=== PATIENT | male | born 1975 | race Caucasian/White ===

== ENCOUNTER 2018-01-29 00:15 | Inpatient (IN) | payer BC ==
[2018-01-29] MEDS ORDERED: HEPARIN SODIUM,PORCINE 5,000 UNIT/ML 1 ML VIAL IV PRN ×3 (00:48→15:04)
[2018-01-29 00:51] LABS: HCT 46.2 % (39.0-53.0); HGB 15.7 gm/dL (13.0-17.5); MCH 31.7 pg (25.0-35.0); MCV 93.1 fL (80.0-100.0); Mean Platelet Volume 7.2; Platelet Count 386 k/uL (150-450); RBC 4.96 m/uL (4.30-5.90); RDW 12.9 % (11.5-15.5); WBC 18.7 k/uL (3.8-10.6)
[2018-01-29 01:00] LABS: INR 1.1 (<1.2); Prothrombin Time 10.6 sec (9.0-12.0)
[2018-01-29] MEDS ORDERED: HEPARIN SOD,PORK IN 0.45% NACL 25,000 UNIT in 0.45% NACL 1 500ML.BAG IV SCH (01:00)
[2018-01-29 01:05] LABS: Partial Thromboplastin Time 87.9 sec (22.0-30.0)
[2018-01-29 01:10] LABS: ALT 55 U/L (21-72); AST 48 U/L (17-59); Albumin 3.9 g/dL (3.5-5.0); Alkaline Phosphatase 43 U/L (38-126); Anion Gap 8 mmol/L; Blood Urea Nitrogen 21 mg/dL (9-20); Carbon Dioxide 26 mmol/L (22-30); Chloride 107 mmol/L (98-107); Glucose 109 mg/dL (74-99); Magnesium 2.2 mg/dL (1.6-2.3); Potassium 4.7 mmol/L (3.5-5.1); Sodium 141 mmol/L (137-145); Total Bilirubin 0.7 mg/dL (0.2-1.3); Total Protein 6.8 g/dL (6.3-8.2)
[2018-01-29] MEDS ORDERED: NALOXONE 0.4 MG/ML 1 ML VIAL IV PRN (01:10)
[2018-01-29] MEDS ORDERED: MORPHINE SULFATE 4 MG/ML SYRINGE IV PRN (01:10)
[2018-01-29] MEDS ORDERED: NITROGLYCERIN SL TABS 0.4 MG TAB SUBLINGUAL PRN ×2 (01:12→12:29)
--- NOTE | 2018-01-29 01:14 | ED ---
Chest Pain HPI - General Chief Complaint: Chest Pain Stated Complaint: Chest pain Time Seen by Provider: 01/29/18 00:26 Source: patient, EMS Mode of arrival: EMS Limitations: no limitations - History of Present Illness Initial Comments: Toby is a 42-year-old overweight male with a history of coronary artery disease status post stenting when he was only 27 years old. Patient presents the ED via EMS from an outside facility for further evaluation of chest pain. Patient reports that he woke from sleep with a pressure-like retrosternal chest pain and a sensation of impending doom. Patient reports that he called his mother and asked her to take her to the hospital but he then began to feel worse so he called 911. Patient was given aspirin and nitro in route to the hospital with improvement in his chest pain and a subsequent relief of his feeling of impending doom. Patient was evaluated at outside hospital where an EKG revealed ST depressions in V5 and V6. Patient was started on heparin and transferred to our hospital for further evaluation by cardiology. Patient reports that since receiving the Nitro he has experiences no further chest pain. The patient reports he did have chest pain similar to this proximally 2 years ago and was evaluated, at that time he was noted to have pneumonia. - Related Data Allergies Allergy/AdvReac Type Severity Reaction Status Date / Time Penicillins Allergy Unknown Verified 01/29/18 00:32 Review of Systems ROS Statement: Those systems with pertinent positive or pertinent negative responses have been documented in the HPI. ROS Other: All systems not noted in ROS Statement are negative. EKG Findings - EKG Comments: EKG Findings:: EKG obtained upon arrival at 12:39 AM, rate is 72, rhythm is sinus, there is a normal axis, there are normal intervals, AR 160, QRS 100, QTC is 477. There are no acute ST elevations or depressions, the ST depressions that were seen previously or no longer present. No evidence of acute ischemia or infarction. Past Medical History Past Medical History: Hypertension Additional Past Medical History / Comment(s): heart stent, History of Any Multi-Drug Resistant Organisms: None Reported Past Surgical History: Heart Catheterization With Stent Additional Past Surgical History / Comment(s): splenectomy. Past Psychological History: No Psychological Hx Reported Smoking Status: Current every day smoker Past Alcohol Use History: Occasional Past Drug Use History: None Reported General Exam - General Exam Comments Initial Comments: Physical Exam GENERAL: Patient is well-developed and well-nourished. Patient is nontoxic and well- hydrated and is in no distress. HENT: Normocephalic, Atraumatic. EYES: PERRL, EOMI PULMONARY: Unlabored respirations. No audible rales rhonchi or wheezing was noted. CARDIOVASCULAR: There is a regular rate and rhythm without any murmurs gallops or rubs. ABDOMEN: Soft and nontender with normal bowel sounds. SKIN: Skin is clear with no lesions or rashes and otherwise unremarkable. : Deferred NEUROLOGIC: Patient is alert and oriented x3. Moving all extremities spontaneously MUSCULOSKELETAL: Normal extremities with adequate strength and full range of motion. No lower extremity swelling or edema. No calf tenderness. PSYCHIATRIC: Normal psychiatric evaluation. Limitations: no limitations Limitations: no limitations Course Vital Signs 01/29/18 01/29/18 00:24 01:49 Temperature 97.8 F Pulse Rate 84 67 Respiratory 18 18 Rate Blood Pressure 133/98 129/84 O2 Sat by Pulse 98 98 Oximetry Chest Pain [facility] Patient care was discussed with transferring physician prior to transfer Patient with an extensive cardiac history presenting with chest pain and ST depressions. Chest pain resolved with nitro. She was placed on heparin prior to transfer. Patient arrived to the ER, stable, no complaints of chest pain. Repeat labs were ordered. Repeat labs reveal improvement in the patient's previously noted leukocytosis of unknown origin Troponin increasing but still within normal limits PTT is elevated, we will titrate heparin appropriately Given the patient's significant history, EKG changes we'll plan to admit the patient for further cardiac evaluation. Disposition Clinical Impression: Chest pain Disposition: ADMITTED IP TO THIS HOSP
[2018-01-29 01:26] LABS: Lymphocytes # (M) 7.67 k/uL (1.0-4.8); Monocytes # (M) 0.75 k/uL (0-1.0); Neutrophils # (M) 10.29 k/uL (1.3-7.7); Neutrophils % (M) 55 %; Nucleated Red Blood Cells 0 /100 WBC (0-0); Total Cells Counted 100
[2018-01-29 01:40] LABS: Creatine Kinase MB 6.5 ng/mL (0.0-2.4)
[2018-01-29 01:47] LABS: Troponin I 0.447 ng/mL (0.000-0.034)
[2018-01-29] MEDS: NITROGLYCERIN OINT 1 INCH/GM PACKET TOPICAL SCH ×5 (03:11→23:38)
[2018-01-29 07:22] LABS: Creatine Kinase MB 6.4 ng/mL (0.0-2.4)
[2018-01-29 07:23] LABS: Troponin I 0.628 ng/mL (0.000-0.034)
--- NOTE | 2018-01-29 10:41 | P.CRDCN ---
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 His primary care physician is Dr. Pierce. He no longer follows with a heart doctor on a regular basis. He presents to the hospital on this occasion with symptoms of chest discomfort in his upper mid sternum area which she describes as severe tightness and heaviness, he states he was short of breath and diaphoretic, and was unable to speak because the pain was so bad. EKG on arrival here showed a normal sinus rhythm with no acute changes noted. Chest x-ray not yet performed. White blood cell count 18.7, hemoglobin 15.7, platelet count 386. Sodium 141, potassium 4.7, BUN 21, creatinine 0.8. Magnesium 2.2. Troponin 0.447, 0.628. BNP 164. At the time of my examination, patient is currently chest pain-free, he's been initiated on IV heparin and started on an aspirin as well as Nitropaste. His blood pressure this morning 120/90 with a heart rate in the 60s, 98% on 2 L of oxygen. Patients home medications included metoprolol and Xanax. Past Medical History Past Medical History: Hypertension Additional Past Medical History / Comment(s): heart stent, History of Any Multi-Drug Resistant Organisms: None Reported Past Surgical History: Heart Catheterization With Stent Additional Past Surgical History / Comment(s): splenectomy. Past Psychological History: No Psychological Hx Reported Smoking Status: Current every day smoker Past Alcohol Use History: Occasional Past Drug Use History: None Reported Medications and Allergies Home Medications Medication Instructions Recorded Confirmed Type ALPRAZolam [Xanax] 0.5 mg PO BID PRN 01/29/18 01/29/18 History Metoprolol Tartrate [Lopressor] 50 mg PO BID 01/29/18 01/29/18 History Allergies Allergy/AdvReac Type Severity Reaction Status Date / Time Penicillins Allergy Unknown Verified 01/29/18 09:05 Physical Exam Vitals: Vital Signs Temp Pulse Resp BP Pulse Ox 01/29/18 09:00 67 15 119/86 99 01/29/18 08:30 66 18 120/90 98 01/29/18 08:00 74 18 112/87 98 01/29/18 07:30 65 16 126/90 99 01/29/18 07:15 69 18 126/90 98 01/29/18 06:02 70 18 126/81 99 01/29/18 06:00 84 17 117/78 99 01/29/18 05:30 80 14 102/65 98 01/29/18 05:00 75 17 116/76 98 01/29/18 04:44 70 18 116/76 99 01/29/18 04:30 68 17 98 01/29/18 04:00 76 20 98 01/29/18 03:30 68 19 99 01/29/18 03:11 78 17 100 01/29/18 03:09 97.6 F 64 18 129/84 100 01/29/18 01:49 67 18 129/84 98 01/29/18 00:24 97.8 F 84 18 133/98 98 Intake and Output 01/28/18 01/29/18 01/29/18 22:59 06:59 14:59 Intake Total 118.839 Balance 118.839 Intake: Intake, IV Titration 118.839 Amount Heparin Sod,Pork in 0.45% 118.839 NaCl 25,000 unit In 0.45 % NaCl 1 500ml.bag @ 20 mls/hr IV .Q24H [facility] Rx#: [id number] Other: Weight 104.326 kg PHYSICAL EXAMINATION: GENERAL: This is a 42-year-old gentleman in no acute distress at the time of my examination HEENT: Head is atraumatic, normocephalic. Pupils equal, round. Sclera anicteric. Conjunctiva are clear. Mucous membranes of the mouth are moist. Neck is supple. There is no elevated jugular venous pressure. No carotid bruit is heard. HEART EXAMINATION: Heart S1, S2 normal. No murmur or gallop heard. CHEST EXAMINATION: Lungs are clear to auscultation and precussion. No chest wall tenderness is noted on palpation or with deep breathing. ABDOMEN: Soft, nontender. Bowel sounds are heard. No organomegaly noted. EXTREMITIES: 2+ peripheral pulses with no evidence of peripheral edema and no calf tenderness noted. NEUROLOGIC patient is awake, alert and oriented 3 . . Results 01/29/18 00:35 01/29/18 00:35 Cardiac Enzymes 01/29/18 01/29/18 01/29/18 Range/Units 00:35 00:35 06:05 AST 48 (17-59) U/L CK-MB (CK-2) 6.5 H 6.4 H (0.0-2.4) ng/mL Troponin I 0.447 H* 0.628 H* (0.000-0.034) ng/mL Coagulation 01/29/18 01/29/18 Range/Units 00:35 06:05 PT 10.6 (9.0-12.0) sec APTT 87.9 H 24.8 (22.0-30.0) sec CBC 01/29/18 Range/Units 00:35 WBC 18.7 H (3.8-10.6) k/uL RBC 4.96 (4.30-5.90) m/uL Hgb 15.7 (13.0-17.5) gm/dL Hct 46.2 (39.0-53.0) % Plt Count 386 (150-450) k/uL Comprehensive Metabolic Panel 01/29/18 Range/Units 00:35 Sodium 141 (137-145) mmol/L Potassium 4.7 (3.5-5.1) mmol/L Chloride 107 (98-107) mmol/L Carbon Dioxide 26 (22-30) mmol/L BUN 21 H (9-20) mg/dL Creatinine 0.82 (0.66-1.25) mg/dL Glucose 109 H (74-99) mg/dL Calcium 10.0 (8.4-10.2) mg/dL AST 48 (17-59) U/L ALT 55 (21-72) U/L Alkaline Phosphatase 43 (38-126) U/L Total Protein 6.8 (6.3-8.2) g/dL Albumin 3.9 (3.5-5.0) g/dL Current Medications Generic Name Dose Route Start Last Admin Trade Name Freq PRN Reason Stop Dose Admin Aspirin 325 mg 01/30/18 09:00 Aspirin PO DAILY NICHOLAS Heparin Sodium (Porcine) 0 unit 01/29/18 00:48 01/29/18 09:30 Heparin IV 4,000 unit PER PROTOCOL PRN Administration Low PTT Protocol Heparin Sodium (Porcine) 5,000 unit 01/29/18 01:12 Heparin IV Q6HR PRN Low PTT Protocol Heparin Sodium/Sodium Chloride 500 mls @ 20 mls/hr 01/29/18 01:00 01/29/18 09 :15 25,000 unit/ Sodium Chloride IV 10.58 units/kg/hr .Q24H NICHOLAS 22.07 mls/hr Titration Protocol Morphine Sulfate 4 mg 01/29/18 01:10 Morphine Sulfate (Inj) IV Q4HR PRN Severe Pain Naloxone HCl 0.2 mg 01/29/18 01:10 Narcan IV Q2M PRN Opioid Reversal Nitroglycerin 1 inch 01/29/18 01:15 01/29/18 09:12 Nitro-Bid Oint TOPICAL 1 inch Q6HR NICHOLAS Administration Nitroglycerin 0.4 mg 01/29/18 01:12 Nitrostat SUBLINGUAL Q5M PRN Chest Pain Intake and Output 01/28/18 01/29/18 01/29/18 22:59 06:59 14:59 Intake Total 118.839 Balance 118.839 Intake: Intake, IV Titration 118.839 Amount Heparin Sod,Pork in 0.45% 118.839 NaCl 25,000 unit In 0.45 % NaCl 1 500ml.bag @ 20 mls/hr IV .Q24H [facility] Rx#: [id number] Other: Weight 104.326 kg 01/29/18 00:35 01/29/18 00:35 EKG Interpretations (text) EKG shows normal sinus rhythm with no acute changes. Assessment and Plan Plan: Assessment and plan #1 symptoms of midsternal chest pressure and heaviness with associated diaphoresis and shortness of breath, abnormality in troponin noted here and EKG shows normal sinus rhythm with no acute changes. Clinical picture suggestive of non-Q-wave myocardial infarction. #2 known history of coronary artery disease with prior stent placement several years ago in [facility] by Dr. Rogers. #3 hypertension #4 hyperlipidemia #5 nicotine dependence Plan We will obtain a third troponin value, echocardiogram with Doppler study will be obtained. We will continue aspirin along with IV heparin, initiate beta genna and statin. Patient has been advised that he may need to undergo cardiac catheterization, the risks and benefits were again explained to the patient in detail and he states he is willing to proceed. Further recommendations will be based on these findings and the patient's clinical course. DNP note has been reviewed, I agree with a documented findings and plan of care. Patient was seen and examined.
[2018-01-29] MEDS ORDERED: INFLUENZA VACCINE (6 MOS+) 60 MCG/0.5 ML SYRINGE IM ONE (10:50)
[2018-01-29] MEDS ORDERED: MORPHINE ORAL SOLN 10 MG/5 ML CUP PO PRN (11:27)
[2018-01-29] MEDS: METOPROLOL TARTRATE 25 MG TAB PO SCH ×2 (11:51→20:26)
[2018-01-29] MEDS: ATORVASTATIN 80 MG TAB PO SCH (11:51)
--- NOTE | 2018-01-29 12:20 | ECHOF ---
Referral Reason:chest pain MEASUREMENTS -------- HEIGHT: 177.8 cm WEIGHT: 104.3 kg BP: 119/86 IVSd: 1.2 cm (0.6 - 1.1) LVIDd: 4.3 cm (3.9 - 5.3) LVPWd: 1.1 cm (0.6 - 1.1) IVSs: 1.4 cm LVIDs: 2.4 cm LVPWs: 1.3 cm LAESV Index (A-L): 23.05 ml/m Ao Diam: 3.9 cm (2.0 - 3.7) AV Cusp: 1.9 cm (1.5 - 2.6) LA Diam: 1.9 cm (2.7 - 3.8) EPSS: 1.0 cm MV E Jacky: 1.05 m/s MV DecT: 250 ms MV A Jacky: 1.09 m/s MV E/A Ratio: 0.96 RAP: 5.00 mmHg RVSP: 24.22 mmHg MV EF SLOPE: 81.96 mm/s (70 - 150) MV EXCURSION: 1.70 cm (> 18.000) FINDINGS -------- Sinus rhythm. This was a technically adequate study. The left ventricular size is normal. There is mild concentric left ventricular hypertrophy. Overa ll left ventricular systolic function is normal with, an EF between 55 - 60 %. The right ventricle is normal in size and function. Normal LA size by volume 22+/-6 ml/m2. The right atrium is normal in size. Aortic valve is trileaflet and is mildly thickened. Trace amount of aortic regurgitation. There is no evidence of aortic stenosis. The mitral valve leaflets are mildly thickened. Mild mitral annular calcification present. There is trace to mild mitral regurgitation. Trace tricuspid regurgitation present. Right ventricular systolic pressure is normal at < 35 mmHg. There is no evidence of pulmonary hypertension. The pulmonic valve was not well visualized. The aortic root is mildy dilated, up to 4.0 cm. Normal inferior vena cava with normal inspiratory collapse consistent with estimated right atrial pre ssure of 5 mmHg. There is no pericardial effusion. CONCLUSIONS -------- 1. Sinus rhythm. 2. This was a technically adequate study. 3. The left ventricular size is normal. 4. There is mild concentric left ventricular hypertrophy. 5. Overall left ventricular systolic function is normal with, an EF between 55 - 60 %. 6. Normal LA size by volume 22+/-6 ml/m2. 7. Aortic valve is trileaflet and is mildly thickened. 8. Trace amount of aortic regurgitation. 9. The mitral valve leaflets are mildly thickened. 10. Mild mitral annular calcification present. 11. There is trace to mild mitral regurgitation. 12. Trace tricuspid regurgitation present. 13. Right ventricular systolic pressure is normal at < 35 mmHg. 14. There is no evidence of pulmonary hypertension. 15. The pulmonic valve was not well visualized. 16. The aortic root is mildy dilated, up to 4.0 cm. 17. There is no pericardial effusion. [employer]KER: Daniel Velazquez RDCS
[2018-01-29] MEDS ORDERED: ATORVASTATIN 80 MG TAB PO STA (12:29)
[2018-01-29] MEDS ORDERED: ALPRAZolam 0.5 MG TAB PO PRN (12:29)
[2018-01-29] MEDS ORDERED: ASPIRIN 325 MG TAB PO STA (12:29)
[2018-01-29] MEDS: SODIUM CHLORIDE 0.9% 1,000 ML in EMPTY BAG 1 BAG IV ONE (12:47)
[2018-01-29 13:05] LABS: Creatine Kinase MB 5.9 ng/mL (0.0-2.4)
[2018-01-29 13:14] LABS: Troponin I 0.457 ng/mL (0.000-0.034)
[2018-01-29] MEDS ORDERED: fentaNYL (PF) 50 MCG/ML 2 ML AMP IV ONE (14:15)
[2018-01-29] MEDS ORDERED: VERAPAMIL 2.5 MG/ML 2 ML AMP ONE (14:18)
[2018-01-29] MEDS ORDERED: LIDOCAINE 1% INJ 10MG/ML (20 ML MDV) ONE (14:18)
[2018-01-29] MEDS ORDERED: HEPARIN SODIUM 1,000 UN/ML (10ML VL) ONE (14:18)
[2018-01-29] MEDS ORDERED: fentaNYL (PF) 50 MCG/ML 2 ML AMP ONE (14:18)
[2018-01-29] MEDS ORDERED: LIDOCAINE 1% INJ 10MG/ML (20 ML MDV) SQ ONE (14:25)
[2018-01-29] MEDS ORDERED: MIDAZOLAM 2 MG/2 ML VIAL ONE (14:25)
[2018-01-29] MEDS ORDERED: MIDAZOLAM 2 MG/2 ML VIAL IVP ONE (14:26)
[2018-01-29] MEDS ORDERED: VERAPAMIL SYRINGE (5 MG/10 ML) INTRAARTER ONE (14:27)
[2018-01-29] MEDS ORDERED: IV FLUID CONTINUATION 300 ML IV ONE (14:30)
[2018-01-29] MEDS ORDERED: HEPARIN SODIUM 1,000 UN/ML (10ML VL) IV ONE (14:41)
[2018-01-29] MEDS ORDERED: IOPAMIDOL-370 125ML BTL INJ ONE (14:48)
[2018-01-29] MEDS ORDERED: RX INFO: IV CONTRAST WAS GIVEN 1 EACH MISC MISCELLANE PRN (15:01)
[2018-01-29] MEDS ORDERED: SODIUM CHLORIDE 0.9% 1,000 ML IV SCH (15:15)
[2018-01-29 15:56] LABS: HCT 45.8 % (39.0-53.0); HGB 14.5 gm/dL (13.0-17.5); MCHC 31.6 g/dL (31.0-37.0); MCV 94.7 fL (80.0-100.0); Mean Platelet Volume 7.2; Platelet Count 396 k/uL (150-450); RBC 4.84 m/uL (4.30-5.90); RDW 13.1 % (11.5-15.5); WBC 20.6 k/uL (3.8-10.6)
[2018-01-29 16:04] LABS: INR 1.1 (<1.2); Partial Thromboplastin Time 89.9 sec (22.0-30.0); Prothrombin Time 10.9 sec (9.0-12.0)
[2018-01-29 16:32] LABS: Eosinophils # (M) 0.82 k/uL (0-0.7); Lymphocytes # (M) 8.65 k/uL (1.0-4.8); Monocytes # (M) 1.85 k/uL (0-1.0); Neutrophils # (M) 9.27 k/uL (1.3-7.7); Neutrophils % (M) 45 %; Nucleated Red Blood Cells 0 /100 WBC (0-0); Total Cells Counted 100
[2018-01-29 16:33] LABS: Toxic Granulation Present
--- NOTE | 2018-01-29 16:53 | P.HPIM ---
History of Present Illness This is a pleasant 42 years old male with past medical history of hypertension, coronary artery disease status post stenting. He presents because of central chest pain severe enough to prevent him from talking Like a fist sitting on his chest associated with some dyspnea. The pain woke him up from sleep. He follow -up with Dr. Pierce recommended him, stress test most likely because of his lifestyle and risk factors. Patient is obese with has heavy smoker. However he could not have a stress test done because his co-pay was $800 with his insurance so rejected to do the test. 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 And his been evaluated for cardiothoracic surgery for possible CABG On admission/shows elevated troponins. INR 1.1, and progressive leukocytosis from 18.7 to 20.6 K, mostly related to his heart attack. LFTs were unremarkable. Echo shows EF 55-60%. With mild LVH, EKG showing 72 BPM with no significant ST deviation Review of Systems CONSTITUTIONAL: No fever, no malaise, no fatigue. HEENT: No recent visual problems or hearing problems. Denied any sore throat. CARDIOVASCULAR: No orthopnea, PND, no palpitations, no syncope. PULMONARY: No shortness of breath, no cough, no hemoptysis. GASTROINTESTINAL: No diarrhea, no nausea, no vomiting, no abdominal pain. Normoactive bowel sounds. NEUROLOGICAL: No headaches, no weakness, no numbness. HEMATOLOGICAL: Denies any bleeding or petechiae. GENITOURINARY: Denies any burning micturition, frequency, or urgency. MUSCULOSKELETAL/RHEUMATOLOGICAL: Denies any joint pain, swelling, or any muscle pain. ENDOCRINE: Denies any polyuria or polydipsia. Past Medical History Past Medical History: Hypertension Additional Past Medical History / Comment(s): heart stent, Last Myocardial Infarction Date:: 2011 History of Any Multi-Drug Resistant Organisms: None Reported Past Surgical History: Heart Catheterization With Stent Additional Past Surgical History / Comment(s): splenectomy. Past Anesthesia/Blood Transfusion Reactions: No Reported Reaction Date of Last Stent Placement:: 2006 Smoking Status: Current every day smoker - Past Family History Father Family Medical History: Diabetes Mellitus Mother Family Medical History: Diabetes Mellitus Medications and Allergies Home Medications Medication Instructions Recorded Confirmed Type ALPRAZolam [Xanax] 0.5 mg PO BID PRN 01/29/18 01/29/18 History Metoprolol Tartrate [Lopressor] 50 mg PO BID 01/29/18 01/29/18 History Allergies Allergy/AdvReac Type Severity Reaction Status Date / Time Penicillins Allergy Unknown Verified 01/29/18 09:05 Physical Exam Vitals: Vital Signs Temp Pulse Pulse Resp BP BP Pulse Ox 01/29/18 11:36 97.6 F 77 16 141/91 01/29/18 09:00 67 15 119/86 99 01/29/18 08:30 66 18 120/90 98 01/29/18 08:00 74 18 112/87 98 01/29/18 07:30 65 16 126/90 99 01/29/18 07:15 69 18 126/90 98 01/29/18 06:02 70 18 126/81 99 01/29/18 06:00 84 17 117/78 99 01/29/18 05:30 80 14 102/65 98 01/29/18 05:00 75 17 116/76 98 01/29/18 04:44 70 18 116/76 99 01/29/18 04:30 68 17 98 01/29/18 04:00 76 20 98 01/29/18 03:30 68 19 99 01/29/18 03:11 78 17 100 01/29/18 03:09 97.6 F 64 18 129/84 100 01/29/18 01:49 67 18 129/84 98 01/29/18 00:24 97.8 F 84 18 133/98 98 Intake and Output 01/28/18 01/29/18 01/29/18 22:59 06:59 14:59 Intake Total 118.839 Balance 118.839 Intake: Intake, IV Titration 118.839 Amount Heparin Sod,Pork in 0.45% 118.839 NaCl 25,000 unit In 0.45 % NaCl 1 500ml.bag @ 20 mls/hr IV .Q24H [facility] Rx#: [id number] Other: Weight 104.326 kg GENERAL: The patient is alert and oriented x3, not in any acute distress. Well developed, well nourished. HEENT: Pupils are round and equally reacting to light. EOMI. No scleral icterus. No conjunctival pallor. Normocephalic, atraumatic. No pharyngeal erythema. No thyromegaly. CARDIOVASCULAR: S1 and S2 present. No murmurs, rubs, or gallops. PULMONARY: Chest is clear to auscultation, no wheezing or crackles. ABDOMEN: Soft, nontender, nondistended, normoactive bowel sounds. No palpable organomegaly. MUSCULOSKELETAL: No joint swelling or deformity. EXTREMITIES: No cyanosis, clubbing, or pedal edema. NEUROLOGICAL: Gross neurological examination did not reveal any focal deficits. SKIN: No rashes. Results CBC & Chem 7: 01/29/18 15:27 01/29/18 00:35 Labs: Abnormal Lab Results - Last 24 Hours (Table) 01/29/18 01/29/18 01/29/18 Range/Units 00:35 00:35 00:35 WBC 18.7 H (3.8-10.6) k/uL Neutrophils # (Manual) 10.29 H (1.3-7.7) k/uL Lymphocytes # (Manual) 7.67 H (1.0-4.8) k/uL APTT (22.0-30.0) sec BUN 21 H (9-20) mg/dL Glucose 109 H (74-99) mg/dL Total Creatine Kinase 346 H (55-170) U/L CK-MB (CK-2) 6.5 H (0.0-2.4) ng/mL Troponin I 0.447 H* (0.000-0.034) ng/mL 01/29/18 01/29/18 01/29/18 Range/Units 00:35 06:05 12:00 WBC (3.8-10.6) k/uL Neutrophils # (Manual) (1.3-7.7) k/uL Lymphocytes # (Manual) (1.0-4.8) k/uL APTT 87.9 H (22.0-30.0) sec BUN (9-20) mg/dL Glucose (74-99) mg/dL Total Creatine Kinase 281 H 230 H (55-170) U/L CK-MB (CK-2) 6.4 H 5.9 H (0.0-2.4) ng/mL Troponin I 0.628 H* 0.457 H* (0.000-0.034) ng/mL Thrombosis Risk Factor Assmnt - Choose All That Apply Any of the Below Risk Factors Present?: Yes Each Factor Represents 1 point: Age 41-60 years, Obesity (BMI >25) Other Risk Factors: No Other congenital or acquired thrombophilia - If yes, enter type in comment: No Thrombosis Risk Factor Assessment Total Risk Factor Score: 2 Thrombosis Risk Factor Assessment Level: Low Risk Assessment and Plan Assessment: Acute coronary syndrome, has been evaluated currently for CABG Current smoker Hypertensive Obesity Leukocytosis, mostly reactive. No need for antibiotics now presents risks more than benefits. Plan: This is a pleasant 42 years old male who presents because of heart attack. Cardiology and cardiothoracic surgery following the patient. Patient is been evaluated for possible surgical intervention. Patient was started on aspirin, heparin drip, statin, which will be continued. Pain management.Labs and medication were resumed. Continue same treatment. Continue with symptomatic treatment. Resume home medication. Monitor lytes and vitals. DVT and GI prophylaxis. Further recommendationsof the clinical course of the patient DVT prophylaxis: heparin GI Prophylaxis: Pepcid Prognosis is guarded
[2018-01-29] MEDS: HEPARIN SOD,PORK IN 0.45% NACL 25,000 UNIT in 0.45% NACL 1 500ML.BAG IV SCH (17:36)
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
--- NOTE | 2018-01-29 18:20 | US ---
EXAMINATION TYPE: US carotid duplex BILAT DATE OF EXAM: 01/29/2018 COMPARISON: NONE CLINICAL HISTORY: PreOp Cardiac Surgery. PreoP CABAGE EXAM MEASUREMENTS: RIGHT: Peak Systolic Velocity (PSV) cm/sec ----- Right CCA: 60.7 ----- Right ICA: 48.1 ----- Right ECA: 75.8 ICA/CCA ratio: 0.9 RIGHT: End Diastole cm/sec ----- Right CCA: 24.1 ----- Right ICA: 21.8 ----- Right ECA: 25.8 LEFT: Peak Systolic Velocity (PSV) cm/sec ----- Left CCA: 72.2 ----- Left ICA: 65.9 ----- Left ECA: 69.4 ICA/CCA ratio: 0.9 LEFT: End Diastole cm/sec ----- Left CCA: 27.1 ----- Left ICA: 28.9 ----- Left ECA: 23.2 VERTEBRALS (direction of flow): Right Vertebral: Antegrade Left Vertebral: Antegrade Rhythm: Normal No significant stenosis seen. IMPRESSION: There is antegrade flow in the vertebral arteries. The images and measurements suggest u p to 30% stenosis in both internal carotid arteries. Criteria for Assigning % of Stenosis / Diameter reduction (Estimation based on the indirect measurements of the internal carotid artery velocities (ICA PSV). 1. Normal (no stenosis)=ICA PSV < 125 cm/s: ratio < 2.0: ICA EDV<40 cm/s. 2. Less than 50% stenosis=ICA PSV < 125 cm/s: ratio < 2.0: ICA EDV<40 cm/s. 3. 50 to 69% stenosis=ICA PSV of 125 to 230 cm/s: ration 2.0 ? 4.0: ICA EDV 40-100 cm/s. 4. Greater than 70% stenosis to near occlusion= ICA PSV > 230 cm/s: ratio > 4.0: ICA EDV > 100 cm/s. 5. Near occlusion= ICA PSV velocities may be low or undetectable: variable ratio and ICA EDV. 6. Total occlusion=unable to detect flow.
--- NOTE | 2018-01-29 19:57 | CC ---
CARDIAC CATHETERIZATION REPORT Mr. Castillo is a 42-year-old male known history of hypertension, hyperlipidemia, chronic tobacco use, history of coronary artery disease status post percutaneous revascularization done in 2006, who presented to the emergency room with symptoms of chest discomfort. He had mild elevation of his troponin with no significant EKG changes. In view of that, recommendation made regarding cardiac catheterization. The procedures, risks and complications were discussed with the patient who is in full understanding and agreement. PROCEDURE: Patient was brought to the optical lab technician in a fasting semi-sedated state after receiving fentanyl and Benadryl and achieving moderate conscious sedated state. Using Xylocaine anesthesia and Seldinger technique, a 6-Albanian sheath was introduced in the right radial artery. Selective right and left coronary angiography performed using 5-Albanian 4 bend right and left Andree catheter. Multiple views of coronary artery including hemiaxial views were obtained. Following that, a 5-Albanian tight pigtail catheter was introduced into the left ventricle and a 30 degree YOUNGBLOOD view of the left ventricle was obtained. Following that, catheter and sheath were removed. Hemostasis was obtained with deployment of a TR band. There was no immediate complications. Patient is returned to his room in stable condition. Of note, the patient received 5000 units of intravenous heparin. FINDINGS: LEFT MAIN: This is a large-sized vessel aneurysmal bifurcating to the left circumflex, left anterior descending artery, left main coronary artery has no evidence of high- grade stenosis. LEFT ANTERIOR DESCENDING CORONARY ARTERY: This is a large-sized vessel reaching toward the apex with a wraparound the apex segment. The left anterior descending artery proximal stent segment is stented. The stent in the distal segment of it has a complex area of stenosis up to 95-99 percent. The rest of the vessel has no high-grade stenosis. LEFT CIRCUMFLEX: This is a nondominant vessel, large in caliber giving rise to 2 obtuse marginal branches. The left circumflex as well as branches have no evidence of obstructive coronary artery disease. RIGHT CORONARY ARTERY : This vessel is totally occluded in the mid segment with a long gap with late filling of the PDA and PLV with ipsilateral collaterals and there is also contralateral collaterals. LEFT VENTRICULOGRAM: Left ventriculogram was performed in 30 degree YOUNGBLOOD view and revealed a normal left ventricle size and systolic function. The ejection fraction is 55%. There was no significant mitral regurgitation. HEMODYNAMICS: There was no gradient across the aortic valve and left ventricle end-diastolic pressure is 14-18 mmHg. CONCLUSION: 1. Totally occluded right coronary artery that appears to be chronic occlusion. 2. Complex lesion and in-stent restenosis of the proximal LAD. 3. Collaterals to the left coronary system from the ipsilateral and collaterals and contralateral collaterals. 4. Preserved left ventricular size and systolic function. RECOMMENDATION: In view of findings and anatomy, I have recommend proceeding with evaluation for possible coronary artery bypass grafting. If he was felt not to be a good surgical candidate, then attempt to Re angioplasty and stent the LAD and angioplasty of chronic total occlusion of the right coronary artery could be considered. Those findings and recommendation were discussed with the patient and his family who are in full understanding and agreement. Duration of procedure: 30 minutes. MMODL / IJN: [id number] /
[2018-01-29] MEDS: FAMOTIDINE 20 MG/2 ML VIAL IV SCH (20:26)
[2018-01-29] MEDS: ALPRAZolam 0.25 MG TAB PO PRN (20:26)
--- NOTE | 2018-01-29 20:51 | XR ---
EXAMINATION TYPE: XR chest 2V DATE OF EXAM: 01/29/2018 COMPARISON: 04/29/2011 HISTORY: Cardiac surgery TECHNIQUE: Frontal and lateral views of the chest are obtained. FINDINGS: There is some patchy atelectasis in the mid and lower lung hahn. Heart and mediastinum a re normal. There is no heart failure. There is no pleural effusion. Bony thorax appears intact. IMPRESSION: New bilateral patchy atelectasis compared to old exam. Normal heart.
[2018-01-29] MEDS: MUPIROCIN 2% OINT 22 GM TUBE NASAL SCH (23:31)
[2018-01-30 00:19] LABS: Appearance,Urine Clear (Clear); Bilirubin,Urine Negative (Negative); Blood,Urine Negative (Negative); Color,Urine Yellow; Glucose,Urine (UA) Negative (Negative); Ketones,Urine 1+ (Negative); Leukocyte Esterase,Urine Negative (Negative); Nitrite,Urine Negative (Negative); Protein,Urine Negative (Negative); Specific Gravity,Urine 1.043 (1.001-1.035); Urobilinogen,Urine <2.0 mg/dL (<2.0)
[2018-01-30] MEDS: NITROGLYCERIN OINT 1 INCH/GM PACKET TOPICAL SCH ×4 (06:18→23:33)
[2018-01-30 06:37] LABS: Anion Gap 7 mmol/L; Blood Urea Nitrogen 14 mg/dL (9-20); Calcium 9.7 mg/dL (8.4-10.2); Carbon Dioxide 24 mmol/L (22-30); Chloride 107 mmol/L (98-107); Cholesterol 94 mg/dL (<200); Glucose 110 mg/dL (74-99); HDL Cholesterol 28 mg/dL (40-60); LDL Cholesterol,Calculated 39 mg/dL (0-99); Potassium 5.1 mmol/L (3.5-5.1); Sodium 138 mmol/L (137-145); Triglycerides 134 mg/dL (<150)
[2018-01-30 06:50] LABS: Basophils # (A) 0.1 k/uL (0-0.2); Basophils % (A) 1 %; Eosinophils # (A) 0.6 k/uL (0-0.7); Eosinophils % (A) 4 %; HCT 46.2 % (39.0-53.0); HGB 14.8 gm/dL (13.0-17.5); Lymphocytes # (A) 4.8 k/uL (1.0-4.8); Lymphocytes % (A) 32 %; MCH 30.9 pg (25.0-35.0); MCHC 32.1 g/dL (31.0-37.0); MCV 96.2 fL (80.0-100.0); Mean Platelet Volume 7.2; Monocytes # (A) 1.1 k/uL (0-1.0); Monocytes % (A) 7 %; Neutrophils # (A) 8.3 k/uL (1.3-7.7); Neutrophils % (A) 55 %; Platelet Count 398 k/uL (150-450); RDW 13.2 % (11.5-15.5); WBC 15.1 k/uL (3.8-10.6)
[2018-01-30] MEDS ORDERED: MD COMMUNICATION TO PHARMACY 1 EACH MISC PO ONE ×3 (07:28)
[2018-01-30 07:44] LABS: T4, Free (Free Thyroxine) 0.96 ng/dL (0.78-2.19)
[2018-01-30] MEDS: ATORVASTATIN 80 MG TAB PO SCH (08:30)
[2018-01-30] MEDS: ALPRAZolam 0.25 MG TAB PO PRN (08:30)
[2018-01-30] MEDS: METOPROLOL TARTRATE 25 MG TAB PO SCH ×2 (08:30→22:08)
[2018-01-30] MEDS: ASPIRIN 81 MG PO SCH (08:30)
[2018-01-30] MEDS: FAMOTIDINE 20 MG/2 ML VIAL IV SCH ×2 (08:31→22:08)
[2018-01-30] MEDS ORDERED: ASPIRIN 325 MG TAB PO SCH (09:00)
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
--- NOTE | 2018-01-30 10:53 | P.CNPUL ---
History of Present Illness Consult date: 01/30/18 Requesting physician: Latonya Melara Reason for consult: dyspnea, other Chief complaint: Chest pain History of present illness: This is a pleasant 42-year-old gentleman who follows with Dr. Bansal as his primary care physician. He has a history of hypertension, anxiety, chronic and ongoing tobacco dependence, coronary artery disease with previous stent placement. He presented here yesterday as a transfer from an outside facility after presenting there with significant chest discomfort. He states he was taking a nap before going into work as he works the third shift approximately 6 PM and awoke to midsternal pressure and significant pain. He was barely able to speak but he was able to call 911 and get to the emergency room. He was found have a non-Q-wave ST segment elevation myocardial infarction. He had subsequent undergone cardiac catheterization which revealed a totally occluded right coronary artery that appeared to be chronically occluded. There is also a complex lesion and in-stent restenosis of the proximal LAD. He was recommended coronary artery bypass surgery which he is agreeable to. The plan is for surgery tomorrow morning. He has been smoking for 26 years. He states he was given inhaler possibly Symbicort in the past but has not used one in quite some time. No rescue inhaler. He is able to do his day-to-day activities without any significant shortness of breath. Preop FEV1 value is 50 % of predicted. His chest x-ray reveals bilateral patchy atelectasis. He has been educated regarding use of the incentive spirometer. He is maintaining good O2 saturations in the low 90s on room air. He's been afebrile. Hemodynamically stable. He remains on a heparin drip. He is currently free of any chest discomfort. Review of Systems Constitutional: Denies chills, Denies fever Eyes: denies blurred vision, denies decreased vision Ears: deny: decreased hearing Ears, nose, mouth and throat: Denies headache, Denies sore throat Cardiovascular: Reports chest pain, Reports decreased exercise tolerance, Reports dyspnea on exertion, Reports shortness of breath Respiratory: Reports dyspnea Gastrointestinal: Denies abdominal pain, Denies diarrhea, Denies nausea, Denies vomiting Genitourinary: Reports as per HPI Musculoskeletal: Denies myalgias Integumentary: Denies pruritus, Denies rash Neurological: Denies numbness, Denies weakness Psychiatric: Reports anxiety Endocrine: Denies fatigue, Denies weight change Allergic/Immunologic: Reports as per HPI Past Medical History Past Medical History: Coronary Artery Disease (CAD), Hypertension Additional Past Medical History / Comment(s): heart stent 2006, obesity Last Myocardial Infarction Date:: 2011 History of Any Multi-Drug Resistant Organisms: None Reported Past Surgical History: Appendectomy, Heart Catheterization With Stent Additional Past Surgical History / Comment(s): splenectomy. Past Anesthesia/Blood Transfusion Reactions: No Reported Reaction Date of Last Stent Placement:: 2006 Past Psychological History: Anxiety Smoking Status: Current every day smoker Past Alcohol Use History: Occasional Past Drug Use History: None Reported - Past Family History Father Family Medical History: Coronary Artery Disease (CAD), Diabetes Mellitus, Hypertension Mother Family Medical History: Diabetes Mellitus, Hypertension Medications and Allergies Home Medications Medication Instructions Recorded Confirmed Type ALPRAZolam [Xanax] 0.5 mg PO BID PRN 01/29/18 01/29/18 History Metoprolol Tartrate [Lopressor] 50 mg PO BID 01/29/18 01/29/18 History Allergies Allergy/AdvReac Type Severity Reaction Status Date / Time Penicillins Allergy Unknown Verified 01/29/18 09:05 Physical Exam Vitals: Vital Signs Temp Pulse Pulse Resp BP Pulse Ox 01/30/18 08:00 98.9 F 87 16 131/66 94 L 01/30/18 04:00 97.4 F L 80 17 125/76 93 L 01/30/18 00:00 98.0 F 88 16 130/78 94 L 01/29/18 20:00 98.3 F 96 18 162/93 95 01/29/18 17:46 75 16 143/88 96 01/29/18 16:16 71 138/90 01/29/18 15:46 75 135/87 01/29/18 15:31 72 133/83 01/29/18 15:16 77 137/91 01/29/18 11:36 97.6 F 77 16 141/91 Intake and Output 01/29/18 01/30/18 01/30/18 22:59 06:59 14:59 Intake Total 200 602.703 240 Output Total 800 Balance -600 602.703 240 Intake: Intake, IV Titration 200 602.703 Amount Heparin Sod,Pork in 0.45% 102.703 NaCl 25,000 unit In 0.45 % NaCl 1 500ml.bag @ 9. 586 UNITS/KG/HR 20 mls/hr IV .Q24H [facility] Rx#: [id number] Sodium Chloride 0.9% 1, 200 500 000 ml @ 100 mls/hr IV . Q10H [facility] Rx#:[id number] Oral 240 Output: Urine 800 Other: Voiding Method Urinal Urinal Weight 102.1 kg - Constitutional General appearance: cooperative, no acute distress, obese - EENT Eyes: EOMI, PERRLA ENT: hearing grossly normal Ears: bilateral: normal - Neck Neck: normal ROM Carotids: bilateral: upstroke normal Thyroid: bilateral: normal size - Respiratory Respiratory: bilateral: CTA, diminished - Cardiovascular Rhythm: regular Heart sounds: normal: S1, S2 - Gastrointestinal General gastrointestinal: normal bowel sounds - Integumentary Integumentary: normal turgor - Neurologic Neurologic: CNII-XII intact - Musculoskeletal Musculoskeletal: gait normal - Psychiatric Psychiatric: A&O x's 3, appropriate affect, intact judgment & insight Results - Laboratory Findings CBC and BMP: 01/30/18 05:40 01/30/18 05:40 PT/INR, D-dimer PT 10.9 sec (9.0-12.0) 01/29/18 15:27 INR 1.1 (<1.2) 01/29/18 15:27 Abnormal lab findings: Abnormal Labs 01/29/18 01/29/18 01/29/18 00:35 00:35 00:35 WBC 18.7 H Neutrophils # Neutrophils # (Manual) 10.29 H Lymphocytes # (Manual) 7.67 H Monocytes # Monocytes # (Manual) Eosinophils # (Manual) APTT BUN 21 H Glucose 109 H Total Creatine Kinase 346 H CK-MB (CK-2) 6.5 H Troponin I 0.447 H* HDL Cholesterol TSH Ur Specific [place] Urine Ketones 01/29/18 01/29/18 01/29/18 00:35 06:05 12:00 WBC Neutrophils # Neutrophils # (Manual) Lymphocytes # (Manual) Monocytes # Monocytes # (Manual) Eosinophils # (Manual) APTT 87.9 H BUN Glucose Total Creatine Kinase 281 H 230 H CK-MB (CK-2) 6.4 H 5.9 H Troponin I 0.628 H* 0.457 H* HDL Cholesterol TSH Ur Specific [place] Urine Ketones 01/29/18 01/29/18 01/29/18 15:27 15:27 23:00 WBC 20.6 H Neutrophils # Neutrophils # (Manual) 9.27 H Lymphocytes # (Manual) 8.65 H Monocytes # Monocytes # (Manual) 1.85 H Eosinophils # (Manual) 0.82 H APTT 89.9 H BUN Glucose Total Creatine Kinase CK-MB (CK-2) Troponin I HDL Cholesterol TSH Ur Specific [place] 1.043 H Urine Ketones 1+ H 01/30/18 01/30/18 05:40 05:40 WBC 15.1 H Neutrophils # 8.3 H Neutrophils # (Manual) Lymphocytes # (Manual) Monocytes # 1.1 H Monocytes # (Manual) Eosinophils # (Manual) APTT BUN Glucose 110 H Total Creatine Kinase CK-MB (CK-2) Troponin I HDL Cholesterol 28 L TSH 6.650 H Ur Specific [place] Urine Ketones - Diagnostic Findings Chest x-ray: image reviewed Assessment and Plan Assessment: Impression: #1 Acute non-ST segment elevation myocardial infarction. #2 Coronary artery disease with 100% occluded right coronary artery possibly chronic. There is also in-stent restenosis of the LAD with 95% occlusion. Plan is for coronary artery bypass grafting on 01/31/2018. #3 Previous history of coronary artery disease with stent placement to the LAD. #4 Hypertension. #5 Chronic and ongoing tobacco dependence with a component of chronic obstructive pulmonary disease. FEV1 value 50% of predicted. #6 Obesity. #7 Anxiety. Plan: The patient was seen and evaluated by Dr. Jean. Chest x-ray, labs and bedside spirometry reviewed. FEV1 value 50% of predicted. We will initiate DuoNeb inhalations, Pulmicort and Perforomist. He's been educated regarding the use of the incentive spirometer and the importance of cough and deep breathing exercises. He is also educated regarding the importance of complete smoking cessation. NicoDerm patch will be offered. We will continue to follow and make further recommendations based on his clinical status. I, the cosigning physician, performed a history & physical examination of the patient. Lungs sounds diminished. Maintaining good O2 saturations in the 90s on room air. I discussed the assessment and plan of care with my nurse practitioner, Faviola Luna. I attest to the above consultation as dictated by her.
--- NOTE | 2018-01-30 12:10 | PN ---
PROGRESS NOTE Mr. Castillo is a 42-year-old male with a known history of coronary disease who presented with non ST-segment elevation myocardial infarction, underwent coronary angiography yesterday, was found to have a totally occluded right coronary artery with significant disease in the LAD and the prior stented segment and a complex appearance. He was evaluated by Dr. Green and scheduled to undergo coronary artery bypass grafting tomorrow. He denies any chest pain. No dizziness. No palpitation. He denies any nausea. He continued to be on aspirin once a day, Lipitor 80 mg daily, IV heparin, metoprolol tartrate 25 mg twice a day, nitro paste 1 inch q.6 hours. PHYSICAL EXAMINATION: Blood pressure 131/60 with a heart rate in the 80s. LUNGS: Clear. HEART: Regular rate and rhythm. S1, S2. No S3. No rub. ABDOMEN: Soft, nontender. EXTREMITIES: No edema. Right radial pulse intact. LAB DATA: White blood cell of 15.1, hemoglobin 14.8, potassium 5.1, BUN and creatinine 14 and 0.8. IMPRESSION: 1. Non ST-segment elevation myocardial infarction with two-vessel severe coronary artery disease. 2. Status post stenting of the left anterior descending artery in 2006. 3. Hypertension. 4. Chronic tobacco use. 5. Hyperlipidemia. RECOMMENDATION: Patient will undergo coronary artery bypass grafting tomorrow. He will continue on the present regimen, depending his surgical intervention. I have discussed with him the recommendations and the rationale behind the plan. I feel that the risk of restenoses in the LAD and the likelihood of inability to recannulize the right coronary artery is high and I believe that a dual arterial conduit will be helpful in his case. MMODL / IJN: [id number] /
[2018-01-30 12:19] LABS: Hepatitis A Antibody IgM Non-Reactive (Non-Reactive); Hepatitis B Core IgM Non-Reactive (Non-Reactive)
[2018-01-30] MEDS: MUPIROCIN 2% OINT 22 GM TUBE NASAL SCH ×2 (12:41→22:08)
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
--- NOTE | 2018-01-30 15:11 | P.PN ---
Subjective Progress Note Date: 01/30/18 Principal diagnosis: NSTEMI Mr. Castillo is a 42-year-old male with a past medical history of hypertension, hyperlipidemia, nicotine dependence, coronary artery disease with prior stenting performed in 2003 2004 in [place] coming into the hospital with a chief complaint of chest discomfort in the upper mid sternum. Patient describes it as severe tightness and heaviness and he was short of breath and diaphoretic. Patient pain was so severe that he was unable to speak at the time when he had the chest pain. In the ED patient had elevated troponins and started on IV heparin. Patient subsequently underwent cardiac cath which revealed a total occluded right coronary artery that appeared to be chronically occluded. There is also a complex lesion and in-stent restenosis of the proximal LAD. So he was recommended to get a coronary artery bypass graft that is scheduled for tomorrow morning. Patient has risk factors of smoking for the past 26 years almost 1 pack per day. Today the patient is lying in bed appears to be in no acute distress. On review of systems- Patient denies having any chest pain or difficulty in breathing. Patient denies having any nausea vomiting or diarrhea. He denies having any dysuria or hematuria. Patient denies having any weakness in his extremities. Objective - Vital Signs Vital signs: Vital Signs Temp 97.7 F 01/30/18 12:00 Pulse 74 01/30/18 12:00 Resp 16 01/30/18 12:00 BP 125/86 01/30/18 12:00 Pulse Ox 98 01/30/18 12:00 Intake & Output 01/29/18 01/30/18 01/30/18 18:59 06:59 18:59 Intake Total 368.839 802.703 600 Output Total 800 Balance 368.839 2.703 600 Weight 102.1 kg Intake: IV 50 Intake, IV Titration 318.839 802.703 Amount Heparin Sod,Pork in 0.45% 118.839 NaCl 25,000 unit In 0.45 % NaCl 1 500ml.bag @ 20 mls/hr IV .Q24H [facility] Rx#: [id number] Heparin Sod,Pork in 0.45% 102.703 NaCl 25,000 unit In 0.45 % NaCl 1 500ml.bag @ 9. 586 UNITS/KG/HR 20 mls/hr IV .Q24H [facility] Rx#: [id number] Sodium Chloride 0.9% 1, 700 000 ml @ 100 mls/hr IV . Q10H [facility] Rx#:[id number] Sodium Chloride 0.9% 1, 200 000 ml In Empty Bag 1 bag @ 1 ML/KG/HR 104.32 mls/ hr IV .Q9H36M ONE Rx#: [id number] Oral 600 Output: Urine 800 Other: Voiding Method Urinal Urinal - Exam GENERAL: The patient is alert and oriented x3, not in any acute distress. Well developed, well nourished. HEENT: Pupils are round and equally reacting to light. EOMI. No scleral icterus. No conjunctival pallor. Normocephalic, atraumatic. No pharyngeal erythema. No thyromegaly. CARDIOVASCULAR: S1 and S2 present. No murmurs, rubs, or gallops. PULMONARY: Chest is clear to auscultation, no wheezing or crackles. ABDOMEN: Soft, nontender, nondistended, normoactive bowel sounds. No palpable organomegaly. MUSCULOSKELETAL: No joint swelling or deformity. EXTREMITIES: No cyanosis, clubbing, or pedal edema. NEUROLOGICAL: Gross neurological examination did not reveal any focal deficits. SKIN: No rashes. - Labs CBC & Chem 7: 01/30/18 05:40 01/30/18 05:40 Labs: Abnormal Lab Results - Last 24 Hours (Table) 01/29/18 01/29/18 01/29/18 Range/Units 15:27 15:27 23:00 WBC 20.6 H (3.8-10.6) k/uL Neutrophils # (1.3-7.7) k/uL Neutrophils # (Manual) 9.27 H (1.3-7.7) k/uL Lymphocytes # (Manual) 8.65 H (1.0-4.8) k/uL Monocytes # (0-1.0) k/uL Monocytes # (Manual) 1.85 H (0-1.0) k/uL Eosinophils # (Manual) 0.82 H (0-0.7) k/uL APTT 89.9 H (22.0-30.0) sec Glucose (74-99) mg/dL HDL Cholesterol (40-60) mg/dL TSH (0.465-4.680) mIU/L Ur Specific [place] 1.043 H (1.001-1.035) Urine Ketones 1+ H (Negative) Crossmatch 01/30/18 01/30/18 01/30/18 Range/Units 05:40 05:40 08:39 WBC 15.1 H (3.8-10.6) k/uL Neutrophils # 8.3 H (1.3-7.7) k/uL Neutrophils # (Manual) (1.3-7.7) k/uL Lymphocytes # (Manual) (1.0-4.8) k/uL Monocytes # 1.1 H (0-1.0) k/uL Monocytes # (Manual) (0-1.0) k/uL Eosinophils # (Manual) (0-0.7) k/uL APTT (22.0-30.0) sec Glucose 110 H (74-99) mg/dL HDL Cholesterol 28 L (40-60) mg/dL TSH 6.650 H (0.465-4.680) mIU/L Ur Specific [place] (1.001-1.035) Urine Ketones (Negative) Crossmatch See Detail Microbiology - Last 24 Hours (Table) 01/29/18 23:00 Urine Culture - Preliminary Urine,Clean Catch 01/29/18 19:41 Nasal Screen MRSA/MSSA - Preliminary Nasal Swab Assessment and Plan Assessment: Assessment: Acute coronary syndrome, has been evaluated currently for CABG Current smoker with a 26 pack years Hypertensive Obesity Leukocytosis, mostly reactive. No need for antibiotics for now. Plan: This is a pleasant 42 years old male who presents because of [place]. Cardiology and Cardiothoracic surgery following the patient. Patient is scheduled for CABG tomorrow. Patient was started on aspirin, heparin drip, statin, which will be continued. Pain management. Continue with symptomatic treatment. Monitor lytes and vitals. DVT and GI prophylaxis. Further recommendationsof the clinical course of the patient DVT prophylaxis: heparin GI Prophylaxis: Pepcid Prognosis is guarded
[2018-01-30 15:27] LABS: Hemoglobin A1C 6.3 % (4.0-6.0)
--- NOTE | 2018-01-30 15:35 | P.PN ---
Subjective Progress Note Date: 01/30/18 Principal diagnosis: Multivessel coronary artery disease, hypertension, anxiety, history of coronary artery disease with stent placement to his left anterior descending coronary artery in 2006, obesity with a BMI of 33.0 kg/m, preoperative chronic leukocytosis as high as 20.6 and nicotine dependence. The patient is sitting up to the bedside edge. He is in no acute distress. He denies any further complaints of chest pain or shortness of breath at this time. He continues on heparin drip per protocol. Cardiac rehab has evaluated the patient and completed a 5 m walk test with the patient. His questions have been answered to the best of my ability regarding his myocardial revascularization surgery tomorrow 01/31/2018. Objective - Vital Signs Vital signs: Vital Signs Temp 98.9 F 01/30/18 08:00 Pulse 87 01/30/18 08:00 Resp 16 01/30/18 08:00 BP 131/66 01/30/18 08:00 Pulse Ox 94 L 01/30/18 08:00 Intake & Output 01/29/18 01/30/18 01/30/18 18:59 06:59 18:59 Intake Total 368.839 802.703 240 Output Total 800 Balance 368.839 2.703 240 Weight 102.1 kg Intake: IV 50 Intake, IV Titration 318.839 802.703 Amount Heparin Sod,Pork in 0.45% 118.839 NaCl 25,000 unit In 0.45 % NaCl 1 500ml.bag @ 20 mls/hr IV .Q24H [facility] Rx#: [id number] Heparin Sod,Pork in 0.45% 102.703 NaCl 25,000 unit In 0.45 % NaCl 1 500ml.bag @ 9. 586 UNITS/KG/HR 20 mls/hr IV .Q24H [facility] Rx#: [id number] Sodium Chloride 0.9% 1, 700 000 ml @ 100 mls/hr IV . Q10H [facility] Rx#:[id number] Sodium Chloride 0.9% 1, 200 000 ml In Empty Bag 1 bag @ 1 ML/KG/HR 104.32 mls/ hr IV .Q9H36M ONE Rx#: [id number] Oral 240 Output: Urine 800 Other: Voiding Method Urinal - Constitutional General appearance: Present: cooperative, no acute distress, obese - Respiratory Details: Lung sounds essentially clear throughout, diminished to his bilateral bases. Respirations are symmetrical and nonlabored. Oxygen saturation are 93% on room air. He is achieving 2250 mL on his incentive spirometry. Bedside FEV1 was completed this morning with a predicted value of 50%. - Cardiovascular Details: Regular rhythm and rate. S1 and S2 present, negative for S3, gallop or murmur. No edema present. Remote telemetry showing normal sinus rhythm heart rate 91. Sequential compression devices in place was bilateral lower extremities. - Gastrointestinal Gastrointestinal Comment(s): Abdomen is soft, nontender nondistended. Active bowel sounds all 4 abdominal quadrants. Tolerating oral intake. Passing flatus. No guarding or rigidity. No Organomegaly. - Genitourinary Genitourinary Comment(s): Voiding clear yellow urine. - Integumentary Integumentary Comment(s): Skin is warm and dry. No clubbing or cyanosis present. No rash or abnormal pigmentation present. - Neurologic Neurologic: Present: CNII-XII intact - Musculoskeletal Musculoskeletal: Present: gait normal, strength equal bilaterally - Psychiatric Psychiatric: Present: A&O x's 3, appropriate affect, intact judgment & insight - Allied health notes Allied health notes reviewed: nursing - Labs CBC & Chem 7: 01/30/18 05:40 01/30/18 05:40 Labs: Abnormal Lab Results - Last 24 Hours (Table) 01/29/18 01/29/18 01/29/18 Range/Units 12:00 15:27 15:27 WBC 20.6 H (3.8-10.6) k/uL Neutrophils # (1.3-7.7) k/uL Neutrophils # (Manual) 9.27 H (1.3-7.7) k/uL Lymphocytes # (Manual) 8.65 H (1.0-4.8) k/uL Monocytes # (0-1.0) k/uL Monocytes # (Manual) 1.85 H (0-1.0) k/uL Eosinophils # (Manual) 0.82 H (0-0.7) k/uL APTT 89.9 H (22.0-30.0) sec Glucose (74-99) mg/dL Total Creatine Kinase 230 H (55-170) U/L CK-MB (CK-2) 5.9 H (0.0-2.4) ng/mL Troponin I 0.457 H* (0.000-0.034) ng/mL HDL Cholesterol (40-60) mg/dL TSH (0.465-4.680) mIU/L Ur Specific [place] (1.001-1.035) Urine Ketones (Negative) Crossmatch 01/29/18 01/30/18 01/30/18 Range/Units 23:00 05:40 05:40 WBC 15.1 H (3.8-10.6) k/uL Neutrophils # 8.3 H (1.3-7.7) k/uL Neutrophils # (Manual) (1.3-7.7) k/uL Lymphocytes # (Manual) (1.0-4.8) k/uL Monocytes # 1.1 H (0-1.0) k/uL Monocytes # (Manual) (0-1.0) k/uL Eosinophils # (Manual) (0-0.7) k/uL APTT (22.0-30.0) sec Glucose 110 H (74-99) mg/dL Total Creatine Kinase (55-170) U/L CK-MB (CK-2) (0.0-2.4) ng/mL Troponin I (0.000-0.034) ng/mL HDL Cholesterol 28 L (40-60) mg/dL TSH 6.650 H (0.465-4.680) mIU/L Ur Specific [place] 1.043 H (1.001-1.035) Urine Ketones 1+ H (Negative) Crossmatch 01/30/18 Range/Units 08:39 WBC (3.8-10.6) k/uL Neutrophils # (1.3-7.7) k/uL Neutrophils # (Manual) (1.3-7.7) k/uL Lymphocytes # (Manual) (1.0-4.8) k/uL Monocytes # (0-1.0) k/uL Monocytes # (Manual) (0-1.0) k/uL Eosinophils # (Manual) (0-0.7) k/uL APTT (22.0-30.0) sec Glucose (74-99) mg/dL Total Creatine Kinase (55-170) U/L CK-MB (CK-2) (0.0-2.4) ng/mL Troponin I (0.000-0.034) ng/mL HDL Cholesterol (40-60) mg/dL TSH (0.465-4.680) mIU/L Ur Specific [place] (1.001-1.035) Urine Ketones (Negative) Crossmatch See Detail Microbiology - Last 24 Hours (Table) 01/29/18 23:00 Urine Culture - Preliminary Urine,Clean Catch 01/29/18 19:41 Nasal Screen MRSA/MSSA - Preliminary Nasal Swab - Imaging and Cardiology Chest x-ray: report reviewed, image reviewed Carotid duplex results reviewed. Assessment and Plan (1) Non-STEMI (non-ST elevated myocardial infarction) Current Visit: Yes Status: Acute Code(s): I21.4 - NON-ST ELEVATION (NSTEMI) MYOCARDIAL INFARCTION SNOMED Code(s): 441286020 (2) Hypertension Current Visit: Yes Status: Acute Code(s): I10 - ESSENTIAL (PRIMARY) HYPERTENSION SNOMED Code(s): 32053008 (3) Anxiety Current Visit: Yes Status: Acute Code(s): F41.9 - ANXIETY DISORDER, UNSPECIFIED SNOMED Code(s): 35139266 (4) Obesity (BMI 30.0-34.9) Current Visit: Yes Status: Acute Code(s): E66.9 - OBESITY, UNSPECIFIED SNOMED Code(s): 252584003406790 (5) Nicotine dependence Current Visit: Yes Status: Acute Code(s): F17.200 - NICOTINE DEPENDENCE, UNSPECIFIED, UNCOMPLICATED SNOMED Code(s): 12367648 (6) Coronary artery disease Current Visit: Yes Status: Acute Code(s): I25.10 - ATHSCL HEART DISEASE OF [place] CORONARY ARTERY W/O ANG PCTRS SNOMED Code(s): 20199171 Plan: 1. Continue to optimize his medical management, continue aspirin, statin, beta genna and heparin drip. 2. He will be scheduled for urgent myocardial revascularization surgery to be performed by Dr. Low Green tomorrow 01/31/2018. 3. His STS risk score has been calculated and has been discussed with the patient by Dr. Green. 4. A 5 m walk test has been completed by cardiac rehab, time 1: 6.10 seconds, time 2: 5.65 seconds, time 3:5.55 seconds. 5. Hematology oncology has been consulted due to his chronic leukocytosis. 6. Encourage use of his incentive spirometry every hour while awake. 7. Reinforced the importance of smoking cessation. 8. Continue preoperative teaching. 9. More recommendations to follow based on patient's clinical course. Time with Patient: Greater than 30
[2018-01-30] MEDS: NICOTINE 14MG/24HR PATCH TRANSDERM SCH (19:29)
[2018-01-30] MEDS: SODIUM CHLORIDE 0.9% 1,000 ML in EMPTY BAG 1 BAG IV ONE (20:28)
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
[2018-01-30] MEDS: HEPARIN SOD,PORK IN 0.45% NACL 25,000 UNIT in 0.45% NACL 1 500ML.BAG IV SCH (23:33)
[2018-01-31] MEDS ORDERED: CLEVIDIPINE BUTYRATE 25 MG in EMPTY BAG 1 BAG IV ONE (05:00)
[2018-01-31] MEDS ORDERED: ALBUMIN HUMAN 5% 500 ML in EMPTY BAG 1 BAG IVPB ONE ×6 (05:00)
[2018-01-31] MEDS ORDERED: ALBUMIN HUMAN 25% 50 ML in EMPTY BAG 1 BAG IVPB ONE (05:00)
[2018-01-31] MEDS ORDERED: NITROGLYCERIN-D5W PMX 25 MG/250 ML BTL IV ONE (05:00)
[2018-01-31] MEDS ORDERED: ASPIRIN 325 MG TAB PO ONE (05:00)
[2018-01-31] MEDS ORDERED: MAGNESIUM SULFATE SYG 4.06 MEQ/ML SYRINGE IV ONE (05:00)
[2018-01-31] MEDS ORDERED: PROTAMINE SULFATE 10 MG/ML 25 ML VIAL IV ONE (05:00)
[2018-01-31] MEDS ORDERED: NOREPINEPHRINE 4 MG in SODIUM CHLORIDE 0.9% 250 ML IV SCH (05:00)
[2018-01-31] MEDS ORDERED: HEPARIN SODIUM,PORCINE 5,000 UNIT in SODIUM CHLORIDE 0.9% 500 ML 500 ML IV ONE (05:00)
[2018-01-31] MEDS ORDERED: ceFAZolin 2 GM in SODIUM CHLORIDE 0.9% 30 ML IVPB ONE (05:00)
[2018-01-31] MEDS ORDERED: HEPARIN SODIUM 1,000 UN/ML (10ML VL) IV ONE (05:00)
[2018-01-31] MEDS ORDERED: DEXTROSE 5% IN WATER 1,000 ML with POTASSIUM CHLORIDE 25 MEQ, SODIUM CHLORIDE 2.5MEQ/ML... IV SCH ×6 (05:00)
[2018-01-31] MEDS ORDERED: PROPOFOL 1,000 MG in EMPTY BAG 1 BAG IV ONE (05:00)
[2018-01-31] MEDS ORDERED: PAPAVERINE 360 MG in SODIUM CHLORIDE 0.9% 90 ML IV ONE (05:00)
[2018-01-31] MEDS ORDERED: CALCIUM CHLORIDE 100 MG/ML 10 ML SYRINGE IVP ONE (05:00)
[2018-01-31] MEDS ORDERED: PHENYLEPHRINE 40 MG in SODIUM CHLORIDE 0.9% 250 ML IV ONE (05:00)
[2018-01-31] MEDS ORDERED: SODIUM BICARB 8.4% 50 ML SYR (1 MEQ/ML) IV ONE (05:00)
[2018-01-31] MEDS ORDERED: ceFAZolin 1,000 MG in SODIUM CHLORIDE 0.9% IRRIGATIO 1,000 ML IRRIGATION ONE (05:00)
[2018-01-31] MEDS ORDERED: TRANEXAMIC ACID 2,000 MG in SODIUM CHLORIDE 0.9% 180 ML IV ONE (05:00)
[2018-01-31] MEDS ORDERED: DEXTROSE 5% IN WATER 1,000 ML with POTASSIUM CHLORIDE 110 MEQ, MAGNESIUM SULFATE 16 MEQ... IV SCH ×5 (05:00)
[2018-01-31] MEDS ORDERED: ceFAZolin 2,000 MG in SODIUM CHLORIDE 0.9% 30 ML IVPB ONE (05:00)
[2018-01-31] MEDS ORDERED: CHLORHEXIDINE GLUCONATE 15 ML CUP MUCOUS MEM ONE (05:00)
[2018-01-31] MEDS ORDERED: METOPROLOL TARTRATE 12.5 MG TAB PO ONE (05:00)
[2018-01-31] MEDS ORDERED: NITROGLYCERIN-D5W PMX 50 MG in DEXTROSE/WATER 1 250ML.BAG IV ONE (05:00)
[2018-01-31] MEDS ORDERED: PROTAMINE SULFATE 250 MG in EMPTY BAG 1 BAG IV ONE (05:00)
[2018-01-31] MEDS ORDERED: PHENYLEPHRINE-0.9% NACL SYG 1 MG/10 ML SYRINGE IV ONE ×4 (05:00)
[2018-01-31] MEDS ORDERED: ATORVASTATIN 10 MG TAB PO ONE (05:00)
[2018-01-31] MEDS ORDERED: INSULIN REGULAR 100 UNIT in SODIUM CHLORIDE 0.9% 100 ML IV ONE (05:00)
[2018-01-31 06:11] LABS: Basophils # (A) 0.1 k/uL (0-0.2); Basophils % (A) 1 %; Eosinophils # (A) 0.5 k/uL (0-0.7); Eosinophils % (A) 3 %; HCT 47.6 % (39.0-53.0); HGB 15.8 gm/dL (13.0-17.5); Lymphocytes % (A) 33 %; MCHC 33.1 g/dL (31.0-37.0); MCV 93.6 fL (80.0-100.0); Mean Platelet Volume 7.7; Monocytes # (A) 1.3 k/uL (0-1.0); Monocytes % (A) 7 %; Neutrophils # (A) 9.7 k/uL (1.3-7.7); Neutrophils % (A) 54 %; Platelet Count 388 k/uL (150-450); RBC 5.09 m/uL (4.30-5.90); RDW 12.9 % (11.5-15.5); WBC 18.1 k/uL (3.8-10.6)
[2018-01-31 06:32] LABS: ALT 46 U/L (21-72); AST 22 U/L (17-59); Albumin 4.1 g/dL (3.5-5.0); Alkaline Phosphatase 42 U/L (38-126); Anion Gap 10 mmol/L; Blood Urea Nitrogen 9 mg/dL (9-20); Calcium 10.1 mg/dL (8.4-10.2); Carbon Dioxide 21 mmol/L (22-30); Chloride 108 mmol/L (98-107); Glucose 102 mg/dL (74-99); Potassium 4.6 mmol/L (3.5-5.1); Sodium 139 mmol/L (137-145); Total Bilirubin 0.6 mg/dL (0.2-1.3); Total Protein 7.2 g/dL (6.3-8.2)
[2018-01-31] MEDS ORDERED: VECURONIUM 10 MG VIAL IV ONE (08:11)
[2018-01-31] MEDS ORDERED: POTASSIUM CHLORIDE OPEN HEART 20 MEQ/50 ML BAG IVPB ONE (08:11)
[2018-01-31] MEDS ORDERED: SODIUM CHLORIDE 0.9% IRRIG 1,000 ML BTL IRRIGATION ONE (08:11)
[2018-01-31] MEDS ORDERED: SODIUM CHLORIDE 0.9% 250 ML BAG ONE (08:11)
[2018-01-31] MEDS ORDERED: WATER FOR INJECTION, STERILE 10 ML VIAL IV ONE (08:11)
[2018-01-31] MEDS ORDERED: SUFentanil 50 MCG/ML 2ML AMP ONE (08:11)
[2018-01-31] MEDS ORDERED: SODIUM BICARB 8.4% 50 ML SYR (1 MEQ/ML) ONE (08:11)
[2018-01-31] MEDS ORDERED: HEPARIN SODIUM,PORCINE 10,000 UNIT/ML 1 ML VIAL ONE (08:11)
[2018-01-31] MEDS ORDERED: fentaNYL (PF) 50 MCG/ML 50 ML VIAL ONE (08:11)
[2018-01-31] MEDS ORDERED: PROPOFOL 10 MG/ML 20 ML VIAL IV ONE (08:11)
[2018-01-31] MEDS ORDERED: PROTAMINE SULFATE 10 MG/ML 5 ML VIAL IV ONE (08:11)
[2018-01-31] MEDS ORDERED: MAGNESIUM SULFATE 4 MEQ/ML 10ML VIAL ONE (08:11)
[2018-01-31] MEDS ORDERED: MIDAZOLAM 2 MG/2 ML VIAL ONE (08:11)
[2018-01-31] MEDS ORDERED: METOPROLOL TARTRATE 5 MG/5 ML VIAL IVP ONE (08:11)
[2018-01-31] MEDS ORDERED: TRANEXAMIC ACID 1,000 MG/10 ML VIAL ONE (08:11)
[2018-01-31] MEDS ORDERED: ALBUMIN HUMAN 5% 500 ML VIAL IVPB ONE (08:11)
[2018-01-31] MEDS ORDERED: fentaNYL (PF) 50 MCG/ML 2 ML AMP ONE (08:11)
[2018-01-31] MEDS ORDERED: ELECTROLYTE-R (PH 7.4) 1,000 ML IV.SOLN IV ONE (08:11)
[2018-01-31] MEDS ORDERED: DILTIAZEM 5 MG/1 ML (25ML VIAL) IV ONE (08:11)
[2018-01-31 08:59] LABS: ABG Base Excess -0.5 mmol/L; ABG HCO3 25 mmol/L (21-25); ABG PCO2 42 mmHg (35-45); ABG PH 7.38 (7.35-7.45); ABG PO2 95 mmHg (83-108); ABG Sodium Whole Blood 140 mmol/L (135-146); ABG TCO2 26 mmol/L (19-24)
[2018-01-31 10:00] LABS: ABG Base Excess -1.2 mmol/L; ABG HCO3 24 mmol/L (21-25); ABG Oxygen Saturation 96.8 % (94-97); ABG PCO2 43 mmHg (35-45); ABG PH 7.36 (7.35-7.45); ABG PO2 91 mmHg (83-108); ABG Potassium Whole Blood 4.2 mmol/L (3.4-4.5); ABG Sodium Whole Blood 139 mmol/L (135-146); ABG TCO2 26 mmol/L (19-24)
[2018-01-31] MEDS ORDERED: DILTIAZEM 50 MG in SODIUM CHLORIDE 0.9% 40 ML IV ONE (11:00)
[2018-01-31 11:04] LABS: ABG Base Excess -2.4 mmol/L; ABG HCO3 23 mmol/L (21-25); ABG Oxygen Saturation 98.6 % (94-97); ABG PCO2 43 mmHg (35-45); ABG PH 7.34 (7.35-7.45); ABG PO2 126 mmHg (83-108); ABG Potassium Whole Blood 4.1 mmol/L (3.4-4.5); ABG Sodium Whole Blood 140 mmol/L (135-146); ABG TCO2 25 mmol/L (19-24)
[2018-01-31 11:37] LABS: Iron Saturation 16.14 (15.00-50.00)
[2018-01-31 11:54] LABS: Folate, Serum 10.3 ng/mL
[2018-01-31 12:04] LABS: ABG Base Excess -3.4 mmol/L; ABG HCO3 23 mmol/L (21-25); ABG Oxygen Saturation 99.4 % (94-97); ABG PCO2 43 mmHg (35-45); ABG PH 7.33 (7.35-7.45); ABG PO2 198 mmHg (83-108); ABG Potassium Whole Blood 3.9 mmol/L (3.4-4.5); ABG Sodium Whole Blood 140 mmol/L (135-146); ABG TCO2 24 mmol/L (19-24)
[2018-01-31 12:36] LABS: ABG Base Excess -1.2 mmol/L; ABG HCO3 25 mmol/L (21-25); ABG Oxygen Saturation 98.8 % (94-97); ABG PCO2 45 mmHg (35-45); ABG PH 7.35 (7.35-7.45); ABG PO2 131 mmHg (83-108); ABG Potassium Whole Blood 4.5 mmol/L (3.4-4.5); ABG Sodium Whole Blood 142 mmol/L (135-146); ABG TCO2 26 mmol/L (19-24)
[2018-01-31 13:23] LABS: ABG Base Excess -1.3 mmol/L; ABG HCO3 24 mmol/L (21-25); ABG Oxygen Saturation 98.4 % (94-97); ABG PCO2 43 mmHg (35-45); ABG PH 7.36 (7.35-7.45); ABG PO2 120 mmHg (83-108); ABG Potassium Whole Blood 4.2 mmol/L (3.4-4.5); ABG Sodium Whole Blood 143 mmol/L (135-146); ABG TCO2 26 mmol/L (19-24)
[2018-01-31] MEDS: NITROGLYCERIN-D5W PMX 50 MG in DEXTROSE/WATER 1 250ML.BAG IV SCH (14:30)
[2018-01-31] MEDS ORDERED: Magnesium Replacement Protocol 1 EACH MISC MISCELLANE PRN (14:37)
[2018-01-31] MEDS ORDERED: Phosphorus Replacement Protoco 1 EACH MISC MISCELLANE PRN (14:37)
[2018-01-31] MEDS ORDERED: IPRATROPIUM-ALBUTEROL 3 ML NEB INHALATION PRN (14:37)
[2018-01-31] MEDS ORDERED: ONDANSETRON 4 MG/2 ML VIAL IVP PRN (14:37)
[2018-01-31] MEDS ORDERED: DEXTROSE 5% IN WATER 100 ML with AMIODARONE 150 MG IV PRN (14:37)
[2018-01-31] MEDS ORDERED: AMIODARONE 450 MG in DEXTROSE 5% IN WATER 250 ML IV PRN ×2 (14:37)
[2018-01-31] MEDS ORDERED: METOCLOPRAMIDE 5 MG/ML 2 ML VIAL IVP PRN (14:37)
[2018-01-31] MEDS ORDERED: BENZOCAINE/MENTHOL LOZENG 1 EACH LOZENGE MUCOUS MEM PRN (14:37)
[2018-01-31] MEDS ORDERED: ALBUMIN HUMAN 5% 250 ML in EMPTY BAG 1 BAG IVPB PRN (14:37)
[2018-01-31] MEDS ORDERED: CALCIUM CHLORIDE 1,000 MG in SODIUM CHLORIDE 0.9% 100 ML IV PRN (14:37)
[2018-01-31] MEDS ORDERED: Potassium Replacement Protocol 1 EACH MISC MISCELLANE PRN (14:37)
[2018-01-31 14:45] LABS: Glucose,Whole Blood 110 mg/dL (75-99)
[2018-01-31 14:57] LABS: Basophils # (A) 0.1 k/uL (0-0.2); Basophils % (A) 1 %; Eosinophils # (A) 0.3 k/uL (0-0.7); Eosinophils % (A) 2 %; Lymphocytes # (A) 5.8 k/uL (1.0-4.8); Lymphocytes % (A) 28 %; MCHC 33.4 g/dL (31.0-37.0); MCV 95.7 fL (80.0-100.0); Mean Platelet Volume 6.9; Monocytes # (A) 0.5 k/uL (0-1.0); Monocytes % (A) 3 %; Neutrophils # (A) 13.5 k/uL (1.3-7.7); Neutrophils % (A) 66 %; Platelet Count 208 k/uL (150-450); RBC 3.55 m/uL (4.30-5.90); RDW 13.1 % (11.5-15.5); WBC 20.5 k/uL (3.8-10.6)
[2018-01-31 14:58] LABS: HGB 11.4 gm/dL (13.0-17.5)
[2018-01-31] MEDS: NICOTINE 14MG/24HR PATCH TRANSDERM SCH (14:58)
[2018-01-31] MEDS ORDERED: ASPIRIN 300 MG SUPP RECTAL ONE (15:00)
[2018-01-31] MEDS: LACTATED RINGERS 1,000 ML IV SCH (15:01)
[2018-01-31 15:05] LABS: Ionized Calcium 4.9 mg/dL (4.5-5.3)
[2018-01-31 15:05] LABS: ABG Base Excess -1.2 mmol/L; ABG HCO3 25 mmol/L (21-25); ABG Oxygen Saturation 88.6 % (94-97); ABG PCO2 51 mmHg (35-45); ABG PH 7.31 (7.35-7.45); ABG PO2 61 mmHg (83-108); ABG TCO2 27 mmol/L (19-24)
[2018-01-31 15:07] LABS: INR 1.3 (<1.2); Partial Thromboplastin Time 30.8 sec (22.0-30.0); Prothrombin Time 12.7 sec (9.0-12.0)
[2018-01-31] MEDS: CLEVIDIPINE BUTYRATE 25 MG in EMPTY BAG 1 BAG IV SCH ×6 (15:07→23:48)
[2018-01-31] MEDS: PROPOFOL 1,000 MG in EMPTY BAG 1 BAG IV SCH ×4 (15:07→22:27)
[2018-01-31] MEDS ORDERED: MORPHINE SULFATE 4 MG/ML SYRINGE IM STA (15:10)
[2018-01-31 15:13] LABS: ALT 115 U/L (21-72); AST 184 U/L (17-59); Albumin 3.5 g/dL (3.5-5.0); Alkaline Phosphatase <20 U/L (38-126); Anion Gap 7 mmol/L; Blood Urea Nitrogen 8 mg/dL (9-20); Calcium 8.1 mg/dL (8.4-10.2); Carbon Dioxide 24 mmol/L (22-30); Chloride 111 mmol/L (98-107); Glucose 110 mg/dL (74-99); Magnesium 1.9 mg/dL (1.6-2.3); Potassium 4.2 mmol/L (3.5-5.1); Sodium 142 mmol/L (137-145); Total Bilirubin 1.1 mg/dL (0.2-1.3); Total Protein 5.3 g/dL (6.3-8.2)
[2018-01-31 15:13] LABS: Glucose,Whole Blood 112 mg/dL (75-99)
--- NOTE | 2018-01-31 15:35 | XR ---
EXAMINATION TYPE: XR chest 1V portable DATE OF EXAM: 01/31/2018 COMPARISON: Prior chest x-ray 01/29/2018 HISTORY: Postop cardiac surgery, intubated TECHNIQUE: Single frontal view of the chest is obtained. FINDINGS: Patient is post median sternotomy. Endotracheal tube and NG tube are in place, side-port o f the NG tube is near the level of the gastroesophageal junction. Right jugular central venous sheath with coaxial [place]-Velasquez catheter is in place with the tip over the pulmonary artery. Left chest tube is noted. No evident pneumothorax. There is subcutaneous emphysema. Lung volumes are low. Interstitiu m mildly increased. Retrocardiac density is noted. Additional drainage tube noted over the region of the left heart. IMPRESSION: Expiratory exam, there may be a component of volume overload. Tubes and line as describe juan antonio
[2018-01-31] MEDS: DILTIAZEM 50 MG in SODIUM CHLORIDE 0.9% 40 ML IV SCH (15:59)
--- NOTE | 2018-01-31 16:05 | OP ---
OPERATIVE REPORT DATE OF SURGERY: 01/31/2018. SURGEON: Dr. Low Green. SECURITY COMPLIANCE SPECIALIST: Rene BARNHART and Jono Garcia, Nurse practitioner. PREOPERATIVE DIAGNOSES: Coronary artery disease with non ST elevation myocardial infarction, remote prior stent to his LAD, totally occluded right coronary artery, preserved left ventricular function, hypertension, anxiety, tobacco abuse. POSTOPERATIVE DIAGNOSES: Coronary artery disease with non ST elevation myocardial infarction, remote prior stent to his LAD, totally occluded right coronary artery, preserved left ventricular function, hypertension, anxiety, tobacco abuse. PROCEDURE PERFORMED: 1. Total arterial off pump double coronary artery bypass grafting using the left internal mammary artery to the left anterior descending artery, the left radial artery taken as a Y-graft from the left internal mammary artery and anastomosed distally to the right coronary artery. 2. Endoscopic harvesting of the left radial artery. 3. Intraoperative transesophageal echocardiogram and epiaortic scanning. 4. Intraoperative graft flow measurements using the Mesh [place]-Stim system. INDICATIONS FOR SURGERY: Patient is a 42-year-old gentleman who had more than 10 years ago stent to LAD. The patient has not been compliant with medication and continued to smoke. He presented with chest pain and non-ST elevation myocardial infarction. Cardiac catheterization showed a complex in-stent restenosis as well as a totally occluded collateralized right coronary artery. Discussion followed and decision was made to proceed with surgical revascularization in view of the long-term benefit. The FTF risk was discussed with him. He understood it and agreed to proceed. DESCRIPTION OF THE PROCEDURE: The patient in supine position. The right internal jugular [place]-Velasquez catheter and a right radial arterial line were placed. He had normal PA pressure and good cardiac index. Subsequently general endotracheal anesthesia was induced uneventfully. Ferro catheter was inserted. The patient received 2 g of cefazolin intravenously. The chest, abdomen and both lower extremity and left upper extremity were prepped and draped using ChloraPrep. Ioban was used to cover the skin. Transesophageal echocardiogram confirmed the preoperative finding of preserved left ventricular function and no significant valvular abnormality. A midline sternotomy was performed and no bone wax was used. The bone was quite dense. The left hemisternum was elevated and the left internal mammary artery was harvested in a semi-skeletonized fashion. The left pleura was intentionally opened in this process and was drained with a 19-Bulgarian Franko drain. I made a small opening into the right pleura at the end of the case, and I did not drain the right pleural. In the same setting, the left radial artery was harvested endoscopically after initial clamping trial at the level of the wrist that showed preserved pulsatile O2 signal at the level of the left index O2 saturation probe. The left forearm incision was closed over a drain. The radial artery was prepared by incising the fascia all along with the volar aspect and clipping all the branches. It was of large caliber however showing segmental spastic reaction and we added Cardizem IV to the IV nitroglycerin strategy that we usually adopt for radial artery spasm prevention. Mediastinal fat was transected between 2 ties and epiaortic scanning revealed some concentric intimal thickening but no protruding atheroma in the ascending aorta. Pericardium was opened in an inverted T-fashion and a pericardial cradle was created. Findings included normal soft aorta with what seems to be thick adventitia over it and a normal size heart. The mammary artery was double clipped distally and transected after administration of 5000 units of heparin. It had an excellent pulsatile flow. It was around 2 mm in diameter and was prepared. The acrobat system along with the exposed device was used to perform the surgery on a beating heart. The 1st distal anastomosis was between the left internal mammary artery and the mid to distal aspect of the left anterior descending artery, which came out of a deep myocardial course and emerged after the takeoff of the last diagonal artery. It was around 2 mm at that level and accepted 1.75 mm shunt and the anastomosis was completed using Prolene 7-0 in continuous fashion. The shunt was removed before completing the anastomosis, which was very well tolerated. Graft flow measurements at this point revealed excellent flow into the left internal mammary artery with very low pulsatility index and high diastolic filling. Subsequently, the inferior wall was exposed and the posterior descending artery appeared to be a small vessel and decision was made to tackle the main right coronary artery. That artery was diffusely thickened, but I picked a soft spot after the acute margin of the heart for potential bypass. I elected at this point to connect the left radial artery to the ascending aorta. For that reason, a heartstring device was used and after making the hole in the aorta and deploying the heart string device, there was profuse bleeding still noted with the aorta turning purple. Fearing dissection at that level, the device was removed and we obtained a ANGI and epiaortic scanning revealed that there was no dissection of the aorta but blood that found its way under the thick adventitia. Attempt at deploying another heartstring failed as the cup did not hold probably in view of the hole at this point being larger than the device. For that reason, the pressure was brought down to around 50 mean and I applied a partial occluding clamp at that level. That hole appeared to be not amenable to an anastomosis and I over sewed it with several pledgeted Prolene 3-0 with adequate control. I did not want to touch the aorta at this point. For that reason, I proceeded anastomosing the left radial artery to the right coronary artery around 2 cm beyond the acute margin of the heart. The right coronary artery was opened, had some retrograde flow in it, but I did not use the shunt and the anastomosis was performed using Prolene 7-0 in continuous fashion. There was backflow of blood from the proximal end of the radial artery showing patent anastomosis. At this point, I elected to take inflow for the radial artery from the left internal mammary artery. Two bulldog clamps were applied at an area at the level of the left pericardial fraction and the radial artery to the left internal mammary artery anastomosis was completed using Prolene 7-0 in a continuous fashion. Initially, the anastomosis was backflushed from the radial artery and the mammary artery before releasing the proximal bulldog on the left internal mammary artery. That anastomosis was hemostatic. Flow measurements at this point revealed preserved excellent flow into the left internal mammary artery. The flow into the radial artery to the right coronary artery was 38 mL/minute, pulsatility index of 0.8, diastolic filling of 58% showing excellent functioning graft. The patient had been given heparin throughout the case to keep HCT above 250 seconds. At this point , test dose then half dose protamine was given. Two Franko drain 19-Bulgarian each were placed, one substernally and one in the posterior pericardium. A groove has been made in the left pleura pericardial fat to accommodate the mammary artery medial to the lung and away from the posterior sternal table. There was no distortion of the left internal mammary artery in view of the radial artery anastomosis. There was no tension on the radial artery that crossed anteriorly at the level of the RV and just before the acute margin of the heart. The pericardial fat was approximated over the RV and the graft. However, the most right lateral aspect of the radial artery as it is coming around the acute margin of the heart could not be covered with tissue. After ensuring adequate hemostasis and hemodynamic and after correct sponge, instrument, and needle count, the sternum was closed using 5 [id number] pineal cables after interposing fibular between the sternal edges. Thorough irrigation of cefazolin followed. The rest of the closure proceeded in layers. Skin glue was applied. The patient was transferred to the ICU in excellent stable condition on low-dose Cardizem and nitroglycerin. He did not receive any blood bank product but received 1.5 L of Cell Saver blood. MMODL / IJN: [id number] / MTDD
[2018-01-31 16:28] LABS: Glucose,Whole Blood 122 mg/dL (75-99)
[2018-01-31] MEDS: INSULIN REGULAR 100 UNIT in SODIUM CHLORIDE 0.9% 100 ML IV SCH (16:31)
[2018-01-31 16:53] LABS: ABG Base Excess -0.4 mmol/L; ABG HCO3 25 mmol/L (21-25); ABG Oxygen Saturation 82.4 % (94-97); ABG PCO2 47 mmHg (35-45); ABG PH 7.34 (7.35-7.45); ABG TCO2 27 mmol/L (19-24)
[2018-01-31] MEDS: ACETAMINOPHEN IV (For NPO) 1,000 MG in EMPTY BAG 1 BAG IVPB SCH ×2 (17:19→22:15)
[2018-01-31] MEDS: MAGNESIUM SULFATE-D5W PMX 1 GM in DEXTROSE/WATER 1 100ML.BAG IVPB SCH ×2 (17:19→18:53)
[2018-01-31] MEDS: IPRATROPIUM-ALBUTEROL 3 ML NEB INHALATION SCH ×4 (17:32→20:24)
[2018-01-31] MEDS: MORPHINE SULFATE 2 MG/ML SYRINGE IVP PRN ×2 (17:53→21:36)
[2018-01-31] MEDS: ceFAZolin IN SWFI 2 GM/20 ML SYRINGE IVP SCH (17:54)
[2018-01-31 17:58] LABS: Glucose,Whole Blood 149 mg/dL (75-99)
--- NOTE | 2018-01-31 18:03 | XR ---
EXAMINATION TYPE: XR chest 1V DATE OF EXAM: 01/31/2018 COMPARISON: Prior chest x-ray 01/31/2018 HISTORY: Hypoxemia, low oxygen saturations TECHNIQUE: Single frontal view of the chest is obtained. FINDINGS: Findings are similar to prior exam. Patient is rotated. No evident pneumothorax. IMPRESSION: Correlate to exclude volume overload. There may be lower lobe atelectasis, difficult to exclude small effusion. Rotated exam.
[2018-01-31 18:07] LABS: Basophils # (A) 0.1 k/uL (0-0.2); Basophils % (A) 0 %; Eosinophils # (A) 0.2 k/uL (0-0.7); Eosinophils % (A) 1 %; HCT 37.5 % (39.0-53.0); HGB 12.6 gm/dL (13.0-17.5); Lymphocytes # (A) 2.9 k/uL (1.0-4.8); Lymphocytes % (A) 14 %; MCH 32.1 pg (25.0-35.0); MCHC 33.6 g/dL (31.0-37.0); MCV 95.5 fL (80.0-100.0); Monocytes # (A) 1.1 k/uL (0-1.0); Monocytes % (A) 5 %; Neutrophils # (A) 16.5 k/uL (1.3-7.7); Neutrophils % (A) 79 %; Platelet Count 250 k/uL (150-450); RBC 3.93 m/uL (4.30-5.90); RDW 13.2 % (11.5-15.5); WBC 20.9 k/uL (3.8-10.6)
[2018-01-31] MEDS: fentaNYL (PF) 2,500 MCG in SODIUM CHLORIDE 0.9% 200 ML IV SCH (18:52)
[2018-01-31 19:20] LABS: Glucose,Whole Blood 139 mg/dL (75-99)
--- NOTE | 2018-01-31 19:31 | P.PN ---
Subjective Progress Note Date: 01/31/18 Principal diagnosis: Status post CABG, postoperative day #1. This is a pleasant 42-year-old gentleman who follows with Dr. Bansal as his primary care physician. He has a history of hypertension, anxiety, chronic and ongoing tobacco dependence, coronary artery disease with previous stent placement. He presented here yesterday as a transfer from an outside facility after presenting there with significant chest discomfort. He states he was taking a nap before going into work as he works the third shift approximately 6 PM and awoke to midsternal pressure and significant pain. He was barely able to speak but he was able to call 911 and get to the emergency room. He was found have a non-Q-wave ST segment elevation myocardial infarction. He had subsequent undergone cardiac catheterization which revealed a totally occluded right coronary artery that appeared to be chronically occluded. There is also a complex lesion and in-stent restenosis of the proximal LAD. He was recommended coronary artery bypass surgery which he is agreeable to. The plan is for surgery tomorrow morning. He has been smoking for 26 years. He states he was given inhaler possibly Symbicort in the past but has not used one in quite some time. No rescue inhaler. He is able to do his day-to-day activities without any significant shortness of breath. Preop FEV1 value is 50 % of predicted. His chest x-ray reveals bilateral patchy atelectasis. He has been educated regarding use of the incentive spirometer. He is maintaining good O2 saturations in the low 90s on room air. He's been afebrile. Hemodynamically stable. He remains on a heparin drip. He is currently free of any chest discomfort. Patient was seen postoperatively, he underwent myocardial revascularization today, patient had off pump double coronary artery bypass grafting using NAJERA to LAD, and left radial artery taken as a Y graft from the left internal mammary artery and anastomosis distally to the right coronary artery. Postoperatively patient was sent to the ICU, on mechanical ventilation. However seems to be having issues with oxygenation. Postoperative ABG, showed a pO2 of 50 pCO2 of 47 pH of 7.34. His ventilator settings were adjusted, patient was initially hyperventilated, however no significant change was noted in his O2 saturation, remained in the high 80s and about 90%. Then, repeat chest x-ray showed left lower lobe atelectasis, and mild prominence of the interstitium. Remind you patient had good LV function prior to surgery. Blood pressures seems to be elevated. His PA pressures are also elevated. And his cardiac index is 2.3. Patient was then placed on a lower tidal volume presently on tidal volume of 420, assist control rate of 28, and FiO2 100%, and a PEEP was increased from 10-14. Patient was also placed on higher dose of propofol, and on a fentanyl drip at 50 mcg/h, may even consider placing the patient on Nimbex. Airway mechanics were reviewed, peak airway pressures are in the mid 30s, and plateau pressures around 26-28. Rest of the labs from earlier today were all reviewed. Chest x-ray, ABG were reviewed. Hemodynamic profile was also reviewed. Objective - Vital Signs Vital signs: Vital Signs Temp 97.3 F L 01/31/18 04:55 Pulse 89 01/31/18 19:00 Resp 30 H 01/31/18 19:00 BP 147/86 01/31/18 04:55 Pulse Ox 93 L 01/31/18 19:00 Intake & Output 01/31/18 01/31/18 02/01/18 06:59 18:59 05:59 Intake Total 37.077 857.404 58.959 Output Total 5115 250 Balance 37.077 -4257.596 -191.041 Weight 100.9 kg Intake: IV 103 Cardiac Output 70 Intake, IV Titration 37.077 754.404 58.959 Amount ACETAMINOPHEN IV (For NPO 100 ) 1,000 mg In Empty Bag 1 bag @ 400 mls/hr IVPB Q6H [facility] Rx#:[id number] Clevidipine Butyrate 25 64.600 6.4 mg In Empty Bag 1 bag @ 1 MG/HR 2 mls/hr IV .Q24H [facility] Rx#:[id number] Diltiazem 50 mg In Sodium 14.583 Chloride 0.9% 40 ml @ 5 MG/HR 5 mls/hr IV .Q10H [facility] Rx#:[id number] Heparin Sod,Pork in 0.45% 37.077 NaCl 25,000 unit In 0.45 % NaCl 1 500ml.bag @ 9. 586 UNITS/KG/HR 20 mls/hr IV .Q24H [facility] Rx#: [id number] Insulin Regular 100 unit 0.7 2.559 In Sodium Chloride 0.9% 100 ml @ Per Protocol IV .Q0M [facility] Rx#:[id number] Lactated Ringers 1,000 ml 200 50 @ 50 mls/hr IV .Q20H [facility] Rx#:[id number] Magnesium Sulfate-D5w Pmx 200 1 gm In Dextrose/Water 1 100ml.bag @ 100 mls/hr IVPB Q1H [facility] [place] Rx#: [id number] Propofol 1,000 mg In 114.521 Empty Bag 1 bag @ Titrate IV .Q0M [facility] [place] Rx#: [id number] ceFAZolin 2 gm In Sodium 60 Chloride 0.9% 30 ml @ 60 mls/hr IVPB ONCE ONE Rx#: [id number] Output: Chest Tube Drainage 225 20 bilateral mediastinal 150 10 left pleural 75 10 Drainage 10 left forearm 10 Urine 2380 230 Estimated Blood Loss 2500 Other: Voiding Method Urinal ABP, PAP, CO, CI - Last Documented Arterial Blood Pressure 141/82 Pulmonary Artery Pressure 41/31 Cardiac Output 6.9 Cardiac Index 3.2 - Exam Physical Exam: Revealed a 42-year-old white male in no distress, sedated, on mechanical ventilation. Endotracheal tube and orogastric tube are intact. Head: Atraumatic, normocephalic. HEENT:[Neck is supple.] [No neck masses.] [No thyromegaly.] [No JVD.] PERRLA, EOMI, no icterus. Chest: [Diminished breath sounds at the bases, no crackles or rhonchi or wheezes.] Cardiac Exam: [Normal S1 and S2, no S3 gallop, no murmur.] Abdomen: [Soft, nontender, no megaly, no rebound, no guarding, normal bowel sounds.] Extremities: [No clubbing, no edema, no cyanosis.] Neurological Exam: Fully sedated, cannot be assessed. Psychiatric: Could not be assessed. Lymphatics: No lymphadenopathy. Skin: No rashes. - Labs CBC & Chem 7: 01/31/18 17:50 01/31/18 14:35 Labs: Abnormal Lab Results - Last 24 Hours (Table) 01/30/18 01/30/18 01/30/18 Range/Units 08:39 23:39 23:39 WBC (3.8-10.6) k/uL RBC (4.30-5.90) m/uL Hgb (13.0-17.5) gm/dL Hct (39.0-53.0) % Neutrophils # (1.3-7.7) k/uL Lymphocytes # (1.0-4.8) k/uL Monocytes # (0-1.0) k/uL PT (9.0-12.0) sec INR (<1.2) APTT 30.4 H (22.0-30.0) sec ABG pH (7.35-7.45) ABG pCO2 (35-45) mmHg ABG pO2 (83-108) mmHg ABG Total CO2 (19-24) mmol/L ABG O2 Saturation (94-97) % ABG Hematocrit (34.0-46.0) % ABG Ionized Calcium (4.5-5.3) mg/dL ABG Glucose (75-99) mg/dL Hemoglobin (13.0-17.5) gm/dL Chloride (98-107) mmol/L Carbon Dioxide (22-30) mmol/L BUN (9-20) mg/dL Glucose (74-99) mg/dL POC Glucose (mg/dL) (75-99) mg/dL Calcium (8.4-10.2) mg/dL Iron (65-175) ug/dL Ferritin (22.0-322.0) ng/mL AST (17-59) U/L ALT (21-72) U/L Alkaline Phosphatase (38-126) U/L C-Reactive Protein 43.0 H (<10.0) mg/L Total Protein (6.3-8.2) g/dL Arterial Blood Glucose (75-99) mg/dL Crossmatch See Detail 01/30/18 01/31/18 01/31/18 Range/Units 23:39 05:32 05:32 WBC 18.1 H (3.8-10.6) k/uL RBC (4.30-5.90) m/uL Hgb (13.0-17.5) gm/dL Hct (39.0-53.0) % Neutrophils # 9.7 H (1.3-7.7) k/uL Lymphocytes # 6.0 H (1.0-4.8) k/uL Monocytes # 1.3 H (0-1.0) k/uL PT (9.0-12.0) sec INR (<1.2) APTT (22.0-30.0) sec ABG pH (7.35-7.45) ABG pCO2 (35-45) mmHg ABG pO2 (83-108) mmHg ABG Total CO2 (19-24) mmol/L ABG O2 Saturation (94-97) % ABG Hematocrit (34.0-46.0) % ABG Ionized Calcium (4.5-5.3) mg/dL ABG Glucose (75-99) mg/dL Hemoglobin (13.0-17.5) gm/dL Chloride 108 H (98-107) mmol/L Carbon Dioxide 21 L (22-30) mmol/L BUN (9-20) mg/dL Glucose 102 H (74-99) mg/dL POC Glucose (mg/dL) (75-99) mg/dL Calcium (8.4-10.2) mg/dL Iron 46 L (65-175) ug/dL Ferritin 358.4 H (22.0-322.0) ng/mL AST (17-59) U/L ALT (21-72) U/L Alkaline Phosphatase (38-126) U/L C-Reactive Protein (<10.0) mg/L Total Protein (6.3-8.2) g/dL Arterial Blood Glucose (75-99) mg/dL Crossmatch 01/31/18 01/31/18 01/31/18 Range/Units 09:03 10:04 11:08 WBC (3.8-10.6) k/uL RBC (4.30-5.90) m/uL Hgb (13.0-17.5) gm/dL Hct (39.0-53.0) % Neutrophils # (1.3-7.7) k/uL Lymphocytes # (1.0-4.8) k/uL Monocytes # (0-1.0) k/uL PT (9.0-12.0) sec INR (<1.2) APTT (22.0-30.0) sec ABG pH 7.34 L (7.35-7.45) ABG pCO2 (35-45) mmHg ABG pO2 126 H (83-108) mmHg ABG Total CO2 26 H 26 H 25 H (19-24) mmol/L ABG O2 Saturation 98.6 H (94-97) % ABG Hematocrit (34.0-46.0) % ABG Ionized Calcium (4.5-5.3) mg/dL ABG Glucose 109 H 109 H (75-99) mg/dL Hemoglobin (13.0-17.5) gm/dL Chloride (98-107) mmol/L Carbon Dioxide (22-30) mmol/L BUN (9-20) mg/dL Glucose (74-99) mg/dL POC Glucose (mg/dL) (75-99) mg/dL Calcium (8.4-10.2) mg/dL Iron (65-175) ug/dL Ferritin (22.0-322.0) ng/mL AST (17-59) U/L ALT (21-72) U/L Alkaline Phosphatase (38-126) U/L C-Reactive Protein (<10.0) mg/L Total Protein (6.3-8.2) g/dL Arterial Blood Glucose 109 H 109 H (75-99) mg/dL Crossmatch 01/31/18 01/31/18 01/31/18 Range/Units 12:08 12:40 13:27 WBC (3.8-10.6) k/uL RBC (4.30-5.90) m/uL Hgb (13.0-17.5) gm/dL Hct (39.0-53.0) % Neutrophils # (1.3-7.7) k/uL Lymphocytes # (1.0-4.8) k/uL Monocytes # (0-1.0) k/uL PT (9.0-12.0) sec INR (<1.2) APTT (22.0-30.0) sec ABG pH 7.33 L (7.35-7.45) ABG pCO2 (35-45) mmHg ABG pO2 198 H 131 H 120 H (83-108) mmHg ABG Total CO2 26 H 26 H (19-24) mmol/L ABG O2 Saturation 99.4 H 98.8 H 98.4 H (94-97) % ABG Hematocrit 32 L (34.0-46.0) % ABG Ionized Calcium 4.4 L 4.4 L 4.4 L (4.5-5.3) mg/dL ABG Glucose 103 H 106 H 109 H (75-99) mg/dL Hemoglobin 10.5 L 11.0 L 11.3 L (13.0-17.5) gm/dL Chloride (98-107) mmol/L Carbon Dioxide (22-30) mmol/L BUN (9-20) mg/dL Glucose (74-99) mg/dL POC Glucose (mg/dL) (75-99) mg/dL Calcium (8.4-10.2) mg/dL Iron (65-175) ug/dL Ferritin (22.0-322.0) ng/mL AST (17-59) U/L ALT (21-72) U/L Alkaline Phosphatase (38-126) U/L C-Reactive Protein (<10.0) mg/L Total Protein (6.3-8.2) g/dL Arterial Blood Glucose 103 H 106 H 109 H (75-99) mg/dL Crossmatch 01/31/18 01/31/18 01/31/18 Range/Units 14:33 14:35 14:35 WBC 20.5 H (3.8-10.6) k/uL RBC 3.55 L (4.30-5.90) m/uL Hgb 11.4 L D (13.0-17.5) gm/dL Hct 34.0 L (39.0-53.0) % Neutrophils # 13.5 H (1.3-7.7) k/uL Lymphocytes # 5.8 H (1.0-4.8) k/uL Monocytes # (0-1.0) k/uL PT (9.0-12.0) sec INR (<1.2) APTT (22.0-30.0) sec ABG pH (7.35-7.45) ABG pCO2 (35-45) mmHg ABG pO2 (83-108) mmHg ABG Total CO2 (19-24) mmol/L ABG O2 Saturation (94-97) % ABG Hematocrit (34.0-46.0) % ABG Ionized Calcium (4.5-5.3) mg/dL ABG Glucose (75-99) mg/dL Hemoglobin (13.0-17.5) gm/dL Chloride 111 H (98-107) mmol/L Carbon Dioxide (22-30) mmol/L BUN 8 L (9-20) mg/dL Glucose 110 H (74-99) mg/dL POC Glucose (mg/dL) 110 H (75-99) mg/dL Calcium 8.1 L (8.4-10.2) mg/dL Iron (65-175) ug/dL Ferritin (22.0-322.0) ng/mL AST 184 H (17-59) U/L ALT 115 H (21-72) U/L Alkaline Phosphatase <20 L (38-126) U/L C-Reactive Protein (<10.0) mg/L Total Protein 5.3 L (6.3-8.2) g/dL Arterial Blood Glucose (75-99) mg/dL Crossmatch 01/31/18 01/31/18 01/31/18 Range/Units 14:35 14:37 15:02 WBC (3.8-10.6) k/uL RBC (4.30-5.90) m/uL Hgb (13.0-17.5) gm/dL Hct (39.0-53.0) % Neutrophils # (1.3-7.7) k/uL Lymphocytes # (1.0-4.8) k/uL Monocytes # (0-1.0) k/uL PT 12.7 H (9.0-12.0) sec INR 1.3 H (<1.2) APTT 30.8 H (22.0-30.0) sec ABG pH 7.31 L (7.35-7.45) ABG pCO2 51 H (35-45) mmHg ABG pO2 61 L (83-108) mmHg ABG Total CO2 27 H (19-24) mmol/L ABG O2 Saturation 88.6 L (94-97) % ABG Hematocrit (34.0-46.0) % ABG Ionized Calcium (4.5-5.3) mg/dL ABG Glucose (75-99) mg/dL Hemoglobin (13.0-17.5) gm/dL Chloride (98-107) mmol/L Carbon Dioxide (22-30) mmol/L BUN (9-20) mg/dL Glucose (74-99) mg/dL POC Glucose (mg/dL) 112 H (75-99) mg/dL Calcium (8.4-10.2) mg/dL Iron (65-175) ug/dL Ferritin (22.0-322.0) ng/mL AST (17-59) U/L ALT (21-72) U/L Alkaline Phosphatase (38-126) U/L C-Reactive Protein (<10.0) mg/L Total Protein (6.3-8.2) g/dL Arterial Blood Glucose (75-99) mg/dL Crossmatch 01/31/18 01/31/18 01/31/18 Range/Units 16:17 16:51 17:46 WBC (3.8-10.6) k/uL RBC (4.30-5.90) m/uL Hgb (13.0-17.5) gm/dL Hct (39.0-53.0) % Neutrophils # (1.3-7.7) k/uL Lymphocytes # (1.0-4.8) k/uL Monocytes # (0-1.0) k/uL PT (9.0-12.0) sec INR (<1.2) APTT (22.0-30.0) sec ABG pH 7.34 L (7.35-7.45) ABG pCO2 47 H (35-45) mmHg ABG pO2 50 L* (83-108) mmHg ABG Total CO2 27 H (19-24) mmol/L ABG O2 Saturation 82.4 L (94-97) % ABG Hematocrit (34.0-46.0) % ABG Ionized Calcium (4.5-5.3) mg/dL ABG Glucose (75-99) mg/dL Hemoglobin (13.0-17.5) gm/dL Chloride (98-107) mmol/L Carbon Dioxide (22-30) mmol/L BUN (9-20) mg/dL Glucose (74-99) mg/dL POC Glucose (mg/dL) 122 H 149 H (75-99) mg/dL Calcium (8.4-10.2) mg/dL Iron (65-175) ug/dL Ferritin (22.0-322.0) ng/mL AST (17-59) U/L ALT (21-72) U/L Alkaline Phosphatase (38-126) U/L C-Reactive Protein (<10.0) mg/L Total Protein (6.3-8.2) g/dL Arterial Blood Glucose (75-99) mg/dL Crossmatch 01/31/18 01/31/18 Range/Units 17:50 19:09 WBC 20.9 H (3.8-10.6) k/uL RBC 3.93 L (4.30-5.90) m/uL Hgb 12.6 L (13.0-17.5) gm/dL Hct 37.5 L (39.0-53.0) % Neutrophils # 16.5 H (1.3-7.7) k/uL Lymphocytes # (1.0-4.8) k/uL Monocytes # 1.1 H (0-1.0) k/uL PT (9.0-12.0) sec INR (<1.2) APTT (22.0-30.0) sec ABG pH (7.35-7.45) ABG pCO2 (35-45) mmHg ABG pO2 (83-108) mmHg ABG Total CO2 (19-24) mmol/L ABG O2 Saturation (94-97) % ABG Hematocrit (34.0-46.0) % ABG Ionized Calcium (4.5-5.3) mg/dL ABG Glucose (75-99) mg/dL Hemoglobin (13.0-17.5) gm/dL Chloride (98-107) mmol/L Carbon Dioxide (22-30) mmol/L BUN (9-20) mg/dL Glucose (74-99) mg/dL POC Glucose (mg/dL) 139 H (75-99) mg/dL Calcium (8.4-10.2) mg/dL Iron (65-175) ug/dL Ferritin (22.0-322.0) ng/mL AST (17-59) U/L ALT (21-72) U/L Alkaline Phosphatase (38-126) U/L C-Reactive Protein (<10.0) mg/L Total Protein (6.3-8.2) g/dL Arterial Blood Glucose (75-99) mg/dL Crossmatch Microbiology - Last 24 Hours (Table) 01/29/18 23:00 Urine Culture - Preliminary Urine,Clean Catch Gram Neg Bacilli 01/29/18 19:41 Nasal Screen MRSA/MSSA - Final Nasal Swab Assessment and Plan Assessment: Impression: 1 status post CABG, postoperative day #0. 2 unexpected postoperative hypoxic respiratory failure, strongly suspect acute lung injury. ARDS. Hence the patient will be kept on lower tidal volumes, high respiratory rates, higher PEEP, and may even consider paralytic agents. This is unexpected postoperatively. 3 recent acute non-ST segment elevation myocardial infarction 4 history of hypertension 5 tobacco dependence syndrome and underlying COPD 6 obesity 7 history of generalized anxiety disorder. Recommendation: Continue mechanical ventilation, increased sedation, added fentanyl drip, may consider paralytic agents. Lower tidal volume, higher respiratory rate, higher PEEP, and will continue to follow closely. Continue GI and DVT prophylaxis. Prognosis at this point is relatively guarded. The nurse taking care of the patient updated the surgeon on his condition. We'll continue to follow. Critical care time is 35 minutes Time with Patient: Greater than 30
[2018-01-31 19:41] LABS: ABG Base Excess -0.3 mmol/L; ABG HCO3 25 mmol/L (21-25); ABG PCO2 42 mmHg (35-45); ABG PH 7.37 (7.35-7.45); ABG PO2 63 mmHg (83-108); ABG TCO2 26 mmol/L (19-24)
[2018-01-31] MEDS ORDERED: CISATRACURIUM 2 MG/ML 5 ML VIAL IV ONE (20:15)
[2018-01-31 20:20] LABS: Glucose,Whole Blood 141 mg/dL (75-99)
[2018-01-31] MEDS: CISATRACURIUM 200 MG in SODIUM CHLORIDE 0.9% 180 ML IV SCH (20:43)
[2018-01-31 21:15] LABS: Glucose,Whole Blood 128 mg/dL (75-99)
[2018-01-31 21:58] LABS: HCT 37.7 % (39.0-53.0); HGB 12.8 gm/dL (13.0-17.5); MCV 94.1 fL (80.0-100.0); Mean Platelet Volume 7.2; Platelet Count 241 k/uL (150-450); RBC 4.01 m/uL (4.30-5.90); RDW 13.2 % (11.5-15.5); WBC 23.3 k/uL (3.8-10.6)
[2018-01-31 22:06] LABS: Anion Gap 9 mmol/L; Blood Urea Nitrogen 7 mg/dL (9-20); Calcium 8.9 mg/dL (8.4-10.2); Carbon Dioxide 23 mmol/L (22-30); Chloride 109 mmol/L (98-107); Glucose 118 mg/dL (74-99); Magnesium 2.7 mg/dL (1.6-2.3); Potassium 4.4 mmol/L (3.5-5.1); Sodium 141 mmol/L (137-145)
[2018-01-31 22:12] LABS: Glucose,Whole Blood 128 mg/dL (75-99)
[2018-01-31] MEDS: ARTIFICIAL TEARS-HYPROMELLOSE DROPS 15 ML BTL BOTH EYES SCH (22:12)
[2018-01-31] MEDS: HEPARIN SODIUM,PORCINE 5,000 UNIT/ML 1 ML VIAL SQ SCH (22:18)
[2018-01-31] MEDS: METOPROLOL TARTRATE 12.5 MG TAB PO SCH (22:18)
[2018-01-31] MEDS: MUPIROCIN 2% OINT 22 GM TUBE NASAL SCH (22:24)
[2018-01-31 23:00] LABS: Glucose,Whole Blood 123 mg/dL (75-99)
[2018-01-31 23:48] LABS: ABG Base Excess -1.2 mmol/L; ABG HCO3 25 mmol/L (21-25); ABG PCO2 46 mmHg (35-45); ABG PH 7.34 (7.35-7.45); ABG PO2 61 mmHg (83-108); ABG TCO2 26 mmol/L (19-24)
[2018-02-01] MEDS: HEPARIN SODIUM,PORCINE 5,000 UNIT/ML 1 ML VIAL SQ SCH ×4 (00:17→23:26)
[2018-02-01] MEDS: ARTIFICIAL TEARS-HYPROMELLOSE DROPS 15 ML BTL BOTH EYES SCH ×7 (00:18→23:26)
[2018-02-01 00:20] LABS: Glucose,Whole Blood 125 mg/dL (75-99)
[2018-02-01] MEDS: PROPOFOL 1,000 MG in EMPTY BAG 1 BAG IV SCH ×11 (00:28→21:11)
[2018-02-01] MEDS: methylPREDNISolone SOD SUCCI 125 MG/2 ML VIAL IV SCH ×5 (00:32→23:26)
[2018-02-01] MEDS: ceFAZolin IN SWFI 2 GM/20 ML SYRINGE IVP SCH ×2 (01:16→08:13)
[2018-02-01] MEDS: CLEVIDIPINE BUTYRATE 25 MG in EMPTY BAG 1 BAG IV SCH (01:21)
[2018-02-01] MEDS: DILTIAZEM 50 MG in SODIUM CHLORIDE 0.9% 40 ML IV SCH ×5 (01:23→15:51)
[2018-02-01 02:00] LABS: Glucose,Whole Blood 108 mg/dL (75-99)
[2018-02-01 02:21] LABS: Glucose,Whole Blood 115 mg/dL (75-99)
[2018-02-01 03:10] LABS: ABG Base Excess -1.2 mmol/L; ABG HCO3 24 mmol/L (21-25); ABG PCO2 39 mmHg (35-45); ABG PO2 186 mmHg (83-108); ABG TCO2 25 mmol/L (19-24)
[2018-02-01 03:21] LABS: Glucose,Whole Blood 108 mg/dL (75-99)
[2018-02-01] MEDS: ACETAMINOPHEN IV (For NPO) 1,000 MG in EMPTY BAG 1 BAG IVPB SCH ×3 (04:15→15:25)
[2018-02-01 04:16] LABS: Glucose,Whole Blood 96 mg/dL (75-99)
[2018-02-01 05:10] LABS: Glucose,Whole Blood 105 mg/dL (75-99)
[2018-02-01 05:14] LABS: Basophils # (A) 0.1 k/uL (0-0.2); Basophils % (A) 0 %; Eosinophils # (A) 0.4 k/uL (0-0.7); Eosinophils % (A) 2 %; HCT 39.4 % (39.0-53.0); HGB 12.9 gm/dL (13.0-17.5); Lymphocytes # (A) 2.5 k/uL (1.0-4.8); Lymphocytes % (A) 14 %; MCH 31.5 pg (25.0-35.0); MCHC 32.8 g/dL (31.0-37.0); MCV 95.8 fL (80.0-100.0); Mean Platelet Volume 7.3; Monocytes # (A) 1.2 k/uL (0-1.0); Monocytes % (A) 6 %; Neutrophils # (A) 13.8 k/uL (1.3-7.7); Neutrophils % (A) 76 %; Platelet Count 219 k/uL (150-450); RBC 4.11 m/uL (4.30-5.90); RDW 13.2 % (11.5-15.5)
[2018-02-01 05:26] LABS: INR 1.2 (<1.2); Partial Thromboplastin Time 24.3 sec (22.0-30.0); Prothrombin Time 11.6 sec (9.0-12.0)
[2018-02-01 06:33] LABS: Glucose,Whole Blood 109 mg/dL (75-99)
--- NOTE | 2018-02-01 06:43 | XR ---
EXAMINATION TYPE: XR chest 1V portable DATE OF EXAM: 02/01/2018 HISTORY: Post Operative Cardiac Surgery. REFERENCE: Previous study dated 01/31/2018. FINDINGS: There has been a midline sternotomy. The patient is ET tube and NG tube remain in place, un changed in appearance. There is a [place]-Velas[place] catheter in place via a right internal jugular approach. Its tip is in the pulmonary outflow tract. There is mild left basilar airspace disease. There is a small left effusion. Vascular congestion has resolved. IMPRESSION: CONTINUING POSTOPERATIVE CHANGE.
[2018-02-01 07:07] LABS: ABG Base Excess -0.6 mmol/L; ABG HCO3 24 mmol/L (21-25); ABG Oxygen Saturation 95.8 % (94-97); ABG PCO2 41 mmHg (35-45); ABG PH 7.38 (7.35-7.45); ABG PO2 77 mmHg (83-108); ABG TCO2 26 mmol/L (19-24)
[2018-02-01 07:07] LABS: ALT 105 U/L (21-72); AST 95 U/L (17-59); Albumin 3.4 g/dL (3.5-5.0); Alkaline Phosphatase 54 U/L (38-126); Anion Gap 10 mmol/L; Blood Urea Nitrogen 8 mg/dL (9-20); Calcium 8.7 mg/dL (8.4-10.2); Carbon Dioxide 21 mmol/L (22-30); Chloride 111 mmol/L (98-107); Glucose 107 mg/dL (74-99); Magnesium 2.4 mg/dL (1.6-2.3); Potassium 4.7 mmol/L (3.5-5.1); Sodium 142 mmol/L (137-145); Total Bilirubin 0.8 mg/dL (0.2-1.3); Total Protein 5.5 g/dL (6.3-8.2)
[2018-02-01 07:08] LABS: Glucose,Whole Blood 112 mg/dL (75-99)
[2018-02-01] MEDS ORDERED: FUROSEMIDE 10 MG/ML 2 ML VIAL IV ONE (07:54)
[2018-02-01 08:08] LABS: Glucose,Whole Blood 121 mg/dL (75-99)
[2018-02-01] MEDS: IPRATROPIUM-ALBUTEROL 3 ML NEB INHALATION SCH ×4 (08:11→20:40)
[2018-02-01] MEDS: ASPIRIN 325 MG TAB PO SCH (08:11)
[2018-02-01] MEDS: PANTOPRAZOLE 40 MG/10 ML VIAL IVP SCH (08:11)
[2018-02-01] MEDS: METOPROLOL TARTRATE 12.5 MG TAB PO SCH ×2 (08:12→21:12)
[2018-02-01] MEDS: ATORVASTATIN 40 MG TAB PO SCH (08:12)
[2018-02-01] MEDS: CLOPIDOGREL 75 MG TAB PO SCH (08:12)
[2018-02-01] MEDS: MUPIROCIN 2% OINT 22 GM TUBE NASAL SCH ×2 (08:13→20:46)
[2018-02-01] MEDS ORDERED: METOPROLOL TARTRATE 12.5 MG TAB PO SCH (09:00)
[2018-02-01 09:18] LABS: Glucose,Whole Blood 126 mg/dL (75-99)
--- NOTE | 2018-02-01 09:56 | PN ---
PROGRESS NOTE Mr. Castillo is a 42-year-old male with known history of coronary artery disease who had underwent percutaneous revascularization of his LAD many years ago, presented with non STEMI. Underwent cardiac catheterization, was found to have critical complex lesion in the stented segment of the LAD as well as chronically occluded right coronary artery, underwent coronary artery bypass grafting yesterday with NAJERA to LAD and a Y-graft of radial from the NAJERA to the right coronary artery. He is intubated, sedated. He is requiring high PEEP pressure to maintain his oxygenation. He is on no pressor. He continues to be in sinus mechanism. His urine output is stable. He continues to be on aspirin, Lipitor 40 mg daily, Plavix 75 mg daily. He was on IV Cardizem because of the radial artery. He received 1 dose of Lasix. He has received 1 dose of beta genna yesterday. PHYSICAL EXAMINATION: His blood pressure 107/60 with a heart rate in the 80s. LUNGS: Clear anteriorly. HEART: Regular rate and rhythm, S1, S2 with no rub appreciated. ABDOMEN: Soft, positive bowel sounds. EXTREMITIES: No edema. LAB DATA: Lab data revealed a BUN and creatinine of 8 and 0.8. Hemoglobin of 12.9. PH 7.38, pCO2 41, PO2 of 77 on 100% FiO2. He is on high PEEP. IMPRESSION: 1. Status post coronary artery bypass grafting. 2. Episode of hypoxemia, rule out ARDS. 3. Prior history of smoking. 4. Hyperlipidemia. RECOMMENDATION: We will continue on the supportive postoperative care. Hopefully we can start weaning his oxygenation down and subsequently his PEEP. Continue rest of his medical regimen and depending on his progress further recommendations will be made. MMODL / IJN: [id number] /
[2018-02-01 10:12] LABS: ABG Base Excess -0.5 mmol/L; ABG HCO3 25 mmol/L (21-25); ABG Oxygen Saturation 93.7 % (94-97); ABG PCO2 44 mmHg (35-45); ABG PH 7.36 (7.35-7.45); ABG PO2 70 mmHg (83-108); ABG TCO2 26 mmol/L (19-24)
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
[2018-02-01 10:18] LABS: Glucose,Whole Blood 143 mg/dL (75-99)
--- NOTE | 2018-02-01 10:25 | P.PN ---
Subjective Progress Note Date: 02/01/18 Principal diagnosis: Status post CABG, postoperative day #2 This is a pleasant 42-year-old gentleman who follows with Dr. Bansal as his primary care physician. He has a history of hypertension, anxiety, chronic and ongoing tobacco dependence, coronary artery disease with previous stent placement. He presented here yesterday as a transfer from an outside facility after presenting there with significant chest discomfort. He states he was taking a nap before going into work as he works the third shift approximately 6 PM and awoke to midsternal pressure and significant pain. He was barely able to speak but he was able to call 911 and get to the emergency room. He was found have a non-Q-wave ST segment elevation myocardial infarction. He had subsequent undergone cardiac catheterization which revealed a totally occluded right coronary artery that appeared to be chronically occluded. There is also a complex lesion and in-stent restenosis of the proximal LAD. He was recommended coronary artery bypass surgery which he is agreeable to. The plan is for surgery tomorrow morning. He has been smoking for 26 years. He states he was given inhaler possibly Symbicort in the past but has not used one in quite some time. No rescue inhaler. He is able to do his day-to-day activities without any significant shortness of breath. Preop FEV1 value is 50 % of predicted. His chest x-ray reveals bilateral patchy atelectasis. He has been educated regarding use of the incentive spirometer. He is maintaining good O2 saturations in the low 90s on room air. He's been afebrile. Hemodynamically stable. He remains on a heparin drip. He is currently free of any chest discomfort. Patient was seen postoperatively, he underwent myocardial revascularization today, patient had off pump double coronary artery bypass grafting using NAJERA to LAD, and left radial artery taken as a Y graft from the left internal mammary artery and anastomosis distally to the right coronary artery. Postoperatively patient was sent to the ICU, on mechanical ventilation. However seems to be having issues with oxygenation. Postoperative ABG, showed a pO2 of 50 pCO2 of 47 pH of 7.34. His ventilator settings were adjusted, patient was initially hyperventilated, however no significant change was noted in his O2 saturation, remained in the high 80s and about 90%. Then, repeat chest x-ray showed left lower lobe atelectasis, and mild prominence of the interstitium. Remind you patient had good LV function prior to surgery. Blood pressures seems to be elevated. His PA pressures are also elevated. And his cardiac index is 2.3. Patient was then placed on a lower tidal volume presently on tidal volume of 420, assist control rate of 28, and FiO2 100%, and a PEEP was increased from 10-14. Patient was also placed on higher dose of propofol, and on a fentanyl drip at 50 mcg/h, may even consider placing the patient on Nimbex. Airway mechanics were reviewed, peak airway pressures are in the mid 30s, and plateau pressures around 26-28. Rest of the labs from earlier today were all reviewed. Chest x-ray, ABG were reviewed. Hemodynamic profile was also reviewed. Patient is now postoperative day #2, patient developed postoperative hypoxic respiratory failure consistent with postoperative ARDS. Patient has been on high FiO2 100%, height PEEP of 16, lower tidal volumes of 420, and high respiratory rate in the range of 32. Patient had excellent gases earlier this morning, however he was switched down from PEEP of 16 to PEEP of 12, and ABG this morning is marginal again. I placed the patient back on PEEP of 16, and I cut down his FiO2 to 80%, repeat ABG showed a pO2 of 70 pCO2 of 44 pH of 7.36. Again the patient is on 80% FiO2 and PEEP of 16. Chest x-ray this morning showed no major abnormalities except for minimal left basilar atelectasis, and small left pleural effusion, hardly any vascular congestion noted. Again the patient is on a higher PEEP at present. CBC showed leukocytosis 18.0, however his WBC count is usually high, yesterday is was 23.3. Basic metabolic profile is normal, renal profile is normal. Patient remains on fentanyl drip, Nimbex drip, and propofol drip. Plan the proximal is being weaned off. And the patient remains hemodynamically stable. Objective - Vital Signs Vital signs: Vital Signs Temp 100.9 F H 02/01/18 04:00 Pulse 77 02/01/18 09:30 Resp 32 H 02/01/18 09:30 BP 115/72 02/01/18 09:30 Pulse Ox 92 L 02/01/18 09:30 Intake & Output 01/31/18 02/01/18 02/01/18 19:59 06:59 18:59 Intake Total 249.175 Output Total 62 Balance 187.175 Weight 107.3 kg Intake: IV 89 ACETAMINOPHEN IV (For NPO ) 1,000 mg In Empty Bag 1 bag @ 400 mls/hr IVPB Q6H [facility] Rx#:[id number] Cardiac Output 30 Lactated Ringers 1,000 ml 50 @ 50 mls/hr IV .Q20H [facility] Rx#:[id number] Pressure Bag 9 ceFAZolin 2 gm In Sodium Chloride 0.9% 30 ml @ 60 mls/hr IVPB ONCE ONE Rx#: [id number] Intake, IV Titration 160.175 Amount ACETAMINOPHEN IV (For NPO ) 1,000 mg In Empty Bag 1 bag @ 400 mls/hr IVPB Q6H [facility] Rx#:[id number] Cisatracurium 200 mg In 30.301 Sodium Chloride 0.9% 180 ml @ 1 MCG/KG/MIN 6.05 mls/hr IV .Q24H [facility] Rx#: [id number] Clevidipine Butyrate 25 12 mg In Empty Bag 1 bag @ 1 MG/HR 2 mls/hr IV .Q24H [facility] Rx#:[id number] Diltiazem 50 mg In Sodium 37.667 Chloride 0.9% 40 ml @ 10 MG/HR 10 mls/hr IV .Q5H [facility] Rx#:[id number] Insulin Regular 100 unit 0 In Sodium Chloride 0.9% 100 ml @ Per Protocol IV .Q0M [facility] Rx#:[id number] Lactated Ringers 1,000 ml @ 50 mls/hr IV .Q20H [facility] Rx#:[id number] Magnesium Sulfate-D5w Pmx 1 gm In Dextrose/Water 1 100ml.bag @ 100 mls/hr IVPB Q1H [facility] Rx#: [id number] Propofol 1,000 mg In 80.207 Empty Bag 1 bag @ Titrate IV .Q0M [facility] Rx#: [id number] ceFAZolin 2 gm In Sodium Chloride 0.9% 30 ml @ 60 mls/hr IVPB ONCE ONE Rx#: [id number] Output: Chest Tube Drainage 12 bilateral mediastinal 10 left pleural 2 Drainage left forearm Urine 50 Estimated Blood Loss Other: Voiding Method ABP, PAP, CO, CI - Last Documented Arterial Blood Pressure 108/73 Pulmonary Artery Pressure 38/23 Cardiac Output 5.1 Cardiac Index 2.3 - Exam Physical Exam: Revealed a 42-year-old white male in no distress, sedated, and paralyzed. on mechanical ventilation. Endotracheal tube and orogastric tube are intact. Head: Atraumatic, normocephalic. Lies in tubes were noted to be intact. HEENT:[Neck is supple.] [No neck masses.] [No thyromegaly.] [No JVD.] PERRLA, EOMI, no icterus. Chest: [Good breath sound bilaterally, no crackles nor rhonchi no wheezes. Symmetrical chest expansion noted. Cardiac Exam: [Normal S1 and S2, no S3 gallop, no murmur.] Abdomen: [Soft, nontender, no megaly, no rebound, no guarding, normal bowel sounds.] Extremities: [No clubbing, no edema, no cyanosis.] Neurological Exam: Sedated and paralyzed, could not be assessed.. Psychiatric: Could not be assessed. Lymphatics: No lymphadenopathy. Skin: No rashes. - Labs CBC & Chem 7: 02/01/18 04:51 02/01/18 04:51 Labs: Abnormal Lab Results - Last 24 Hours (Table) 01/30/18 01/30/18 01/31/18 Range/Units 08:39 23:39 09:03 WBC (3.8-10.6) k/uL RBC (4.30-5.90) m/uL Hgb (13.0-17.5) gm/dL Hct (39.0-53.0) % Neutrophils # (1.3-7.7) k/uL Lymphocytes # (1.0-4.8) k/uL Monocytes # (0-1.0) k/uL PT (9.0-12.0) sec INR (<1.2) APTT (22.0-30.0) sec ABG pH (7.35-7.45) ABG pCO2 (35-45) mmHg ABG pO2 (83-108) mmHg ABG Total CO2 26 H (19-24) mmol/L ABG O2 Saturation (94-97) % ABG Hematocrit (34.0-46.0) % ABG Ionized Calcium (4.5-5.3) mg/dL ABG Glucose (75-99) mg/dL Hemoglobin (13.0-17.5) gm/dL Chloride (98-107) mmol/L Carbon Dioxide (22-30) mmol/L BUN (9-20) mg/dL Creatinine (0.66-1.25) mg/dL Glucose (74-99) mg/dL POC Glucose (mg/dL) (75-99) mg/dL Calcium (8.4-10.2) mg/dL Magnesium (1.6-2.3) mg/dL Iron 46 L (65-175) ug/dL Ferritin 358.4 H (22.0-322.0) ng/mL AST (17-59) U/L ALT (21-72) U/L Alkaline Phosphatase (38-126) U/L Total Protein (6.3-8.2) g/dL Albumin (3.5-5.0) g/dL Arterial Blood Glucose (75-99) mg/dL Crossmatch See Detail 01/31/18 01/31/18 01/31/18 Range/Units 10:04 11:08 12:08 WBC (3.8-10.6) k/uL RBC (4.30-5.90) m/uL Hgb (13.0-17.5) gm/dL Hct (39.0-53.0) % Neutrophils # (1.3-7.7) k/uL Lymphocytes # (1.0-4.8) k/uL Monocytes # (0-1.0) k/uL PT (9.0-12.0) sec INR (<1.2) APTT (22.0-30.0) sec ABG pH 7.34 L 7.33 L (7.35-7.45) ABG pCO2 (35-45) mmHg ABG pO2 126 H 198 H (83-108) mmHg ABG Total CO2 26 H 25 H (19-24) mmol/L ABG O2 Saturation 98.6 H 99.4 H (94-97) % ABG Hematocrit 32 L (34.0-46.0) % ABG Ionized Calcium 4.4 L (4.5-5.3) mg/dL ABG Glucose 109 H 109 H 103 H (75-99) mg/dL Hemoglobin 10.5 L (13.0-17.5) gm/dL Chloride (98-107) mmol/L Carbon Dioxide (22-30) mmol/L BUN (9-20) mg/dL Creatinine (0.66-1.25) mg/dL Glucose (74-99) mg/dL POC Glucose (mg/dL) (75-99) mg/dL Calcium (8.4-10.2) mg/dL Magnesium (1.6-2.3) mg/dL Iron (65-175) ug/dL Ferritin (22.0-322.0) ng/mL AST (17-59) U/L ALT (21-72) U/L Alkaline Phosphatase (38-126) U/L Total Protein (6.3-8.2) g/dL Albumin (3.5-5.0) g/dL Arterial Blood Glucose 109 H 109 H 103 H (75-99) mg/dL Crossmatch 01/31/18 01/31/18 01/31/18 Range/Units 12:40 13:27 14:33 WBC (3.8-10.6) k/uL RBC (4.30-5.90) m/uL Hgb (13.0-17.5) gm/dL Hct (39.0-53.0) % Neutrophils # (1.3-7.7) k/uL Lymphocytes # (1.0-4.8) k/uL Monocytes # (0-1.0) k/uL PT (9.0-12.0) sec INR (<1.2) APTT (22.0-30.0) sec ABG pH (7.35-7.45) ABG pCO2 (35-45) mmHg ABG pO2 131 H 120 H (83-108) mmHg ABG Total CO2 26 H 26 H (19-24) mmol/L ABG O2 Saturation 98.8 H 98.4 H (94-97) % ABG Hematocrit (34.0-46.0) % ABG Ionized Calcium 4.4 L 4.4 L (4.5-5.3) mg/dL ABG Glucose 106 H 109 H (75-99) mg/dL Hemoglobin 11.0 L 11.3 L (13.0-17.5) gm/dL Chloride (98-107) mmol/L Carbon Dioxide (22-30) mmol/L BUN (9-20) mg/dL Creatinine (0.66-1.25) mg/dL Glucose (74-99) mg/dL POC Glucose (mg/dL) 110 H (75-99) mg/dL Calcium (8.4-10.2) mg/dL Magnesium (1.6-2.3) mg/dL Iron (65-175) ug/dL Ferritin (22.0-322.0) ng/mL AST (17-59) U/L ALT (21-72) U/L Alkaline Phosphatase (38-126) U/L Total Protein (6.3-8.2) g/dL Albumin (3.5-5.0) g/dL Arterial Blood Glucose 106 H 109 H (75-99) mg/dL Crossmatch 01/31/18 01/31/18 01/31/18 Range/Units 14:35 14:35 14:35 WBC 20.5 H (3.8-10.6) k/uL RBC 3.55 L (4.30-5.90) m/uL Hgb 11.4 L D (13.0-17.5) gm/dL Hct 34.0 L (39.0-53.0) % Neutrophils # 13.5 H (1.3-7.7) k/uL Lymphocytes # 5.8 H (1.0-4.8) k/uL Monocytes # (0-1.0) k/uL PT 12.7 H (9.0-12.0) sec INR 1.3 H (<1.2) APTT 30.8 H (22.0-30.0) sec ABG pH (7.35-7.45) ABG pCO2 (35-45) mmHg ABG pO2 (83-108) mmHg ABG Total CO2 (19-24) mmol/L ABG O2 Saturation (94-97) % ABG Hematocrit (34.0-46.0) % ABG Ionized Calcium (4.5-5.3) mg/dL ABG Glucose (75-99) mg/dL Hemoglobin (13.0-17.5) gm/dL Chloride 111 H (98-107) mmol/L Carbon Dioxide (22-30) mmol/L BUN 8 L (9-20) mg/dL Creatinine (0.66-1.25) mg/dL Glucose 110 H (74-99) mg/dL POC Glucose (mg/dL) (75-99) mg/dL Calcium 8.1 L (8.4-10.2) mg/dL Magnesium (1.6-2.3) mg/dL Iron (65-175) ug/dL Ferritin (22.0-322.0) ng/mL AST 184 H (17-59) U/L ALT 115 H (21-72) U/L Alkaline Phosphatase <20 L (38-126) U/L Total Protein 5.3 L (6.3-8.2) g/dL Albumin (3.5-5.0) g/dL Arterial Blood Glucose (75-99) mg/dL Crossmatch 01/31/18 01/31/18 01/31/18 Range/Units 14:37 15:02 16:17 WBC (3.8-10.6) k/uL RBC (4.30-5.90) m/uL Hgb (13.0-17.5) gm/dL Hct (39.0-53.0) % Neutrophils # (1.3-7.7) k/uL Lymphocytes # (1.0-4.8) k/uL Monocytes # (0-1.0) k/uL PT (9.0-12.0) sec INR (<1.2) APTT (22.0-30.0) sec ABG pH 7.31 L (7.35-7.45) ABG pCO2 51 H (35-45) mmHg ABG pO2 61 L (83-108) mmHg ABG Total CO2 27 H (19-24) mmol/L ABG O2 Saturation 88.6 L (94-97) % ABG Hematocrit (34.0-46.0) % ABG Ionized Calcium (4.5-5.3) mg/dL ABG Glucose (75-99) mg/dL Hemoglobin (13.0-17.5) gm/dL Chloride (98-107) mmol/L Carbon Dioxide (22-30) mmol/L BUN (9-20) mg/dL Creatinine (0.66-1.25) mg/dL Glucose (74-99) mg/dL POC Glucose (mg/dL) 112 H 122 H (75-99) mg/dL Calcium (8.4-10.2) mg/dL Magnesium (1.6-2.3) mg/dL Iron (65-175) ug/dL Ferritin (22.0-322.0) ng/mL AST (17-59) U/L ALT (21-72) U/L Alkaline Phosphatase (38-126) U/L Total Protein (6.3-8.2) g/dL Albumin (3.5-5.0) g/dL Arterial Blood Glucose (75-99) mg/dL Crossmatch 01/31/18 01/31/18 01/31/18 Range/Units 16:51 17:46 17:50 WBC 20.9 H (3.8-10.6) k/uL RBC 3.93 L (4.30-5.90) m/uL Hgb 12.6 L (13.0-17.5) gm/dL Hct 37.5 L (39.0-53.0) % Neutrophils # 16.5 H (1.3-7.7) k/uL Lymphocytes # (1.0-4.8) k/uL Monocytes # 1.1 H (0-1.0) k/uL PT (9.0-12.0) sec INR (<1.2) APTT (22.0-30.0) sec ABG pH 7.34 L (7.35-7.45) ABG pCO2 47 H (35-45) mmHg ABG pO2 50 L* (83-108) mmHg ABG Total CO2 27 H (19-24) mmol/L ABG O2 Saturation 82.4 L (94-97) % ABG Hematocrit (34.0-46.0) % ABG Ionized Calcium (4.5-5.3) mg/dL ABG Glucose (75-99) mg/dL Hemoglobin (13.0-17.5) gm/dL Chloride (98-107) mmol/L Carbon Dioxide (22-30) mmol/L BUN (9-20) mg/dL Creatinine (0.66-1.25) mg/dL Glucose (74-99) mg/dL POC Glucose (mg/dL) 149 H (75-99) mg/dL Calcium (8.4-10.2) mg/dL Magnesium (1.6-2.3) mg/dL Iron (65-175) ug/dL Ferritin (22.0-322.0) ng/mL AST (17-59) U/L ALT (21-72) U/L Alkaline Phosphatase (38-126) U/L Total Protein (6.3-8.2) g/dL Albumin (3.5-5.0) g/dL Arterial Blood Glucose (75-99) mg/dL Crossmatch 01/31/18 01/31/18 01/31/18 Range/Units 19:09 19:34 20:09 WBC (3.8-10.6) k/uL RBC (4.30-5.90) m/uL Hgb (13.0-17.5) gm/dL Hct (39.0-53.0) % Neutrophils # (1.3-7.7) k/uL Lymphocytes # (1.0-4.8) k/uL Monocytes # (0-1.0) k/uL PT (9.0-12.0) sec INR (<1.2) APTT (22.0-30.0) sec ABG pH (7.35-7.45) ABG pCO2 (35-45) mmHg ABG pO2 63 L (83-108) mmHg ABG Total CO2 26 H (19-24) mmol/L ABG O2 Saturation 92.0 L (94-97) % ABG Hematocrit (34.0-46.0) % ABG Ionized Calcium (4.5-5.3) mg/dL ABG Glucose (75-99) mg/dL Hemoglobin (13.0-17.5) gm/dL Chloride (98-107) mmol/L Carbon Dioxide (22-30) mmol/L BUN (9-20) mg/dL Creatinine (0.66-1.25) mg/dL Glucose (74-99) mg/dL POC Glucose (mg/dL) 139 H 141 H (75-99) mg/dL Calcium (8.4-10.2) mg/dL Magnesium (1.6-2.3) mg/dL Iron (65-175) ug/dL Ferritin (22.0-322.0) ng/mL AST (17-59) U/L ALT (21-72) U/L Alkaline Phosphatase (38-126) U/L Total Protein (6.3-8.2) g/dL Albumin (3.5-5.0) g/dL Arterial Blood Glucose (75-99) mg/dL Crossmatch 01/31/18 01/31/18 01/31/18 Range/Units 21:04 21:28 21:28 WBC 23.3 H (3.8-10.6) k/uL RBC 4.01 L (4.30-5.90) m/uL Hgb 12.8 L (13.0-17.5) gm/dL Hct 37.7 L (39.0-53.0) % Neutrophils # (1.3-7.7) k/uL Lymphocytes # (1.0-4.8) k/uL Monocytes # (0-1.0) k/uL PT (9.0-12.0) sec INR (<1.2) APTT (22.0-30.0) sec ABG pH (7.35-7.45) ABG pCO2 (35-45) mmHg ABG pO2 (83-108) mmHg ABG Total CO2 (19-24) mmol/L ABG O2 Saturation (94-97) % ABG Hematocrit (34.0-46.0) % ABG Ionized Calcium (4.5-5.3) mg/dL ABG Glucose (75-99) mg/dL Hemoglobin (13.0-17.5) gm/dL Chloride 109 H (98-107) mmol/L Carbon Dioxide (22-30) mmol/L BUN 7 L (9-20) mg/dL Creatinine 0.60 L (0.66-1.25) mg/dL Glucose 118 H (74-99) mg/dL POC Glucose (mg/dL) 128 H (75-99) mg/dL Calcium (8.4-10.2) mg/dL Magnesium 2.7 H (1.6-2.3) mg/dL Iron (65-175) ug/dL Ferritin (22.0-322.0) ng/mL AST (17-59) U/L ALT (21-72) U/L Alkaline Phosphatase (38-126) U/L Total Protein (6.3-8.2) g/dL Albumin (3.5-5.0) g/dL Arterial Blood Glucose (75-99) mg/dL Crossmatch 01/31/18 01/31/18 01/31/18 Range/Units 22:00 22:48 23:44 WBC (3.8-10.6) k/uL RBC (4.30-5.90) m/uL Hgb (13.0-17.5) gm/dL Hct (39.0-53.0) % Neutrophils # (1.3-7.7) k/uL Lymphocytes # (1.0-4.8) k/uL Monocytes # (0-1.0) k/uL PT (9.0-12.0) sec INR (<1.2) APTT (22.0-30.0) sec ABG pH 7.34 L (7.35-7.45) ABG pCO2 46 H (35-45) mmHg ABG pO2 61 L (83-108) mmHg ABG Total CO2 26 H (19-24) mmol/L ABG O2 Saturation 90.0 L (94-97) % ABG Hematocrit (34.0-46.0) % ABG Ionized Calcium (4.5-5.3) mg/dL ABG Glucose (75-99) mg/dL Hemoglobin (13.0-17.5) gm/dL Chloride (98-107) mmol/L Carbon Dioxide (22-30) mmol/L BUN (9-20) mg/dL Creatinine (0.66-1.25) mg/dL Glucose (74-99) mg/dL POC Glucose (mg/dL) 128 H 123 H (75-99) mg/dL Calcium (8.4-10.2) mg/dL Magnesium (1.6-2.3) mg/dL Iron (65-175) ug/dL Ferritin (22.0-322.0) ng/mL AST (17-59) U/L ALT (21-72) U/L Alkaline Phosphatase (38-126) U/L Total Protein (6.3-8.2) g/dL Albumin (3.5-5.0) g/dL Arterial Blood Glucose (75-99) mg/dL Crossmatch 02/01/18 02/01/18 02/01/18 Range/Units 00:08 01:15 EST 02:05 WBC (3.8-10.6) k/uL RBC (4.30-5.90) m/uL Hgb (13.0-17.5) gm/dL Hct (39.0-53.0) % Neutrophils # (1.3-7.7) k/uL Lymphocytes # (1.0-4.8) k/uL Monocytes # (0-1.0) k/uL PT (9.0-12.0) sec INR (<1.2) APTT (22.0-30.0) sec ABG pH (7.35-7.45) ABG pCO2 (35-45) mmHg ABG pO2 (83-108) mmHg ABG Total CO2 (19-24) mmol/L ABG O2 Saturation (94-97) % ABG Hematocrit (34.0-46.0) % ABG Ionized Calcium (4.5-5.3) mg/dL ABG Glucose (75-99) mg/dL Hemoglobin (13.0-17.5) gm/dL Chloride (98-107) mmol/L Carbon Dioxide (22-30) mmol/L BUN (9-20) mg/dL Creatinine (0.66-1.25) mg/dL Glucose (74-99) mg/dL POC Glucose (mg/dL) 125 H 108 H 115 H (75-99) mg/dL Calcium (8.4-10.2) mg/dL Magnesium (1.6-2.3) mg/dL Iron (65-175) ug/dL Ferritin (22.0-322.0) ng/mL AST (17-59) U/L ALT (21-72) U/L Alkaline Phosphatase (38-126) U/L Total Protein (6.3-8.2) g/dL Albumin (3.5-5.0) g/dL Arterial Blood Glucose (75-99) mg/dL Crossmatch 02/01/18 02/01/18 02/01/18 Range/Units 02:52 03:05 04:51 WBC 18.0 H (3.8-10.6) k/uL RBC 4.11 L (4.30-5.90) m/uL Hgb 12.9 L (13.0-17.5) gm/dL Hct (39.0-53.0) % Neutrophils # 13.8 H (1.3-7.7) k/uL Lymphocytes # (1.0-4.8) k/uL Monocytes # 1.2 H (0-1.0) k/uL PT (9.0-12.0) sec INR (<1.2) APTT (22.0-30.0) sec ABG pH (7.35-7.45) ABG pCO2 (35-45) mmHg ABG pO2 186 H (83-108) mmHg ABG Total CO2 25 H (19-24) mmol/L ABG O2 Saturation 99.0 H (94-97) % ABG Hematocrit (34.0-46.0) % ABG Ionized Calcium (4.5-5.3) mg/dL ABG Glucose (75-99) mg/dL Hemoglobin (13.0-17.5) gm/dL Chloride (98-107) mmol/L Carbon Dioxide (22-30) mmol/L BUN (9-20) mg/dL Creatinine (0.66-1.25) mg/dL Glucose (74-99) mg/dL POC Glucose (mg/dL) 108 H (75-99) mg/dL Calcium (8.4-10.2) mg/dL Magnesium (1.6-2.3) mg/dL Iron (65-175) ug/dL Ferritin (22.0-322.0) ng/mL AST (17-59) U/L ALT (21-72) U/L Alkaline Phosphatase (38-126) U/L Total Protein (6.3-8.2) g/dL Albumin (3.5-5.0) g/dL Arterial Blood Glucose (75-99) mg/dL Crossmatch 02/01/18 02/01/18 02/01/18 Range/Units 04:51 04:51 04:59 WBC (3.8-10.6) k/uL RBC (4.30-5.90) m/uL Hgb (13.0-17.5) gm/dL Hct (39.0-53.0) % Neutrophils # (1.3-7.7) k/uL Lymphocytes # (1.0-4.8) k/uL Monocytes # (0-1.0) k/uL PT (9.0-12.0) sec INR 1.2 H (<1.2) APTT (22.0-30.0) sec ABG pH (7.35-7.45) ABG pCO2 (35-45) mmHg ABG pO2 (83-108) mmHg ABG Total CO2 (19-24) mmol/L ABG O2 Saturation (94-97) % ABG Hematocrit (34.0-46.0) % ABG Ionized Calcium (4.5-5.3) mg/dL ABG Glucose (75-99) mg/dL Hemoglobin (13.0-17.5) gm/dL Chloride 111 H (98-107) mmol/L Carbon Dioxide 21 L (22-30) mmol/L BUN 8 L (9-20) mg/dL Creatinine (0.66-1.25) mg/dL Glucose 107 H (74-99) mg/dL POC Glucose (mg/dL) 105 H (75-99) mg/dL Calcium (8.4-10.2) mg/dL Magnesium 2.4 H (1.6-2.3) mg/dL Iron (65-175) ug/dL Ferritin (22.0-322.0) ng/mL AST 95 H (17-59) U/L ALT 105 H (21-72) U/L Alkaline Phosphatase (38-126) U/L Total Protein 5.5 L (6.3-8.2) g/dL Albumin 3.4 L (3.5-5.0) g/dL Arterial Blood Glucose (75-99) mg/dL Crossmatch 02/01/18 02/01/18 02/01/18 Range/Units 06:22 06:56 07:05 WBC (3.8-10.6) k/uL RBC (4.30-5.90) m/uL Hgb (13.0-17.5) gm/dL Hct (39.0-53.0) % Neutrophils # (1.3-7.7) k/uL Lymphocytes # (1.0-4.8) k/uL Monocytes # (0-1.0) k/uL PT (9.0-12.0) sec INR (<1.2) APTT (22.0-30.0) sec ABG pH (7.35-7.45) ABG pCO2 (35-45) mmHg ABG pO2 77 L (83-108) mmHg ABG Total CO2 26 H (19-24) mmol/L ABG O2 Saturation (94-97) % ABG Hematocrit (34.0-46.0) % ABG Ionized Calcium (4.5-5.3) mg/dL ABG Glucose (75-99) mg/dL Hemoglobin (13.0-17.5) gm/dL Chloride (98-107) mmol/L Carbon Dioxide (22-30) mmol/L BUN (9-20) mg/dL Creatinine (0.66-1.25) mg/dL Glucose (74-99) mg/dL POC Glucose (mg/dL) 109 H 112 H (75-99) mg/dL Calcium (8.4-10.2) mg/dL Magnesium (1.6-2.3) mg/dL Iron (65-175) ug/dL Ferritin (22.0-322.0) ng/mL AST (17-59) U/L ALT (21-72) U/L Alkaline Phosphatase (38-126) U/L Total Protein (6.3-8.2) g/dL Albumin (3.5-5.0) g/dL Arterial Blood Glucose (75-99) mg/dL Crossmatch 02/01/18 02/01/18 02/01/18 Range/Units 07:57 09:07 10:07 WBC (3.8-10.6) k/uL RBC (4.30-5.90) m/uL Hgb (13.0-17.5) gm/dL Hct (39.0-53.0) % Neutrophils # (1.3-7.7) k/uL Lymphocytes # (1.0-4.8) k/uL Monocytes # (0-1.0) k/uL PT (9.0-12.0) sec INR (<1.2) APTT (22.0-30.0) sec ABG pH (7.35-7.45) ABG pCO2 (35-45) mmHg ABG pO2 70 L (83-108) mmHg ABG Total CO2 26 H (19-24) mmol/L ABG O2 Saturation 93.7 L (94-97) % ABG Hematocrit (34.0-46.0) % ABG Ionized Calcium (4.5-5.3) mg/dL ABG Glucose (75-99) mg/dL Hemoglobin (13.0-17.5) gm/dL Chloride (98-107) mmol/L Carbon Dioxide (22-30) mmol/L BUN (9-20) mg/dL Creatinine (0.66-1.25) mg/dL Glucose (74-99) mg/dL POC Glucose (mg/dL) 121 H 126 H (75-99) mg/dL Calcium (8.4-10.2) mg/dL Magnesium (1.6-2.3) mg/dL Iron (65-175) ug/dL Ferritin (22.0-322.0) ng/mL AST (17-59) U/L ALT (21-72) U/L Alkaline Phosphatase (38-126) U/L Total Protein (6.3-8.2) g/dL Albumin (3.5-5.0) g/dL Arterial Blood Glucose (75-99) mg/dL Crossmatch 02/01/18 Range/Units 10:07 WBC (3.8-10.6) k/uL RBC (4.30-5.90) m/uL Hgb (13.0-17.5) gm/dL Hct (39.0-53.0) % Neutrophils # (1.3-7.7) k/uL Lymphocytes # (1.0-4.8) k/uL Monocytes # (0-1.0) k/uL PT (9.0-12.0) sec INR (<1.2) APTT (22.0-30.0) sec ABG pH (7.35-7.45) ABG pCO2 (35-45) mmHg ABG pO2 (83-108) mmHg ABG Total CO2 (19-24) mmol/L ABG O2 Saturation (94-97) % ABG Hematocrit (34.0-46.0) % ABG Ionized Calcium (4.5-5.3) mg/dL ABG Glucose (75-99) mg/dL Hemoglobin (13.0-17.5) gm/dL Chloride (98-107) mmol/L Carbon Dioxide (22-30) mmol/L BUN (9-20) mg/dL Creatinine (0.66-1.25) mg/dL Glucose (74-99) mg/dL POC Glucose (mg/dL) 143 H (75-99) mg/dL Calcium (8.4-10.2) mg/dL Magnesium (1.6-2.3) mg/dL Iron (65-175) ug/dL Ferritin (22.0-322.0) ng/mL AST (17-59) U/L ALT (21-72) U/L Alkaline Phosphatase (38-126) U/L Total Protein (6.3-8.2) g/dL Albumin (3.5-5.0) g/dL Arterial Blood Glucose (75-99) mg/dL Crossmatch Microbiology - Last 24 Hours (Table) 01/29/18 23:00 Urine Culture - Preliminary Urine,Clean Catch Gram Neg Bacilli 01/29/18 19:41 Nasal Screen MRSA/MSSA - Final Nasal Swab Assessment and Plan Assessment: Impression: 1 status post CABG, postoperative day #1 2 unexpected postoperative hypoxic respiratory failure, strongly suspect ARDS. Hence the patient will be kept on lower tidal volumes, high respiratory rates , higher PEEP, keep patient on Nimbex, fentanyl, propofol, no plans for any weaning at this point. I was able to cut down the FiO2 to 80%, and I kept the PEEP at 16. ABG at this point is acceptable/marginal. 3 recent acute non-ST segment elevation myocardial infarction 4 history of hypertension 5 tobacco dependence syndrome and underlying COPD 6 obesity 7 history of generalized anxiety disorder. Recommendation: Continue mechanical ventilation, continue high PEEP, high FiO2, lower tidal volume, higher respiratory rate, nutritional support, hemodynamic support, continue fentanyl propofol and Nimbex. Discussed his condition with different consultants and surgeon on the case. No plans to address any weaning at this point. Patient is definitely critically ill. We'll continue to follow closely. Critical care time is 35 minutes not including the time placed on procedures/arterial line. Time with Patient: Greater than 30
[2018-02-01] MEDS: LACTATED RINGERS 1,000 ML IV SCH (10:31)
[2018-02-01] MEDS ORDERED: HYDROcodone/APAP 5-325MG 1 EACH TAB PO PRN ×2 (10:47)
--- NOTE | 2018-02-01 10:47 | PCN ---
PROCEDURE NOTE OPERATIVE REPORT: Placement of a right brachial arterial line. PREOPERATIVE DIAGNOSES: Status post coronary artery bypass grafting and postoperative hypoxic respiratory failure. POSTOPERATIVE DIAGNOSES: Status post coronary artery bypass grafting and postoperative hypoxic respiratory failure. ANESTHESIA: None deployed. DESCRIPTION OF PROCEDURE: The right brachial region was prepared in a sterile fashion, drapes were applied. The right brachial artery was localized using Doppler, and using the standard radial arterial line catheter, the right brachial artery was palpated, cannulated, and a guidewire was placed. A Cook catheter was inserted over the guidewire, and the guidewire was removed. Good blood flow was noted and good waveform. No evidence of any immediate complications. MMODL / IJN: [id number] /
[2018-02-01] MEDS: cefTRIAXone 2,000 MG in SODIUM CHLORIDE 0.9% 100 ML IVPB SCH (11:27)
[2018-02-01 11:41] LABS: Glucose,Whole Blood 150 mg/dL (75-99)
[2018-02-01 12:17] LABS: Glucose,Whole Blood 122 mg/dL (75-99)
--- NOTE | 2018-02-01 13:16 | P.PN ---
Subjective Progress Note Date: 01/31/18 Principal diagnosis: NSTEMI s/p CABG Mr. Castillo is a 42-year-old male with a past medical history of hypertension, hyperlipidemia, nicotine dependence, coronary artery disease with prior stenting performed in 2003 2004 in [place] coming into the hospital with a chief complaint of chest discomfort in the upper mid sternum. Patient describes it as severe tightness and heaviness and he was short of breath and diaphoretic. Patient pain was so severe that he was unable to speak at the time when he had the chest pain. In the ED patient had elevated troponins and started on IV heparin. Patient subsequently underwent cardiac cath which revealed a total occluded right coronary artery that appeared to be chronically occluded. There is also a complex lesion and in-stent restenosis of the proximal LAD. So he was recommended to get a coronary artery bypass graft that is scheduled for tomorrow morning. Patient has risk factors of smoking for the past 26 years almost 1 pack per day. On 01/31/2018- patient underwent coronary artery bypass grafting today. Postoperative the patient has been on the ventilator and is currently in the ICU. Patient is sedated and mechanically ventilated. Review of systems could not be done. As per the nursing staff report patient has been on 100% FiO2 and saturating in the high 80s and he is getting an ABG drawn. Objective - Vital Signs Vital signs: Vital Signs Temp 100.9 F H 01/31/18 20:00 Pulse 106 H 01/31/18 21:30 Resp 30 H 01/31/18 21:30 BP 147/86 01/31/18 04:55 Pulse Ox 96 01/31/18 21:30 Intake & Output 01/31/18 01/31/18 02/01/18 06:59 18:59 05:59 Intake Total 37.077 857.404 161.886 Output Total 5115 250 Balance 37.077 -4257.596 -88.114 Weight 100.9 kg Intake: IV 103 Cardiac Output 70 Intake, IV Titration 37.077 754.404 161.886 Amount ACETAMINOPHEN IV (For NPO 100 ) 1,000 mg In Empty Bag 1 bag @ 400 mls/hr IVPB Q6H [facility] Rx#:[id number] Clevidipine Butyrate 25 64.600 67.667 mg In Empty Bag 1 bag @ 1 MG/HR 2 mls/hr IV .Q24H [facility] Rx#:[id number] Diltiazem 50 mg In Sodium 14.583 Chloride 0.9% 40 ml @ 5 MG/HR 5 mls/hr IV .Q10H [facility] Rx#:[id number] Heparin Sod,Pork in 0.45% 37.077 NaCl 25,000 unit In 0.45 % NaCl 1 500ml.bag @ 9. 586 UNITS/KG/HR 20 mls/hr IV .Q24H [facility] Rx#: [id number] Insulin Regular 100 unit 0.7 5.629 In Sodium Chloride 0.9% 100 ml @ Per Protocol IV .Q0M [facility] Rx#:[id number] Lactated Ringers 1,000 ml 200 50 @ 50 mls/hr IV .Q20H [facility] Rx#:[id number] Magnesium Sulfate-D5w Pmx 200 1 gm In Dextrose/Water 1 100ml.bag @ 100 mls/hr IVPB Q1H [facility] Rx#: [id number] Propofol 1,000 mg In 114.521 38.59 Empty Bag 1 bag @ Titrate IV .Q0M [facility] Rx#: [id number] ceFAZolin 2 gm In Sodium 60 Chloride 0.9% 30 ml @ 60 mls/hr IVPB ONCE ONE Rx#: [id number] Output: Chest Tube Drainage 225 20 bilateral mediastinal 150 10 left pleural 75 10 Drainage 10 left forearm 10 Urine 2380 230 Estimated Blood Loss 2500 Other: Voiding Method Urinal Indwelling Catheter ABP, PAP, CO, CI - Last Documented Arterial Blood Pressure 153/78 Pulmonary Artery Pressure 39/30 Cardiac Output 7.7 Cardiac Index 3.2 - Exam GENERAL: Patient is mechanically ventilated and sedated. HEENT: Endotracheal tube and orogastric tube in place CARDIOVASCULAR: S1 and S2 present. No murmurs, rubs, or gallops. PULMONARY: Diminished breath sounds at the lower lung bases. No crackles or wheezes. ABDOMEN: Soft, nontender, nondistended, normoactive bowel sounds. No palpable organomegaly. EXTREMITIES: Mild cyanosis of the ear lobules. No edema. NEUROLOGICAL: Could not be assessed as he is sedated SKIN: No rashes. - Labs CBC & Chem 7: 02/01/18 04:51 02/01/18 04:51 Labs: Abnormal Lab Results - Last 24 Hours (Table) 01/30/18 01/30/18 01/30/18 Range/Units 08:39 23:39 23:39 WBC (3.8-10.6) k/uL RBC (4.30-5.90) m/uL Hgb (13.0-17.5) gm/dL Hct (39.0-53.0) % Neutrophils # (1.3-7.7) k/uL Lymphocytes # (1.0-4.8) k/uL Monocytes # (0-1.0) k/uL PT (9.0-12.0) sec INR (<1.2) APTT 30.4 H (22.0-30.0) sec ABG pH (7.35-7.45) ABG pCO2 (35-45) mmHg ABG pO2 (83-108) mmHg ABG Total CO2 (19-24) mmol/L ABG O2 Saturation (94-97) % ABG Hematocrit (34.0-46.0) % ABG Ionized Calcium (4.5-5.3) mg/dL ABG Glucose (75-99) mg/dL Hemoglobin (13.0-17.5) gm/dL Chloride (98-107) mmol/L Carbon Dioxide (22-30) mmol/L BUN (9-20) mg/dL Glucose (74-99) mg/dL POC Glucose (mg/dL) (75-99) mg/dL Calcium (8.4-10.2) mg/dL Iron (65-175) ug/dL Ferritin (22.0-322.0) ng/mL AST (17-59) U/L ALT (21-72) U/L Alkaline Phosphatase (38-126) U/L C-Reactive Protein 43.0 H (<10.0) mg/L Total Protein (6.3-8.2) g/dL Arterial Blood Glucose (75-99) mg/dL Crossmatch See Detail 01/30/18 01/31/18 01/31/18 Range/Units 23:39 05:32 05:32 WBC 18.1 H (3.8-10.6) k/uL RBC (4.30-5.90) m/uL Hgb (13.0-17.5) gm/dL Hct (39.0-53.0) % Neutrophils # 9.7 H (1.3-7.7) k/uL Lymphocytes # 6.0 H (1.0-4.8) k/uL Monocytes # 1.3 H (0-1.0) k/uL PT (9.0-12.0) sec INR (<1.2) APTT (22.0-30.0) sec ABG pH (7.35-7.45) ABG pCO2 (35-45) mmHg ABG pO2 (83-108) mmHg ABG Total CO2 (19-24) mmol/L ABG O2 Saturation (94-97) % ABG Hematocrit (34.0-46.0) % ABG Ionized Calcium (4.5-5.3) mg/dL ABG Glucose (75-99) mg/dL Hemoglobin (13.0-17.5) gm/dL Chloride 108 H (98-107) mmol/L Carbon Dioxide 21 L (22-30) mmol/L BUN (9-20) mg/dL Glucose 102 H (74-99) mg/dL POC Glucose (mg/dL) (75-99) mg/dL Calcium (8.4-10.2) mg/dL Iron 46 L (65-175) ug/dL Ferritin 358.4 H (22.0-322.0) ng/mL AST (17-59) U/L ALT (21-72) U/L Alkaline Phosphatase (38-126) U/L C-Reactive Protein (<10.0) mg/L Total Protein (6.3-8.2) g/dL Arterial Blood Glucose (75-99) mg/dL Crossmatch 01/31/18 01/31/18 01/31/18 Range/Units 09:03 10:04 11:08 WBC (3.8-10.6) k/uL RBC (4.30-5.90) m/uL Hgb (13.0-17.5) gm/dL Hct (39.0-53.0) % Neutrophils # (1.3-7.7) k/uL Lymphocytes # (1.0-4.8) k/uL Monocytes # (0-1.0) k/uL PT (9.0-12.0) sec INR (<1.2) APTT (22.0-30.0) sec ABG pH 7.34 L (7.35-7.45) ABG pCO2 (35-45) mmHg ABG pO2 126 H (83-108) mmHg ABG Total CO2 26 H 26 H 25 H (19-24) mmol/L ABG O2 Saturation 98.6 H (94-97) % ABG Hematocrit (34.0-46.0) % ABG Ionized Calcium (4.5-5.3) mg/dL ABG Glucose 109 H 109 H (75-99) mg/dL Hemoglobin (13.0-17.5) gm/dL Chloride (98-107) mmol/L Carbon Dioxide (22-30) mmol/L BUN (9-20) mg/dL Glucose (74-99) mg/dL POC Glucose (mg/dL) (75-99) mg/dL Calcium (8.4-10.2) mg/dL Iron (65-175) ug/dL Ferritin (22.0-322.0) ng/mL AST (17-59) U/L ALT (21-72) U/L Alkaline Phosphatase (38-126) U/L C-Reactive Protein (<10.0) mg/L Total Protein (6.3-8.2) g/dL Arterial Blood Glucose 109 H 109 H (75-99) mg/dL Crossmatch 01/31/18 01/31/18 01/31/18 Range/Units 12:08 12:40 13:27 WBC (3.8-10.6) k/uL RBC (4.30-5.90) m/uL Hgb (13.0-17.5) gm/dL Hct (39.0-53.0) % Neutrophils # (1.3-7.7) k/uL Lymphocytes # (1.0-4.8) k/uL Monocytes # (0-1.0) k/uL PT (9.0-12.0) sec INR (<1.2) APTT (22.0-30.0) sec ABG pH 7.33 L (7.35-7.45) ABG pCO2 (35-45) mmHg ABG pO2 198 H 131 H 120 H (83-108) mmHg ABG Total CO2 26 H 26 H (19-24) mmol/L ABG O2 Saturation 99.4 H 98.8 H 98.4 H (94-97) % ABG Hematocrit 32 L (34.0-46.0) % ABG Ionized Calcium 4.4 L 4.4 L 4.4 L (4.5-5.3) mg/dL ABG Glucose 103 H 106 H 109 H (75-99) mg/dL Hemoglobin 10.5 L 11.0 L 11.3 L (13.0-17.5) gm/dL Chloride (98-107) mmol/L Carbon Dioxide (22-30) mmol/L BUN (9-20) mg/dL Glucose (74-99) mg/dL POC Glucose (mg/dL) (75-99) mg/dL Calcium (8.4-10.2) mg/dL Iron (65-175) ug/dL Ferritin (22.0-322.0) ng/mL AST (17-59) U/L ALT (21-72) U/L Alkaline Phosphatase (38-126) U/L C-Reactive Protein (<10.0) mg/L Total Protein (6.3-8.2) g/dL Arterial Blood Glucose 103 H 106 H 109 H (75-99) mg/dL Crossmatch 01/31/18 01/31/18 01/31/18 Range/Units 14:33 14:35 14:35 WBC 20.5 H (3.8-10.6) k/uL RBC 3.55 L (4.30-5.90) m/uL Hgb 11.4 L D (13.0-17.5) gm/dL Hct 34.0 L (39.0-53.0) % Neutrophils # 13.5 H (1.3-7.7) k/uL Lymphocytes # 5.8 H (1.0-4.8) k/uL Monocytes # (0-1.0) k/uL PT (9.0-12.0) sec INR (<1.2) APTT (22.0-30.0) sec ABG pH (7.35-7.45) ABG pCO2 (35-45) mmHg ABG pO2 (83-108) mmHg ABG Total CO2 (19-24) mmol/L ABG O2 Saturation (94-97) % ABG Hematocrit (34.0-46.0) % ABG Ionized Calcium (4.5-5.3) mg/dL ABG Glucose (75-99) mg/dL Hemoglobin (13.0-17.5) gm/dL Chloride 111 H (98-107) mmol/L Carbon Dioxide (22-30) mmol/L BUN 8 L (9-20) mg/dL Glucose 110 H (74-99) mg/dL POC Glucose (mg/dL) 110 H (75-99) mg/dL Calcium 8.1 L (8.4-10.2) mg/dL Iron (65-175) ug/dL Ferritin (22.0-322.0) ng/mL AST 184 H (17-59) U/L ALT 115 H (21-72) U/L Alkaline Phosphatase <20 L (38-126) U/L C-Reactive Protein (<10.0) mg/L Total Protein 5.3 L (6.3-8.2) g/dL Arterial Blood Glucose (75-99) mg/dL Crossmatch 01/31/18 01/31/18 01/31/18 Range/Units 14:35 14:37 15:02 WBC (3.8-10.6) k/uL RBC (4.30-5.90) m/uL Hgb (13.0-17.5) gm/dL Hct (39.0-53.0) % Neutrophils # (1.3-7.7) k/uL Lymphocytes # (1.0-4.8) k/uL Monocytes # (0-1.0) k/uL PT 12.7 H (9.0-12.0) sec INR 1.3 H (<1.2) APTT 30.8 H (22.0-30.0) sec ABG pH 7.31 L (7.35-7.45) ABG pCO2 51 H (35-45) mmHg ABG pO2 61 L (83-108) mmHg ABG Total CO2 27 H (19-24) mmol/L ABG O2 Saturation 88.6 L (94-97) % ABG Hematocrit (34.0-46.0) % ABG Ionized Calcium (4.5-5.3) mg/dL ABG Glucose (75-99) mg/dL Hemoglobin (13.0-17.5) gm/dL Chloride (98-107) mmol/L Carbon Dioxide (22-30) mmol/L BUN (9-20) mg/dL Glucose (74-99) mg/dL POC Glucose (mg/dL) 112 H (75-99) mg/dL Calcium (8.4-10.2) mg/dL Iron (65-175) ug/dL Ferritin (22.0-322.0) ng/mL AST (17-59) U/L ALT (21-72) U/L Alkaline Phosphatase (38-126) U/L C-Reactive Protein (<10.0) mg/L Total Protein (6.3-8.2) g/dL Arterial Blood Glucose (75-99) mg/dL Crossmatch 01/31/18 01/31/18 01/31/18 Range/Units 16:17 16:51 17:46 WBC (3.8-10.6) k/uL RBC (4.30-5.90) m/uL Hgb (13.0-17.5) gm/dL Hct (39.0-53.0) % Neutrophils # (1.3-7.7) k/uL Lymphocytes # (1.0-4.8) k/uL Monocytes # (0-1.0) k/uL PT (9.0-12.0) sec INR (<1.2) APTT (22.0-30.0) sec ABG pH 7.34 L (7.35-7.45) ABG pCO2 47 H (35-45) mmHg ABG pO2 50 L* (83-108) mmHg ABG Total CO2 27 H (19-24) mmol/L ABG O2 Saturation 82.4 L (94-97) % ABG Hematocrit (34.0-46.0) % ABG Ionized Calcium (4.5-5.3) mg/dL ABG Glucose (75-99) mg/dL Hemoglobin (13.0-17.5) gm/dL Chloride (98-107) mmol/L Carbon Dioxide (22-30) mmol/L BUN (9-20) mg/dL Glucose (74-99) mg/dL POC Glucose (mg/dL) 122 H 149 H (75-99) mg/dL Calcium (8.4-10.2) mg/dL Iron (65-175) ug/dL Ferritin (22.0-322.0) ng/mL AST (17-59) U/L ALT (21-72) U/L Alkaline Phosphatase (38-126) U/L C-Reactive Protein (<10.0) mg/L Total Protein (6.3-8.2) g/dL Arterial Blood Glucose (75-99) mg/dL Crossmatch 01/31/18 01/31/18 01/31/18 Range/Units 17:50 19:09 19:34 WBC 20.9 H (3.8-10.6) k/uL RBC 3.93 L (4.30-5.90) m/uL Hgb 12.6 L (13.0-17.5) gm/dL Hct 37.5 L (39.0-53.0) % Neutrophils # 16.5 H (1.3-7.7) k/uL Lymphocytes # (1.0-4.8) k/uL Monocytes # 1.1 H (0-1.0) k/uL PT (9.0-12.0) sec INR (<1.2) APTT (22.0-30.0) sec ABG pH (7.35-7.45) ABG pCO2 (35-45) mmHg ABG pO2 63 L (83-108) mmHg ABG Total CO2 26 H (19-24) mmol/L ABG O2 Saturation 92.0 L (94-97) % ABG Hematocrit (34.0-46.0) % ABG Ionized Calcium (4.5-5.3) mg/dL ABG Glucose (75-99) mg/dL Hemoglobin (13.0-17.5) gm/dL Chloride (98-107) mmol/L Carbon Dioxide (22-30) mmol/L BUN (9-20) mg/dL Glucose (74-99) mg/dL POC Glucose (mg/dL) 139 H (75-99) mg/dL Calcium (8.4-10.2) mg/dL Iron (65-175) ug/dL Ferritin (22.0-322.0) ng/mL AST (17-59) U/L ALT (21-72) U/L Alkaline Phosphatase (38-126) U/L C-Reactive Protein (<10.0) mg/L Total Protein (6.3-8.2) g/dL Arterial Blood Glucose (75-99) mg/dL Crossmatch 01/31/18 01/31/18 01/31/18 Range/Units 20:09 21:04 21:28 WBC 23.3 H (3.8-10.6) k/uL RBC 4.01 L (4.30-5.90) m/uL Hgb 12.8 L (13.0-17.5) gm/dL Hct 37.7 L (39.0-53.0) % Neutrophils # (1.3-7.7) k/uL Lymphocytes # (1.0-4.8) k/uL Monocytes # (0-1.0) k/uL PT (9.0-12.0) sec INR (<1.2) APTT (22.0-30.0) sec ABG pH (7.35-7.45) ABG pCO2 (35-45) mmHg ABG pO2 (83-108) mmHg ABG Total CO2 (19-24) mmol/L ABG O2 Saturation (94-97) % ABG Hematocrit (34.0-46.0) % ABG Ionized Calcium (4.5-5.3) mg/dL ABG Glucose (75-99) mg/dL Hemoglobin (13.0-17.5) gm/dL Chloride (98-107) mmol/L Carbon Dioxide (22-30) mmol/L BUN (9-20) mg/dL Glucose (74-99) mg/dL POC Glucose (mg/dL) 141 H 128 H (75-99) mg/dL Calcium (8.4-10.2) mg/dL Iron (65-175) ug/dL Ferritin (22.0-322.0) ng/mL AST (17-59) U/L ALT (21-72) U/L Alkaline Phosphatase (38-126) U/L C-Reactive Protein (<10.0) mg/L Total Protein (6.3-8.2) g/dL Arterial Blood Glucose (75-99) mg/dL Crossmatch Microbiology - Last 24 Hours (Table) 01/29/18 23:00 Urine Culture - Preliminary Urine,Clean Catch Gram Neg Bacilli 01/29/18 19:41 Nasal Screen MRSA/MSSA - Final Nasal Swab Assessment and Plan Assessment: Assessment: Status post coronary artery bypass grafting done today Acute hypoxic respiratory failure-complication postop Acute coronary syndrome, has been evaluated currently for CABG Current smoker with a 26 pack years Hypertensive Obesity Plan: This is a pleasant 42 years old male who presents because of [place]. Cardiology and Cardiothoracic surgery following the patient. Patient had CABG done today. Postop patient has been placed on mechanical ventilation. Patient developed hypoxia, will have ABGs done. Monitor lytes and vitals. DVT and GI prophylaxis. Further recommendations depending on the progress of the patient. Prognosis guarded.
--- NOTE | 2018-02-01 13:24 | P.PN ---
Subjective Progress Note Date: 02/01/18 Principal diagnosis: NSTEMI s/p CABG Mr. Castillo is a 42-year-old male with a past medical history of hypertension, hyperlipidemia, nicotine dependence, coronary artery disease with prior stenting performed in 2003 2004 in [place] coming into the hospital with a chief complaint of chest discomfort in the upper mid sternum. Patient describes it as severe tightness and heaviness and he was short of breath and diaphoretic. Patient pain was so severe that he was unable to speak at the time when he had the chest pain. In the ED patient had elevated troponins and started on IV heparin. Patient subsequently underwent cardiac cath which revealed a total occluded right coronary artery that appeared to be chronically occluded. There is also a complex lesion and in-stent restenosis of the proximal LAD. So he was recommended to get a coronary artery bypass graft that is scheduled for tomorrow morning. Patient has risk factors of smoking for the past 26 years almost 1 pack per day. 02/01/18 - patient is postop day 1. Patient is in the ICU currently on mechanical ventilation. He is sedated with propofol, Nimbex and fentanyl. Patient was hypoxemic on 100% FiO2 yesterday, which could be due to acute lung injury. So his ventilator settings have been adjusted by Dr. Gipson. He is still on Cardizem drip. Active Medications Hydrocodone Bitart/Acetaminophen (Wray 5-325) 2 each PO Q4HR PRN PRN Reason: Severe Pain Hydrocodone Bitart/Acetaminophen (Wray 5-325) 1 each PO Q4HR PRN PRN Reason: Moderate Pain Albuterol/Ipratropium (Duoneb 0.5 Mg-3 Mg/3 Ml Soln) 3 ml INHALATION RT-Q2H PRN PRN Reason: Shortness Of Breath Or Wheezing Albuterol/Ipratropium (Duoneb 0.5 Mg-3 Mg/3 Ml Soln) 3 ml INHALATION RT-QID [facility] Last Admin: 02/01/18 08:11 Dose: 3 ml Artificial Tears (Artificial Tear Drops) 2 drops BOTH EYES Q4HR [facility] Last Admin: 02/01/18 11:27 Dose: 2 drops Aspirin (Aspirin) 325 mg PO DAILY [facility] Last Admin: 02/01/18 08:11 Dose: 325 mg Atorvastatin Calcium (Lipitor) 40 mg PO DAILY [facility] Last Admin: 02/01/18 08:12 Dose: 40 mg Benzocaine/Menthol (Cepacol Lozenge) 1 each MUCOUS MEM Q2H PRN PRN Reason: Sore Throat Bisacodyl (Dulcolax) 10 mg RECTAL DAILY PRN PRN Reason: Constipation Chlorhexidine Gluconate (Peridex) 15 ml MUCOUS MEM BID [facility] Clopidogrel Bisulfate (Plavix) 75 mg PO DAILY [facility] Last Admin: 02/01/18 08:12 Dose: 75 mg Heparin Sodium (Porcine) (Heparin) 5,000 unit SQ Q8HR [facility] Last Admin: 02/01/18 08:12 Dose: 5,000 unit Acetaminophen 1,000 mg/ IV (Solution) 100 mls @ 400 mls/hr IVPB Q6H [facility] Stop: 02/01/18 16:01 Last Admin: 02/01/18 10:12 Dose: 400 mls/hr Albumin Human 250 ml/ IV (Solution) 250 mls @ 250 mls/hr IVPB Q1HR PRN PRN Reason: For Volume Stop: 02/02/18 14:38 Amiodarone HCl 150 mg/ (Dextrose/Water) 103 mls @ 618 mls/hr IV .Q10M PRN; Protocol PRN Reason: Per protocol Amiodarone HCl 450 mg/ (Dextrose/Water) 259 mls @ 34.53 mls/hr IV .Q7H31M PRN; Protocol PRN Reason: Per Protocol Calcium Chloride 1,000 mg/ (Sodium Chloride) 110 mls @ 100 mls/hr IV ONCE PRN PRN Reason: Ionized Calcium less than 4.4 Stop: 02/03/18 14:38 Clevidipine 25 mg/ IV Solution 50 mls @ 2 mls/hr IV .Q24H [facility]; Protocol Last Titration: 02/01/18 08:05 Dose: 0 mg/hr, 0 mls/hr Insulin Human Regular 100 unit (/ Sodium Chloride) 101 mls @ 0 mls/hr IV .Q0M [facility]; Protocol Last Titration: 02/01/18 12:07 Dose: 0 unit/hr, 0 mls/hr Lactated Ringer's (Lactated Ringers) 1,000 mls @ 50 mls/hr IV .Q20H [facility] Last Admin: 02/01/18 10:31 Dose: 50 mls/hr Nitroglycerin/Dextrose 50 mg/ (IV Solution) 250 mls @ 1.5 mls/hr IV .Q24H [facility] Last Infusion: 02/01/18 10:44 Dose: 0 mcg/min, 0 mls/hr Propofol 1,000 mg/ IV Solution 100 mls @ 0 mls/hr IV .Q0M [facility]; Protocol Last Admin: 02/01/18 12:54 Dose: 60 mcg/kg/min, 38.62 mls/hr Diltiazem HCl 50 mg/ Sodium (Chloride) 50 mls @ 10 mls/hr IV .Q5H [facility] Last Admin: 02/01/18 11:24 Dose: 10 mg/hr, 10 mls/hr Fentanyl Citrate 2,500 mcg/ (Sodium Chloride) 250 mls @ 5 mls/hr IV .Q24H [facility] Last Admin: 01/31/18 18:52 Dose: 50 mcg/hr, 5 mls/hr Cisatracurium Besylate 200 mg/ (Sodium Chloride) 200 mls @ 6.05 mls/hr IV .Q24H [facility]; Protocol Last Titration: 02/01/18 08:04 Dose: 0.4 mcg/kg/min, 2.42 mls/hr Ceftriaxone Sodium 2,000 mg/ (Sodium Chloride) 100 mls @ 100 mls/hr IVPB Q24HR [facility] Last Admin: 02/01/18 11:27 Dose: 100 mls/hr Magnesium Hydroxide (Milk Of Magnesia) 2,400 mg PO BID PRN PRN Reason: Constipation Methylprednisolone Sodium Succinate (Solu-Medrol) 60 mg IV Q6HR [facility] Last Admin: 02/01/18 11:27 Dose: 60 mg Metoclopramide HCl (Reglan) 10 mg IVP Q4H PRN PRN Reason: Nausea And Vomiting Metoprolol Tartrate (Lopressor) 12.5 mg PO BID [facility] Last Admin: 02/01/18 08:12 Dose: 12.5 mg Miscellaneous Information (Magnesium Per Protocol) 1 each MISCELLANE DAILY PRN ; Protocol PRN Reason: Per Protocol Miscellaneous Information (Phosphorus Per Protocol) 1 each MISCELLANE DAILY PRN ; Protocol PRN Reason: Per Protocol Miscellaneous Information (Potassium Per Protocol) 1 each MISCELLANE DAILY PRN ; Protocol PRN Reason: Per Protocol Morphine Sulfate (Morphine Sulfate (Inj)) 2 mg IVP Q2H PRN PRN Reason: Severe Pain Last Admin: 01/31/18 21:36 Dose: 2 mg Mupirocin (Bactroban Oint) 1 applic NASAL BID [facility] Stop: 02/03/18 21:01 Last Admin: 02/01/18 08:13 Dose: 1 applic Ondansetron HCl (Zofran) 4 mg IVP Q6HR PRN PRN Reason: Nausea And Vomiting Oxycodone HCl (Oxyir) 10 mg PO Q4H PRN PRN Reason: Severe Pain Stop: 02/01/18 14:38 Oxycodone HCl (Oxyir) 5 mg PO Q4H PRN PRN Reason: Moderate Pain Stop: 02/01/18 14:38 Pantoprazole Sodium (Protonix) 40 mg IVP DAILY [facility] Last Admin: 02/01/18 08:11 Dose: 40 mg Senna/Docusate Sodium (Senokot-S) 2 each PO HS [facility] Sodium Chloride (Saline Flush) 10 ml IV BID [facility] Last Admin: 02/01/18 10:23 Dose: Not Given Objective - Vital Signs Vital signs: Vital Signs Temp 100.9 F H 02/01/18 04:00 Pulse 70 02/01/18 12:00 Resp 28 H 02/01/18 12:00 BP 105/65 02/01/18 12:00 Pulse Ox 93 L 02/01/18 12:00 Intake & Output 01/31/18 02/01/18 02/01/18 19:59 06:59 18:59 Intake Total 1040.453 Output Total 1322 Balance -281.547 Weight 107.3 kg Intake: IV 534 ACETAMINOPHEN IV (For NPO 100 ) 1,000 mg In Empty Bag 1 bag @ 400 mls/hr IVPB Q6H [facility] Rx#:[id number] Cardiac Output 80 Lactated Ringers 1,000 ml 300 @ 50 mls/hr IV .Q20H [facility] Rx#:[id number] Pressure Bag 54 ceFAZolin 2 gm In Sodium Chloride 0.9% 30 ml @ 60 mls/hr IVPB ONCE ONE Rx#: [id number] Intake, IV Titration 506.453 Amount ACETAMINOPHEN IV (For NPO ) 1,000 mg In Empty Bag 1 bag @ 400 mls/hr IVPB Q6H [facility] Rx#:[id number] Cisatracurium 200 mg In 30.301 Sodium Chloride 0.9% 180 ml @ 1 MCG/KG/MIN 6.05 mls/hr IV .Q24H [facility] Rx#: [id number] Clevidipine Butyrate 25 12 mg In Empty Bag 1 bag @ 1 MG/HR 2 mls/hr IV .Q24H [facility] Rx#:[id number] Diltiazem 50 mg In Sodium 49.834 Chloride 0.9% 40 ml @ 10 MG/HR 10 mls/hr IV .Q5H [facility] Rx#:[id number] Insulin Regular 100 unit 2.261 In Sodium Chloride 0.9% 100 ml @ Per Protocol IV .Q0M [facility] Rx#:[id number] Lactated Ringers 1,000 ml @ 50 mls/hr IV .Q20H [facility] Rx#:[id number] Magnesium Sulfate-D5w Pmx 1 gm In Dextrose/Water 1 100ml.bag @ 100 mls/hr IVPB Q1H [facility] Rx#: [id number] Nitroglycerin-D5w Pmx 50 31.85 mg In Dextrose/Water 1 250ml.bag @ 5 MCG/MIN 1.5 mls/hr IV .Q24H [facility] Rx#: [id number] Propofol 1,000 mg In 280.207 Empty Bag 1 bag @ Titrate IV .Q0M [facility] Rx#: [id number] ceFAZolin 2 gm In Sodium Chloride 0.9% 30 ml @ 60 mls/hr IVPB ONCE ONE Rx#: [id number] cefTRIAXone 2,000 mg In 100 Sodium Chloride 0.9% 100 ml @ 100 mls/hr IVPB Q24HR [facility] Rx#:[id number] Output: Chest Tube Drainage 77 bilateral mediastinal 45 left pleural 32 Gastric Drainage 150 Drainage left forearm Urine 1095 Estimated Blood Loss Other: Voiding Method Indwelling Catheter ABP, PAP, CO, CI - Last Documented Arterial Blood Pressure 109/67 Pulmonary Artery Pressure 38/24 Cardiac Output 4.7 Cardiac Index 2.1 - Exam GENERAL: Patient is mechanically ventilated and sedated. HEENT: Endotracheal tube and orogastric tube in place CARDIOVASCULAR: S1 and S2 present. No murmurs, rubs, or gallops. PULMONARY: Diminished breath sounds at the lower lung bases. No crackles or wheezes. ABDOMEN: Soft, nontender, nondistended, normoactive bowel sounds. No palpable organomegaly. EXTREMITIES: Mild cyanosis of the ear lobules. No edema. NEUROLOGICAL: Could not be assessed as he is sedated SKIN: No rashes. - Labs CBC & Chem 7: 02/01/18 04:51 02/01/18 04:51 Labs: Abnormal Lab Results - Last 24 Hours (Table) 01/30/18 01/31/18 01/31/18 Range/Units 08:39 09:03 10:04 WBC (3.8-10.6) k/uL RBC (4.30-5.90) m/uL Hgb (13.0-17.5) gm/dL Hct (39.0-53.0) % Neutrophils # (1.3-7.7) k/uL Lymphocytes # (1.0-4.8) k/uL Monocytes # (0-1.0) k/uL PT (9.0-12.0) sec INR (<1.2) APTT (22.0-30.0) sec ABG pH (7.35-7.45) ABG pCO2 (35-45) mmHg ABG pO2 (83-108) mmHg ABG Total CO2 26 H 26 H (19-24) mmol/L ABG O2 Saturation (94-97) % ABG Hematocrit (34.0-46.0) % ABG Ionized Calcium (4.5-5.3) mg/dL ABG Glucose 109 H (75-99) mg/dL Hemoglobin (13.0-17.5) gm/dL Chloride (98-107) mmol/L Carbon Dioxide (22-30) mmol/L BUN (9-20) mg/dL Creatinine (0.66-1.25) mg/dL Glucose (74-99) mg/dL POC Glucose (mg/dL) (75-99) mg/dL Calcium (8.4-10.2) mg/dL Magnesium (1.6-2.3) mg/dL AST (17-59) U/L ALT (21-72) U/L Alkaline Phosphatase (38-126) U/L Total Protein (6.3-8.2) g/dL Albumin (3.5-5.0) g/dL Arterial Blood Glucose 109 H (75-99) mg/dL Crossmatch See Detail 01/31/18 01/31/18 01/31/18 Range/Units 11:08 12:08 12:40 WBC (3.8-10.6) k/uL RBC (4.30-5.90) m/uL Hgb (13.0-17.5) gm/dL Hct (39.0-53.0) % Neutrophils # (1.3-7.7) k/uL Lymphocytes # (1.0-4.8) k/uL Monocytes # (0-1.0) k/uL PT (9.0-12.0) sec INR (<1.2) APTT (22.0-30.0) sec ABG pH 7.34 L 7.33 L (7.35-7.45) ABG pCO2 (35-45) mmHg ABG pO2 126 H 198 H 131 H (83-108) mmHg ABG Total CO2 25 H 26 H (19-24) mmol/L ABG O2 Saturation 98.6 H 99.4 H 98.8 H (94-97) % ABG Hematocrit 32 L (34.0-46.0) % ABG Ionized Calcium 4.4 L 4.4 L (4.5-5.3) mg/dL ABG Glucose 109 H 103 H 106 H (75-99) mg/dL Hemoglobin 10.5 L 11.0 L (13.0-17.5) gm/dL Chloride (98-107) mmol/L Carbon Dioxide (22-30) mmol/L BUN (9-20) mg/dL Creatinine (0.66-1.25) mg/dL Glucose (74-99) mg/dL POC Glucose (mg/dL) (75-99) mg/dL Calcium (8.4-10.2) mg/dL Magnesium (1.6-2.3) mg/dL AST (17-59) U/L ALT (21-72) U/L Alkaline Phosphatase (38-126) U/L Total Protein (6.3-8.2) g/dL Albumin (3.5-5.0) g/dL Arterial Blood Glucose 109 H 103 H 106 H (75-99) mg/dL Crossmatch 01/31/18 01/31/18 01/31/18 Range/Units 13:27 14:33 14:35 WBC 20.5 H (3.8-10.6) k/uL RBC 3.55 L (4.30-5.90) m/uL Hgb 11.4 L D (13.0-17.5) gm/dL Hct 34.0 L (39.0-53.0) % Neutrophils # 13.5 H (1.3-7.7) k/uL Lymphocytes # 5.8 H (1.0-4.8) k/uL Monocytes # (0-1.0) k/uL PT (9.0-12.0) sec INR (<1.2) APTT (22.0-30.0) sec ABG pH (7.35-7.45) ABG pCO2 (35-45) mmHg ABG pO2 120 H (83-108) mmHg ABG Total CO2 26 H (19-24) mmol/L ABG O2 Saturation 98.4 H (94-97) % ABG Hematocrit (34.0-46.0) % ABG Ionized Calcium 4.4 L (4.5-5.3) mg/dL ABG Glucose 109 H (75-99) mg/dL Hemoglobin 11.3 L (13.0-17.5) gm/dL Chloride (98-107) mmol/L Carbon Dioxide (22-30) mmol/L BUN (9-20) mg/dL Creatinine (0.66-1.25) mg/dL Glucose (74-99) mg/dL POC Glucose (mg/dL) 110 H (75-99) mg/dL Calcium (8.4-10.2) mg/dL Magnesium (1.6-2.3) mg/dL AST (17-59) U/L ALT (21-72) U/L Alkaline Phosphatase (38-126) U/L Total Protein (6.3-8.2) g/dL Albumin (3.5-5.0) g/dL Arterial Blood Glucose 109 H (75-99) mg/dL Crossmatch 01/31/18 01/31/18 01/31/18 Range/Units 14:35 14:35 14:37 WBC (3.8-10.6) k/uL RBC (4.30-5.90) m/uL Hgb (13.0-17.5) gm/dL Hct (39.0-53.0) % Neutrophils # (1.3-7.7) k/uL Lymphocytes # (1.0-4.8) k/uL Monocytes # (0-1.0) k/uL PT 12.7 H (9.0-12.0) sec INR 1.3 H (<1.2) APTT 30.8 H (22.0-30.0) sec ABG pH 7.31 L (7.35-7.45) ABG pCO2 51 H (35-45) mmHg ABG pO2 61 L (83-108) mmHg ABG Total CO2 27 H (19-24) mmol/L ABG O2 Saturation 88.6 L (94-97) % ABG Hematocrit (34.0-46.0) % ABG Ionized Calcium (4.5-5.3) mg/dL ABG Glucose (75-99) mg/dL Hemoglobin (13.0-17.5) gm/dL Chloride 111 H (98-107) mmol/L Carbon Dioxide (22-30) mmol/L BUN 8 L (9-20) mg/dL Creatinine (0.66-1.25) mg/dL Glucose 110 H (74-99) mg/dL POC Glucose (mg/dL) (75-99) mg/dL Calcium 8.1 L (8.4-10.2) mg/dL Magnesium (1.6-2.3) mg/dL AST 184 H (17-59) U/L ALT 115 H (21-72) U/L Alkaline Phosphatase <20 L (38-126) U/L Total Protein 5.3 L (6.3-8.2) g/dL Albumin (3.5-5.0) g/dL Arterial Blood Glucose (75-99) mg/dL Crossmatch 01/31/18 01/31/18 01/31/18 Range/Units 15:02 16:17 16:51 WBC (3.8-10.6) k/uL RBC (4.30-5.90) m/uL Hgb (13.0-17.5) gm/dL Hct (39.0-53.0) % Neutrophils # (1.3-7.7) k/uL Lymphocytes # (1.0-4.8) k/uL Monocytes # (0-1.0) k/uL PT (9.0-12.0) sec INR (<1.2) APTT (22.0-30.0) sec ABG pH 7.34 L (7.35-7.45) ABG pCO2 47 H (35-45) mmHg ABG pO2 50 L* (83-108) mmHg ABG Total CO2 27 H (19-24) mmol/L ABG O2 Saturation 82.4 L (94-97) % ABG Hematocrit (34.0-46.0) % ABG Ionized Calcium (4.5-5.3) mg/dL ABG Glucose (75-99) mg/dL Hemoglobin (13.0-17.5) gm/dL Chloride (98-107) mmol/L Carbon Dioxide (22-30) mmol/L BUN (9-20) mg/dL Creatinine (0.66-1.25) mg/dL Glucose (74-99) mg/dL POC Glucose (mg/dL) 112 H 122 H (75-99) mg/dL Calcium (8.4-10.2) mg/dL Magnesium (1.6-2.3) mg/dL AST (17-59) U/L ALT (21-72) U/L Alkaline Phosphatase (38-126) U/L Total Protein (6.3-8.2) g/dL Albumin (3.5-5.0) g/dL Arterial Blood Glucose (75-99) mg/dL Crossmatch 01/31/18 01/31/18 01/31/18 Range/Units 17:46 17:50 19:09 WBC 20.9 H (3.8-10.6) k/uL RBC 3.93 L (4.30-5.90) m/uL Hgb 12.6 L (13.0-17.5) gm/dL Hct 37.5 L (39.0-53.0) % Neutrophils # 16.5 H (1.3-7.7) k/uL Lymphocytes # (1.0-4.8) k/uL Monocytes # 1.1 H (0-1.0) k/uL PT (9.0-12.0) sec INR (<1.2) APTT (22.0-30.0) sec ABG pH (7.35-7.45) ABG pCO2 (35-45) mmHg ABG pO2 (83-108) mmHg ABG Total CO2 (19-24) mmol/L ABG O2 Saturation (94-97) % ABG Hematocrit (34.0-46.0) % ABG Ionized Calcium (4.5-5.3) mg/dL ABG Glucose (75-99) mg/dL Hemoglobin (13.0-17.5) gm/dL Chloride (98-107) mmol/L Carbon Dioxide (22-30) mmol/L BUN (9-20) mg/dL Creatinine (0.66-1.25) mg/dL Glucose (74-99) mg/dL POC Glucose (mg/dL) 149 H 139 H (75-99) mg/dL Calcium (8.4-10.2) mg/dL Magnesium (1.6-2.3) mg/dL AST (17-59) U/L ALT (21-72) U/L Alkaline Phosphatase (38-126) U/L Total Protein (6.3-8.2) g/dL Albumin (3.5-5.0) g/dL Arterial Blood Glucose (75-99) mg/dL Crossmatch 01/31/18 01/31/18 01/31/18 Range/Units 19:34 20:09 21:04 WBC (3.8-10.6) k/uL RBC (4.30-5.90) m/uL Hgb (13.0-17.5) gm/dL Hct (39.0-53.0) % Neutrophils # (1.3-7.7) k/uL Lymphocytes # (1.0-4.8) k/uL Monocytes # (0-1.0) k/uL PT (9.0-12.0) sec INR (<1.2) APTT (22.0-30.0) sec ABG pH (7.35-7.45) ABG pCO2 (35-45) mmHg ABG pO2 63 L (83-108) mmHg ABG Total CO2 26 H (19-24) mmol/L ABG O2 Saturation 92.0 L (94-97) % ABG Hematocrit (34.0-46.0) % ABG Ionized Calcium (4.5-5.3) mg/dL ABG Glucose (75-99) mg/dL Hemoglobin (13.0-17.5) gm/dL Chloride (98-107) mmol/L Carbon Dioxide (22-30) mmol/L BUN (9-20) mg/dL Creatinine (0.66-1.25) mg/dL Glucose (74-99) mg/dL POC Glucose (mg/dL) 141 H 128 H (75-99) mg/dL Calcium (8.4-10.2) mg/dL Magnesium (1.6-2.3) mg/dL AST (17-59) U/L ALT (21-72) U/L Alkaline Phosphatase (38-126) U/L Total Protein (6.3-8.2) g/dL Albumin (3.5-5.0) g/dL Arterial Blood Glucose (75-99) mg/dL Crossmatch 01/31/18 01/31/18 01/31/18 Range/Units 21:28 21:28 22:00 WBC 23.3 H (3.8-10.6) k/uL RBC 4.01 L (4.30-5.90) m/uL Hgb 12.8 L (13.0-17.5) gm/dL Hct 37.7 L (39.0-53.0) % Neutrophils # (1.3-7.7) k/uL Lymphocytes # (1.0-4.8) k/uL Monocytes # (0-1.0) k/uL PT (9.0-12.0) sec INR (<1.2) APTT (22.0-30.0) sec ABG pH (7.35-7.45) ABG pCO2 (35-45) mmHg ABG pO2 (83-108) mmHg ABG Total CO2 (19-24) mmol/L ABG O2 Saturation (94-97) % ABG Hematocrit (34.0-46.0) % ABG Ionized Calcium (4.5-5.3) mg/dL ABG Glucose (75-99) mg/dL Hemoglobin (13.0-17.5) gm/dL Chloride 109 H (98-107) mmol/L Carbon Dioxide (22-30) mmol/L BUN 7 L (9-20) mg/dL Creatinine 0.60 L (0.66-1.25) mg/dL Glucose 118 H (74-99) mg/dL POC Glucose (mg/dL) 128 H (75-99) mg/dL Calcium (8.4-10.2) mg/dL Magnesium 2.7 H (1.6-2.3) mg/dL AST (17-59) U/L ALT (21-72) U/L Alkaline Phosphatase (38-126) U/L Total Protein (6.3-8.2) g/dL Albumin (3.5-5.0) g/dL Arterial Blood Glucose (75-99) mg/dL Crossmatch 01/31/18 01/31/18 02/01/18 Range/Units 22:48 23:44 00:08 WBC (3.8-10.6) k/uL RBC (4.30-5.90) m/uL Hgb (13.0-17.5) gm/dL Hct (39.0-53.0) % Neutrophils # (1.3-7.7) k/uL Lymphocytes # (1.0-4.8) k/uL Monocytes # (0-1.0) k/uL PT (9.0-12.0) sec INR (<1.2) APTT (22.0-30.0) sec ABG pH 7.34 L (7.35-7.45) ABG pCO2 46 H (35-45) mmHg ABG pO2 61 L (83-108) mmHg ABG Total CO2 26 H (19-24) mmol/L ABG O2 Saturation 90.0 L (94-97) % ABG Hematocrit (34.0-46.0) % ABG Ionized Calcium (4.5-5.3) mg/dL ABG Glucose (75-99) mg/dL Hemoglobin (13.0-17.5) gm/dL Chloride (98-107) mmol/L Carbon Dioxide (22-30) mmol/L BUN (9-20) mg/dL Creatinine (0.66-1.25) mg/dL Glucose (74-99) mg/dL POC Glucose (mg/dL) 123 H 125 H (75-99) mg/dL Calcium (8.4-10.2) mg/dL Magnesium (1.6-2.3) mg/dL AST (17-59) U/L ALT (21-72) U/L Alkaline Phosphatase (38-126) U/L Total Protein (6.3-8.2) g/dL Albumin (3.5-5.0) g/dL Arterial Blood Glucose (75-99) mg/dL Crossmatch 02/01/18 02/01/18 02/01/18 Range/Units 01:15 EST 02:05 02:52 WBC (3.8-10.6) k/uL RBC (4.30-5.90) m/uL Hgb (13.0-17.5) gm/dL Hct (39.0-53.0) % Neutrophils # (1.3-7.7) k/uL Lymphocytes # (1.0-4.8) k/uL Monocytes # (0-1.0) k/uL PT (9.0-12.0) sec INR (<1.2) APTT (22.0-30.0) sec ABG pH (7.35-7.45) ABG pCO2 (35-45) mmHg ABG pO2 186 H (83-108) mmHg ABG Total CO2 25 H (19-24) mmol/L ABG O2 Saturation 99.0 H (94-97) % ABG Hematocrit (34.0-46.0) % ABG Ionized Calcium (4.5-5.3) mg/dL ABG Glucose (75-99) mg/dL Hemoglobin (13.0-17.5) gm/dL Chloride (98-107) mmol/L Carbon Dioxide (22-30) mmol/L BUN (9-20) mg/dL Creatinine (0.66-1.25) mg/dL Glucose (74-99) mg/dL POC Glucose (mg/dL) 108 H 115 H (75-99) mg/dL Calcium (8.4-10.2) mg/dL Magnesium (1.6-2.3) mg/dL AST (17-59) U/L ALT (21-72) U/L Alkaline Phosphatase (38-126) U/L Total Protein (6.3-8.2) g/dL Albumin (3.5-5.0) g/dL Arterial Blood Glucose (75-99) mg/dL Crossmatch 02/01/18 02/01/1802/01/18 Range/Units 03:05 04:51 04:51 WBC 18.0 H (3.8-10.6) k/uL RBC 4.11 L (4.30-5.90) m/uL Hgb 12.9 L (13.0-17.5) gm/dL Hct (39.0-53.0) % Neutrophils # 13.8 H (1.3-7.7) k/uL Lymphocytes # (1.0-4.8) k/uL Monocytes # 1.2 H (0-1.0) k/uL PT (9.0-12.0) sec INR 1.2 H (<1.2) APTT (22.0-30.0) sec ABG pH (7.35-7.45) ABG pCO2 (35-45) mmHg ABG pO2 (83-108) mmHg ABG Total CO2 (19-24) mmol/L ABG O2 Saturation (94-97) % ABG Hematocrit (34.0-46.0) % ABG Ionized Calcium (4.5-5.3) mg/dL ABG Glucose (75-99) mg/dL Hemoglobin (13.0-17.5) gm/dL Chloride (98-107) mmol/L Carbon Dioxide (22-30) mmol/L BUN (9-20) mg/dL Creatinine (0.66-1.25) mg/dL Glucose (74-99) mg/dL POC Glucose (mg/dL) 108 H (75-99) mg/dL Calcium (8.4-10.2) mg/dL Magnesium (1.6-2.3) mg/dL AST (17-59) U/L ALT (21-72) U/L Alkaline Phosphatase (38-126) U/L Total Protein (6.3-8.2) g/dL Albumin (3.5-5.0) g/dL Arterial Blood Glucose (75-99) mg/dL Crossmatch 02/01/18 02/01/18 02/01/18 Range/Units 04:51 04:59 06:22 WBC (3.8-10.6) k/uL RBC (4.30-5.90) m/uL Hgb (13.0-17.5) gm/dL Hct (39.0-53.0) % Neutrophils # (1.3-7.7) k/uL Lymphocytes # (1.0-4.8) k/uL Monocytes # (0-1.0) k/uL PT (9.0-12.0) sec INR (<1.2) APTT (22.0-30.0) sec ABG pH (7.35-7.45) ABG pCO2 (35-45) mmHg ABG pO2 (83-108) mmHg ABG Total CO2 (19-24) mmol/L ABG O2 Saturation (94-97) % ABG Hematocrit (34.0-46.0) % ABG Ionized Calcium (4.5-5.3) mg/dL ABG Glucose (75-99) mg/dL Hemoglobin (13.0-17.5) gm/dL Chloride 111 H (98-107) mmol/L Carbon Dioxide 21 L (22-30) mmol/L BUN 8 L (9-20) mg/dL Creatinine (0.66-1.25) mg/dL Glucose 107 H (74-99) mg/dL POC Glucose (mg/dL) 105 H 109 H (75-99) mg/dL Calcium (8.4-10.2) mg/dL Magnesium 2.4 H (1.6-2.3) mg/dL AST 95 H (17-59) U/L ALT 105 H (21-72) U/L Alkaline Phosphatase (38-126) U/L Total Protein 5.5 L (6.3-8.2) g/dL Albumin 3.4 L (3.5-5.0) g/dL Arterial Blood Glucose (75-99) mg/dL Crossmatch 02/01/18 02/01/18 02/01/18 Range/Units 06:56 07:05 07:57 WBC (3.8-10.6) k/uL RBC (4.30-5.90) m/uL Hgb (13.0-17.5) gm/dL Hct (39.0-53.0) % Neutrophils # (1.3-7.7) k/uL Lymphocytes # (1.0-4.8) k/uL Monocytes # (0-1.0) k/uL PT (9.0-12.0) sec INR (<1.2) APTT (22.0-30.0) sec ABG pH (7.35-7.45) ABG pCO2 (35-45) mmHg ABG pO2 77 L (83-108) mmHg ABG Total CO2 26 H (19-24) mmol/L ABG O2 Saturation (94-97) % ABG Hematocrit (34.0-46.0) % ABG Ionized Calcium (4.5-5.3) mg/dL ABG Glucose (75-99) mg/dL Hemoglobin (13.0-17.5) gm/dL Chloride (98-107) mmol/L Carbon Dioxide (22-30) mmol/L BUN (9-20) mg/dL Creatinine (0.66-1.25) mg/dL Glucose (74-99) mg/dL POC Glucose (mg/dL) 112 H 121 H (75-99) mg/dL Calcium (8.4-10.2) mg/dL Magnesium (1.6-2.3) mg/dL AST (17-59) U/L ALT (21-72) U/L Alkaline Phosphatase (38-126) U/L Total Protein (6.3-8.2) g/dL Albumin (3.5-5.0) g/dL Arterial Blood Glucose (75-99) mg/dL Crossmatch 02/01/18 02/01/18 02/01/18 Range/Units 09:07 10:07 10:07 WBC (3.8-10.6) k/uL RBC (4.30-5.90) m/uL Hgb (13.0-17.5) gm/dL Hct (39.0-53.0) % Neutrophils # (1.3-7.7) k/uL Lymphocytes # (1.0-4.8) k/uL Monocytes # (0-1.0) k/uL PT (9.0-12.0) sec INR (<1.2) APTT (22.0-30.0) sec ABG pH (7.35-7.45) ABG pCO2 (35-45) mmHg ABG pO2 70 L (83-108) mmHg ABG Total CO2 26 H (19-24) mmol/L ABG O2 Saturation 93.7 L (94-97) % ABG Hematocrit (34.0-46.0) % ABG Ionized Calcium (4.5-5.3) mg/dL ABG Glucose (75-99) mg/dL Hemoglobin (13.0-17.5) gm/dL Chloride (98-107) mmol/L Carbon Dioxide (22-30) mmol/L BUN (9-20) mg/dL Creatinine (0.66-1.25) mg/dL Glucose (74-99) mg/dL POC Glucose (mg/dL) 126 H 143 H (75-99) mg/dL Calcium (8.4-10.2) mg/dL Magnesium (1.6-2.3) mg/dL AST (17-59) U/L ALT (21-72) U/L Alkaline Phosphatase (38-126) U/L Total Protein (6.3-8.2) g/dL Albumin (3.5-5.0) g/dL Arterial Blood Glucose (75-99) mg/dL Crossmatch 02/01/18 02/01/18 Range/Units 11:29 12:06 WBC (3.8-10.6) k/uL RBC (4.30-5.90) m/uL Hgb (13.0-17.5) gm/dL Hct (39.0-53.0) % Neutrophils # (1.3-7.7) k/uL Lymphocytes # (1.0-4.8) k/uL Monocytes # (0-1.0) k/uL PT (9.0-12.0) sec INR (<1.2) APTT (22.0-30.0) sec ABG pH (7.35-7.45) ABG pCO2 (35-45) mmHg ABG pO2 (83-108) mmHg ABG Total CO2 (19-24) mmol/L ABG O2 Saturation (94-97) % ABG Hematocrit (34.0-46.0) % ABG Ionized Calcium (4.5-5.3) mg/dL ABG Glucose (75-99) mg/dL Hemoglobin (13.0-17.5) gm/dL Chloride (98-107) mmol/L Carbon Dioxide (22-30) mmol/L BUN (9-20) mg/dL Creatinine (0.66-1.25) mg/dL Glucose (74-99) mg/dL POC Glucose (mg/dL) 150 H 122 H (75-99) mg/dL Calcium (8.4-10.2) mg/dL Magnesium (1.6-2.3) mg/dL AST (17-59) U/L ALT (21-72) U/L Alkaline Phosphatase (38-126) U/L Total Protein (6.3-8.2) g/dL Albumin (3.5-5.0) g/dL Arterial Blood Glucose (75-99) mg/dL Crossmatch Microbiology - Last 24 Hours (Table) 01/29/18 23:00 Urine Culture - Final Urine,Clean Catch Klebsiella pneumoniae 01/29/18 19:41 Nasal Screen MRSA/MSSA - Final Nasal Swab Assessment and Plan Assessment: Assessment: Status post coronary artery bypass grafting - postop day 1 Acute hypoxic respiratory failure-complication postop Acute coronary syndrome, has been evaluated currently for CABG Current smoker with a 26 pack years Hypertensive Obesity Plan: This is a pleasant 42 years old male who presents because of CO. Cardiology and Cardiothoracic surgery following the patient. Patient had CABG done today. Postop patient has been placed on mechanical ventilation and he developed hypoxia. ABG done showing the same. So this is a picture of ALD/ARDS. Dr. Gipson on board following the patient closely and making changes in his ventilator settings. Monitor lytes and vitals. DVT and GI prophylaxis. Further recommendations depending on the progress of the patient. Prognosis guarded.
[2018-02-01 14:28] LABS: Glucose,Whole Blood 123 mg/dL (75-99)
[2018-02-01] MEDS: NITROGLYCERIN-D5W PMX 50 MG in DEXTROSE/WATER 1 250ML.BAG IV SCH (14:37)
[2018-02-01 15:29] LABS: Glucose,Whole Blood 140 mg/dL (75-99)
[2018-02-01 16:25] LABS: Glucose,Whole Blood 132 mg/dL (75-99)
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
[2018-02-01 18:08] LABS: Glucose,Whole Blood 158 mg/dL (75-99)
[2018-02-01] MEDS: fentaNYL (PF) 2,500 MCG in SODIUM CHLORIDE 0.9% 200 ML IV SCH (18:58)
[2018-02-01 20:21] LABS: Glucose,Whole Blood 141 mg/dL (75-99)
[2018-02-01] MEDS: MILRINONE-D5W PMX 20 MG in DEXTROSE/WATER 1 100ML.BAG IV SCH (20:39)
[2018-02-01] MEDS: CHLORHEXIDINE GLUCONATE 15 ML CUP MUCOUS MEM SCH (20:52)
[2018-02-01] MEDS: CISATRACURIUM 200 MG in SODIUM CHLORIDE 0.9% 180 ML IV SCH (20:55)
[2018-02-01] MEDS: SENNOSIDES-DOCUSATE SODIUM 1 EACH TAB PO SCH (21:12)
[2018-02-01 22:04] LABS: Glucose,Whole Blood 162 mg/dL (75-99)
[2018-02-01] MEDS ORDERED: CISATRACURIUM 2 MG/ML 5 ML VIAL IV ONE (22:17)
[2018-02-01 22:53] LABS: ABG Base Excess -0.4 mmol/L; ABG HCO3 25 mmol/L (21-25); ABG Oxygen Saturation 88.9 % (94-97); ABG PCO2 47 mmHg (35-45); ABG PH 7.34 (7.35-7.45); ABG TCO2 27 mmol/L (19-24)
[2018-02-01 22:56] LABS: ABG PO2 58 mmHg (83-108)
--- NOTE | 2018-02-01 23:01 | XR ---
EXAMINATION TYPE: XR chest 1V portable DATE OF EXAM: 02/01/2018 COMPARISON: Today HISTORY: Hypoxemia. TECHNIQUE: Single frontal view of the chest is obtained. FINDINGS: Endotracheal tube is 4.5 cm from the gretel. Nasogastric tube with the tip near the gastro esophageal junction. There is right jugular catheter with the tip in the main pulmonary artery. There is no heart failure. There appears to be a left-sided chest tube. There are sternal wires. There is some mild atelectasis at the lung bases. IMPRESSION: Endotracheal tube in fairly good position. No heart failure. No change compared to exam this morning.
[2018-02-01 23:25] LABS: Glucose,Whole Blood 153 mg/dL (75-99)
[2018-02-02 00:11] LABS: Glucose,Whole Blood 152 mg/dL (75-99)
[2018-02-02 01:13] LABS: Glucose,Whole Blood 144 mg/dL (75-99)
[2018-02-02] MEDS: CLEVIDIPINE BUTYRATE 25 MG in EMPTY BAG 1 BAG IV SCH ×4 (01:19→05:38)
[2018-02-02] MEDS: PROPOFOL 1,000 MG in EMPTY BAG 1 BAG IV SCH ×9 (01:20→23:12)
[2018-02-02] MEDS: MORPHINE SULFATE 2 MG/ML SYRINGE IVP PRN ×2 (01:37→03:29)
[2018-02-02] MEDS ORDERED: DILTIAZEM DRIP BOLUS FROM BAG 1 MG SOLN IV ONE (02:35)
[2018-02-02 02:43] LABS: Glucose,Whole Blood 152 mg/dL (75-99)
[2018-02-02] MEDS: DILTIAZEM 50 MG in SODIUM CHLORIDE 0.9% 40 ML IV SCH ×4 (02:55→16:33)
[2018-02-02] MEDS: ARTIFICIAL TEARS-HYPROMELLOSE DROPS 15 ML BTL BOTH EYES SCH ×5 (03:44→21:24)
[2018-02-02 04:34] LABS: Glucose,Whole Blood 218 mg/dL (75-99)
[2018-02-02 05:07] LABS: ABG Base Excess -6.7 mmol/L; ABG HCO3 22 mmol/L (21-25); ABG Oxygen Saturation 93.6 % (94-97); ABG PCO2 61 mmHg (35-45); ABG PO2 82 mmHg (83-108); ABG TCO2 24 mmol/L (19-24)
[2018-02-02 05:14] LABS: Glucose,Whole Blood 246 mg/dL (75-99)
[2018-02-02] MEDS ORDERED: METOPROLOL TARTRATE 25 MG TAB PO STA ×2 (05:15→09:37)
[2018-02-02 05:17] LABS: ABG PH 7.16 (7.35-7.45)
[2018-02-02] MEDS ORDERED: SODIUM BICARB 8.4% 50 ML SYR (1 MEQ/ML) IV ONE (05:20)
[2018-02-02 05:35] LABS: Basophils # (A) 0.3 k/uL (0-0.2); Basophils % (A) 1 %; Eosinophils % (A) 0 %; HCT 40.4 % (39.0-53.0); HGB 13.5 gm/dL (13.0-17.5); Lymphocytes % (A) 9 %; MCH 32.4 pg (25.0-35.0); MCHC 33.4 g/dL (31.0-37.0); Mean Platelet Volume 7.8; Monocytes # (A) 1.4 k/uL (0-1.0); Monocytes % (A) 4 %; Neutrophils # (A) 29.1 k/uL (1.3-7.7); Neutrophils % (A) 86 %; Platelet Count 267 k/uL (150-450); RBC 4.16 m/uL (4.30-5.90); RDW 13.2 % (11.5-15.5)
[2018-02-02 05:54] LABS: Ionized Calcium 5.3 mg/dL (4.5-5.3)
[2018-02-02 06:05] LABS: Albumin 3.8 g/dL (3.5-5.0); Calcium 9.2 mg/dL (8.4-10.2); Magnesium 2.4 mg/dL (1.6-2.3); Potassium 4.3 mmol/L (3.5-5.1); Total Bilirubin 0.5 mg/dL (0.2-1.3); Total Protein 6.1 g/dL (6.3-8.2)
[2018-02-02 06:16] LABS: Glucose,Whole Blood 268 mg/dL (75-99)
[2018-02-02] MEDS: methylPREDNISolone SOD SUCCI 125 MG/2 ML VIAL IV SCH ×3 (06:18→18:12)
[2018-02-02] MEDS: LACTATED RINGERS 1,000 ML IV SCH (06:30)
--- NOTE | 2018-02-02 06:37 | XR ---
EXAMINATION TYPE: XR chest 1V portable DATE OF EXAM: 02/02/2018 COMPARISON: Yesterday HISTORY: Short of breath TECHNIQUE: Single frontal view of the chest is obtained. FINDINGS: Endotracheal tube is 6 cm from the gretel. Right jugular catheter has the tip in the main pulmonary artery. There are chest leads. There is blunting of left costophrenic angle. There is a lef t-sided chest tube noted. There is no gross heart failure. There is bilateral lower lobe mild infiltr ate and atelectasis. I see no definite pneumothorax. IMPRESSION: Basilar mild infiltrate and atelectasis is unchanged. No heart failure.
[2018-02-02] MEDS ORDERED: FUROSEMIDE 10 MG/ML 2 ML VIAL IV ONE ×3 (06:55→11:40)
[2018-02-02] MEDS ORDERED: DEXTROSE 5% IN WATER 1,000 ML with SODIUM BICARB (1 MEQ/ML) 150 ML IV SCH (07:00)
[2018-02-02 07:13] LABS: Glucose,Whole Blood 235 mg/dL (75-99)
[2018-02-02] MEDS: IPRATROPIUM-ALBUTEROL 3 ML NEB INHALATION SCH ×4 (07:20→18:59)
--- NOTE | 2018-02-02 07:27 | PN ---
PROGRESS NOTE Mr. Castillo is a 42-year-old male who has underwent coronary artery bypass grafting. He remains intubated and sedated. He is requiring high oxygen flow as well to maintain his oxygenation. He is in sinus rhythm with episodes of sinus tachycardia. He has no arrhythmia. His urine output is on the lower side. He is acidotic this morning. There is no evidence of malignant arrhythmia. He has been started on IV Cardizem drip because of his sinus tachycardia. He received one dose of beta genna earlier today. PHYSICAL EXAMINATION: His blood pressure is running in the 100s with a heart rate of 110 sinus. LUNGS: Clear to auscultation anteriorly. HEART: Regular rate and rhythm. S1, S2. No S3. No rub appreciated. ABDOMEN: Soft. Hypoactive bowel sounds. EXTREMITIES: No edema. LAB DATA: Lab data revealed a pH 7.16, pCO2 of 61, pO2 of 82. His BUN and creatinine 15 and 1.21. His hemoglobin is 13.5, white blood cell of 34,000. Chest x-ray showed no significant congestion with mild infiltrate at the bases with no change. IMPRESSION: 1. Status post coronary artery bypass grafting. 2. Respiratory failure requiring high pressure oxygenation. 3. Prior history of smoking. 4. History of hyperlipidemia. RECOMMENDATION: From the cardiac standpoint, I will give him a dose of IV Lasix. I will repeat the echocardiogram to evaluate his left ventricular systolic function. Continue the rest of his supportive care. Depending on his progress further recommendation will be made. Will await the input of the critical care service. His picture is suggestive of ARDS. MMODL / IJN: [id number] /
[2018-02-02 07:59] LABS: ABG Base Excess -1.2 mmol/L; ABG HCO3 25 mmol/L (21-25); ABG Oxygen Saturation 91.2 % (94-97); ABG PCO2 48 mmHg (35-45); ABG PH 7.32 (7.35-7.45); ABG PO2 62 mmHg (83-108); ABG TCO2 26 mmol/L (19-24)
[2018-02-02] MEDS: INSULIN REGULAR 100 UNIT in SODIUM CHLORIDE 0.9% 100 ML IV SCH ×2 (08:00→18:16)
[2018-02-02 08:45] LABS: Glucose,Whole Blood 196 mg/dL (75-99)
--- NOTE | 2018-02-02 08:54 | ECHOF ---
Referral Reason:cad MEASUREMENTS -------- HEIGHT: 152.4 cm WEIGHT: 109.8 kg BP: 142/70 FINDINGS -------- Sinus rhythm. Limited Study for LV Function: Pt had CABG 01/31/2018. Overall left ventricular systolic function is normal with, an EF between 55 - 60 %. CONCLUSIONS -------- 1. Limited Study for LV Function: Pt had CABG 01/31/2018. 2. Overall left ventricular systolic function is normal with, an EF between 55 - 60 %. PYROMETALLURGICAL ENGINEER: Olga Rico RDCS
[2018-02-02] MEDS: HEPARIN SODIUM,PORCINE 5,000 UNIT/ML 1 ML VIAL SQ SCH ×2 (09:18→16:49)
[2018-02-02] MEDS: CHLORHEXIDINE GLUCONATE 15 ML CUP MUCOUS MEM SCH ×2 (09:18→22:03)
[2018-02-02] MEDS: ASPIRIN 325 MG TAB PO SCH (09:19)
[2018-02-02] MEDS: MUPIROCIN 2% OINT 22 GM TUBE NASAL SCH ×2 (09:19→22:04)
[2018-02-02] MEDS: cefTRIAXone 2,000 MG in SODIUM CHLORIDE 0.9% 100 ML IVPB SCH (09:19)
[2018-02-02] MEDS: CLOPIDOGREL 75 MG TAB PO SCH (09:19)
[2018-02-02] MEDS: PANTOPRAZOLE 40 MG/10 ML VIAL IVP SCH (09:19)
[2018-02-02 09:24] LABS: Glucose,Whole Blood 174 mg/dL (75-99)
[2018-02-02] MEDS: ATORVASTATIN 40 MG TAB PO SCH (09:42)
--- NOTE | 2018-02-02 09:48 | XR ---
EXAMINATION TYPE: XR chest 1V portable DATE OF EXAM: 02/02/2018 COMPARISON: 02/02/2018 HISTORY: SOB, Follow Up FINDINGS: Indwelling tubes and catheters are unchanged. Dobbhoff catheter demonstrates its tip within the stoma ch. No change in bibasilar opacities. Stable appearance of the cardio-mediastinal structures at this time. Pleural effusion unchanged. IMPRESSION: 1. Stable portable chest. Clinical correlation and follow up until resolution is recommended.
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
--- NOTE | 2018-02-02 10:17 | P.PN ---
Subjective Progress Note Date: 02/02/18 Principal diagnosis: Status post off-pump 2 vessel bypass grafting Progress note dated 02/02/2018 42-year-old male postop day #2, status post off-pump two-vessel bypass grafting. Unfortunately, the patient has profound postoperative hypoxemic respiratory failure and likely has acute respiratory distress syndrome, although the etiology of ARDS is unclear given the fact that the patient wasn't off-pump bypass. He also has a history of recent acute non-ST segment elevation myocardial infarction, hypertension, chronic tobacco dependence and underlying COPD, obesity, and generalized anxiety disorder. Currently, the patient remains on the volume assist control mode. His current settings include a rate of 34, tidal volume 400, FiO2 on percent, and PEEP of 18. His arterial blood gases show a PaO2 of 60 to a PaCO2 of 48 and a pH of 7.32. Prior blood gases on volume assist control mode of 32 tidal volume 420 FiO2 100 % PEEP of 16 show a PaO2 of 80 to a PaCO2 of 61 and a pH of 7.16. The patient was admitted to the hospital on January 29 and had surgery on January 31. Currently, the patient's on Primacor at 0.1 mics per kilogram per minute, Cardizem drip at 10 mg an hour, Cleveprex which is currently on hold, fentanyl at 50 mcg/h, Nimbex at 1 britt per kilogram per minute, insulin drip at 10.5 units an hour and propofol 65 mcg/kg/m. The patient's chest x-ray shows typical post op changes with some left lower lobe atelectasis and infiltrate. Also, the endotracheal tube should be pushed down 1.5 cm. Also, a feeding tube was placed by thoracic surgery. Objective - Vital Signs Vital signs: Vital Signs Temp 98.6 F 02/02/18 08:00 Pulse 122 H 02/02/18 09:30 Resp 34 H 02/02/18 09:30 BP 155/76 02/02/18 09:30 Pulse Ox 97 02/02/18 09:30 Intake & Output 02/01/18 02/02/18 02/02/18 18:59 06:59 18:59 Intake Total 5805.407 4929.754 404.358 Output Total 1642 729 135 Balance 250.648 908.754 269.358 Weight 107.3 kg 109.9 kg Intake: IV 1028 988 227 ACETAMINOPHEN IV (For NPO 200 ) 1,000 mg In Empty Bag 1 bag @ 400 mls/hr IVPB Q6H [facility] Rx#:[id number] Cardiac Output 120 280 50 Lactated Ringers 1,000 ml 600 600 150 @ 50 mls/hr IV .Q20H [facility] Rx#:[id number] Pressure Bag 108 108 27 Intake, IV Titration 864.648 599.754 177.358 Amount Cisatracurium 200 mg In 54.594 67.383 9.11 Sodium Chloride 0.9% 180 ml @ 1 MCG/KG/MIN 6.05 mls/hr IV .Q24H [facility] Rx#: [id number] Clevidipine Butyrate 25 12 126.534 4 mg In Empty Bag 1 bag @ 1 MG/HR 2 mls/hr IV .Q24H [facility] Rx#:[id number] Diltiazem 50 mg In Sodium 101.001 Chloride 0.9% 40 ml @ 5 MG/HR 5 mls/hr IV .Q10H [facility] Rx#:[id number] Diltiazem 50 mg In Sodium 18.958 31.75 Chloride 0.9% 40 ml @ Per Protocol IV .Q0M [facility] Rx#:[id number] Insulin Regular 100 unit 2.953 41.940 32.498 In Sodium Chloride 0.9% 100 ml @ Per Protocol IV .Q0M [facility] Rx#:[id number] Nitroglycerin-D5w Pmx 50 31.85 mg In Dextrose/Water 1 250ml.bag @ 5 MCG/MIN 1.5 mls/hr IV .Q24H [facility] Rx#: [id number] Propofol 1,000 mg In 436.750 344.939 100.000 Empty Bag 1 bag @ Titrate IV .Q0M [facility] Rx#: [id number] cefTRIAXone 2,000 mg In 100 Sodium Chloride 0.9% 100 ml @ 100 mls/hr IVPB Q24HR [facility] Rx#:[id number] fentaNYL (PF) 2,500 mcg 125.500 In Sodium Chloride 0.9% 200 ml @ 50 MCG/HR 5 mls/ hr IV .Q24H [facility] Rx#: [id number] Oral 50 Output: Chest Tube Drainage 107 225 10 bilateral mediastinal 65 65 0 left pleural 42 160 10 Gastric Drainage 150 Drainage 10 left forearm 10 Urine 1375 504 125 Other: Voiding Method Indwelling Catheter Indwelling Catheter ABP, PAP, CO, CI - Last Documented Arterial Blood Pressure 153/73 Pulmonary Artery Pressure 40/23 Cardiac Output 8.5 Cardiac Index 4.5 - Exam No acute distress, sedated and paralyzed, with an orally placed endotracheal tube and a Dobbhoff tube. HEENT examination is grossly unremarkable. Mucous membranes are moist. Neck supple. Full range of motion. No adenopathy thyromegaly or neck vein distention. Cardiovascular examination reveals regular rhythm rate. S1-S2 normal. No S3 or S4. No discernible murmur noted. Heart sounds are distant. Lungs reveal mostly clear breath sounds. Breath sounds are equal bilaterally. A few scattered rhonchi and crackles are appreciated. No wheezes. Abdomen soft and bowel sounds are not heard. No masses or tenderness. Extremities are intact. No cyanosis clubbing or edema. Skin is without rash or lesion. Neurologic examination is cannot be adequately assessed because of sedation and paralysis. - Labs CBC & Chem 7: 02/02/18 04:20 02/02/18 04:20 Labs: Abnormal Lab Results - Last 24 Hours (Table) 02/01/18 02/01/18 02/01/18 Range/Units 10:07 10:07 11:29 WBC (3.8-10.6) k/uL RBC (4.30-5.90) m/uL Neutrophils # (1.3-7.7) k/uL Monocytes # (0-1.0) k/uL Basophils # (0-0.2) k/uL ABG pH (7.35-7.45) ABG pCO2 (35-45) mmHg ABG pO2 70 L (83-108) mmHg ABG Total CO2 26 H (19-24) mmol/L ABG O2 Saturation 93.7 L (94-97) % Carbon Dioxide (22-30) mmol/L Glucose (74-99) mg/dL POC Glucose (mg/dL) 143 H 150 H (75-99) mg/dL Magnesium (1.6-2.3) mg/dL ALT (21-72) U/L Total Protein (6.3-8.2) g/dL 02/01/18 02/01/18 02/01/18 Range/Units 12:06 14:16 15:17 WBC (3.8-10.6) k/uL RBC (4.30-5.90) m/uL Neutrophils # (1.3-7.7) k/uL Monocytes # (0-1.0) k/uL Basophils # (0-0.2) k/uL ABG pH (7.35-7.45) ABG pCO2 (35-45) mmHg ABG pO2 (83-108) mmHg ABG Total CO2 (19-24) mmol/L ABG O2 Saturation (94-97) % Carbon Dioxide (22-30) mmol/L Glucose (74-99) mg/dL POC Glucose (mg/dL) 122 H 123 H 140 H (75-99) mg/dL Magnesium (1.6-2.3) mg/dL ALT (21-72) U/L Total Protein (6.3-8.2) g/dL 02/01/18 02/01/18 02/01/18 Range/Units 16:13 17:56 20:09 WBC (3.8-10.6) k/uL RBC (4.30-5.90) m/uL Neutrophils # (1.3-7.7) k/uL Monocytes # (0-1.0) k/uL Basophils # (0-0.2) k/uL ABG pH (7.35-7.45) ABG pCO2 (35-45) mmHg ABG pO2 (83-108) mmHg ABG Total CO2 (19-24) mmol/L ABG O2 Saturation (94-97) % Carbon Dioxide (22-30) mmol/L Glucose (74-99) mg/dL POC Glucose (mg/dL) 132 H 158 H 141 H (75-99) mg/dL Magnesium (1.6-2.3) mg/dL ALT (21-72) U/L Total Protein (6.3-8.2) g/dL 02/01/18 02/01/18 02/01/18 Range/Units 21:53 22:50 23:14 WBC (3.8-10.6) k/uL RBC (4.30-5.90) m/uL Neutrophils # (1.3-7.7) k/uL Monocytes # (0-1.0) k/uL Basophils # (0-0.2) k/uL ABG pH 7.34 L (7.35-7.45) ABG pCO2 47 H (35-45) mmHg ABG pO2 58 L* (83-108) mmHg ABG Total CO2 27 H (19-24) mmol/L ABG O2 Saturation 88.9 L (94-97) % Carbon Dioxide (22-30) mmol/L Glucose (74-99) mg/dL POC Glucose (mg/dL) 162 H 153 H (75-99) mg/dL Magnesium (1.6-2.3) mg/dL ALT (21-72) U/L Total Protein (6.3-8.2) g/dL 02/01/18 02/02/18 02/02/18 Range/Units 23:59 01:01 02:22 WBC (3.8-10.6) k/uL RBC (4.30-5.90) m/uL Neutrophils # (1.3-7.7) k/uL Monocytes # (0-1.0) k/uL Basophils # (0-0.2) k/uL ABG pH (7.35-7.45) ABG pCO2 (35-45) mmHg ABG pO2 (83-108) mmHg ABG Total CO2 (19-24) mmol/L ABG O2 Saturation (94-97) % Carbon Dioxide (22-30) mmol/L Glucose (74-99) mg/dL POC Glucose (mg/dL) 152 H 144 H 152 H (75-99) mg/dL Magnesium (1.6-2.3) mg/dL ALT (21-72) U/L Total Protein (6.3-8.2) g/dL 02/02/18 02/02/18 02/02/18 Range/Units 04:04 04:20 04:20 WBC 34.0 H (3.8-10.6) k/uL RBC 4.16 L (4.30-5.90) m/uL Neutrophils # 29.1 H (1.3-7.7) k/uL Monocytes # 1.4 H (0-1.0) k/uL Basophils # 0.3 H (0-0.2) k/uL ABG pH (7.35-7.45) ABG pCO2 (35-45) mmHg ABG pO2 (83-108) mmHg ABG Total CO2 (19-24) mmol/L ABG O2 Saturation (94-97) % Carbon Dioxide 20 L (22-30) mmol/L Glucose 215 H (74-99) mg/dL POC Glucose (mg/dL) 218 H (75-99) mg/dL Magnesium 2.4 H (1.6-2.3) mg/dL ALT 90 H (21-72) U/L Total Protein 6.1 L (6.3-8.2) g/dL 02/02/18 02/02/18 02/02/18 Range/Units 05:03 05:03 06:05 WBC (3.8-10.6) k/uL RBC (4.30-5.90) m/uL Neutrophils # (1.3-7.7) k/uL Monocytes # (0-1.0) k/uL Basophils # (0-0.2) k/uL ABG pH 7.16 L* (7.35-7.45) ABG pCO2 61 H (35-45) mmHg ABG pO2 82 L (83-108) mmHg ABG Total CO2 (19-24) mmol/L ABG O2 Saturation 93.6 L (94-97) % Carbon Dioxide (22-30) mmol/L Glucose (74-99) mg/dL POC Glucose (mg/dL) 246 H 268 H (75-99) mg/dL Magnesium (1.6-2.3) mg/dL ALT (21-72) U/L Total Protein (6.3-8.2) g/dL 02/02/18 02/02/18 02/02/18 Range/Units 07:02 07:57 08:31 WBC (3.8-10.6) k/uL RBC (4.30-5.90) m/uL Neutrophils # (1.3-7.7) k/uL Monocytes # (0-1.0) k/uL Basophils # (0-0.2) k/uL ABG pH 7.32 L (7.35-7.45) ABG pCO2 48 H (35-45) mmHg ABG pO2 62 L (83-108) mmHg ABG Total CO2 26 H (19-24) mmol/L ABG O2 Saturation 91.2 L (94-97) % Carbon Dioxide (22-30) mmol/L Glucose (74-99) mg/dL POC Glucose (mg/dL) 235 H 196 H (75-99) mg/dL Magnesium (1.6-2.3) mg/dL ALT (21-72) U/L Total Protein (6.3-8.2) g/dL 02/02/18 Range/Units 09:03 WBC (3.8-10.6) k/uL RBC (4.30-5.90) m/uL Neutrophils # (1.3-7.7) k/uL Monocytes # (0-1.0) k/uL Basophils # (0-0.2) k/uL ABG pH (7.35-7.45) ABG pCO2 (35-45) mmHg ABG pO2 (83-108) mmHg ABG Total CO2 (19-24) mmol/L ABG O2 Saturation (94-97) % Carbon Dioxide (22-30) mmol/L Glucose (74-99) mg/dL POC Glucose (mg/dL) 174 H (75-99) mg/dL Magnesium (1.6-2.3) mg/dL ALT (21-72) U/L Total Protein (6.3-8.2) g/dL Microbiology - Last 24 Hours (Table) 01/29/18 23:00 Urine Culture - Final Urine,Clean Catch Klebsiella pneumoniae Assessment and Plan Assessment: Assessment Postop day #2, status post off-pump 2 vessel bypass grafting Postoperative mechanical ventilatory support Postoperative hypoxemic respiratory failure, likely secondary to acute respiratory distress syndrome Recent acute non-ST segment elevation myocardial infarction History of hypertension Chronic tobacco dependence and underlying COPD Obesity History of generalized anxiety disorder Plan: Plan dated 02/02/2018 Current blood gases are adequate. There will be no PEEP changes at this time. The first thing to be reduced to be the FiO2. The patient is not ready for weaning obviously given his unstable respiratory and cardiovascular status. Tube feeds should be started as soon as possible. A Dobbhoff feeding tube was placed by thoracic surgery. The patient should not receive any bicarbonate at this time. Urine culture showed evidence of Klebsiella pneumoniae. We'll check to make sure the patient's on adequate antibiotics. The rest of his medications were reviewed. Medications are currently reviewed. White count is 34, hemoglobin 13.5, hematocrit 40.4, and platelet count 267,000. Sodium 141 potassium 4.3 chloride is 106 CO2 is 20. BUN and creatinine are 15 and 1.21. Anion gap is 15. Overall prognosis remains guarded. The patient will likely require long-term mechanical ventilatory support. Again, the goal would be a low tidal volume high PEEP strategy. Additional recommendations and suggestions are forthcoming. Medications labs are reviewed. Critical care time 37 minutes Time with Patient: Greater than 30
[2018-02-02 10:21] LABS: Glucose,Whole Blood 202 mg/dL (75-99)
[2018-02-02] MEDS: MILRINONE-D5W PMX 20 MG in DEXTROSE/WATER 1 100ML.BAG IV SCH (12:22)
[2018-02-02 12:24] LABS: Glucose,Whole Blood 207 mg/dL (75-99)
[2018-02-02 13:28] LABS: Glucose,Whole Blood 175 mg/dL (75-99)
[2018-02-02 14:28] LABS: Glucose,Whole Blood 169 mg/dL (75-99)
[2018-02-02 15:39] LABS: Glucose,Whole Blood 148 mg/dL (75-99)
[2018-02-02] MEDS: NITROGLYCERIN-D5W PMX 50 MG in DEXTROSE/WATER 1 250ML.BAG IV SCH (15:40)
[2018-02-02] MEDS ORDERED: METOPROLOL TARTRATE 12.5 MG TAB PO SCH (16:00)
[2018-02-02 16:32] LABS: Glucose,Whole Blood 132 mg/dL (75-99)
[2018-02-02 17:17] LABS: Glucose,Whole Blood 126 mg/dL (75-99)
[2018-02-02 18:26] LABS: Glucose,Whole Blood 116 mg/dL (75-99)
[2018-02-02] MEDS: BUDESONIDE 1 MG/2 ML NEBU INHALATION SCH (18:59)
[2018-02-02 19:12] LABS: Glucose,Whole Blood 115 mg/dL (75-99)
[2018-02-02] MEDS: FORMOTEROL FUMARATE 20 MCG/2 ML NEBU INHALATION SCH (19:33)
[2018-02-02 20:23] LABS: Glucose,Whole Blood 121 mg/dL (75-99)
[2018-02-02 21:32] LABS: Glucose,Whole Blood 135 mg/dL (75-99)
[2018-02-02] MEDS: SENNOSIDES-DOCUSATE SODIUM 1 EACH TAB PO SCH (22:03)
[2018-02-02] MEDS: METOPROLOL TARTRATE 50 MG TAB PO SCH (22:04)
[2018-02-02] MEDS: CISATRACURIUM 200 MG in SODIUM CHLORIDE 0.9% 180 ML IV SCH (22:05)
[2018-02-02 22:37] LABS: Glucose,Whole Blood 150 mg/dL (75-99)
[2018-02-02 23:14] LABS: Glucose,Whole Blood 149 mg/dL (75-99)
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
[2018-02-03 00:30] LABS: Glucose,Whole Blood 133 mg/dL (75-99)
[2018-02-03 01:27] LABS: Glucose,Whole Blood 124 mg/dL (75-99)
[2018-02-03] MEDS: ARTIFICIAL TEARS-HYPROMELLOSE DROPS 15 ML BTL BOTH EYES SCH ×6 (02:16→20:57)
[2018-02-03] MEDS: HEPARIN SODIUM,PORCINE 5,000 UNIT/ML 1 ML VIAL SQ SCH ×3 (02:17→16:17)
[2018-02-03] MEDS: methylPREDNISolone SOD SUCCI 125 MG/2 ML VIAL IV SCH ×4 (02:17→19:07)
[2018-02-03] MEDS: PROPOFOL 1,000 MG in EMPTY BAG 1 BAG IV SCH ×8 (02:19→22:59)
[2018-02-03 02:22] LABS: Glucose,Whole Blood 123 mg/dL (75-99)
[2018-02-03 03:24] LABS: Glucose,Whole Blood 123 mg/dL (75-99)
[2018-02-03 04:13] LABS: Glucose,Whole Blood 122 mg/dL (75-99)
[2018-02-03] MEDS: LACTATED RINGERS 1,000 ML IV SCH ×2 (04:29→23:50)
[2018-02-03] MEDS: INSULIN REGULAR 100 UNIT in SODIUM CHLORIDE 0.9% 100 ML IV SCH ×2 (04:30→16:07)
[2018-02-03 04:32] LABS: ABG Base Excess 0.5 mmol/L; ABG HCO3 27 mmol/L (21-25); ABG Oxygen Saturation 96.4 % (94-97); ABG PCO2 51 mmHg (35-45); ABG PH 7.32 (7.35-7.45); ABG PO2 87 mmHg (83-108); ABG TCO2 28 mmol/L (19-24)
[2018-02-03 05:01] LABS: Basophils # (A) 0.1 k/uL (0-0.2); Basophils % (A) 0 %; Eosinophils # (A) 0.1 k/uL (0-0.7); Eosinophils % (A) 0 %; HCT 33.5 % (39.0-53.0); HGB 10.8 gm/dL (13.0-17.5); Lymphocytes # (A) 1.6 k/uL (1.0-4.8); Lymphocytes % (A) 6 %; MCH 30.7 pg (25.0-35.0); MCHC 32.2 g/dL (31.0-37.0); MCV 95.4 fL (80.0-100.0); Mean Platelet Volume 7.6; Monocytes # (A) 2.2 k/uL (0-1.0); Monocytes % (A) 8 %; Neutrophils % (A) 85 %; Platelet Count 264 k/uL (150-450); RBC 3.51 m/uL (4.30-5.90); RDW 13.3 % (11.5-15.5); WBC 28.2 k/uL (3.8-10.6)
[2018-02-03 05:11] LABS: Glucose,Whole Blood 129 mg/dL (75-99)
[2018-02-03 05:16] LABS: Calcium 8.9 mg/dL (8.4-10.2); Magnesium 2.7 mg/dL (1.6-2.3); Potassium 4.8 mmol/L (3.5-5.1); Total Bilirubin 0.3 mg/dL (0.2-1.3); Total Protein 5.1 g/dL (6.3-8.2)
[2018-02-03 05:19] LABS: Prothrombin Time 9.9 sec (9.0-12.0)
[2018-02-03 06:16] LABS: Glucose,Whole Blood 124 mg/dL (75-99)
[2018-02-03 07:06] LABS: Glucose,Whole Blood 115 mg/dL (75-99)
[2018-02-03] MEDS: IPRATROPIUM-ALBUTEROL 3 ML NEB INHALATION SCH ×5 (07:29→23:49)
[2018-02-03] MEDS: FORMOTEROL FUMARATE 20 MCG/2 ML NEBU INHALATION SCH ×2 (07:29→19:30)
[2018-02-03] MEDS: BUDESONIDE 1 MG/2 ML NEBU INHALATION SCH ×2 (07:29→19:01)
[2018-02-03 07:33] LABS: ABG PO2 50 mmHg (83-108)
[2018-02-03] MEDS: MILRINONE-D5W PMX 20 MG in DEXTROSE/WATER 1 100ML.BAG IV SCH (07:56)
--- NOTE | 2018-02-03 08:00 | PN ---
PROGRESS NOTE Mr. Castillo is a 42-year-old male who presented with [id number] elevation myocardial infarction. He has underwent a stenting about 10 years ago and was found to have at this time complex restenosis in the LAD with chronically occluded right coronary artery, underwent coronary artery bypass grafting on Friday. Postoperatively, there has been issue with his oxygenation. He remains on high level of PEEP as well as high FiO2, although improved compared with yesterday. Hemodynamically, his blood pressure is stable. He is on no pressor. He has no evidence of tachycardia or bradycardia at this point. He had sinus tachycardia that has improved. He had a repeat echocardiogram yesterday that revealed a preserved systolic function with no segmental wall motion abnormality. He continues to be on aspirin once a day, Lipitor 40 mg daily, Plavix 75 mg daily and metoprolol tartrate 50 mg twice a day. PHYSICAL EXAMINATION: Blood pressure 112/60 with the heart rate in the 70s. PA pressure 30/21. LUNGS: Clear to auscultation anteriorly. HEART: Regular rate and rhythm. S1, S2. No S3. No rub appreciated. ABDOMEN: Soft. Positive bowel sounds. No organomegaly. EXTREMITIES: No edema. His chest x-ray shows no significant infiltrate. IMPRESSION: 1. Status post coronary artery bypass grafting. 2. Respiratory failure with finding suggestive of acute respiratory distress syndrome. 3. Prior history of percutaneous revascularization 10 years ago. 4. History of chronic obstructive lung disease. 5. Hypertension. RECOMMENDATION: We will continue supportive care. Continue to wean down the FiO2 and PEEP as tolerated. Follow his renal function and depending on his progress, further recommendation will be made. MMODL / IJN: [id number] /
[2018-02-03 08:38] LABS: Glucose,Whole Blood 132 mg/dL (75-99)
[2018-02-03] MEDS: CLOPIDOGREL 75 MG TAB PO SCH (08:45)
[2018-02-03] MEDS: BISACODYL 10 MG SUPP RECTAL PRN (08:45)
[2018-02-03] MEDS: ASPIRIN 325 MG TAB PO SCH (08:45)
[2018-02-03] MEDS: CHLORHEXIDINE GLUCONATE 15 ML CUP MUCOUS MEM SCH ×2 (08:45→20:58)
[2018-02-03] MEDS: PANTOPRAZOLE 40 MG/10 ML VIAL IVP SCH (08:45)
[2018-02-03] MEDS: ATORVASTATIN 40 MG TAB PO SCH (08:45)
[2018-02-03] MEDS: MUPIROCIN 2% OINT 22 GM TUBE NASAL SCH ×3 (08:45→20:58)
[2018-02-03] MEDS: METOPROLOL TARTRATE 50 MG TAB PO SCH ×2 (08:45→20:58)
[2018-02-03] MEDS ORDERED: amLODIPine 2.5 MG TAB PO SCH (09:00)
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
[2018-02-03] MEDS: cefTRIAXone 2,000 MG in SODIUM CHLORIDE 0.9% 100 ML IVPB SCH (09:53)
--- NOTE | 2018-02-03 09:53 | XR ---
EXAMINATION TYPE: XR chest 1V portable DATE OF EXAM: 02/03/2018 COMPARISON: 02/02/2018 INDICATION: Post open heart surgery TECHNIQUE: Single frontal view of the chest is obtained. FINDINGS: The heart size is normal. The pulmonary vasculature is normal. The lungs are clear. Endotracheal tube remains present with tip above the gretel. [place] catheter is present with the t ip in left main pulmonary artery. No pneumothorax is evident. Left-sided chest tube is present. No pn eumothorax is present. IMPRESSION: 1. Lines and catheters discussed above. 2. No acute pulmonary process.
--- NOTE | 2018-02-03 10:04 | P.PN ---
Subjective Progress Note Date: 02/03/18 Principal diagnosis: Status post off-pump 2 vessel bypass grafting Progress note dated 02/02/2018 42-year-old male postop day #2, status post off-pump two-vessel bypass grafting. Unfortunately, the patient has profound postoperative hypoxemic respiratory failure and likely has acute respiratory distress syndrome, although the etiology of ARDS is unclear given the fact that the patient wasn't off-pump bypass. He also has a history of recent acute non-ST segment elevation myocardial infarction, hypertension, chronic tobacco dependence and underlying COPD, obesity, and generalized anxiety disorder. Currently, the patient remains on the volume assist control mode. His current settings include a rate of 34, tidal volume 400, FiO2 on percent, and PEEP of 18. His arterial blood gases show a PaO2 of 60 to a PaCO2 of 48 and a pH of 7.32. Prior blood gases on volume assist control mode of 32 tidal volume 420 FiO2 100 % PEEP of 16 show a PaO2 of 80 to a PaCO2 of 61 and a pH of 7.16. The patient was admitted to the hospital on January 29 and had surgery on January 31. Currently, the patient's on Primacor at 0.1 mics per kilogram per minute, Cardizem drip at 10 mg an hour, Cleveprex which is currently on hold, fentanyl at 50 mcg/h, Nimbex at 1 britt per kilogram per minute, insulin drip at 10.5 units an hour and propofol 65 mcg/kg/m. The patient's chest x-ray shows typical post op changes with some left lower lobe atelectasis and infiltrate. Also, the endotracheal tube should be pushed down 1.5 cm. Also, a feeding tube was placed by thoracic surgery. Progress note dated 02/03/2018 42-year-old male, postop day #3, status post off-pump two-vessel bypass grafting. He developed profound postoperative hypoxemic respiratory failure with presumed acute respiratory distress syndrome. The etiology of the acute respiratory distress syndrome is not clear. He also has a recent history of acute non-ST segment elevation myocardial infarction, hypertension, chronic tobacco dependence, and underlying COPD. In addition, he has obesity and generalized anxiety disorder. He currently remains on the ventilator. He is on the volume assist control mode rate of 34, tidal volume 400, FiO2 70% to be dropped to 60%, and a PEEP of 8. Blood gases show a PaO2 of 87 a PaCO2 51 and a pH is 7.3. This is consistent with a very mild respiratory acidosis. Currently, his chest x-ray looks pretty good. He is receiving vital high protein at 20 with a goal of 20. In addition, he is on Nimbex at 1 britt per kilogram per minute, to be placed on hold, lactated Ringer's at 50 mL an hour, propofol at 50 mics per kilogram per minute, fentanyl 50 mcg/h, and insulin at 9.5 units per hour. Yesterday, the patient's FiO2 was 100%. He has made progress overnight. Microbiology is negative currently. Yesterday, thoracic surgery placed a feeding tube. Objective - Vital Signs Vital signs: Vital Signs Temp 98.2 F 02/03/18 09:00 Pulse 74 02/03/18 09:00 Resp 21 02/03/18 09:00 BP 100/59 02/03/18 02:00 Pulse Ox 95 02/03/18 09:00 Intake & Output 02/02/18 02/03/18 02/03/18 18:59 06:59 18:59 Intake Total 7466.284 6953.395 516.070 Output Total 515 705 245 Balance 1028.779 701.395 271.070 Weight 109.9 kg 101.9 kg 101.9 kg Intake: IV 778 708 197 Cardiac Output 70 20 Lactated Ringers 1,000 ml 600 600 150 @ 50 mls/hr IV .Q20H [facility] Rx#:[id number] Pressure Bag 108 108 27 Intake, IV Titration 645.779 538.395 184.070 Amount Cisatracurium 200 mg In 9.11 67.343 62.013 Sodium Chloride 0.9% 180 ml @ 1 MCG/KG/MIN 6.05 mls/hr IV .Q24H [facility] Rx#: [id number] Clevidipine Butyrate 25 32 8.133 mg In Empty Bag 1 bag @ 1 MG/HR 2 mls/hr IV .Q24H [facility] Rx#:[id number] Diltiazem 50 mg In Sodium 81.75 50 Chloride 0.9% 40 ml @ Per Protocol IV .Q0M [facility] Rx#:[id number] Insulin Regular 100 unit 122.919 112.919 22.057 In Sodium Chloride 0.9% 100 ml @ Per Protocol IV .Q0M [facility] Rx#:[id number] Propofol 1,000 mg In 400.000 300.000 100 Empty Bag 1 bag @ Titrate IV .Q0M [facility] Rx#: [id number] Tube Feeding 120 160 45 Other 90 Output: Chest Tube Drainage 50 30 30 bilateral mediastinal 0 left pleural 50 30 30 Drainage 15 left forearm 15 Urine 465 660 215 Other: Voiding Method Indwelling Catheter Indwelling Catheter Indwelling Catheter ABP, PAP, CO, CI - Last Documented Arterial Blood Pressure 118/66 Pulmonary Artery Pressure 33/24 Cardiac Output 6.4 Cardiac Index 2.9 - Exam No acute distress, sedated and paralyzed, with an orally placed endotracheal tube and a Dobbhoff tube. HEENT examination is grossly unremarkable. Mucous membranes are moist. Neck supple. Full range of motion. No adenopathy thyromegaly or neck vein distention. Cardiovascular examination reveals regular rhythm rate. S1-S2 normal. No S3 or S4. No discernible murmur noted. Heart sounds are distant. Lungs reveal mostly clear breath sounds. Breath sounds are equal bilaterally. Rhonchi are bit more prominent today than yesterday. A few crackles are appreciated. No wheezes are noted. Abdomen soft and bowel sounds are not heard. No masses or tenderness. Extremities are intact. No cyanosis clubbing or edema. Skin is without rash or lesion. Neurologic examination is cannot be adequately assessed because of sedation and paralysis. - Labs CBC & Chem 7: 02/03/18 04:35 02/03/18 04:35 Labs: Abnormal Lab Results - Last 24 Hours (Table) 01/31/18 02/02/18 02/02/18 Range/Units 16:51 10:10 12:13 WBC (3.8-10.6) k/uL RBC (4.30-5.90) m/uL Hgb (13.0-17.5) gm/dL Hct (39.0-53.0) % Neutrophils # (1.3-7.7) k/uL Monocytes # (0-1.0) k/uL ABG pH (7.35-7.45) ABG pCO2 (35-45) mmHg ABG pO2 50 L* (83-108) mmHg ABG HCO3 (21-25) mmol/L ABG Total CO2 (19-24) mmol/L Chloride (98-107) mmol/L BUN (9-20) mg/dL Creatinine (0.66-1.25) mg/dL Glucose (74-99) mg/dL POC Glucose (mg/dL) 202 H 207 H (75-99) mg/dL Magnesium (1.6-2.3) mg/dL Alkaline Phosphatase (38-126) U/L Total Protein (6.3-8.2) g/dL Albumin (3.5-5.0) g/dL 02/02/18 02/02/18 02/02/18 Range/Units 13:16 14:08 15:27 WBC (3.8-10.6) k/uL RBC (4.30-5.90) m/uL Hgb (13.0-17.5) gm/dL Hct (39.0-53.0) % Neutrophils # (1.3-7.7) k/uL Monocytes # (0-1.0) k/uL ABG pH (7.35-7.45) ABG pCO2 (35-45) mmHg ABG pO2 (83-108) mmHg ABG HCO3 (21-25) mmol/L ABG Total CO2 (19-24) mmol/L Chloride (98-107) mmol/L BUN (9-20) mg/dL Creatinine (0.66-1.25) mg/dL Glucose (74-99) mg/dL POC Glucose (mg/dL) 175 H 169 H 148 H (75-99) mg/dL Magnesium (1.6-2.3) mg/dL Alkaline Phosphatase (38-126) U/L Total Protein (6.3-8.2) g/dL Albumin (3.5-5.0) g/dL 02/02/18 02/02/18 02/02/18 Range/Units 16:21 17:06 18:15 WBC (3.8-10.6) k/uL RBC (4.30-5.90) m/uL Hgb (13.0-17.5) gm/dL Hct (39.0-53.0) % Neutrophils # (1.3-7.7) k/uL Monocytes # (0-1.0) k/uL ABG pH (7.35-7.45) ABG pCO2 (35-45) mmHg ABG pO2 (83-108) mmHg ABG HCO3 (21-25) mmol/L ABG Total CO2 (19-24) mmol/L Chloride (98-107) mmol/L BUN (9-20) mg/dL Creatinine (0.66-1.25) mg/dL Glucose (74-99) mg/dL POC Glucose (mg/dL) 132 H 126 H 116 H (75-99) mg/dL Magnesium (1.6-2.3) mg/dL Alkaline Phosphatase (38-126) U/L Total Protein (6.3-8.2) g/dL Albumin (3.5-5.0) g/dL 02/02/18 02/02/18 02/02/18 Range/Units 19:01 20:12 21:21 WBC (3.8-10.6) k/uL RBC (4.30-5.90) m/uL Hgb (13.0-17.5) gm/dL Hct (39.0-53.0) % Neutrophils # (1.3-7.7) k/uL Monocytes # (0-1.0) k/uL ABG pH (7.35-7.45) ABG pCO2 (35-45) mmHg ABG pO2 (83-108) mmHg ABG HCO3 (21-25) mmol/L ABG Total CO2 (19-24) mmol/L Chloride (98-107) mmol/L BUN (9-20) mg/dL Creatinine (0.66-1.25) mg/dL Glucose (74-99) mg/dL POC Glucose (mg/dL) 115 H 121 H 135 H (75-99) mg/dL Magnesium (1.6-2.3) mg/dL Alkaline Phosphatase (38-126) U/L Total Protein (6.3-8.2) g/dL Albumin (3.5-5.0) g/dL 02/02/18 02/02/18 02/03/18 Range/Units 22:21 23:01 00:11 WBC (3.8-10.6) k/uL RBC (4.30-5.90) m/uL Hgb (13.0-17.5) gm/dL Hct (39.0-53.0) % Neutrophils # (1.3-7.7) k/uL Monocytes # (0-1.0) k/uL ABG pH (7.35-7.45) ABG pCO2 (35-45) mmHg ABG pO2 (83-108) mmHg ABG HCO3 (21-25) mmol/L ABG Total CO2 (19-24) mmol/L Chloride (98-107) mmol/L BUN (9-20) mg/dL Creatinine (0.66-1.25) mg/dL Glucose (74-99) mg/dL POC Glucose (mg/dL) 150 H 149 H 133 H (75-99) mg/dL Magnesium (1.6-2.3) mg/dL Alkaline Phosphatase (38-126) U/L Total Protein (6.3-8.2) g/dL Albumin (3.5-5.0) g/dL 02/03/18 02/03/18 02/03/18 Range/Units 01:15 02:10 03:12 WBC (3.8-10.6) k/uL RBC (4.30-5.90) m/uL Hgb (13.0-17.5) gm/dL Hct (39.0-53.0) % Neutrophils # (1.3-7.7) k/uL Monocytes # (0-1.0) k/uL ABG pH (7.35-7.45) ABG pCO2 (35-45) mmHg ABG pO2 (83-108) mmHg ABG HCO3 (21-25) mmol/L ABG Total CO2 (19-24) mmol/L Chloride (98-107) mmol/L BUN (9-20) mg/dL Creatinine (0.66-1.25) mg/dL Glucose (74-99) mg/dL POC Glucose (mg/dL) 124 H 123 H 123 H (75-99) mg/dL Magnesium (1.6-2.3) mg/dL Alkaline Phosphatase (38-126) U/L Total Protein (6.3-8.2) g/dL Albumin (3.5-5.0) g/dL 02/03/18 02/03/18 02/03/18 Range/Units 04:02 04:30 04:35 WBC (3.8-10.6) k/uL RBC (4.30-5.90) m/uL Hgb (13.0-17.5) gm/dL Hct (39.0-53.0) % Neutrophils # (1.3-7.7) k/uL Monocytes # (0-1.0) k/uL ABG pH 7.32 L (7.35-7.45) ABG pCO2 51 H (35-45) mmHg ABG pO2 (83-108) mmHg ABG HCO3 27 H (21-25) mmol/L ABG Total CO2 28 H (19-24) mmol/L Chloride 108 H (98-107) mmol/L BUN 31 H (9-20) mg/dL Creatinine 1.58 H (0.66-1.25) mg/dL Glucose 115 H (74-99) mg/dL POC Glucose (mg/dL) 122 H (75-99) mg/dL Magnesium 2.7 H (1.6-2.3) mg/dL Alkaline Phosphatase 37 L (38-126) U/L Total Protein 5.1 L (6.3-8.2) g/dL Albumin 3.0 L (3.5-5.0) g/dL 02/03/18 02/03/18 02/03/18 Range/Units 04:35 04:59 06:05 WBC 28.2 H (3.8-10.6) k/uL RBC 3.51 L (4.30-5.90) m/uL Hgb 10.8 L (13.0-17.5) gm/dL Hct 33.5 L (39.0-53.0) % Neutrophils # 24.0 H (1.3-7.7) k/uL Monocytes # 2.2 H (0-1.0) k/uL ABG pH (7.35-7.45) ABG pCO2 (35-45) mmHg ABG pO2 (83-108) mmHg ABG HCO3 (21-25) mmol/L ABG Total CO2 (19-24) mmol/L Chloride (98-107) mmol/L BUN (9-20) mg/dL Creatinine (0.66-1.25) mg/dL Glucose (74-99) mg/dL POC Glucose (mg/dL) 129 H 124 H (75-99) mg/dL Magnesium (1.6-2.3) mg/dL Alkaline Phosphatase (38-126) U/L Total Protein (6.3-8.2) g/dL Albumin (3.5-5.0) g/dL 02/03/18 02/03/18 Range/Units 06:55 08:24 WBC (3.8-10.6) k/uL RBC (4.30-5.90) m/uL Hgb (13.0-17.5) gm/dL Hct (39.0-53.0) % Neutrophils # (1.3-7.7) k/uL Monocytes # (0-1.0) k/uL ABG pH (7.35-7.45) ABG pCO2 (35-45) mmHg ABG pO2 (83-108) mmHg ABG HCO3 (21-25) mmol/L ABG Total CO2 (19-24) mmol/L Chloride (98-107) mmol/L BUN (9-20) mg/dL Creatinine (0.66-1.25) mg/dL Glucose (74-99) mg/dL POC Glucose (mg/dL) 115 H 132 H (75-99) mg/dL Magnesium (1.6-2.3) mg/dL Alkaline Phosphatase (38-126) U/L Total Protein (6.3-8.2) g/dL Albumin (3.5-5.0) g/dL Assessment and Plan Assessment: Assessment Postop day #3, status post off-pump 2 vessel bypass grafting Postoperative mechanical ventilatory support Postoperative hypoxemic respiratory failure, likely secondary to acute respiratory distress syndrome (ARDS). Recent acute non-ST segment elevation myocardial infarction History of hypertension Chronic tobacco dependence and underlying COPD Obesity History of generalized anxiety disorder Plan: Plan dated 02/02/2018 Current blood gases are adequate. There will be no PEEP changes at this time. The first thing to be reduced to be the FiO2. The patient is not ready for weaning obviously given his unstable respiratory and cardiovascular status. Tube feeds should be started as soon as possible. A Dobbhoff feeding tube was placed by thoracic surgery. The patient should not receive any bicarbonate at this time. Urine culture showed evidence of Klebsiella pneumoniae. We'll check to make sure the patient's on adequate antibiotics. The rest of his medications were reviewed. Medications are currently reviewed. White count is 34, hemoglobin 13.5, hematocrit 40.4, and platelet count 267,000. Sodium 141 potassium 4.3 chloride is 106 CO2 is 20. BUN and creatinine are 15 and 1.21. Anion gap is 15. Overall prognosis remains guarded. The patient will likely require long-term mechanical ventilatory support. Again, the goal would be a low tidal volume high PEEP strategy. Additional recommendations and suggestions are forthcoming. Medications labs are reviewed. Critical care time 37 minutes Plan dated 02/03/2018 Today we will hold the patient's paralytic. We'll see if we can manage him without it. We'll continue to drop the FiO2. It was a drop down to 60%. Hopefully, later today or tomorrow drop down to 50% at which time we can begin to start to make PEEP changes. Currently he is on a PEEP of 18. He is receiving nourishment. A Dobbhoff to was placed by thoracic surgery. His chest x-ray looks relatively stable. White count is 28.2, hemoglobin 10.8, hematocrit 33.5, and platelet count 264,000. Sodium 140, potassium 4.8, chlorides 108, CO2 25, anion gap is normal, BUN 31, and creatinine is 1.58. We will continue with mechanical ventilatory support and best supportive care. Prognosis is guarded. The patient's on appropriate medications which have been reviewed. Microbiologic studies thus far are negative. Critical care time 35 minutes Time with Patient: Greater than 30
--- NOTE | 2018-02-03 10:07 | CDI ---
Last Revision, February 2017 Documentation Clarification Form Date: 02/03/2018 9:53:39 AM From: Jazz Rock RN, CCDS Admit Date: 01/29/2018 1:13:00 AM Patient Name: Toby Castillo Visit Number: [id number] ATTENTION: The Clinical Documentation Specialists (CDI) and [facility] Coding Staff appreciate your assistance in clarifying documentation. Please respond to the clarification below the line at the bottom and electronically sign. The CDI & [facility] Coding staff will review the response and follow-up if needed. Please note: Queries are made part of the Legal Health Record. If you have any questions, please contact the author of this message via ITS. Low Brand MD/Christina Carrera CNP A declining Hgb and Hct have been noted and lack specificity to accurately reflect your patients severity of condition and clarification is needed. History/Risk Factors: Spleenectomy hx, off pump CABG this admission, unexpected acute hypoxic respiratory failure Clinical indicators: Hemoglobin: 14.5/14.8/12.8/12.9/13.5/10.8 Hematocrit: 45.8/46.2/37.7/39.4/40.4/33.5 Treatment: Labs per p-op protocol, AM Daily and PRN 250cc Albumin IVPB In order to capture the severity of condition, please identify the condition associated with the declining Hgb and Hct and etiology if known: Acute blood loss anemia Acute on chronic blood loss anemia Chronic blood loss anemia Iron deficiency anemia Hemolytic anemia Drug induced anemia Nutritional anemia Anemia of chronic disease Unable to determine Other, please specify Please also identify condition in relation to post-operative status and underlying cause if known An expected post-procedural or post-surgical condition; Integral to the procedure; Inherent to the procedure; An unexpected post-procedural or post-surgical condition related to surgical care; Please continue to document in your progress notes and discharge summary in order to capture severity of illness and risk of mortality. Include clinical findings that support your diagnosis. _Acute blood loss anemia (in every post-op cardiac patient) Unexpected respiratory failure post-op MTDD
[2018-02-03 10:23] LABS: Glucose,Whole Blood 124 mg/dL (75-99)
[2018-02-03] MEDS: METOPROLOL TARTRATE 25 MG TAB PO SCH (11:00)
[2018-02-03] MEDS: ASPIRIN 81 MG PO SCH (11:01)
[2018-02-03] MEDS: ATORVASTATIN 80 MG TAB PO SCH (11:01)
[2018-02-03] MEDS: FAMOTIDINE 20 MG/2 ML VIAL IV SCH (11:01)
[2018-02-03] MEDS: NITROGLYCERIN OINT 1 INCH/GM PACKET TOPICAL SCH ×2 (11:02→11:03)
[2018-02-03] MEDS: fentaNYL (PF) 2,500 MCG in SODIUM CHLORIDE 0.9% 200 ML IV SCH ×2 (11:43→23:17)
[2018-02-03] MEDS ORDERED: amLODIPine 2.5 MG TAB PO STA (11:59)
[2018-02-03 12:15] LABS: Glucose,Whole Blood 112 mg/dL (75-99)
[2018-02-03 13:09] LABS: Glucose,Whole Blood 140 mg/dL (75-99)
--- NOTE | 2018-02-03 13:52 | P.PN ---
Subjective Progress Note Date: 02/03/18 Principal diagnosis: leukocytosis Objective - Vital Signs Vital signs: Vital Signs Temp 97.9 F 02/03/18 11:30 Pulse 77 02/03/18 11:47 Resp 34 H 02/03/18 11:30 BP 100/59 02/03/18 02:00 Pulse Ox 98 02/03/18 11:30 Intake & Output 02/02/18 02/03/18 02/03/18 18:59 06:59 18:59 Intake Total 5927.438 2371.395 1130.545 Output Total 515 705 350 Balance 1028.779 701.395 780.545 Weight 109.9 kg 101.9 kg 101.9 kg Intake: IV 778 708 315 Cardiac Output 70 20 Lactated Ringers 1,000 ml 600 600 250 @ 50 mls/hr IV .Q20H [facility] Rx#:[id number] Pressure Bag 108 108 45 Intake, IV Titration 645.779 538.395 618.545 Amount Cisatracurium 200 mg In 9.11 67.343 62.013 Sodium Chloride 0.9% 180 ml @ 1 MCG/KG/MIN 6.05 mls/hr IV .Q24H [facility] Rx#: [id number] Clevidipine Butyrate 25 32 8.133 mg In Empty Bag 1 bag @ 1 MG/HR 2 mls/hr IV .Q24H [facility] Rx#:[id number] Diltiazem 50 mg In Sodium 81.75 50 Chloride 0.9% 40 ml @ Per Protocol IV .Q0M [facility] Rx#:[id number] Insulin Regular 100 unit 122.919 112.919 57.465 In Sodium Chloride 0.9% 100 ml @ Per Protocol IV .Q0M [facility] Rx#:[id number] Propofol 1,000 mg In 400.000 300.000 200 Empty Bag 1 bag @ Titrate IV .Q0M [facility] Rx#: [id number] cefTRIAXone 2,000 mg In 100 Sodium Chloride 0.9% 100 ml @ 100 mls/hr IVPB Q24HR [facility] Rx#:[id number] fentaNYL (PF) 2,500 mcg 199.067 In Sodium Chloride 0.9% 200 ml @ 50 MCG/HR 5 mls/ hr IV .Q24H [facility] Rx#: [id number] Tube Feeding 120 160 107 Other 90 Output: Chest Tube Drainage 50 30 30 bilateral mediastinal 0 left pleural 50 30 30 Drainage 15 left forearm 15 Urine 465 660 320 Other: Voiding Method Indwelling Catheter Indwelling Catheter Indwelling Catheter ABP, PAP, CO, CI - Last Documented Arterial Blood Pressure 128/76 Pulmonary Artery Pressure 33/23 Cardiac Output 6.4 Cardiac Index 2.9 - Constitutional General appearance: Present: average body habitus, no acute distress - EENT Eyes: Present: anicteric sclerae - Neck Neck: Absent: lymphadenopathy - Respiratory Respiratory: bilateral: other (mechanically ventilated, no adventitious breath sounds appreciated) - Gastrointestinal General gastrointestinal: Present: normal bowel sounds, soft - Musculoskeletal Musculoskeletal: Absent: gait normal, generalized weakness, strength equal bilaterally, right sided weakness, left sided weakness - Psychiatric Psychiatric: Absent: A&O x's 3, appropriate affect, intact judgment & insight - Labs CBC & Chem 7: 02/03/18 04:35 02/03/18 04:35 Labs: Abnormal Lab Results - Last 24 Hours (Table) 01/31/18 02/02/18 02/02/18 Range/Units 16:51 14:08 15:27 WBC (3.8-10.6) k/uL RBC (4.30-5.90) m/uL Hgb (13.0-17.5) gm/dL Hct (39.0-53.0) % Neutrophils # (1.3-7.7) k/uL Monocytes # (0-1.0) k/uL ABG pH (7.35-7.45) ABG pCO2 (35-45) mmHg ABG pO2 50 L* (83-108) mmHg ABG HCO3 (21-25) mmol/L ABG Total CO2 (19-24) mmol/L Chloride (98-107) mmol/L BUN (9-20) mg/dL Creatinine (0.66-1.25) mg/dL Glucose (74-99) mg/dL POC Glucose (mg/dL) 169 H 148 H (75-99) mg/dL Magnesium (1.6-2.3) mg/dL Alkaline Phosphatase (38-126) U/L Total Protein (6.3-8.2) g/dL Albumin (3.5-5.0) g/dL 02/02/18 02/02/18 02/02/18 Range/Units 16:21 17:06 18:15 WBC (3.8-10.6) k/uL RBC (4.30-5.90) m/uL Hgb (13.0-17.5) gm/dL Hct (39.0-53.0) % Neutrophils # (1.3-7.7) k/uL Monocytes # (0-1.0) k/uL ABG pH (7.35-7.45) ABG pCO2 (35-45) mmHg ABG pO2 (83-108) mmHg ABG HCO3 (21-25) mmol/L ABG Total CO2 (19-24) mmol/L Chloride (98-107) mmol/L BUN (9-20) mg/dL Creatinine (0.66-1.25) mg/dL Glucose (74-99) mg/dL POC Glucose (mg/dL) 132 H 126 H 116 H (75-99) mg/dL Magnesium (1.6-2.3) mg/dL Alkaline Phosphatase (38-126) U/L Total Protein (6.3-8.2) g/dL Albumin (3.5-5.0) g/dL 02/02/18 02/02/18 02/02/18 Range/Units 19:01 20:12 21:21 WBC (3.8-10.6) k/uL RBC (4.30-5.90) m/uL Hgb (13.0-17.5) gm/dL Hct (39.0-53.0) % Neutrophils # (1.3-7.7) k/uL Monocytes # (0-1.0) k/uL ABG pH (7.35-7.45) ABG pCO2 (35-45) mmHg ABG pO2 (83-108) mmHg ABG HCO3 (21-25) mmol/L ABG Total CO2 (19-24) mmol/L Chloride (98-107) mmol/L BUN (9-20) mg/dL Creatinine (0.66-1.25) mg/dL Glucose (74-99) mg/dL POC Glucose (mg/dL) 115 H 121 H 135 H (75-99) mg/dL Magnesium (1.6-2.3) mg/dL Alkaline Phosphatase (38-126) U/L Total Protein (6.3-8.2) g/dL Albumin (3.5-5.0) g/dL 02/02/18 02/02/18 02/03/18 Range/Units 22:21 23:01 00:11 WBC (3.8-10.6) k/uL RBC (4.30-5.90) m/uL Hgb (13.0-17.5) gm/dL Hct (39.0-53.0) % Neutrophils # (1.3-7.7) k/uL Monocytes # (0-1.0) k/uL ABG pH (7.35-7.45) ABG pCO2 (35-45) mmHg ABG pO2 (83-108) mmHg ABG HCO3 (21-25) mmol/L ABG Total CO2 (19-24) mmol/L Chloride (98-107) mmol/L BUN (9-20) mg/dL Creatinine (0.66-1.25) mg/dL Glucose (74-99) mg/dL POC Glucose (mg/dL) 150 H 149 H 133 H (75-99) mg/dL Magnesium (1.6-2.3) mg/dL Alkaline Phosphatase (38-126) U/L Total Protein (6.3-8.2) g/dL Albumin (3.5-5.0) g/dL 02/03/18 02/03/18 02/03/18 Range/Units 01:15 02:10 03:12 WBC (3.8-10.6) k/uL RBC (4.30-5.90) m/uL Hgb (13.0-17.5) gm/dL Hct (39.0-53.0) % Neutrophils # (1.3-7.7) k/uL Monocytes # (0-1.0) k/uL ABG pH (7.35-7.45) ABG pCO2 (35-45) mmHg ABG pO2 (83-108) mmHg ABG HCO3 (21-25) mmol/L ABG Total CO2 (19-24) mmol/L Chloride (98-107) mmol/L BUN (9-20) mg/dL Creatinine (0.66-1.25) mg/dL Glucose (74-99) mg/dL POC Glucose (mg/dL) 124 H 123 H 123 H (75-99) mg/dL Magnesium (1.6-2.3) mg/dL Alkaline Phosphatase (38-126) U/L Total Protein (6.3-8.2) g/dL Albumin (3.5-5.0) g/dL 02/03/18 02/03/18 02/03/18 Range/Units 04:02 04:30 04:35 WBC (3.8-10.6) k/uL RBC (4.30-5.90) m/uL Hgb (13.0-17.5) gm/dL Hct (39.0-53.0) % Neutrophils # (1.3-7.7) k/uL Monocytes # (0-1.0) k/uL ABG pH 7.32 L (7.35-7.45) ABG pCO2 51 H (35-45) mmHg ABG pO2 (83-108) mmHg ABG HCO3 27 H (21-25) mmol/L ABG Total CO2 28 H (19-24) mmol/L Chloride 108 H (98-107) mmol/L BUN 31 H (9-20) mg/dL Creatinine 1.58 H (0.66-1.25) mg/dL Glucose 115 H (74-99) mg/dL POC Glucose (mg/dL) 122 H (75-99) mg/dL Magnesium 2.7 H (1.6-2.3) mg/dL Alkaline Phosphatase 37 L (38-126) U/L Total Protein 5.1 L (6.3-8.2) g/dL Albumin 3.0 L (3.5-5.0) g/dL 02/03/18 02/03/18 02/03/18 Range/Units 04:35 04:59 06:05 WBC 28.2 H (3.8-10.6) k/uL RBC 3.51 L (4.30-5.90) m/uL Hgb 10.8 L (13.0-17.5) gm/dL Hct 33.5 L (39.0-53.0) % Neutrophils # 24.0 H (1.3-7.7) k/uL Monocytes # 2.2 H (0-1.0) k/uL ABG pH (7.35-7.45) ABG pCO2 (35-45) mmHg ABG pO2 (83-108) mmHg ABG HCO3 (21-25) mmol/L ABG Total CO2 (19-24) mmol/L Chloride (98-107) mmol/L BUN (9-20) mg/dL Creatinine (0.66-1.25) mg/dL Glucose (74-99) mg/dL POC Glucose (mg/dL) 129 H 124 H (75-99) mg/dL Magnesium (1.6-2.3) mg/dL Alkaline Phosphatase (38-126) U/L Total Protein (6.3-8.2) g/dL Albumin (3.5-5.0) g/dL 02/03/18 02/03/18 02/03/18 Range/Units 06:55 08:24 10:09 WBC (3.8-10.6) k/uL RBC (4.30-5.90) m/uL Hgb (13.0-17.5) gm/dL Hct (39.0-53.0) % Neutrophils # (1.3-7.7) k/uL Monocytes # (0-1.0) k/uL ABG pH (7.35-7.45) ABG pCO2 (35-45) mmHg ABG pO2 (83-108) mmHg ABG HCO3 (21-25) mmol/L ABG Total CO2 (19-24) mmol/L Chloride (98-107) mmol/L BUN (9-20) mg/dL Creatinine (0.66-1.25) mg/dL Glucose (74-99) mg/dL POC Glucose (mg/dL) 115 H 132 H 124 H (75-99) mg/dL Magnesium (1.6-2.3) mg/dL Alkaline Phosphatase (38-126) U/L Total Protein (6.3-8.2) g/dL Albumin (3.5-5.0) g/dL 02/03/18 02/03/18 Range/Units 12:02 12:56 WBC (3.8-10.6) k/uL RBC (4.30-5.90) m/uL Hgb (13.0-17.5) gm/dL Hct (39.0-53.0) % Neutrophils # (1.3-7.7) k/uL Monocytes # (0-1.0) k/uL ABG pH (7.35-7.45) ABG pCO2 (35-45) mmHg ABG pO2 (83-108) mmHg ABG HCO3 (21-25) mmol/L ABG Total CO2 (19-24) mmol/L Chloride (98-107) mmol/L BUN (9-20) mg/dL Creatinine (0.66-1.25) mg/dL Glucose (74-99) mg/dL POC Glucose (mg/dL) 112 H 140 H (75-99) mg/dL Magnesium (1.6-2.3) mg/dL Alkaline Phosphatase (38-126) U/L Total Protein (6.3-8.2) g/dL Albumin (3.5-5.0) g/dL Microbiology - Last 24 Hours (Table) 02/03/18 01:25 Sputum Culture - Preliminary Sputum Assessment and Plan (1) Leukocytosis Narrative/Plan: Lymphocyte count has normalized, now there is a noted increase in neutrophils, WBC remains elevated but does not appear to be incrementally increasing at this time. Cont to monitor CBC and diff, flow is still pending Suspect and underlying chronic leukemic condition. No acute therapy is necessary. Will cont to follow pt, further work up as needed. Case discussed with Cardiothoracic [employer] TECHNICIAN Current Visit: Yes Status: Chronic Priority: Medium Code(s): D72.829 - ELEVATED WHITE BLOOD CELL COUNT, UNSPECIFIED SNOMED Code(s): 011832150
[2018-02-03 14:20] LABS: Glucose,Whole Blood 138 mg/dL (75-99)
[2018-02-03 16:24] LABS: Glucose,Whole Blood 125 mg/dL (75-99)
[2018-02-03 18:14] LABS: Glucose,Whole Blood 122 mg/dL (75-99)
[2018-02-03 20:10] LABS: Glucose,Whole Blood 140 mg/dL (75-99)
[2018-02-03] MEDS: SENNOSIDES-DOCUSATE SODIUM 1 EACH TAB PO SCH (20:58)
[2018-02-03 22:12] LABS: Glucose,Whole Blood 143 mg/dL (75-99)
--- NOTE | 2018-02-03 23:09 | P.PN ---
Subjective Progress Note Date: 02/02/18 Principal diagnosis: Non-ST elevated MT status post coronary artery bypass graft. Mr. Castillo is a 42-year-old male with a past medical history of hypertension, hyperlipidemia, nicotine dependence, coronary artery disease with prior stenting performed in 2003 2004 in [place] coming into the hospital with a chief complaint of chest discomfort in the upper mid sternum. Patient describes it as severe tightness and heaviness and he was short of breath and diaphoretic. Patient pain was so severe that he was unable to speak at the time when he had the chest pain. In the ED patient had elevated troponins and started on IV heparin. Patient subsequently underwent cardiac cath which revealed a total occluded right coronary artery that appeared to be chronically occluded. There is also a complex lesion and in-stent restenosis of the proximal LAD. So he was recommended to get a coronary artery bypass graft that is scheduled for tomorrow morning. Patient has risk factors of smoking for the past 26 years almost 1 pack per day. 02/01/18 - patient is postop day 1. Patient is in the ICU currently on mechanical ventilation. He is sedated with propofol, Nimbex and fentanyl. Patient was hypoxemic on 100% FiO2 yesterday, which could be due to acute lung injury. So his ventilator settings have been adjusted by Dr. Gipson. He is still on Cardizem drip. On 02/02/2018 Patient is still on mechanical ventilator and sedated.. Currently on Cardizem drip. Also present on insulin drip. Dobbhoff tube was placed for nutrition. Chest x-ray showed left lower lobe atelectasis and infiltrate. Patient is with pleural chest tube. Mediastinal chest tube was removed. No fever noted. Pulmonary, CT surgery is following. Current medications reviewed. Objective - Vital Signs Vital signs: Vital Signs Temp 97.9 F 02/02/18 16:00 Pulse 76 02/02/18 18:00 Resp 34 H 02/02/18 18:00 BP 113/68 02/02/18 18:00 Pulse Ox 95 02/02/18 18:00 Intake & Output 02/01/18 02/02/18 02/02/18 18:59 06:59 18:59 Intake Total 4348.616 8103.754 1443.779 Output Total 1642 729 515 Balance 250.648 908.754 928.779 Weight 107.3 kg 109.9 kg 109.9 kg Intake: IV 1028 988 778 ACETAMINOPHEN IV (For NPO 200 ) 1,000 mg In Empty Bag 1 bag @ 400 mls/hr IVPB Q6H [facility] Rx#:[id number] Cardiac Output 120 280 70 Lactated Ringers 1,000 ml 600 600 600 @ 50 mls/hr IV .Q20H [facility] Rx#:[id number] Pressure Bag 108 108 108 Intake, IV Titration 864.648 599.754 545.779 Amount Cisatracurium 200 mg In 54.594 67.383 9.11 Sodium Chloride 0.9% 180 ml @ 1 MCG/KG/MIN 6.05 mls/hr IV .Q24H [facility] Rx#: [id number] Clevidipine Butyrate 25 12 126.534 32 mg In Empty Bag 1 bag @ 1 MG/HR 2 mls/hr IV .Q24H [facility] Rx#:[id number] Diltiazem 50 mg In Sodium 101.001 Chloride 0.9% 40 ml @ 5 MG/HR 5 mls/hr IV .Q10H [facility] Rx#:[id number] Diltiazem 50 mg In Sodium 18.958 81.75 Chloride 0.9% 40 ml @ Per Protocol IV .Q0M [facility] Rx#:[id number] Insulin Regular 100 unit 2.953 41.940 122.919 In Sodium Chloride 0.9% 100 ml @ Per Protocol IV .Q0M [facility] Rx#:[id number] Nitroglycerin-D5w Pmx 50 31.85 mg In Dextrose/Water 1 250ml.bag @ 5 MCG/MIN 1.5 mls/hr IV .Q24H [facility] Rx#: [id number] Propofol 1,000 mg In 436.750 344.939 300.000 Empty Bag 1 bag @ Titrate IV .Q0M [facility] Rx#: [id number] cefTRIAXone 2,000 mg In 100 Sodium Chloride 0.9% 100 ml @ 100 mls/hr IVPB Q24HR [facility] Rx#:[id number] fentaNYL (PF) 2,500 mcg 125.500 In Sodium Chloride 0.9% 200 ml @ 50 MCG/HR 5 mls/ hr IV .Q24H [facility] Rx#: [id number] Oral 50 Tube Feeding 120 Output: Chest Tube Drainage 107 225 50 bilateral mediastinal 65 65 0 left pleural 42 160 50 Gastric Drainage 150 Drainage 10 left forearm 10 Urine 1375 504 465 Other: Voiding Method Indwelling Catheter Indwelling Catheter Indwelling Catheter ABP, PAP, CO, CI - Last Documented Arterial Blood Pressure 115/74 Pulmonary Artery Pressure 36/26 Cardiac Output 5.8 Cardiac Index 2.6 - Exam GENERAL: Patient is mechanically ventilated and sedated. HEENT: Endotracheal tube and orogastric tube in place CARDIOVASCULAR: S1 and S2 present. No murmurs, rubs, or gallops. PULMONARY: Diminished breath sounds at the lower lung bases. No crackles or wheezes. ABDOMEN: Soft, nontender, nondistended, normoactive bowel sounds. No palpable organomegaly. EXTREMITIES: Mild cyanosis of the ear lobules. No edema. NEUROLOGICAL: Could not be assessed as he is sedated SKIN: No rashes. - Labs CBC & Chem 7: 02/03/18 04:35 02/03/18 04:35 Labs: Abnormal Lab Results - Last 24 Hours (Table) 02/01/18 02/01/18 02/01/18 Range/Units 20:09 21:53 22:50 WBC (3.8-10.6) k/uL RBC (4.30-5.90) m/uL Neutrophils # (1.3-7.7) k/uL Monocytes # (0-1.0) k/uL Basophils # (0-0.2) k/uL ABG pH 7.34 L (7.35-7.45) ABG pCO2 47 H (35-45) mmHg ABG pO2 58 L* (83-108) mmHg ABG Total CO2 27 H (19-24) mmol/L ABG O2 Saturation 88.9 L (94-97) % Carbon Dioxide (22-30) mmol/L Glucose (74-99) mg/dL POC Glucose (mg/dL) 141 H 162 H (75-99) mg/dL Magnesium (1.6-2.3) mg/dL ALT (21-72) U/L Total Protein (6.3-8.2) g/dL 02/01/18 02/01/18 02/02/18 Range/Units 23:14 23:59 01:01 WBC (3.8-10.6) k/uL RBC (4.30-5.90) m/uL Neutrophils # (1.3-7.7) k/uL Monocytes # (0-1.0) k/uL Basophils # (0-0.2) k/uL ABG pH (7.35-7.45) ABG pCO2 (35-45) mmHg ABG pO2 (83-108) mmHg ABG Total CO2 (19-24) mmol/L ABG O2 Saturation (94-97) % Carbon Dioxide (22-30) mmol/L Glucose (74-99) mg/dL POC Glucose (mg/dL) 153 H 152 H 144 H (75-99) mg/dL Magnesium (1.6-2.3) mg/dL ALT (21-72) U/L Total Protein (6.3-8.2) g/dL 02/02/18 02/02/18 02/02/18 Range/Units 02:22 04:04 04:20 WBC (3.8-10.6) k/uL RBC (4.30-5.90) m/uL Neutrophils # (1.3-7.7) k/uL Monocytes # (0-1.0) k/uL Basophils # (0-0.2) k/uL ABG pH (7.35-7.45) ABG pCO2 (35-45) mmHg ABG pO2 (83-108) mmHg ABG Total CO2 (19-24) mmol/L ABG O2 Saturation (94-97) % Carbon Dioxide 20 L (22-30) mmol/L Glucose 215 H (74-99) mg/dL POC Glucose (mg/dL) 152 H 218 H (75-99) mg/dL Magnesium 2.4 H (1.6-2.3) mg/dL ALT 90 H (21-72) U/L Total Protein 6.1 L (6.3-8.2) g/dL 02/02/18 02/02/18 02/02/18 Range/Units 04:20 05:03 05:03 WBC 34.0 H (3.8-10.6) k/uL RBC 4.16 L (4.30-5.90) m/uL Neutrophils # 29.1 H (1.3-7.7) k/uL Monocytes # 1.4 H (0-1.0) k/uL Basophils # 0.3 H (0-0.2) k/uL ABG pH 7.16 L* (7.35-7.45) ABG pCO2 61 H (35-45) mmHg ABG pO2 82 L (83-108) mmHg ABG Total CO2 (19-24) mmol/L ABG O2 Saturation 93.6 L (94-97) % Carbon Dioxide (22-30) mmol/L Glucose (74-99) mg/dL POC Glucose (mg/dL) 246 H (75-99) mg/dL Magnesium (1.6-2.3) mg/dL ALT (21-72) U/L Total Protein (6.3-8.2) g/dL 02/02/18 02/02/18 02/02/18 Range/Units 06:05 07:02 07:57 WBC (3.8-10.6) k/uL RBC (4.30-5.90) m/uL Neutrophils # (1.3-7.7) k/uL Monocytes # (0-1.0) k/uL Basophils # (0-0.2) k/uL ABG pH 7.32 L (7.35-7.45) ABG pCO2 48 H (35-45) mmHg ABG pO2 62 L (83-108) mmHg ABG Total CO2 26 H (19-24) mmol/L ABG O2 Saturation 91.2 L (94-97) % Carbon Dioxide (22-30) mmol/L Glucose (74-99) mg/dL POC Glucose (mg/dL) 268 H 235 H (75-99) mg/dL Magnesium (1.6-2.3) mg/dL ALT (21-72) U/L Total Protein (6.3-8.2) g/dL 02/02/18 02/02/18 02/02/18 Range/Units 08:31 09:03 10:10 WBC (3.8-10.6) k/uL RBC (4.30-5.90) m/uL Neutrophils # (1.3-7.7) k/uL Monocytes # (0-1.0) k/uL Basophils # (0-0.2) k/uL ABG pH (7.35-7.45) ABG pCO2 (35-45) mmHg ABG pO2 (83-108) mmHg ABG Total CO2 (19-24) mmol/L ABG O2 Saturation (94-97) % Carbon Dioxide (22-30) mmol/L Glucose (74-99) mg/dL POC Glucose (mg/dL) 196 H 174 H 202 H (75-99) mg/dL Magnesium (1.6-2.3) mg/dL ALT (21-72) U/L Total Protein (6.3-8.2) g/dL 02/02/18 02/02/18 02/02/18 Range/Units 12:13 13:16 14:08 WBC (3.8-10.6) k/uL RBC (4.30-5.90) m/uL Neutrophils # (1.3-7.7) k/uL Monocytes # (0-1.0) k/uL Basophils # (0-0.2) k/uL ABG pH (7.35-7.45) ABG pCO2 (35-45) mmHg ABG pO2 (83-108) mmHg ABG Total CO2 (19-24) mmol/L ABG O2 Saturation (94-97) % Carbon Dioxide (22-30) mmol/L Glucose (74-99) mg/dL POC Glucose (mg/dL) 207 H 175 H 169 H (75-99) mg/dL Magnesium (1.6-2.3) mg/dL ALT (21-72) U/L Total Protein (6.3-8.2) g/dL 02/02/18 02/02/18 02/02/18 Range/Units 15:27 16:21 17:06 WBC (3.8-10.6) k/uL RBC (4.30-5.90) m/uL Neutrophils # (1.3-7.7) k/uL Monocytes # (0-1.0) k/uL Basophils # (0-0.2) k/uL ABG pH (7.35-7.45) ABG pCO2 (35-45) mmHg ABG pO2 (83-108) mmHg ABG Total CO2 (19-24) mmol/L ABG O2 Saturation (94-97) % Carbon Dioxide (22-30) mmol/L Glucose (74-99) mg/dL POC Glucose (mg/dL) 148 H 132 H 126 H (75-99) mg/dL Magnesium (1.6-2.3) mg/dL ALT (21-72) U/L Total Protein (6.3-8.2) g/dL Assessment and Plan Assessment: Status post two-vessel coronary artery bypass grafting - postop day 2 Acute hypoxic respiratory- suspected ARDS Acute coronary syndrome/non-ST elevated MT Current smoker with a 26 pack years Hypertensive Obesity Plan: This is a pleasant 42 years old male who presents because of MT. Cardiology and Cardiothoracic surgery following the patient. Patient had CABG done on 2017. Postop patient has been placed on mechanical ventilation and he developed hypoxia. ABG done showing the same. So this is a picture of ALD/ARDS. Pulmonary on board following the patient closely and making changes in his ventilator settings. Monitor lytes and vitals. DVT and GI prophylaxis. Further recommendations depending on the progress of the patient. Prognosis guarded. Time with Patient: Greater than 30
--- NOTE | 2018-02-03 23:13 | P.PN ---
Subjective Progress Note Date: 02/03/18 Principal diagnosis: Non-ST elevated LA status post coronary artery bypass graft. Mr. Castillo is a 42-year-old male with a past medical history of hypertension, hyperlipidemia, nicotine dependence, coronary artery disease with prior stenting performed in 2003 2004 in [place] coming into the hospital with a chief complaint of chest discomfort in the upper mid sternum. Patient describes it as severe tightness and heaviness and he was short of breath and diaphoretic. Patient pain was so severe that he was unable to speak at the time when he had the chest pain. In the ED patient had elevated troponins and started on IV heparin. Patient subsequently underwent cardiac cath which revealed a total occluded right coronary artery that appeared to be chronically occluded. There is also a complex lesion and in-stent restenosis of the proximal LAD. So he was recommended to get a coronary artery bypass graft that is scheduled for tomorrow morning. Patient has risk factors of smoking for the past 26 years almost 1 pack per day. 02/01/18 - patient is postop day 1. Patient is in the ICU currently on mechanical ventilation. He is sedated with propofol, Nimbex and fentanyl. Patient was hypoxemic on 100% FiO2 yesterday, which could be due to acute lung injury. So his ventilator settings have been adjusted by Dr. Gipson. He is still on Cardizem drip. On 02/02/2018 Patient is still on mechanical ventilator and sedated.. Currently on Cardizem drip. Also present on insulin drip. Dobbhoff tube was placed for nutrition. Chest x-ray showed left lower lobe atelectasis and infiltrate. Patient is with pleural chest tube. Mediastinal chest tube was removed. No fever noted. Pulmonary, CT surgery is following. 02/03/2018 Patient had postoperative hypoxemic respiratory failure due to suspected ARDS. Currently patient is on mechanical ventilator. Currently Cardizem drip is off. Feeding Dobbhoff tube. Currently patient is sedated. Review of systems could not be apparent from the patient Chest x-ray showed no acute cardiopulmonary process. Current medications reviewed. Active Medications Generic Name Dose Route Start Last Admin Trade Name Freq PRN Reason Stop Dose Admin Hydrocodone Bitart/Acetaminophen 2 each 02/01/18 10:47 02/03/18 18:25 Salmon 5-325 PO 2 each Q4HR PRN Administration Severe Pain Hydrocodone Bitart/Acetaminophen 1 each 02/01/18 10:47 02/03/18 14:25 Salmon 5-325 PO 1 each Q4HR PRN Administration Moderate Pain Albuterol/Ipratropium 3 ml 01/31/18 14:37 Duoneb 0.5 Mg-3 Mg/3 Ml Soln INHALATION RT-Q2H PRN Shortness Of Breath Or Wheezing Albuterol/Ipratropium 3 ml 02/03/18 12:00 02/03/18 19:01 Duoneb 0.5 Mg-3 Mg/3 Ml Soln INHALATION 3 ml RT-Q4H NICHOLAS Administration Amlodipine Besylate 5 mg 02/04/18 12:00 Norvasc PO DAILY@1200 NICHOLAS Artificial Tears 2 drops 01/31/18 21:00 02/03/18 20:57 Artificial Tear Drops BOTH EYES 2 drops Q4HR NICHOLAS Administration Aspirin 325 mg 02/01/18 09:00 02/03/18 08:45 Aspirin PO 325 mg DAILY NICHOLAS Administration Atorvastatin Calcium 40 mg 02/01/18 09:00 02/03/18 08:45 Lipitor PO 40 mg DAILY NICHOLAS Administration Benzocaine/Menthol 1 each 01/31/18 14:37 Cepacol Lozenge MUCOUS MEM Q2H PRN Sore Throat Bisacodyl 10 mg 02/01/18 10:48 02/03/18 08:45 Dulcolax RECTAL 10 mg DAILY PRN Administration Constipation Budesonide 1 mg 02/02/18 20:00 02/03/18 19:01 Pulmicort INHALATION 1 mg RT-BID NICHOLAS Administration Chlorhexidine Gluconate 15 ml 02/01/18 21:00 02/03/18 20:58 Peridex MUCOUS MEM 15 ml BID NICHOLAS Administration Clopidogrel Bisulfate 75 mg 02/01/18 09:00 02/03/18 08:45 Plavix PO 75 mg DAILY NICHOLAS Administration Formoterol Fumarate 20 mcg 02/02/18 20:00 02/03/18 19:30 Perforomist INHALATION 20 mcg RT-BID NICHOLAS Administration Heparin Sodium (Porcine) 5,000 unit 01/31/18 18:50 02/03/18 16:17 Heparin SQ 5,000 unit Q8HR NICHOLAS Administration Hydralazine HCl 20 mg 02/02/18 09:38 Apresoline IVP Q4HR PRN Blood Pressure - High Amiodarone HCl 150 mg/ 103 mls @ 618 mls/hr 01/31/18 14:37 Dextrose/Water IV .Q10M PRN Per protocol Protocol Amiodarone HCl 450 mg/ 259 mls @ 34.53 mls/hr 01/31/18 14:37 Dextrose/Water IV .Q7H31M PRN Per Protocol Protocol 1 MG/MIN Insulin Human Regular 100 unit 101 mls @ 0 mls/hr 01/31/18 15:15 02/03/18 20: 06 / Sodium Chloride IV 10 unit/hr .Q0M NICHOLAS 10.1 mls/hr Titration Protocol Per Protocol Lactated Ringer's 1,000 mls @ 50 mls/hr 01/31/18 14:37 02/03/18 04:29 Lactated Ringers IV 50 mls/hr .Q20H NICHOLAS Administration Propofol 1,000 mg/ IV Solution 100 mls @ 0 mls/hr 01/31/18 14:37 02/03/18 22: 59 IV 70 mcg/kg/min .Q0M NICHOLAS 42.79 mls/hr Administration Protocol Titrate Fentanyl Citrate 2,500 mcg/ 250 mls @ 5 mls/hr 01/31/18 19:30 02/03/18 11:43 Sodium Chloride IV Not Given .Q24H NICHOLAS 50 MCG/HR Cisatracurium Besylate 200 mg/ 200 mls @ 6.05 mls/hr 01/31/18 21:00 02/03/18 08:20 Sodium Chloride IV 0 mcg/kg/min .Q24H NICHOLAS 0 mls/hr Titration Protocol 1 MCG/KG/MIN Ceftriaxone Sodium 2,000 mg/ 100 mls @ 100 mls/hr 02/01/18 12:00 02/03/18 09: 53 Sodium Chloride IVPB 100 mls/hr Q24HR NICHOLAS Administration Magnesium Hydroxide 2,400 mg 02/01/18 10:48 Milk Of Magnesia PO BID PRN Constipation Methylprednisolone Sodium Succinate 60 mg 02/01/18 00:00 02/03/18 19:07 Solu-Medrol IV 60 mg Q6HR NICHOLAS Administration Metoclopramide HCl 10 mg 01/31/18 14:37 Reglan IVP Q4H PRN Nausea And Vomiting Metoprolol Tartrate 50 mg 02/02/18 21:00 02/03/18 20:58 Lopressor PO 50 mg Q12HR NICHOLAS Administration Miscellaneous Information 1 each 01/31/18 14:37 Magnesium Per Protocol MISCELLANE DAILY PRN Per Protocol Protocol Miscellaneous Information 1 each 01/31/18 14:37 Phosphorus Per Protocol MISCELLANE DAILY PRN Per Protocol Protocol Miscellaneous Information 1 each 01/31/18 14:37 Potassium Per Protocol MISCELLANE DAILY PRN Per Protocol Protocol Morphine Sulfate 2 mg 01/31/18 14:37 02/02/18 03:29 Morphine Sulfate (Inj) IVP 2 mg Q2H PRN Administration Severe Pain Ondansetron HCl 4 mg 01/31/18 14:37 Zofran IVP Q6HR PRN Nausea And Vomiting Pantoprazole Sodium 40 mg 02/01/18 09:00 02/03/18 08:45 Protonix IVP 40 mg DAILY NICHOLAS Administration Senna/Docusate Sodium 2 each 02/01/18 21:00 02/03/18 20:58 Senokot-S PO 2 each HS NICHOLAS Administration Sodium Chloride 10 ml 01/31/18 21:00 02/03/18 20:58 Saline Flush IV 10 ml BID NICHOLAS Administration Objective - Vital Signs Vital signs: Vital Signs Temp 97.9 F 02/03/18 11:30 Pulse 77 02/03/18 11:47 Resp 34 H 02/03/18 11:30 BP 100/59 02/03/18 02:00 Pulse Ox 98 02/03/18 11:30 Intake & Output 02/02/18 02/03/18 02/03/18 18:59 06:59 18:59 Intake Total 5480.824 2016.395 1130.545 Output Total 515 705 350 Balance 1028.779 701.395 780.545 Weight 109.9 kg 101.9 kg 101.9 kg Intake: IV 778 708 315 Cardiac Output 70 20 Lactated Ringers 1,000 ml 600 600 250 @ 50 mls/hr IV .Q20H NICHOLAS Rx#:[id number] Pressure Bag 108 108 45 Intake, IV Titration 645.779 538.395 618.545 Amount Cisatracurium 200 mg In 9.11 67.343 62.013 Sodium Chloride 0.9% 180 ml @ 1 MCG/KG/MIN 6.05 mls/hr IV .Q24H NICHOLAS Rx#: [id number] Clevidipine Butyrate 25 32 8.133 mg In Empty Bag 1 bag @ 1 MG/HR 2 mls/hr IV .Q24H NICHOLAS Rx#:[id number] Diltiazem 50 mg In Sodium 81.75 50 Chloride 0.9% 40 ml @ Per Protocol IV .Q0M NICHOLAS Rx#:[id number] Insulin Regular 100 unit 122.919 112.919 57.465 In Sodium Chloride 0.9% 100 ml @ Per Protocol IV .Q0M NICHOLAS Rx#:[id number] Propofol 1,000 mg In 400.000 300.000 200 Empty Bag 1 bag @ Titrate IV .Q0M NICHOLAS Rx#: [id number] cefTRIAXone 2,000 mg In 100 Sodium Chloride 0.9% 100 ml @ 100 mls/hr IVPB Q24HR NICHOLAS Rx#:[id number] fentaNYL (PF) 2,500 mcg 199.067 In Sodium Chloride 0.9% 200 ml @ 50 MCG/HR 5 mls/ hr IV .Q24H NICHOLAS Rx#: [id number] Tube Feeding 120 160 107 Other 90 Output: Chest Tube Drainage 50 30 30 bilateral mediastinal 0 left pleural 50 30 30 Drainage 15 left forearm 15 Urine 465 660 320 Other: Voiding Method Indwelling Catheter Indwelling Catheter Indwelling Catheter ABP, PAP, CO, CI - Last Documented Arterial Blood Pressure 128/76 Pulmonary Artery Pressure 33/23 Cardiac Output 6.4 Cardiac Index 2.9 - Exam GENERAL: Patient is mechanically ventilated and sedated. HEENT: Endotracheal tube and orogastric tube in place CARDIOVASCULAR: S1 and S2 present. No murmurs, rubs, or gallops. PULMONARY: Diminished breath sounds at the lower lung bases. No crackles or wheezes. ABDOMEN: Soft, nontender, nondistended, normoactive bowel sounds. No palpable organomegaly. EXTREMITIES: Mild cyanosis of the ear lobules. No edema. NEUROLOGICAL: Could not be assessed as he is sedated SKIN: No rashes. - Labs CBC & Chem 7: 02/03/18 04:35 02/03/18 04:35 Labs: Abnormal Lab Results - Last 24 Hours (Table) 01/31/18 02/02/18 02/02/18 Range/Units 16:51 13:16 14:08 WBC (3.8-10.6) k/uL RBC (4.30-5.90) m/uL Hgb (13.0-17.5) gm/dL Hct (39.0-53.0) % Neutrophils # (1.3-7.7) k/uL Monocytes # (0-1.0) k/uL ABG pH (7.35-7.45) ABG pCO2 (35-45) mmHg ABG pO2 50 L* (83-108) mmHg ABG HCO3 (21-25) mmol/L ABG Total CO2 (19-24) mmol/L Chloride (98-107) mmol/L BUN (9-20) mg/dL Creatinine (0.66-1.25) mg/dL Glucose (74-99) mg/dL POC Glucose (mg/dL) 175 H 169 H (75-99) mg/dL Magnesium (1.6-2.3) mg/dL Alkaline Phosphatase (38-126) U/L Total Protein (6.3-8.2) g/dL Albumin (3.5-5.0) g/dL 02/02/18 02/02/18 02/02/18 Range/Units 15:27 16:21 17:06 WBC (3.8-10.6) k/uL RBC (4.30-5.90) m/uL Hgb (13.0-17.5) gm/dL Hct (39.0-53.0) % Neutrophils # (1.3-7.7) k/uL Monocytes # (0-1.0) k/uL ABG pH (7.35-7.45) ABG pCO2 (35-45) mmHg ABG pO2 (83-108) mmHg ABG HCO3 (21-25) mmol/L ABG Total CO2 (19-24) mmol/L Chloride (98-107) mmol/L BUN (9-20) mg/dL Creatinine (0.66-1.25) mg/dL Glucose (74-99) mg/dL POC Glucose (mg/dL) 148 H 132 H 126 H (75-99) mg/dL Magnesium (1.6-2.3) mg/dL Alkaline Phosphatase (38-126) U/L Total Protein (6.3-8.2) g/dL Albumin (3.5-5.0) g/dL 02/02/18 02/02/18 02/02/18 Range/Units 18:15 19:01 20:12 WBC (3.8-10.6) k/uL RBC (4.30-5.90) m/uL Hgb (13.0-17.5) gm/dL Hct (39.0-53.0) % Neutrophils # (1.3-7.7) k/uL Monocytes # (0-1.0) k/uL ABG pH (7.35-7.45) ABG pCO2 (35-45) mmHg ABG pO2 (83-108) mmHg ABG HCO3 (21-25) mmol/L ABG Total CO2 (19-24) mmol/L Chloride (98-107) mmol/L BUN (9-20) mg/dL Creatinine (0.66-1.25) mg/dL Glucose (74-99) mg/dL POC Glucose (mg/dL) 116 H 115 H 121 H (75-99) mg/dL Magnesium (1.6-2.3) mg/dL Alkaline Phosphatase (38-126) U/L Total Protein (6.3-8.2) g/dL Albumin (3.5-5.0) g/dL 02/02/18 02/02/18 02/02/18 Range/Units 21:21 22:21 23:01 WBC (3.8-10.6) k/uL RBC (4.30-5.90) m/uL Hgb (13.0-17.5) gm/dL Hct (39.0-53.0) % Neutrophils # (1.3-7.7) k/uL Monocytes # (0-1.0) k/uL ABG pH (7.35-7.45) ABG pCO2 (35-45) mmHg ABG pO2 (83-108) mmHg ABG HCO3 (21-25) mmol/L ABG Total CO2 (19-24) mmol/L Chloride (98-107) mmol/L BUN (9-20) mg/dL Creatinine (0.66-1.25) mg/dL Glucose (74-99) mg/dL POC Glucose (mg/dL) 135 H 150 H 149 H (75-99) mg/dL Magnesium (1.6-2.3) mg/dL Alkaline Phosphatase (38-126) U/L Total Protein (6.3-8.2) g/dL Albumin (3.5-5.0) g/dL 02/03/18 02/03/18 02/03/18 Range/Units 00:11 01:15 02:10 WBC (3.8-10.6) k/uL RBC (4.30-5.90) m/uL Hgb (13.0-17.5) gm/dL Hct (39.0-53.0) % Neutrophils # (1.3-7.7) k/uL Monocytes # (0-1.0) k/uL ABG pH (7.35-7.45) ABG pCO2 (35-45) mmHg ABG pO2 (83-108) mmHg ABG HCO3 (21-25) mmol/L ABG Total CO2 (19-24) mmol/L Chloride (98-107) mmol/L BUN (9-20) mg/dL Creatinine (0.66-1.25) mg/dL Glucose (74-99) mg/dL POC Glucose (mg/dL) 133 H 124 H 123 H (75-99) mg/dL Magnesium (1.6-2.3) mg/dL Alkaline Phosphatase (38-126) U/L Total Protein (6.3-8.2) g/dL Albumin (3.5-5.0) g/dL 02/03/18 02/03/18 02/03/18 Range/Units 03:12 04:02 04:30 WBC (3.8-10.6) k/uL RBC (4.30-5.90) m/uL Hgb (13.0-17.5) gm/dL Hct (39.0-53.0) % Neutrophils # (1.3-7.7) k/uL Monocytes # (0-1.0) k/uL ABG pH 7.32 L (7.35-7.45) ABG pCO2 51 H (35-45) mmHg ABG pO2 (83-108) mmHg ABG HCO3 27 H (21-25) mmol/L ABG Total CO2 28 H (19-24) mmol/L Chloride (98-107) mmol/L BUN (9-20) mg/dL Creatinine (0.66-1.25) mg/dL Glucose (74-99) mg/dL POC Glucose (mg/dL) 123 H 122 H (75-99) mg/dL Magnesium (1.6-2.3) mg/dL Alkaline Phosphatase (38-126) U/L Total Protein (6.3-8.2) g/dL Albumin (3.5-5.0) g/dL 02/03/18 02/03/18 02/03/18 Range/Units 04:35 04:35 04:59 WBC 28.2 H (3.8-10.6) k/uL RBC 3.51 L (4.30-5.90) m/uL Hgb 10.8 L (13.0-17.5) gm/dL Hct 33.5 L (39.0-53.0) % Neutrophils # 24.0 H (1.3-7.7) k/uL Monocytes # 2.2 H (0-1.0) k/uL ABG pH (7.35-7.45) ABG pCO2 (35-45) mmHg ABG pO2 (83-108) mmHg ABG HCO3 (21-25) mmol/L ABG Total CO2 (19-24) mmol/L Chloride 108 H (98-107) mmol/L BUN 31 H (9-20) mg/dL Creatinine 1.58 H (0.66-1.25) mg/dL Glucose 115 H (74-99) mg/dL POC Glucose (mg/dL) 129 H (75-99) mg/dL Magnesium 2.7 H (1.6-2.3) mg/dL Alkaline Phosphatase 37 L (38-126) U/L Total Protein 5.1 L (6.3-8.2) g/dL Albumin 3.0 L (3.5-5.0) g/dL 02/03/18 02/03/18 02/03/18 Range/Units 06:05 06:55 08:24 WBC (3.8-10.6) k/uL RBC (4.30-5.90) m/uL Hgb (13.0-17.5) gm/dL Hct (39.0-53.0) % Neutrophils # (1.3-7.7) k/uL Monocytes # (0-1.0) k/uL ABG pH (7.35-7.45) ABG pCO2 (35-45) mmHg ABG pO2 (83-108) mmHg ABG HCO3 (21-25) mmol/L ABG Total CO2 (19-24) mmol/L Chloride (98-107) mmol/L BUN (9-20) mg/dL Creatinine (0.66-1.25) mg/dL Glucose (74-99) mg/dL POC Glucose (mg/dL) 124 H 115 H 132 H (75-99) mg/dL Magnesium (1.6-2.3) mg/dL Alkaline Phosphatase (38-126) U/L Total Protein (6.3-8.2) g/dL Albumin (3.5-5.0) g/dL 02/03/18 02/03/18 02/03/18 Range/Units 10:09 12:02 12:56 WBC (3.8-10.6) k/uL RBC (4.30-5.90) m/uL Hgb (13.0-17.5) gm/dL Hct (39.0-53.0) % Neutrophils # (1.3-7.7) k/uL Monocytes # (0-1.0) k/uL ABG pH (7.35-7.45) ABG pCO2 (35-45) mmHg ABG pO2 (83-108) mmHg ABG HCO3 (21-25) mmol/L ABG Total CO2 (19-24) mmol/L Chloride (98-107) mmol/L BUN (9-20) mg/dL Creatinine (0.66-1.25) mg/dL Glucose (74-99) mg/dL POC Glucose (mg/dL) 124 H 112 H 140 H (75-99) mg/dL Magnesium (1.6-2.3) mg/dL Alkaline Phosphatase (38-126) U/L Total Protein (6.3-8.2) g/dL Albumin (3.5-5.0) g/dL Microbiology - Last 24 Hours (Table) 02/03/18 01:25 Sputum Culture - Preliminary Sputum Assessment and Plan Assessment: Status post two-vessel coronary artery bypass grafting - postop day 3 Acute hypoxic respiratory- suspected ARDS Acute coronary syndrome/non-ST elevated LA Current smoker with a 26 pack years Hypertensive Obesity Generalized anxiety DVT prophylaxis Plan: This is a pleasant 42 years old male who presents because of LA. Cardiology and Cardiothoracic surgery following the patient. Patient had CABG done on 2017. Postop patient has been placed on mechanical ventilation and he developed hypoxia. ABG done showing the same. So this is a picture of ALD/ARDS. Pulmonary on board following the patient closely and making changes in his ventilator settings. Monitor lytes and vitals. DVT and GI prophylaxis. Further recommendations depending on the progress of the patient. Prognosis guarded. Time with Patient: Greater than 30
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
[2018-02-04] MEDS: HYDROmorphone 1 MG/ML 1 ML SYRINGE IVP PRN ×7 (00:14→23:08)
[2018-02-04 00:39] LABS: Glucose,Whole Blood 149 mg/dL (75-99)
[2018-02-04] MEDS: INSULIN REGULAR 100 UNIT in SODIUM CHLORIDE 0.9% 100 ML IV SCH ×3 (00:42→20:45)
[2018-02-04] MEDS: PROPOFOL 1,000 MG in EMPTY BAG 1 BAG IV SCH ×9 (01:13→23:09)
[2018-02-04 02:13] LABS: Glucose,Whole Blood 131 mg/dL (75-99)
[2018-02-04] MEDS: HEPARIN SODIUM,PORCINE 5,000 UNIT/ML 1 ML VIAL SQ SCH ×3 (02:17→17:18)
[2018-02-04] MEDS: methylPREDNISolone SOD SUCCI 125 MG/2 ML VIAL IV SCH ×2 (02:17→06:13)
[2018-02-04] MEDS: ARTIFICIAL TEARS-HYPROMELLOSE DROPS 15 ML BTL BOTH EYES SCH ×6 (02:18→20:48)
[2018-02-04] MEDS: IPRATROPIUM-ALBUTEROL 3 ML NEB INHALATION SCH ×6 (03:53→23:38)
[2018-02-04 04:34] LABS: Glucose,Whole Blood 126 mg/dL (75-99)
[2018-02-04 04:41] LABS: Basophils # (A) 0.1 k/uL (0-0.2); Basophils % (A) 0 %; Eosinophils # (A) 0.1 k/uL (0-0.7); Eosinophils % (A) 0 %; HCT 31.4 % (39.0-53.0); HGB 10.5 gm/dL (13.0-17.5); Lymphocytes % (A) 8 %; MCH 31.7 pg (25.0-35.0); MCHC 33.4 g/dL (31.0-37.0); MCV 94.9 fL (80.0-100.0); Mean Platelet Volume 7.2; Monocytes # (A) 1.4 k/uL (0-1.0); Monocytes % (A) 6 %; Neutrophils # (A) 21.8 k/uL (1.3-7.7); Neutrophils % (A) 85 %; Platelet Count 318 k/uL (150-450); RDW 13.6 % (11.5-15.5); WBC 25.6 k/uL (3.8-10.6)
[2018-02-04 04:50] LABS: Magnesium 2.9 mg/dL (1.6-2.3); Potassium 4.7 mmol/L (3.5-5.1)
[2018-02-04 05:10] LABS: ABG Base Excess 3.1 mmol/L; ABG HCO3 28 mmol/L (21-25); ABG Oxygen Saturation 96.8 % (94-97); ABG PCO2 42 mmHg (35-45); ABG PH 7.42 (7.35-7.45); ABG PO2 83 mmHg (83-108); ABG TCO2 29 mmol/L (19-24)
[2018-02-04 06:34] LABS: Glucose,Whole Blood 169 mg/dL (75-99)
[2018-02-04 07:06] LABS: Glucose,Whole Blood 152 mg/dL (75-99)
[2018-02-04] MEDS: CISATRACURIUM 200 MG in SODIUM CHLORIDE 0.9% 180 ML IV SCH (07:16)
--- NOTE | 2018-02-04 07:28 | PN ---
PROGRESS NOTE Mr. Castillo is a 42-year-old male who presented with [id number] elevation myocardial infarction, underwent coronary artery bypass grafting with NAJERA to LAD and a radial to the right coronary artery of the NAJERA. Postoperatively, he had difficulty oxygenating, and he continues to be intubated with a high PEEP with a picture of ARDS. Hemodynamically, he is stable. His blood pressure and heart rate are stable. His urine output is stable. He has no evidence of ventricular ectopic activity or atrial fibrillation. He remains sedated. His FiO2 is down to 50, but he continues to be on a PEEP of 18. His medications at this time include amlodipine 5 mg daily, Lipitor 40 mg daily, Plavix 75 mg daily, metoprolol tartrate 50 mg twice a day. PHYSICAL EXAMINATION: Blood pressure 126/60 with the heart rate in the 80s. LUNGS: Clear anteriorly. HEART: Regular rate and rhythm. S1, S2. No S3. No rub appreciated. ABDOMEN: Soft. Positive bowel sounds. No organomegaly. EXTREMITIES: No edema. LAB DATA: Lab data revealed white blood cell of 25.6, hemoglobin 10.5, platelets count 318. BUN and creatinine 39 and 1.17. IMPRESSION: 1. Status post coronary artery bypass grafting with bypass to the LAD and to right coronary artery. 2. Respiratory failure with ARDS picture. 3. Prior history of smoking. 4. Hyperlipidemia. RECOMMENDATION: From the cardiac standpoint, we will continue supportive care. Continue to decrease his oxygen demand and PEEP as tolerated. MMODL / IJN: [id number] /
[2018-02-04] MEDS: BUDESONIDE 1 MG/2 ML NEBU INHALATION SCH ×2 (07:29→19:05)
[2018-02-04] MEDS: FORMOTEROL FUMARATE 20 MCG/2 ML NEBU INHALATION SCH ×2 (07:29→19:05)
--- NOTE | 2018-02-04 07:52 | XR ---
EXAMINATION TYPE: XR chest 1V portable DATE OF EXAM: 02/04/2018 HISTORY: Post Op CABG COMPARISON: 02/03/2018 TECHNIQUE: Single view of the chest is submitted. FINDINGS: Endotracheal tube, right IJ sheath, NG tube and chest tubes are appropriately placed. Post operative changes of CABG. No sizeable pneumothorax. Scattered Pleural-parencymal opacities may reflect atelectasis. The heart is not enlarged. IMPRESSION: 1. Post operative changes of CABG.
[2018-02-04 08:15] LABS: Glucose,Whole Blood 147 mg/dL (75-99)
[2018-02-04] MEDS: LACTATED RINGERS 1,000 ML IV SCH (08:24)
--- NOTE | 2018-02-04 09:09 | P.PN ---
Subjective Progress Note Date: 02/04/18 Principal diagnosis: Status post off-pump 2 vessel bypass grafting Progress note dated 02/02/2018 42-year-old male postop day #2, status post off-pump two-vessel bypass grafting. Unfortunately, the patient has profound postoperative hypoxemic respiratory failure and likely has acute respiratory distress syndrome, although the etiology of ARDS is unclear given the fact that the patient wasn't off-pump bypass. He also has a history of recent acute non-ST segment elevation myocardial infarction, hypertension, chronic tobacco dependence and underlying COPD, obesity, and generalized anxiety disorder. Currently, the patient remains on the volume assist control mode. His current settings include a rate of 34, tidal volume 400, FiO2 on percent, and PEEP of 18. His arterial blood gases show a PaO2 of 60 to a PaCO2 of 48 and a pH of 7.32. Prior blood gases on volume assist control mode of 32 tidal volume 420 FiO2 100 % PEEP of 16 show a PaO2 of 80 to a PaCO2 of 61 and a pH of 7.16. The patient was admitted to the hospital on January 29 and had surgery on January 31. Currently, the patient's on Primacor at 0.1 mics per kilogram per minute, Cardizem drip at 10 mg an hour, Cleveprex which is currently on hold, fentanyl at 50 mcg/h, Nimbex at 1 britt per kilogram per minute, insulin drip at 10.5 units an hour and propofol 65 mcg/kg/m. The patient's chest x-ray shows typical post op changes with some left lower lobe atelectasis and infiltrate. Also, the endotracheal tube should be pushed down 1.5 cm. Also, a feeding tube was placed by thoracic surgery. Progress note dated 02/03/2018 42-year-old male, postop day #3, status post off-pump two-vessel bypass grafting. He developed profound postoperative hypoxemic respiratory failure with presumed acute respiratory distress syndrome. The etiology of the acute respiratory distress syndrome is not clear. He also has a recent history of acute non-ST segment elevation myocardial infarction, hypertension, chronic tobacco dependence, and underlying COPD. In addition, he has obesity and generalized anxiety disorder. He currently remains on the ventilator. He is on the volume assist control mode rate of 34, tidal volume 400, FiO2 70% to be dropped to 60%, and a PEEP of 8. Blood gases show a PaO2 of 87 a PaCO2 51 and a pH is 7.3. This is consistent with a very mild respiratory acidosis. Currently, his chest x-ray looks pretty good. He is receiving vital high protein at 20 with a goal of 20. In addition, he is on Nimbex at 1 britt per kilogram per minute, to be placed on hold, lactated Ringer's at 50 mL an hour, propofol at 50 mics per kilogram per minute, fentanyl 50 mcg/h, and insulin at 9.5 units per hour. Yesterday, the patient's FiO2 was 100%. He has made progress overnight. Microbiology is negative currently. Yesterday, thoracic surgery placed a feeding tube. Progress note dated 02/04/2018 42-year-old male, postop day #4, status post TWO-VESSEL BYPASS GRAFTING. UNFORTUNATELY, THE PATIENT DEVELOPED PROFOUND HYPOXEMIC RESPIRATORY FAILURE POST SURGICALLY. HE'S LIKELY DEVELOPED ACUTE RESPIRATORY DISTRESS SYNDROME ALTHOUGH THE ETIOLOGY OF THE ACUTE RESPIRATORY DISTRESS SYNDROME IN THIS PATIENT IS NOT CLEAR. THERE IS NO OBVIOUS INFECTION AND HE WAS NOT ON CARDIO PULMONARY BYPASS. THE PATIENT WAS ADMITTED WITH A DIAGNOSIS OF ACUTE NON-ST SEGMENT ELEVATION MYOCARDIAL INFARCTION, BENIGN ESSENTIAL HYPERTENSION, CHRONIC TOBACCO DEPENDENCE, AND COPD. HE ALSO SUFFERS FROM GENERALIZED ANXIETY DISORDER. CURRENTLY, HE REMAINS ON THE VOLUME ASSIST CONTROL MODE WITH A RATE OF 34, TIDAL VOLUME IS 400, FIO2 50%, AND PEEP OF 15. On THOSE SAME SETTINGS WITH A PEEP OF 18, HIS PO2 WAS 83, PACO2 WAS 42 AND HIS PH WAS 7.42. The PATIENT IS CURRENTLY ON PROPOFOL AT 70 MICS PER KILOGRAM PER MINUTE, LACTATED RINGER'S AT 20 ML AN HOUR, INSULIN DRIP AT 12 UNITS AN HOUR AND VITAL HIGH PROTEIN AT 31 WITH A GOAL OF 31 ML AN HOUR. WE ARE GOING TO REPEAT A BLOOD GAS AT 10 AM. THE PATIENT CHANGES MADE ABOUT 7 AM. IF EVERYTHING LOOKS GOOD, WE' LL MAKE ANOTHER PEEP CHANGE. HIS CHEST X-RAY IS ALMOST LOOKED PRETTY GOOD AND IT LOOKS CLEAN AGAIN TODAY. Objective - Vital Signs Vital signs: Vital Signs Temp 36.7 F L 02/04/18 04:00 Pulse 87 02/04/18 08:00 Resp 34 H 02/04/18 07:00 BP 100/59 02/03/18 02:00 Pulse Ox 96 02/04/18 07:00 Intake & Output 02/03/18 02/04/18 02/04/18 18:59 06:59 18:59 Intake Total 2116.824 1267.941 138.743 Output Total 1005 880 80 Balance 1111.824 387.941 58.743 Weight 101.9 kg 102.8 kg Intake: IV 769 616 56 Cardiac Output 20 Lactated Ringers 1,000 ml 650 550 50 @ 50 mls/hr IV .Q20H [facility] Rx#:[id number] Pressure Bag 99 66 6 Intake, IV Titration 844.824 620.941 82.743 Amount Cisatracurium 200 mg In 62.013 Sodium Chloride 0.9% 180 ml @ 1 MCG/KG/MIN 6.05 mls/hr IV .Q24H [facility] Rx#: [id number] Insulin Regular 100 unit 103.156 130.526 In Sodium Chloride 0.9% 100 ml @ Per Protocol IV .Q0M [facility] Rx#:[id number] Propofol 1,000 mg In 380.588 490.415 82.743 Empty Bag 1 bag @ Titrate IV .Q0M [facility] Rx#: [id number] cefTRIAXone 2,000 mg In 100 Sodium Chloride 0.9% 100 ml @ 100 mls/hr IVPB Q24HR [facility] Rx#:[id number] fentaNYL (PF) 2,500 mcg 199.067 In Sodium Chloride 0.9% 200 ml @ 50 MCG/HR 5 mls/ hr IV .Q24H [facility] Rx#: [id number] Tube Feeding 353 31 Other 150 Output: Chest Tube Drainage 50 30 left pleural 50 30 Drainage 15 50 left forearm 15 50 Urine 940 800 80 Other: Voiding Method Indwelling Catheter Indwelling Catheter Indwelling Catheter ABP, PAP, CO, CI - Last Documented Arterial Blood Pressure 128/69 Pulmonary Artery Pressure 36/26 Cardiac Output 6.4 Cardiac Index 2.9 - Exam No acute distress, sedated but not paralyzed, with an orally placed endotracheal tube and a Dobbhoff tube. HEENT examination is grossly unremarkable. Mucous membranes are moist. No oral lesions noted. Neck supple. Full range of motion. No adenopathy thyromegaly or neck vein distention. Cardiovascular examination reveals regular rhythm rate. S1-S2 normal. No S3 or S4. No discernible murmur noted. Heart sounds are distant. Lungs reveal mostly clear breath sounds. Breath sounds are equal bilaterally. Rhonchi are bit more prominent today than yesterday. A few crackles are appreciated. No wheezes are noted. Breath sounds today are bit improved compared to yesterday's exam. Abdomen soft and bowel sounds are not heard. No masses or tenderness. Extremities are intact. No cyanosis clubbing or edema. Skin is without rash or lesion. Neurologic examination is cannot be adequately assessed because of sedation. - Labs CBC & Chem 7: 02/04/18 04:30 02/04/18 04:50 Labs: Abnormal Lab Results - Last 24 Hours (Table) 02/03/18 02/03/18 02/03/18 Range/Units 10:09 12:02 12:56 WBC (3.8-10.6) k/uL RBC (4.30-5.90) m/uL Hgb (13.0-17.5) gm/dL Hct (39.0-53.0) % Neutrophils # (1.3-7.7) k/uL Monocytes # (0-1.0) k/uL ABG HCO3 (21-25) mmol/L ABG Total CO2 (19-24) mmol/L Chloride (98-107) mmol/L BUN (9-20) mg/dL Glucose (74-99) mg/dL POC Glucose (mg/dL) 124 H 112 H 140 H (75-99) mg/dL Magnesium (1.6-2.3) mg/dL 02/03/18 02/03/18 02/03/18 Range/Units 14:08 16:09 18:03 WBC (3.8-10.6) k/uL RBC (4.30-5.90) m/uL Hgb (13.0-17.5) gm/dL Hct (39.0-53.0) % Neutrophils # (1.3-7.7) k/uL Monocytes # (0-1.0) k/uL ABG HCO3 (21-25) mmol/L ABG Total CO2 (19-24) mmol/L Chloride (98-107) mmol/L BUN (9-20) mg/dL Glucose (74-99) mg/dL POC Glucose (mg/dL) 138 H 125 H 122 H (75-99) mg/dL Magnesium (1.6-2.3) mg/dL 02/03/18 02/03/18 02/04/18 Range/Units 19:58 22:00 00:27 WBC (3.8-10.6) k/uL RBC (4.30-5.90) m/uL Hgb (13.0-17.5) gm/dL Hct (39.0-53.0) % Neutrophils # (1.3-7.7) k/uL Monocytes # (0-1.0) k/uL ABG HCO3 (21-25) mmol/L ABG Total CO2 (19-24) mmol/L Chloride (98-107) mmol/L BUN (9-20) mg/dL Glucose (74-99) mg/dL POC Glucose (mg/dL) 140 H 143 H 149 H (75-99) mg/dL Magnesium (1.6-2.3) mg/dL 02/04/18 02/04/18 02/04/18 Range/Units 02:02 04:22 04:30 WBC 25.6 H (3.8-10.6) k/uL RBC 3.30 L (4.30-5.90) m/uL Hgb 10.5 L (13.0-17.5) gm/dL Hct 31.4 L (39.0-53.0) % Neutrophils # 21.8 H (1.3-7.7) k/uL Monocytes # 1.4 H (0-1.0) k/uL ABG HCO3 (21-25) mmol/L ABG Total CO2 (19-24) mmol/L Chloride (98-107) mmol/L BUN (9-20) mg/dL Glucose (74-99) mg/dL POC Glucose (mg/dL) 131 H 126 H (75-99) mg/dL Magnesium (1.6-2.3) mg/dL 02/04/18 02/04/18 02/04/18 Range/Units 04:50 05:06 06:23 WBC (3.8-10.6) k/uL RBC (4.30-5.90) m/uL Hgb (13.0-17.5) gm/dL Hct (39.0-53.0) % Neutrophils # (1.3-7.7) k/uL Monocytes # (0-1.0) k/uL ABG HCO3 28 H (21-25) mmol/L ABG Total CO2 29 H (19-24) mmol/L Chloride 108 H (98-107) mmol/L BUN 39 H (9-20) mg/dL Glucose 128 H (74-99) mg/dL POC Glucose (mg/dL) 169 H (75-99) mg/dL Magnesium 2.9 H (1.6-2.3) mg/dL 02/04/18 02/04/18 Range/Units 06:54 08:04 WBC (3.8-10.6) k/uL RBC (4.30-5.90) m/uL Hgb (13.0-17.5) gm/dL Hct (39.0-53.0) % Neutrophils # (1.3-7.7) k/uL Monocytes # (0-1.0) k/uL ABG HCO3 (21-25) mmol/L ABG Total CO2 (19-24) mmol/L Chloride (98-107) mmol/L BUN (9-20) mg/dL Glucose (74-99) mg/dL POC Glucose (mg/dL) 152 H 147 H (75-99) mg/dL Magnesium (1.6-2.3) mg/dL Microbiology - Last 24 Hours (Table) 02/03/18 01:25 Gram Stain - Preliminary Sputum Sputum Culture - Preliminary Assessment and Plan Assessment: Assessment Postop day #4, status post off-pump 2 vessel bypass grafting Postoperative mechanical ventilatory support Postoperative hypoxemic respiratory failure, likely secondary to acute respiratory distress syndrome (ARDS). Recent acute non-ST segment elevation myocardial infarction History of hypertension Chronic tobacco dependence and underlying COPD Obesity History of generalized anxiety disorder Plan: Plan dated 02/02/2018 Current blood gases are adequate. There will be no PEEP changes at this time. The first thing to be reduced to be the FiO2. The patient is not ready for weaning obviously given his unstable respiratory and cardiovascular status. Tube feeds should be started as soon as possible. A Dobbhoff feeding tube was placed by thoracic surgery. The patient should not receive any bicarbonate at this time. Urine culture showed evidence of Klebsiella pneumoniae. We'll check to make sure the patient's on adequate antibiotics. The rest of his medications were reviewed. Medications are currently reviewed. White count is 34, hemoglobin 13.5, hematocrit 40.4, and platelet count 267,000. Sodium 141 potassium 4.3 chloride is 106 CO2 is 20. BUN and creatinine are 15 and 1.21. Anion gap is 15. Overall prognosis remains guarded. The patient will likely require long-term mechanical ventilatory support. Again, the goal would be a low tidal volume high PEEP strategy. Additional recommendations and suggestions are forthcoming. Medications labs are reviewed. Critical care time 37 minutes Plan dated 02/03/2018 Today we will hold the patient's paralytic. We'll see if we can manage him without it. We'll continue to drop the FiO2. It was a drop down to 60%. Hopefully, later today or tomorrow drop down to 50% at which time we can begin to start to make PEEP changes. Currently he is on a PEEP of 18. He is receiving nourishment. A Dobbhoff to was placed by thoracic surgery. His chest x-ray looks relatively stable. White count is 28.2, hemoglobin 10.8, hematocrit 33.5, and platelet count 264,000. Sodium 140, potassium 4.8, chlorides 108, CO2 25, anion gap is normal, BUN 31, and creatinine is 1.58. We will continue with mechanical ventilatory support and best supportive care. Prognosis is guarded. The patient's on appropriate medications which have been reviewed. Microbiologic studies thus far are negative. Critical care time 35 minutes Plan dated 02/04/2018 The patient's currently off the fentanyl drip and the paralytic. The patient remains on propofol 70 mics per kilogram per minute. The lactated Ringer's will be decreased to 20 mL an hour. The patient remains on an insulin drip at 12 units an hour. He is being nourished. A repeat arterial blood gas will be done at 10 AM. If it looks good, I will likely make another PEEP change. Urine was positive for Klebsiella and is on appropriate antibiotic. White count is 25.6, hemoglobin 10.5, hematocrit 31.4 and platelet count 318,000. Sodium and potassium are normal. Chlorides 108, CO2 27, anion gap is normal, and BUN is 39 with a creatinine of 1.17. The patient's overall prognosis remains guarded. We'll continue to follow him very closely. His respiratory status is certainly a concern. Hopefully blood gases at 10 would be excellent and we'll be able to make another PEEP change. Critical care time 36 minutes Time with Patient: Greater than 30
[2018-02-04] MEDS ORDERED: LIDOCAINE 1% INJ 10MG/ML (20 ML MDV) SQ ONE (09:36)
[2018-02-04] MEDS ORDERED: methylPREDNISolone SOD SUCCI 40 MG/ML 1 ML VIAL IV STA (09:43)
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
[2018-02-04] MEDS: CHLORHEXIDINE GLUCONATE 15 ML CUP MUCOUS MEM SCH ×2 (10:07→20:48)
[2018-02-04] MEDS: cefTRIAXone 2,000 MG in SODIUM CHLORIDE 0.9% 100 ML IVPB SCH (10:07)
[2018-02-04] MEDS: CLOPIDOGREL 75 MG TAB PO SCH (10:07)
[2018-02-04] MEDS: ATORVASTATIN 40 MG TAB PO SCH (10:07)
[2018-02-04] MEDS: METOPROLOL TARTRATE 50 MG TAB PO SCH ×2 (10:08→20:49)
[2018-02-04] MEDS: ASPIRIN 325 MG TAB PO SCH (10:08)
--- NOTE | 2018-02-04 10:08 | XR ---
EXAMINATION TYPE: XR chest 1V confirm line [facility] DATE OF EXAM: 02/04/2018 COMPARISON: 02/04/2018 HISTORY: Chest pain TECHNIQUE: Single frontal view of the chest is obtained. FINDINGS: Left-sided PICC line with distal tip overlying the SVC. Endotracheal tube, Dobbhoff catheter and righ t IJ sheath in place. No evidence for pneumothorax. Pulmonary venous congestion persists. Cardiomediastinal structures are stable. IMPRESSION: 1. Left-sided PICC line as noted.
[2018-02-04] MEDS: PANTOPRAZOLE 40 MG/10 ML VIAL IVP SCH (10:12)
[2018-02-04 10:15] LABS: ABG Base Excess 4.2 mmol/L; ABG HCO3 28 mmol/L (21-25); ABG Oxygen Saturation 97.7 % (94-97); ABG PCO2 43 mmHg (35-45); ABG PH 7.43 (7.35-7.45); ABG PO2 92 mmHg (83-108); ABG TCO2 30 mmol/L (19-24)
[2018-02-04 10:29] LABS: Glucose,Whole Blood 125 mg/dL (75-99)
--- NOTE | 2018-02-04 11:59 | IR ---
PICC LINE PLACEMENT: HISTORY: Infection requiring long-term antibiotic therapy PROCEDURE: Ultrasound guidance of PICC line placement. [employer] SCI[employer] PROFESSOR: Dr. Bryan. COMPLICATIONS: None ANESTHESIA: 1. 1% Lidocaine locally. FINDINGS/TECHNIQUE: The procedure was explained to the patient. The risks, complications, benefits and alternatives were discussed and any questions were answered. Informed consent was obtained. The patient was placed supine on the fluoroscopic table and prepped and draped in the usual sterile fas ion. Utilizing a 21 gauge needle and sonographic guidance, access in the left basilic vein was achi eved and there is placement of a 0.018 guidewire. The vein is patent. A 5-F. Sheath was placed over the guidewire. The guidewire and dilator were removed and a 5-F. Double lumen PICC line was placed through the sheath with the chest x-ray confirming the tip at the level of the SVC. The sheath was r emoved, the catheter was flushed and sutured into position. The patient was stable throughout the pr ocedure and remained stable upon discharge from the Department of Radiology. The vein puncture was patent under ultrasound. A ruiz scale image was obtained to document patency of the vein punctured. All elements of the maximal barrier technique were utilized. IMPRESSION: 1. Successful PICC line placement under ultrasound performed bedside within the ICU.
[2018-02-04 12:31] LABS: Glucose,Whole Blood 119 mg/dL (75-99)
[2018-02-04] MEDS: KETOROLAC 30 MG/ML 1 ML VIAL IVP SCH ×2 (13:27→17:17)
[2018-02-04] MEDS: amLODIPine 5 MG TAB PO SCH (13:28)
--- NOTE | 2018-02-04 13:59 | P.PN ---
Subjective Progress Note Date: 02/04/18 Principal diagnosis: leukocytosis Pt intubated and sedated. Objective - Vital Signs Vital signs: Vital Signs Temp 98.2 F 02/04/18 12:00 Pulse 76 02/04/18 13:00 Resp 34 H 02/04/18 13:00 BP 100/59 02/03/18 02:00 Pulse Ox 93 L 02/04/18 13:00 Intake & Output 02/03/18 02/04/18 02/04/18 18:59 06:59 18:59 Intake Total 2116.824 1267.941 876.327 Output Total 1005 880 735 Balance 1111.824 387.941 141.327 Weight 101.9 kg 102.8 kg Intake: IV 769 616 236 Cardiac Output 20 Lactated Ringers 1,000 ml 650 550 200 @ 50 mls/hr IV .Q20H [facility] Rx#:[id number] Pressure Bag 99 66 36 Intake, IV Titration 844.824 620.941 334.327 Amount Cisatracurium 200 mg In 62.013 Sodium Chloride 0.9% 180 ml @ 1 MCG/KG/MIN 6.05 mls/hr IV .Q24H [facility] Rx#: [id number] Insulin Regular 100 unit 103.156 130.526 51.584 In Sodium Chloride 0.9% 100 ml @ Per Protocol IV .Q0M [facility] Rx#:[id number] Propofol 1,000 mg In 380.588 490.415 182.743 Empty Bag 1 bag @ Titrate IV .Q0M [facility] Rx#: [id number] cefTRIAXone 2,000 mg In 100 100 Sodium Chloride 0.9% 100 ml @ 100 mls/hr IVPB Q24HR [facility] Rx#:[id number] fentaNYL (PF) 2,500 mcg 199.067 In Sodium Chloride 0.9% 200 ml @ 50 MCG/HR 5 mls/ hr IV .Q24H [facility] Rx#: [id number] Tube Feeding 353 31 186 Other 150 120 Output: Chest Tube Drainage 50 30 30 left pleural 50 30 30 Drainage 15 50 left forearm 15 50 Urine 940 800 705 Other: Voiding Method Indwelling Catheter Indwelling Catheter Indwelling Catheter ABP, PAP, CO, CI - Last Documented Arterial Blood Pressure 108/67 Pulmonary Artery Pressure 36/26 Cardiac Output 6.4 Cardiac Index 2.9 - Exam WDWN, sedated, no evidence of pain or distress. - Labs CBC & Chem 7: 02/04/18 04:30 02/04/18 04:50 Labs: Abnormal Lab Results - Last 24 Hours (Table) 02/03/18 02/03/18 02/03/18 Range/Units 14:08 16:09 18:03 WBC (3.8-10.6) k/uL RBC (4.30-5.90) m/uL Hgb (13.0-17.5) gm/dL Hct (39.0-53.0) % Neutrophils # (1.3-7.7) k/uL Monocytes # (0-1.0) k/uL ABG HCO3 (21-25) mmol/L ABG Total CO2 (19-24) mmol/L ABG O2 Saturation (94-97) % Chloride (98-107) mmol/L BUN (9-20) mg/dL Glucose (74-99) mg/dL POC Glucose (mg/dL) 138 H 125 H 122 H (75-99) mg/dL Magnesium (1.6-2.3) mg/dL 02/03/18 02/03/18 02/04/18 Range/Units 19:58 22:00 00:27 WBC (3.8-10.6) k/uL RBC (4.30-5.90) m/uL Hgb (13.0-17.5) gm/dL Hct (39.0-53.0) % Neutrophils # (1.3-7.7) k/uL Monocytes # (0-1.0) k/uL ABG HCO3 (21-25) mmol/L ABG Total CO2 (19-24) mmol/L ABG O2 Saturation (94-97) % Chloride (98-107) mmol/L BUN (9-20) mg/dL Glucose (74-99) mg/dL POC Glucose (mg/dL) 140 H 143 H 149 H (75-99) mg/dL Magnesium (1.6-2.3) mg/dL 02/04/18 02/04/18 02/04/18 Range/Units 02:02 04:22 04:30 WBC 25.6 H (3.8-10.6) k/uL RBC 3.30 L (4.30-5.90) m/uL Hgb 10.5 L (13.0-17.5) gm/dL Hct 31.4 L (39.0-53.0) % Neutrophils # 21.8 H (1.3-7.7) k/uL Monocytes # 1.4 H (0-1.0) k/uL ABG HCO3 (21-25) mmol/L ABG Total CO2 (19-24) mmol/L ABG O2 Saturation (94-97) % Chloride (98-107) mmol/L BUN (9-20) mg/dL Glucose (74-99) mg/dL POC Glucose (mg/dL) 131 H 126 H (75-99) mg/dL Magnesium (1.6-2.3) mg/dL 02/04/18 02/04/18 02/04/18 Range/Units 04:50 05:06 06:23 WBC (3.8-10.6) k/uL RBC (4.30-5.90) m/uL Hgb (13.0-17.5) gm/dL Hct (39.0-53.0) % Neutrophils # (1.3-7.7) k/uL Monocytes # (0-1.0) k/uL ABG HCO3 28 H (21-25) mmol/L ABG Total CO2 29 H (19-24) mmol/L ABG O2 Saturation (94-97) % Chloride 108 H (98-107) mmol/L BUN 39 H (9-20) mg/dL Glucose 128 H (74-99) mg/dL POC Glucose (mg/dL) 169 H (75-99) mg/dL Magnesium 2.9 H (1.6-2.3) mg/dL 02/04/18 02/04/18 02/04/18 Range/Units 06:54 08:04 10:09 WBC (3.8-10.6) k/uL RBC (4.30-5.90) m/uL Hgb (13.0-17.5) gm/dL Hct (39.0-53.0) % Neutrophils # (1.3-7.7) k/uL Monocytes # (0-1.0) k/uL ABG HCO3 28 H (21-25) mmol/L ABG Total CO2 30 H (19-24) mmol/L ABG O2 Saturation 97.7 H (94-97) % Chloride (98-107) mmol/L BUN (9-20) mg/dL Glucose (74-99) mg/dL POC Glucose (mg/dL) 152 H 147 H (75-99) mg/dL Magnesium (1.6-2.3) mg/dL 02/04/18 02/04/18 Range/Units 10:12 12:09 WBC (3.8-10.6) k/uL RBC (4.30-5.90) m/uL Hgb (13.0-17.5) gm/dL Hct (39.0-53.0) % Neutrophils # (1.3-7.7) k/uL Monocytes # (0-1.0) k/uL ABG HCO3 (21-25) mmol/L ABG Total CO2 (19-24) mmol/L ABG O2 Saturation (94-97) % Chloride (98-107) mmol/L BUN (9-20) mg/dL Glucose (74-99) mg/dL POC Glucose (mg/dL) 125 H 119 H (75-99) mg/dL Magnesium (1.6-2.3) mg/dL Microbiology - Last 24 Hours (Table) 02/03/18 01:25 Gram Stain - Preliminary Sputum Sputum Culture - Preliminary Assessment and Plan (1) Leukocytosis Narrative/Plan: Lymphocyte count stable, slowly decresing. Flow cytometry did not reveal an underlying leukemic condition. Cont to monitor CBC and diff. Will cont to follow CBC, anticipate normalization as pt condition improves. Further work up as needed. Current Visit: Yes Status: Chronic Priority: Medium Code(s): D72.829 - ELEVATED WHITE BLOOD CELL COUNT, UNSPECIFIED SNOMED Code(s): 715618293
[2018-02-04 14:23] LABS: Glucose,Whole Blood 121 mg/dL (75-99)
--- NOTE | 2018-02-04 15:08 | P.ARTDOP ---
Arterial Doppler LOWER EXTREMITY ARTERIAL DOPPLER: DATE OF SERVICE: 01/29/2018 Reason for study: Preop CABG. Doppler waveforms: Multiphasic bilaterally throughout. Pulse volume recording: []. Pressure gradients: None. Ankle-brachial indices: Greater than 1 bilaterally. Toe pressures: [] on the right, [] on the left Impression: Normal study.
--- NOTE | 2018-02-04 15:10 | P.VSCSTY ---
Greater Saphenous Vein Mapping This is bilateral lower extremity greater saphenous vein mapping. Date of service 01/29/2018 Vein quality and ultrasound appearance some intimal thickening throughout. Vein size groin right 5.8 x 5.2 groin left 4.8 x 3.1 High thigh right 3.5 x 2.9 high thigh left 3.5 x 2.9 Mid thigh right 2.7 x 2.6 mid thigh left 2.3 x 2.6 Above-knee right 2.8 x 2.0 above- knee left 3.5 x 2.6 Below knee right 2.6 x 2.0 below-knee left 2.4 x 2.4 Mid calf right 2.6 x 2.4 mid calf left 1.7 x 1.7 Ankle right 2.5 x 2.2 ankle left 2.8 x 2.2 Impression usable bilateral greater saphenous vein. Left mid calf may be a bit small for use as conduit..
--- NOTE | 2018-02-04 15:13 | P.ARTDOP ---
Arterial Doppler Left radial artery study: Date of study: 01/29/2018 Reason for study: Preop CABG There was no ulcerations the pressure with radial artery compression. Size of the left radial was between 3.6 x 3.3 mm and 3.0 x 2.4 mm Left radial artery is satisfactory for use as conduit.
[2018-02-04 16:23] LABS: Glucose,Whole Blood 102 mg/dL (75-99)
[2018-02-04] MEDS: methylPREDNISolone SOD SUCCI 40 MG/ML 1 ML VIAL IV SCH (17:18)
[2018-02-04 17:24] LABS: Glucose,Whole Blood 138 mg/dL (75-99)
[2018-02-04 18:26] LABS: Glucose,Whole Blood 134 mg/dL (75-99)
[2018-02-04 20:21] LABS: Glucose,Whole Blood 118 mg/dL (75-99)
[2018-02-04] MEDS: SENNOSIDES-DOCUSATE SODIUM 1 EACH TAB PO SCH (20:49)
[2018-02-04 22:29] LABS: Glucose,Whole Blood 105 mg/dL (75-99)
[2018-02-04 23:15] LABS: Glucose,Whole Blood 120 mg/dL (75-99)
[2018-02-05 00:21] LABS: Glucose,Whole Blood 123 mg/dL (75-99)
[2018-02-05] MEDS: methylPREDNISolone SOD SUCCI 40 MG/ML 1 ML VIAL IV SCH ×3 (01:00→16:53)
[2018-02-05] MEDS: HEPARIN SODIUM,PORCINE 5,000 UNIT/ML 1 ML VIAL SQ SCH ×4 (01:00→23:47)
[2018-02-05] MEDS: KETOROLAC 30 MG/ML 1 ML VIAL IVP SCH ×5 (01:00→23:19)
[2018-02-05] MEDS: ARTIFICIAL TEARS-HYPROMELLOSE DROPS 15 ML BTL BOTH EYES SCH ×6 (01:02→21:39)
[2018-02-05] MEDS: PROPOFOL 1,000 MG in EMPTY BAG 1 BAG IV SCH ×11 (01:31→22:21)
[2018-02-05 02:38] LABS: Glucose,Whole Blood 118 mg/dL (75-99)
[2018-02-05] MEDS: IPRATROPIUM-ALBUTEROL 3 ML NEB INHALATION SCH ×6 (03:39→23:27)
[2018-02-05 04:15] LABS: Glucose,Whole Blood 123 mg/dL (75-99)
[2018-02-05 04:44] LABS: Calcium 9.1 mg/dL (8.4-10.2); Magnesium 3.1 mg/dL (1.6-2.3); Potassium 4.8 mmol/L (3.5-5.1); Total Bilirubin 0.3 mg/dL (0.2-1.3); Total Protein 5.4 g/dL (6.3-8.2)
[2018-02-05 04:46] LABS: Basophils # (A) 0.1 k/uL (0-0.2); Basophils % (A) 0 %; Eosinophils # (A) 0.1 k/uL (0-0.7); Eosinophils % (A) 0 %; HCT 33.4 % (39.0-53.0); HGB 10.9 gm/dL (13.0-17.5); Lymphocytes # (A) 3.4 k/uL (1.0-4.8); Lymphocytes % (A) 12 %; MCH 31.2 pg (25.0-35.0); MCHC 32.6 g/dL (31.0-37.0); MCV 95.6 fL (80.0-100.0); Mean Platelet Volume 7.2; Monocytes # (A) 2.1 k/uL (0-1.0); Monocytes % (A) 8 %; Neutrophils # (A) 21.3 k/uL (1.3-7.7); Neutrophils % (A) 78 %; Platelet Count 362 k/uL (150-450); RBC 3.49 m/uL (4.30-5.90); RDW 13.7 % (11.5-15.5); WBC 27.4 k/uL (3.8-10.6)
[2018-02-05 04:55] LABS: Prothrombin Time 10.1 sec (9.0-12.0)
[2018-02-05 05:40] LABS: Basophilic Stippling Present; Howell-Jolly Bodies Present; Large Platelets Present
[2018-02-05 05:41] LABS: Polychromasia Present; Target Cells Present
[2018-02-05 05:51] LABS: ABG Base Excess 5.1 mmol/L; ABG HCO3 28 mmol/L (21-25); ABG Oxygen Saturation 94.6 % (94-97); ABG PCO2 36 mmHg (35-45); ABG PO2 68 mmHg (83-108); ABG TCO2 29 mmol/L (19-24)
[2018-02-05 06:00] LABS: Glucose,Whole Blood 92 mg/dL (75-99)
--- NOTE | 2018-02-05 06:40 | XR ---
EXAMINATION TYPE: XR chest 1V portable DATE OF EXAM: 02/05/2018 CLINICAL HISTORY: Difficulty breathing and post open cardiac surgery progress study. TECHNIQUE: Single AP portable upright view of the chest is obtained. COMPARISON: Chest x-ray from one day earlier and older studies. FINDINGS: There is stable left-sided PICC line. An endotracheal tube and weighted Dobbhoff feeding c atheter are stable. Left-sided chest tube is stable. Interval removal of right internal jugular cordi s sheath noted. Post CABG changes with mediastinal clips and sternal wires is redemonstrated. Bibasil ar opacity remains present perhaps slightly more prominent in the left lung base versus prior. No siz able pneumothorax is seen. Cardiac silhouette size is stable and mildly enlarged. Osseous structures are intact. IMPRESSION: Interval removal of right internal jugular cordis sheath. Mild cardiomegaly with bibasila r atelectasis and/or infiltrate redemonstrated. Finding worsened left lung base versus most recent pr ior.
[2018-02-05 07:02] LABS: Glucose,Whole Blood 116 mg/dL (75-99)
--- NOTE | 2018-02-05 07:11 | P.PN ---
Subjective Progress Note Date: 02/05/18 Principal diagnosis: Status post off-pump 2 vessel bypass grafting Progress note dated 02/02/2018 42-year-old male postop day #2, status post off-pump two-vessel bypass grafting. Unfortunately, the patient has profound postoperative hypoxemic respiratory failure and likely has acute respiratory distress syndrome, although the etiology of ARDS is unclear given the fact that the patient wasn't off-pump bypass. He also has a history of recent acute non-ST segment elevation myocardial infarction, hypertension, chronic tobacco dependence and underlying COPD, obesity, and generalized anxiety disorder. Currently, the patient remains on the volume assist control mode. His current settings include a rate of 34, tidal volume 400, FiO2 on percent, and PEEP of 18. His arterial blood gases show a PaO2 of 60 to a PaCO2 of 48 and a pH of 7.32. Prior blood gases on volume assist control mode of 32 tidal volume 420 FiO2 100 % PEEP of 16 show a PaO2 of 80 to a PaCO2 of 61 and a pH of 7.16. The patient was admitted to the hospital on January 29 and had surgery on January 31. Currently, the patient's on Primacor at 0.1 mics per kilogram per minute, Cardizem drip at 10 mg an hour, Cleveprex which is currently on hold, fentanyl at 50 mcg/h, Nimbex at 1 britt per kilogram per minute, insulin drip at 10.5 units an hour and propofol 65 mcg/kg/m. The patient's chest x-ray shows typical post op changes with some left lower lobe atelectasis and infiltrate. Also, the endotracheal tube should be pushed down 1.5 cm. Also, a feeding tube was placed by thoracic surgery. Progress note dated 02/03/2018 42-year-old male, postop day #3, status post off-pump two-vessel bypass grafting. He developed profound postoperative hypoxemic respiratory failure with presumed acute respiratory distress syndrome. The etiology of the acute respiratory distress syndrome is not clear. He also has a recent history of acute non-ST segment elevation myocardial infarction, hypertension, chronic tobacco dependence, and underlying COPD. In addition, he has obesity and generalized anxiety disorder. He currently remains on the ventilator. He is on the volume assist control mode rate of 34, tidal volume 400, FiO2 70% to be dropped to 60%, and a PEEP of 8. Blood gases show a PaO2 of 87 a PaCO2 51 and a pH is 7.3. This is consistent with a very mild respiratory acidosis. Currently, his chest x-ray looks pretty good. He is receiving vital high protein at 20 with a goal of 20. In addition, he is on Nimbex at 1 britt per kilogram per minute, to be placed on hold, lactated Ringer's at 50 mL an hour, propofol at 50 mics per kilogram per minute, fentanyl 50 mcg/h, and insulin at 9.5 units per hour. Yesterday, the patient's FiO2 was 100%. He has made progress overnight. Microbiology is negative currently. Yesterday, thoracic surgery placed a feeding tube. Progress note dated 02/04/2018 42-year-old male, postop day #4, status post TWO-VESSEL BYPASS GRAFTING. UNFORTUNATELY, THE PATIENT DEVELOPED PROFOUND HYPOXEMIC RESPIRATORY FAILURE POST SURGICALLY. HE'S LIKELY DEVELOPED ACUTE RESPIRATORY DISTRESS SYNDROME ALTHOUGH THE ETIOLOGY OF THE ACUTE RESPIRATORY DISTRESS SYNDROME IN THIS PATIENT IS NOT CLEAR. THERE IS NO OBVIOUS INFECTION AND HE WAS NOT ON CARDIO PULMONARY BYPASS. THE PATIENT WAS ADMITTED WITH A DIAGNOSIS OF ACUTE NON-ST SEGMENT ELEVATION MYOCARDIAL INFARCTION, BENIGN ESSENTIAL HYPERTENSION, CHRONIC TOBACCO DEPENDENCE, AND COPD. HE ALSO SUFFERS FROM GENERALIZED ANXIETY DISORDER. CURRENTLY, HE REMAINS ON THE VOLUME ASSIST CONTROL MODE WITH A RATE OF 34, TIDAL VOLUME IS 400, FIO2 50%, AND PEEP OF 15. On THOSE SAME SETTINGS WITH A PEEP OF 18, HIS PO2 WAS 83, PACO2 WAS 42 AND HIS PH WAS 7.42. The PATIENT IS CURRENTLY ON PROPOFOL AT 70 MICS PER KILOGRAM PER MINUTE, LACTATED RINGER'S AT 20 ML AN HOUR, INSULIN DRIP AT 12 UNITS AN HOUR AND VITAL HIGH PROTEIN AT 31 WITH A GOAL OF 31 ML AN HOUR. WE ARE GOING TO REPEAT A BLOOD GAS AT 10 AM. THE PATIENT CHANGES MADE ABOUT 7 AM. IF EVERYTHING LOOKS GOOD, WE' LL MAKE ANOTHER PEEP CHANGE. HIS CHEST X-RAY IS ALMOST LOOKED PRETTY GOOD AND IT LOOKS CLEAN AGAIN TODAY. Progress note dated 02/05/2018 42-year-old male, postop day 5, status post two-vessel bypass grafting. The patient unfortunately developed profound hypoxemic respiratory failure in the postoperative phase. He likely developed acute respiratory distress syndrome although the etiology of this is unclear. The patient initially was on 100% and 18 of PEEP. Remember to wean him down now. Currently, his vent settings include the volume assist control mode, rate 34, tidal volume 400, FiO2 50% and PEEP of 10. On those settings, his blood gases show a PaO2 of 68, PaCO2 36 and a pH 7.50. The blood gases are consistent with a combined respiratory and mild metabolic alkalosis. The patient's fluids included lactated Ringer's at 20 mL an hour, propofol 70 mics per kilogram per minute and vital high protein at 31 with a goal of 31 mL an hour. The patient does have Klebsiella in his urine and that's being covered. His chest x-ray show some postoperative changes, a small left pleural effusion and basilar atelectasis. Overall, his condition has improved. Today, we will hold his sedation and do a spontaneous breathing trial on PSV 10 CPAP of 5. He may or may not be ready for extubation. In addition to the above, he has a history of acute non-ST segment elevation myocardial infarction, hypertension, chronic tobacco dependence and underlying COPD. Objective - Vital Signs Vital signs: Vital Signs Temp 36.8 F L 02/05/18 04:00 Pulse 72 02/05/18 07:00 Resp 34 H 02/05/18 07:00 BP 100/59 02/03/18 02:00 Pulse Ox 93 L 02/05/18 07:00 Intake & Output 02/04/18 02/05/18 02/05/18 18:59 06:59 18:59 Intake Total 1658.805 9553.606 Output Total 1148 1145 Balance 205.535 182.606 Weight 106.3 kg Intake: IV 351 299 Lactated Ringers 1,000 ml 300 260 @ 50 mls/hr IV .Q20H [facility]ICH[facility] Rx#:[id number] Pressure Bag 51 39 Intake, IV Titration 572.535 596.606 Amount Insulin Regular 100 unit 103.559 106.557 In Sodium Chloride 0.9% 100 ml @ Per Protocol IV .Q0M [facility]ICH[facility] Rx#:[id number] Propofol 1,000 mg In 368.976 490.049 Empty Bag 1 bag @ Titrate IV .Q0M [facility]ICH[facility] Rx#: [id number] cefTRIAXone 2,000 mg In 100 Sodium Chloride 0.9% 100 ml @ 100 mls/hr IVPB Q24HR NICH[facility] Rx#:[id number] Tube Feeding 310 372 Other 120 60 Output: Chest Tube Drainage 80 10 left pleural 80 10 Drainage 8 5 left forearm 8 5 Urine 1060 1130 Other: Voiding Method Indwelling Catheter Indwelling Catheter ABP, PAP, CO, CI - Last Documented Arterial Blood Pressure 119/66 Pulmonary Artery Pressure 36/26 Cardiac Output 6.4 Cardiac Index 2.9 - Exam No acute distress, sedated but not paralyzed, with an orally placed endotracheal tube and a Dobbhoff tube. HEENT examination is grossly unremarkable. Mucous membranes are moist. Neck supple. Full range of motion. No adenopathy thyromegaly or neck vein distention. Cardiovascular examination reveals regular rhythm rate. S1-S2 normal. No S3 or S4. No discernible murmur noted. Heart sounds are distant. Lungs reveal mostly clear breath sounds. Breath sounds are equal bilaterally. A few scattered rhonchi are noted. A few crackles are appreciated. No wheezes are noted. Breath sounds today are bit improved compared to yesterday's exam. Abdomen soft and bowel sounds are heard. No masses or tenderness. Extremities are intact. No cyanosis clubbing or edema. Skin is without rash or lesion. Neurologic examination is cannot be adequately assessed because of sedation. - Labs CBC & Chem 7: 02/05/18 04:30 02/05/18 04:30 Labs: Abnormal Lab Results - Last 24 Hours (Table) 02/04/18 02/04/18 02/04/18 Range/Units 06:54 08:04 10:09 WBC (3.8-10.6) k/uL RBC (4.30-5.90) m/uL Hgb (13.0-17.5) gm/dL Hct (39.0-53.0) % Neutrophils # (1.3-7.7) k/uL Monocytes # (0-1.0) k/uL ABG pH (7.35-7.45) ABG pO2 (83-108) mmHg ABG HCO3 28 H (21-25) mmol/L ABG Total CO2 30 H (19-24) mmol/L ABG O2 Saturation 97.7 H (94-97) % Chloride (98-107) mmol/L BUN (9-20) mg/dL Glucose (74-99) mg/dL POC Glucose (mg/dL) 152 H 147 H (75-99) mg/dL Magnesium (1.6-2.3) mg/dL Total Protein (6.3-8.2) g/dL Albumin (3.5-5.0) g/dL 02/04/18 02/04/18 02/04/18 Range/Units 10:12 12:09 14:11 WBC (3.8-10.6) k/uL RBC (4.30-5.90) m/uL Hgb (13.0-17.5) gm/dL Hct (39.0-53.0) % Neutrophils # (1.3-7.7) k/uL Monocytes # (0-1.0) k/uL ABG pH (7.35-7.45) ABG pO2 (83-108) mmHg ABG HCO3 (21-25) mmol/L ABG Total CO2 (19-24) mmol/L ABG O2 Saturation (94-97) % Chloride (98-107) mmol/L BUN (9-20) mg/dL Glucose (74-99) mg/dL POC Glucose (mg/dL) 125 H 119 H 121 H (75-99) mg/dL Magnesium (1.6-2.3) mg/dL Total Protein (6.3-8.2) g/dL Albumin (3.5-5.0) g/dL 02/04/18 02/04/18 02/04/18 Range/Units 16:12 17:12 18:14 WBC (3.8-10.6) k/uL RBC (4.30-5.90) m/uL Hgb (13.0-17.5) gm/dL Hct (39.0-53.0) % Neutrophils # (1.3-7.7) k/uL Monocytes # (0-1.0) k/uL ABG pH (7.35-7.45) ABG pO2 (83-108) mmHg ABG HCO3 (21-25) mmol/L ABG Total CO2 (19-24) mmol/L ABG O2 Saturation (94-97) % Chloride (98-107) mmol/L BUN (9-20) mg/dL Glucose (74-99) mg/dL POC Glucose (mg/dL) 102 H 138 H 134 H (75-99) mg/dL Magnesium (1.6-2.3) mg/dL Total Protein (6.3-8.2) g/dL Albumin (3.5-5.0) g/dL 02/04/18 02/04/18 02/04/18 Range/Units 20:10 22:17 23:03 WBC (3.8-10.6) k/uL RBC (4.30-5.90) m/uL Hgb (13.0-17.5) gm/dL Hct (39.0-53.0) % Neutrophils # (1.3-7.7) k/uL Monocytes # (0-1.0) k/uL ABG pH (7.35-7.45) ABG pO2 (83-108) mmHg ABG HCO3 (21-25) mmol/L ABG Total CO2 (19-24) mmol/L ABG O2 Saturation (94-97) % Chloride (98-107) mmol/L BUN (9-20) mg/dL Glucose (74-99) mg/dL POC Glucose (mg/dL) 118 H 105 H 120 H (75-99) mg/dL Magnesium (1.6-2.3) mg/dL Total Protein (6.3-8.2) g/dL Albumin (3.5-5.0) g/dL 02/05/18 02/05/18 02/05/18 Range/Units 00:10 02:09 04:04 WBC (3.8-10.6) k/uL RBC (4.30-5.90) m/uL Hgb (13.0-17.5) gm/dL Hct (39.0-53.0) % Neutrophils # (1.3-7.7) k/uL Monocytes # (0-1.0) k/uL ABG pH (7.35-7.45) ABG pO2 (83-108) mmHg ABG HCO3 (21-25) mmol/L ABG Total CO2 (19-24) mmol/L ABG O2 Saturation (94-97) % Chloride (98-107) mmol/L BUN (9-20) mg/dL Glucose (74-99) mg/dL POC Glucose (mg/dL) 123 H 118 H 123 H (75-99) mg/dL Magnesium (1.6-2.3) mg/dL Total Protein (6.3-8.2) g/dL Albumin (3.5-5.0) g/dL 02/05/18 02/05/18 02/05/18 Range/Units 04:30 04:30 05:45 WBC 27.4 H (3.8-10.6) k/uL RBC 3.49 L (4.30-5.90) m/uL Hgb 10.9 L (13.0-17.5) gm/dL Hct 33.4 L (39.0-53.0) % Neutrophils # 21.3 H (1.3-7.7) k/uL Monocytes # 2.1 H (0-1.0) k/uL ABG pH 7.50 H (7.35-7.45) ABG pO2 68 L (83-108) mmHg ABG HCO3 28 H (21-25) mmol/L ABG Total CO2 29 H (19-24) mmol/L ABG O2 Saturation (94-97) % Chloride 109 H (98-107) mmol/L BUN 50 H (9-20) mg/dL Glucose 116 H (74-99) mg/dL POC Glucose (mg/dL) (75-99) mg/dL Magnesium 3.1 H (1.6-2.3) mg/dL Total Protein 5.4 L (6.3-8.2) g/dL Albumin 3.0 L (3.5-5.0) g/dL 02/05/18 Range/Units 06:50 WBC (3.8-10.6) k/uL RBC (4.30-5.90) m/uL Hgb (13.0-17.5) gm/dL Hct (39.0-53.0) % Neutrophils # (1.3-7.7) k/uL Monocytes # (0-1.0) k/uL ABG pH (7.35-7.45) ABG pO2 (83-108) mmHg ABG HCO3 (21-25) mmol/L ABG Total CO2 (19-24) mmol/L ABG O2 Saturation (94-97) % Chloride (98-107) mmol/L BUN (9-20) mg/dL Glucose (74-99) mg/dL POC Glucose (mg/dL) 116 H (75-99) mg/dL Magnesium (1.6-2.3) mg/dL Total Protein (6.3-8.2) g/dL Albumin (3.5-5.0) g/dL Microbiology - Last 24 Hours (Table) 02/03/18 01:25 Gram Stain - Preliminary Sputum Sputum Culture - Preliminary Assessment and Plan Assessment: Assessment Postop day #5, status post off-pump 2 vessel bypass grafting Postoperative mechanical ventilatory support Postoperative hypoxemic respiratory failure, likely secondary to acute respiratory distress syndrome (ARDS). Recent acute non-ST segment elevation myocardial infarction History of hypertension Chronic tobacco dependence and underlying COPD Obesity History of generalized anxiety disorder Plan: Plan dated 02/02/2018 Current blood gases are adequate. There will be no PEEP changes at this time. The first thing to be reduced to be the FiO2. The patient is not ready for weaning obviously given his unstable respiratory and cardiovascular status. Tube feeds should be started as soon as possible. A Dobbhoff feeding tube was placed by thoracic surgery. The patient should not receive any bicarbonate at this time. Urine culture showed evidence of Klebsiella pneumoniae. We'll check to make sure the patient's on adequate antibiotics. The rest of his medications were reviewed. Medications are currently reviewed. White count is 34, hemoglobin 13.5, hematocrit 40.4, and platelet count 267,000. Sodium 141 potassium 4.3 chloride is 106 CO2 is 20. BUN and creatinine are 15 and 1.21. Anion gap is 15. Overall prognosis remains guarded. The patient will likely require long-term mechanical ventilatory support. Again, the goal would be a low tidal volume high PEEP strategy. Additional recommendations and suggestions are forthcoming. Medications labs are reviewed. Critical care time 37 minutes Plan dated 02/03/2018 Today we will hold the patient's paralytic. We'll see if we can manage him without it. We'll continue to drop the FiO2. It was a drop down to 60%. Hopefully, later today or tomorrow drop down to 50% at which time we can begin to start to make PEEP changes. Currently he is on a PEEP of 18. He is receiving nourishment. A Dobbhoff to was placed by thoracic surgery. His chest x-ray looks relatively stable. White count is 28.2, hemoglobin 10.8, hematocrit 33.5, and platelet count 264,000. Sodium 140, potassium 4.8, chlorides 108, CO2 25, anion gap is normal, BUN 31, and creatinine is 1.58. We will continue with mechanical ventilatory support and best supportive care. Prognosis is guarded. The patient's on appropriate medications which have been reviewed. Microbiologic studies thus far are negative. Critical care time 35 minutes Plan dated 02/04/2018 The patient's currently off the fentanyl drip and the paralytic. The patient remains on propofol 70 mics per kilogram per minute. The lactated Ringer's will be decreased to 20 mL an hour. The patient remains on an insulin drip at 12 units an hour. He is being nourished. A repeat arterial blood gas will be done at 10 AM. If it looks good, I will likely make another PEEP change. Urine was positive for Klebsiella and is on appropriate antibiotic. White count is 25.6, hemoglobin 10.5, hematocrit 31.4 and platelet count 318,000. Sodium and potassium are normal. Chlorides 108, CO2 27, anion gap is normal, and BUN is 39 with a creatinine of 1.17. The patient's overall prognosis remains guarded. We'll continue to follow him very closely. His respiratory status is certainly a concern. Hopefully blood gases at 10 would be excellent and we'll be able to make another PEEP change. Critical care time 36 minutes Plan dated 02/05/2018 Currently, the patient is doing reasonably well. His oxygenation has improved and would be able to wean his PEEP down to 10 from 18 and also reduce his FiO2 from on percent to 50%. Chest x-ray shows some changes at the left base. His urine is positive for Klebsiella and S2 being covered. Today, we will do a daily interruption of sedation with a spontaneous breathing trial on a PSV of 10 and CPAP of 5. We will continue with nourishment with the vital high protein. He is also on lactated Ringer's at 20 mL an hour. White count is 27.4 , hemoglobin 10.9, hematocrit 33.4 and platelet count 362,000. Sodium is 141 potassium 4.8 chlorides 109 CO2 25 anion gap is normal at 7 BUN 50 creatinine 1.17. Medications are reviewed. Everything seems appropriate. We'll continue to follow. Prognosis is guarded. Critical care time 34 minutes Time with Patient: Greater than 30
[2018-02-05] MEDS: FORMOTEROL FUMARATE 20 MCG/2 ML NEBU INHALATION SCH ×2 (07:21→19:00)
[2018-02-05] MEDS: BUDESONIDE 1 MG/2 ML NEBU INHALATION SCH ×2 (07:21→19:00)
--- NOTE | 2018-02-05 07:56 | PN ---
PROGRESS NOTE Mr. Castillo is a 42-year-old male who presented with non ST-segment elevation myocardial infarction, underwent coronary artery bypass grafting with ANJERA to LAD and radial off the NAJERA to the right coronary artery. He had a postoperative respiratory failure with ARDS. Hemodynamically, he is stable. He is on the lower PEEP. His oxygenation remains stable. There is no evidence of history of tachyarrhythmia or bradyarrhythmia. His urine output has been stable. There is no evidence of hypotension. His FiO2 is down. He continues to be on aspirin, Lipitor 40 mg daily, Plavix 75 mg daily, metoprolol tartrate 50 mg twice a day. PHYSICAL EXAMINATION: Blood pressure 119/60 with the heart rate in the 70s. LUNGS: Clear anteriorly. HEART: Regular rate and rhythm. S1, S2. No S3. No rub appreciated. ABDOMEN: Soft. Positive bowel sounds. No organomegaly. EXTREMITIES: No edema. LAB DATA: Lab data revealed pH 7.5, pO2 68. BUN and creatinine 15 and 1.17. IMPRESSION: 1. Status post coronary artery bypass grafting. 2. Acute respiratory distress syndrome. 3. Prior history of smoking. 4. History of hyperlipidemia. 5. History of hypertension. RECOMMENDATION: We will continue supportive care from the cardiac standpoint. Attempt to wean him and extubate him will be initiated by Dr. Castro. Clinically, his overall respiratory status is better than it was over the last 48 hours. ISAAC / CASTRO: [id number] /
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
[2018-02-05] MEDS: CISATRACURIUM 2 MG/ML 5 ML VIAL IV ONE ×2 (08:50→09:37)
[2018-02-05] MEDS: HYDROmorphone 1 MG/ML 1 ML SYRINGE IVP PRN ×5 (08:56→22:14)
[2018-02-05] MEDS: CLEVIDIPINE BUTYRATE 25 MG in EMPTY BAG 1 BAG IV SCH ×10 (09:13→23:15)
[2018-02-05] MEDS: LACTATED RINGERS 1,000 ML IV SCH (09:32)
[2018-02-05] MEDS: ASPIRIN 325 MG TAB PO SCH (09:34)
[2018-02-05] MEDS: CHLORHEXIDINE GLUCONATE 15 ML CUP MUCOUS MEM SCH ×2 (09:35→21:39)
[2018-02-05] MEDS: ATORVASTATIN 40 MG TAB PO SCH (09:35)
[2018-02-05] MEDS: CLOPIDOGREL 75 MG TAB PO SCH (09:35)
[2018-02-05] MEDS: METOPROLOL TARTRATE 50 MG TAB PO SCH ×3 (09:36→23:19)
[2018-02-05] MEDS: PANTOPRAZOLE 40 MG/10 ML VIAL IVP SCH (09:36)
[2018-02-05] MEDS ORDERED: CISATRACURIUM 2 MG/ML 5 ML VIAL IV ONE (09:37)
[2018-02-05] MEDS: cefTRIAXone 2,000 MG in SODIUM CHLORIDE 0.9% 100 ML IVPB SCH (09:43)
[2018-02-05] MEDS: INSULIN REGULAR 100 UNIT in SODIUM CHLORIDE 0.9% 100 ML IV SCH (09:51)
[2018-02-05 10:18] LABS: Glucose,Whole Blood 167 mg/dL (75-99)
[2018-02-05 10:41] LABS: ABG Base Excess 2.8 mmol/L; ABG HCO3 26 mmol/L (21-25); ABG Oxygen Saturation 90.9 % (94-97); ABG PCO2 31 mmHg (35-45); ABG PH 7.53 (7.35-7.45); ABG TCO2 27 mmol/L (19-24)
[2018-02-05 10:42] LABS: ABG PO2 58 mmHg (83-108)
[2018-02-05] MEDS: CISATRACURIUM 200 MG in SODIUM CHLORIDE 0.9% 180 ML IV SCH (11:04)
[2018-02-05 11:30] LABS: Glucose,Whole Blood 155 mg/dL (75-99)
[2018-02-05] MEDS ORDERED: METOPROLOL TARTRATE 5 MG/5 ML VIAL IVP STA ×2 (11:43→12:25)
[2018-02-05] MEDS: amLODIPine 5 MG TAB PO SCH (12:48)
[2018-02-05 13:20] LABS: Glucose,Whole Blood 130 mg/dL (75-99)
[2018-02-05 14:40] LABS: Glucose,Whole Blood 131 mg/dL (75-99)
[2018-02-05 15:09] LABS: ABG Base Excess 1.8 mmol/L; ABG HCO3 27 mmol/L (21-25); ABG Oxygen Saturation 92.6 % (94-97); ABG PCO2 44 mmHg (35-45); ABG PO2 70 mmHg (83-108); ABG TCO2 28 mmol/L (19-24)
[2018-02-05 17:14] LABS: Glucose,Whole Blood 139 mg/dL (75-99)
[2018-02-05 19:12] LABS: Glucose,Whole Blood 123 mg/dL (75-99)
[2018-02-05 21:36] LABS: Glucose,Whole Blood 124 mg/dL (75-99)
[2018-02-05] MEDS: SENNOSIDES-DOCUSATE SODIUM 1 EACH TAB PO SCH (21:50)
[2018-02-05] MEDS: hydrALAZINE HCL 20 MG/ML 1 ML VIAL IVP PRN (21:54)
[2018-02-05 23:27] LABS: Glucose,Whole Blood 132 mg/dL (75-99)
[2018-02-06] MEDS: CISATRACURIUM 200 MG in SODIUM CHLORIDE 0.9% 180 ML IV SCH (00:03)
[2018-02-06] MEDS: PROPOFOL 1,000 MG in EMPTY BAG 1 BAG IV SCH ×11 (01:00→23:49)
[2018-02-06] MEDS: CLEVIDIPINE BUTYRATE 25 MG in EMPTY BAG 1 BAG IV SCH ×12 (01:00→21:28)
[2018-02-06] MEDS: INSULIN REGULAR 100 UNIT in SODIUM CHLORIDE 0.9% 100 ML IV SCH ×2 (01:09→15:53)
[2018-02-06] MEDS: methylPREDNISolone SOD SUCCI 40 MG/ML 1 ML VIAL IV SCH ×3 (01:09→19:30)
[2018-02-06] MEDS: ARTIFICIAL TEARS-HYPROMELLOSE DROPS 15 ML BTL BOTH EYES SCH ×7 (01:09→23:49)
[2018-02-06 01:52] LABS: Glucose,Whole Blood 151 mg/dL (75-99)
[2018-02-06] MEDS: IPRATROPIUM-ALBUTEROL 3 ML NEB INHALATION SCH ×6 (03:26→23:58)
[2018-02-06] MEDS: HYDROmorphone 1 MG/ML 1 ML SYRINGE IVP PRN ×4 (03:38→23:51)
[2018-02-06 03:58] LABS: Glucose,Whole Blood 175 mg/dL (75-99)
[2018-02-06 05:02] LABS: HCT 37.4 % (39.0-53.0); HGB 12.6 gm/dL (13.0-17.5); MCH 32.6 pg (25.0-35.0); MCHC 33.5 g/dL (31.0-37.0); MCV 97.1 fL (80.0-100.0); Platelet Count 413 k/uL (150-450); RBC 3.85 m/uL (4.30-5.90); RDW 13.9 % (11.5-15.5)
[2018-02-06 05:04] LABS: Glucose,Whole Blood 165 mg/dL (75-99)
[2018-02-06 05:16] LABS: ALT 98 U/L (21-72); AST 59 U/L (17-59); Albumin 3.3 g/dL (3.5-5.0); Alkaline Phosphatase 55 U/L (38-126); Anion Gap 9 mmol/L; Blood Urea Nitrogen 46 mg/dL (9-20); Calcium 9.1 mg/dL (8.4-10.2); Carbon Dioxide 22 mmol/L (22-30); Chloride 111 mmol/L (98-107); Glucose 165 mg/dL (74-99); Sodium 142 mmol/L (137-145); Total Bilirubin 0.6 mg/dL (0.2-1.3); Total Protein 6.1 g/dL (6.3-8.2)
[2018-02-06 05:25] LABS: Potassium 5.1 mmol/L (3.5-5.1)
[2018-02-06 05:40] LABS: ABG HCO3 27 mmol/L (21-25); ABG Oxygen Saturation 93.9 % (94-97); ABG PCO2 43 mmHg (35-45); ABG PH 7.41 (7.35-7.45); ABG PO2 73 mmHg (83-108); ABG TCO2 28 mmol/L (19-24)
[2018-02-06 05:52] LABS: Band Neutrophils % 2 %; Lymphocytes # (M) 3.32 k/uL (1.0-4.8); Monocytes # (M) 2.32 k/uL (0-1.0); Myelocytes # (M) 2.66 k/uL (0); Myelocytes % 8 %; Neutrophils % (M) 74 %; Nucleated Red Blood Cells 4 /100 WBC (0-0); Total Cells Counted 200; WBC 33.2 k/uL (3.8-10.6)
[2018-02-06 05:53] LABS: Polychromasia Present
[2018-02-06] MEDS: KETOROLAC 30 MG/ML 1 ML VIAL IVP SCH ×3 (06:57→19:29)
[2018-02-06 07:09] LABS: Glucose,Whole Blood 129 mg/dL (75-99)
--- NOTE | 2018-02-06 07:20 | XR ---
EXAMINATION TYPE: XR chest 1V portable DATE OF EXAM: 02/06/2018 COMPARISON: 02/05/2018 INDICATION: Post cardiac surgery, difficulty breathing TECHNIQUE: Single frontal view of the chest is obtained. FINDINGS: The heart size is enlarged. The pulmonary vasculature is normal. There is a small left pleural effusion. Left-sided chest tube remains present. Endotracheal tube olga ins present. Sternotomy wires are in the midline. IMPRESSION: 1. Lines and catheters discussed above. 2. Small left pleural effusion. Some left basilar infiltrate may remain present but is improved from comparison.
[2018-02-06] MEDS: BUDESONIDE 1 MG/2 ML NEBU INHALATION SCH ×2 (07:33→19:58)
[2018-02-06] MEDS: FORMOTEROL FUMARATE 20 MCG/2 ML NEBU INHALATION SCH ×3 (07:33→19:59)
--- NOTE | 2018-02-06 08:44 | PN ---
PROGRESS NOTE Mr. Castillo is a 42-year-old male who presented with non ST-segment elevation myocardial infarction, underwent coronary artery bypass grafting. Postoperatively, he had ARDS. Attempts to try weaning him yesterday were unsuccessful. He is back on Nimbex and propofol. He is sedated. Hemodynamically he is in sinus mechanism with episode of sinus tachycardia. He has episode of hypertension, otherwise there is no evidence of ventricular ectopic activity. He continues to be at this time on amlodipine 5 mg daily, aspirin once a day, Lipitor 40 mg daily, Plavix 75 mg daily, metoprolol tartrate 50 mg IV q.8 hours. PHYSICAL EXAMINATION: Blood pressure 116/60 with the heart rate in the low 100s. LUNGS: Clear to auscultation anteriorly. HEART: Regular rate and rhythm. S1, S2. No S3 with systolic murmur. No diastolic murmur. No rub. ABDOMEN: Soft. Positive bowel sounds. No organomegaly. EXTREMITIES: Trace to 1+ edema. LAB DATA: Lab data revealed BUN and creatinine 46 and 0.93. Potassium 5.1. Hemoglobin 12.6, white blood cells 33.2. He has been started on steroids which could explain the elevation of his white blood cells. IMPRESSION: 1. Status post coronary artery bypass grafting with NAJERA to LAD and radial artery to the right coronary artery off the NAJERA. 2. Acute respiratory distress syndrome with respiratory failure requiring high PEEP, stabilizing. 3. Hypertension. 4. Hyperlipidemia. RECOMMENDATION: From the cardiac standpoint, I will continue on the present therapy. Will adjust his antihypertensive regimen. I will add an MYLES inhibitor to his regimen. We will follow his renal function. Hopefully we can continue to wean his PEEP down and depending on his progress, further recommendation will be made. MMODL / IJN: [id number] /
[2018-02-06] MEDS: HEPARIN SODIUM,PORCINE 5,000 UNIT/ML 1 ML VIAL SQ SCH ×3 (08:46→23:50)
[2018-02-06] MEDS: LACTATED RINGERS 1,000 ML IV SCH (08:47)
[2018-02-06] MEDS: CHLORHEXIDINE GLUCONATE 15 ML CUP MUCOUS MEM SCH ×2 (08:48→19:30)
[2018-02-06] MEDS: ASPIRIN 325 MG TAB PO SCH (08:48)
[2018-02-06] MEDS: ATORVASTATIN 40 MG TAB PO SCH (08:48)
[2018-02-06] MEDS: CLOPIDOGREL 75 MG TAB PO SCH (08:48)
[2018-02-06] MEDS: PANTOPRAZOLE 40 MG/10 ML VIAL IVP SCH (08:49)
[2018-02-06] MEDS ORDERED: METOPROLOL TARTRATE 25 MG TAB PO SCH (09:00)
[2018-02-06] MEDS: LISINOPRIL 2.5 MG TAB PO SCH ×2 (09:04→19:29)
[2018-02-06] MEDS: cefTRIAXone 2,000 MG in SODIUM CHLORIDE 0.9% 100 ML IVPB SCH (09:11)
[2018-02-06 09:20] LABS: ABG Base Excess 3.5 mmol/L; ABG HCO3 28 mmol/L (21-25); ABG Oxygen Saturation 95.7 % (94-97); ABG PCO2 42 mmHg (35-45); ABG PH 7.43 (7.35-7.45); ABG PO2 76 mmHg (83-108); ABG TCO2 29 mmol/L (19-24)
--- NOTE | 2018-02-06 09:23 | P.PN ---
Subjective Progress Note Date: 02/06/18 Principal diagnosis: Status post off-pump 2 vessel bypass grafting Progress note dated 02/02/2018 42-year-old male postop day #2, status post off-pump two-vessel bypass grafting. Unfortunately, the patient has profound postoperative hypoxemic respiratory failure and likely has acute respiratory distress syndrome, although the etiology of ARDS is unclear given the fact that the patient wasn't off-pump bypass. He also has a history of recent acute non-ST segment elevation myocardial infarction, hypertension, chronic tobacco dependence and underlying COPD, obesity, and generalized anxiety disorder. Currently, the patient remains on the volume assist control mode. His current settings include a rate of 34, tidal volume 400, FiO2 on percent, and PEEP of 18. His arterial blood gases show a PaO2 of 60 to a PaCO2 of 48 and a pH of 7.32. Prior blood gases on volume assist control mode of 32 tidal volume 420 FiO2 100 % PEEP of 16 show a PaO2 of 80 to a PaCO2 of 61 and a pH of 7.16. The patient was admitted to the hospital on January 29 and had surgery on January 31. Currently, the patient's on Primacor at 0.1 mics per kilogram per minute, Cardizem drip at 10 mg an hour, Cleveprex which is currently on hold, fentanyl at 50 mcg/h, Nimbex at 1 britt per kilogram per minute, insulin drip at 10.5 units an hour and propofol 65 mcg/kg/m. The patient's chest x-ray shows typical post op changes with some left lower lobe atelectasis and infiltrate. Also, the endotracheal tube should be pushed down 1.5 cm. Also, a feeding tube was placed by thoracic surgery. Progress note dated 02/03/2018 42-year-old male, postop day #3, status post off-pump two-vessel bypass grafting. He developed profound postoperative hypoxemic respiratory failure with presumed acute respiratory distress syndrome. The etiology of the acute respiratory distress syndrome is not clear. He also has a recent history of acute non-ST segment elevation myocardial infarction, hypertension, chronic tobacco dependence, and underlying COPD. In addition, he has obesity and generalized anxiety disorder. He currently remains on the ventilator. He is on the volume assist control mode rate of 34, tidal volume 400, FiO2 70% to be dropped to 60%, and a PEEP of 8. Blood gases show a PaO2 of 87 a PaCO2 51 and a pH is 7.3. This is consistent with a very mild respiratory acidosis. Currently, his chest x-ray looks pretty good. He is receiving vital high protein at 20 with a goal of 20. In addition, he is on Nimbex at 1 britt per kilogram per minute, to be placed on hold, lactated Ringer's at 50 mL an hour, propofol at 50 mics per kilogram per minute, fentanyl 50 mcg/h, and insulin at 9.5 units per hour. Yesterday, the patient's FiO2 was 100%. He has made progress overnight. Microbiology is negative currently. Yesterday, thoracic surgery placed a feeding tube. Progress note dated 02/04/2018 42-year-old male, postop day #4, status post TWO-VESSEL BYPASS GRAFTING. UNFORTUNATELY, THE PATIENT DEVELOPED PROFOUND HYPOXEMIC RESPIRATORY FAILURE POST SURGICALLY. HE'S LIKELY DEVELOPED ACUTE RESPIRATORY DISTRESS SYNDROME ALTHOUGH THE ETIOLOGY OF THE ACUTE RESPIRATORY DISTRESS SYNDROME IN THIS PATIENT IS NOT CLEAR. THERE IS NO OBVIOUS INFECTION AND HE WAS NOT ON CARDIO PULMONARY BYPASS. THE PATIENT WAS ADMITTED WITH A DIAGNOSIS OF ACUTE NON-ST SEGMENT ELEVATION MYOCARDIAL INFARCTION, BENIGN ESSENTIAL HYPERTENSION, CHRONIC TOBACCO DEPENDENCE, AND COPD. HE ALSO SUFFERS FROM GENERALIZED ANXIETY DISORDER. CURRENTLY, HE REMAINS ON THE VOLUME ASSIST CONTROL MODE WITH A RATE OF 34, TIDAL VOLUME IS 400, FIO2 50%, AND PEEP OF 15. On THOSE SAME SETTINGS WITH A PEEP OF 18, HIS PO2 WAS 83, PACO2 WAS 42 AND HIS PH WAS 7.42. The PATIENT IS CURRENTLY ON PROPOFOL AT 70 MICS PER KILOGRAM PER MINUTE, LACTATED RINGER'S AT 20 ML AN HOUR, INSULIN DRIP AT 12 UNITS AN HOUR AND VITAL HIGH PROTEIN AT 31 WITH A GOAL OF 31 ML AN HOUR. WE ARE GOING TO REPEAT A BLOOD GAS AT 10 AM. THE PATIENT CHANGES MADE ABOUT 7 AM. IF EVERYTHING LOOKS GOOD, WE' LL MAKE ANOTHER PEEP CHANGE. HIS CHEST X-RAY IS ALMOST LOOKED PRETTY GOOD AND IT LOOKS CLEAN AGAIN TODAY. Progress note dated 02/05/2018 42-year-old male, postop day 5, status post two-vessel bypass grafting. The patient unfortunately developed profound hypoxemic respiratory failure in the postoperative phase. He likely developed acute respiratory distress syndrome although the etiology of this is unclear. The patient initially was on 100% and 18 of PEEP. Remember to wean him down now. Currently, his vent settings include the volume assist control mode, rate 34, tidal volume 400, FiO2 50% and PEEP of 10. On those settings, his blood gases show a PaO2 of 68, PaCO2 36 and a pH 7.50. The blood gases are consistent with a combined respiratory and mild metabolic alkalosis. The patient's fluids included lactated Ringer's at 20 mL an hour, propofol 70 mics per kilogram per minute and vital high protein at 31 with a goal of 31 mL an hour. The patient does have Klebsiella in his urine and that's being covered. His chest x-ray show some postoperative changes, a small left pleural effusion and basilar atelectasis. Overall, his condition has improved. Today, we will hold his sedation and do a spontaneous breathing trial on PSV 10 CPAP of 5. He may or may not be ready for extubation. In addition to the above, he has a history of acute non-ST segment elevation myocardial infarction, hypertension, chronic tobacco dependence and underlying COPD. Progress note dated 02/06/2018 42-year-old male, postop day #6, status post off-pump two-vessel bypass grafting. Unfortunately, the patient developed profound hypoxemic respiratory failure in the immediate postoperative phase. He likely has acute respiratory distress syndrome although its etiology is unclear. The patient was initially on 100% and 18 of PEEP. He been able to wean that down. Currently, the patient is on the VC plus mode, rate of 34, tidal volume 450, FiO2 50% and PEEP of 13. The blood gases show a PaO2 of 73 PaCO2 of 43 and a pH of 7.41. The patient's chest x-ray shows some mild bilateral infiltrates. She is currently on lactated Ringer's at 20 mL an hour, vital high protein at 31 with a goal of 31 mL an hour, Nimbex at 2 mics per kilogram per minute, Cleveprex at 21 mg an hour, propofol at 75 mics per kilogram per minute, and insulin at 9 units per hour. The patient's situation is very dire. He is very critically O. His prognosis is very guarded. The nurse gave him a sedation holiday off the paralytic but apparently he became dyssynchronous with the ventilator and we had to re-paralyze him. Microbiology shows evidence of Klebsiella in the urine. This is currently being treated. Objective - Vital Signs Vital signs: Vital Signs Temp 99.1 F 02/06/18 08:00 Pulse 114 H 02/06/18 09:01 Resp 34 H 02/06/18 09:01 BP 145/71 02/06/18 01:15 Pulse Ox 93 L 02/06/18 09:01 Intake & Output 02/05/18 02/06/18 02/06/18 18:59 06:59 18:59 Intake Total 1796.176 2582.818 353.9 Output Total 1650 1500 450 Balance -255.050 360.818 -96.1 Weight 106.3 kg 107 kg Intake: IV 253 276 69 Lactated Ringers 1,000 ml 220 240 60 @ 20 mls/hr IV .Q24H [facility] Rx#:[id number] Pressure Bag 33 36 9 Intake, IV Titration 361.616 0044.818 161.9 Amount Cisatracurium 200 mg In 165.537 Sodium Chloride 0.9% 180 ml @ 1 MCG/KG/MIN 6.37 mls/hr IV .Q24H [facility]ICH[facility] Rx#: [id number] Clevidipine Butyrate 25 172.533 431.9 61.9 mg In Empty Bag 1 bag @ 1 MG/HR 2 mls/hr IV .Q24H [facility] Rx#:[id number] Insulin Regular 100 unit 37.168 121.656 In Sodium Chloride 0.9% 100 ml @ Per Protocol IV .Q0M [facility] Rx#:[id number] Lactated Ringers 1,000 ml 40 @ 20 mls/hr IV .Q24H [facility] Rx#:[id number] Propofol 1,000 mg In 441.249 558.725 100 Empty Bag 1 bag @ Titrate IV .Q0M [facility] Rx#: [id number] Oral 50 Tube Feeding 491 217 93 Other 30 Output: Chest Tube Drainage 5 30 left pleural 5 30 Drainage 0 0 left forearm 0 0 Urine 1645 1470 450 Other: Voiding Method Indwelling Catheter Indwelling Catheter ABP, PAP, CO, CI - Last Documented Arterial Blood Pressure 149/73 Pulmonary Artery Pressure 36/26 Cardiac Output 6.4 Cardiac Index 2.9 - Exam No acute distress, sedated and paralyzed, with an orally placed endotracheal tube and a Dobbhoff tube. HEENT examination is grossly unremarkable. Mucous membranes are moist. Neck supple. Full range of motion. No adenopathy thyromegaly or neck vein distention. Cardiovascular examination reveals regular rhythm rate. S1-S2 normal. No S3 or S4. No discernible murmur noted. Heart sounds are distant. Lungs reveal mostly clear breath sounds. Breath sounds are equal bilaterally. Scattered rhonchi are noted bilaterally. A few scattered crackles are also noted. Breath sounds are about the same as they were yesterday. Abdomen soft and bowel sounds are heard. No masses or tenderness. Extremities are intact. No cyanosis clubbing or edema. Skin is without rash or lesion. Neurologic examination is cannot be adequately assessed because of sedation. - Labs CBC & Chem 7: 02/06/18 04:40 02/06/18 04:40 Labs: Abnormal Lab Results - Last 24 Hours (Table) 02/05/18 02/05/18 02/05/18 Range/Units 09:48 10:39 11:00 WBC (3.8-10.6) k/uL RBC (4.30-5.90) m/uL Hgb (13.0-17.5) gm/dL Hct (39.0-53.0) % Neutrophils # (Manual) (1.3-7.7) k/uL Monocytes # (Manual) (0-1.0) k/uL Myelocytes # (Manual) (0) k/uL Nucleated RBCs (0-0) /100 WBC ABG pH 7.53 H (7.35-7.45) ABG pCO2 31 L (35-45) mmHg ABG pO2 58 L* (83-108) mmHg ABG HCO3 26 H (21-25) mmol/L ABG Total CO2 27 H (19-24) mmol/L ABG O2 Saturation 90.9 L (94-97) % Chloride (98-107) mmol/L BUN (9-20) mg/dL Glucose (74-99) mg/dL POC Glucose (mg/dL) 167 H 155 H (75-99) mg/dL Magnesium (1.6-2.3) mg/dL ALT (21-72) U/L Total Protein (6.3-8.2) g/dL Albumin (3.5-5.0) g/dL 02/05/18 02/05/18 02/05/18 Range/Units 12:50 14:28 15:07 WBC (3.8-10.6) k/uL RBC (4.30-5.90) m/uL Hgb (13.0-17.5) gm/dL Hct (39.0-53.0) % Neutrophils # (Manual) (1.3-7.7) k/uL Monocytes # (Manual) (0-1.0) k/uL Myelocytes # (Manual) (0) k/uL Nucleated RBCs (0-0) /100 WBC ABG pH (7.35-7.45) ABG pCO2 (35-45) mmHg ABG pO2 70 L (83-108) mmHg ABG HCO3 27 H (21-25) mmol/L ABG Total CO2 28 H (19-24) mmol/L ABG O2 Saturation 92.6 L (94-97) % Chloride (98-107) mmol/L BUN (9-20) mg/dL Glucose (74-99) mg/dL POC Glucose (mg/dL) 130 H 131 H (75-99) mg/dL Magnesium (1.6-2.3) mg/dL ALT (21-72) U/L Total Protein (6.3-8.2) g/dL Albumin (3.5-5.0) g/dL 02/05/18 02/05/18 02/05/18 Range/Units 17:02 19:00 21:25 WBC (3.8-10.6) k/uL RBC (4.30-5.90) m/uL Hgb (13.0-17.5) gm/dL Hct (39.0-53.0) % Neutrophils # (Manual) (1.3-7.7) k/uL Monocytes # (Manual) (0-1.0) k/uL Myelocytes # (Manual) (0) k/uL Nucleated RBCs (0-0) /100 WBC ABG pH (7.35-7.45) ABG pCO2 (35-45) mmHg ABG pO2 (83-108) mmHg ABG HCO3 (21-25) mmol/L ABG Total CO2 (19-24) mmol/L ABG O2 Saturation (94-97) % Chloride (98-107) mmol/L BUN (9-20) mg/dL Glucose (74-99) mg/dL POC Glucose (mg/dL) 139 H 123 H 124 H (75-99) mg/dL Magnesium (1.6-2.3) mg/dL ALT (21-72) U/L Total Protein (6.3-8.2) g/dL Albumin (3.5-5.0) g/dL 02/05/18 02/06/18 02/06/18 Range/Units 23:07 01:26 03:35 WBC (3.8-10.6) k/uL RBC (4.30-5.90) m/uL Hgb (13.0-17.5) gm/dL Hct (39.0-53.0) % Neutrophils # (Manual) (1.3-7.7) k/uL Monocytes # (Manual) (0-1.0) k/uL Myelocytes # (Manual) (0) k/uL Nucleated RBCs (0-0) /100 WBC ABG pH (7.35-7.45) ABG pCO2 (35-45) mmHg ABG pO2 (83-108) mmHg ABG HCO3 (21-25) mmol/L ABG Total CO2 (19-24) mmol/L ABG O2 Saturation (94-97) % Chloride (98-107) mmol/L BUN (9-20) mg/dL Glucose (74-99) mg/dL POC Glucose (mg/dL) 132 H 151 H 175 H (75-99) mg/dL Magnesium (1.6-2.3) mg/dL ALT (21-72) U/L Total Protein (6.3-8.2) g/dL Albumin (3.5-5.0) g/dL 02/06/18 02/06/18 02/06/18 Range/Units 04:40 04:40 04:51 WBC 33.2 H (3.8-10.6) k/uL RBC 3.85 L (4.30-5.90) m/uL Hgb 12.6 L (13.0-17.5) gm/dL Hct 37.4 L (39.0-53.0) % Neutrophils # (Manual) 25.20 H (1.3-7.7) k/uL Monocytes # (Manual) 2.32 H (0-1.0) k/uL Myelocytes # (Manual) 2.66 H (0) k/uL Nucleated RBCs 4 H (0-0) /100 WBC ABG pH (7.35-7.45) ABG pCO2 (35-45) mmHg ABG pO2 (83-108) mmHg ABG HCO3 (21-25) mmol/L ABG Total CO2 (19-24) mmol/L ABG O2 Saturation (94-97) % Chloride 111 H (98-107) mmol/L BUN 46 H (9-20) mg/dL Glucose 165 H (74-99) mg/dL POC Glucose (mg/dL) 165 H (75-99) mg/dL Magnesium 3.0 H (1.6-2.3) mg/dL ALT 98 H (21-72) U/L Total Protein 6.1 L (6.3-8.2) g/dL Albumin 3.3 L (3.5-5.0) g/dL 02/06/18 02/06/18 Range/Units 05:37 06:47 WBC (3.8-10.6) k/uL RBC (4.30-5.90) m/uL Hgb (13.0-17.5) gm/dL Hct (39.0-53.0) % Neutrophils # (Manual) (1.3-7.7) k/uL Monocytes # (Manual) (0-1.0) k/uL Myelocytes # (Manual) (0) k/uL Nucleated RBCs (0-0) /100 WBC ABG pH (7.35-7.45) ABG pCO2 (35-45) mmHg ABG pO2 73 L (83-108) mmHg ABG HCO3 27 H (21-25) mmol/L ABG Total CO2 28 H (19-24) mmol/L ABG O2 Saturation 93.9 L (94-97) % Chloride (98-107) mmol/L BUN (9-20) mg/dL Glucose (74-99) mg/dL POC Glucose (mg/dL) 129 H (75-99) mg/dL Magnesium (1.6-2.3) mg/dL ALT (21-72) U/L Total Protein (6.3-8.2) g/dL Albumin (3.5-5.0) g/dL Microbiology - Last 24 Hours (Table) 02/03/18 01:25 Gram Stain - Final Sputum Sputum Culture - Final Assessment and Plan Assessment: Assessment Postop day #6, status post off-pump 2 vessel bypass grafting Postoperative mechanical ventilatory support Postoperative hypoxemic respiratory failure, likely secondary to acute respiratory distress syndrome (ARDS). Recent acute non-ST segment elevation myocardial infarction History of hypertension Chronic tobacco dependence and underlying COPD Obesity History of generalized anxiety disorder Profound hemodynamic instability Plan: Plan dated 02/02/2018 Current blood gases are adequate. There will be no PEEP changes at this time. The first thing to be reduced to be the FiO2. The patient is not ready for weaning obviously given his unstable respiratory and cardiovascular status. Tube feeds should be started as soon as possible. A Dobbhoff feeding tube was placed by thoracic surgery. The patient should not receive any bicarbonate at this time. Urine culture showed evidence of Klebsiella pneumoniae. We'll check to make sure the patient's on adequate antibiotics. The rest of his medications were reviewed. Medications are currently reviewed. White count is 34, hemoglobin 13.5, hematocrit 40.4, and platelet count 267,000. Sodium 141 potassium 4.3 chloride is 106 CO2 is 20. BUN and creatinine are 15 and 1.21. Anion gap is 15. Overall prognosis remains guarded. The patient will likely require long-term mechanical ventilatory support. Again, the goal would be a low tidal volume high PEEP strategy. Additional recommendations and suggestions are forthcoming. Medications labs are reviewed. Critical care time 37 minutes Plan dated 02/03/2018 Today we will hold the patient's paralytic. We'll see if we can manage him without it. We'll continue to drop the FiO2. It was a drop down to 60%. Hopefully, later today or tomorrow drop down to 50% at which time we can begin to start to make PEEP changes. Currently he is on a PEEP of 18. He is receiving nourishment. A Dobbhoff to was placed by thoracic surgery. His chest x-ray looks relatively stable. White count is 28.2, hemoglobin 10.8, hematocrit 33.5, and platelet count 264,000. Sodium 140, potassium 4.8, chlorides 108, CO2 25, anion gap is normal, BUN 31, and creatinine is 1.58. We will continue with mechanical ventilatory support and best supportive care. Prognosis is guarded. The patient's on appropriate medications which have been reviewed. Microbiologic studies thus far are negative. Critical care time 35 minutes Plan dated 02/04/2018 The patient's currently off the fentanyl drip and the paralytic. The patient remains on propofol 70 mics per kilogram per minute. The lactated Ringer's will be decreased to 20 mL an hour. The patient remains on an insulin drip at 12 units an hour. He is being nourished. A repeat arterial blood gas will be done at 10 AM. If it looks good, I will likely make another PEEP change. Urine was positive for Klebsiella and is on appropriate antibiotic. White count is 25.6, hemoglobin 10.5, hematocrit 31.4 and platelet count 318,000. Sodium and potassium are normal. Chlorides 108, CO2 27, anion gap is normal, and BUN is 39 with a creatinine of 1.17. The patient's overall prognosis remains guarded. We'll continue to follow him very closely. His respiratory status is certainly a concern. Hopefully blood gases at 10 would be excellent and we'll be able to make another PEEP change. Critical care time 36 minutes Plan dated 02/05/2018 Currently, the patient is doing reasonably well. His oxygenation has improved and would be able to wean his PEEP down to 10 from 18 and also reduce his FiO2 from on percent to 50%. Chest x-ray shows some changes at the left base. His urine is positive for Klebsiella and S2 being covered. Today, we will do a daily interruption of sedation with a spontaneous breathing trial on a PSV of 10 and CPAP of 5. We will continue with nourishment with the vital high protein. He is also on lactated Ringer's at 20 mL an hour. White count is 27.4 , hemoglobin 10.9, hematocrit 33.4 and platelet count 362,000. Sodium is 141 potassium 4.8 chlorides 109 CO2 25 anion gap is normal at 7 BUN 50 creatinine 1.17. Medications are reviewed. Everything seems appropriate. We'll continue to follow. Prognosis is guarded. Critical care time 34 minutes Plan dated 02/06/2018 Currently, the patient needed to be re-paralyzed. He was dyssynchronous with the ventilator when paralysis was stopped. The patient's chest x-rays reviewed. Labs and medications are reviewed. Remains on the ventilator in the VC plus modality. He remains on Cleveprex propofol and Nimbex. He is receiving nutrition. White blood count is 33.2, hemoglobin 12.6, hematocrit 37.4 and platelet count 413,000. Sodium 142 potassium 5.1 chlorides 111 CO2 22 anion gap 9 BUN 46 and creatinine 0.93. Medications are reviewed. X-rays and labs are all reviewed. I will repeat a blood gas. I'll also make sure the patient is recultured. Blood gas was a PaO2 of 76, a PaCO2 of 42 and a pH is 7.434. I will ask the nurse Christina, to recultured the patient's blood urine and sputum. Additional recommendations and suggestions are forthcoming. Critical care time 36 minutes Time with Patient: Greater than 30
[2018-02-06 10:24] LABS: Glucose,Whole Blood 94 mg/dL (75-99)
[2018-02-06] MEDS ORDERED: METOPROLOL TARTRATE 25 MG TAB PO STA (10:26)
[2018-02-06] MEDS ORDERED: FUROSEMIDE 10 MG/ML 2 ML VIAL IV ONE (10:26)
[2018-02-06] MEDS: amLODIPine 5 MG TAB PO SCH (11:52)
[2018-02-06 12:09] LABS: Glucose,Whole Blood 155 mg/dL (75-99)
[2018-02-06] MEDS: hydrALAZINE HCL 20 MG/ML 1 ML VIAL IVP PRN (13:37)
[2018-02-06 14:13] LABS: Glucose,Whole Blood 176 mg/dL (75-99)
[2018-02-06 16:26] LABS: Glucose,Whole Blood 173 mg/dL (75-99)
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
[2018-02-06 18:43] LABS: Glucose,Whole Blood 144 mg/dL (75-99)
[2018-02-06] MEDS: METOPROLOL TARTRATE 50 MG TAB PO SCH (19:29)
[2018-02-06] MEDS: SENNOSIDES-DOCUSATE SODIUM 1 EACH TAB PO SCH (19:29)
[2018-02-06] MEDS: INSULIN ASPART 100 UNIT/ML 1 ML 10 ML VIAL SQ SCH (20:43)
[2018-02-06] MEDS: INSULIN DETEMIR 100 UNIT/ML 10 ML VIAL SQ SCH (21:27)
[2018-02-06 23:48] LABS: Glucose,Whole Blood 155 mg/dL (75-99)
[2018-02-07] MEDS: KETOROLAC 30 MG/ML 1 ML VIAL IVP SCH ×3 (00:10→12:33)
[2018-02-07] MEDS: INSULIN ASPART 100 UNIT/ML 1 ML 10 ML VIAL SQ SCH ×6 (00:12→20:14)
[2018-02-07] MEDS: CLEVIDIPINE BUTYRATE 25 MG in EMPTY BAG 1 BAG IV SCH ×6 (01:05→15:26)
[2018-02-07] MEDS: hydrALAZINE HCL 20 MG/ML 1 ML VIAL IVP PRN (02:06)
[2018-02-07] MEDS: HYDROmorphone 1 MG/ML 1 ML SYRINGE IVP PRN ×4 (02:10→15:26)
[2018-02-07] MEDS: PROPOFOL 1,000 MG in EMPTY BAG 1 BAG IV SCH ×8 (02:14→21:21)
--- NOTE | 2018-02-07 02:28 | P.PN ---
Subjective Progress Note Date: 02/06/18 Principal diagnosis: Non-ST elevated PR status post coronary artery bypass graft. Mr. Castillo is a 42-year-old male with a past medical history of hypertension, hyperlipidemia, nicotine dependence, coronary artery disease with prior stenting performed in 2003 2004 in [place] coming into the hospital with a chief complaint of chest discomfort in the upper mid sternum. Patient describes it as severe tightness and heaviness and he was short of breath and diaphoretic. Patient pain was so severe that he was unable to speak at the time when he had the chest pain. In the ED patient had elevated troponins and started on IV heparin. Patient subsequently underwent cardiac cath which revealed a total occluded right coronary artery that appeared to be chronically occluded. There is also a complex lesion and in-stent restenosis of the proximal LAD. So he was recommended to get a coronary artery bypass graft that is scheduled for tomorrow morning. Patient has risk factors of smoking for the past 26 years almost 1 pack per day. 02/01/18 - patient is postop day 1. Patient is in the ICU currently on mechanical ventilation. He is sedated with propofol, Nimbex and fentanyl. Patient was hypoxemic on 100% FiO2 yesterday, which could be due to acute lung injury. So his ventilator settings have been adjusted by Dr. Gipson. He is still on Cardizem drip. On 02/02/2018 Patient is still on mechanical ventilator and sedated.. Currently on Cardizem drip. Also present on insulin drip. Dobbhoff tube was placed for nutrition. Chest x-ray showed left lower lobe atelectasis and infiltrate. Patient is with pleural chest tube. Mediastinal chest tube was removed. No fever noted. Pulmonary, CT surgery is following. 02/03/2018 Patient had postoperative hypoxemic respiratory failure due to suspected ARDS. Currently patient is on mechanical ventilator. Currently Cardizem drip is off. Feeding Dobbhoff tube. Currently patient is sedated. Review of systems could not be apparent from the patient Chest x-ray showed no acute cardiopulmonary process. 02/06/2018 Patient is currently intubated and sedated. Patient developed hypoxemic respiratory failure postoperatively likely due to ARDS. Patient has been afebrile. Otherwise still tachycardic. Metoprolol dose has been increased. Patient will be started on Lantus and insulin sliding scale. Will hold insulin drip Chest tube has been discontinued. Pulmonary and CT surgery is following. Urine culture is growing Klebsiella. Current medications reviewed. Active Medications Generic Name Dose Route Start Last Admin Trade Name Freq PRN Reason Stop Dose Admin Hydrocodone Bitart/Acetaminophen 2 each 02/01/18 10:47 02/03/18 18:25 [place] 5-325 PO 2 each Q4HR PRN Administration Severe Pain Hydrocodone Bitart/Acetaminophen 1 each 02/01/18 10:47 02/03/18 14:25 [place] 5-325 PO 1 each Q4HR PRN Administration Moderate Pain Albuterol/Ipratropium 3 ml 01/31/18 14:37 Duoneb 0.5 Mg-3 Mg/3 Ml Soln INHALATION RT-Q2H PRN Shortness Of Breath Or Wheezing Albuterol/Ipratropium 3 ml 02/03/18 12:00 02/06/18 23:58 Duoneb 0.5 Mg-3 Mg/3 Ml Soln INHALATION 3 ml RT-Q4H [facility] Administration Amlodipine Besylate 5 mg 02/04/18 12:00 02/06/18 11:52 Norvasc PO 5 mg DAILY@1200 [facility] Administration Artificial Tears 2 drops 01/31/18 21:00 02/06/18 23:49 Artificial Tear Drops BOTH EYES 2 drops Q4HR [facility] Administration Aspirin 325 mg 02/01/18 09:00 02/06/18 08:48 Aspirin PO 325 mg DAILY [facility] Administration Atorvastatin Calcium 40 mg 02/01/18 09:00 02/06/18 08:48 Lipitor PO 40 mg DAILY [facility] Administration Benzocaine/Menthol 1 each 01/31/18 14:37 Cepacol Lozenge MUCOUS MEM Q2H PRN Sore Throat Bisacodyl 10 mg 02/01/18 10:48 02/03/18 08:45 Dulcolax RECTAL 10 mg DAILY PRN Administration Constipation Budesonide 1 mg 02/02/18 20:00 02/06/18 19:58 Pulmicort INHALATION 1 mg RT-BID [facility] Administration Chlorhexidine Gluconate 15 ml 02/01/18 21:00 02/06/18 19:30 Peridex MUCOUS MEM 15 ml BID [facility] Administration Clopidogrel Bisulfate 75 mg 02/01/18 09:00 02/06/18 08:48 Plavix PO 75 mg DAILY [facility] Administration Formoterol Fumarate 20 mcg 11/05/18 20:00 02/06/18 19:59 Perforomist INHALATION 20 mcg RT-BID [facility] Administration Heparin Sodium (Porcine) 5,000 unit 01/31/18 18:50 02/06/18 23:50 Heparin SQ 5,000 unit Q8HR [facility] Administration Hydralazine HCl 20 mg 02/02/18 09:38 02/07/18 02:06 Apresoline IVP 20 mg Q4HR PRN Administration Blood Pressure - High Hydromorphone HCl 0.5 mg 02/03/18 23:13 02/04/18 14:16 Dilaudid IVP 0.5 mg Q2H PRN Administration Mild to Moderate Pain Hydromorphone HCl 1 mg 02/03/18 23:13 02/07/18 02:10 Dilaudid IVP 1 mg Q2H PRN Administration Moderate to Severe Pain Amiodarone HCl 150 mg/ 103 mls @ 618 mls/hr 01/31/18 14:37 Dextrose/Water IV .Q10M PRN Per protocol Protocol Amiodarone HCl 450 mg/ 259 mls @ 34.53 mls/hr 01/31/18 14:37 Dextrose/Water IV .Q7H31M PRN Per Protocol Protocol 1 MG/MIN Insulin Human Regular 100 unit 101 mls @ 0 mls/hr 01/31/18 15:15 02/06/18 15: 53 / Sodium Chloride IV 11 unit/hr .Q0M [facility] 11.11 mls/hr Administration Protocol Per Protocol Propofol 1,000 mg/ IV Solution 100 mls @ 0 mls/hr 01/31/18 14:37 02/07/18 02: 14 IV 60 mcg/kg/min .Q0M [facility] 38.52 mls/hr Administration Protocol Titrate Lactated Ringer's 1,000 mls @ 20 mls/hr 02/04/18 08:24 02/06/18 08:47 Lactated Ringers IV 20 mls/hr .Q24H [facility] Administration Clevidipine 25 mg/ IV Solution 50 mls @ 2 mls/hr 02/05/18 09:00 02/07/18 01: 05 IV 18 mg/hr .Q24H [facility] 36 mls/hr Administration Protocol 1 MG/HR Cisatracurium Besylate 200 mg/ 200 mls @ 6.37 mls/hr 02/05/18 09:45 02/06/18 00:03 Sodium Chloride IV 2 mcg/kg/min .Q24H [facility] 12.75 mls/hr Administration Protocol 1 MCG/KG/MIN Insulin Aspart 0 unit 02/06/18 20:00 02/07/18 00:12 Novolog SQ 2 unit Q4H [facility] Administration Protocol Insulin Detemir 10 unit 02/06/18 21:00 02/06/18 21:27 Levemir SQ 10 unit HS [facility] Administration Ketorolac Tromethamine 15 mg 02/04/18 12:00 02/07/18 00:10 Toradol IVP 02/09/18 12:01 15 mg Q6HR [facility] Administration Lisinopril 2.5 mg 02/06/18 09:00 02/06/18 19:29 Zestril PO 2.5 mg BID [facility] Administration Magnesium Hydroxide 2,400 mg 02/01/18 10:48 Milk Of Magnesia PO BID PRN Constipation Methylprednisolone Sodium Succinate 40 mg 02/06/18 21:00 02/06/18 19:30 Solu-Medrol IV 40 mg Q12HR [facility] Administration Metoclopramide HCl 10 mg 01/31/18 14:37 Reglan IVP Q4H PRN Nausea And Vomiting Metoprolol Tartrate 100 mg 02/06/18 21:00 02/06/18 19:29 Lopressor PO 100 mg BID [facility] Administration Miscellaneous Information 1 each 01/31/18 14:37 Magnesium Per Protocol MISCELLANE DAILY PRN Per Protocol Protocol Miscellaneous Information 1 each 01/31/18 14:37 Phosphorus Per Protocol MISCELLANE DAILY PRN Per Protocol Protocol Miscellaneous Information 1 each 01/31/18 14:37 Potassium Per Protocol MISCELLANE DAILY PRN Per Protocol Protocol Ondansetron HCl 4 mg 01/31/18 14:37 Zofran IVP Q6HR PRN Nausea And Vomiting Pantoprazole Sodium 40 mg 02/01/18 09:00 02/06/18 08:49 Protonix IVP 40 mg DAILY [facility] Administration Senna/Docusate Sodium 2 each 02/01/18 21:00 02/06/18 19:29 Senokot-S PO 2 each HS [facility] Administration Sodium Chloride 10 ml 01/31/18 21:00 02/06/18 19:24 Saline Flush IV Not Given BID [facility] Objective - Vital Signs Vital signs: Vital Signs Temp 99.1 F 02/06/18 20:00 Pulse 98 02/06/18 21:00 Resp 34 H 02/06/18 21:00 BP 145/71 02/06/18 21:00 Pulse Ox 90 L 02/06/18 21:00 Intake & Output 02/06/18 02/06/18 02/07/18 06:59 18:59 06:59 Intake Total 4837.967 3862.282 360.8 Output Total 1500 2400 580 Balance 360.818 -870.718 -219.2 Weight 107 kg 107 kg 107 kg Intake: IV 276 276 69 Lactated Ringers 1,000 ml 240 240 60 @ 20 mls/hr IV .Q24H [facility] Rx#:[id number] Pressure Bag 36 36 9 Intake, IV Titration 1317.818 696.282 138.8 Amount Cisatracurium 200 mg In 165.537 Sodium Chloride 0.9% 180 ml @ 1 MCG/KG/MIN 6.37 mls/hr IV .Q24H [facility] Rx#: [id number] Clevidipine Butyrate 25 431.9 252.5 38.8 mg In Empty Bag 1 bag @ 1 MG/HR 2 mls/hr IV .Q24H [facility] Rx#:[id number] Insulin Regular 100 unit 121.656 43.782 In Sodium Chloride 0.9% 100 ml @ Per Protocol IV .Q0M [facility] Rx#:[id number] Lactated Ringers 1,000 ml 40 @ 20 mls/hr IV .Q24H [facility] Rx#:[id number] Propofol 1,000 mg In 558.725 400 100 Empty Bag 1 bag @ Titrate IV .Q0M [facility] Rx#: [id number] Oral 50 Tube Feeding 217 527 153 Other 30 Output: Chest Tube Drainage 30 left pleural 30 Drainage 0 0 left forearm 0 0 Urine 1470 2400 580 Other: Voiding Method Indwelling Catheter Indwelling Catheter Indwelling Catheter # Bowel Movements 1 ABP, PAP, CO, CI - Last Documented Arterial Blood Pressure 138/70 Pulmonary Artery Pressure 36/26 Cardiac Output 6.4 Cardiac Index 2.9 - Exam GENERAL: Patient is mechanically ventilated and sedated. HEENT: Endotracheal tube and orogastric tube in place CARDIOVASCULAR: S1 and S2 present. No murmurs, rubs, or gallops. PULMONARY: Diminished breath sounds at the lower lung bases. No crackles or wheezes. ABDOMEN: Soft, nontender, nondistended, normoactive bowel sounds. No palpable organomegaly. EXTREMITIES: Mild cyanosis of the ear lobules. No edema. NEUROLOGICAL: Could not be assessed as he is sedated SKIN: No rashes. - Labs CBC & Chem 7: 02/06/18 04:40 02/06/18 04:40 Labs: Abnormal Lab Results - Last 24 Hours (Table) 02/05/18 02/06/18 02/06/18 Range/Units 23:07 01:26 03:35 WBC (3.8-10.6) k/uL RBC (4.30-5.90) m/uL Hgb (13.0-17.5) gm/dL Hct (39.0-53.0) % Neutrophils # (Manual) (1.3-7.7) k/uL Monocytes # (Manual) (0-1.0) k/uL Myelocytes # (Manual) (0) k/uL Nucleated RBCs (0-0) /100 WBC ABG pO2 (83-108) mmHg ABG HCO3 (21-25) mmol/L ABG Total CO2 (19-24) mmol/L ABG O2 Saturation (94-97) % Chloride (98-107) mmol/L BUN (9-20) mg/dL Glucose (74-99) mg/dL POC Glucose (mg/dL) 132 H 151 H 175 H (75-99) mg/dL Magnesium (1.6-2.3) mg/dL ALT (21-72) U/L Total Protein (6.3-8.2) g/dL Albumin (3.5-5.0) g/dL 02/06/18 02/06/18 02/06/18 Range/Units 04:40 04:40 04:51 WBC 33.2 H (3.8-10.6) k/uL RBC 3.85 L (4.30-5.90) m/uL Hgb 12.6 L (13.0-17.5) gm/dL Hct 37.4 L (39.0-53.0) % Neutrophils # (Manual) 25.20 H (1.3-7.7) k/uL Monocytes # (Manual) 2.32 H (0-1.0) k/uL Myelocytes # (Manual) 2.66 H (0) k/uL Nucleated RBCs 4 H (0-0) /100 WBC ABG pO2 (83-108) mmHg ABG HCO3 (21-25) mmol/L ABG Total CO2 (19-24) mmol/L ABG O2 Saturation (94-97) % Chloride 111 H (98-107) mmol/L BUN 46 H (9-20) mg/dL Glucose 165 H (74-99) mg/dL POC Glucose (mg/dL) 165 H (75-99) mg/dL Magnesium 3.0 H (1.6-2.3) mg/dL ALT 98 H (21-72) U/L Total Protein 6.1 L (6.3-8.2) g/dL Albumin 3.3 L (3.5-5.0) g/dL 02/06/18 02/06/18 02/06/18 Range/Units 05:37 06:47 09:19 WBC (3.8-10.6) k/uL RBC (4.30-5.90) m/uL Hgb (13.0-17.5) gm/dL Hct (39.0-53.0) % Neutrophils # (Manual) (1.3-7.7) k/uL Monocytes # (Manual) (0-1.0) k/uL Myelocytes # (Manual) (0) k/uL Nucleated RBCs (0-0) /100 WBC ABG pO2 73 L 76 L (83-108) mmHg ABG HCO3 27 H 28 H (21-25) mmol/L ABG Total CO2 28 H 29 H (19-24) mmol/L ABG O2 Saturation 93.9 L (94-97) % Chloride (98-107) mmol/L BUN (9-20) mg/dL Glucose (74-99) mg/dL POC Glucose (mg/dL) 129 H (75-99) mg/dL Magnesium (1.6-2.3) mg/dL ALT (21-72) U/L Total Protein (6.3-8.2) g/dL Albumin (3.5-5.0) g/dL 02/06/18 02/06/18 02/06/18 Range/Units 11:57 13:43 15:56 WBC (3.8-10.6) k/uL RBC (4.30-5.90) m/uL Hgb (13.0-17.5) gm/dL Hct (39.0-53.0) % Neutrophils # (Manual) (1.3-7.7) k/uL Monocytes # (Manual) (0-1.0) k/uL Myelocytes # (Manual) (0) k/uL Nucleated RBCs (0-0) /100 WBC ABG pO2 (83-108) mmHg ABG HCO3 (21-25) mmol/L ABG Total CO2 (19-24) mmol/L ABG O2 Saturation (94-97) % Chloride (98-107) mmol/L BUN (9-20) mg/dL Glucose (74-99) mg/dL POC Glucose (mg/dL) 155 H 176 H 173 H (75-99) mg/dL Magnesium (1.6-2.3) mg/dL ALT (21-72) U/L Total Protein (6.3-8.2) g/dL Albumin (3.5-5.0) g/dL 02/06/18 Range/Units 18:13 WBC (3.8-10.6) k/uL RBC (4.30-5.90) m/uL Hgb (13.0-17.5) gm/dL Hct (39.0-53.0) % Neutrophils # (Manual) (1.3-7.7) k/uL Monocytes # (Manual) (0-1.0) k/uL Myelocytes # (Manual) (0) k/uL Nucleated RBCs (0-0) /100 WBC ABG pO2 (83-108) mmHg ABG HCO3 (21-25) mmol/L ABG Total CO2 (19-24) mmol/L ABG O2 Saturation (94-97) % Chloride (98-107) mmol/L BUN (9-20) mg/dL Glucose (74-99) mg/dL POC Glucose (mg/dL) 144 H (75-99) mg/dL Magnesium (1.6-2.3) mg/dL ALT (21-72) U/L Total Protein (6.3-8.2) g/dL Albumin (3.5-5.0) g/dL Microbiology - Last 24 Hours (Table) 02/06/18 12:00 Urine Culture - Preliminary Urine,Catheterized Assessment and Plan Assessment: Status post two-vessel coronary artery bypass grafting - postop day 6 Acute hypoxic respiratory- likely due to ARDS Acute coronary syndrome/non-ST elevated PR Current smoker with a 26 pack years Hypertension Obesity Generalized anxiety DVT prophylaxis Plan: This is a pleasant 42 years old male who presents because of PR. Cardiology and Cardiothoracic surgery following the patient. Patient had CABG done on 2017. Postop patient has been placed on mechanical ventilation and he developed hypoxia likely due to ALD/ARDS. Pulmonary on board following the patient closely and making changes in his ventilator settings. Monitor lytes and vitals. DVT and GI prophylaxis. Further recommendations depending on the progress of the patient. Prognosis guarded. Time with Patient: Greater than 30
[2018-02-07 03:40] LABS: Glucose,Whole Blood 149 mg/dL (75-99)
[2018-02-07] MEDS: ARTIFICIAL TEARS-HYPROMELLOSE DROPS 15 ML BTL BOTH EYES SCH ×5 (03:59→20:35)
[2018-02-07] MEDS: IPRATROPIUM-ALBUTEROL 3 ML NEB INHALATION SCH ×5 (04:22→20:04)
[2018-02-07 04:40] LABS: HCT 38.8 % (39.0-53.0); HGB 12.7 gm/dL (13.0-17.5); MCH 31.5 pg (25.0-35.0); MCHC 32.6 g/dL (31.0-37.0); MCV 96.6 fL (80.0-100.0); Platelet Count 459 k/uL (150-450); RBC 4.02 m/uL (4.30-5.90); RDW 14.4 % (11.5-15.5)
[2018-02-07 04:49] LABS: ALT 75 U/L (21-72); AST 25 U/L (17-59); Albumin 3.2 g/dL (3.5-5.0); Alkaline Phosphatase 50 U/L (38-126); Anion Gap 8 mmol/L; Blood Urea Nitrogen 47 mg/dL (9-20); Calcium 8.8 mg/dL (8.4-10.2); Carbon Dioxide 25 mmol/L (22-30); Chloride 110 mmol/L (98-107); Glucose 161 mg/dL (74-99); Magnesium 2.9 mg/dL (1.6-2.3); Potassium 5.3 mmol/L (3.5-5.1); Sodium 143 mmol/L (137-145); Total Bilirubin 0.5 mg/dL (0.2-1.3); Total Protein 5.8 g/dL (6.3-8.2)
--- NOTE | 2018-02-07 05:12 | XR ---
EXAMINATION TYPE: XR chest 1V portable DATE OF EXAM: 02/07/2018 COMPARISON: Yesterday HISTORY: Cardiac surgery. TECHNIQUE: Single frontal view of the chest is obtained. FINDINGS: Endotracheal tube is almost 6 cm from the gretel. There is left-sided central venous pro ter with the tip in the superior vena cava. There are chest leads. There are sternal wires. There is blunting of left costophrenic angle. There is nasogastric tube with the tip over the left diaphragm. The location is not clear. There is been removal of the left side chest drain compared to yesterday. There is no heart failure. IMPRESSION: Small left pleural effusion increased compared to yesterday. Left chest tube has been re moved. No pneumothorax. No heart failure seen.
[2018-02-07 05:17] LABS: ABG Base Excess 3.1 mmol/L; ABG HCO3 28 mmol/L (21-25); ABG PCO2 44 mmHg (35-45); ABG PH 7.41 (7.35-7.45); ABG PO2 76 mmHg (83-108); ABG TCO2 29 mmol/L (19-24)
[2018-02-07 06:32] LABS: Band Neutrophils % 4 %; Metamyelocytes % 5 %; Neutrophils % (M) 76 %; Nucleated Red Blood Cells 2 /100 WBC (0-0); Total Cells Counted 200
[2018-02-07 06:33] LABS: Metamyelocytes # (M) 1.67 k/uL (0); Monocytes # (M) 1.33 k/uL (0-1.0); WBC 33.3 k/uL (3.8-10.6)
[2018-02-07] MEDS: BUDESONIDE 1 MG/2 ML NEBU INHALATION SCH ×2 (07:26→20:04)
[2018-02-07] MEDS: FORMOTEROL FUMARATE 20 MCG/2 ML NEBU INHALATION SCH ×2 (07:26→20:04)
[2018-02-07] MEDS: CISATRACURIUM 200 MG in SODIUM CHLORIDE 0.9% 180 ML IV SCH (07:55)
[2018-02-07] MEDS: LACTATED RINGERS 1,000 ML IV SCH (07:56)
[2018-02-07 08:25] LABS: Glucose,Whole Blood 114 mg/dL (75-99)
--- NOTE | 2018-02-07 08:39 | XR ---
EXAMINATION TYPE: XR chest 1V portable DATE OF EXAM: 02/07/2018 HISTORY: assess Dobbhoff placement after advancement. REFERENCE: Previous study dated 02/07/2018. FINDINGS: There has been a midline sternotomy. The patient is intubated. ET tube is unchanged in appe arance. A Dobbhoff tube is in place. Its tip is in the distal esophagus there is a left basilic PICC line in place. Its tip is in the superior vena cava. There is left basilar airspace disease. There is a small left effusion. This has improved from yeste rday. The right lung is clear. The heart is not enlarged. IMPRESSION: 1. MALPLACEMENT OF THE PATIENT'S DOBBHOFF TUBE. 2. IMPROVED AERATION, LEFT LUNG BASE. 3. SMALL LEFT EFFUSION.
[2018-02-07] MEDS: CHLORHEXIDINE GLUCONATE 15 ML CUP MUCOUS MEM SCH ×2 (09:03→20:37)
[2018-02-07] MEDS: CLOPIDOGREL 75 MG TAB PO SCH (09:03)
[2018-02-07] MEDS: HEPARIN SODIUM,PORCINE 5,000 UNIT/ML 1 ML VIAL SQ SCH ×2 (09:03→16:53)
[2018-02-07] MEDS: methylPREDNISolone SOD SUCCI 40 MG/ML 1 ML VIAL IV SCH (09:03)
[2018-02-07] MEDS: ATORVASTATIN 40 MG TAB PO SCH (09:03)
[2018-02-07] MEDS: ASPIRIN 325 MG TAB PO SCH (09:03)
[2018-02-07] MEDS: PANTOPRAZOLE 40 MG/10 ML VIAL IVP SCH (09:03)
[2018-02-07] MEDS: METOPROLOL TARTRATE 50 MG TAB PO SCH ×2 (09:04→21:04)
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
[2018-02-07] MEDS: LISINOPRIL 2.5 MG TAB PO SCH ×2 (09:43→21:04)
--- NOTE | 2018-02-07 10:47 | P.PN ---
Subjective Progress Note Date: 02/07/18 Principal diagnosis: Status post off-pump 2 vessel bypass grafting Progress note dated 02/02/2018 42-year-old male postop day #2, status post off-pump two-vessel bypass grafting. Unfortunately, the patient has profound postoperative hypoxemic respiratory failure and likely has acute respiratory distress syndrome, although the etiology of ARDS is unclear given the fact that the patient wasn't off-pump bypass. He also has a history of recent acute non-ST segment elevation myocardial infarction, hypertension, chronic tobacco dependence and underlying COPD, obesity, and generalized anxiety disorder. Currently, the patient remains on the volume assist control mode. His current settings include a rate of 34, tidal volume 400, FiO2 on percent, and PEEP of 18. His arterial blood gases show a PaO2 of 60 to a PaCO2 of 48 and a pH of 7.32. Prior blood gases on volume assist control mode of 32 tidal volume 420 FiO2 100 % PEEP of 16 show a PaO2 of 80 to a PaCO2 of 61 and a pH of 7.16. The patient was admitted to the hospital on January 29 and had surgery on January 31. Currently, the patient's on Primacor at 0.1 mics per kilogram per minute, Cardizem drip at 10 mg an hour, Cleveprex which is currently on hold, fentanyl at 50 mcg/h, Nimbex at 1 britt per kilogram per minute, insulin drip at 10.5 units an hour and propofol 65 mcg/kg/m. The patient's chest x-ray shows typical post op changes with some left lower lobe atelectasis and infiltrate. Also, the endotracheal tube should be pushed down 1.5 cm. Also, a feeding tube was placed by thoracic surgery. Progress note dated 02/03/2018 42-year-old male, postop day #3, status post off-pump two-vessel bypass grafting. He developed profound postoperative hypoxemic respiratory failure with presumed acute respiratory distress syndrome. The etiology of the acute respiratory distress syndrome is not clear. He also has a recent history of acute non-ST segment elevation myocardial infarction, hypertension, chronic tobacco dependence, and underlying COPD. In addition, he has obesity and generalized anxiety disorder. He currently remains on the ventilator. He is on the volume assist control mode rate of 34, tidal volume 400, FiO2 70% to be dropped to 60%, and a PEEP of 8. Blood gases show a PaO2 of 87 a PaCO2 51 and a pH is 7.3. This is consistent with a very mild respiratory acidosis. Currently, his chest x-ray looks pretty good. He is receiving vital high protein at 20 with a goal of 20. In addition, he is on Nimbex at 1 britt per kilogram per minute, to be placed on hold, lactated Ringer's at 50 mL an hour, propofol at 50 mics per kilogram per minute, fentanyl 50 mcg/h, and insulin at 9.5 units per hour. Yesterday, the patient's FiO2 was 100%. He has made progress overnight. Microbiology is negative currently. Yesterday, thoracic surgery placed a feeding tube. Progress note dated 02/04/2018 42-year-old male, postop day #4, status post TWO-VESSEL BYPASS GRAFTING. UNFORTUNATELY, THE PATIENT DEVELOPED PROFOUND HYPOXEMIC RESPIRATORY FAILURE POST SURGICALLY. HE'S LIKELY DEVELOPED ACUTE RESPIRATORY DISTRESS SYNDROME ALTHOUGH THE ETIOLOGY OF THE ACUTE RESPIRATORY DISTRESS SYNDROME IN THIS PATIENT IS NOT CLEAR. THERE IS NO OBVIOUS INFECTION AND HE WAS NOT ON CARDIO PULMONARY BYPASS. THE PATIENT WAS ADMITTED WITH A DIAGNOSIS OF ACUTE NON-ST SEGMENT ELEVATION MYOCARDIAL INFARCTION, BENIGN ESSENTIAL HYPERTENSION, CHRONIC TOBACCO DEPENDENCE, AND COPD. HE ALSO SUFFERS FROM GENERALIZED ANXIETY DISORDER. CURRENTLY, HE REMAINS ON THE VOLUME ASSIST CONTROL MODE WITH A RATE OF 34, TIDAL VOLUME IS 400, FIO2 50%, AND PEEP OF 15. On THOSE SAME SETTINGS WITH A PEEP OF 18, HIS PO2 WAS 83, PACO2 WAS 42 AND HIS PH WAS 7.42. The PATIENT IS CURRENTLY ON PROPOFOL AT 70 MICS PER KILOGRAM PER MINUTE, LACTATED RINGER'S AT 20 ML AN HOUR, INSULIN DRIP AT 12 UNITS AN HOUR AND VITAL HIGH PROTEIN AT 31 WITH A GOAL OF 31 ML AN HOUR. WE ARE GOING TO REPEAT A BLOOD GAS AT 10 AM. THE PATIENT CHANGES MADE ABOUT 7 AM. IF EVERYTHING LOOKS GOOD, WE' LL MAKE ANOTHER PEEP CHANGE. HIS CHEST X-RAY IS ALMOST LOOKED PRETTY GOOD AND IT LOOKS CLEAN AGAIN TODAY. Progress note dated 02/05/2018 42-year-old male, postop day 5, status post two-vessel bypass grafting. The patient unfortunately developed profound hypoxemic respiratory failure in the postoperative phase. He likely developed acute respiratory distress syndrome although the etiology of this is unclear. The patient initially was on 100% and 18 of PEEP. Remember to wean him down now. Currently, his vent settings include the volume assist control mode, rate 34, tidal volume 400, FiO2 50% and PEEP of 10. On those settings, his blood gases show a PaO2 of 68, PaCO2 36 and a pH 7.50. The blood gases are consistent with a combined respiratory and mild metabolic alkalosis. The patient's fluids included lactated Ringer's at 20 mL an hour, propofol 70 mics per kilogram per minute and vital high protein at 31 with a goal of 31 mL an hour. The patient does have Klebsiella in his urine and that's being covered. His chest x-ray show some postoperative changes, a small left pleural effusion and basilar atelectasis. Overall, his condition has improved. Today, we will hold his sedation and do a spontaneous breathing trial on PSV 10 CPAP of 5. He may or may not be ready for extubation. In addition to the above, he has a history of acute non-ST segment elevation myocardial infarction, hypertension, chronic tobacco dependence and underlying COPD. Progress note dated 02/06/2018 42-year-old male, postop day #6, status post off-pump two-vessel bypass grafting. Unfortunately, the patient developed profound hypoxemic respiratory failure in the immediate postoperative phase. He likely has acute respiratory distress syndrome although its etiology is unclear. The patient was initially on 100% and 18 of PEEP. He been able to wean that down. Currently, the patient is on the VC plus mode, rate of 34, tidal volume 450, FiO2 50% and PEEP of 13. The blood gases show a PaO2 of 73 PaCO2 of 43 and a pH of 7.41. The patient's chest x-ray shows some mild bilateral infiltrates. She is currently on lactated Ringer's at 20 mL an hour, vital high protein at 31 with a goal of 31 mL an hour, Nimbex at 2 mics per kilogram per minute, Cleveprex at 21 mg an hour, propofol at 75 mics per kilogram per minute, and insulin at 9 units per hour. The patient's situation is very dire. He is very critically O. His prognosis is very guarded. The nurse gave him a sedation holiday off the paralytic but apparently he became dyssynchronous with the ventilator and we had to re-paralyze him. Microbiology shows evidence of Klebsiella in the urine. This is currently being treated. Progress note dated 02/07/2018 32 year old male, postop day #7, status post off pump two-vessel bypass grafting. Unfortunately, the patient developed profound hypoxemic respiratory failure and probable ARDS. The etiology is unclear. He remains on the mechanical ventilator. He is in the VC plus mode with a targeted tidal volume 450, and inspiratory time of 1 second, a rate of 34, FiO2 50%, and a PEEP of 13. The patient's blood gases show a PaO2 of 76, a PaCO2 44 and a pH of 7.40. The urine is positive for Klebsiella and that's being treated. Chest x-ray shows a small left-sided pleural effusion. We'll hold the Nimbex and see if we can keep him off the paralytic. He is on lactated Ringer's at 20 mL an hour , propofol at 50 mics per kilogram per minute and Cleveprex at 4 mg an hour. In addition, because we don't have a good explanation for his hypoxemia, sent for CT angiogram to rule out pulmonary embolism. The patient's hemodynamic status has been very labile. This morning he was very hypotensive. Now he is hypertensive requiring Cleveprex her blood pressure control. This has been his pattern all along. Objective - Vital Signs Vital signs: Vital Signs Temp 98.0 F 02/07/18 08:00 Pulse 99 02/07/18 09:00 Resp 34 H 02/07/18 09:00 BP 145/71 02/07/18 05:00 Pulse Ox 100 02/07/18 09:00 Intake & Output 02/06/18 02/07/18 02/07/18 18:59 06:59 18:59 Intake Total 0756.647 6758.319 224.797 Output Total 2400 2075 160 Balance -670.718 -654.681 64.797 Weight 107 kg 106 kg Intake: IV 276 276 69 Lactated Ringers 1,000 ml 240 240 60 @ 20 mls/hr IV .Q24H NICHOLAS Rx#:[id number] Pressure Bag 36 36 9 Intake, IV Titration 896.282 652.319 125.797 Amount Cisatracurium 200 mg In 200 Sodium Chloride 0.9% 180 ml @ 1 MCG/KG/MIN 6.37 mls/hr IV .Q24H NICHOLAS Rx#: [id number] Clevidipine Butyrate 25 252.5 198.4 9.867 mg In Empty Bag 1 bag @ 1 MG/HR 2 mls/hr IV .Q24H NICHOLAS Rx#:[id number] Insulin Regular 100 unit 43.782 In Sodium Chloride 0.9% 100 ml @ Per Protocol IV .Q0M NICHOLAS Rx#:[id number] Lactated Ringers 1,000 ml 20 @ 20 mls/hr IV .Q24H NICHOLAS Rx#:[id number] Propofol 1,000 mg In 400 453.919 95.930 Empty Bag 1 bag @ Titrate IV .Q0M NICHOLAS Rx#: [id number] Tube Feeding 527 462 0 Other 30 30 30 Output: Drainage 0 left forearm 0 Urine 2400 2075 160 Other: Voiding Method Indwelling Catheter Indwelling Catheter # Bowel Movements 1 ABP, PAP, CO, CI - Last Documented Arterial Blood Pressure 134/78 Pulmonary Artery Pressure 36/26 Cardiac Output 6.4 Cardiac Index 2.9 - Exam No acute distress, sedated and paralyzed, with an orally placed endotracheal tube and a Dobbhoff tube. HEENT examination is grossly unremarkable. Mucous membranes are moist. Neck supple. Full range of motion. No adenopathy thyromegaly or neck vein distention. Cardiovascular examination reveals regular rhythm rate. S1-S2 normal. No S3 or S4. No discernible murmur noted. Heart sounds are distant. Lungs reveal equal but diminished breath sounds throughout. There are a few scattered rhonchi and crackles. No wheezes. Abdomen soft and bowel sounds are heard. No masses or tenderness. Extremities are intact. No cyanosis clubbing or edema. Skin is without rash or lesion. Neurologic examination is cannot be adequately assessed because of sedation. - Labs CBC & Chem 7: 02/07/18 04:15 02/07/18 04:15 Labs: Abnormal Lab Results - Last 24 Hours (Table) 02/06/18 02/06/18 02/06/18 Range/Units 11:57 13:43 15:56 WBC (3.8-10.6) k/uL RBC (4.30-5.90) m/uL Hgb (13.0-17.5) gm/dL Hct (39.0-53.0) % Plt Count (150-450) k/uL Neutrophils # (Manual) (1.3-7.7) k/uL Monocytes # (Manual) (0-1.0) k/uL Metamyelocytes # (Man) (0) k/uL Nucleated RBCs (0-0) /100 WBC ABG pO2 (83-108) mmHg ABG HCO3 (21-25) mmol/L ABG Total CO2 (19-24) mmol/L Potassium (3.5-5.1) mmol/L Chloride (98-107) mmol/L BUN (9-20) mg/dL Glucose (74-99) mg/dL POC Glucose (mg/dL) 155 H 176 H 173 H (75-99) mg/dL Magnesium (1.6-2.3) mg/dL ALT (21-72) U/L Total Protein (6.3-8.2) g/dL Albumin (3.5-5.0) g/dL 02/06/18 02/06/18 02/07/18 Range/Units 18:13 23:36 03:28 WBC (3.8-10.6) k/uL RBC (4.30-5.90) m/uL Hgb (13.0-17.5) gm/dL Hct (39.0-53.0) % Plt Count (150-450) k/uL Neutrophils # (Manual) (1.3-7.7) k/uL Monocytes # (Manual) (0-1.0) k/uL Metamyelocytes # (Man) (0) k/uL Nucleated RBCs (0-0) /100 WBC ABG pO2 (83-108) mmHg ABG HCO3 (21-25) mmol/L ABG Total CO2 (19-24) mmol/L Potassium (3.5-5.1) mmol/L Chloride (98-107) mmol/L BUN (9-20) mg/dL Glucose (74-99) mg/dL POC Glucose (mg/dL) 144 H 155 H 149 H (75-99) mg/dL Magnesium (1.6-2.3) mg/dL ALT (21-72) U/L Total Protein (6.3-8.2) g/dL Albumin (3.5-5.0) g/dL 02/07/18 02/07/18 02/07/18 Range/Units 04:15 04:15 05:12 WBC 33.3 H (3.8-10.6) k/uL RBC 4.02 L (4.30-5.90) m/uL Hgb 12.7 L (13.0-17.5) gm/dL Hct 38.8 L (39.0-53.0) % Plt Count 459 H (150-450) k/uL Neutrophils # (Manual) 26.60 H (1.3-7.7) k/uL Monocytes # (Manual) 1.33 H (0-1.0) k/uL Metamyelocytes # (Man) 1.67 H (0) k/uL Nucleated RBCs 2 H (0-0) /100 WBC ABG pO2 76 L (83-108) mmHg ABG HCO3 28 H (21-25) mmol/L ABG Total CO2 29 H (19-24) mmol/L Potassium 5.3 H (3.5-5.1) mmol/L Chloride 110 H (98-107) mmol/L BUN 47 H (9-20) mg/dL Glucose 161 H (74-99) mg/dL POC Glucose (mg/dL) (75-99) mg/dL Magnesium 2.9 H (1.6-2.3) mg/dL ALT 75 H (21-72) U/L Total Protein 5.8 L (6.3-8.2) g/dL Albumin 3.2 L (3.5-5.0) g/dL 02/07/18 Range/Units 08:14 WBC (3.8-10.6) k/uL RBC (4.30-5.90) m/uL Hgb (13.0-17.5) gm/dL Hct (39.0-53.0) % Plt Count (150-450) k/uL Neutrophils # (Manual) (1.3-7.7) k/uL Monocytes # (Manual) (0-1.0) k/uL Metamyelocytes # (Man) (0) k/uL Nucleated RBCs (0-0) /100 WBC ABG pO2 (83-108) mmHg ABG HCO3 (21-25) mmol/L ABG Total CO2 (19-24) mmol/L Potassium (3.5-5.1) mmol/L Chloride (98-107) mmol/L BUN (9-20) mg/dL Glucose (74-99) mg/dL POC Glucose (mg/dL) 114 H (75-99) mg/dL Magnesium (1.6-2.3) mg/dL ALT (21-72) U/L Total Protein (6.3-8.2) g/dL Albumin (3.5-5.0) g/dL Microbiology - Last 24 Hours (Table) 02/06/18 22:05 Gram Stain - Preliminary Sputum 02/06/18 12:00 Urine Culture - Preliminary Urine,Catheterized Assessment and Plan Assessment: Assessment Postop day #7, status post off-pump 2 vessel bypass grafting Postoperative mechanical ventilatory support Postoperative hypoxemic respiratory failure, likely secondary to acute respiratory distress syndrome (ARDS). Recent acute non-ST segment elevation myocardial infarction History of hypertension Chronic tobacco dependence and underlying COPD Obesity History of generalized anxiety disorder Profound hemodynamic instability Plan: Plan dated 02/02/2018 Current blood gases are adequate. There will be no PEEP changes at this time. The first thing to be reduced to be the FiO2. The patient is not ready for weaning obviously given his unstable respiratory and cardiovascular status. Tube feeds should be started as soon as possible. A Dobbhoff feeding tube was placed by thoracic surgery. The patient should not receive any bicarbonate at this time. Urine culture showed evidence of Klebsiella pneumoniae. We'll check to make sure the patient's on adequate antibiotics. The rest of his medications were reviewed. Medications are currently reviewed. White count is 34, hemoglobin 13.5, hematocrit 40.4, and platelet count 267,000. Sodium 141 potassium 4.3 chloride is 106 CO2 is 20. BUN and creatinine are 15 and 1.21. Anion gap is 15. Overall prognosis remains guarded. The patient will likely require long-term mechanical ventilatory support. Again, the goal would be a low tidal volume high PEEP strategy. Additional recommendations and suggestions are forthcoming. Medications labs are reviewed. Critical care time 37 minutes Plan dated 02/03/2018 Today we will hold the patient's paralytic. We'll see if we can manage him without it. We'll continue to drop the FiO2. It was a drop down to 60%. Hopefully, later today or tomorrow drop down to 50% at which time we can begin to start to make PEEP changes. Currently he is on a PEEP of 18. He is receiving nourishment. A Dobbhoff to was placed by thoracic surgery. His chest x-ray looks relatively stable. White count is 28.2, hemoglobin 10.8, hematocrit 33.5, and platelet count 264,000. Sodium 140, potassium 4.8, chlorides 108, CO2 25, anion gap is normal, BUN 31, and creatinine is 1.58. We will continue with mechanical ventilatory support and best supportive care. Prognosis is guarded. The patient's on appropriate medications which have been reviewed. Microbiologic studies thus far are negative. Critical care time 35 minutes Plan dated 02/04/2018 The patient's currently off the fentanyl drip and the paralytic. The patient remains on propofol 70 mics per kilogram per minute. The lactated Ringer's will be decreased to 20 mL an hour. The patient remains on an insulin drip at 12 units an hour. He is being nourished. A repeat arterial blood gas will be done at 10 AM. If it looks good, I will likely make another PEEP change. Urine was positive for Klebsiella and is on appropriate antibiotic. White count is 25.6, hemoglobin 10.5, hematocrit 31.4 and platelet count 318,000. Sodium and potassium are normal. Chlorides 108, CO2 27, anion gap is normal, and BUN is 39 with a creatinine of 1.17. The patient's overall prognosis remains guarded. We'll continue to follow him very closely. His respiratory status is certainly a concern. Hopefully blood gases at 10 would be excellent and we'll be able to make another PEEP change. Critical care time 36 minutes Plan dated 02/05/2018 Currently, the patient is doing reasonably well. His oxygenation has improved and would be able to wean his PEEP down to 10 from 18 and also reduce his FiO2 from on percent to 50%. Chest x-ray shows some changes at the left base. His urine is positive for Klebsiella and S2 being covered. Today, we will do a daily interruption of sedation with a spontaneous breathing trial on a PSV of 10 and CPAP of 5. We will continue with nourishment with the vital high protein. He is also on lactated Ringer's at 20 mL an hour. White count is 27.4 , hemoglobin 10.9, hematocrit 33.4 and platelet count 362,000. Sodium is 141 potassium 4.8 chlorides 109 CO2 25 anion gap is normal at 7 BUN 50 creatinine 1.17. Medications are reviewed. Everything seems appropriate. We'll continue to follow. Prognosis is guarded. Critical care time 34 minutes Plan dated 02/06/2018 Currently, the patient needed to be re-paralyzed. He was dyssynchronous with the ventilator when paralysis was stopped. The patient's chest x-rays reviewed. Labs and medications are reviewed. Remains on the ventilator in the VC plus modality. He remains on Cleveprex propofol and Nimbex. He is receiving nutrition. White blood count is 33.2, hemoglobin 12.6, hematocrit 37.4 and platelet count 413,000. Sodium 142 potassium 5.1 chlorides 111 CO2 22 anion gap 9 BUN 46 and creatinine 0.93. Medications are reviewed. X-rays and labs are all reviewed. I will repeat a blood gas. I'll also make sure the patient is recultured. Blood gas was a PaO2 of 76, a PaCO2 of 42 and a pH is 7.434. I will ask the nurse Christina, to recultured the patient's blood urine and sputum. Additional recommendations and suggestions are forthcoming. Critical care time 36 minutes Plan dated 02/07/2018 The patient is receiving nutrition. He is at goal. He is being treated for the Klebsiella in his urine. We'll go to stop the steroids. He remains on lactated Ringer's, propofol, and Cleveprex. We will set up for a CT angiogram of the chest to rule out pulmonary embolism. His ventilator settings are stable and his blood gases are reasonable. We previously tried to stop his paralytic and sedation and put him on some pressure support and CPAP but he did not do well. Additional recommendations and suggestions are forthcoming. Prognosis is guarded. White blood count is 33.3, hemoglobin 12.7, hematocrit 38.8 and platelet count 459,000. Sodium 143, potassium 5.3, chloride is 110 and CO2 25. Anion gap is normal. BUN is 47 with a creatinine of 0.96. The patient will have a CT angiogram the chest later this morning or early this afternoon to rule out pulmonary embolism. Prognosis is guarded. Critical care time 37 minutes Time with Patient: Greater than 30
[2018-02-07] MEDS: amLODIPine 5 MG TAB PO SCH (12:33)
[2018-02-07 12:38] LABS: Glucose,Whole Blood 111 mg/dL (75-99)
--- NOTE | 2018-02-07 14:31 | CT ---
EXAMINATION TYPE: CT chest angio for PE DATE OF EXAM: 02/07/2018 COMPARISON: NONE HISTORY: Dyspnea CT DLP: 623 mGycm. Automated Exposure Control for Dose Reduction was Utilized. CONTRAST: CTA scan of the thorax is performed with IV Contrast, patient injected with 100 mL of Isovue 370, pul monary embolism protocol. MIP Images are created on CT scanner and reviewed. FINDINGS: Motion artifact is present which degrades the images. Timing of the contrast bolus is also suboptimal with limited opacification of the subsegmental pulmonary arteries. LUNGS: Small bilateral pleural effusions are present. Left lower lung atelectasis is present with lef tward shift of the mediastinum. There is abrupt cut off of the supplying left posterior subsegmental bronchus. No concerning lung nodules. Subsegmental atelectasis is seen scattered throughout the right lung. MEDIASTINUM: An endotracheal tube is properly positioned. Sternotomy wires are evident. Gastric decom pression tube is seen coiled within the gastric lumen. No central or segmental pulmonary emboli. Eval uation of subsegmental pulmonary emboli is limited secondary to timing of the contrast bolus. There a re no greater than 1 cm hilar or mediastinal lymph nodes. No cardiomegaly or pericardial effusion i s seen. OTHER: No additional significant abnormality is seen. Limited evaluation of the upper abdomen is unr emarkable. IMPRESSION: 1. No central or segmental pulmonary emboli. Evaluation of subsegmental pulmonary emboli remains equi vocal secondary to timing of the contrast bolus. 2. Suspected mucous plug involving in the segmental posterior left lower lobe bronchus with resultant atelectasis of the left lower lung. 3. Trace bilateral pleural effusions. 4. Appropriately positioned endotracheal and enteric tube. 5. Postsurgical changes of the mediastinum
[2018-02-07] MEDS: MAGNESIUM HYDROXIDE 2,400 MG/10 ML CUP PO PRN (14:49)
[2018-02-07 16:44] LABS: Glucose,Whole Blood 159 mg/dL (75-99)
[2018-02-07 20:24] LABS: Glucose,Whole Blood 114 mg/dL (75-99)
[2018-02-07] MEDS: SENNOSIDES-DOCUSATE SODIUM 1 EACH TAB PO SCH (20:37)
[2018-02-07] MEDS: INSULIN DETEMIR 100 UNIT/ML 10 ML VIAL SQ SCH (20:42)
[2018-02-07 20:50] LABS: ABG Base Excess 4.9 mmol/L; ABG HCO3 29 mmol/L (21-25); ABG PCO2 42 mmHg (35-45); ABG PH 7.45 (7.35-7.45); ABG PO2 97 mmHg (83-108); ABG TCO2 30 mmol/L (19-24)
[2018-02-07 20:54] LABS: ABG Oxygen Saturation 97.9 % (94-97)
[2018-02-07] MEDS ORDERED: ALBUMIN HUMAN 25% 50 ML in EMPTY BAG 1 BAG IVPB ONE (21:00)
--- NOTE | 2018-02-07 21:31 | PN ---
PROGRESS NOTE DATE OF SERVICE: 02/07/2018. HISTORY: This 42-year-old gentleman who was admitted after 2-vessel CABG, is on mechanical ventilation still. The patient had features of ARDS. The most recent CT scan showed suspicious mucus plugging. There is no evidence of pulmonary embolism. Dr. Castro is planning bronchoscopy at this time. The patient is mechanically ventilated. Blood pressure is well controlled at this time. PAST MEDICAL HISTORY: Reviewed. REVIEW OF SYSTEMS: Could not be taken because the patient is mechanically ventilated and sedated. CURRENT MEDICATIONS: Reviewed, include: 1. [place] 5 mg every 6 hours p.r.n. 2. DuoNeb q.i.d. and p.r.n. 3. Amiodarone drip. 4. Norvasc. 5. Aspirin 325 mg daily. 6. Lipitor 40 mg daily. 7. Pulmicort b.i.d. 9. Plavix 75 mg. 10.Dextrose. 11.Heparin 5000 units subcutaneous q.i.d. 13.Dilaudid. 14.Levemir. 15.Zestril. 16.Reglan. 17.Lopressor. 18.Zofran. 19.Protonix. 20.P.r.n. medications. PHYSICAL EXAM: Patient is mechanically sedated. Pulse is 85, blood pressure 143/70, respiration 26, temperature 98.2, pulse ox 96% on room air. Mechanical ventilation settings are noted. HEENT: Oral mucosa is moist. NECK: No jugular venous distention. No lymph node palpable. CARDIOVASCULAR: S1 and S2 muffled. LUNGS: Breath sounds diminished in the bases. Bilateral scattered rhonchi and crackles. ABDOMEN: Soft, obese. LEGS: No edema. No swelling. NERVOUS SYSTEM: The patient is mechanically sedated. LABS: WBC 33.2, hemoglobin 12.7, sodium 143, potassium 57. Glucose noted. ASSESSMENT: 1. Coronary artery disease, status post 2-vessel coronary disease and coronary artery bypass grafting. 2. Acute hypoxic respiratory failure, on mechanical ventilation, possibly secondary to acute respiratory distress syndrome. 3. Possible mucus plugging. 4. Acute coronary syndrome with ST-elevation myocardial infarction. 5. History of nicotine dependence. 6. Hypertension. 7. Obesity. 8. Generalized anxiety. 9. Increased random blood sugar. 10.Increased WBC with neutrophilia. 11.History of hypertension. 12.History of coronary artery disease with stent. 13.History of anxiety. 14.History of nicotine dependence. 15.FULL CODE. RECOMMENDATIONS: This 42-year-old gentleman presented with multiple complex medical issues. We will monitor the patient closely. Continue the current management and symptomatic treatment. Continue bronchodilators. Follow closely with Cardiology and Pulmonology as well. Possible bronchoscopy. DVT prophylaxis. Guarded prognosis because of multiple complex medical issues. Further recommendations to follow. MMSELENEL / IJN: [id number] / MITALI
[2018-02-08] MEDS: CISATRACURIUM 200 MG in SODIUM CHLORIDE 0.9% 180 ML IV SCH ×2 (00:02→12:34)
[2018-02-08] MEDS: HEPARIN SODIUM,PORCINE 5,000 UNIT/ML 1 ML VIAL SQ SCH ×3 (00:03→16:24)
[2018-02-08 00:06] LABS: Glucose,Whole Blood 115 mg/dL (75-99)
[2018-02-08] MEDS: ARTIFICIAL TEARS-HYPROMELLOSE DROPS 15 ML BTL BOTH EYES SCH ×6 (00:06→20:14)
[2018-02-08] MEDS: INSULIN ASPART 100 UNIT/ML 1 ML 10 ML VIAL SQ SCH ×6 (00:07→20:13)
[2018-02-08] MEDS: IPRATROPIUM-ALBUTEROL 3 ML NEB INHALATION SCH ×7 (01:15→20:01)
[2018-02-08] MEDS: HYDROmorphone 1 MG/ML 1 ML SYRINGE IVP PRN ×4 (02:15→14:27)
[2018-02-08] MEDS ORDERED: ALBUMIN HUMAN 5% 250 ML in EMPTY BAG 1 BAG IVPB STA (04:11)
[2018-02-08 04:17] LABS: Glucose,Whole Blood 107 mg/dL (75-99)
[2018-02-08 04:35] LABS: Basophils # (A) 0.2 k/uL (0-0.2); Basophils % (A) 1 %; Eosinophils # (A) 1.1 k/uL (0-0.7); Eosinophils % (A) 4 %; HCT 33.4 % (39.0-53.0); HGB 10.8 gm/dL (13.0-17.5); Lymphocytes # (A) 4.4 k/uL (1.0-4.8); Lymphocytes % (A) 16 %; MCH 31.2 pg (25.0-35.0); MCHC 32.2 g/dL (31.0-37.0); MCV 96.8 fL (80.0-100.0); Mean Platelet Volume 6.6; Monocytes # (A) 1.3 k/uL (0-1.0); Monocytes % (A) 5 %; Neutrophils # (A) 20.8 k/uL (1.3-7.7); Neutrophils % (A) 74 %; Platelet Count 416 k/uL (150-450); RBC 3.45 m/uL (4.30-5.90); RDW 14.5 % (11.5-15.5)
[2018-02-08 04:49] LABS: ALT 59 U/L (21-72); AST 21 U/L (17-59); Albumin 2.9 g/dL (3.5-5.0); Alkaline Phosphatase 35 U/L (38-126); Anion Gap 5 mmol/L; Blood Urea Nitrogen 61 mg/dL (9-20); Calcium 8.6 mg/dL (8.4-10.2); Carbon Dioxide 26 mmol/L (22-30); Chloride 111 mmol/L (98-107); Glucose 102 mg/dL (74-99); Magnesium 3.2 mg/dL (1.6-2.3); Potassium 4.8 mmol/L (3.5-5.1); Sodium 142 mmol/L (137-145); Total Bilirubin 0.4 mg/dL (0.2-1.3); Total Protein 5.2 g/dL (6.3-8.2)
[2018-02-08] MEDS: PROPOFOL 1,000 MG in EMPTY BAG 1 BAG IV SCH ×5 (05:18→19:58)
[2018-02-08 05:58] LABS: ABG PCO2 38 mmHg (35-45); ABG PH 7.45 (7.35-7.45)
[2018-02-08 05:59] LABS: ABG HCO3 27 mmol/L (21-25); ABG PO2 102 mmHg (83-108)
[2018-02-08] MEDS: CLEVIDIPINE BUTYRATE 25 MG in EMPTY BAG 1 BAG IV SCH ×3 (06:19→14:28)
[2018-02-08] MEDS: METOPROLOL TARTRATE 50 MG TAB PO SCH ×2 (06:38→20:14)
--- NOTE | 2018-02-08 06:48 | XR ---
EXAMINATION TYPE: XR chest 1V portable DATE OF EXAM: 02/08/2018 HISTORY: post cardiac surgery. REFERENCE: Previous study dated 02/07/[address] scan of the chest dated 02/07/2018. FINDINGS: There has been a midline sternotomy. The patient is ET tube and Dobbhoff tube remain in place, unchanged in appearance. There is left basi lar airspace disease. There is an enlarging left-sided effusion. The right lung is clear. IMPRESSION: 1. LEFT BASILAR AIRSPACE DISEASE. 2. SMALL LEFT EFFUSION.
[2018-02-08] MEDS: FORMOTEROL FUMARATE 20 MCG/2 ML NEBU INHALATION SCH ×2 (07:52→20:01)
[2018-02-08] MEDS: BUDESONIDE 1 MG/2 ML NEBU INHALATION SCH ×2 (07:52→20:00)
[2018-02-08] MEDS: CHLORHEXIDINE GLUCONATE 15 ML CUP MUCOUS MEM SCH ×2 (08:30→20:14)
[2018-02-08] MEDS: LACTATED RINGERS 1,000 ML IV SCH (08:31)
[2018-02-08] MEDS: PANTOPRAZOLE 40 MG/10 ML VIAL IVP SCH (08:31)
[2018-02-08] MEDS: ASPIRIN 325 MG TAB PO SCH (08:31)
[2018-02-08] MEDS: ATORVASTATIN 40 MG TAB PO SCH (08:31)
[2018-02-08] MEDS: CLOPIDOGREL 75 MG TAB PO SCH (08:31)
[2018-02-08 08:46] LABS: Glucose,Whole Blood 134 mg/dL (75-99)
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
[2018-02-08] MEDS: LISINOPRIL 2.5 MG TAB PO SCH ×2 (09:55→20:14)
--- NOTE | 2018-02-08 10:38 | PCN ---
PROCEDURE NOTE DATE OF PROCEDURE: 02/07/2018. PROCEDURE: Bronchoscopy, airway examination, therapeutic lavage. DESCRIPTION OF PROCEDURE: The patient was on the ventilator. The patient was receiving 100% oxygen. The patient was sedated and paralyzed. The bronchoscope was connected placed through the bronchoscope adapter into the endotracheal tube. There were thick secretions noted in the distal endotracheal tube and also in the mid to distal trachea. Most of the secretions and mucus plugs were noted on the left side. The mucus plugs were thick and viscid. They were welled up all the way to the tracheal gretel. Saline was used to help suction the mucus plugs. The mucus was noted to be in the left upper lobe lingula and the left lower lobe. They were suctioned with some difficulty because of the tenacious nature of the secretions. The right side had much less dense secretions. They were suctioned without difficulty. The patient tolerated the procedure well. The bronchoscope was withdrawn. There were no immediate complications. I passed on the findings to Dr. Leonard who was on-call for cardiothoracic surgery. The patient again tolerated the procedure very well. MMODL / IJN: [id number] /
--- NOTE | 2018-02-08 11:38 | PN ---
PROGRESS NOTE This patient is status post coronary artery bypass surgery. Patient subsequently has developed acute hypoxemic respiratory failure, most likely secondary to acute lung injury and ARDS. Exact etiology of the ARDS is unclear. The patient is requiring high . The patient did undergo CT scan today. There was no definite evidence of pulmonary embolism. There is evidence of obstruction of the left lower pulmonary bronchus with atelectasis of the left lower lung. The patient's blood pressure remains very labile and was significantly hypotensive this morning and now he is hypertensive. The patient is being treated with IV Cleviprex. He is currently intubated. Patient is on PEEP of 13, FiO2 of 15, FiO2 of 50. First and second heart sounds are normal. Lung examination reveals bilateral scattered wheezes. Abdomen is soft. The patient's laboratory tests are reviewed. BUN is 46 and creatinine is 0.93. ASSESSMENT AND PLAN: 1. Patient remains stable cardiac-aguirre without any arrhythmia. 2. Patient persists to be in acute hypoxemic respiratory failure. 3. The patient has very labile blood pressure. If he patient continues to have a significant hypertension, one can consider adding Catap[place] patch. MMODL / IJN: [id number] /
--- NOTE | 2018-02-08 12:08 | PCN ---
PROCEDURE NOTE PROCEDURE: Bronchoscopy airway examination, therapeutic lavage, BAL left lower lobe. PREOP DIAGNOSIS: Left lower lobe collapse. POSTOP DIAGNOSIS: Left lower lobe collapse. The patient was sedated and paralyzed for the procedure. The patient was on the mechanical ventilator. The bronchoscope was pushed through the bronchoscope adapter and connected to the endotracheal tube. It exited the endotracheal tube in the distal gretel. There were thick secretions noted in the left mainstem. The right side was relatively clear as it was yesterday. There were thick viscid secretions noted throughout the left lung and involved the left upper lobe lingula and left lower lobe. They were suctioned with some difficulty from the left side. The samples were sent to the laboratory for analysis. There was no bleeding. There was no dominant mass. The patient tolerated the procedure well. The bronchoscope was then withdrawn and the patient will be placed back to his previous ventilator settings. There was no immediate complications. The patient tolerated the procedure well. Again, the specimens were sent to the laboratory for analysis. MMODL / IJN: [id number] /
[2018-02-08] MEDS: amLODIPine 5 MG TAB PO SCH (12:28)
[2018-02-08 12:50] LABS: Glucose,Whole Blood 131 mg/dL (75-99)
--- NOTE | 2018-02-08 13:21 | P.PN ---
Subjective Progress Note Date: 02/08/18 Principal diagnosis: Status post off-pump 2 vessel bypass grafting Progress note dated 02/02/2018 42-year-old male postop day #2, status post off-pump two-vessel bypass grafting. Unfortunately, the patient has profound postoperative hypoxemic respiratory failure and likely has acute respiratory distress syndrome, although the etiology of ARDS is unclear given the fact that the patient wasn't off-pump bypass. He also has a history of recent acute non-ST segment elevation myocardial infarction, hypertension, chronic tobacco dependence and underlying COPD, obesity, and generalized anxiety disorder. Currently, the patient remains on the volume assist control mode. His current settings include a rate of 34, tidal volume 400, FiO2 on percent, and PEEP of 18. His arterial blood gases show a PaO2 of 60 to a PaCO2 of 48 and a pH of 7.32. Prior blood gases on volume assist control mode of 32 tidal volume 420 FiO2 100 % PEEP of 16 show a PaO2 of 80 to a PaCO2 of 61 and a pH of 7.16. The patient was admitted to the hospital on January 29 and had surgery on January 31. Currently, the patient's on Primacor at 0.1 mics per kilogram per minute, Cardizem drip at 10 mg an hour, Cleveprex which is currently on hold, fentanyl at 50 mcg/h, Nimbex at 1 britt per kilogram per minute, insulin drip at 10.5 units an hour and propofol 65 mcg/kg/m. The patient's chest x-ray shows typical post op changes with some left lower lobe atelectasis and infiltrate. Also, the endotracheal tube should be pushed down 1.5 cm. Also, a feeding tube was placed by thoracic surgery. Progress note dated 02/03/2018 42-year-old male, postop day #3, status post off-pump two-vessel bypass grafting. He developed profound postoperative hypoxemic respiratory failure with presumed acute respiratory distress syndrome. The etiology of the acute respiratory distress syndrome is not clear. He also has a recent history of acute non-ST segment elevation myocardial infarction, hypertension, chronic tobacco dependence, and underlying COPD. In addition, he has obesity and generalized anxiety disorder. He currently remains on the ventilator. He is on the volume assist control mode rate of 34, tidal volume 400, FiO2 70% to be dropped to 60%, and a PEEP of 8. Blood gases show a PaO2 of 87 a PaCO2 51 and a pH is 7.3. This is consistent with a very mild respiratory acidosis. Currently, his chest x-ray looks pretty good. He is receiving vital high protein at 20 with a goal of 20. In addition, he is on Nimbex at 1 britt per kilogram per minute, to be placed on hold, lactated Ringer's at 50 mL an hour, propofol at 50 mics per kilogram per minute, fentanyl 50 mcg/h, and insulin at 9.5 units per hour. Yesterday, the patient's FiO2 was 100%. He has made progress overnight. Microbiology is negative currently. Yesterday, thoracic surgery placed a feeding tube. Progress note dated 02/04/2018 42-year-old male, postop day #4, status post TWO-VESSEL BYPASS GRAFTING. UNFORTUNATELY, THE PATIENT DEVELOPED PROFOUND HYPOXEMIC RESPIRATORY FAILURE POST SURGICALLY. HE'S LIKELY DEVELOPED ACUTE RESPIRATORY DISTRESS SYNDROME ALTHOUGH THE ETIOLOGY OF THE ACUTE RESPIRATORY DISTRESS SYNDROME IN THIS PATIENT IS NOT CLEAR. THERE IS NO OBVIOUS INFECTION AND HE WAS NOT ON CARDIO PULMONARY BYPASS. THE PATIENT WAS ADMITTED WITH A DIAGNOSIS OF ACUTE NON-ST SEGMENT ELEVATION MYOCARDIAL INFARCTION, BENIGN ESSENTIAL HYPERTENSION, CHRONIC TOBACCO DEPENDENCE, AND COPD. HE ALSO SUFFERS FROM GENERALIZED ANXIETY DISORDER. CURRENTLY, HE REMAINS ON THE VOLUME ASSIST CONTROL MODE WITH A RATE OF 34, TIDAL VOLUME IS 400, FIO2 50%, AND PEEP OF 15. On THOSE SAME SETTINGS WITH A PEEP OF 18, HIS PO2 WAS 83, PACO2 WAS 42 AND HIS PH WAS 7.42. The PATIENT IS CURRENTLY ON PROPOFOL AT 70 MICS PER KILOGRAM PER MINUTE, LACTATED RINGER'S AT 20 ML AN HOUR, INSULIN DRIP AT 12 UNITS AN HOUR AND VITAL HIGH PROTEIN AT 31 WITH A GOAL OF 31 ML AN HOUR. WE ARE GOING TO REPEAT A BLOOD GAS AT 10 AM. THE PATIENT CHANGES MADE ABOUT 7 AM. IF EVERYTHING LOOKS GOOD, WE' LL MAKE ANOTHER PEEP CHANGE. HIS CHEST X-RAY IS ALMOST LOOKED PRETTY GOOD AND IT LOOKS CLEAN AGAIN TODAY. Progress note dated 02/05/2018 42-year-old male, postop day 5, status post two-vessel bypass grafting. The patient unfortunately developed profound hypoxemic respiratory failure in the postoperative phase. He likely developed acute respiratory distress syndrome although the etiology of this is unclear. The patient initially was on 100% and 18 of PEEP. Remember to wean him down now. Currently, his vent settings include the volume assist control mode, rate 34, tidal volume 400, FiO2 50% and PEEP of 10. On those settings, his blood gases show a PaO2 of 68, PaCO2 36 and a pH 7.50. The blood gases are consistent with a combined respiratory and mild metabolic alkalosis. The patient's fluids included lactated Ringer's at 20 mL an hour, propofol 70 mics per kilogram per minute and vital high protein at 31 with a goal of 31 mL an hour. The patient does have Klebsiella in his urine and that's being covered. His chest x-ray show some postoperative changes, a small left pleural effusion and basilar atelectasis. Overall, his condition has improved. Today, we will hold his sedation and do a spontaneous breathing trial on PSV 10 CPAP of 5. He may or may not be ready for extubation. In addition to the above, he has a history of acute non-ST segment elevation myocardial infarction, hypertension, chronic tobacco dependence and underlying COPD. Progress note dated 02/06/2018 42-year-old male, postop day #6, status post off-pump two-vessel bypass grafting. Unfortunately, the patient developed profound hypoxemic respiratory failure in the immediate postoperative phase. He likely has acute respiratory distress syndrome although its etiology is unclear. The patient was initially on 100% and 18 of PEEP. He been able to wean that down. Currently, the patient is on the VC plus mode, rate of 34, tidal volume 450, FiO2 50% and PEEP of 13. The blood gases show a PaO2 of 73 PaCO2 of 43 and a pH of 7.41. The patient's chest x-ray shows some mild bilateral infiltrates. She is currently on lactated Ringer's at 20 mL an hour, vital high protein at 31 with a goal of 31 mL an hour, Nimbex at 2 mics per kilogram per minute, Cleveprex at 21 mg an hour, propofol at 75 mics per kilogram per minute, and insulin at 9 units per hour. The patient's situation is very dire. He is very critically O. His prognosis is very guarded. The nurse gave him a sedation holiday off the paralytic but apparently he became dyssynchronous with the ventilator and we had to re-paralyze him. Microbiology shows evidence of Klebsiella in the urine. This is currently being treated. Progress note dated 02/07/2018 32 year old male, postop day #7, status post off pump two-vessel bypass grafting. Unfortunately, the patient developed profound hypoxemic respiratory failure and probable ARDS. The etiology is unclear. He remains on the mechanical ventilator. He is in the VC plus mode with a targeted tidal volume 450, and inspiratory time of 1 second, a rate of 34, FiO2 50%, and a PEEP of 13. The patient's blood gases show a PaO2 of 76, a PaCO2 44 and a pH of 7.40. The urine is positive for Klebsiella and that's being treated. Chest x-ray shows a small left-sided pleural effusion. We'll hold the Nimbex and see if we can keep him off the paralytic. He is on lactated Ringer's at 20 mL an hour , propofol at 50 mics per kilogram per minute and Cleveprex at 4 mg an hour. In addition, because we don't have a good explanation for his hypoxemia, sent for CT angiogram to rule out pulmonary embolism. The patient's hemodynamic status has been very labile. This morning he was very hypotensive. Now he is hypertensive requiring Cleveprex her blood pressure control. This has been his pattern all along. Progress note dated 02/08/2018 42-year-old male, postop day #8, status post off-pump two-vessel bypass grafting. Unfortunately, the patient developed profound hypoxemic respiratory failure and probable ARDS. The etiology is unclear. He remains on the mechanical ventilator. Yesterday, because of left lung collapse, we did bronchoscopy. We repeated the process again this morning here in the ICU. He had lost his secretions in the left lung including the left upper lobe, lingula , and left lower lobe. His respiratory status remains tenuous. He remains on the volume assist control mode with a rate of 34, tidal volume 450, FiO2 50% and PEEP of 13. The patient's blood gases this morning showed a PaO2 of 102 PaCO2 38 and a pH of 7.45. He remains on Cleveprex for blood pressure control, propofol at 50 mics per kilogram per minute, lactated Ringer's at 20 mL an hour Nimbex at 2 mics per kilogram per minute with a peripheral nerve stimulator. He is also receiving vital high protein at 31 with a goal of 31 mL an hour. Urine sampling has shown Klebsiella pneumoniae which is currently being treated. White count is 28,000, hemoglobin 10.8, hematocrit 33.4 and platelet count 416,000. Sodium and potassium are normal, chlorides 111 CO2 26 anion gap is normal with a BUN of 61 and creatinine of 1.10 suggesting prerenal azotemia. Chest x-ray continues to show left basilar airspace disease. Objective - Vital Signs Vital signs: Vital Signs Temp 99.2 F 02/08/18 12:00 Pulse 99 02/08/18 12:00 Resp 34 H 02/08/18 12:00 BP 84/47 02/08/18 08:00 Pulse Ox 92 L 02/08/18 12:00 Intake & Output 02/07/18 02/08/18 02/08/18 18:59 06:59 18:59 Intake Total 968.309 0775.913 851.150 Output Total 1565 1185 990 Balance -632.368 233.913 -138.850 Weight 105.5 kg Intake: IV 276 276 138 Lactated Ringers 1,000 ml 240 240 120 @ 20 mls/hr IV .Q24H [facility] Rx#:[id number] Pressure Bag 36 36 18 Intake, IV Titration 257.632 771.913 355.150 Amount Albumin Human 25% 50 ml 50 In Empty Bag 1 bag @ 100 mls/hr IVPB ONCE ONE Rx#: [id number] Albumin Human 5% 250 ml 250 In Empty Bag 1 bag @ 250 mls/hr IVPB ONCE STA Rx#: [id number] Cisatracurium 200 mg In 200 159.8 Sodium Chloride 0.9% 180 ml @ 1 MCG/KG/MIN 6.37 mls/hr IV .Q24H [facility] Rx#: [id number] Clevidipine Butyrate 25 49.334 34.866 33.6 mg In Empty Bag 1 bag @ 1 MG/HR 2 mls/hr IV .Q24H [facility] Rx#:[id number] Lactated Ringers 1,000 ml 20 @ 20 mls/hr IV .Q24H [facility] Rx#:[id number] Propofol 1,000 mg In 188.298 237.047 161.750 Empty Bag 1 bag @ Titrate IV .Q0M [facility] Rx#: [id number] Tube Feeding 279 341 248 Other 120 30 110 Output: Urine 1565 1185 990 Other: Voiding Method Indwelling Catheter Indwelling Catheter Indwelling Catheter # Bowel Movements 1 ABP, PAP, CO, CI - Last Documented Arterial Blood Pressure 176/78 Pulmonary Artery Pressure 36/26 Cardiac Output 6.4 Cardiac Index 2.9 - Exam No acute distress, sedated and paralyzed, with an orally placed endotracheal tube and a Dobbhoff tube. HEENT examination is grossly unremarkable. Mucous membranes are moist. Neck supple. Full range of motion. No adenopathy thyromegaly or neck vein distention. Cardiovascular examination reveals regular rhythm rate. S1-S2 normal. No S3 or S4. No discernible murmur noted. Heart sounds are distant. Lungs reveal coarse bilateral inspiratory and expiratory wheezes and rhonchi. Crackles are appreciated bilaterally. Breath sounds are equal bilaterally. Breath sounds diminished at the left base. Abdomen soft and bowel sounds are heard. No masses or tenderness. Extremities are intact. No cyanosis clubbing or edema. Skin is without rash or lesion. Neurologic examination is cannot be adequately assessed because of sedation. - Labs CBC & Chem 7: 02/08/18 04:25 02/08/18 04:25 Labs: Abnormal Lab Results - Last 24 Hours (Table) 02/07/18 02/07/18 02/07/18 Range/Units 16:32 20:13 20:44 WBC (3.8-10.6) k/uL RBC (4.30-5.90) m/uL Hgb (13.0-17.5) gm/dL Hct (39.0-53.0) % Neutrophils # (1.3-7.7) k/uL Monocytes # (0-1.0) k/uL Eosinophils # (0-0.7) k/uL ABG HCO3 29 H (21-25) mmol/L ABG Total CO2 30 H (19-24) mmol/L ABG O2 Saturation 97.9 H (94-97) % Chloride (98-107) mmol/L BUN (9-20) mg/dL Glucose (74-99) mg/dL POC Glucose (mg/dL) 159 H 114 H (75-99) mg/dL Magnesium (1.6-2.3) mg/dL Alkaline Phosphatase (38-126) U/L Total Protein (6.3-8.2) g/dL Albumin (3.5-5.0) g/dL 02/07/18 02/08/18 02/08/18 Range/Units 23:55 04:04 04:25 WBC (3.8-10.6) k/uL RBC (4.30-5.90) m/uL Hgb (13.0-17.5) gm/dL Hct (39.0-53.0) % Neutrophils # (1.3-7.7) k/uL Monocytes # (0-1.0) k/uL Eosinophils # (0-0.7) k/uL ABG HCO3 (21-25) mmol/L ABG Total CO2 (19-24) mmol/L ABG O2 Saturation (94-97) % Chloride 111 H (98-107) mmol/L BUN 61 H (9-20) mg/dL Glucose 102 H (74-99) mg/dL POC Glucose (mg/dL) 115 H 107 H (75-99) mg/dL Magnesium 3.2 H (1.6-2.3) mg/dL Alkaline Phosphatase 35 L (38-126) U/L Total Protein 5.2 L (6.3-8.2) g/dL Albumin 2.9 L (3.5-5.0) g/dL 02/08/18 02/08/18 02/08/18 Range/Units 04:25 05:30 08:34 WBC 28.0 H (3.8-10.6) k/uL RBC 3.45 L (4.30-5.90) m/uL Hgb 10.8 L (13.0-17.5) gm/dL Hct 33.4 L (39.0-53.0) % Neutrophils # 20.8 H (1.3-7.7) k/uL Monocytes # 1.3 H (0-1.0) k/uL Eosinophils # 1.1 H (0-0.7) k/uL ABG HCO3 27 H (21-25) mmol/L ABG Total CO2 (19-24) mmol/L ABG O2 Saturation (94-97) % Chloride (98-107) mmol/L BUN (9-20) mg/dL Glucose (74-99) mg/dL POC Glucose (mg/dL) 134 H (75-99) mg/dL Magnesium (1.6-2.3) mg/dL Alkaline Phosphatase (38-126) U/L Total Protein (6.3-8.2) g/dL Albumin (3.5-5.0) g/dL 02/08/18 Range/Units 12:38 WBC (3.8-10.6) k/uL RBC (4.30-5.90) m/uL Hgb (13.0-17.5) gm/dL Hct (39.0-53.0) % Neutrophils # (1.3-7.7) k/uL Monocytes # (0-1.0) k/uL Eosinophils # (0-0.7) k/uL ABG HCO3 (21-25) mmol/L ABG Total CO2 (19-24) mmol/L ABG O2 Saturation (94-97) % Chloride (98-107) mmol/L BUN (9-20) mg/dL Glucose (74-99) mg/dL POC Glucose (mg/dL) 131 H (75-99) mg/dL Magnesium (1.6-2.3) mg/dL Alkaline Phosphatase (38-126) U/L Total Protein (6.3-8.2) g/dL Albumin (3.5-5.0) g/dL Microbiology - Last 24 Hours (Table) 02/07/18 19:20 Urine Culture - Preliminary Urine,Catheterized 02/06/18 12:00 Urine Culture - Final Urine,Catheterized 02/06/18 12:00 Blood Culture - Preliminary Blood No Growth after 24 hours Assessment and Plan Assessment: Assessment Postop day #8, status post off-pump 2 vessel bypass grafting Postoperative mechanical ventilatory support Postoperative hypoxemic respiratory failure, likely secondary to acute respiratory distress syndrome (ARDS). Recent acute non-ST segment elevation myocardial infarction Status post bronchoscopy on February 07 and February 08 for lung collapse, left lower lobe History of hypertension Chronic tobacco dependence and underlying COPD Obesity History of generalized anxiety disorder Profound hemodynamic instability Plan: Plan dated 02/02/2018 Current blood gases are adequate. There will be no PEEP changes at this time. The first thing to be reduced to be the FiO2. The patient is not ready for weaning obviously given his unstable respiratory and cardiovascular status. Tube feeds should be started as soon as possible. A Dobbhoff feeding tube was placed by thoracic surgery. The patient should not receive any bicarbonate at this time. Urine culture showed evidence of Klebsiella pneumoniae. We'll check to make sure the patient's on adequate antibiotics. The rest of his medications were reviewed. Medications are currently reviewed. White count is 34, hemoglobin 13.5, hematocrit 40.4, and platelet count 267,000. Sodium 141 potassium 4.3 chloride is 106 CO2 is 20. BUN and creatinine are 15 and 1.21. Anion gap is 15. Overall prognosis remains guarded. The patient will likely require long-term mechanical ventilatory support. Again, the goal would be a low tidal volume high PEEP strategy. Additional recommendations and suggestions are forthcoming. Medications labs are reviewed. Critical care time 37 minutes Plan dated 02/03/2018 Today we will hold the patient's paralytic. We'll see if we can manage him without it. We'll continue to drop the FiO2. It was a drop down to 60%. Hopefully, later today or tomorrow drop down to 50% at which time we can begin to start to make PEEP changes. Currently he is on a PEEP of 18. He is receiving nourishment. A Dobbhoff to was placed by thoracic surgery. His chest x-ray looks relatively stable. White count is 28.2, hemoglobin 10.8, hematocrit 33.5, and platelet count 264,000. Sodium 140, potassium 4.8, chlorides 108, CO2 25, anion gap is normal, BUN 31, and creatinine is 1.58. We will continue with mechanical ventilatory support and best supportive care. Prognosis is guarded. The patient's on appropriate medications which have been reviewed. Microbiologic studies thus far are negative. Critical care time 35 minutes Plan dated 02/04/2018 The patient's currently off the fentanyl drip and the paralytic. The patient remains on propofol 70 mics per kilogram per minute. The lactated Ringer's will be decreased to 20 mL an hour. The patient remains on an insulin drip at 12 units an hour. He is being nourished. A repeat arterial blood gas will be done at 10 AM. If it looks good, I will likely make another PEEP change. Urine was positive for Klebsiella and is on appropriate antibiotic. White count is 25.6, hemoglobin 10.5, hematocrit 31.4 and platelet count 318,000. Sodium and potassium are normal. Chlorides 108, CO2 27, anion gap is normal, and BUN is 39 with a creatinine of 1.17. The patient's overall prognosis remains guarded. We'll continue to follow him very closely. His respiratory status is certainly a concern. Hopefully blood gases at 10 would be excellent and we'll be able to make another PEEP change. Critical care time 36 minutes Plan dated 02/05/2018 Currently, the patient is doing reasonably well. His oxygenation has improved and would be able to wean his PEEP down to 10 from 18 and also reduce his FiO2 from on percent to 50%. Chest x-ray shows some changes at the left base. His urine is positive for Klebsiella and S2 being covered. Today, we will do a daily interruption of sedation with a spontaneous breathing trial on a PSV of 10 and CPAP of 5. We will continue with nourishment with the vital high protein. He is also on lactated Ringer's at 20 mL an hour. White count is 27.4 , hemoglobin 10.9, hematocrit 33.4 and platelet count 362,000. Sodium is 141 potassium 4.8 chlorides 109 CO2 25 anion gap is normal at 7 BUN 50 creatinine 1.17. Medications are reviewed. Everything seems appropriate. We'll continue to follow. Prognosis is guarded. Critical care time 34 minutes Plan dated 02/06/2018 Currently, the patient needed to be re-paralyzed. He was dyssynchronous with the ventilator when paralysis was stopped. The patient's chest x-rays reviewed. Labs and medications are reviewed. Remains on the ventilator in the VC plus modality. He remains on Cleveprex propofol and Nimbex. He is receiving nutrition. White blood count is 33.2, hemoglobin 12.6, hematocrit 37.4 and platelet count 413,000. Sodium 142 potassium 5.1 chlorides 111 CO2 22 anion gap 9 BUN 46 and creatinine 0.93. Medications are reviewed. X-rays and labs are all reviewed. I will repeat a blood gas. I'll also make sure the patient is recultured. Blood gas was a PaO2 of 76, a PaCO2 of 42 and a pH is 7.434. I will ask the nurse Christina, to recultured the patient's blood urine and sputum. Additional recommendations and suggestions are forthcoming. Critical care time 36 minutes Plan dated 02/07/2018 The patient is receiving nutrition. He is at goal. He is being treated for the Klebsiella in his urine. We'll go to stop the steroids. He remains on lactated Ringer's, propofol, and Cleveprex. We will set up for a CT angiogram of the chest to rule out pulmonary embolism. His ventilator settings are stable and his blood gases are reasonable. We previously tried to stop his paralytic and sedation and put him on some pressure support and CPAP but he did not do well. Additional recommendations and suggestions are forthcoming. Prognosis is guarded. White blood count is 33.3, hemoglobin 12.7, hematocrit 38.8 and platelet count 459,000. Sodium 143, potassium 5.3, chloride is 110 and CO2 25. Anion gap is normal. BUN is 47 with a creatinine of 0.96. The patient will have a CT angiogram the chest later this morning or early this afternoon to rule out pulmonary embolism. Prognosis is guarded. Critical care time 37 minutes Plan dated 02/08/2018 The patient remains on Cleveprex, propofol, and Nimbex. He does have a peripheral nerve stimulator guiding his paralytic therapy. He is receiving nutrition with vital high protein. He had bronchoscopy performed both yesterday and today. Sampling was sent to laboratory for analysis. His overall situation remains very guarded. He remains on 50% FiO2 and PEEP of 13. Blood gases are reasonable today. I did speak to Dr. Leonard about the patient. We will continue to follow. Prognosis is guarded. We will await sampling from the [place]. CT angiogram of the chest was negative for PE. Critical care time 33 minutes Time with Patient: Greater than 30
[2018-02-08] MEDS: DEXTROSE 5%-0.45% NACL 1,000 ML IV SCH (13:34)
[2018-02-08 14:06] LABS: Appearance,BF Cloudy; Nucleated Cells, Body Fluid 7100 /uL; RBC, Body Fluid 220 /uL
[2018-02-08 14:11] LABS: Total Cells Counted,Body Fluid 100
[2018-02-08 14:17] LABS: Mononuclear WBC,Body Fluid 57 %; Polynuclear WBC,Body Fluid 43 %
[2018-02-08 16:50] LABS: Glucose,Whole Blood 110 mg/dL (75-99)
[2018-02-08] MEDS: INSULIN DETEMIR 100 UNIT/ML 10 ML VIAL SQ SCH (20:13)
[2018-02-08] MEDS: SENNOSIDES-DOCUSATE SODIUM 1 EACH TAB PO SCH (20:15)
[2018-02-08 20:17] LABS: Glucose,Whole Blood 147 mg/dL (75-99)
--- NOTE | 2018-02-08 23:11 | PN ---
PROGRESS NOTE DATE OF SERVICE: 02/08/2018 This 42-year-old gentleman who was admitted after 2 vessel CABG also had acute hypoxic respiratory failure. The patient also had mucous plugging. Patient had bronchoscopy last night yesterday by Dr. Castro. Today, also bronchoscopy is being repeated because of the left lower lobe collapse, decreased secretions are noted. The patient mechanically sedated. The patient is on PEEP of 13. PAST MEDICAL: Reviewed. REVIEW OF SYSTEMS: Could not be taken the patient mechanically. CURRENT MEDICATIONS ARE: Reviewed and include: 1. Lowry 5 mg q.4h p.r.n. 2. DuoNeb q.i.d. and p.r.n. 3. Amiodarone drip. 4. Norvasc 5 mg p.o. daily. 5. Artificial Tears. 6. Aspirin 320 mg p.o. daily. 7. Lipitor 40 mg p.o. daily. 8. Cepacol. 9. Dulcolax. 10.Pulmicort 1 mg b.i.d. 11.Chlorhexidine. 13.Plavix. 14.Heparin. 15.Dilaudid IV. PHYSICAL EXAM: Patient is mechanically ventilated and sedated. Pulse 94, blood pressure is 91/ 54, respiration 20, temperature 98.4. Pulse ox 100 percent on FIO2. HEENT: Conjunctivae normal. Oral mucosa muoist. Neck is no jugular venous distention. No carotid bruit. No lymph node enlargement. Cardiovascular system; S1, S2 normal. Bilateral scattered rhonchi and crackles. ABDOMEN: Soft non nontender. Legs: No edema. No swelling. Nervous system: The patient is on mechanical ventilation. Most recent chest x-ray significant improvement. LABS: WBC 28, hemoglobin is 10.8. ASSESSMENT: 1. Coronary artery disease status post two-vessel coronary artery bypass grafting. 2. Acute hypoxic respiratory failure on mechanical ventilation, possibly secondary to acute ARDS. 3. Number possible mucus plugging status post bronchoscopy. 4. Acute coronary syndrome with ST elevation myocardial infarction on admission. 5. History of nicotine dependence. 6. Hypertension. 7. Obesity. 8. Generalized anxiety. 9. Increased ambulation. 10.Generalized anxiety. 11.Increased random blood sugars. 12.Increased WBC, neutrophils. 13.History of hypertension. 14.History of coronary artery disease stent. 15.History of anxiety. 16.History of nicotine dependence. 17.FULL CODE. RECOMMENDATIONS AND DISCUSSION: Continue current medications and symptomatic treatment otherwise I would recommend bronchodilators. Continue the antibiotics. Currently patient is not on antibiotics. Will continue to monitor. Further recommendations to follow. We will await bronchoscopy cultures. MMODL / IJN: [id number] / MTDD
[2018-02-09] MEDS: IPRATROPIUM-ALBUTEROL 3 ML NEB INHALATION SCH ×6 (00:33→20:09)
[2018-02-09] MEDS: INSULIN ASPART 100 UNIT/ML 1 ML 10 ML VIAL SQ SCH ×7 (01:25→23:52)
[2018-02-09] MEDS: HEPARIN SODIUM,PORCINE 5,000 UNIT/ML 1 ML VIAL SQ SCH ×4 (01:26→23:57)
[2018-02-09] MEDS: ARTIFICIAL TEARS-HYPROMELLOSE DROPS 15 ML BTL BOTH EYES SCH ×7 (01:27→23:57)
[2018-02-09 01:39] LABS: Glucose,Whole Blood 118 mg/dL (75-99)
[2018-02-09] MEDS: PROPOFOL 1,000 MG in EMPTY BAG 1 BAG IV SCH ×7 (01:48→21:03)
[2018-02-09] MEDS: ACETAMINOPHEN TAB 500 MG TAB PO PRN ×2 (02:26→16:27)
[2018-02-09 04:51] LABS: Glucose,Whole Blood 148 mg/dL (75-99)
[2018-02-09 05:05] LABS: Basophils # (A) 0.3 k/uL (0-0.2); Basophils % (A) 1 %; Eosinophils # (A) 1.1 k/uL (0-0.7); Eosinophils % (A) 4 %; HCT 37.1 % (39.0-53.0); HGB 12.1 gm/dL (13.0-17.5); Lymphocytes # (A) 3.7 k/uL (1.0-4.8); Lymphocytes % (A) 12 %; MCH 31.8 pg (25.0-35.0); MCHC 32.7 g/dL (31.0-37.0); MCV 97.1 fL (80.0-100.0); Monocytes # (A) 2.1 k/uL (0-1.0); Monocytes % (A) 7 %; Neutrophils # (A) 24.4 k/uL (1.3-7.7); Neutrophils % (A) 76 %; Platelet Count 438 k/uL (150-450); RBC 3.82 m/uL (4.30-5.90); RDW 14.4 % (11.5-15.5); WBC 32.3 k/uL (3.8-10.6)
[2018-02-09 05:13] LABS: ALT 58 U/L (21-72); AST 28 U/L (17-59); Albumin 3.3 g/dL (3.5-5.0); Alkaline Phosphatase 50 U/L (38-126); Anion Gap 8 mmol/L; Blood Urea Nitrogen 45 mg/dL (9-20); Carbon Dioxide 25 mmol/L (22-30); Chloride 111 mmol/L (98-107); Glucose 151 mg/dL (74-99); Magnesium 2.9 mg/dL (1.6-2.3); Potassium 4.9 mmol/L (3.5-5.1); Sodium 144 mmol/L (137-145); Total Bilirubin 0.6 mg/dL (0.2-1.3); Total Protein 6.2 g/dL (6.3-8.2)
[2018-02-09 05:24] LABS: INR 1.1 (<1.2)
[2018-02-09] MEDS: CLEVIDIPINE BUTYRATE 25 MG in EMPTY BAG 1 BAG IV SCH ×4 (05:34→21:50)
[2018-02-09 05:56] LABS: ABG Base Excess 0.9 mmol/L; ABG HCO3 25 mmol/L (21-25); ABG PCO2 39 mmHg (35-45); ABG PH 7.42 (7.35-7.45); ABG PO2 77 mmHg (83-108)
--- NOTE | 2018-02-09 06:05 | PN ---
PROGRESS NOTE This patient is status post coronary artery bypass. He has acute respiratory failure secondary to acute lung injury. The patient's CT scan was suggestive of collapse of the left lower lobe x2. The patient continues to have a significantly labile blood pressure. Blood pressure varies from 80-160 mmHg. The patient has a temperature of 100.1, respiratory rate remains 34. First and second heart sounds are heard. Lungs reveal bilaterally diminished air entry. Hemoglobin [place] 10.8[place] [address]. Arterial blood gases shows pH is 7.45, pCO2 is 38, and PO2 is 102. RECOMMENDATIONS: Continue the current supportive cardiac care. Patient's overall prognosis appears guarded. MMODL / IJN: [id number] /
[2018-02-09] MEDS: FORMOTEROL FUMARATE 20 MCG/2 ML NEBU INHALATION SCH ×2 (07:25→20:09)
[2018-02-09] MEDS: BUDESONIDE 1 MG/2 ML NEBU INHALATION SCH ×2 (07:25→20:09)
--- NOTE | 2018-02-09 07:27 | XR ---
EXAMINATION TYPE: XR chest 1V portable DATE OF EXAM: 02/09/2018 COMPARISON: Prior chest x-ray 02/08/2018 HISTORY: Status post cardiac surgery, intubated TECHNIQUE: Single frontal view of the chest is obtained. FINDINGS: Endotracheal tube is overlying appropriate position. There is a Dobbhoff tube which is coi led in the left upper quadrant. Left hemidiaphragm remains obscured, retrocardiac density is present. There is no pneumothorax. There are overlying cardiac leads and the patient is post median sternotom y. Left-sided PICC line is coursing towards the right atrium and is likely within the superior vena c edilberto. IMPRESSION: Probable left lower lobe atelectasis versus pneumonia or edema and associated effusion.
[2018-02-09] MEDS: ATORVASTATIN 40 MG TAB PO SCH (08:12)
[2018-02-09] MEDS: LISINOPRIL 2.5 MG TAB PO SCH ×2 (08:12→20:51)
[2018-02-09] MEDS: PANTOPRAZOLE 40 MG/10 ML VIAL IVP SCH (08:12)
[2018-02-09] MEDS: ASPIRIN 325 MG TAB PO SCH (08:12)
[2018-02-09] MEDS: CLOPIDOGREL 75 MG TAB PO SCH (08:12)
[2018-02-09] MEDS: METOPROLOL TARTRATE 50 MG TAB PO SCH ×2 (08:12→21:07)
[2018-02-09] MEDS: CHLORHEXIDINE GLUCONATE 15 ML CUP MUCOUS MEM SCH ×2 (08:13→20:51)
[2018-02-09 08:17] LABS: Glucose,Whole Blood 145 mg/dL (75-99)
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
[2018-02-09] MEDS: MEROPENEM 1 GM in SODIUM CHLORIDE 0.9% 100 ML IVPB SCH ×3 (09:51→23:57)
[2018-02-09 10:05] LABS: ABG HCO3 24 mmol/L (21-25); ABG PCO2 43 mmHg (35-45); ABG PH 7.37 (7.35-7.45); ABG PO2 78 mmHg (83-108)
[2018-02-09 10:06] LABS: ABG Base Excess -0.4 mmol/L
--- NOTE | 2018-02-09 11:05 | P.PN ---
Subjective Progress Note Date: 02/09/18 This 42-year-old male patient is postop day #9 following his 2 vessel bypass surgery, off pump. Postop, the patient has been still intubated on mechanical ventilator due to complications of ARDS. On today's evaluation, I find this patient sedated with Diprivan and currently is on 50 mics of Diprivan for sedation. He is also paralyzed with Nimbex. He is calm and comfortable and synchronous with the mechanical ventilator. Earlier this morning he was an assist-control mode of ventilation with a tidal volume of 450, FiO2 of 50% with a PEEP of 13 and a respiratory rate of 34. He was on a I:E ratio of 1.2-1 and his inspiratory time was at 1.0 seconds. He had a blood gases earlier this morning that showed a pH of 7.42 with a pCO2 of 39 and pO2 of 77 and this was done earlier this morning and FiO2 of 50%. His chest x-ray showed a left lower lobe consolidation and ET tube was in a good location with diffuse groundglass changes throughout the lung hahn bilaterally consistent with ARDS. On examination, he had bilateral rhonchi and some limited expiratory wheeze. He underwent a bronchoscopy yesterday and the bronchioloalveolar lavage from left lower lobe is still pending for now and there is no microbial growth. However, there was copious amount of rest or secretions based on the operative report and the patient is running a low-grade fever with a T-max of 11.4. Based on all this, I left lower lobe pneumonia was suspected and I started this patient on IV meropenem. IV Zosyn on consult. Despite all this, he is hemodynamically stable. He is in a sinus rhythm. Sternum is stable clean and intact. No chest tubes are in place and all of the chest tubes have been removed. The neck fluid balance is 375 mL negative over the past 24 hours. He is on no pressors. He is tolerating his tube feedings which is in the form of vital at 30 mL an hour. Is producing adequate urine output. No other significant events overnight. His white cell count has been persistently elevated and remains elevated at 32.3. Hemoglobin stable at 12.1. Objective - Vital Signs Vital signs: Vital Signs Temp 100 F H 02/09/18 08:00 Pulse 103 H 02/09/18 10:00 Resp 30 H 02/09/18 10:00 BP 155/80 02/09/18 03:00 Pulse Ox 94 L 02/09/18 10:00 Intake & Output 02/08/18 02/09/18 02/09/18 18:59 06:59 18:59 Intake Total 6706.864 3506.276 779.563 Output Total 1845 1305 500 Balance -362.082 -13.724 279.563 Weight 99.5 kg Intake: IV 156 36 12 Lactated Ringers 1,000 ml 120 @ 20 mls/hr IV .Q24H [facility] Rx#:[id number] Pressure Bag 36 36 12 Intake, IV Titration 721.918 699.276 532.563 Amount Cisatracurium 200 mg In 178.815 40.874 74.163 Sodium Chloride 0.9% 180 ml @ 1 MCG/KG/MIN 6.37 mls/hr IV .Q24H [facility] Rx#: [id number] Clevidipine Butyrate 25 67.333 42.267 58.400 mg In Empty Bag 1 bag @ 1 MG/HR 2 mls/hr IV .Q24H [facility] Rx#:[id number] Dextrose 5%-0.45% NaCl 1, 180 360 200 000 ml @ 50 mls/hr IV . Q20H [facility] Rx#:[id number] Meropenem 1 gm In Sodium 100 Chloride 0.9% 100 ml @ 200 mls/hr IVPB Q8HR [facility] Rx#:[id number] Propofol 1,000 mg In 295.770 256.135 100 Empty Bag 1 bag @ Titrate IV .Q0M [facility] Rx#: [id number] Tube Feeding 465 496 155 Other 140 60 80 Output: Urine 1845 1305 500 Other: Voiding Method Indwelling Catheter Indwelling Catheter # Bowel Movements 1 ABP, PAP, CO, CI - Last Documented Arterial Blood Pressure 135/78 Pulmonary Artery Pressure 36/26 Cardiac Output 6.4 Cardiac Index 2.9 - Exam Intubated on mechanical ventilator sedated and paralyzed, comfortable. Orogastric and nasal Dobbhoff are both in place. Head exam was generally normal. There was no scleral icterus or corneal arcus. Mucous membranes were moist. Neck was supple and without jugular venous distension, thyromegaly, or carotid bruits. Carotids were easily palpable bilaterally. There was no adenopathy. Lungs sounds are diminished and there is some scattered rhonchi heard throughout the lung hahn bilaterally and some scattered expiratory wheezes. Sternum stable clean and intact. Cardiac exam revealed the PMI to be normally situated and sized. The rhythm was regular and no extrasystoles were noted during several minutes of auscultation. The first and second heart sounds were normal and physiologic splitting of the second heart sound was noted. There were no murmurs, rubs, clicks, or gallops. The patient is in sinus tachycardia. Abdominal exam revealed normal bowel sounds. The abdomen was soft, non-tender, and without masses, organomegaly, or appreciable enlargement of the abdominal aorta. Examination of the extremities revealed easily palpable radial, femoral and pedal pulses. There was no cyanosis, clubbing or edema. Examination of the skin revealed no evidence of significant rashes, suspicious appearing nevi or other concerning lesions. Sternum stable clean and intact Neurologically the patient is sedated and paralyzed. - Labs CBC & Chem 7: 02/09/18 04:30 02/09/18 04:30 Labs: Abnormal Lab Results - Last 24 Hours (Table) 02/08/18 02/08/18 02/08/18 Range/Units 12:38 16:38 20:06 WBC (3.8-10.6) k/uL RBC (4.30-5.90) m/uL Hgb (13.0-17.5) gm/dL Hct (39.0-53.0) % Neutrophils # (1.3-7.7) k/uL Monocytes # (0-1.0) k/uL Eosinophils # (0-0.7) k/uL Basophils # (0-0.2) k/uL ABG pO2 (83-108) mmHg Chloride (98-107) mmol/L BUN (9-20) mg/dL Glucose (74-99) mg/dL POC Glucose (mg/dL) 131 H 110 H 147 H (75-99) mg/dL Magnesium (1.6-2.3) mg/dL Total Protein (6.3-8.2) g/dL Albumin (3.5-5.0) g/dL 02/09/18 02/09/18 02/09/18 Range/Units 01:19 04:00 04:30 WBC 32.3 H (3.8-10.6) k/uL RBC 3.82 L (4.30-5.90) m/uL Hgb 12.1 L (13.0-17.5) gm/dL Hct 37.1 L (39.0-53.0) % Neutrophils # 24.4 H (1.3-7.7) k/uL Monocytes # 2.1 H (0-1.0) k/uL Eosinophils # 1.1 H (0-0.7) k/uL Basophils # 0.3 H (0-0.2) k/uL ABG pO2 77 L (83-108) mmHg Chloride (98-107) mmol/L BUN (9-20) mg/dL Glucose (74-99) mg/dL POC Glucose (mg/dL) 118 H (75-99) mg/dL Magnesium (1.6-2.3) mg/dL Total Protein (6.3-8.2) g/dL Albumin (3.5-5.0) g/dL 02/09/18 02/09/18 02/09/18 Range/Units 04:30 04:39 08:05 WBC (3.8-10.6) k/uL RBC (4.30-5.90) m/uL Hgb (13.0-17.5) gm/dL Hct (39.0-53.0) % Neutrophils # (1.3-7.7) k/uL Monocytes # (0-1.0) k/uL Eosinophils # (0-0.7) k/uL Basophils # (0-0.2) k/uL ABG pO2 (83-108) mmHg Chloride 111 H (98-107) mmol/L BUN 45 H (9-20) mg/dL Glucose 151 H (74-99) mg/dL POC Glucose (mg/dL) 148 H 145 H (75-99) mg/dL Magnesium 2.9 H (1.6-2.3) mg/dL Total Protein 6.2 L (6.3-8.2) g/dL Albumin 3.3 L (3.5-5.0) g/dL 02/09/18 Range/Units 09:51 WBC (3.8-10.6) k/uL RBC (4.30-5.90) m/uL Hgb (13.0-17.5) gm/dL Hct (39.0-53.0) % Neutrophils # (1.3-7.7) k/uL Monocytes # (0-1.0) k/uL Eosinophils # (0-0.7) k/uL Basophils # (0-0.2) k/uL ABG pO2 78 L (83-108) mmHg Chloride (98-107) mmol/L BUN (9-20) mg/dL Glucose (74-99) mg/dL POC Glucose (mg/dL) (75-99) mg/dL Magnesium (1.6-2.3) mg/dL Total Protein (6.3-8.2) g/dL Albumin (3.5-5.0) g/dL Microbiology - Last 24 Hours (Table) 02/08/18 22:45 Urine Culture - Preliminary Urine,Catheterized 02/06/18 22:05 Gram Stain - Final Sputum Sputum Culture - Final Beta Hemolytic Strep Group C 02/08/18 10:50 Acid Fast Bacilli Smear - Final Bronchial Washings - Left Acid Fast Bacilli Culture - Preliminary 02/08/18 10:50 Gram Stain - Preliminary Bronchial Washings - Left Bronchial Washings Culture - Preliminary 02/07/18 19:20 Urine Culture - Final Urine,Catheterized 02/08/18 10:50 Fungal Culture - Preliminary Bronchial Washings - Left 02/06/18 12:00 Blood Culture - Preliminary Blood No Growth after 48 hours Assessment and Plan Plan: Assessment 1 coronary artery bypass surgery and the patient is postop day #9, status post off-pump 2 vessel bypass surgery 2 postoperative ARDS, remains intubated on mechanical ventilator. The patient was not extubated since his surgery. In addition he has developed left lower lobe pneumonia post bronchoscopy and removal of mucous plugs 3 left lower lobe consolidation 4 low-grade fever 5 history of left lower lobe atelectasis/collapse post bronchoscopy and removal of mucous plugs 6 COPD 7 sinus tachycardia 8 enteral feeding via Dobbhoff for nutritional support 9 chronic leukocytosis Plan The patient will be kept sedated and paralyzed. The priority for now is to get him off the paralytics. For that reason, I would like some vent changes to make the breathing comfortable off paralytics. I will try to remove the inverse ratio breathing and see if the patient is able to tolerate that. For that reason, I put down the inpiratory time to 0.8 making his respiratory segment to 1-2 breathing. I also drop Brester rate down to 30. The follow-up blood gases following that showed stable findings with a pH of 7.37 with a pCO2 of 43 and pO2 of 78. His oxidation did not get affected at all. I'm going to further extended exhalation time and following that start weaning down the PEEP. I also drop the slurred rate down to 26 and follow-up blood gases will be done. In terms of his left lower lobe pneumonia, I think it's reasonable to have antibiotics/that he is having fever and rhonchi. The bronchoscopy notes were reviewed and the patient has significant mucous plug and left lower lobe. I think addition of IV Merrem is reasonable at this point in time special with him being intubated on a mechanical ventilator. We'll be awaiting the results of the bronchioloalveolar lavage. Monitor fever pattern. Monitor hemodynamics. Continue enteral feeding for nutritional support. He was on steroids at one point for his ARDS and currently is off steroids. He is on a equal fluid balance and there is no signs of fluid overload. The records were reviewed. White cell count will be monitored, I will continue following up this patient along with the surgical team. Critically care evaluation more than 30 minutes. Time with Patient: Greater than 30
[2018-02-09 12:31] LABS: Glucose,Whole Blood 132 mg/dL (75-99)
[2018-02-09] MEDS: amLODIPine 5 MG TAB PO SCH (12:53)
[2018-02-09] MEDS: DEXTROSE 5%-0.45% NACL 1,000 ML IV SCH (12:54)
[2018-02-09] MEDS: CISATRACURIUM 200 MG in SODIUM CHLORIDE 0.9% 180 ML IV SCH ×2 (12:55→23:20)
--- NOTE | 2018-02-09 13:17 | PN ---
PROGRESS NOTE This patient is status post coronary artery bypass surgery. The patient has acute respiratory failure, possibly secondary to acute lung injury. Patient also has left lower lobe atelectasis. The patient has spiked temperature to 100.4. The patient remains intubated and he is on high PEEP blood pressure is 134/72 mmHg. Respiratory rate is 28. First and second heart sounds are heard. Lungs reveal bilateral scattered wheezes. Blood gases shows a pH of 7.37, pCO2 of 43, pO2 is . White count is 32,000. ASSESSMENT AND PLAN: This patient is status post coronary artery bypass surgery with acute respiratory failure. The patient continues to be on ventilatory support and possibly may be developing pneumonia. Overall, the patient's prognosis is guarded. The patient's blood pressure remains labile, but otherwise patient is stable cardiac aguirre. MMODL / IJN: [id number] /
[2018-02-09 14:20] LABS: ABG HCO3 24 mmol/L (21-25); ABG PCO2 45 mmHg (35-45); ABG PH 7.36 (7.35-7.45); ABG PO2 108 mmHg (83-108)
[2018-02-09 14:21] LABS: ABG Base Excess -0.6 mmol/L
[2018-02-09 16:13] LABS: Glucose,Whole Blood 121 mg/dL (75-99)
[2018-02-09] MEDS: HYDROmorphone 1 MG/ML 1 ML SYRINGE IVP PRN ×2 (17:29→20:46)
[2018-02-09 17:46] LABS: ABG Base Excess 1.4 mmol/L; ABG HCO3 26 mmol/L (21-25); ABG Oxygen Saturation 92.5 % (94-97); ABG PCO2 46 mmHg (35-45); ABG PH 7.37 (7.35-7.45); ABG PO2 68 mmHg (83-108)
[2018-02-09 20:04] LABS: Glucose,Whole Blood 113 mg/dL (75-99)
[2018-02-09] MEDS: SENNOSIDES-DOCUSATE SODIUM 1 EACH TAB PO SCH (20:51)
[2018-02-09] MEDS: INSULIN DETEMIR 100 UNIT/ML 10 ML VIAL SQ SCH (20:53)
--- NOTE | 2018-02-09 21:24 | XR ---
EXAMINATION TYPE: XR chest 1V portable DATE OF EXAM: 02/09/2018 COMPARISON: Prior chest 02/09/2018 and earlier time HISTORY: Intubation TECHNIQUE: Single frontal view of the chest is obtained. FINDINGS: Endotracheal tube, Dobbhoff tube, left-sided PICC line are overlying appropriate positions . Patient is rotated. No evident pneumothorax. Retrocardiac density persists. Patient is post median sternotomy. IMPRESSION: Findings are similar to prior exam. Left lower lobe atelectasis versus pneumonia and ass ociated effusion.
[2018-02-09 21:25] LABS: ABG Base Excess 0.8 mmol/L; ABG HCO3 27 mmol/L (21-25); ABG Oxygen Saturation 95.1 % (94-97); ABG PCO2 50 mmHg (35-45); ABG PH 7.34 (7.35-7.45); ABG PO2 70 mmHg (83-108)
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
[2018-02-09 23:52] LABS: Glucose,Whole Blood 131 mg/dL (75-99)
[2018-02-10 00:12] LABS: ABG Base Excess -0.8 mmol/L; ABG HCO3 25 mmol/L (21-25); ABG PCO2 49 mmHg (35-45); ABG PH 7.33 (7.35-7.45); ABG PO2 159 mmHg (83-108)
[2018-02-10] MEDS: IPRATROPIUM-ALBUTEROL 3 ML NEB INHALATION SCH ×6 (00:14→19:51)
[2018-02-10] MEDS: PROPOFOL 1,000 MG in EMPTY BAG 1 BAG IV SCH ×7 (00:46→20:37)
[2018-02-10] MEDS: CLEVIDIPINE BUTYRATE 25 MG in EMPTY BAG 1 BAG IV SCH ×4 (00:47→09:30)
[2018-02-10 04:00] LABS: Glucose,Whole Blood 120 mg/dL (75-99)
[2018-02-10 04:24] LABS: HCT 35.8 % (39.0-53.0); HGB 11.2 gm/dL (13.0-17.5); Hypochromasia Slight; MCH 30.9 pg (25.0-35.0); MCHC 31.3 g/dL (31.0-37.0); MCV 98.8 fL (80.0-100.0); Mean Platelet Volume 7.1; Platelet Count 413 k/uL (150-450); RBC 3.62 m/uL (4.30-5.90); RDW 14.4 % (11.5-15.5); WBC 34.4 k/uL (3.8-10.6)
[2018-02-10 04:33] LABS: ABG Base Excess -0.1 mmol/L; ABG HCO3 26 mmol/L (21-25); ABG PCO2 54 mmHg (35-45); ABG PH 7.31 (7.35-7.45); ABG PO2 89 mmHg (83-108)
[2018-02-10 04:33] LABS: ALT 77 U/L (21-72); AST 49 U/L (17-59); Albumin 3.2 g/dL (3.5-5.0); Alkaline Phosphatase 54 U/L (38-126); Anion Gap 7 mmol/L; Blood Urea Nitrogen 41 mg/dL (9-20); Calcium 8.8 mg/dL (8.4-10.2); Carbon Dioxide 26 mmol/L (22-30); Chloride 110 mmol/L (98-107); Glucose 125 mg/dL (74-99); Potassium 5.9 mmol/L (3.5-5.1); Sodium 143 mmol/L (137-145); Total Bilirubin 0.5 mg/dL (0.2-1.3)
[2018-02-10 05:53] LABS: Band Neutrophils % 3 %; Eosinophils # (M) 2.06 k/uL (0-0.7); Lymphocytes # (M) 3.44 k/uL (1.0-4.8); Neutrophils % (M) 72 %; Nucleated Red Blood Cells 0 /100 WBC (0-0); Total Cells Counted 100
[2018-02-10] MEDS: INSULIN ASPART 100 UNIT/ML 1 ML 10 ML VIAL SQ SCH ×5 (06:16→20:32)
[2018-02-10] MEDS: ARTIFICIAL TEARS-HYPROMELLOSE DROPS 15 ML BTL BOTH EYES SCH ×5 (06:16→20:32)
[2018-02-10] MEDS: BUDESONIDE 1 MG/2 ML NEBU INHALATION SCH ×2 (07:34→19:51)
[2018-02-10] MEDS: FORMOTEROL FUMARATE 20 MCG/2 ML NEBU INHALATION SCH ×2 (07:34→19:51)
[2018-02-10 08:02] LABS: Glucose,Whole Blood 121 mg/dL (75-99)
[2018-02-10] MEDS: CHLORHEXIDINE GLUCONATE 15 ML CUP MUCOUS MEM SCH ×2 (08:15→20:33)
[2018-02-10] MEDS: METOPROLOL TARTRATE 50 MG TAB PO SCH ×2 (08:15→20:34)
[2018-02-10] MEDS: ASPIRIN 325 MG TAB PO SCH (08:16)
[2018-02-10] MEDS: LISINOPRIL 2.5 MG TAB PO SCH ×2 (08:16→20:34)
[2018-02-10] MEDS: CLOPIDOGREL 75 MG TAB PO SCH (08:16)
[2018-02-10] MEDS: ATORVASTATIN 40 MG TAB PO SCH (08:16)
[2018-02-10] MEDS: MEROPENEM 1 GM in SODIUM CHLORIDE 0.9% 100 ML IVPB SCH ×2 (08:16→16:56)
[2018-02-10] MEDS: HEPARIN SODIUM,PORCINE 5,000 UNIT/ML 1 ML VIAL SQ SCH ×2 (08:18→17:01)
[2018-02-10] MEDS: PANTOPRAZOLE 40 MG/10 ML VIAL IVP SCH (08:18)
--- NOTE | 2018-02-10 08:25 | XR ---
EXAMINATION TYPE: XR chest 1V portable DATE OF EXAM: 02/10/2018 COMPARISON: 02/09/2018 HISTORY: Shortness of breath TECHNIQUE: Single frontal view of the chest is obtained. FINDINGS: ET tube and feeding tube stable. Left lower lobe consolidation and pleural effusion unchan ged. Right lung remains clear. Heart size stable. Postsurgical changes are seen. No pneumothorax. IMPRESSION: Stable left lower lobe infiltrate and pleural effusion.
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
[2018-02-10 11:02] LABS: ABG Base Excess 0.7 mmol/L; ABG HCO3 27 mmol/L (21-25); ABG Oxygen Saturation 96.2 % (94-97); ABG PCO2 55 mmHg (35-45); ABG PH 7.31 (7.35-7.45); ABG PO2 86 mmHg (83-108)
--- NOTE | 2018-02-10 11:24 | PN ---
PROGRESS NOTE This patient's medical records and lab tests and hemodynamics over the last 24 hours reviewed. The patient's condition remains critical. Chest x-ray shows left lower lobe pneumonia, atelectasis. He underwent a bronchoscopic examination earlier today. The patient's heart rate is 89. Blood pressure is fluctuating, but currently his blood pressure is 130/63 mmHg. First and second heart sounds are heard. Lungs reveal bilateral diminished air entry. Amlodipine 5 mg is added. The patient is on Plavix, aspirin as well Lopressor 100 mg b.i.d. Patient's potassium was 5.9, which is difficult to explain, but lisinopril is discontinued. MMODL / IJN: [id number] /
[2018-02-10] MEDS: DEXTROSE 5%-0.45% NACL 1,000 ML IV SCH (11:52)
[2018-02-10] MEDS: amLODIPine 5 MG TAB PO SCH (11:55)
[2018-02-10 12:18] LABS: Glucose,Whole Blood 128 mg/dL (75-99)
--- NOTE | 2018-02-10 13:11 | P.PN ---
Subjective Progress Note Date: 02/10/18 This 42-year-old male patient is postop day #9 following his 2 vessel bypass surgery, off pump. Postop, the patient has been still intubated on mechanical ventilator due to complications of ARDS. On today's evaluation, I find this patient sedated with Diprivan and currently is on 50 mics of Diprivan for sedation. He is also paralyzed with Nimbex. He is calm and comfortable and synchronous with the mechanical ventilator. Earlier this morning he was an assist-control mode of ventilation with a tidal volume of 450, FiO2 of 50% with a PEEP of 13 and a respiratory rate of 34. He was on a I:E ratio of 1.2-1 and his inspiratory time was at 1.0 seconds. He had a blood gases earlier this morning that showed a pH of 7.42 with a pCO2 of 39 and pO2 of 77 and this was done earlier this morning and FiO2 of 50%. His chest x-ray showed a left lower lobe consolidation and ET tube was in a good location with diffuse groundglass changes throughout the lung hahn bilaterally consistent with ARDS. On examination, he had bilateral rhonchi and some limited expiratory wheeze. He underwent a bronchoscopy yesterday and the bronchioloalveolar lavage from left lower lobe is still pending for now and there is no microbial growth. However, there was copious amount of rest or secretions based on the operative report and the patient is running a low-grade fever with a T-max of 11.4. Based on all this, I left lower lobe pneumonia was suspected and I started this patient on IV meropenem. IV Zosyn on consult. Despite all this, he is hemodynamically stable. He is in a sinus rhythm. Sternum is stable clean and intact. No chest tubes are in place and all of the chest tubes have been removed. The neck fluid balance is 375 mL negative over the past 24 hours. He is on no pressors. He is tolerating his tube feedings which is in the form of vital at 30 mL an hour. Is producing adequate urine output. No other significant events overnight. His white cell count has been persistently elevated and remains elevated at 32.3. Hemoglobin stable at 12.1. On today's evaluation of 02/10/2018, the patient is postop day #10. The patient remains intubated on a mechanical ventilator. The patient is sedated and paralyzed. We are still having difficulties with oxygenation nontender the patient had developed post surgical ARDS and subsequently there is an indication of a left lower lobe pneumonia. The patient had a follow-up chest x- ray today that showed worsening in the consolidation of the left lower lobe. Earlier this morning, he was assist-control mode of ventilation at a PEEP of 14 , FiO2 of 80%, respiratory rate of 26 and tidal volume of 450. The morning. The peak air pressures around 33. His blood gases from today showed a pH of 7.31 with a pCO2 of 55 and pO2 of 86. Chest x-ray shows a dense consolidation and some volume loss in the left lower lobe. Based on this, I performed a bronchoscopy on this patient. Copious amount of purulent respiratory secretions was suctioned out from the left lower lobe and the amount was estimated to be around 30 mL of purulent material. I also performed segmental bronchial washings of the left lower lobe. The cultures will be sent. I started covering this patient with IV antibiotics and I put him on IV Merrem. This morning, he is afebrile however overnight he was spiking temperature of 100.0 with a T-max of 101.3. His white cell count is up to 34,000. Platelet counts are within normal limits. Hemodynamically stable on no pressors. Tolerating tube feeds. As mentioned, all of the chest tubes have been removed. Objective - Vital Signs Vital signs: Vital Signs Temp 99 F 02/10/18 12:00 Pulse 100 02/10/18 12:00 Resp 34 H 02/10/18 12:00 BP 132/76 02/10/18 12:00 Pulse Ox 95 02/10/18 12:00 Intake & Output 02/09/18 02/10/18 02/10/18 18:59 06:59 18:59 Intake Total 7113.491 9348.006 789.893 Output Total 1375 1145 805 Balance 580.066 606.006 -15.107 Weight 99.5 kg 101.2 kg Intake: IV 36 36 188 Dextrose 5%-0.45% NaCl 1, 170 000 ml @ 30 mls/hr IV . Q24H [facility] Rx#:[id number] Pressure Bag 36 36 18 Intake, IV Titration 0065.090 9054.006 481.893 Amount Cisatracurium 200 mg In 133.466 199.271 200 Sodium Chloride 0.9% 180 ml @ 1 MCG/KG/MIN 6.37 mls/hr IV .Q24H [facility] Rx#: [id number] Clevidipine Butyrate 25 79.600 126.934 49.733 mg In Empty Bag 1 bag @ 1 MG/HR 2 mls/hr IV .Q24H [facility] Rx#:[id number] Dextrose 5%-0.45% NaCl 1, 600 600 50 000 ml @ 30 mls/hr IV . Q24H [facility] Rx#:[id number] Meropenem 1 gm In Sodium 200 100 Chloride 0.9% 100 ml @ 200 mls/hr IVPB Q8HR [facility] Rx#:[id number] Propofol 1,000 mg In 400 338.801 182.16 Empty Bag 1 bag @ Titrate IV .Q0M [facility] Rx#: [id number] Tube Feeding 366 320 120 Other 140 30 Output: Urine 1375 1145 805 Other: Voiding Method Indwelling Catheter Indwelling Catheter Indwelling Catheter ABP, PAP, CO, CI - Last Documented Arterial Blood Pressure 113/62 Pulmonary Artery Pressure 36/26 Cardiac Output 6.4 Cardiac Index 2.9 - Exam Intubated on mechanical ventilator sedated and paralyzed, comfortable. Orogastric and nasal Dobbhoff are both in place. Head exam was generally normal. There was no scleral icterus or corneal arcus. Mucous membranes were moist. Neck was supple and without jugular venous distension, thyromegaly, or carotid bruits. Carotids were easily palpable bilaterally. There was no adenopathy. Lungs sounds are diminished and there is some scattered rhonchi heard throughout the lung hahn bilaterally and some scattered expiratory wheezes. Sternum stable clean and intact. On today's evaluation there is marked diminished in the breast on the left base compared to the right. Cardiac exam revealed the PMI to be normally situated and sized. The rhythm was regular and no extrasystoles were noted during several minutes of auscultation. The first and second heart sounds were normal and physiologic splitting of the second heart sound was noted. There were no murmurs, rubs, clicks, or gallops. The patient is in sinus tachycardia. Abdominal exam revealed normal bowel sounds. The abdomen was soft, non-tender, and without masses, organomegaly, or appreciable enlargement of the abdominal aorta. Examination of the extremities revealed easily palpable radial, femoral and pedal pulses. There was no cyanosis, clubbing or edema. Examination of the skin revealed no evidence of significant rashes, suspicious appearing nevi or other concerning lesions. Sternum stable clean and intact Neurologically the patient is sedated and paralyzed. - Labs CBC & Chem 7: 02/10/18 04:10 02/10/18 04:10 Labs: Abnormal Lab Results - Last 24 Hours (Table) 02/09/18 02/09/18 02/09/18 Range/Units 16:01 17:40 19:53 WBC (3.8-10.6) k/uL RBC (4.30-5.90) m/uL Hgb (13.0-17.5) gm/dL Hct (39.0-53.0) % Neutrophils # (Manual) (1.3-7.7) k/uL Monocytes # (Manual) (0-1.0) k/uL Eosinophils # (Manual) (0-0.7) k/uL ABG pH (7.35-7.45) ABG pCO2 46 H (35-45) mmHg ABG pO2 68 L (83-108) mmHg ABG HCO3 26 H (21-25) mmol/L ABG O2 Saturation 92.5 L (94-97) % Potassium (3.5-5.1) mmol/L Chloride (98-107) mmol/L BUN (9-20) mg/dL Glucose (74-99) mg/dL POC Glucose (mg/dL) 121 H 113 H (75-99) mg/dL Magnesium (1.6-2.3) mg/dL ALT (21-72) U/L Total Protein (6.3-8.2) g/dL Albumin (3.5-5.0) g/dL 02/09/18 02/09/18 02/09/18 Range/Units 21:16 23:41 23:53 WBC (3.8-10.6) k/uL RBC (4.30-5.90) m/uL Hgb (13.0-17.5) gm/dL Hct (39.0-53.0) % Neutrophils # (Manual) (1.3-7.7) k/uL Monocytes # (Manual) (0-1.0) k/uL Eosinophils # (Manual) (0-0.7) k/uL ABG pH 7.34 L 7.33 L (7.35-7.45) ABG pCO2 50 H 49 H (35-45) mmHg ABG pO2 70 L 159 H (83-108) mmHg ABG HCO3 27 H (21-25) mmol/L ABG O2 Saturation 99.0 H (94-97) % Potassium (3.5-5.1) mmol/L Chloride (98-107) mmol/L BUN (9-20) mg/dL Glucose (74-99) mg/dL POC Glucose (mg/dL) 131 H (75-99) mg/dL Magnesium (1.6-2.3) mg/dL ALT (21-72) U/L Total Protein (6.3-8.2) g/dL Albumin (3.5-5.0) g/dL 02/10/18 02/10/18 02/10/18 Range/Units 03:57 04:05 04:10 WBC 34.4 H (3.8-10.6) k/uL RBC 3.62 L (4.30-5.90) m/uL Hgb 11.2 L (13.0-17.5) gm/dL Hct 35.8 L (39.0-53.0) % Neutrophils # (Manual) 25.80 H (1.3-7.7) k/uL Monocytes # (Manual) 3.10 H (0-1.0) k/uL Eosinophils # (Manual) 2.06 H (0-0.7) k/uL ABG pH 7.31 L (7.35-7.45) ABG pCO2 54 H (35-45) mmHg ABG pO2 (83-108) mmHg ABG HCO3 26 H (21-25) mmol/L ABG O2 Saturation (94-97) % Potassium (3.5-5.1) mmol/L Chloride (98-107) mmol/L BUN (9-20) mg/dL Glucose (74-99) mg/dL POC Glucose (mg/dL) 120 H (75-99) mg/dL Magnesium (1.6-2.3) mg/dL ALT (21-72) U/L Total Protein (6.3-8.2) g/dL Albumin (3.5-5.0) g/dL 02/10/18 02/10/18 02/10/18 Range/Units 04:10 08:00 10:45 WBC (3.8-10.6) k/uL RBC (4.30-5.90) m/uL Hgb (13.0-17.5) gm/dL Hct (39.0-53.0) % Neutrophils # (Manual) (1.3-7.7) k/uL Monocytes # (Manual) (0-1.0) k/uL Eosinophils # (Manual) (0-0.7) k/uL ABG pH 7.31 L (7.35-7.45) ABG pCO2 55 H (35-45) mmHg ABG pO2 (83-108) mmHg ABG HCO3 27 H (21-25) mmol/L ABG O2 Saturation (94-97) % Potassium 5.9 H (3.5-5.1) mmol/L Chloride 110 H (98-107) mmol/L BUN 41 H (9-20) mg/dL Glucose 125 H (74-99) mg/dL POC Glucose (mg/dL) 121 H (75-99) mg/dL Magnesium 3.0 H (1.6-2.3) mg/dL ALT 77 H (21-72) U/L Total Protein 6.0 L (6.3-8.2) g/dL Albumin 3.2 L (3.5-5.0) g/dL 02/10/18 Range/Units 11:52 WBC (3.8-10.6) k/uL RBC (4.30-5.90) m/uL Hgb (13.0-17.5) gm/dL Hct (39.0-53.0) % Neutrophils # (Manual) (1.3-7.7) k/uL Monocytes # (Manual) (0-1.0) k/uL Eosinophils # (Manual) (0-0.7) k/uL ABG pH (7.35-7.45) ABG pCO2 (35-45) mmHg ABG pO2 (83-108) mmHg ABG HCO3 (21-25) mmol/L ABG O2 Saturation (94-97) % Potassium (3.5-5.1) mmol/L Chloride (98-107) mmol/L BUN (9-20) mg/dL Glucose (74-99) mg/dL POC Glucose (mg/dL) 128 H (75-99) mg/dL Magnesium (1.6-2.3) mg/dL ALT (21-72) U/L Total Protein (6.3-8.2) g/dL Albumin (3.5-5.0) g/dL Microbiology - Last 24 Hours (Table) 02/08/18 17:50 Blood Culture - Preliminary Blood No Growth after 24 hours 02/08/18 10:50 Gram Stain - Preliminary Bronchial Washings - Left Bronchial Washings Culture - Preliminary 02/06/18 12:00 Blood Culture - Preliminary Blood No Growth after 72 hours 02/08/18 22:45 Urine Culture - Preliminary Urine,Catheterized 02/06/18 22:05 Gram Stain - Final Sputum Sputum Culture - Final Beta Hemolytic Strep Group C Assessment and Plan Plan: Assessment 1 coronary artery bypass surgery and the patient is postop day #9, status post off-pump 2 vessel bypass surgery 2 postoperative ARDS, remains intubated on mechanical ventilator. The patient was not extubated since his surgery. In addition he has developed left lower lobe pneumonia post bronchoscopy and removal of mucous plugs 3 left lower lobe pneumonia, post repeated bronchoscopy and removal of copious amount of mucous with some left lower lobe. There is a previous sputum analysis that showed Strep Group C 4 low-grade fever, episodic 5 history of left lower lobe atelectasis/collapse post bronchoscopy and removal of mucous plugs 6 COPD 7 sinus tachycardia 8 enteral feeding via Dobbhoff for nutritional support 9 chronic leukocytosis Plan The patient will be kept sedated and paralyzed. The bronchoscopy was done and the patient patient was found to have copious amount of purulent blister secretions left lower lobe. Currently on IV Merrem. Continue same antibiotic coverage. May need another bronchoscopy with next 34 hours based on his overall critical response and oxygenation status. We'll given a paralytic holiday. Continue sedation. Continue enteral feeding for nutritional support. Unable to wean him any further on today's evaluation based on his pneumonia and underlying ARDS. We'll continue to follow. I will also suggest to put him back on IV Solu-Medrol which is beneficial for pneumonia and ARDS. We'll continue to follow. Further care evaluation that was done and more than 30 minutes excluding time to do any procedures. Time with Patient: Greater than 30
--- NOTE | 2018-02-10 14:16 | PCN ---
PROCEDURE NOTE PROCEDURE NOTE: Bronchoscopy. PREOPERATIVE DIAGNOSIS: Left lower lobe pneumonia/ARDS. POSTOPERATIVE DIAGNOSIS: Left lower lobe pneumonia/ARDS. This procedure was done in the intensive care unit. The patient was already sedated and paralyzed. An adapter was attached to the orotracheal tube. Following that, a flexible bronchoscope was advanced through the orotracheal tube into the lower trachea. The tip of the orotracheal tube was seen around 2 cm above the gretel. Examination of the right that included the right mainstem bronchus, right upper and right lower lobe bronchus and all of his upper airway structures within normal limits. Examination of left side included the left upper lobe and the left lower lobe. There was a copious amount of respiratory secretions plugging the left lower lobe bronchus and the secretions were approaching the distal left mainstem bronchus. Therapeutic airway suctioning was done. A total of 33 purulent material was aspirated from the left lower lobe. The secretions were occupying the majority of all of the segments including the anterior, lateral, posterior and superior segment. There was some respiratory secretions in the left upper lobe. They were also suctioned out. Segmental bronchial washing was done. Bronchoalveolar lavage of the left lower lobe was done and appropriate samples were collected. At the end of the procedure, the airways were free of any respiratory secretions and the patient's segments in the left lower lobe were quite patent. The bronchoscope was removed and the procedure was terminated and samples were sent for cultures. MMODL / IJN: [id number] /
[2018-02-10 15:59] LABS: Anion Gap 3 mmol/L; Blood Urea Nitrogen 44 mg/dL (9-20); Calcium 8.7 mg/dL (8.4-10.2); Carbon Dioxide 28 mmol/L (22-30); Chloride 112 mmol/L (98-107); Glucose 123 mg/dL (74-99); Sodium 143 mmol/L (137-145)
[2018-02-10] MEDS ORDERED: INSULIN REGULAR 100 UNIT/ML VIAL IV ONE (16:14)
[2018-02-10] MEDS ORDERED: DEXTROSE 50%-WATER 50 ML SYRINGE IVP STA (16:14)
[2018-02-10] MEDS: methylPREDNISolone SOD SUCCI 40 MG/ML 1 ML VIAL IV SCH (16:56)
[2018-02-10 17:10] LABS: Glucose,Whole Blood 110 mg/dL (75-99)
[2018-02-10 20:25] LABS: Glucose,Whole Blood 141 mg/dL (75-99)
[2018-02-10] MEDS: ACETAMINOPHEN TAB 500 MG TAB PO PRN (20:32)
[2018-02-10] MEDS: INSULIN DETEMIR 100 UNIT/ML 10 ML VIAL SQ SCH (20:33)
[2018-02-10] MEDS: HYDROmorphone 1 MG/ML 1 ML SYRINGE IVP PRN (20:48)
[2018-02-10] MEDS ORDERED: VANCOMYCIN IV PER PHARMACY 1 EACH MISC MISCELLANE PRN (23:05)
[2018-02-10 23:58] LABS: Glucose,Whole Blood 157 mg/dL (75-99)
[2018-02-11] MEDS ORDERED: VANCOMYCIN 2,000 MG in SODIUM CHLORIDE 0.9% 500 ML 500 ML IVPB ONE ×2
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
[2018-02-11] MEDS: PROPOFOL 1,000 MG in EMPTY BAG 1 BAG IV SCH ×7 (00:38→22:18)
[2018-02-11] MEDS: methylPREDNISolone SOD SUCCI 40 MG/ML 1 ML VIAL IV SCH ×4 (00:49→23:32)
[2018-02-11] MEDS: INSULIN ASPART 100 UNIT/ML 1 ML 10 ML VIAL SQ SCH ×7 (00:50→23:35)
[2018-02-11] MEDS: HEPARIN SODIUM,PORCINE 5,000 UNIT/ML 1 ML VIAL SQ SCH ×4 (00:50→23:32)
[2018-02-11] MEDS: MEROPENEM 1 GM in SODIUM CHLORIDE 0.9% 100 ML IVPB SCH ×4 (00:50→23:32)
[2018-02-11] MEDS: ARTIFICIAL TEARS-HYPROMELLOSE DROPS 15 ML BTL BOTH EYES SCH ×7 (00:55→23:31)
[2018-02-11] MEDS: IPRATROPIUM-ALBUTEROL 3 ML NEB INHALATION SCH ×7 (01:57→23:21)
[2018-02-11 04:38] LABS: Glucose,Whole Blood 171 mg/dL (75-99)
[2018-02-11] MEDS: HYDROmorphone 1 MG/ML 1 ML SYRINGE IVP PRN ×3 (05:00→20:57)
[2018-02-11 05:28] LABS: ALT 65 U/L (21-72); AST 29 U/L (17-59); Alkaline Phosphatase 57 U/L (38-126); Anion Gap 6 mmol/L; Blood Urea Nitrogen 48 mg/dL (9-20); Calcium 9.1 mg/dL (8.4-10.2); Carbon Dioxide 24 mmol/L (22-30); Chloride 111 mmol/L (98-107); Glucose 165 mg/dL (74-99); Phosphorus 4.1 mg/dL (2.5-4.5); Potassium 5.6 mmol/L (3.5-5.1); Sodium 141 mmol/L (137-145); Total Bilirubin 0.4 mg/dL (0.2-1.3); Total Protein 5.8 g/dL (6.3-8.2)
[2018-02-11 05:32] LABS: ABG Base Excess 1.3 mmol/L; ABG HCO3 26 mmol/L (21-25); ABG Oxygen Saturation 98.5 % (94-97); ABG PCO2 42 mmHg (35-45); ABG PO2 101 mmHg (83-108); ABG TCO2 27 mmol/L (19-24)
[2018-02-11 05:46] LABS: Basophils # (A) 0.1 k/uL (0-0.2); Basophils % (A) 0 %; Eosinophils % (A) 0 %; HCT 31.8 % (39.0-53.0); HGB 9.9 gm/dL (13.0-17.5); Lymphocytes # (A) 1.6 k/uL (1.0-4.8); Lymphocytes % (A) 5 %; MCH 30.4 pg (25.0-35.0); MCHC 31.1 g/dL (31.0-37.0); MCV 97.7 fL (80.0-100.0); Mean Platelet Volume 7.7; Monocytes # (A) 1.4 k/uL (0-1.0); Monocytes % (A) 5 %; Neutrophils # (A) 27.3 k/uL (1.3-7.7); Neutrophils % (A) 89 %; Platelet Count 463 k/uL (150-450); RBC 3.25 m/uL (4.30-5.90); RDW 14.1 % (11.5-15.5); WBC 30.7 k/uL (3.8-10.6)
[2018-02-11] MEDS: BUDESONIDE 1 MG/2 ML NEBU INHALATION SCH ×2 (07:36→19:00)
[2018-02-11] MEDS: FORMOTEROL FUMARATE 20 MCG/2 ML NEBU INHALATION SCH ×2 (07:36→19:00)
--- NOTE | 2018-02-11 07:50 | XR ---
EXAMINATION TYPE: XR chest 1V portable DATE OF EXAM: 02/11/2018 COMPARISON: 02/10/2018 INDICATION: Post cardiac surgery TECHNIQUE: Single frontal view of the chest is obtained. FINDINGS: The heart size is upper limits of normal. The pulmonary vasculature is normal. The lungs are clear. Endotracheal tube is present with the tip at approximately the T2 level, well above the gretel. Left PICC line is present with the tip in the superior vena cava region. EKG leads overlie the chest. A Do bbhoff tube appears to be present. IMPRESSION: 1. Resolution previous left base infiltrate. 2. Lines and catheters discussed above.
[2018-02-11 07:54] LABS: Glucose,Whole Blood 160 mg/dL (75-99)
[2018-02-11] MEDS: PANTOPRAZOLE 40 MG/10 ML VIAL IVP SCH (08:25)
[2018-02-11] MEDS: CHLORHEXIDINE GLUCONATE 15 ML CUP MUCOUS MEM SCH ×2 (08:25→20:55)
[2018-02-11] MEDS: ASPIRIN 325 MG TAB PO SCH (08:29)
[2018-02-11] MEDS: ATORVASTATIN 40 MG TAB PO SCH (08:29)
[2018-02-11] MEDS: CLOPIDOGREL 75 MG TAB PO SCH (08:29)
[2018-02-11] MEDS: METOPROLOL TARTRATE 50 MG TAB PO SCH ×2 (08:29→20:56)
[2018-02-11] MEDS ORDERED: VANCOMYCIN IV PER PHARMACY 1 EACH MISC MISCELLANE SCH (09:30)
--- NOTE | 2018-02-11 09:32 | P.PN ---
Subjective Progress Note Date: 02/11/18 This 42-year-old male patient is postop day #9 following his 2 vessel bypass surgery, off pump. Postop, the patient has been still intubated on mechanical ventilator due to complications of ARDS. On today's evaluation, I find this patient sedated with Diprivan and currently is on 50 mics of Diprivan for sedation. He is also paralyzed with Nimbex. He is calm and comfortable and synchronous with the mechanical ventilator. Earlier this morning he was an assist-control mode of ventilation with a tidal volume of 450, FiO2 of 50% with a PEEP of 13 and a respiratory rate of 34. He was on a I:E ratio of 1.2-1 and his inspiratory time was at 1.0 seconds. He had a blood gases earlier this morning that showed a pH of 7.42 with a pCO2 of 39 and pO2 of 77 and this was done earlier this morning and FiO2 of 50%. His chest x-ray showed a left lower lobe consolidation and ET tube was in a good location with diffuse groundglass changes throughout the lung hahn bilaterally consistent with ARDS. On examination, he had bilateral rhonchi and some limited expiratory wheeze. He underwent a bronchoscopy yesterday and the bronchioloalveolar lavage from left lower lobe is still pending for now and there is no microbial growth. However, there was copious amount of rest or secretions based on the operative report and the patient is running a low-grade fever with a T-max of 11.4. Based on all this, I left lower lobe pneumonia was suspected and I started this patient on IV meropenem. IV Zosyn on consult. Despite all this, he is hemodynamically stable. He is in a sinus rhythm. Sternum is stable clean and intact. No chest tubes are in place and all of the chest tubes have been removed. The neck fluid balance is 375 mL negative over the past 24 hours. He is on no pressors. He is tolerating his tube feedings which is in the form of vital at 30 mL an hour. Is producing adequate urine output. No other significant events overnight. His white cell count has been persistently elevated and remains elevated at 32.3. Hemoglobin stable at 12.1. On today's evaluation of 02/10/2018, the patient is postop day #10. The patient remains intubated on a mechanical ventilator. The patient is sedated and paralyzed. We are still having difficulties with oxygenation nontender the patient had developed post surgical ARDS and subsequently there is an indication of a left lower lobe pneumonia. The patient had a follow-up chest x- ray today that showed worsening in the consolidation of the left lower lobe. Earlier this morning, he was assist-control mode of ventilation at a PEEP of 14 , FiO2 of 80%, respiratory rate of 26 and tidal volume of 450. The morning. The peak air pressures around 33. His blood gases from today showed a pH of 7.31 with a pCO2 of 55 and pO2 of 86. Chest x-ray shows a dense consolidation and some volume loss in the left lower lobe. Based on this, I performed a bronchoscopy on this patient. Copious amount of purulent respiratory secretions was suctioned out from the left lower lobe and the amount was estimated to be around 30 mL of purulent material. I also performed segmental bronchial washings of the left lower lobe. The cultures will be sent. I started covering this patient with IV antibiotics and I put him on IV Merrem. This morning, he is afebrile however overnight he was spiking temperature of 100.0 with a T-max of 101.3. His white cell count is up to 34,000. Platelet counts are within normal limits. Hemodynamically stable on no pressors. Tolerating tube feeds. As mentioned, all of the chest tubes have been removed. On 02/11/2018 the patient is postop day #11. I performed a bronchoscopy on this patient yesterday and copious amount of purulent respiratory secretions were suctioned out from the patient's left lower lobe. Limited cultures indicating gram-positive cocci. There is also gram-positive cocci in the blood. We suspected the patient had a left lower lobe pneumonia with secondary septicemia. The patient is currently on Merrem and dose of vancomycin was given overnight. Overall oxidation improved following the bronchoscopy. This morning, the patient is on a tidal volume of 450, rate of 26, FiO2 of 40% to 14. Peak airway pressures around 31 with metastatic impression from 20. Blood gases from this morning showed a pH of 7.4 with a pCO2 of 42 and pO2 of 11. Chest x-ray shows improvement in the expression of the left lower lobe. Based on all this, I dropped down the PEEP to 12. Hemodynamically stable. He is in a normal sinus rhythm. Is producing adequate amount of urine output. White cell count remains elevated at 50.7 although somewhat improved compared to yesterday. Renal function is stable. The patient is currently afebrile. He is tolerating his tube feeds. Having regular bowel movements. His last temperature spike of 11.4 was from yesterday evening. No other significant events overnight. He is quite sedated on Diprivan at 50 mics. He was given a sedation holiday yesterday and he arouse and he was slightly agitated but cannot orotracheal tube and based on that he was placed back on sedation. Objective - Vital Signs Vital signs: Vital Signs Temp 98.8 F 02/11/18 08:00 Pulse 75 02/11/18 08:00 Resp 26 H 02/11/18 08:00 BP 96/59 02/11/18 08:00 Pulse Ox 95 02/11/18 08:00 Intake & Output 02/10/18 02/11/18 02/11/18 18:59 06:59 18:59 Intake Total 9066.768 1419 339 Output Total 1435 1179 275 Balance -220.107 434 64 Weight 102.4 kg Intake: IV 353 1003 129 Dextrose 5%-0.45% NaCl 1, 320 330 90 000 ml @ 30 mls/hr IV . Q24H [facility] Rx#:[id number] Meropenem 1 gm In Sodium 100 Chloride 0.9% 100 ml @ 200 mls/hr IVPB Q8HR [facility] Rx#:[id number] NS 40 30 Pressure Bag 33 33 9 Vancomycin 2,000 mg In 500 Sodium Chloride 0.9% 500 ml 500 ml @ 167 mls/hr IVPB ONCE ONE Rx#: [id number] Intake, IV Titration 581.893 300 100 Amount Cisatracurium 200 mg In 200 Sodium Chloride 0.9% 180 ml @ 1 MCG/KG/MIN 6.37 mls/hr IV .Q24H [facility] Rx#: [id number] Clevidipine Butyrate 25 49.733 mg In Empty Bag 1 bag @ 1 MG/HR 2 mls/hr IV .Q24H [facility] Rx#:[id number] Dextrose 5%-0.45% NaCl 1, 50 000 ml @ 30 mls/hr IV . Q24H [facility] Rx#:[id number] Propofol 1,000 mg In 282.16 300 100 Empty Bag 1 bag @ Titrate IV .Q0M [facility] Rx#: [id number] Oral 120 Tube Feeding 160 220 80 Other 90 30 Output: Urine 1435 1179 275 Other: Voiding Method Indwelling Catheter Indwelling Catheter ABP, PAP, CO, CI - Last Documented Arterial Blood Pressure 103/56 Pulmonary Artery Pressure 36/26 Cardiac Output 6.4 Cardiac Index 2.9 - Exam Intubated on mechanical ventilator sedated and he is off paralysis , comfortable. Orogastric and nasal Dobbhoff are both in place. Head exam was generally normal. There was no scleral icterus or corneal arcus. Mucous membranes were moist. Neck was supple and without jugular venous distension, thyromegaly, or carotid bruits. Carotids were easily palpable bilaterally. There was no adenopathy. Lungs sounds are diminished and there is improvement in the breast on the left lung base compared to yesterday's examination. No significant rhonchi or any wheezing on today's evaluation. Cardiac exam revealed the PMI to be normally situated and sized. The rhythm was regular and no extrasystoles were noted during several minutes of auscultation. The first and second heart sounds were normal and physiologic splitting of the second heart sound was noted. There were no murmurs, rubs, clicks, or gallops. The patient is in sinus tachycardia. Abdominal exam revealed normal bowel sounds. The abdomen was soft, non-tender, and without masses, organomegaly, or appreciable enlargement of the abdominal aorta. Examination of the extremities revealed easily palpable radial, femoral and pedal pulses. There was no cyanosis, clubbing or edema. Examination of the skin revealed no evidence of significant rashes, suspicious appearing nevi or other concerning lesions. Sternum stable clean and intact Neurologically the patient is sedated and off paralysis for now - Labs CBC & Chem 7: 02/11/18 04:45 02/11/18 04:45 Labs: Abnormal Lab Results - Last 24 Hours (Table) 02/08/18 02/10/18 02/10/18 Range/Units 10:50 10:45 11:52 WBC (3.8-10.6) k/uL RBC (4.30-5.90) m/uL Hgb (13.0-17.5) gm/dL Hct (39.0-53.0) % Plt Count (150-450) k/uL Neutrophils # (1.3-7.7) k/uL Monocytes # (0-1.0) k/uL ABG pH 7.31 L (7.35-7.45) ABG pCO2 55 H (35-45) mmHg ABG HCO3 27 H (21-25) mmol/L ABG Total CO2 (19-24) mmol/L ABG O2 Saturation (94-97) % Potassium (3.5-5.1) mmol/L Chloride (98-107) mmol/L BUN (9-20) mg/dL Glucose (74-99) mg/dL POC Glucose (mg/dL) 128 H (75-99) mg/dL Magnesium (1.6-2.3) mg/dL Total Protein (6.3-8.2) g/dL Albumin (3.5-5.0) g/dL Viral Test See Below H 02/10/18 02/10/18 02/10/18 Range/Units 15:35 16:40 20:23 WBC (3.8-10.6) k/uL RBC (4.30-5.90) m/uL Hgb (13.0-17.5) gm/dL Hct (39.0-53.0) % Plt Count (150-450) k/uL Neutrophils # (1.3-7.7) k/uL Monocytes # (0-1.0) k/uL ABG pH (7.35-7.45) ABG pCO2 (35-45) mmHg ABG HCO3 (21-25) mmol/L ABG Total CO2 (19-24) mmol/L ABG O2 Saturation (94-97) % Potassium 6.0 H (3.5-5.1) mmol/L Chloride 112 H (98-107) mmol/L BUN 44 H (9-20) mg/dL Glucose 123 H (74-99) mg/dL POC Glucose (mg/dL) 110 H 141 H (75-99) mg/dL Magnesium (1.6-2.3) mg/dL Total Protein (6.3-8.2) g/dL Albumin (3.5-5.0) g/dL Viral Test 02/10/18 02/11/18 02/11/18 Range/Units 23:56 04:34 04:45 WBC 30.7 H (3.8-10.6) k/uL RBC 3.25 L (4.30-5.90) m/uL Hgb 9.9 L (13.0-17.5) gm/dL Hct 31.8 L (39.0-53.0) % Plt Count 463 H (150-450) k/uL Neutrophils # 27.3 H (1.3-7.7) k/uL Monocytes # 1.4 H (0-1.0) k/uL ABG pH (7.35-7.45) ABG pCO2 (35-45) mmHg ABG HCO3 (21-25) mmol/L ABG Total CO2 (19-24) mmol/L ABG O2 Saturation (94-97) % Potassium (3.5-5.1) mmol/L Chloride (98-107) mmol/L BUN (9-20) mg/dL Glucose (74-99) mg/dL POC Glucose (mg/dL) 157 H 171 H (75-99) mg/dL Magnesium (1.6-2.3) mg/dL Total Protein (6.3-8.2) g/dL Albumin (3.5-5.0) g/dL Viral Test 02/11/18 02/11/18 02/11/18 Range/Units 04:45 05:28 07:50 WBC (3.8-10.6) k/uL RBC (4.30-5.90) m/uL Hgb (13.0-17.5) gm/dL Hct (39.0-53.0) % Plt Count (150-450) k/uL Neutrophils # (1.3-7.7) k/uL Monocytes # (0-1.0) k/uL ABG pH (7.35-7.45) ABG pCO2 (35-45) mmHg ABG HCO3 26 H (21-25) mmol/L ABG Total CO2 27 H (19-24) mmol/L ABG O2 Saturation 98.5 H (94-97) % Potassium 5.6 H (3.5-5.1) mmol/L Chloride 111 H (98-107) mmol/L BUN 48 H (9-20) mg/dL Glucose 165 H (74-99) mg/dL POC Glucose (mg/dL) 160 H (75-99) mg/dL Magnesium 3.0 H (1.6-2.3) mg/dL Total Protein 5.8 L (6.3-8.2) g/dL Albumin 3.0 L (3.5-5.0) g/dL Viral Test Microbiology - Last 24 Hours (Table) 02/10/18 09:50 Gram Stain - Preliminary Bronchial Washings - Left Bronchial Washings Culture - Preliminary 02/08/18 17:50 Blood Culture Gram Stain - Preliminary Blood 02/10/18 09:50 Acid Fast Bacilli Culture - Preliminary Bronchial Washings - Left 02/10/18 09:50 Fungal Culture - Preliminary Bronchial Washings - Left 02/08/18 17:50 Blood Culture - Final Blood 02/06/18 12:00 Blood Culture - Preliminary Blood No Growth after 96 hours 02/08/18 22:45 Urine Culture - Final Urine,Catheterized Assessment and Plan Plan: Assessment 1 coronary artery bypass surgery and the patient is postop day #11, status post off-pump 2 vessel bypass surgery 2 postoperative ARDS, remains intubated on mechanical ventilator. The patient was not extubated since his surgery. In addition he has developed left lower lobe pneumonia post bronchoscopy and removal of mucous plugs 3 left lower lobe pneumonia, with secondary bacteremia, awaiting final cultures.. The blood cultures showing gram-positive cocci. The patient also has strep group C on a previous sputum analysis. Gram-positive cocci is also growing in the bronchioloalveolar lavage there was obtain a left lower lobe. I suspect a pneumococcal pneumonia and bacteremia. Infectious disease on the case. The patient is covered with IV meropenem. 4 low-grade fever, episodic, currently afebrile. 5 history of left lower lobe atelectasis/collapse post bronchoscopy and removal of mucous plugs 6 COPD 7 sinus tachycardia 8 enteral feeding via Dobbhoff for nutritional support 9 chronic leukocytosis Plan Very happy with the patient's progress. Left lower lobe has improved on today' s chest x-ray. Cultures of been sent. The patient is covered with appropriate antibiotics. Oxygenation has improved. On cutting down the PEEP to 12 and I'm hoping to cut down further on 10 within the next 6-12 hours. We'll monitor the blood. Very closely. Keep the patient sedated for now. He is off paralytics. He is on the appropriate antibiotic coverage. We'll discuss the need for vancomycin with infectious disease. Allison is very appropriate for now. Awaiting final cultures and sensitivities. Continue enteral feeding for nutritional support. No need for sedation holiday. Continue to follow make further recommendations based on his progress. Monitor the potassium level. Hyperkalemia was treated by cardiothoracic surgery. Potassium level is down to 5.6 on today's evaluation. Critically care evaluation, more than 30 minutes. Time with Patient: Greater than 30
[2018-02-11] MEDS ORDERED: amLODIPine 5 MG TAB PO STA (10:52)
[2018-02-11] MEDS: VANCOMYCIN 1,750 MG in SODIUM CHLORIDE 0.9% 500 ML 500 ML IVPB SCH ×2 (11:15→21:16)
[2018-02-11] MEDS: DEXTROSE 5%-0.45% NACL 1,000 ML IV SCH ×2 (11:15→15:58)
[2018-02-11 11:47] LABS: Glucose,Whole Blood 159 mg/dL (75-99)
[2018-02-11 11:54] LABS: ABG Base Excess 1.2 mmol/L; ABG HCO3 25 mmol/L (21-25); ABG Oxygen Saturation 97.7 % (94-97); ABG PCO2 38 mmHg (35-45); ABG PH 7.44 (7.35-7.45); ABG PO2 88 mmHg (83-108); ABG TCO2 27 mmol/L (19-24)
[2018-02-11] MEDS ORDERED: VANCOMYCIN 1,750 MG in SODIUM CHLORIDE 0.9% 500 ML 500 ML IVPB SCH (13:00)
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
--- NOTE | 2018-02-11 14:00 | XR ---
EXAMINATION TYPE: XR chest 1V portable DATE OF EXAM: 02/11/2018 COMPARISON: 02/11/2018 earlier exam INDICATION: Dobbhoff placement TECHNIQUE: Frontal and lateral views of the chest are obtained. FINDINGS: The heart size is mildly prominent. The pulmonary vasculature is normal. The lungs are clear. Endotracheal tube is present above the gretel. Dobbhoff feeding tube appears to been pulled back to left upper quadrant of the abdomen. This should be advanced for more typical bhoff feeding tube placement, likely 11 cm. IMPRESSION: 1. Dobbhoff feeding tube tip is in the left upper quadrant of the abdomen. This should be advanced 11 cm to allow for more distal placement.
--- NOTE | 2018-02-11 15:11 | P.PN ---
Subjective This patient is status post coronary artery bypass surgery. His and has a prolonged hypoxic respiratory failure secondary to ARDS as well as pneumonia. Sent continuous to have a intermittent temperature and he remains intubated patient is stable cardiac-aguirre. No dysrhythmias are noted patient's blood pressure is fluctuating. Objective - Vital Signs Vital signs: Vital Signs Temp 98.8 F 02/11/18 08:00 Pulse 75 02/11/18 14:58 Resp 23 02/11/18 11:00 BP 96/59 02/11/18 11:00 Pulse Ox 95 02/11/18 11:00 Intake & Output 02/10/18 02/11/18 02/11/18 18:59 06:59 18:59 Intake Total 5630.803 1386 735 Output Total 1435 1179 555 Balance -220.107 434 180 Weight 102.4 kg 102.4 kg Intake: IV 353 1003 385 Dextrose 5%-0.45% NaCl 1, 320 330 220 000 ml @ 50 mls/hr IV . Q20H NICH[facility] Rx#:[id number] Meropenem 1 gm In Sodium 100 100 Chloride 0.9% 100 ml @ 200 mls/hr IVPB Q8HR NICHOLAS Rx#:[id number] NS 40 50 Pressure Bag 33 33 15 Vancomycin 2,000 mg In 500 Sodium Chloride 0.9% 500 ml 500 ml @ 167 mls/hr IVPB ONCE ONE Rx#: [id number] Intake, IV Titration 581.893 300 200 Amount Cisatracurium 200 mg In 200 Sodium Chloride 0.9% 180 ml @ 1 MCG/KG/MIN 6.37 mls/hr IV .Q24H NICHOLAS Rx#: [id number] Clevidipine Butyrate 25 49.733 mg In Empty Bag 1 bag @ 1 MG/HR 2 mls/hr IV .Q24H NICH[facility]AS Rx#:[id number] Dextrose 5%-0.45% NaCl 1, 50 000 ml @ 50 mls/hr IV . Q20H [facility]ICH[facility] Rx#:[id number] Propofol 1,000 mg In 282.16 300 200 Empty Bag 1 bag @ Titrate IV .Q0M NICHOLAS Rx#: [id number] Oral 120 Tube Feeding 160 220 120 Other 90 30 Output: Urine 1435 1179 555 Other: Voiding Method Indwelling Catheter Indwelling Catheter Indwelling Catheter ABP, PAP, CO, CI - Last Documented Arterial Blood Pressure 111/62 Pulmonary Artery Pressure 36/26 Cardiac Output 6.4 Cardiac Index 2.9 - Exam Patient is intubated. Patient's vital signs are reviewed. The patient is alert awake and in no acute distress. HEENT negative. Neck-supple no increase in JVP noted no carotid bruits noted. Chest-symmetrical. Heart-first and second heart sounds are normal. No S3 or S4 is noted. No significant murmurs are noted. Lungs bilateral good at entry is noted. Bilateral scattered wheezes are noted Abdomen-soft. Liver and spleen are not enlarged. The bowel sounds are normal. No tenderness noted Extremities-peripheral pulses since are 2+. No significant leg edema noted. Neuro-no significant gross abnormality noted. - Labs CBC & Chem 7: 02/11/18 04:45 02/11/18 04:45 Labs: Abnormal Lab Results - Last 24 Hours (Table) 02/10/18 02/10/18 02/10/18 Range/Units 15:35 16:40 20:23 WBC (3.8-10.6) k/uL RBC (4.30-5.90) m/uL Hgb (13.0-17.5) gm/dL Hct (39.0-53.0) % Plt Count (150-450) k/uL Neutrophils # (1.3-7.7) k/uL Monocytes # (0-1.0) k/uL ABG HCO3 (21-25) mmol/L ABG Total CO2 (19-24) mmol/L ABG O2 Saturation (94-97) % Potassium 6.0 H (3.5-5.1) mmol/L Chloride 112 H (98-107) mmol/L BUN 44 H (9-20) mg/dL Glucose 123 H (74-99) mg/dL POC Glucose (mg/dL) 110 H 141 H (75-99) mg/dL Magnesium (1.6-2.3) mg/dL Total Protein (6.3-8.2) g/dL Albumin (3.5-5.0) g/dL 02/10/18 02/11/18 02/11/18 Range/Units 23:56 04:34 04:45 WBC 30.7 H (3.8-10.6) k/uL RBC 3.25 L (4.30-5.90) m/uL Hgb 9.9 L (13.0-17.5) gm/dL Hct 31.8 L (39.0-53.0) % Plt Count 463 H (150-450) k/uL Neutrophils # 27.3 H (1.3-7.7) k/uL Monocytes # 1.4 H (0-1.0) k/uL ABG HCO3 (21-25) mmol/L ABG Total CO2 (19-24) mmol/L ABG O2 Saturation (94-97) % Potassium (3.5-5.1) mmol/L Chloride (98-107) mmol/L BUN (9-20) mg/dL Glucose (74-99) mg/dL POC Glucose (mg/dL) 157 H 171 H (75-99) mg/dL Magnesium (1.6-2.3) mg/dL Total Protein (6.3-8.2) g/dL Albumin (3.5-5.0) g/dL 02/11/18 02/11/18 02/11/18 Range/Units 04:45 05:28 07:50 WBC (3.8-10.6) k/uL RBC (4.30-5.90) m/uL Hgb (13.0-17.5) gm/dL Hct (39.0-53.0) % Plt Count (150-450) k/uL Neutrophils # (1.3-7.7) k/uL Monocytes # (0-1.0) k/uL ABG HCO3 26 H (21-25) mmol/L ABG Total CO2 27 H (19-24) mmol/L ABG O2 Saturation 98.5 H (94-97) % Potassium 5.6 H (3.5-5.1) mmol/L Chloride 111 H (98-107) mmol/L BUN 48 H (9-20) mg/dL Glucose 165 H (74-99) mg/dL POC Glucose (mg/dL) 160 H (75-99) mg/dL Magnesium 3.0 H (1.6-2.3) mg/dL Total Protein 5.8 L (6.3-8.2) g/dL Albumin 3.0 L (3.5-5.0) g/dL 02/11/18 02/11/18 Range/Units 11:43 11:45 WBC (3.8-10.6) k/uL RBC (4.30-5.90) m/uL Hgb (13.0-17.5) gm/dL Hct (39.0-53.0) % Plt Count (150-450) k/uL Neutrophils # (1.3-7.7) k/uL Monocytes # (0-1.0) k/uL ABG HCO3 (21-25) mmol/L ABG Total CO2 27 H (19-24) mmol/L ABG O2 Saturation 97.7 H (94-97) % Potassium (3.5-5.1) mmol/L Chloride (98-107) mmol/L BUN (9-20) mg/dL Glucose (74-99) mg/dL POC Glucose (mg/dL) 159 H (75-99) mg/dL Magnesium (1.6-2.3) mg/dL Total Protein (6.3-8.2) g/dL Albumin (3.5-5.0) g/dL Microbiology - Last 24 Hours (Table) 02/06/18 12:00 Blood Culture - Preliminary Blood No Growth after 120 hours 02/08/18 10:50 Gram Stain - Final Bronchial Washings - Left Bronchial Washings Culture - Final 02/10/18 09:50 Gram Stain - Preliminary Bronchial Washings - Left Bronchial Washings Culture - Preliminary 02/08/18 17:50 Blood Culture Gram Stain - Preliminary Blood 02/10/18 09:50 Acid Fast Bacilli Culture - Preliminary Bronchial Washings - Left 02/10/18 09:50 Fungal Culture - Preliminary Bronchial Washings - Left 02/08/18 17:50 Blood Culture - Final Blood 02/08/18 22:45 Urine Culture - Final Urine,Catheterized Assessment and Plan Assessment: This patient is status post coronary artery bypass surgery with acute hypoxic respiratory failure is and remains a stable cardiac-aguirre otherwise continue the current medications.
[2018-02-11 15:52] LABS: Glucose,Whole Blood 142 mg/dL (75-99)
--- NOTE | 2018-02-11 18:39 | P.PN ---
Subjective Progress Note Date: 02/09/18 Progress note being dictated for Dr. Potter. Interval history:Non-ST elevated [place] status post coronary artery bypass graft. Mr. Castillo is a 42-year-old male with a past medical history of hypertension, hyperlipidemia, nicotine dependence, coronary artery disease with prior stenting performed in 2003 2004 in [place] coming into the hospital with a chief complaint of chest discomfort in the upper mid sternum. Patient describes it as severe tightness and heaviness and he was short of breath and diaphoretic. Patient pain was so severe that he was unable to speak at the time when he had the chest pain. In the ED patient had elevated troponins and started on IV heparin. Patient subsequently underwent cardiac cath which revealed a total occluded right coronary artery that appeared to be chronically occluded. There is also a complex lesion and in-stent restenosis of the proximal LAD. So he was recommended to get a coronary artery bypass graft that is scheduled for tomorrow morning. Patient has risk factors of smoking for the past 26 years almost 1 pack per day. 02/01/18 - patient is postop day 1. Patient is in the ICU currently on mechanical ventilation. He is sedated with propofol, Nimbex and fentanyl. Patient was hypoxemic on 100% FiO2 yesterday, which could be due to acute lung injury. So his ventilator settings have been adjusted by Dr. Gipson. He is still on Cardizem drip. On 02/02/2018 Patient is still on mechanical ventilator and sedated.. Currently on Cardizem drip. Also present on insulin drip. Dobbhoff tube was placed for nutrition. Chest x-ray showed left lower lobe atelectasis and infiltrate. Patient is with pleural chest tube. Mediastinal chest tube was removed. No fever noted. Pulmonary, CT surgery is following. 02/03/2018 Patient had postoperative hypoxemic respiratory failure due to suspected ARDS. Currently patient is on mechanical ventilator. Currently Cardizem drip is off. Feeding Dobbhoff tube. Currently patient is sedated. Review of systems could not be apparent from the patient Chest x-ray showed no acute cardiopulmonary process. 02/06/2018 Patient is currently intubated and sedated. Patient developed hypoxemic respiratory failure postoperatively likely due to ARDS. Patient has been afebrile. Otherwise still tachycardic. Metoprolol dose has been increased. Patient will be started on Lantus and insulin sliding scale. Will hold insulin drip Chest tube has been discontinued. Pulmonary and CT surgery is following. Urine culture is growing Klebsiella. 02/09/2018 remains paralyzed on Nimbex, sedated on diprovan. Remains vent dependent, FiO2 50%/+13 of PEEP. Hemoglobin 12.1. Chest x-ray reporting left lower lobe atelectasis versus pneumonia and associated effusion. Retrocardiac density. Underwent bronchoscopy yesterday, copious secretions, cultures currently reporting no microbial growth, suspected left lower lobe pneumonia. T -max 101.4. WBC 32.3. Sputum culture pending. Merrem initiated. Tolerating tube feeds with minimal to no residuals. Objective - Vital Signs Vital signs: Vital Signs Temp 101.3 F H 02/09/18 16:00 Pulse 101 H 02/09/18 18:00 Resp 26 H 02/09/18 18:00 BP 155/80 02/09/18 03:00 Pulse Ox 93 L 02/09/18 18:00 Intake & Output 02/09/18 02/09/18 02/10/18 06:59 18:59 06:59 Intake Total 1838.988 2353.066 Output Total 1305 1375 Balance -13.724 480.066 Weight 99.5 kg 99.5 kg Intake: IV 36 36 Pressure Bag 36 36 Intake, IV Titration 463.390 1470.066 Amount Cisatracurium 200 mg In 40.874 133.466 Sodium Chloride 0.9% 180 ml @ 1 MCG/KG/MIN 6.37 mls/hr IV .Q24H [facility] Rx#: [id number] Clevidipine Butyrate 25 42.267 79.600 mg In Empty Bag 1 bag @ 1 MG/HR 2 mls/hr IV .Q24H [facility] Rx#:[id number] Dextrose 5%-0.45% NaCl 1, 360 600 000 ml @ 50 mls/hr IV . Q20H [facility] Rx#:[id number] Meropenem 1 gm In Sodium 200 Chloride 0.9% 100 ml @ 200 mls/hr IVPB Q8HR [facility] Rx#:[id number] Propofol 1,000 mg In 256.135 300 Empty Bag 1 bag @ Titrate IV .Q0M [facility] Rx#: [id number] Tube Feeding 496 366 Other 60 140 Output: Urine 1305 1375 Other: Voiding Method Indwelling Catheter Indwelling Catheter ABP, PAP, CO, CI - Last Documented Arterial Blood Pressure 110/62 Pulmonary Artery Pressure 36/26 Cardiac Output 6.4 Cardiac Index 2.9 - Exam GENERAL: Patient is mechanically ventilated, sedated, paralyzed on Nimbex. HEENT: Conjunctiva normal, oral mucosa moist .Endotracheal tube and orogastric tube present CARDIOVASCULAR: S1 and S2 present. No murmurs, rubs, or gallops. PULMONARY: Diminished breath sounds at the lower lung bases. Bilateral scattered rhonchi. No crackles, occasional fine expiratory wheezes. ABDOMEN: Soft, nontender, nondistended, normoactive bowel sounds. No palpable organomegaly. Scrotal edema EXTREMITIES: No edema. NEUROLOGICAL: Could not be assessed as he is sedated and paralyzed Microbiology 02/08/18 17:50 Blood Blood Culture - Preliminary No Growth after 24 hours 02/08/18 10:50 Bronchial Washings - Left Gram Stain - Preliminary 02/08/18 10:50 Bronchial Washings - Left Bronchial Washings Culture - Preliminary 02/06/18 12:00 Blood Blood Culture - Preliminary No Growth after 72 hours 02/08/18 22:45 Urine,Catheterized Urine Culture - Preliminary 02/06/18 22:05 Sputum Gram Stain - Final 02/06/18 22:05 Sputum Sputum Culture - Final Beta Hemolytic Strep Group C 02/08/18 10:50 Bronchial Washings - Left Acid Fast Bacilli Smear - Final 02/08/18 10:50 Bronchial Washings - Left Acid Fast Bacilli Culture - Preliminary 02/07/18 19:20 Urine,Catheterized Urine Culture - Final 02/08/18 10:50 Bronchial Washings - Left Fungal Culture - Preliminary 02/06/18 12:00 Urine,Catheterized Urine Culture - Final 02/03/18 01:25 Sputum Gram Stain - Final 02/03/18 01:25 Sputum Sputum Culture - Final 01/29/18 23:00 Urine,Clean Catch Urine Culture - Final Klebsiella pneumoniae 01/29/18 19:41 Nasal Swab Nasal Screen MRSA/MSSA - Final - Labs CBC & Chem 7: 02/11/18 04:45 02/11/18 04:45 Labs: Abnormal Lab Results - Last 24 Hours (Table) 02/08/18 02/09/18 02/09/18 Range/Units 20:06 01:19 04:00 WBC (3.8-10.6) k/uL RBC (4.30-5.90) m/uL Hgb (13.0-17.5) gm/dL Hct (39.0-53.0) % Neutrophils # (1.3-7.7) k/uL Monocytes # (0-1.0) k/uL Eosinophils # (0-0.7) k/uL Basophils # (0-0.2) k/uL ABG pCO2 (35-45) mmHg ABG pO2 77 L (83-108) mmHg ABG HCO3 (21-25) mmol/L ABG O2 Saturation (94-97) % Chloride (98-107) mmol/L BUN (9-20) mg/dL Glucose (74-99) mg/dL POC Glucose (mg/dL) 147 H 118 H (75-99) mg/dL Magnesium (1.6-2.3) mg/dL Total Protein (6.3-8.2) g/dL Albumin (3.5-5.0) g/dL 02/09/18 02/09/18 02/09/18 Range/Units 04:30 04:30 04:39 WBC 32.3 H (3.8-10.6) k/uL RBC 3.82 L (4.30-5.90) m/uL Hgb 12.1 L (13.0-17.5) gm/dL Hct 37.1 L (39.0-53.0) % Neutrophils # 24.4 H (1.3-7.7) k/uL Monocytes # 2.1 H (0-1.0) k/uL Eosinophils # 1.1 H (0-0.7) k/uL Basophils # 0.3 H (0-0.2) k/uL ABG pCO2 (35-45) mmHg ABG pO2 (83-108) mmHg ABG HCO3 (21-25) mmol/L ABG O2 Saturation (94-97) % Chloride 111 H (98-107) mmol/L BUN 45 H (9-20) mg/dL Glucose 151 H (74-99) mg/dL POC Glucose (mg/dL) 148 H (75-99) mg/dL Magnesium 2.9 H (1.6-2.3) mg/dL Total Protein 6.2 L (6.3-8.2) g/dL Albumin 3.3 L (3.5-5.0) g/dL 02/09/18 02/09/18 02/09/18 Range/Units 08:05 09:51 12:19 WBC (3.8-10.6) k/uL RBC (4.30-5.90) m/uL Hgb (13.0-17.5) gm/dL Hct (39.0-53.0) % Neutrophils # (1.3-7.7) k/uL Monocytes # (0-1.0) k/uL Eosinophils # (0-0.7) k/uL Basophils # (0-0.2) k/uL ABG pCO2 (35-45) mmHg ABG pO2 78 L (83-108) mmHg ABG HCO3 (21-25) mmol/L ABG O2 Saturation (94-97) % Chloride (98-107) mmol/L BUN (9-20) mg/dL Glucose (74-99) mg/dL POC Glucose (mg/dL) 145 H 132 H (75-99) mg/dL Magnesium (1.6-2.3) mg/dL Total Protein (6.3-8.2) g/dL Albumin (3.5-5.0) g/dL 02/09/18 02/09/18 Range/Units 16:01 17:40 WBC (3.8-10.6) k/uL RBC (4.30-5.90) m/uL Hgb (13.0-17.5) gm/dL Hct (39.0-53.0) % Neutrophils # (1.3-7.7) k/uL Monocytes # (0-1.0) k/uL Eosinophils # (0-0.7) k/uL Basophils # (0-0.2) k/uL ABG pCO2 46 H (35-45) mmHg ABG pO2 68 L (83-108) mmHg ABG HCO3 26 H (21-25) mmol/L ABG O2 Saturation 92.5 L (94-97) % Chloride (98-107) mmol/L BUN (9-20) mg/dL Glucose (74-99) mg/dL POC Glucose (mg/dL) 121 H (75-99) mg/dL Magnesium (1.6-2.3) mg/dL Total Protein (6.3-8.2) g/dL Albumin (3.5-5.0) g/dL Microbiology - Last 24 Hours (Table) 02/08/18 10:50 Gram Stain - Preliminary Bronchial Washings - Left Bronchial Washings Culture - Preliminary 02/06/18 12:00 Blood Culture - Preliminary Blood No Growth after 72 hours 02/08/18 22:45 Urine Culture - Preliminary Urine,Catheterized 02/06/18 22:05 Gram Stain - Final Sputum Sputum Culture - Final Beta Hemolytic Strep Group C 02/08/18 10:50 Acid Fast Bacilli Smear - Final Bronchial Washings - Left Acid Fast Bacilli Culture - Preliminary 02/07/18 19:20 Urine Culture - Final Urine,Catheterized 02/08/18 10:50 Fungal Culture - Preliminary Bronchial Washings - Left Assessment and Plan Assessment: CAD ,Status post two-vessel coronary artery bypass grafting Acute hypoxic respiratory, mechanical ventilation dependent- likely due to ARDS Acute coronary syndrome/non-ST elevated TX Status post bronchoscopy, mucus plugging with left lower lobe pneumonia Current smoker with a 26 pack years Hypertension Obesity, BMI 32.4 Generalized anxiety DVT prophylaxis Plan: Continue on current medication regime ,monitoring and symptomatic treatment. Maintain nebulized bronchodilators. Bronchoscopy cultures pending. Antibiotics as per infectious disease. Follow closely with multiple consults. Prognosis guarded. The impression and plan of care has been dictated as directed. : I performed a history and examination of this patient, discussed the same with the dictator. I agree with the dictator's note ,documented as a scribe. Any additional findings or plans will be noted.
[2018-02-11 19:56] LABS: Glucose,Whole Blood 187 mg/dL (75-99)
[2018-02-11] MEDS: amLODIPine 5 MG TAB PO SCH (20:55)
[2018-02-11] MEDS: SENNOSIDES-DOCUSATE SODIUM 1 EACH TAB PO SCH (20:56)
[2018-02-11] MEDS: INSULIN DETEMIR 100 UNIT/ML 10 ML VIAL SQ SCH (20:56)
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
[2018-02-11 23:48] LABS: Glucose,Whole Blood 159 mg/dL (75-99)
[2018-02-12] MEDS: DEXTROSE 5%-0.45% NACL 1,000 ML IV SCH (00:21)
[2018-02-12] MEDS: PROPOFOL 1,000 MG in EMPTY BAG 1 BAG IV SCH ×6 (00:22→22:16)
[2018-02-12] MEDS: HYDROmorphone 1 MG/ML 1 ML SYRINGE IVP PRN ×4 (02:14→22:33)
--- NOTE | 2018-02-12 02:48 | P.PN ---
Subjective Progress Note Date: 02/10/18 Progress note being dictated for Dr. Potter. Interval history:Non-ST elevated [place] status post coronary artery bypass graft. Mr. Castillo is a 42-year-old male with a past medical history of hypertension, hyperlipidemia, nicotine dependence, coronary artery disease with prior stenting performed in 2003 2004 in [place] coming into the hospital with a chief complaint of chest discomfort in the upper mid sternum. Patient describes it as severe tightness and heaviness and he was short of breath and diaphoretic. Patient pain was so severe that he was unable to speak at the time when he had the chest pain. In the ED patient had elevated troponins and started on IV heparin. Patient subsequently underwent cardiac cath which revealed a total occluded right coronary artery that appeared to be chronically occluded. There is also a complex lesion and in-stent restenosis of the proximal LAD. So he was recommended to get a coronary artery bypass graft that is scheduled for tomorrow morning. Patient has risk factors of smoking for the past 26 years almost 1 pack per day. 02/01/18 - patient is postop day 1. Patient is in the ICU currently on mechanical ventilation. He is sedated with propofol, Nimbex and fentanyl. Patient was hypoxemic on 100% FiO2 yesterday, which could be due to acute lung injury. So his ventilator settings have been adjusted by Dr. Gipson. He is still on Cardizem drip. On 02/02/2018 Patient is still on mechanical ventilator and sedated.. Currently on Cardizem drip. Also present on insulin drip. Dobbhoff tube was placed for nutrition. Chest x-ray showed left lower lobe atelectasis and infiltrate. Patient is with pleural chest tube. Mediastinal chest tube was removed. No fever noted. Pulmonary, CT surgery is following. 02/03/2018 Patient had postoperative hypoxemic respiratory failure due to suspected ARDS. Currently patient is on mechanical ventilator. Currently Cardizem drip is off. Feeding Dobbhoff tube. Currently patient is sedated. Review of systems could not be apparent from the patient Chest x-ray showed no acute cardiopulmonary process. 02/06/2018 Patient is currently intubated and sedated. Patient developed hypoxemic respiratory failure postoperatively likely due to ARDS. Patient has been afebrile. Otherwise still tachycardic. Metoprolol dose has been increased. Patient will be started on Lantus and insulin sliding scale. Will hold insulin drip Chest tube has been discontinued. Pulmonary and CT surgery is following. Urine culture is growing Klebsiella. 02/09/2018 remains paralyzed on Nimbex, sedated on diprovan. Remains vent dependent, FiO2 50%/+13 of PEEP. Hemoglobin 12.1. Chest x-ray reporting left lower lobe atelectasis versus pneumonia and associated effusion. Retrocardiac density. Underwent bronchoscopy yesterday, copious secretions, cultures currently reporting no microbial growth, suspected left lower lobe pneumonia. T -max 101.4. WBC 32.3. Sputum culture pending. Merrem initiated. Tolerating tube feeds with minimal to no residuals. 02/10/2018 last night/sumac tanner hours difficulties with oxygenation, FiO2 increased up to 100% . Currently maintained on mechanical ventilation with FiO2 decreased to 80%/+14 of PEEP . Chest x-ray reporting worsening left lower lobe consolidation .underwent bronchoscopy today, purulent mucous plugs suctioned from the left lower lobe. Maintained on IV antibiotics as per infectious disease. Nimbex off. T-max 101.3, WBC 34.4. Telemetry sinus rhythm. Objective - Vital Signs Vital signs: Vital Signs Temp 99 F 02/10/18 12:00 Pulse 92 02/10/18 16:11 Resp 29 H 02/10/18 15:00 BP 103/67 02/10/18 15:00 Pulse Ox 99 02/10/18 15:00 Intake & Output 02/09/18 02/10/18 02/10/18 18:59 06:59 18:59 Intake Total 9899.785 9355.006 875.893 Output Total 1375 1145 925 Balance 580.066 606.006 -49.107 Weight 99.5 kg 101.2 kg Intake: IV 36 36 254 Dextrose 5%-0.45% NaCl 1, 230 000 ml @ 30 mls/hr IV . Q24H [facility] Rx#:[id number] Pressure Bag 36 36 24 Intake, IV Titration 4706.359 3706.006 481.893 Amount Cisatracurium 200 mg In 133.466 199.271 200 Sodium Chloride 0.9% 180 ml @ 1 MCG/KG/MIN 6.37 mls/hr IV .Q24H [facility] Rx#: [id number] Clevidipine Butyrate 25 79.600 126.934 49.733 mg In Empty Bag 1 bag @ 1 MG/HR 2 mls/hr IV .Q24H [facility] Rx#:[id number] Dextrose 5%-0.45% NaCl 1, 600 600 50 000 ml @ 30 mls/hr IV . Q24H [facility] Rx#:[id number] Meropenem 1 gm In Sodium 200 100 Chloride 0.9% 100 ml @ 200 mls/hr IVPB Q8HR [facility] Rx#:[id number] Propofol 1,000 mg In 400 338.801 182.16 Empty Bag 1 bag @ Titrate IV .Q0M [facility] Rx#: [id number] Tube Feeding 366 320 140 Other 140 30 Output: Urine 1375 1145 925 Other: Voiding Method Indwelling Catheter Indwelling Catheter Indwelling Catheter ABP, PAP, CO, CI - Last Documented Arterial Blood Pressure 121/66 Pulmonary Artery Pressure 36/26 Cardiac Output 6.4 Cardiac Index 2.9 - Exam GENERAL: Patient is mechanically ventilated, sedated HEENT: Conjunctiva normal, oral mucosa moist .Endotracheal tube and orogastric tube present CARDIOVASCULAR: S1 and S2 present. No murmurs, rubs, or gallops. PULMONARY: Diminished breath sounds at the lower lung bases. Bilateral scattered rhonchi. No crackles, occasional fine expiratory wheezes. ABDOMEN: Soft, nontender, nondistended, normoactive bowel sounds. No palpable organomegaly. Scrotal edema EXTREMITIES: No edema. NEUROLOGICAL: Could not be assessed as he is sedated - Labs CBC & Chem 7: 02/11/18 04:45 02/11/18 04:45 Labs: Abnormal Lab Results - Last 24 Hours (Table) 02/08/18 02/09/18 02/09/18 Range/Units 10:50 17:40 19:53 WBC (3.8-10.6) k/uL RBC (4.30-5.90) m/uL Hgb (13.0-17.5) gm/dL Hct (39.0-53.0) % Neutrophils # (Manual) (1.3-7.7) k/uL Monocytes # (Manual) (0-1.0) k/uL Eosinophils # (Manual) (0-0.7) k/uL ABG pH (7.35-7.45) ABG pCO2 46 H (35-45) mmHg ABG pO2 68 L (83-108) mmHg ABG HCO3 26 H (21-25) mmol/L ABG O2 Saturation 92.5 L (94-97) % Potassium (3.5-5.1) mmol/L Chloride (98-107) mmol/L BUN (9-20) mg/dL Glucose (74-99) mg/dL POC Glucose (mg/dL) 113 H (75-99) mg/dL Magnesium (1.6-2.3) mg/dL ALT (21-72) U/L Total Protein (6.3-8.2) g/dL Albumin (3.5-5.0) g/dL Viral Test See Below H 02/09/18 02/09/18 02/09/18 Range/Units 21:16 23:41 23:53 WBC (3.8-10.6) k/uL RBC (4.30-5.90) m/uL Hgb (13.0-17.5) gm/dL Hct (39.0-53.0) % Neutrophils # (Manual) (1.3-7.7) k/uL Monocytes # (Manual) (0-1.0) k/uL Eosinophils # (Manual) (0-0.7) k/uL ABG pH 7.34 L 7.33 L (7.35-7.45) ABG pCO2 50 H 49 H (35-45) mmHg ABG pO2 70 L 159 H (83-108) mmHg ABG HCO3 27 H (21-25) mmol/L ABG O2 Saturation 99.0 H (94-97) % Potassium (3.5-5.1) mmol/L Chloride (98-107) mmol/L BUN (9-20) mg/dL Glucose (74-99) mg/dL POC Glucose (mg/dL) 131 H (75-99) mg/dL Magnesium (1.6-2.3) mg/dL ALT (21-72) U/L Total Protein (6.3-8.2) g/dL Albumin (3.5-5.0) g/dL Viral Test 02/10/18 02/10/18 02/10/18 Range/Units 03:57 04:05 04:10 WBC 34.4 H (3.8-10.6) k/uL RBC 3.62 L (4.30-5.90) m/uL Hgb 11.2 L (13.0-17.5) gm/dL Hct 35.8 L (39.0-53.0) % Neutrophils # (Manual) 25.80 H (1.3-7.7) k/uL Monocytes # (Manual) 3.10 H (0-1.0) k/uL Eosinophils # (Manual) 2.06 H (0-0.7) k/uL ABG pH 7.31 L (7.35-7.45) ABG pCO2 54 H (35-45) mmHg ABG pO2 (83-108) mmHg ABG HCO3 26 H (21-25) mmol/L ABG O2 Saturation (94-97) % Potassium (3.5-5.1) mmol/L Chloride (98-107) mmol/L BUN (9-20) mg/dL Glucose (74-99) mg/dL POC Glucose (mg/dL) 120 H (75-99) mg/dL Magnesium (1.6-2.3) mg/dL ALT (21-72) U/L Total Protein (6.3-8.2) g/dL Albumin (3.5-5.0) g/dL Viral Test 02/10/18 02/10/18 02/10/18 Range/Units 04:10 08:00 10:45 WBC (3.8-10.6) k/uL RBC (4.30-5.90) m/uL Hgb (13.0-17.5) gm/dL Hct (39.0-53.0) % Neutrophils # (Manual) (1.3-7.7) k/uL Monocytes # (Manual) (0-1.0) k/uL Eosinophils # (Manual) (0-0.7) k/uL ABG pH 7.31 L (7.35-7.45) ABG pCO2 55 H (35-45) mmHg ABG pO2 (83-108) mmHg ABG HCO3 27 H (21-25) mmol/L ABG O2 Saturation (94-97) % Potassium 5.9 H (3.5-5.1) mmol/L Chloride 110 H (98-107) mmol/L BUN 41 H (9-20) mg/dL Glucose 125 H (74-99) mg/dL POC Glucose (mg/dL) 121 H (75-99) mg/dL Magnesium 3.0 H (1.6-2.3) mg/dL ALT 77 H (21-72) U/L Total Protein 6.0 L (6.3-8.2) g/dL Albumin 3.2 L (3.5-5.0) g/dL Viral Test 02/10/18 02/10/18 Range/Units 11:52 15:35 WBC (3.8-10.6) k/uL RBC (4.30-5.90) m/uL Hgb (13.0-17.5) gm/dL Hct (39.0-53.0) % Neutrophils # (Manual) (1.3-7.7) k/uL Monocytes # (Manual) (0-1.0) k/uL Eosinophils # (Manual) (0-0.7) k/uL ABG pH (7.35-7.45) ABG pCO2 (35-45) mmHg ABG pO2 (83-108) mmHg ABG HCO3 (21-25) mmol/L ABG O2 Saturation (94-97) % Potassium 6.0 H (3.5-5.1) mmol/L Chloride 112 H (98-107) mmol/L BUN 44 H (9-20) mg/dL Glucose 123 H (74-99) mg/dL POC Glucose (mg/dL) 128 H (75-99) mg/dL Magnesium (1.6-2.3) mg/dL ALT (21-72) U/L Total Protein (6.3-8.2) g/dL Albumin (3.5-5.0) g/dL Viral Test Microbiology - Last 24 Hours (Table) 02/06/18 12:00 Blood Culture - Preliminary Blood No Growth after 96 hours 02/08/18 22:45 Urine Culture - Final Urine,Catheterized 02/08/18 17:50 Blood Culture - Preliminary Blood No Growth after 24 hours 02/08/18 10:50 Gram Stain - Preliminary Bronchial Washings - Left Bronchial Washings Culture - Preliminary Assessment and Plan Assessment: CAD ,Status post two-vessel coronary artery bypass grafting Acute hypoxic respiratory, mechanical ventilation dependent- likely due to ARDS Acute coronary syndrome/non-ST elevated [place] Status post bronchoscopy, mucus plugging with left lower lobe pneumonia, sputum positive for beta hemolytic group C Current smoker with a 26 pack years Hypertension Obesity, BMI 32.4 Generalized anxiety DVT prophylaxis Plan: Continue on current medication regime ,monitoring and symptomatic treatment. Nimbex off. Maintain nebulized bronchodilators, IV steroids. Bronchoscopy cultures pending. Antibiotics as per infectious disease. Follow closely with multiple consults. Prognosis guarded. The impression and plan of care has been dictated as directed. : I performed a history and examination of this patient, discussed the same with the dictator. I agree with the dictator's note ,documented as a scribe. Any additional findings or plans will be noted.
--- NOTE | 2018-02-12 03:06 | P.PN ---
Subjective Progress Note Date: 02/11/18 Progress note being dictated for Dr. Potter. Interval history:Non-ST elevated [place] status post coronary artery bypass graft. Mr. Castillo is a 42-year-old male with a past medical history of hypertension, hyperlipidemia, nicotine dependence, coronary artery disease with prior stenting performed in 2003 2004 in [place] coming into the hospital with a chief complaint of chest discomfort in the upper mid sternum. Patient describes it as severe tightness and heaviness and he was short of breath and diaphoretic. Patient pain was so severe that he was unable to speak at the time when he had the chest pain. In the ED patient had elevated troponins and started on IV heparin. Patient subsequently underwent cardiac cath which revealed a total occluded right coronary artery that appeared to be chronically occluded. There is also a complex lesion and in-stent restenosis of the proximal LAD. So he was recommended to get a coronary artery bypass graft that is scheduled for tomorrow morning. Patient has risk factors of smoking for the past 26 years almost 1 pack per day. 02/01/18 - patient is postop day 1. Patient is in the ICU currently on mechanical ventilation. He is sedated with propofol, Nimbex and fentanyl. Patient was hypoxemic on 100% FiO2 yesterday, which could be due to acute lung injury. So his ventilator settings have been adjusted by Dr. Gipson. He is still on Cardizem drip. On 02/02/2018 Patient is still on mechanical ventilator and sedated.. Currently on Cardizem drip. Also present on insulin drip. Dobbhoff tube was placed for nutrition. Chest x-ray showed left lower lobe atelectasis and infiltrate. Patient is with pleural chest tube. Mediastinal chest tube was removed. No fever noted. Pulmonary, CT surgery is following. 02/03/2018 Patient had postoperative hypoxemic respiratory failure due to suspected ARDS. Currently patient is on mechanical ventilator. Currently Cardizem drip is off. Feeding Dobbhoff tube. Currently patient is sedated. Review of systems could not be apparent from the patient Chest x-ray showed no acute cardiopulmonary process. 02/06/2018 Patient is currently intubated and sedated. Patient developed hypoxemic respiratory failure postoperatively likely due to ARDS. Patient has been afebrile. Otherwise still tachycardic. Metoprolol dose has been increased. Patient will be started on Lantus and insulin sliding scale. Will hold insulin drip Chest tube has been discontinued. Pulmonary and CT surgery is following. Urine culture is growing Klebsiella. 02/09/2018 remains paralyzed on Nimbex, sedated on diprovan. Remains vent dependent, FiO2 50%/+13 of PEEP. Hemoglobin 12.1. Chest x-ray reporting left lower lobe atelectasis versus pneumonia and associated effusion. Retrocardiac density. Underwent bronchoscopy yesterday, copious secretions, cultures currently reporting no microbial growth, suspected left lower lobe pneumonia. T -max 101.4. WBC 32.3. Sputum culture pending. Merrem initiated. Tolerating tube feeds with minimal to no residuals. 02/10/2018 last night/string laster hours difficulties with oxygenation, FiO2 increased up to 100% . Currently maintained on mechanical ventilation with FiO2 decreased to 80%/+14 of PEEP . Chest x-ray reporting worsening left lower lobe consolidation .underwent bronchoscopy today, purulent mucous plugs suctioned from the left lower lobe. Maintained on IV antibiotics as per infectious disease. Nimbex off. T-max 101.3, WBC 34.4. Telemetry sinus rhythm. Potassium 5.9, redraw pending. 02/11/2018 remains vent dependent, FiO2 40%, PEEP decreased to +10. Chest x- ray reporting improvement of the left lower lobe. Preliminary bronch & blood cultures reporting gram-positive cocci. ABGs pending. Creamy cortes secretions suctioned from endotracheal tube. Telemetry sinus rhythm. WBC trending down, 30.7. T-max 101.4. Potassium down to 5.6. Remains off of Cleviprex. Objective - Vital Signs Vital signs: Vital Signs Temp 98.7 F 02/11/18 20:00 Pulse 60 02/11/18 23:21 Resp 26 H 02/11/18 23:00 BP 96/59 02/11/18 17:00 Pulse Ox 96 02/11/18 23:00 Intake & Output 02/11/18 02/11/18 02/12/18 06:59 18:59 06:59 Intake Total 1613 2024.016 224 Output Total 1179 1410 Balance 434 614.016 224 Weight 102.4 kg 102.4 kg Intake: IV 1003 1426 Dextrose 5%-0.45% NaCl 1, 330 570 000 ml @ 50 mls/hr IV . Q20H [facility] Rx#:[id number] Meropenem 1 gm In Sodium 100 200 Chloride 0.9% 100 ml @ 200 mls/hr IVPB Q8HR [facility] Rx#:[id number] NS 40 120 Pressure Bag 33 36 Vancomycin 2,000 mg In 500 500 Sodium Chloride 0.9% 500 ml 500 ml @ 167 mls/hr IVPB [facility]CE [facility] Rx#: [id number] Intake, IV Titration 300 386.016 100 Amount Propofol 1,000 mg In 300 386.016 100 Empty Bag 1 bag @ Titrate IV .Q0M [facility] Rx#: [id number] Tube Feeding 220 182 124 Other 90 30 Output: Urine 1179 1410 Other: Voiding Method Indwelling Catheter Indwelling Catheter Indwelling Catheter ABP, PAP, CO, CI - Last Documented Arterial Blood Pressure 117/63 Pulmonary Artery Pressure 36/26 Cardiac Output 6.4 Cardiac Index 2.9 - Exam GENERAL: Patient is mechanically ventilated, sedated HEENT: Conjunctiva normal, oral mucosa moist .Endotracheal tube and orogastric tube present CARDIOVASCULAR: S1 and S2 present. No murmurs, rubs, or gallops. PULMONARY: Diminished breath sounds at the lower lung bases. No wheezing, no rhonchi ABDOMEN: Soft, nontender, nondistended, normoactive bowel sounds. No palpable organomegaly. EXTREMITIES: No edema. NEUROLOGICAL: Could not be assessed as he is sedated Microbiology 02/10/18 09:50 Bronchial Washings - Left Acid Fast Bacilli Smear - Final 02/10/18 09:50 Bronchial Washings - Left Acid Fast Bacilli Culture - Preliminary 02/06/18 12:00 Blood Blood Culture - Preliminary No Growth after 120 hours 02/08/18 10:50 Bronchial Washings - Left Gram Stain - Final 02/08/18 10:50 Bronchial Washings - Left Bronchial Washings Culture - Final 02/10/18 09:50 Bronchial Washings - Left Gram Stain - Preliminary 02/10/18 09:50 Bronchial Washings - Left Bronchial Washings Culture - Preliminary 02/08/18 17:50 Blood Blood Culture Gram Stain - Preliminary 02/10/18 09:50 Bronchial Washings - Left Fungal Culture - Preliminary 02/08/18 17:50 Blood Blood Culture - Final 02/08/18 22:45 Urine,Catheterized Urine Culture - Final 02/06/18 22:05 Sputum Gram Stain - Final 02/06/18 22:05 Sputum Sputum Culture - Final Beta Hemolytic Strep Group C 02/08/18 10:50 Bronchial Washings - Left Acid Fast Bacilli Smear - Final 02/08/18 10:50 Bronchial Washings - Left Acid Fast Bacilli Culture - Preliminary 02/07/18 19:20 Urine,Catheterized Urine Culture - Final 02/08/18 10:50 Bronchial Washings - Left Fungal Culture - Preliminary 02/06/18 12:00 Urine,Catheterized Urine Culture - Final 02/03/18 01:25 Sputum Gram Stain - Final 02/03/18 01:25 Sputum Sputum Culture - Final 01/29/18 23:00 Urine,Clean Catch Urine Culture - Final Klebsiella pneumoniae 01/29/18 19:41 Nasal Swab Nasal Screen MRSA/MSSA - Final - Labs CBC & Chem 7: 02/11/18 04:45 02/11/18 04:45 Labs: Abnormal Lab Results - Last 24 Hours (Table) 02/10/18 02/11/18 02/11/18 Range/Units 23:56 04:34 04:45 WBC 30.7 H (3.8-10.6) k/uL RBC 3.25 L (4.30-5.90) m/uL Hgb 9.9 L (13.0-17.5) gm/dL Hct 31.8 L (39.0-53.0) % Plt Count 463 H (150-450) k/uL Neutrophils # 27.3 H (1.3-7.7) k/uL Monocytes # 1.4 H (0-1.0) k/uL ABG HCO3 (21-25) mmol/L ABG Total CO2 (19-24) mmol/L ABG O2 Saturation (94-97) % Potassium (3.5-5.1) mmol/L Chloride (98-107) mmol/L BUN (9-20) mg/dL Glucose (74-99) mg/dL POC Glucose (mg/dL) 157 H 171 H (75-99) mg/dL Magnesium (1.6-2.3) mg/dL Total Protein (6.3-8.2) g/dL Albumin (3.5-5.0) g/dL 02/11/18 02/11/18 02/11/18 Range/Units 04:45 05:28 07:50 WBC (3.8-10.6) k/uL RBC (4.30-5.90) m/uL Hgb (13.0-17.5) gm/dL Hct (39.0-53.0) % Plt Count (150-450) k/uL Neutrophils # (1.3-7.7) k/uL Monocytes # (0-1.0) k/uL ABG HCO3 26 H (21-25) mmol/L ABG Total CO2 27 H (19-24) mmol/L ABG O2 Saturation 98.5 H (94-97) % Potassium 5.6 H (3.5-5.1) mmol/L Chloride 111 H (98-107) mmol/L BUN 48 H (9-20) mg/dL Glucose 165 H (74-99) mg/dL POC Glucose (mg/dL) 160 H (75-99) mg/dL Magnesium 3.0 H (1.6-2.3) mg/dL Total Protein 5.8 L (6.3-8.2) g/dL Albumin 3.0 L (3.5-5.0) g/dL 02/11/18 02/11/18 02/11/18 Range/Units 11:43 11:45 15:48 WBC (3.8-10.6) k/uL RBC (4.30-5.90) m/uL Hgb (13.0-17.5) gm/dL Hct (39.0-53.0) % Plt Count (150-450) k/uL Neutrophils # (1.3-7.7) k/uL Monocytes # (0-1.0) k/uL ABG HCO3 (21-25) mmol/L ABG Total CO2 27 H (19-24) mmol/L ABG O2 Saturation 97.7 H (94-97) % Potassium (3.5-5.1) mmol/L Chloride (98-107) mmol/L BUN (9-20) mg/dL Glucose (74-99) mg/dL POC Glucose (mg/dL) 159 H 142 H (75-99) mg/dL Magnesium (1.6-2.3) mg/dL Total Protein (6.3-8.2) g/dL Albumin (3.5-5.0) g/dL 02/11/18 Range/Units 19:53 WBC (3.8-10.6) k/uL RBC (4.30-5.90) m/uL Hgb (13.0-17.5) gm/dL Hct (39.0-53.0) % Plt Count (150-450) k/uL Neutrophils # (1.3-7.7) k/uL Monocytes # (0-1.0) k/uL ABG HCO3 (21-25) mmol/L ABG Total CO2 (19-24) mmol/L ABG O2 Saturation (94-97) % Potassium (3.5-5.1) mmol/L Chloride (98-107) mmol/L BUN (9-20) mg/dL Glucose (74-99) mg/dL POC Glucose (mg/dL) 187 H (75-99) mg/dL Magnesium (1.6-2.3) mg/dL Total Protein (6.3-8.2) g/dL Albumin (3.5-5.0) g/dL Microbiology - Last 24 Hours (Table) 02/10/18 09:50 Acid Fast Bacilli Smear - Final Bronchial Washings - Left Acid Fast Bacilli Culture - Preliminary 02/06/18 12:00 Blood Culture - Preliminary Blood No Growth after 120 hours 02/08/18 10:50 Gram Stain - Final Bronchial Washings - Left Bronchial Washings Culture - Final 02/10/18 09:50 Gram Stain - Preliminary Bronchial Washings - Left Bronchial Washings Culture - Preliminary 02/08/18 17:50 Blood Culture Gram Stain - Preliminary Blood 02/10/18 09:50 Fungal Culture - Preliminary Bronchial Washings - Left 02/08/18 17:50 Blood Culture - Final Blood Assessment and Plan Assessment: CAD ,Status post two-vessel coronary artery bypass grafting Acute hypoxic respiratory, mechanical ventilation dependent- likely due to ARDS Acute coronary syndrome/non-ST elevated [place] Status post bronchoscopy, mucus plugging left lower lobe pneumonia, possible pneumococcal; sputum positive for beta hemolytic group C, bronchial lavage with gram-positive cocci Gram-positive cocci bacteremia Current smoker with a 26 pack years Hypertension Obesity, BMI 32.4 Generalized anxiety DVT prophylaxis Hyperkalemia Plan: Continue on current medication regime ,monitoring and symptomatic treatment. Nimbex remains off. Maintain nebulized bronchodilators, IV steroids. Bronchoscopy cultures pending. Final culture results pending. Antibiotics as per infectious disease. Close monitoring of Accu-Cheks. Prognosis guarded. The impression and plan of care has been dictated as directed. : I performed a history and examination of this patient, discussed the same with the dictator. I agree with the dictator's note ,documented as a scribe. Any additional findings or plans will be noted.
[2018-02-12] MEDS: IPRATROPIUM-ALBUTEROL 3 ML NEB INHALATION SCH ×6 (03:23→23:17)
[2018-02-12] MEDS: INSULIN ASPART 100 UNIT/ML 1 ML 10 ML VIAL SQ SCH ×6 (03:33→23:55)
[2018-02-12] MEDS: ARTIFICIAL TEARS-HYPROMELLOSE DROPS 15 ML BTL BOTH EYES SCH ×6 (03:35→23:58)
[2018-02-12 03:48] LABS: Glucose,Whole Blood 143 mg/dL (75-99)
[2018-02-12 04:22] LABS: Basophils % (A) 0 %; Eosinophils % (A) 0 %; HCT 29.3 % (39.0-53.0); HGB 9.4 gm/dL (13.0-17.5); Lymphocytes # (A) 2.5 k/uL (1.0-4.8); Lymphocytes % (A) 10 %; MCH 30.8 pg (25.0-35.0); MCV 96.2 fL (80.0-100.0); Mean Platelet Volume 7.7; Monocytes # (A) 1.3 k/uL (0-1.0); Monocytes % (A) 5 %; Neutrophils # (A) 21.1 k/uL (1.3-7.7); Neutrophils % (A) 84 %; Platelet Count 473 k/uL (150-450); RBC 3.05 m/uL (4.30-5.90); RDW 13.9 % (11.5-15.5); WBC 25.3 k/uL (3.8-10.6)
[2018-02-12 04:36] LABS: ABG Base Excess 0.1 mmol/L; ABG HCO3 24 mmol/L (21-25); ABG Oxygen Saturation 98.1 % (94-97); ABG PCO2 37 mmHg (35-45); ABG PH 7.43 (7.35-7.45); ABG PO2 98 mmHg (83-108); ABG TCO2 26 mmol/L (19-24)
[2018-02-12 04:56] LABS: Ionized Calcium 5.3 mg/dL (4.5-5.3)
[2018-02-12 05:23] LABS: ALT 96 U/L (21-72); AST 49 U/L (17-59); Albumin 2.7 g/dL (3.5-5.0); Alkaline Phosphatase 54 U/L (38-126); Anion Gap 5 mmol/L; Blood Urea Nitrogen 39 mg/dL (9-20); Calcium 8.9 mg/dL (8.4-10.2); Carbon Dioxide 24 mmol/L (22-30); Chloride 111 mmol/L (98-107); Glucose 149 mg/dL (74-99); Magnesium 2.4 mg/dL (1.6-2.3); Phosphorus 3.5 mg/dL (2.5-4.5); Potassium 4.7 mmol/L (3.5-5.1); Sodium 140 mmol/L (137-145); Total Bilirubin 0.4 mg/dL (0.2-1.3); Total Protein 5.4 g/dL (6.3-8.2)
[2018-02-12] MEDS: FORMOTEROL FUMARATE 20 MCG/2 ML NEBU INHALATION SCH ×2 (07:22→19:01)
[2018-02-12] MEDS: BUDESONIDE 1 MG/2 ML NEBU INHALATION SCH ×2 (07:23→19:01)
--- NOTE | 2018-02-12 07:28 | XR ---
EXAMINATION TYPE: XR chest 1V portable DATE OF EXAM: 02/12/2018 HISTORY: Post Op CABG COMPARISON: 02/11/2018 TECHNIQUE: Single view of the chest is submitted. FINDINGS: Dobbhoff tube is unchanged in position. Endotracheal tube is also stable in position as is left-sided PICC line. Post operative changes of CABG. Pulmonary venous congestion noted. No sizeable pneumothorax. Scattered Pleural-parenchymal opacities may reflect atelectasis. The heart is not enlarged. IMPRESSION: 1. Pulmonary venous congestion without overt failure. Suspect mild left lower lobe atelectasis.
[2018-02-12 08:01] LABS: Glucose,Whole Blood 151 mg/dL (75-99)
[2018-02-12] MEDS: ASPIRIN 325 MG TAB PO SCH (08:08)
[2018-02-12] MEDS: CLOPIDOGREL 75 MG TAB PO SCH (08:09)
[2018-02-12] MEDS: HEPARIN SODIUM,PORCINE 5,000 UNIT/ML 1 ML VIAL SQ SCH ×3 (08:09→23:57)
[2018-02-12] MEDS: METOPROLOL TARTRATE 50 MG TAB PO SCH ×2 (08:09→20:29)
[2018-02-12] MEDS: PANTOPRAZOLE 40 MG/10 ML VIAL IVP SCH (08:09)
[2018-02-12] MEDS: ATORVASTATIN 40 MG TAB PO SCH (08:09)
[2018-02-12] MEDS: amLODIPine 5 MG TAB PO SCH ×2 (08:09→20:28)
[2018-02-12] MEDS: methylPREDNISolone SOD SUCCI 40 MG/ML 1 ML VIAL IV SCH ×3 (08:09→23:58)
[2018-02-12] MEDS: CHLORHEXIDINE GLUCONATE 15 ML CUP MUCOUS MEM SCH ×2 (08:10→20:29)
[2018-02-12] MEDS: MAGNESIUM HYDROXIDE 2,400 MG/10 ML CUP PO PRN (08:10)
[2018-02-12] MEDS: MEROPENEM 1 GM in SODIUM CHLORIDE 0.9% 100 ML IVPB SCH ×3 (08:18→23:57)
[2018-02-12] MEDS: DEXMEDETOMIDINE/0.9% NACL(PMX) 400 MCG in EMPTY BAG 1 BAG IV SCH ×2 (08:54→22:11)
[2018-02-12] MEDS: VANCOMYCIN 1,750 MG in SODIUM CHLORIDE 0.9% 500 ML 500 ML IVPB SCH ×2 (09:01→21:46)
[2018-02-12 12:33] LABS: Glucose,Whole Blood 128 mg/dL (75-99)
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
--- NOTE | 2018-02-12 13:25 | P.PN ---
Subjective Progress Note Date: 02/12/18 This 42-year-old male patient is postop day #9 following his 2 vessel bypass surgery, off pump. Postop, the patient has been still intubated on mechanical ventilator due to complications of ARDS. On today's evaluation, I find this patient sedated with Diprivan and currently is on 50 mics of Diprivan for sedation. He is also paralyzed with Nimbex. He is calm and comfortable and synchronous with the mechanical ventilator. Earlier this morning he was an assist-control mode of ventilation with a tidal volume of 450, FiO2 of 50% with a PEEP of 13 and a respiratory rate of 34. He was on a I:E ratio of 1.2-1 and his inspiratory time was at 1.0 seconds. He had a blood gases earlier this morning that showed a pH of 7.42 with a pCO2 of 39 and pO2 of 77 and this was done earlier this morning and FiO2 of 50%. His chest x-ray showed a left lower lobe consolidation and ET tube was in a good location with diffuse groundglass changes throughout the lung hahn bilaterally consistent with ARDS. On examination, he had bilateral rhonchi and some limited expiratory wheeze. He underwent a bronchoscopy yesterday and the bronchioloalveolar lavage from left lower lobe is still pending for now and there is no microbial growth. However, there was copious amount of rest or secretions based on the operative report and the patient is running a low-grade fever with a T-max of 11.4. Based on all this, I left lower lobe pneumonia was suspected and I started this patient on IV meropenem. IV Zosyn on consult. Despite all this, he is hemodynamically stable. He is in a sinus rhythm. Sternum is stable clean and intact. No chest tubes are in place and all of the chest tubes have been removed. The neck fluid balance is 375 mL negative over the past 24 hours. He is on no pressors. He is tolerating his tube feedings which is in the form of vital at 30 mL an hour. Is producing adequate urine output. No other significant events overnight. His white cell count has been persistently elevated and remains elevated at 32.3. Hemoglobin stable at 12.1. On today's evaluation of 02/10/2018, the patient is postop day #10. The patient remains intubated on a mechanical ventilator. The patient is sedated and paralyzed. We are still having difficulties with oxygenation nontender the patient had developed post surgical ARDS and subsequently there is an indication of a left lower lobe pneumonia. The patient had a follow-up chest x- ray today that showed worsening in the consolidation of the left lower lobe. Earlier this morning, he was assist-control mode of ventilation at a PEEP of 14 , FiO2 of 80%, respiratory rate of 26 and tidal volume of 450. The morning. The peak air pressures around 33. His blood gases from today showed a pH of 7.31 with a pCO2 of 55 and pO2 of 86. Chest x-ray shows a dense consolidation and some volume loss in the left lower lobe. Based on this, I performed a bronchoscopy on this patient. Copious amount of purulent respiratory secretions was suctioned out from the left lower lobe and the amount was estimated to be around 30 mL of purulent material. I also performed segmental bronchial washings of the left lower lobe. The cultures will be sent. I started covering this patient with IV antibiotics and I put him on IV Merrem. This morning, he is afebrile however overnight he was spiking temperature of 100.0 with a T-max of 101.3. His white cell count is up to 34,000. Platelet counts are within normal limits. Hemodynamically stable on no pressors. Tolerating tube feeds. As mentioned, all of the chest tubes have been removed. On 02/11/2018 the patient is postop day #11. I performed a bronchoscopy on this patient yesterday and copious amount of purulent respiratory secretions were suctioned out from the patient's left lower lobe. Limited cultures indicating gram-positive cocci. There is also gram-positive cocci in the blood. We suspected the patient had a left lower lobe pneumonia with secondary septicemia. The patient is currently on Merrem and dose of vancomycin was given overnight. Overall oxidation improved following the bronchoscopy. This morning, the patient is on a tidal volume of 450, rate of 26, FiO2 of 40% to 14. Peak airway pressures around 31 with metastatic impression from 20. Blood gases from this morning showed a pH of 7.4 with a pCO2 of 42 and pO2 of 11. Chest x-ray shows improvement in the expression of the left lower lobe. Based on all this, I dropped down the PEEP to 12. Hemodynamically stable. He is in a normal sinus rhythm. Is producing adequate amount of urine output. White cell count remains elevated at 50.7 although somewhat improved compared to yesterday. Renal function is stable. The patient is currently afebrile. He is tolerating his tube feeds. Having regular bowel movements. His last temperature spike of 11.4 was from yesterday evening. No other significant events overnight. He is quite sedated on Diprivan at 50 mics. He was given a sedation holiday yesterday and he arouse and he was slightly agitated but cannot orotracheal tube and based on that he was placed back on sedation. On 02/12/2018 patient is postop day #12. The patient is doing well. The patient is sedated with Diprivan this morning however I'm in the process of taking him off the sedation and switching him to Precedex for sedation. The patient is still on mechanical ventilator. This morning's an assist-control at the rate of 26 right-sided volume of 450 and an FiO2 of 40% and a PEEP of 10. I the peak and static air pressures were not elevated and there were steadily declining. The patient's blood gas from this morning showed a pH of 7.43 with a pCO2 of 37 and pO2 of 98. Based on that, I dropped the PEEP down to 8 and then down to 5 cm of water and the patient was able to tolerate drop in the PEEP that was done over 6 hours and the saturation remains above 90%. I am at this point weaning the patient off the Diprivan and using Precedex for sedation. The patient is gradually arousing. Around half an hour ago, is opening his eyes and is following simple commands. Chest x-ray from today shows adequate expansion of both lungs and some limited infiltration seen in the left lung base. No new cultures and the previous coronary strep infection. The patient remains on a combination of IV Merrem and vancomycin. He is afebrile. On IV Solu-Medrol. He is tolerating his tube feeds via Dobbhoff. White cell count is gradually improving is down to 25. Hemoglobin stable at 9.4. Renal function is stable. No other significant events overnight. The neck fluid balance is +250 mL over the past 24 hours. Objective - Vital Signs Vital signs: Vital Signs Temp 98.6 F 02/12/18 12:00 Pulse 56 L 02/12/18 12:00 Resp 22 11/15/18 12:00 BP 96/59 02/11/18 17:00 Pulse Ox 93 L 02/12/18 12:00 Intake & Output 02/11/18 02/12/18 02/12/18 18:59 06:59 18:59 Intake Total 2024.016 2281.048 999 Output Total 1410 1265 505 Balance 421.031 7731.048 494 Weight 102.4 kg 102.7 kg Intake: IV 1426 1306 752 Dextrose 5%-0.45% NaCl 1, 570 550 200 000 ml @ 20 mls/hr IV . Q24H [facility] Rx#:[id number] Meropenem 1 gm In Sodium 200 100 Chloride 0.9% 100 ml @ 200 mls/hr IVPB Q8HR [facility] Rx#:[id number] NS 120 120 40 Pressure Bag 36 36 12 Vancomycin 1,750 mg In 500 Sodium Chloride 0.9% 500 ml 500 ml @ 167 mls/hr IVPB Q12H [facility] Rx#: [id number] Vancomycin 2,000 mg In 500 500 Sodium Chloride 0.9% 500 ml 500 ml @ 167 mls/hr IVPB ONCE ONE Rx#: [id number] Intake, IV Titration 386.016 358.048 Amount Propofol 1,000 mg In 386.016 358.048 Empty Bag 1 bag @ Titrate IV .Q0M [facility] Rx#: [id number] Tube Feeding 182 527 217 Other 30 90 30 Output: Urine 1410 1265 505 Other: Voiding Method Indwelling Catheter Indwelling Catheter Indwelling Catheter ABP, PAP, CO, CI - Last Documented Arterial Blood Pressure 121/71 Pulmonary Artery Pressure 36/26 Cardiac Output 6.4 Cardiac Index 2.9 - Exam Intubated on mechanical ventilator sedated and he is off paralysis , comfortable. Orotracheal and nasal Dobbhoff are both in place. The patient is gradually being weaned off Diprivan and is waking up from sedation for now. Head exam was generally normal. There was no scleral icterus or corneal arcus. Mucous membranes were moist. Neck was supple and without jugular venous distension, thyromegaly, or carotid bruits. Carotids were easily palpable bilaterally. There was no adenopathy. Lungs sounds are diminished and there is improvement in the breast on the left lung base compared to yesterday's examination. No significant rhonchi or any wheezing on today's evaluation. Cardiac exam revealed the PMI to be normally situated and sized. The rhythm was regular and no extrasystoles were noted during several minutes of auscultation. The first and second heart sounds were normal and physiologic splitting of the second heart sound was noted. There were no murmurs, rubs, clicks, or gallops. The patient is in sinus tachycardia. Abdominal exam revealed normal bowel sounds. The abdomen was soft, non-tender, and without masses, organomegaly, or appreciable enlargement of the abdominal aorta. Examination of the extremities revealed easily palpable radial, femoral and pedal pulses. There was no cyanosis, clubbing or edema. Examination of the skin revealed no evidence of significant rashes, suspicious appearing nevi or other concerning lesions. Sternum stable clean and intact Neurologically the patient is sedated and off paralysis for now - Labs CBC & Chem 7: 02/12/18 04:07 02/12/18 04:07 Labs: Abnormal Lab Results - Last 24 Hours (Table) 02/11/18 02/11/18 02/11/18 Range/Units 15:48 19:53 23:33 WBC (3.8-10.6) k/uL RBC (4.30-5.90) m/uL Hgb (13.0-17.5) gm/dL Hct (39.0-53.0) % Plt Count (150-450) k/uL Neutrophils # (1.3-7.7) k/uL Monocytes # (0-1.0) k/uL ABG Total CO2 (19-24) mmol/L ABG O2 Saturation (94-97) % Chloride (98-107) mmol/L BUN (9-20) mg/dL Glucose (74-99) mg/dL POC Glucose (mg/dL) 142 H 187 H 159 H (75-99) mg/dL Magnesium (1.6-2.3) mg/dL ALT (21-72) U/L Total Protein (6.3-8.2) g/dL Albumin (3.5-5.0) g/dL 02/12/18 02/12/18 02/12/18 Range/Units 03:30 04:07 04:07 WBC 25.3 H (3.8-10.6) k/uL RBC 3.05 L (4.30-5.90) m/uL Hgb 9.4 L (13.0-17.5) gm/dL Hct 29.3 L (39.0-53.0) % Plt Count 473 H (150-450) k/uL Neutrophils # 21.1 H (1.3-7.7) k/uL Monocytes # 1.3 H (0-1.0) k/uL ABG Total CO2 (19-24) mmol/L ABG O2 Saturation (94-97) % Chloride 111 H (98-107) mmol/L BUN 39 H (9-20) mg/dL Glucose 149 H (74-99) mg/dL POC Glucose (mg/dL) 143 H (75-99) mg/dL Magnesium 2.4 H (1.6-2.3) mg/dL ALT 96 H (21-72) U/L Total Protein 5.4 L (6.3-8.2) g/dL Albumin 2.7 L (3.5-5.0) g/dL 02/12/18 02/12/18 02/12/18 Range/Units 04:34 07:58 12:06 WBC (3.8-10.6) k/uL RBC (4.30-5.90) m/uL Hgb (13.0-17.5) gm/dL Hct (39.0-53.0) % Plt Count (150-450) k/uL Neutrophils # (1.3-7.7) k/uL Monocytes # (0-1.0) k/uL ABG Total CO2 26 H (19-24) mmol/L ABG O2 Saturation 98.1 H (94-97) % Chloride (98-107) mmol/L BUN (9-20) mg/dL Glucose (74-99) mg/dL POC Glucose (mg/dL) 151 H 128 H (75-99) mg/dL Magnesium (1.6-2.3) mg/dL ALT (21-72) U/L Total Protein (6.3-8.2) g/dL Albumin (3.5-5.0) g/dL Microbiology - Last 24 Hours (Table) 02/08/18 17:50 Blood Culture Gram Stain - Preliminary Blood Blood Culture - Preliminary Anaerobic Gram Positive Cocci 02/11/18 07:00 Blood Culture - Preliminary Blood No Growth after 24 hours 02/11/18 06:30 Blood Culture - Preliminary Blood No Growth after 24 hours 02/10/18 09:50 Acid Fast Bacilli Smear - Final Bronchial Washings - Left Acid Fast Bacilli Culture - Preliminary 02/06/18 12:00 Blood Culture - Preliminary Blood No Growth after 120 hours 02/08/18 10:50 Gram Stain - Final Bronchial Washings - Left Bronchial Washings Culture - Final 02/10/18 09:50 Gram Stain - Preliminary Bronchial Washings - Left Bronchial Washings Culture - Preliminary Assessment and Plan Plan: Assessment 1 coronary artery bypass surgery and the patient is postop day #12, status post off-pump 2 vessel bypass surgery 2 postoperative ARDS, remains intubated on mechanical ventilator. The patient was not extubated since his surgery. In addition he has developed left lower lobe pneumonia post bronchoscopy and removal of mucous plugs. I suspected and pneumococcal pneumonia and septicemia/bacteremia and cover this patient a combination of Merrem and vancomycin. Follow-up chest x-ray from today shows improvement in the left lower lobe pneumonia. 3 left lower lobe pneumonia, with secondary bacteremia, awaiting final cultures.. Patient shows improvement in his chest x-ray findings. The patient is afebrile. The patient is hemodynamically stable. The patient is on a combination of Merrem and vancomycin. 4 low-grade fever, episodic, currently afebrile. 5 history of left lower lobe atelectasis/collapse post bronchoscopy and removal of mucous plugs 6 COPD 7 sinus tachycardia, improved 8 enteral feeding via Dobbhoff for nutritional support 9 chronic leukocytosis, improving Plan The patient is being taken off Diprivan. When he was Precedex if needed for sedation. Continue vent support. Continue same antibiotic coverage for now. Drop the PEEP down to 5. Once fully awake recurrent proceed with checking weaning parameters and decide if there is any potential for further weaning/ spontaneous breathing trial. He is no significant amount of progress. The patient is hemodynamically stable. The patient's cardiac rhythm is sinus. His sepsis/bacteremia has been adequately treated. Continue same antibiotic coverage. Continue enteral feeding for now. Further recommendations are to follow based on his overall progress. This evaluation was on a more than 30 minutes in a patient was suffering from a post surgical ARDS/pneumonia. Time with Patient: Greater than 30
[2018-02-12 14:46] LABS: ABG Base Excess 1.3 mmol/L; ABG HCO3 24 mmol/L (21-25); ABG Oxygen Saturation 94.3 % (94-97); ABG PCO2 30 mmHg (35-45); ABG PH 7.52 (7.35-7.45); ABG PO2 67 mmHg (83-108); ABG TCO2 25 mmol/L (19-24)
[2018-02-12 15:40] LABS: Glucose,Whole Blood 132 mg/dL (75-99)
--- NOTE | 2018-02-12 16:16 | P.PN ---
Subjective There is no significant change in this patient's condition since remains stable cardiac-aguirre patient remains intubated no dysrhythmias are noted. Patient continues to intermittent febrile episodes Objective - Vital Signs Vital signs: Vital Signs Temp 98.6 F 02/12/18 12:00 Pulse 67 02/12/18 15:20 Resp 24 02/12/18 14:00 BP 96/59 02/11/18 17:00 Pulse Ox 93 L 02/12/18 14:00 Intake & Output 02/11/18 02/12/18 02/12/18 18:59 06:59 18:59 Intake Total 2024.016 2281.048 1506 Output Total 1410 1265 905 Balance 494.112 5651.048 601 Weight 102.4 kg 102.7 kg Intake: IV 1426 1306 1004 Dextrose 5%-0.45% NaCl 1, 570 550 400 000 ml @ 20 mls/hr IV . Q24H [facility] Rx#:[id number] Meropenem 1 gm In Sodium 200 100 Chloride 0.9% 100 ml @ 200 mls/hr IVPB Q8HR [facility] Rx#:[id number] NS 120 120 80 Pressure Bag 36 36 24 Vancomycin 1,750 mg In 500 Sodium Chloride 0.9% 500 ml 500 ml @ 167 mls/hr IVPB Q12H [facility] Rx#: [id number] Vancomycin 2,000 mg In 500 500 Sodium Chloride 0.9% 500 ml 500 ml @ 167 mls/hr IVPB ONCE ONE Rx#: [id number] Intake, IV Titration 386.016 358.048 100 Amount Propofol 1,000 mg In 386.016 358.048 100 Empty Bag 1 bag @ Titrate IV .Q0M COUNT [facility]CLUDES THE [facility] Rx#: [id number] Tube Feeding 182 527 372 Other 30 90 30 Output: Urine 1410 1265 905 Other: Voiding Method Indwelling Catheter Indwelling Catheter Indwelling Catheter ABP, PAP, CO, CI - Last Documented Arterial Blood Pressure 131/101 Pulmonary Artery Pressure 36/26 Cardiac Output 6.4 Cardiac Index 2.9 - Exam Patient remains intubated Patient's vital signs are reviewed. The patient is alert awake and in no acute distress. HEENT negative. Neck-supple no increase in JVP noted no carotid bruits noted. Chest-symmetrical. Heart-first and second heart sounds are normal. No S3 or S4 is noted. No significant murmurs are noted. Lungs bilateral good at entry is noted. Bilateral scattered rhonchi noted Abdomen-soft. Liver and spleen are not enlarged. The bowel sounds are normal. No tenderness noted Extremities-peripheral pulses since are 2+. No significant leg edema noted. Neuro-no significant gross abnormality noted. - Labs CBC & Chem 7: 02/12/18 04:07 02/12/18 04:07 Labs: Abnormal Lab Results - Last 24 Hours (Table) 02/10/18 02/11/18 02/11/18 Range/Units 09:50 19:53 23:33 WBC (3.8-10.6) k/uL RBC (4.30-5.90) m/uL Hgb (13.0-17.5) gm/dL Hct (39.0-53.0) % Plt Count (150-450) k/uL Neutrophils # (1.3-7.7) k/uL Monocytes # (0-1.0) k/uL ABG pH (7.35-7.45) ABG pCO2 (35-45) mmHg ABG pO2 (83-108) mmHg ABG Total CO2 (19-24) mmol/L ABG O2 Saturation (94-97) % Chloride (98-107) mmol/L BUN (9-20) mg/dL Glucose (74-99) mg/dL POC Glucose (mg/dL) 187 H 159 H (75-99) mg/dL Magnesium (1.6-2.3) mg/dL ALT (21-72) U/L Total Protein (6.3-8.2) g/dL Albumin (3.5-5.0) g/dL Viral Test See Below H 02/12/18 02/12/18 02/12/18 Range/Units 03:30 04:07 04:07 WBC 25.3 H (3.8-10.6) k/uL RBC 3.05 L (4.30-5.90) m/uL Hgb 9.4 L (13.0-17.5) gm/dL Hct 29.3 L (39.0-53.0) % Plt Count 473 H (150-450) k/uL Neutrophils # 21.1 H (1.3-7.7) k/uL Monocytes # 1.3 H (0-1.0) k/uL ABG pH (7.35-7.45) ABG pCO2 (35-45) mmHg ABG pO2 (83-108) mmHg ABG Total CO2 (19-24) mmol/L ABG O2 Saturation (94-97) % Chloride 111 H (98-107) mmol/L BUN 39 H (9-20) mg/dL Glucose 149 H (74-99) mg/dL POC Glucose (mg/dL) 143 H (75-99) mg/dL Magnesium 2.4 H (1.6-2.3) mg/dL ALT 96 H (21-72) U/L Total Protein 5.4 L (6.3-8.2) g/dL Albumin 2.7 L (3.5-5.0) g/dL Viral Test 02/12/18 02/12/18 02/12/18 Range/Units 04:34 07:58 12:06 WBC (3.8-10.6) k/uL RBC (4.30-5.90) m/uL Hgb (13.0-17.5) gm/dL Hct (39.0-53.0) % Plt Count (150-450) k/uL Neutrophils # (1.3-7.7) k/uL Monocytes # (0-1.0) k/uL ABG pH (7.35-7.45) ABG pCO2 (35-45) mmHg ABG pO2 (83-108) mmHg ABG Total CO2 26 H (19-24) mmol/L ABG O2 Saturation 98.1 H (94-97) % Chloride (98-107) mmol/L BUN (9-20) mg/dL Glucose (74-99) mg/dL POC Glucose (mg/dL) 151 H 128 H (75-99) mg/dL Magnesium (1.6-2.3) mg/dL ALT (21-72) U/L Total Protein (6.3-8.2) g/dL Albumin (3.5-5.0) g/dL Viral Test 02/12/18 02/12/18 Range/Units 14:44 15:26 WBC (3.8-10.6) k/uL RBC (4.30-5.90) m/uL Hgb (13.0-17.5) gm/dL Hct (39.0-53.0) % Plt Count (150-450) k/uL Neutrophils # (1.3-7.7) k/uL Monocytes # (0-1.0) k/uL ABG pH 7.52 H (7.35-7.45) ABG pCO2 30 L (35-45) mmHg ABG pO2 67 L (83-108) mmHg ABG Total CO2 25 H (19-24) mmol/L ABG O2 Saturation (94-97) % Chloride (98-107) mmol/L BUN (9-20) mg/dL Glucose (74-99) mg/dL POC Glucose (mg/dL) 132 H (75-99) mg/dL Magnesium (1.6-2.3) mg/dL ALT (21-72) U/L Total Protein (6.3-8.2) g/dL Albumin (3.5-5.0) g/dL Viral Test Microbiology - Last 24 Hours (Table) 02/06/18 12:00 Blood Culture - Final Blood No Growth after 144 hours 02/08/18 17:50 Blood Culture Gram Stain - Preliminary Blood Blood Culture - Preliminary Anaerobic Gram Positive Cocci 02/11/18 07:00 Blood Culture - Preliminary Blood No Growth after 24 hours 02/11/18 06:30 Blood Culture - Preliminary Blood No Growth after 24 hours 02/10/18 09:50 Acid Fast Bacilli Smear - Final Bronchial Washings - Left Acid Fast Bacilli Culture - Preliminary Assessment and Plan Assessment: This patient is status post coronary artery bypass surgery with acute respiratory failure cardiac-aguirre patient remains stable we will now follow the patient when necessary from cardiac point of view
[2018-02-12] MEDS ORDERED: FUROSEMIDE 10 MG/ML 4 ML VIAL IV STA (16:18)
[2018-02-12] MEDS: SENNOSIDES-DOCUSATE SODIUM 1 EACH TAB PO SCH (20:28)
[2018-02-12 20:34] LABS: Glucose,Whole Blood 140 mg/dL (75-99)
[2018-02-12] MEDS: INSULIN DETEMIR 100 UNIT/ML 10 ML VIAL SQ SCH (21:46)
[2018-02-12 23:54] LABS: Glucose,Whole Blood 142 mg/dL (75-99)
[2018-02-13] MEDS: PROPOFOL 1,000 MG in EMPTY BAG 1 BAG IV SCH ×3 (01:09→06:49)
[2018-02-13] MEDS: IPRATROPIUM-ALBUTEROL 3 ML NEB INHALATION SCH ×6 (03:33→23:39)
[2018-02-13 04:11] LABS: Glucose,Whole Blood 154 mg/dL (75-99)
[2018-02-13] MEDS: INSULIN ASPART 100 UNIT/ML 1 ML 10 ML VIAL SQ SCH ×5 (04:19→20:09)
[2018-02-13] MEDS: ARTIFICIAL TEARS-HYPROMELLOSE DROPS 15 ML BTL BOTH EYES SCH ×5 (04:20→19:34)
[2018-02-13 04:44] LABS: Ionized Calcium 5.3 mg/dL (4.5-5.3)
[2018-02-13 04:53] LABS: ALT 95 U/L (21-72); AST 31 U/L (17-59); Albumin 2.9 g/dL (3.5-5.0); Alkaline Phosphatase 55 U/L (38-126); Anion Gap 9 mmol/L; Blood Urea Nitrogen 35 mg/dL (9-20); Calcium 9.4 mg/dL (8.4-10.2); Carbon Dioxide 22 mmol/L (22-30); Chloride 108 mmol/L (98-107); Glucose 135 mg/dL (74-99); Magnesium 2.3 mg/dL (1.6-2.3); Phosphorus 5.1 mg/dL (2.5-4.5); Potassium 4.9 mmol/L (3.5-5.1); Sodium 139 mmol/L (137-145); Total Bilirubin 0.4 mg/dL (0.2-1.3); Total Protein 5.8 g/dL (6.3-8.2)
[2018-02-13 04:55] LABS: ABG Base Excess -0.1 mmol/L; ABG HCO3 24 mmol/L (21-25); ABG Oxygen Saturation 97.4 % (94-97); ABG PCO2 35 mmHg (35-45); ABG PH 7.45 (7.35-7.45); ABG PO2 89 mmHg (83-108); ABG TCO2 25 mmol/L (19-24)
[2018-02-13 04:56] LABS: Basophils # (A) 0.1 k/uL (0-0.2); Basophils % (A) 0 %; Eosinophils # (A) 0.1 k/uL (0-0.7); Eosinophils % (A) 0 %; HGB 10.3 gm/dL (13.0-17.5); Lymphocytes # (A) 2.8 k/uL (1.0-4.8); Lymphocytes % (A) 9 %; MCH 30.7 pg (25.0-35.0); MCHC 32.1 g/dL (31.0-37.0); MCV 95.5 fL (80.0-100.0); Mean Platelet Volume 8.2; Monocytes # (A) 1.8 k/uL (0-1.0); Monocytes % (A) 6 %; Neutrophils # (A) 24.8 k/uL (1.3-7.7); Neutrophils % (A) 83 %; Platelet Count 597 k/uL (150-450); RBC 3.34 m/uL (4.30-5.90); RDW 13.6 % (11.5-15.5); WBC 29.8 k/uL (3.8-10.6)
--- NOTE | 2018-02-13 06:55 | XR ---
EXAMINATION TYPE: XR chest 1V portable DATE OF EXAM: 02/13/2018 CLINICAL HISTORY: Difficulty breathing progress study. TECHNIQUE: Single AP portable upright view of the chest is obtained. COMPARISON: Chest x-ray from one day earlier and older studies FINDINGS: A left-sided PICC line, endotracheal tube, and weighted feeding catheter are all redemonst rated. Upper abdomen is not included to assess feeding catheter tip. Overlying sternal wires are rede monstrated. There is persistent cardiomegaly with worsening bibasilar opacity and central vascular co ngestion. Upper lungs remain clear without pneumothorax. IMPRESSION: Stable mild cardiomegaly with worsening central vascular and new small bilateral pleural effusions, correlate for CHF exacerbation. In addition there is interval development of bibasilar inf iltrate and/or atelectasis.
[2018-02-13] MEDS ORDERED: FUROSEMIDE 10 MG/ML 4 ML VIAL IV STA ×2 (07:32→13:27)
[2018-02-13] MEDS: BUDESONIDE 1 MG/2 ML NEBU INHALATION SCH ×2 (07:57→20:00)
[2018-02-13] MEDS: FORMOTEROL FUMARATE 20 MCG/2 ML NEBU INHALATION SCH ×2 (07:58→20:00)
--- NOTE | 2018-02-13 08:42 | P.PN ---
Subjective Progress Note Date: 02/13/18 This 42-year-old male patient is postop day #9 following his 2 vessel bypass surgery, off pump. Postop, the patient has been still intubated on mechanical ventilator due to complications of ARDS. On today's evaluation, I find this patient sedated with Diprivan and currently is on 50 mics of Diprivan for sedation. He is also paralyzed with Nimbex. He is calm and comfortable and synchronous with the mechanical ventilator. Earlier this morning he was an assist-control mode of ventilation with a tidal volume of 450, FiO2 of 50% with a PEEP of 13 and a respiratory rate of 34. He was on a I:E ratio of 1.2-1 and his inspiratory time was at 1.0 seconds. He had a blood gases earlier this morning that showed a pH of 7.42 with a pCO2 of 39 and pO2 of 77 and this was done earlier this morning and FiO2 of 50%. His chest x-ray showed a left lower lobe consolidation and ET tube was in a good location with diffuse groundglass changes throughout the lung hahn bilaterally consistent with ARDS. On examination, he had bilateral rhonchi and some limited expiratory wheeze. He underwent a bronchoscopy yesterday and the bronchioloalveolar lavage from left lower lobe is still pending for now and there is no microbial growth. However, there was copious amount of rest or secretions based on the operative report and the patient is running a low-grade fever with a T-max of 11.4. Based on all this, I left lower lobe pneumonia was suspected and I started this patient on IV meropenem. IV Zosyn on consult. Despite all this, he is hemodynamically stable. He is in a sinus rhythm. Sternum is stable clean and intact. No chest tubes are in place and all of the chest tubes have been removed. The neck fluid balance is 375 mL negative over the past 24 hours. He is on no pressors. He is tolerating his tube feedings which is in the form of vital at 30 mL an hour. Is producing adequate urine output. No other significant events overnight. His white cell count has been persistently elevated and remains elevated at 32.3. Hemoglobin stable at 12.1. On today's evaluation of 02/10/2018, the patient is postop day #10. The patient remains intubated on a mechanical ventilator. The patient is sedated and paralyzed. We are still having difficulties with oxygenation nontender the patient had developed post surgical ARDS and subsequently there is an indication of a left lower lobe pneumonia. The patient had a follow-up chest x- ray today that showed worsening in the consolidation of the left lower lobe. Earlier this morning, he was assist-control mode of ventilation at a PEEP of 14 , FiO2 of 80%, respiratory rate of 26 and tidal volume of 450. The morning. The peak air pressures around 33. His blood gases from today showed a pH of 7.31 with a pCO2 of 55 and pO2 of 86. Chest x-ray shows a dense consolidation and some volume loss in the left lower lobe. Based on this, I performed a bronchoscopy on this patient. Copious amount of purulent respiratory secretions was suctioned out from the left lower lobe and the amount was estimated to be around 30 mL of purulent material. I also performed segmental bronchial washings of the left lower lobe. The cultures will be sent. I started covering this patient with IV antibiotics and I put him on IV Merrem. This morning, he is afebrile however overnight he was spiking temperature of 100.0 with a T-max of 101.3. His white cell count is up to 34,000. Platelet counts are within normal limits. Hemodynamically stable on no pressors. Tolerating tube feeds. As mentioned, all of the chest tubes have been removed. On 02/11/2018 the patient is postop day #11. I performed a bronchoscopy on this patient yesterday and copious amount of purulent respiratory secretions were suctioned out from the patient's left lower lobe. Limited cultures indicating gram-positive cocci. There is also gram-positive cocci in the blood. We suspected the patient had a left lower lobe pneumonia with secondary septicemia. The patient is currently on Merrem and dose of vancomycin was given overnight. Overall oxidation improved following the bronchoscopy. This morning, the patient is on a tidal volume of 450, rate of 26, FiO2 of 40% to 14. Peak airway pressures around 31 with metastatic impression from 20. Blood gases from this morning showed a pH of 7.4 with a pCO2 of 42 and pO2 of 11. Chest x-ray shows improvement in the expression of the left lower lobe. Based on all this, I dropped down the PEEP to 12. Hemodynamically stable. He is in a normal sinus rhythm. Is producing adequate amount of urine output. White cell count remains elevated at 50.7 although somewhat improved compared to yesterday. Renal function is stable. The patient is currently afebrile. He is tolerating his tube feeds. Having regular bowel movements. His last temperature spike of 11.4 was from yesterday evening. No other significant events overnight. He is quite sedated on Diprivan at 50 mics. He was given a sedation holiday yesterday and he arouse and he was slightly agitated but cannot orotracheal tube and based on that he was placed back on sedation. On 02/12/2018 patient is postop day #12. The patient is doing well. The patient is sedated with Diprivan this morning however I'm in the process of taking him off the sedation and switching him to Precedex for sedation. The patient is still on mechanical ventilator. This morning's an assist-control at the rate of 26 right-sided volume of 450 and an FiO2 of 40% and a PEEP of 10. I the peak and static air pressures were not elevated and there were steadily declining. The patient's blood gas from this morning showed a pH of 7.43 with a pCO2 of 37 and pO2 of 98. Based on that, I dropped the PEEP down to 8 and then down to 5 cm of water and the patient was able to tolerate drop in the PEEP that was done over 6 hours and the saturation remains above 90%. I am at this point weaning the patient off the Diprivan and using Precedex for sedation. The patient is gradually arousing. Around half an hour ago, is opening his eyes and is following simple commands. Chest x-ray from today shows adequate expansion of both lungs and some limited infiltration seen in the left lung base. No new cultures and the previous coronary strep infection. The patient remains on a combination of IV Merrem and vancomycin. He is afebrile. On IV Solu-Medrol. He is tolerating his tube feeds via Dobbhoff. White cell count is gradually improving is down to 25. Hemoglobin stable at 9.4. Renal function is stable. No other significant events overnight. The neck fluid balance is +250 mL over the past 24 hours. On 02/13/2018 the patient is postop day #13. There has been steady improvement in his overall vascular status. Yesterday without too point with dropped the patient's PEEP down to 5 and FiO2 was kept at 40% with a tidal volume of 450 and the respiratory rate of 22. The patient was able to tolerate his vent setting without any major difficulties. He was given a sedation holiday and he got to the point where he was wide awake and comfortable and following commands and answering questions. Nevertheless he was profoundly weak and had a weak cough. I was not comfortable and extubating this patient even though his weaning parameters were good. However, his blood gases while being on a pressure support of 5 and a PEEP of 5 showed a component of respiratory alkalosis with a pH of 7.52 and a pCO2 of 30 and pO2 of 60 and the patient was becoming more tachypneic. Based on this, he was kept on sedation overnight and we're the process of repeating the weaning trial again this morning. On today' s chest x-ray, the patient has developed some limited bilateral lower lobe pulmonary infiltrates/atelectasis. Nevertheless, he does not have any significant respiratory secretions. He is on a combination of Merrem and vancomycin. The patient is hemodynamically stable. The patient is afebrile. White cell count is at 29.8. Morning blood gases showed a pH of 7.44 with a pCO2 of 35 and pO2 of 89. He is tolerating his enteral feeding for nutritional support. Developed a bowel movements. Surgical wound sites are dry clean and intact chest tubes have been removed. Hemoglobin stable. No other significant events overnight. I'm in the process of weaning the prevent and keeping the patient on low-dose Precedex. We will recheck his weaning parameters and assess his readiness to wean. Objective - Vital Signs Vital signs: Vital Signs Temp 98.8 F 02/13/18 04:00 Pulse 58 L 02/13/18 08:09 Resp 22 02/13/18 08:00 BP 96/59 02/11/18 17:00 Pulse Ox 97 02/13/18 08:00 Intake & Output 02/12/18 02/13/18 02/13/18 18:59 06:59 18:59 Intake Total 2189.494 6053.210 64 Output Total 1880 2370 350 Balance 78.023 -902.790 -286 Weight 100.6 kg Intake: IV 1136 496 33 Dextrose 5%-0.45% NaCl 1, 480 240 20 000 ml @ 20 mls/hr IV . Q24H [facility] Rx#:[id number] Meropenem 1 gm In Sodium 100 Chloride 0.9% 100 ml @ 200 mls/hr IVPB Q8HR [facility] Rx#:[id number] NS 120 120 10 Pressure Bag 36 36 3 Vancomycin 1,750 mg In 500 Sodium Chloride 0.9% 500 ml 500 ml @ 167 mls/hr IVPB Q12H [facility] Rx#: [id number] Intake, IV Titration 174.023 385.210 Amount Dexmedetomidine/0.9% NaCl 68.143 (Pmx) 400 mcg In Empty Bag 1 bag @ Titrate IV . Q0M [facility] Rx#:[id number] Propofol 1,000 mg In 174.023 317.067 Empty Bag 1 bag @ Titrate IV .Q0M [facility] Rx#: [id number] Tube Feeding 558 496 31 Other 90 90 Output: Urine 1880 2370 350 Other: Voiding Method Indwelling Catheter Indwelling Catheter ABP, PAP, CO, CI - Last Documented Arterial Blood Pressure 116/68 Pulmonary Artery Pressure 36/26 Cardiac Output 6.4 Cardiac Index 2.9 - Exam Intubated on mechanical ventilator sedated and he is off paralysis , comfortable. Orotracheal and nasal Dobbhoff are both in place. The patient is gradually being weaned off Diprivan and is waking up from sedation for now. Head exam was generally normal. There was no scleral icterus or corneal arcus. Mucous membranes were moist. Neck was supple and without jugular venous distension, thyromegaly, or carotid bruits. Carotids were easily palpable bilaterally. There was no adenopathy. Lungs sounds are diminished and there is improvement in the breast on the left lung base compared to yesterday's examination. No significant rhonchi or any wheezing on today's evaluation. Cardiac exam revealed the PMI to be normally situated and sized. The rhythm was regular and no extrasystoles were noted during several minutes of auscultation. The first and second heart sounds were normal and physiologic splitting of the second heart sound was noted. There were no murmurs, rubs, clicks, or gallops. The patient is in sinus tachycardia. Abdominal exam revealed normal bowel sounds. The abdomen was soft, non-tender, and without masses, organomegaly, or appreciable enlargement of the abdominal aorta. Examination of the extremities revealed easily palpable radial, femoral and pedal pulses. There was no cyanosis, clubbing or edema. Examination of the skin revealed no evidence of significant rashes, suspicious appearing nevi or other concerning lesions. Sternum stable clean and intact Neurologically the patient is sedated and off paralysis for now - Labs CBC & Chem 7: 02/13/18 04:05 02/13/18 04:05 Labs: Abnormal Lab Results - Last 24 Hours (Table) 02/10/18 02/12/18 02/12/18 Range/Units 09:50 12:06 14:44 WBC (3.8-10.6) k/uL RBC (4.30-5.90) m/uL Hgb (13.0-17.5) gm/dL Hct (39.0-53.0) % Plt Count (150-450) k/uL Neutrophils # (1.3-7.7) k/uL Monocytes # (0-1.0) k/uL ABG pH 7.52 H (7.35-7.45) ABG pCO2 30 L (35-45) mmHg ABG pO2 67 L (83-108) mmHg ABG Total CO2 25 H (19-24) mmol/L ABG O2 Saturation (94-97) % Chloride (98-107) mmol/L BUN (9-20) mg/dL Glucose (74-99) mg/dL POC Glucose (mg/dL) 128 H (75-99) mg/dL Phosphorus (2.5-4.5) mg/dL ALT (21-72) U/L Total Protein (6.3-8.2) g/dL Albumin (3.5-5.0) g/dL Viral Test See Below H 02/12/18 02/12/18 02/12/18 Range/Units 15:26 20:31 23:50 WBC (3.8-10.6) k/uL RBC (4.30-5.90) m/uL Hgb (13.0-17.5) gm/dL Hct (39.0-53.0) % Plt Count (150-450) k/uL Neutrophils # (1.3-7.7) k/uL Monocytes # (0-1.0) k/uL ABG pH (7.35-7.45) ABG pCO2 (35-45) mmHg ABG pO2 (83-108) mmHg ABG Total CO2 (19-24) mmol/L ABG O2 Saturation (94-97) % Chloride (98-107) mmol/L BUN (9-20) mg/dL Glucose (74-99) mg/dL POC Glucose (mg/dL) 132 H 140 H 142 H (75-99) mg/dL Phosphorus (2.5-4.5) mg/dL ALT (21-72) U/L Total Protein (6.3-8.2) g/dL Albumin (3.5-5.0) g/dL Viral Test 02/13/18 02/13/18 02/13/18 Range/Units 04:05 04:05 04:08 WBC 29.8 H (3.8-10.6) k/uL RBC 3.34 L (4.30-5.90) m/uL Hgb 10.3 L (13.0-17.5) gm/dL Hct 32.0 L (39.0-53.0) % Plt Count 597 H (150-450) k/uL Neutrophils # 24.8 H (1.3-7.7) k/uL Monocytes # 1.8 H (0-1.0) k/uL ABG pH (7.35-7.45) ABG pCO2 (35-45) mmHg ABG pO2 (83-108) mmHg ABG Total CO2 (19-24) mmol/L ABG O2 Saturation (94-97) % Chloride 108 H (98-107) mmol/L BUN 35 H (9-20) mg/dL Glucose 135 H (74-99) mg/dL POC Glucose (mg/dL) 154 H (75-99) mg/dL Phosphorus 5.1 H (2.5-4.5) mg/dL ALT 95 H (21-72) U/L Total Protein 5.8 L (6.3-8.2) g/dL Albumin 2.9 L (3.5-5.0) g/dL Viral Test 02/13/18 Range/Units 04:50 WBC (3.8-10.6) k/uL RBC (4.30-5.90) m/uL Hgb (13.0-17.5) gm/dL Hct (39.0-53.0) % Plt Count (150-450) k/uL Neutrophils # (1.3-7.7) k/uL Monocytes # (0-1.0) k/uL ABG pH (7.35-7.45) ABG pCO2 (35-45) mmHg ABG pO2 (83-108) mmHg ABG Total CO2 25 H (19-24) mmol/L ABG O2 Saturation 97.4 H (94-97) % Chloride (98-107) mmol/L BUN (9-20) mg/dL Glucose (74-99) mg/dL POC Glucose (mg/dL) (75-99) mg/dL Phosphorus (2.5-4.5) mg/dL ALT (21-72) U/L Total Protein (6.3-8.2) g/dL Albumin (3.5-5.0) g/dL Viral Test Microbiology - Last 24 Hours (Table) 02/06/18 12:00 Blood Culture - Final Blood No Growth after 144 hours 02/08/18 17:50 Blood Culture Gram Stain - Preliminary Blood Blood Culture - Preliminary Anaerobic Gram Positive Cocci 02/11/18 07:00 Blood Culture - Preliminary Blood No Growth after 24 hours 02/11/18 06:30 Blood Culture - Preliminary Blood No Growth after 24 hours Assessment and Plan Plan: Assessment 1 coronary artery bypass surgery and the patient is postop day #13, status post off-pump 2 vessel bypass surgery 2 postoperative ARDS, improving and the patient remains intubated on mechanical ventilator. Noted the patient also developed a left lower lobe pneumonia, thought to be related to beta hemolytic strep with a component of bacteremia. The patient had his ARDS complicated by left lower lobe pneumonia which obviously delayed the weaning process. Clinically is improving. He had therapy care was suctioning via bronchoscopy. He is back. He is on a combination of metoprolol and and vancomycin for now. He is also on systemic steroids. His PEEP has been drop down to 5 with an FiO2 of 40%. We will check his weaning parameters and decide on further weaning accordingly. 3 left lower lobe pneumonia, with secondary bacteremia, awaiting final cultures.. Patient shows improvement in his chest x-ray findings. The patient is afebrile. The patient is hemodynamically stable. The patient is on a combination of Merrem and vancomycin. 4 low-grade fever, episodic, currently afebrile. 5 history of left lower lobe atelectasis/collapse post bronchoscopy and removal of mucous plugs 6 COPD 7 sinus tachycardia, improved 8 enteral feeding via Dobbhoff for nutritional support 9 chronic leukocytosis, improving Plan Keep Precedex. Wean off Diprivan. Check weaning parameters. Assess readiness to wean. Assess coughing mechanism and ability to the rest or secretions. If weaning parameters are all good, we'll give the patient is point is breathing trial and decide on the weaning and extubation accordingly. Meanwhile, he will be given a dose of Lasix 40 mg IV push. Chest x-ray was noted. Blood gases was noted. Continue same antibiotic coverage. We'll continue to follow make further recommendations based on his progress. Case was discussed with the cardiothoracic surgeon. We will going to continue to follow up the case. This is a critically care evaluation was done more than 30 minutes. Time with Patient: Greater than 30
[2018-02-13] MEDS ORDERED: DEXMEDETOMIDINE/0.9% NACL(PMX) 400 MCG in EMPTY BAG 1 BAG IV SCH (08:46)
[2018-02-13] MEDS: MEROPENEM 1 GM in SODIUM CHLORIDE 0.9% 100 ML IVPB SCH ×2 (08:52→15:59)
[2018-02-13] MEDS: HEPARIN SODIUM,PORCINE 5,000 UNIT/ML 1 ML VIAL SQ SCH ×2 (08:54→15:59)
[2018-02-13] MEDS: CHLORHEXIDINE GLUCONATE 15 ML CUP MUCOUS MEM SCH ×2 (08:54→19:35)
[2018-02-13] MEDS: ASPIRIN 325 MG TAB PO SCH (08:54)
[2018-02-13] MEDS: CLOPIDOGREL 75 MG TAB PO SCH (08:54)
[2018-02-13] MEDS: ATORVASTATIN 40 MG TAB PO SCH (08:55)
[2018-02-13] MEDS: METOPROLOL TARTRATE 50 MG TAB PO SCH (08:55)
[2018-02-13] MEDS: methylPREDNISolone SOD SUCCI 40 MG/ML 1 ML VIAL IV SCH ×2 (08:55→15:59)
[2018-02-13] MEDS: amLODIPine 5 MG TAB PO SCH ×2 (08:55→19:40)
[2018-02-13] MEDS: PANTOPRAZOLE 40 MG/10 ML VIAL IVP SCH (08:55)
[2018-02-13] MEDS ORDERED: VANCOMYCIN TROUGH DUE 1 EACH MISC MISCELLANE ONE (09:00)
[2018-02-13 09:14] LABS: Glucose,Whole Blood 159 mg/dL (75-99)
[2018-02-13] MEDS: VANCOMYCIN 1,750 MG in SODIUM CHLORIDE 0.9% 500 ML 500 ML IVPB SCH ×2 (09:49→21:27)
[2018-02-13 10:04] LABS: ABG HCO3 23 mmol/L (21-25); ABG Oxygen Saturation 93.2 % (94-97); ABG PCO2 31 mmHg (35-45); ABG PH 7.49 (7.35-7.45); ABG PO2 64 mmHg (83-108); ABG TCO2 24 mmol/L (19-24)
[2018-02-13 12:02] LABS: Glucose,Whole Blood 164 mg/dL (75-99)
[2018-02-13 12:14] LABS: ABG Base Excess 1.8 mmol/L; ABG HCO3 25 mmol/L (21-25); ABG PCO2 29 mmHg (35-45); ABG PH 7.53 (7.35-7.45); ABG PO2 61 mmHg (83-108); ABG TCO2 25 mmol/L (19-24)
[2018-02-13] MEDS ORDERED: METOPROLOL TARTRATE 25 MG TAB PO STA (13:38)
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
[2018-02-13] MEDS: DEXTROSE 5%-0.45% NACL 1,000 ML IV SCH (16:06)
[2018-02-13 16:13] LABS: Glucose,Whole Blood 112 mg/dL (75-99)
[2018-02-13] MEDS: hydrALAZINE HCL 20 MG/ML 1 ML VIAL IVP PRN (18:42)
[2018-02-13] MEDS: SENNOSIDES-DOCUSATE SODIUM 1 EACH TAB PO SCH (19:41)
[2018-02-13 20:00] LABS: Glucose,Whole Blood 118 mg/dL (75-99)
[2018-02-13] MEDS ORDERED: METOPROLOL TARTRATE 25 MG TAB PO SCH (21:00)
[2018-02-13] MEDS: INSULIN DETEMIR 100 UNIT/ML 10 ML VIAL SQ SCH (21:18)
[2018-02-13] MEDS: HYDROmorphone 1 MG/ML 1 ML SYRINGE IVP PRN (22:27)
[2018-02-13] MEDS ORDERED: METOPROLOL TARTRATE 5 MG/5 ML VIAL IVP PRN (22:45)
[2018-02-14 00:04] LABS: Glucose,Whole Blood 103 mg/dL (75-99)
[2018-02-14] MEDS: ARTIFICIAL TEARS-HYPROMELLOSE DROPS 15 ML BTL BOTH EYES SCH (00:12)
[2018-02-14] MEDS: INSULIN ASPART 100 UNIT/ML 1 ML 10 ML VIAL SQ SCH ×6 (00:12→23:38)
--- NOTE | 2018-02-14 00:18 | P.PN ---
Subjective Progress Note Date: 02/12/18 Principal diagnosis: Non-ST elevated [place] status post coronary artery bypass graft. Mr. Castillo is a 42-year-old male with a past medical history of hypertension, hyperlipidemia, nicotine dependence, coronary artery disease with prior stenting performed in 2003 2004 in [place] coming into the hospital with a chief complaint of chest discomfort in the upper mid sternum. Patient describes it as severe tightness and heaviness and he was short of breath and diaphoretic. Patient pain was so severe that he was unable to speak at the time when he had the chest pain. In the ED patient had elevated troponins and started on IV heparin. Patient subsequently underwent cardiac cath which revealed a total occluded right coronary artery that appeared to be chronically occluded. There is also a complex lesion and in-stent restenosis of the proximal LAD. So he was recommended to get a coronary artery bypass graft that is scheduled for tomorrow morning. Patient has risk factors of smoking for the past 26 years almost 1 pack per day. 02/01/18 - patient is postop day 1. Patient is in the ICU currently on mechanical ventilation. He is sedated with propofol, Nimbex and fentanyl. Patient was hypoxemic on 100% FiO2 yesterday, which could be due to acute lung injury. So his ventilator settings have been adjusted by Dr. Gipson. He is still on Cardizem drip. On 02/02/2018 Patient is still on mechanical ventilator and sedated.. Currently on Cardizem drip. Also present on insulin drip. Dobbhoff tube was placed for nutrition. Chest x-ray showed left lower lobe atelectasis and infiltrate. Patient is with pleural chest tube. Mediastinal chest tube was removed. No fever noted. Pulmonary, CT surgery is following. 02/03/2018 Patient had postoperative hypoxemic respiratory failure due to suspected ARDS. Currently patient is on mechanical ventilator. Currently Cardizem drip is off. Feeding Dobbhoff tube. Currently patient is sedated. Review of systems could not be apparent from the patient Chest x-ray showed no acute cardiopulmonary process. 02/06/2018 Patient is currently intubated and sedated. Patient developed hypoxemic respiratory failure postoperatively likely due to ARDS. Patient has been afebrile. Otherwise still tachycardic. Metoprolol dose has been increased. Patient will be started on Lantus and insulin sliding scale. Will hold insulin drip Chest tube has been discontinued. Pulmonary and CT surgery is following. Urine culture is growing Klebsiella. 02/09/2018 remains paralyzed on Nimbex, sedated on diprovan. Remains vent dependent, FiO2 50%/+13 of PEEP. Hemoglobin 12.1. Chest x-ray reporting left lower lobe atelectasis versus pneumonia and associated effusion. Retrocardiac density. Underwent bronchoscopy yesterday, copious secretions, cultures currently reporting no microbial growth, suspected left lower lobe pneumonia. T -max 101.4. WBC 32.3. Sputum culture pending. Merrem initiated. Tolerating tube feeds with minimal to no residuals. 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 Currently maintained on mechanical ventilation with FiO2 decreased to 80%/+14 of PEEP . Chest x-ray reporting worsening left lower lobe consolidation .underwent bronchoscopy today, purulent mucous plugs suctioned from the left lower lobe. Maintained on IV antibiotics as per infectious disease. Nimbex off. T-max 101.3, WBC 34.4. Telemetry sinus rhythm. Potassium 5.9, redraw pending. 02/11/2018 remains vent dependent, FiO2 40%, PEEP decreased to +10. Chest x- ray reporting improvement of the left lower lobe. Preliminary bronch & blood cultures reporting gram-positive cocci. ABGs pending. Creamy cortes secretions suctioned from endotracheal tube. Telemetry sinus rhythm. WBC trending down, 30.7. T-max 101.4. Potassium down to 5.6. Remains off of Cleviprex. 02/12/2018 Patient is currently intubated. Weaning of sedation. FiO2 40% and PEEP of 10. Chest x-ray showed venous congestion without overt failure. Suspected mild left lower lobe atelectasis. Patient is being continued on meropenem and vancomycin. Patient has been afebrile. No other significant overnight changes. Current medications reviewed. Objective - Vital Signs Vital signs: Vital Signs Temp 98.3 F 02/12/18 04:00 Pulse 53 L 02/12/18 11:35 Resp 23 02/12/18 11:00 BP 96/59 02/11/18 17:00 Pulse Ox 94 L 02/12/18 11:00 Intake & Output 02/11/18 02/12/18 02/12/18 18:59 06:59 18:59 Intake Total 2024.016 2281.048 999 Output Total 1410 1265 505 Balance 845.549 4652.048 494 Weight 102.4 kg 102.7 kg Intake: IV 1426 1306 752 Dextrose 5%-0.45% NaCl 1, 570 550 200 000 ml @ 20 mls/hr IV . Q24H [facility] Rx#:[id number] Meropenem 1 gm In Sodium 200 100 Chloride 0.9% 100 ml @ 200 mls/hr IVPB Q8HR [facility] Rx#:[id number] NS 120 120 40 Pressure Bag 36 36 12 Vancomycin 1,750 mg In 500 Sodium Chloride 0.9% 500 ml 500 ml @ 167 mls/hr IVPB Q12H [facility] Rx#: [id number] Vancomycin 2,000 mg In 500 500 Sodium Chloride 0.9% 500 ml 500 ml @ 167 mls/hr IVPB [facility] Rx#: [id number] Intake, IV Titration 386.016 358.048 Amount Propofol 1,000 mg In 386.016 358.048 Empty Bag 1 bag @ Titrate IV .Q0M [facility] Rx#: [id number] Tube Feeding 182 527 217 Other 30 90 30 Output: Urine 1410 1265 505 Other: Voiding Method Indwelling Catheter Indwelling Catheter Indwelling Catheter ABP, PAP, CO, CI - Last Documented Arterial Blood Pressure 116/71 Pulmonary Artery Pressure 36/26 Cardiac Output 6.4 Cardiac Index 2.9 - Exam GENERAL: Patient is mechanically ventilated and sedated. Able to open eyes with verbal commands. HEENT: Endotracheal tube and orogastric tube in place CARDIOVASCULAR: S1 and S2 present. No murmurs, rubs, or gallops. PULMONARY: Diminished breath sounds at the lower lung bases. No crackles or wheezes. ABDOMEN: Soft, nontender, nondistended, normoactive bowel sounds. No palpable organomegaly. EXTREMITIES: Mild cyanosis of the ear lobules. No edema. NEUROLOGICAL: Could not be assessed as he is sedated SKIN: No rashes. - Labs CBC & Chem 7: 02/13/18 04:05 02/13/18 04:05 Labs: Abnormal Lab Results - Last 24 Hours (Table) 02/11/18 02/11/18 02/11/18 Range/Units 15:48 19:53 23:33 WBC (3.8-10.6) k/uL RBC (4.30-5.90) m/uL Hgb (13.0-17.5) gm/dL Hct (39.0-53.0) % Plt Count (150-450) k/uL Neutrophils # (1.3-7.7) k/uL Monocytes # (0-1.0) k/uL ABG Total CO2 (19-24) mmol/L ABG O2 Saturation (94-97) % Chloride (98-107) mmol/L BUN (9-20) mg/dL Glucose (74-99) mg/dL POC Glucose (mg/dL) 142 H 187 H 159 H (75-99) mg/dL Magnesium (1.6-2.3) mg/dL ALT (21-72) U/L Total Protein (6.3-8.2) g/dL Albumin (3.5-5.0) g/dL 02/12/18 02/12/18 02/12/18 Range/Units 03:30 04:07 04:07 WBC 25.3 H (3.8-10.6) k/uL RBC 3.05 L (4.30-5.90) m/uL Hgb 9.4 L (13.0-17.5) gm/dL Hct 29.3 L (39.0-53.0) % Plt Count 473 H (150-450) k/uL Neutrophils # 21.1 H (1.3-7.7) k/uL Monocytes # 1.3 H (0-1.0) k/uL ABG Total CO2 (19-24) mmol/L ABG O2 Saturation (94-97) % Chloride 111 H (98-107) mmol/L BUN 39 H (9-20) mg/dL Glucose 149 H (74-99) mg/dL POC Glucose (mg/dL) 143 H (75-99) mg/dL Magnesium 2.4 H (1.6-2.3) mg/dL ALT 96 H (21-72) U/L Total Protein 5.4 L (6.3-8.2) g/dL Albumin 2.7 L (3.5-5.0) g/dL 02/12/18 02/12/18 02/12/18 Range/Units 04:34 07:58 12:06 WBC (3.8-10.6) k/uL RBC (4.30-5.90) m/uL Hgb (13.0-17.5) gm/dL Hct (39.0-53.0) % Plt Count (150-450) k/uL Neutrophils # (1.3-7.7) k/uL Monocytes # (0-1.0) k/uL ABG Total CO2 26 H (19-24) mmol/L ABG O2 Saturation 98.1 H (94-97) % Chloride (98-107) mmol/L BUN (9-20) mg/dL Glucose (74-99) mg/dL POC Glucose (mg/dL) 151 H 128 H (75-99) mg/dL Magnesium (1.6-2.3) mg/dL ALT (21-72) U/L Total Protein (6.3-8.2) g/dL Albumin (3.5-5.0) g/dL Microbiology - Last 24 Hours (Table) 02/11/18 07:00 Blood Culture - Preliminary Blood No Growth after 24 hours 02/11/18 06:30 Blood Culture - Preliminary Blood No Growth after 24 hours 02/10/18 09:50 Acid Fast Bacilli Smear - Final Bronchial Washings - Left Acid Fast Bacilli Culture - Preliminary 02/06/18 12:00 Blood Culture - Preliminary Blood No Growth after 120 hours 02/08/18 10:50 Gram Stain - Final Bronchial Washings - Left Bronchial Washings Culture - Final 02/10/18 09:50 Gram Stain - Preliminary Bronchial Washings - Left Bronchial Washings Culture - Preliminary Assessment and Plan Assessment: Status post two-vessel coronary artery bypass grafting - postop day 12 Postoperative Acute hypoxic respiratory- likely due to ARDS Left lower lobe pneumonia Acute coronary syndrome/non-ST elevated [place] Current smoker with a 26 pack years History of left lower lobe atelectasis/collapse post bronchoscopy and removal of mucous plugs Hypertension Obesity Generalized anxiety Chronic leukocytosis DVT prophylaxis Plan: Patient will be continued on mechanical ventilation as per pulmonary. Continue with antibiotics in the form of meropenem and vancomycin. Continue with breathing treatments and IV steroids. Patient is also on amiodarone drip. Continue with aspirin statins and metoprolol. Pulmonary and CT surgery is following. Further recommendations based on the clinical course. Time with Patient: Greater than 30
[2018-02-14] MEDS: HEPARIN SODIUM,PORCINE 5,000 UNIT/ML 1 ML VIAL SQ SCH ×4 (00:23→23:38)
--- NOTE | 2018-02-14 00:23 | P.PN ---
Subjective Progress Note Date: 02/13/18 Principal diagnosis: Non-ST elevated NV status post coronary artery bypass graft. Mr. Castillo is a 42-year-old male with a past medical history of hypertension, hyperlipidemia, nicotine dependence, coronary artery disease with prior stenting performed in 2003 2004 in [place] coming into the hospital with a chief complaint of chest discomfort in the upper mid sternum. Patient describes it as severe tightness and heaviness and he was short of breath and diaphoretic. Patient pain was so severe that he was unable to speak at the time when he had the chest pain. In the ED patient had elevated troponins and started on IV heparin. Patient subsequently underwent cardiac cath which revealed a total occluded right coronary artery that appeared to be chronically occluded. There is also a complex lesion and in-stent restenosis of the proximal LAD. So he was recommended to get a coronary artery bypass graft that is scheduled for tomorrow morning. Patient has risk factors of smoking for the past 26 years almost 1 pack per day. 02/01/18 - patient is postop day 1. Patient is in the ICU currently on mechanical ventilation. He is sedated with propofol, Nimbex and fentanyl. Patient was hypoxemic on 100% FiO2 yesterday, which could be due to acute lung injury. So his ventilator settings have been adjusted by Dr. Gipson. He is still on Cardizem drip. On 02/02/2018 Patient is still on mechanical ventilator and sedated.. Currently on Cardizem drip. Also present on insulin drip. Dobbhoff tube was placed for nutrition. Chest x-ray showed left lower lobe atelectasis and infiltrate. Patient is with pleural chest tube. Mediastinal chest tube was removed. No fever noted. Pulmonary, CT surgery is following. 02/03/2018 Patient had postoperative hypoxemic respiratory failure due to suspected ARDS. Currently patient is on mechanical ventilator. Currently Cardizem drip is off. Feeding Dobbhoff tube. Currently patient is sedated. Review of systems could not be apparent from the patient Chest x-ray showed no acute cardiopulmonary process. 02/06/2018 Patient is currently intubated and sedated. Patient developed hypoxemic respiratory failure postoperatively likely due to ARDS. Patient has been afebrile. Otherwise still tachycardic. Metoprolol dose has been increased. Patient will be started on Lantus and insulin sliding scale. Will hold insulin drip Chest tube has been discontinued. Pulmonary and CT surgery is following. Urine culture is growing Klebsiella. 02/09/2018 remains paralyzed on Nimbex, sedated on diprovan. Remains vent dependent, FiO2 50%/+13 of PEEP. Hemoglobin 12.1. Chest x-ray reporting left lower lobe atelectasis versus pneumonia and associated effusion. Retrocardiac density. Underwent bronchoscopy yesterday, copious secretions, cultures currently reporting no microbial growth, suspected left lower lobe pneumonia. T -max 101.4. WBC 32.3. Sputum culture pending. Merrem initiated. Tolerating tube feeds with minimal to no residuals. 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 Currently maintained on mechanical ventilation with FiO2 decreased to 80%/+14 of PEEP . Chest x-ray reporting worsening left lower lobe consolidation .underwent bronchoscopy today, purulent mucous plugs suctioned from the left lower lobe. Maintained on IV antibiotics as per infectious disease. Nimbex off. T-max 101.3, WBC 34.4. Telemetry sinus rhythm. Potassium 5.9, redraw pending. 02/11/2018 remains vent dependent, FiO2 40%, PEEP decreased to +10. Chest x- ray reporting improvement of the left lower lobe. Preliminary bronch & blood cultures reporting gram-positive cocci. ABGs pending. Creamy cortes secretions suctioned from endotracheal tube. Telemetry sinus rhythm. WBC trending down, 30.7. T-max 101.4. Potassium down to 5.6. Remains off of Cleviprex. 02/12/2018 Patient is currently intubated. Weaning of sedation. FiO2 40% and PEEP of 10. Chest x-ray showed venous congestion without overt failure. Suspected mild left lower lobe atelectasis. Patient is being continued on meropenem and vancomycin. Patient has been afebrile. No other significant overnight changes. 02/13/2018 Patient was successfully extubated today. Currently on BiPAP machine. Patient is awake and able to follow verbal commands. No fever no chills. Patient will be continued on antibiotics and breathing treatments. Continue with oxygen therapy. Continue on nutrition with Dobbhoff tube. Chest x-ray showed stable mild cardiomegaly with worsening central vascular and new small bilateral pleural effusions, correlate for CHF exacerbation. Patient has been afebrile no other acute overnight issues.. Current medications reviewed. Objective - Vital Signs Vital signs: Vital Signs Temp 99 F 02/13/18 12:00 Pulse 96 02/13/18 15:00 Resp 19 02/13/18 15:00 BP 96/59 02/11/18 17:00 Pulse Ox 97 02/13/18 15:00 Intake & Output 02/12/18 02/13/18 02/13/18 18:59 06:59 18:59 Intake Total 8644.045 8107.210 1261.429 Output Total 1880 2370 3725 Balance 78.023 -902.790 -2463.571 Weight 100.6 kg 100.6 kg Intake: IV 1136 496 304 Dextrose 5%-0.45% NaCl 1, 480 240 100 000 ml @ 20 mls/hr IV . Q24H [facility] Rx#:[id number] Meropenem 1 gm In Sodium 100 100 Chloride 0.9% 100 ml @ 200 mls/hr IVPB Q8HR [facility] Rx#:[id number] NS 120 120 80 Pressure Bag 36 36 24 Vancomycin 1,750 mg In 500 Sodium Chloride 0.9% 500 ml 500 ml @ 167 mls/hr IVPB Q12H [facility] Rx#: [id number] Intake, IV Titration 174.023 385.210 563.429 Amount Dexmedetomidine/0.9% NaCl 68.143 (Pmx) 400 mcg In Empty Bag 1 bag @ Titrate IV . Q0M [facility] Rx#:[id number] Dexmedetomidine/0.9% NaCl 5.944 (Pmx) 400 mcg In Empty Bag 1 bag @ Titrate IV . Q0M [facility] Rx#:[id number] Propofol 1,000 mg In 174.023 317.067 56.485 Empty Bag 1 bag @ Titrate IV .Q0M [facility] Rx#: [id number] Vancomycin 1,750 mg In 501 Sodium Chloride 0.9% 500 ml 500 ml @ 167 mls/hr IVPB Q12H [facility] Rx#: [id number] Tube Feeding 550 496 279 Other 90 90 115 Output: Urine 1880 2370 3725 Other: Voiding Method Indwelling Catheter Indwelling Catheter Indwelling Catheter ABP, PAP, CO, CI - Last Documented Arterial Blood Pressure 162/81 Pulmonary Artery Pressure 36/26 Cardiac Output 6.4 Cardiac Index 2.9 - Exam GENERAL: Patient is currently extubated on BiPAP now. Able to open eyes and follows verbal commands. HEENT: Endotracheal tube and orogastric tube in place CARDIOVASCULAR: S1 and S2 present. No murmurs, rubs, or gallops. PULMONARY: Diminished breath sounds at the lower lung bases. No crackles or wheezes. ABDOMEN: Soft, nontender, nondistended, normoactive bowel sounds. No palpable organomegaly. EXTREMITIES: Mild cyanosis of the ear lobules. No edema. NEUROLOGICAL: Able to move all his extremities SKIN: No rashes. - Labs CBC & Chem 7: 02/13/18 04:05 02/13/18 04:05 Labs: Abnormal Lab Results - Last 24 Hours (Table) 02/12/18 02/12/18 02/12/18 Range/Units 15:26 20:31 23:50 WBC (3.8-10.6) k/uL RBC (4.30-5.90) m/uL Hgb (13.0-17.5) gm/dL Hct (39.0-53.0) % Plt Count (150-450) k/uL Neutrophils # (1.3-7.7) k/uL Monocytes # (0-1.0) k/uL ABG pH (7.35-7.45) ABG pCO2 (35-45) mmHg ABG pO2 (83-108) mmHg ABG Total CO2 (19-24) mmol/L ABG O2 Saturation (94-97) % Chloride (98-107) mmol/L BUN (9-20) mg/dL Glucose (74-99) mg/dL POC Glucose (mg/dL) 132 H 140 H 142 H (75-99) mg/dL Phosphorus (2.5-4.5) mg/dL ALT (21-72) U/L Total Protein (6.3-8.2) g/dL Albumin (3.5-5.0) g/dL 02/13/18 02/13/18 02/13/18 Range/Units 04:05 04:05 04:08 WBC 29.8 H (3.8-10.6) k/uL RBC 3.34 L (4.30-5.90) m/uL Hgb 10.3 L (13.0-17.5) gm/dL Hct 32.0 L (39.0-53.0) % Plt Count 597 H (150-450) k/uL Neutrophils # 24.8 H (1.3-7.7) k/uL Monocytes # 1.8 H (0-1.0) k/uL ABG pH (7.35-7.45) ABG pCO2 (35-45) mmHg ABG pO2 (83-108) mmHg ABG Total CO2 (19-24) mmol/L ABG O2 Saturation (94-97) % Chloride 108 H (98-107) mmol/L BUN 35 H (9-20) mg/dL Glucose 135 H (74-99) mg/dL POC Glucose (mg/dL) 154 H (75-99) mg/dL Phosphorus 5.1 H (2.5-4.5) mg/dL ALT 95 H (21-72) U/L Total Protein 5.8 L (6.3-8.2) g/dL Albumin 2.9 L (3.5-5.0) g/dL 02/13/18 02/13/18 02/13/18 Range/Units 04:50 09:11 10:02 WBC (3.8-10.6) k/uL RBC (4.30-5.90) m/uL Hgb (13.0-17.5) gm/dL Hct (39.0-53.0) % Plt Count (150-450) k/uL Neutrophils # (1.3-7.7) k/uL Monocytes # (0-1.0) k/uL ABG pH 7.49 H (7.35-7.45) ABG pCO2 31 L (35-45) mmHg ABG pO2 64 L (83-108) mmHg ABG Total CO2 25 H (19-24) mmol/L ABG O2 Saturation 97.4 H 93.2 L (94-97) % Chloride (98-107) mmol/L BUN (9-20) mg/dL Glucose (74-99) mg/dL POC Glucose (mg/dL) 159 H (75-99) mg/dL Phosphorus (2.5-4.5) mg/dL ALT (21-72) U/L Total Protein (6.3-8.2) g/dL Albumin (3.5-5.0) g/dL 02/13/18 02/13/18 Range/Units 11:58 12:11 WBC (3.8-10.6) k/uL RBC (4.30-5.90) m/uL Hgb (13.0-17.5) gm/dL Hct (39.0-53.0) % Plt Count (150-450) k/uL Neutrophils # (1.3-7.7) k/uL Monocytes # (0-1.0) k/uL ABG pH 7.53 H (7.35-7.45) ABG pCO2 29 L (35-45) mmHg ABG pO2 61 L (83-108) mmHg ABG Total CO2 25 H (19-24) mmol/L ABG O2 Saturation 93.0 L (94-97) % Chloride (98-107) mmol/L BUN (9-20) mg/dL Glucose (74-99) mg/dL POC Glucose (mg/dL) 164 H (75-99) mg/dL Phosphorus (2.5-4.5) mg/dL ALT (21-72) U/L Total Protein (6.3-8.2) g/dL Albumin (3.5-5.0) g/dL Microbiology - Last 24 Hours (Table) 02/10/18 09:50 Gram Stain - Final Bronchial Washings - Left Bronchial Washings Culture - Final 02/11/18 07:00 Blood Culture - Preliminary Blood No Growth after 48 hours 02/11/18 06:30 Blood Culture - Preliminary Blood No Growth after 48 hours 02/06/18 12:00 Blood Culture - Final Blood No Growth after 144 hours 02/08/18 17:50 Blood Culture Gram Stain - Preliminary Blood Blood Culture - Preliminary Anaerobic Gram Positive Cocci Assessment and Plan Assessment: Status post two-vessel coronary artery bypass grafting - postop day 13 Postoperative Acute hypoxic respiratory failure- likely due to ARDS. Extubated on 02/13/2018 Left lower lobe pneumonia Acute coronary syndrome/non-ST elevated NV Current smoker with a 26 pack years History of left lower lobe atelectasis/collapse post bronchoscopy and removal of mucous plugs Hypertension Obesity Generalized anxiety Chronic leukocytosis DVT prophylaxis Plan: Patient will be continued on BiPAP and oxygen therapy. Continue with antibiotics in the form of meropenem and vancomycin. Continue with breathing treatments and IV steroids. Patient is also on amiodarone drip. Continue with aspirin statins and metoprolol. Pulmonary and CT surgery is following. Further recommendations based on the clinical course. Time with Patient: Greater than 30
[2018-02-14] MEDS: MEROPENEM 1 GM in SODIUM CHLORIDE 0.9% 100 ML IVPB SCH ×3 (00:24→16:18)
[2018-02-14] MEDS: methylPREDNISolone SOD SUCCI 40 MG/ML 1 ML VIAL IV SCH ×2 (00:24→08:15)
[2018-02-14] MEDS: HYDROmorphone 1 MG/ML 1 ML SYRINGE IVP PRN ×3 (00:55→10:38)
[2018-02-14 02:56] LABS: Basophils # (A) 0.2 k/uL (0-0.2); Basophils % (A) 0 %; Eosinophils # (A) 0.1 k/uL (0-0.7); Eosinophils % (A) 0 %; HCT 36.6 % (39.0-53.0); HGB 11.9 gm/dL (13.0-17.5); Lymphocytes # (A) 3.5 k/uL (1.0-4.8); Lymphocytes % (A) 9 %; MCH 30.6 pg (25.0-35.0); MCHC 32.6 g/dL (31.0-37.0); MCV 93.9 fL (80.0-100.0); Mean Platelet Volume 8.6; Monocytes # (A) 2.9 k/uL (0-1.0); Monocytes % (A) 7 %; Neutrophils # (A) 34.1 k/uL (1.3-7.7); Neutrophils % (A) 83 %; Platelet Count 577 k/uL (150-450); RDW 13.6 % (11.5-15.5); WBC 41.2 k/uL (3.8-10.6)
[2018-02-14 03:17] LABS: Ionized Calcium 5.5 mg/dL (4.5-5.3)
[2018-02-14 03:29] LABS: ALT 115 U/L (21-72); AST 47 U/L (17-59); Albumin 3.4 g/dL (3.5-5.0); Alkaline Phosphatase 66 U/L (38-126); Anion Gap 9 mmol/L; Blood Urea Nitrogen 34 mg/dL (9-20); Calcium 10.1 mg/dL (8.4-10.2); Carbon Dioxide 26 mmol/L (22-30); Chloride 107 mmol/L (98-107); Glucose 90 mg/dL (74-99); Phosphorus 3.3 mg/dL (2.5-4.5); Potassium 4.1 mmol/L (3.5-5.1); Sodium 142 mmol/L (137-145); Total Bilirubin 0.9 mg/dL (0.2-1.3); Total Protein 6.7 g/dL (6.3-8.2)
[2018-02-14] MEDS: IPRATROPIUM-ALBUTEROL 3 ML NEB INHALATION SCH ×6 (03:33→23:31)
[2018-02-14 04:32] LABS: Glucose,Whole Blood 111 mg/dL (75-99)
[2018-02-14] MEDS: BUDESONIDE 1 MG/2 ML NEBU INHALATION SCH ×2 (06:04→19:31)
[2018-02-14] MEDS: FORMOTEROL FUMARATE 20 MCG/2 ML NEBU INHALATION SCH ×2 (06:04→19:31)
--- NOTE | 2018-02-14 07:02 | XR ---
EXAMINATION TYPE: XR chest 1V portable DATE OF EXAM: 02/14/2018 HISTORY: post cardiac surgery. REFERENCE: Previous study dated 02/13/2018. FINDINGS: There has been a midline sternotomy. The patient has been extubated. Heart size upper limit s of normal. There is minimal, bibasilar airspace disease. I could not exclude small effusions. Overa ll appearance has improved. IMPRESSION: IMPROVED AERATION, BOTH LUNG BASES.
[2018-02-14] MEDS ORDERED: METOPROLOL TARTRATE 5 MG/5 ML VIAL IVP SCH (08:00)
[2018-02-14] MEDS: PANTOPRAZOLE 40 MG/10 ML VIAL IVP SCH (08:15)
[2018-02-14] MEDS: CLOPIDOGREL 75 MG TAB PO SCH (08:51)
[2018-02-14] MEDS: amLODIPine 5 MG TAB PO SCH ×2 (08:51→20:42)
[2018-02-14] MEDS: ATORVASTATIN 40 MG TAB PO SCH (08:52)
[2018-02-14] MEDS: ASPIRIN 325 MG TAB PO SCH (08:52)
[2018-02-14] MEDS ORDERED: FUROSEMIDE 10 MG/ML 2 ML VIAL IV ONE (09:16)
[2018-02-14] MEDS: CHLORHEXIDINE GLUCONATE 15 ML CUP MUCOUS MEM SCH ×2 (09:49→20:36)
[2018-02-14] MEDS: VANCOMYCIN 1,750 MG in SODIUM CHLORIDE 0.9% 500 ML 500 ML IVPB SCH ×2 (09:49→22:05)
[2018-02-14] MEDS ORDERED: METOPROLOL TARTRATE 25 MG TAB PO SCH ×2 (11:28→21:00)
[2018-02-14 11:48] LABS: Glucose,Whole Blood 116 mg/dL (75-99)
[2018-02-14] MEDS ORDERED: METOPROLOL TARTRATE 25 MG TAB PO STA (12:54)
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
--- NOTE | 2018-02-14 17:20 | P.PN ---
Subjective Progress Note Date: 02/14/18 Principal diagnosis: This 42-year-old male patient is postop day #9 following his 2 vessel bypass surgery, off pump. Postop, the patient has been still intubated on mechanical ventilator due to complications of ARDS. On today's evaluation, I find this patient sedated with Diprivan and currently is on 50 mics of Diprivan for sedation. He is also paralyzed with Nimbex. He is calm and comfortable and synchronous with the mechanical ventilator. Earlier this morning he was an assist-control mode of ventilation with a tidal volume of 450, FiO2 of 50% with a PEEP of 13 and a respiratory rate of 34. He was on a I:E ratio of 1.2-1 and his inspiratory time was at 1.0 seconds. He had a blood gases earlier this morning that showed a pH of 7.42 with a pCO2 of 39 and pO2 of 77 and this was done earlier this morning and FiO2 of 50%. His chest x-ray showed a left lower lobe consolidation and ET tube was in a good location with diffuse groundglass changes throughout the lung hahn bilaterally consistent with ARDS. On examination, he had bilateral rhonchi and some limited expiratory wheeze. He underwent a bronchoscopy yesterday and the bronchioloalveolar lavage from left lower lobe is still pending for now and there is no microbial growth. However, there was copious amount of rest or secretions based on the operative report and the patient is running a low-grade fever with a T-max of 11.4. Based on all this, I left lower lobe pneumonia was suspected and I started this patient on IV meropenem. IV Zosyn on consult. Despite all this, he is hemodynamically stable. He is in a sinus rhythm. Sternum is stable clean and intact. No chest tubes are in place and all of the chest tubes have been removed. The neck fluid balance is 375 mL negative over the past 24 hours. He is on no pressors. He is tolerating his tube feedings which is in the form of vital at 30 mL an hour. Is producing adequate urine output. No other significant events overnight. His white cell count has been persistently elevated and remains elevated at 32.3. Hemoglobin stable at 12.1. On today's evaluation of 02/10/2018, the patient is postop day #10. The patient remains intubated on a mechanical ventilator. The patient is sedated and paralyzed. We are still having difficulties with oxygenation nontender the patient had developed post surgical ARDS and subsequently there is an indication of a left lower lobe pneumonia. The patient had a follow-up chest x- ray today that showed worsening in the consolidation of the left lower lobe. Earlier this morning, he was assist-control mode of ventilation at a PEEP of 14 , FiO2 of 80%, respiratory rate of 26 and tidal volume of 450. The morning. The peak air pressures around 33. His blood gases from today showed a pH of 7.31 with a pCO2 of 55 and pO2 of 86. Chest x-ray shows a dense consolidation and some volume loss in the left lower lobe. Based on this, I performed a bronchoscopy on this patient. Copious amount of purulent respiratory secretions was suctioned out from the left lower lobe and the amount was estimated to be around 30 mL of purulent material. I also performed segmental bronchial washings of the left lower lobe. The cultures will be sent. I started covering this patient with IV antibiotics and I put him on IV Merrem. This morning, he is afebrile however overnight he was spiking temperature of 100.0 with a T-max of 101.3. His white cell count is up to 34,000. Platelet counts are within normal limits. Hemodynamically stable on no pressors. Tolerating tube feeds. As mentioned, all of the chest tubes have been removed. On 02/11/2018 the patient is postop day #11. I performed a bronchoscopy on this patient yesterday and copious amount of purulent respiratory secretions were suctioned out from the patient's left lower lobe. Limited cultures indicating gram-positive cocci. There is also gram-positive cocci in the blood. We suspected the patient had a left lower lobe pneumonia with secondary septicemia. The patient is currently on Merrem and dose of vancomycin was given overnight. Overall oxidation improved following the bronchoscopy. This morning, the patient is on a tidal volume of 450, rate of 26, FiO2 of 40% to 14. Peak airway pressures around 31 with metastatic impression from 20. Blood gases from this morning showed a pH of 7.4 with a pCO2 of 42 and pO2 of 11. Chest x-ray shows improvement in the expression of the left lower lobe. Based on all this, I dropped down the PEEP to 12. Hemodynamically stable. He is in a normal sinus rhythm. Is producing adequate amount of urine output. White cell count remains elevated at 50.7 although somewhat improved compared to yesterday. Renal function is stable. The patient is currently afebrile. He is tolerating his tube feeds. Having regular bowel movements. His last temperature spike of 11.4 was from yesterday evening. No other significant events overnight. He is quite sedated on Diprivan at 50 mics. He was given a sedation holiday yesterday and he arouse and he was slightly agitated but cannot orotracheal tube and based on that he was placed back on sedation. On 02/12/2018 patient is postop day #12. The patient is doing well. The patient is sedated with Diprivan this morning however I'm in the process of taking him off the sedation and switching him to Precedex for sedation. The patient is still on mechanical ventilator. This morning's an assist-control at the rate of 26 right-sided volume of 450 and an FiO2 of 40% and a PEEP of 10. I the peak and static air pressures were not elevated and there were steadily declining. The patient's blood gas from this morning showed a pH of 7.43 with a pCO2 of 37 and pO2 of 98. Based on that, I dropped the PEEP down to 8 and then down to 5 cm of water and the patient was able to tolerate drop in the PEEP that was done over 6 hours and the saturation remains above 90%. I am at this point weaning the patient off the Diprivan and using Precedex for sedation. The patient is gradually arousing. Around half an hour ago, is opening his eyes and is following simple commands. Chest x-ray from today shows adequate expansion of both lungs and some limited infiltration seen in the left lung base. No new cultures and the previous coronary strep infection. The patient remains on a combination of IV Merrem and vancomycin. He is afebrile. On IV Solu-Medrol. He is tolerating his tube feeds via [place]. White cell count is gradually improving is down to 25. Hemoglobin stable at 9.4. Renal function is stable. No other significant events overnight. The neck fluid balance is +250 mL over the past 24 hours. On 02/13/2018 the patient is postop day #13. There has been steady improvement in his overall vascular status. Yesterday without too point with dropped the patient's PEEP down to 5 and FiO2 was kept at 40% with a tidal volume of 450 and the respiratory rate of 22. The patient was able to tolerate his vent setting without any major difficulties. He was given a sedation holiday and he got to the point where he was wide awake and comfortable and following commands and answering questions. Nevertheless he was profoundly weak and had a weak cough. I was not comfortable and extubating this patient even though his weaning parameters were good. However, his blood gases while being on a pressure support of 5 and a PEEP of 5 showed a component of respiratory alkalosis with a pH of 7.52 and a pCO2 of 30 and pO2 of 60 and the patient was becoming more tachypneic. Based on this, he was kept on sedation overnight and we're the process of repeating the weaning trial again this morning. On today' s chest x-ray, the patient has developed some limited bilateral lower lobe pulmonary infiltrates/atelectasis. Nevertheless, he does not have any significant respiratory secretions. He is on a combination of Merrem and vancomycin. The patient is hemodynamically stable. The patient is afebrile. White cell count is at 29.8. Morning blood gases showed a pH of 7.44 with a pCO2 of 35 and pO2 of 89. He is tolerating his enteral feeding for nutritional support. Developed a bowel movements. Surgical wound sites are dry clean and intact chest tubes have been removed. Hemoglobin stable. No other significant events overnight. I'm in the process of weaning the prevent and keeping the patient on low-dose Precedex. We will recheck his weaning parameters and assess his readiness to wean. Patient seen today 02/14/2018 in follow-up in the intensive care unit. This is postoperative day #14. He is currently resting comfortably in bed. He is awake and alert in no acute distress. He has some ongoing hoarseness. He is currently maintaining O2 saturations in the 90s on 5 L/m per nasal cannula. He' s been afebrile. He is currently in sinus rhythm. His chest x-ray showing improved aeration in both lungs. Follow-up blood cultures reveal no growth after 72 hours. White count 41.2. Hemoglobin 11.9. Creatinine 0.71. He remains on DuoNeb inhalations, Pulmicort and Perforomist inhalations. He is currently on vancomycin and meropenem. We decreased his IV Solu-Medrol. He was given additional Lasix this morning. Remains in a negative balance. Objective - Vital Signs Vital signs: Vital Signs Temp 98.6 F 02/14/18 16:00 Pulse 112 H 02/14/18 16:00 Resp 24 02/14/18 16:00 BP 149/104 02/14/18 16:00 Pulse Ox 94 L 02/14/18 16:00 Intake & Output 02/13/18 02/14/18 02/14/18 18:59 06:59 18:59 Intake Total 1460.429 929 859 Output Total 4975 2545 1925 Balance -3514.571 -1616 -1066 Weight 100.6 kg 93.6 kg Intake: IV 503 929 859 Dextrose 5%-0.45% NaCl 1, 160 260 160 000 ml @ 20 mls/hr IV . Q24H [facility] Rx#:[id number] Meropenem 1 gm In Sodium 200 100 Chloride 0.9% 100 ml @ 200 mls/hr IVPB Q8HR [facility] Rx#:[id number] NS 110 130 90 Pressure Bag 33 39 9 Vancomycin 1,750 mg In 500 500 Sodium Chloride 0.9% 500 ml 500 ml @ 167 mls/hr IVPB Q12H [facility] Rx#: [id number] Intake, IV Titration 563.429 Amount Dexmedetomidine/0.9% NaCl 5.944 (Pmx) 400 mcg In Empty Bag 1 bag @ Titrate IV . Q0M [facility] Rx#:[id number] Propofol 1,000 mg In 56.485 Empty Bag 1 bag @ Titrate IV .Q0M [facility] Rx#: [id number] Vancomycin 1,750 mg In 501 Sodium Chloride 0.9% 500 ml 500 ml @ 167 mls/hr IVPB Q12H [facility] Rx#: [id number] Tube Feeding 279 Other 115 Output: Urine 4975 2545 1925 Other: Voiding Method Indwelling Catheter Indwelling Catheter Indwelling Catheter ABP, PAP, CO, CI - Last Documented Arterial Blood Pressure 100/64 Pulmonary Artery Pressure 36/26 Cardiac Output 6.4 Cardiac Index 2.9 - Exam Awake and alert in no acute distress. Maintaining good O2 saturations in the 90s on 5 L/m per nasal cannula. Head exam was generally normal. There was no scleral icterus or corneal arcus. Mucous membranes were moist. Neck was supple and without jugular venous distension, thyromegaly, or carotid bruits. Carotids were easily palpable bilaterally. There was no adenopathy. Lungs sounds are diminished and there is improvement in the breast on the left lung base compared to yesterday's examination. No significant rhonchi or any wheezing on today's evaluation. Cardiac exam revealed the PMI to be normally situated and sized. The rhythm was regular and no extrasystoles were noted during several minutes of auscultation. The first and second heart sounds were normal and physiologic splitting of the second heart sound was noted. There were no murmurs, rubs, clicks, or gallops. The patient is in sinus tachycardia. Abdominal exam revealed normal bowel sounds. The abdomen was soft, non-tender, and without masses, organomegaly, or appreciable enlargement of the abdominal aorta. Examination of the extremities revealed easily palpable radial, femoral and pedal pulses. There was no cyanosis, clubbing or edema. Examination of the skin revealed no evidence of significant rashes, suspicious appearing nevi or other concerning lesions. Sternum stable clean and intact Neurologically alert and oriented. - Labs CBC & Chem 7: 02/14/18 02:35 02/14/18 02:35 Labs: Abnormal Lab Results - Last 24 Hours (Table) 02/13/18 02/14/18 02/14/18 Range/Units 19:53 00:02 02:35 WBC (3.8-10.6) k/uL RBC (4.30-5.90) m/uL Hgb (13.0-17.5) gm/dL Hct (39.0-53.0) % Plt Count (150-450) k/uL Neutrophils # (1.3-7.7) k/uL Monocytes # (0-1.0) k/uL BUN 34 H (9-20) mg/dL POC Glucose (mg/dL) 118 H 103 H (75-99) mg/dL Ionized Calcium Maren 5.5 H (4.5-5.3) mg/dL ALT 115 H (21-72) U/L Albumin 3.4 L (3.5-5.0) g/dL 02/14/18 02/14/18 02/14/18 Range/Units 02:35 04:06 11:45 WBC 41.2 H (3.8-10.6) k/uL RBC 3.90 L (4.30-5.90) m/uL Hgb 11.9 L (13.0-17.5) gm/dL Hct 36.6 L (39.0-53.0) % Plt Count 577 H (150-450) k/uL Neutrophils # 34.1 H (1.3-7.7) k/uL Monocytes # 2.9 H (0-1.0) k/uL BUN (9-20) mg/dL POC Glucose (mg/dL) 111 H 116 H (75-99) mg/dL Ionized Calcium Maren (4.5-5.3) mg/dL ALT (21-72) U/L Albumin (3.5-5.0) g/dL Microbiology - Last 24 Hours (Table) 02/11/18 07:00 Blood Culture - Preliminary Blood No Growth after 72 hours 02/11/18 06:30 Blood Culture - Preliminary Blood No Growth after 72 hours Assessment and Plan Assessment: Impression: #1 Acute non-ST segment elevation myocardial infarction. #2 Coronary artery disease with 100% occluded right coronary artery possibly chronic. There is also in-stent restenosis of the LAD with 95% occlusion. Status post coronary artery bypass grafting, postoperative day #14. #3 postoperative ARDS, an expected outcome, improving and the patient remains intubated on mechanical ventilator. Noted the patient also developed a left lower lobe pneumonia, thought to be related to beta hemolytic strep with a component of bacteremia. The patient had his ARDS complicated by left lower lobe pneumonia which obviously delayed the weaning process. Successfully extubated and currently on oxygen at 5 L/m per nasal cannula. #4 left lower lobe pneumonia, with secondary bacteremia, awaiting final cultures.. Patient shows improvement in his chest x-ray findings. The patient is afebrile. The patient is hemodynamically stable. The patient is on a combination of Merrem and vancomycin. #5 Previous history of coronary artery disease with stent placement to the LAD. #6 Hypertension. #7 Chronic and ongoing tobacco dependence with a component of chronic obstructive pulmonary disease. FEV1 value 50% of predicted. #8 Obesity. #9 Anxiety. Plan: The patient was seen and evaluated by Dr. Atkinson. Chest x-ray, labs reviewed. He is currently maintaining good O2 saturations in the 90s on 5 L/m per nasal cannula. Chest x-ray shows improvement. Continue antibiotics. We'll decrease the IV Solu-Medrol to 40 mg daily. Additional Lasix given today. We will continue to follow and make further recommendations based on his clinical status. I, the cosigning physician, performed a history & physical examination of the patient. Lungs sounds with faint crackles in the bilateral posterior bases. Maintaining good O2 saturations in the 90s on 2 L/m per nasal cannula. I discussed the assessment and plan of care with my nurse practitioner, Faviola Luna. I attest to the above consultation as dictated by her.
[2018-02-14 18:43] LABS: Glucose,Whole Blood 96 mg/dL (75-99)
[2018-02-14] MEDS: DEXTROSE 5%-0.45% NACL 1,000 ML IV SCH (20:34)
[2018-02-14] MEDS: METOPROLOL TARTRATE 50 MG TAB PO SCH (20:42)
[2018-02-14] MEDS: SENNOSIDES-DOCUSATE SODIUM 1 EACH TAB PO SCH (20:42)
[2018-02-14] MEDS: INSULIN DETEMIR 100 UNIT/ML 10 ML VIAL SQ SCH (20:47)
[2018-02-14 20:48] LABS: Glucose,Whole Blood 103 mg/dL (75-99)
[2018-02-14] MEDS ORDERED: methylPREDNISolone SOD SUCCI 40 MG/ML 1 ML VIAL IV SCH (21:00)
[2018-02-14] MEDS ORDERED: HALOPERIDOL LACTATE 5 MG/ML 1 ML VIAL IVP PRN (21:15)
[2018-02-14 23:40] LABS: Glucose,Whole Blood 102 mg/dL (75-99)
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
[2018-02-15] MEDS: MEROPENEM 1 GM in SODIUM CHLORIDE 0.9% 100 ML IVPB SCH ×3 (01:43→16:22)
[2018-02-15] MEDS: hydrALAZINE HCL 20 MG/ML 1 ML VIAL IVP PRN (02:17)
[2018-02-15] MEDS: IPRATROPIUM-ALBUTEROL 3 ML NEB INHALATION SCH ×6 (03:32→23:30)
[2018-02-15 05:07] LABS: HCT 35.9 % (39.0-53.0); HGB 11.9 gm/dL (13.0-17.5); MCH 31.3 pg (25.0-35.0); MCHC 33.2 g/dL (31.0-37.0); MCV 94.2 fL (80.0-100.0); Mean Platelet Volume 7.4; Platelet Count 672 k/uL (150-450); RBC 3.81 m/uL (4.30-5.90); WBC 30.2 k/uL (3.8-10.6)
[2018-02-15 05:13] LABS: Ionized Calcium 5.4 mg/dL (4.5-5.3)
[2018-02-15 05:24] LABS: ALT 96 U/L (21-72); AST 30 U/L (17-59); Albumin 3.5 g/dL (3.5-5.0); Alkaline Phosphatase 62 U/L (38-126); Anion Gap 10 mmol/L; Blood Urea Nitrogen 31 mg/dL (9-20); Calcium 9.7 mg/dL (8.4-10.2); Carbon Dioxide 23 mmol/L (22-30); Chloride 110 mmol/L (98-107); Glucose 108 mg/dL (74-99); Phosphorus 3.6 mg/dL (2.5-4.5); Potassium 3.4 mmol/L (3.5-5.1); Sodium 143 mmol/L (137-145); Total Bilirubin 1.2 mg/dL (0.2-1.3); Total Protein 6.6 g/dL (6.3-8.2)
[2018-02-15] MEDS: INSULIN ASPART 100 UNIT/ML 1 ML 10 ML VIAL SQ SCH ×3 (05:40→18:45)
[2018-02-15] MEDS ORDERED: POTASSIUM CHLORIDE 20 MEQ in WATER FOR INJECTION 1 100ML.BAG IVPB ONE (05:44)
[2018-02-15 06:19] LABS: Glucose,Whole Blood 102 mg/dL (75-99)
--- NOTE | 2018-02-15 06:44 | XR ---
EXAMINATION TYPE: XR chest 1V portable DATE OF EXAM: 02/15/2018 HISTORY: post cardiac surgery. REFERENCE: Previous study dated 02/14/2018. FINDINGS: There has been a midline sternotomy. Heart size upper limits of normal. There is some right basilar airspace disease. There is also minima l left basilar airspace disease. I suspect small effusions. IMPRESSION: 1. CONTINUING BIBASILAR AIRSPACE DISEASE. 2. I SUSPECT SMALL, BILATERAL EFFUSIONS.
[2018-02-15] MEDS: FORMOTEROL FUMARATE 20 MCG/2 ML NEBU INHALATION SCH ×2 (06:58→19:00)
[2018-02-15] MEDS: BUDESONIDE 1 MG/2 ML NEBU INHALATION SCH ×2 (06:58→19:00)
[2018-02-15] MEDS: methylPREDNISolone SOD SUCCI 40 MG/ML 1 ML VIAL IV SCH (07:36)
[2018-02-15] MEDS: HEPARIN SODIUM,PORCINE 5,000 UNIT/ML 1 ML VIAL SQ SCH ×2 (07:37→16:22)
[2018-02-15] MEDS: PANTOPRAZOLE 40 MG/10 ML VIAL IVP SCH (07:37)
[2018-02-15] MEDS: amLODIPine 5 MG TAB PO SCH ×2 (07:55→21:57)
[2018-02-15] MEDS: ATORVASTATIN 40 MG TAB PO SCH (07:55)
[2018-02-15] MEDS: METOPROLOL TARTRATE 50 MG TAB PO SCH ×2 (07:55→21:57)
[2018-02-15] MEDS: CLOPIDOGREL 75 MG TAB PO SCH (07:56)
[2018-02-15] MEDS: ASPIRIN 325 MG TAB PO SCH (07:56)
[2018-02-15] MEDS: CHLORHEXIDINE GLUCONATE 15 ML CUP MUCOUS MEM SCH ×2 (07:56→21:57)
[2018-02-15] MEDS ORDERED: POTASSIUM CHLORIDE 20 MEQ in WATER FOR INJECTION 1 100ML.BAG IVPB STA (08:26)
[2018-02-15] MEDS ORDERED: FUROSEMIDE 10 MG/ML 4 ML VIAL IV STA (09:46)
[2018-02-15] MEDS: VANCOMYCIN 1,750 MG in SODIUM CHLORIDE 0.9% 500 ML 500 ML IVPB SCH ×2 (09:53→21:59)
[2018-02-15 10:19] LABS: Band Neutrophils % 1 %; Lymphocytes # (M) 6.64 k/uL (1.0-4.8); Metamyelocytes % 1 %; Monocytes # (M) 1.81 k/uL (0-1.0); Myelocytes % 1 %; Neutrophils % (M) 72 %; Nucleated Red Blood Cells 0 /100 WBC (0-0); Total Cells Counted 200
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
[2018-02-15 12:40] LABS: Glucose,Whole Blood 163 mg/dL (75-99)
[2018-02-15] MEDS: DEXTROSE 5%-0.45% NACL 1,000 ML IV SCH (12:44)
--- NOTE | 2018-02-15 15:31 | P.PN ---
Subjective Progress Note Date: 02/15/18 This 42-year-old male patient is postop day #9 following his 2 vessel bypass surgery, off pump. Postop, the patient has been still intubated on mechanical ventilator due to complications of ARDS. On today's evaluation, I find this patient sedated with Diprivan and currently is on 50 mics of Diprivan for sedation. He is also paralyzed with Nimbex. He is calm and comfortable and synchronous with the mechanical ventilator. Earlier this morning he was an assist-control mode of ventilation with a tidal volume of 450, FiO2 of 50% with a PEEP of 13 and a respiratory rate of 34. He was on a I:E ratio of 1.2-1 and his inspiratory time was at 1.0 seconds. He had a blood gases earlier this morning that showed a pH of 7.42 with a pCO2 of 39 and pO2 of 77 and this was done earlier this morning and FiO2 of 50%. His chest x-ray showed a left lower lobe consolidation and ET tube was in a good location with diffuse groundglass changes throughout the lung hahn bilaterally consistent with ARDS. On examination, he had bilateral rhonchi and some limited expiratory wheeze. He underwent a bronchoscopy yesterday and the bronchioloalveolar lavage from left lower lobe is still pending for now and there is no microbial growth. However, there was copious amount of rest or secretions based on the operative report and the patient is running a low-grade fever with a T-max of 11.4. Based on all this, I left lower lobe pneumonia was suspected and I started this patient on IV meropenem. IV Zosyn on consult. Despite all this, he is hemodynamically stable. He is in a sinus rhythm. Sternum is stable clean and intact. No chest tubes are in place and all of the chest tubes have been removed. The neck fluid balance is 375 mL negative over the past 24 hours. He is on no pressors. He is tolerating his tube feedings which is in the form of vital at 30 mL an hour. Is producing adequate urine output. No other significant events overnight. His white cell count has been persistently elevated and remains elevated at 32.3. Hemoglobin stable at 12.1. On today's evaluation of 02/10/2018, the patient is postop day #10. The patient remains intubated on a mechanical ventilator. The patient is sedated and paralyzed. We are still having difficulties with oxygenation nontender the patient had developed post surgical ARDS and subsequently there is an indication of a left lower lobe pneumonia. The patient had a follow-up chest x- ray today that showed worsening in the consolidation of the left lower lobe. Earlier this morning, he was assist-control mode of ventilation at a PEEP of 14 , FiO2 of 80%, respiratory rate of 26 and tidal volume of 450. The morning. The peak air pressures around 33. His blood gases from today showed a pH of 7.31 with a pCO2 of 55 and pO2 of 86. Chest x-ray shows a dense consolidation and some volume loss in the left lower lobe. Based on this, I performed a bronchoscopy on this patient. Copious amount of purulent respiratory secretions was suctioned out from the left lower lobe and the amount was estimated to be around 30 mL of purulent material. I also performed segmental bronchial washings of the left lower lobe. The cultures will be sent. I started covering this patient with IV antibiotics and I put him on IV Merrem. This morning, he is afebrile however overnight he was spiking temperature of 100.0 with a T-max of 101.3. His white cell count is up to 34,000. Platelet counts are within normal limits. Hemodynamically stable on no pressors. Tolerating tube feeds. As mentioned, all of the chest tubes have been removed. On 02/11/2018 the patient is postop day #11. I performed a bronchoscopy on this patient yesterday and copious amount of purulent respiratory secretions were suctioned out from the patient's left lower lobe. Limited cultures indicating gram-positive cocci. There is also gram-positive cocci in the blood. We suspected the patient had a left lower lobe pneumonia with secondary septicemia. The patient is currently on Merrem and dose of vancomycin was given overnight. Overall oxidation improved following the bronchoscopy. This morning, the patient is on a tidal volume of 450, rate of 26, FiO2 of 40% to 14. Peak airway pressures around 31 with metastatic impression from 20. Blood gases from this morning showed a pH of 7.4 with a pCO2 of 42 and pO2 of 11. Chest x-ray shows improvement in the expression of the left lower lobe. Based on all this, I dropped down the PEEP to 12. Hemodynamically stable. He is in a normal sinus rhythm. Is producing adequate amount of urine output. White cell count remains elevated at 50.7 although somewhat improved compared to yesterday. Renal function is stable. The patient is currently afebrile. He is tolerating his tube feeds. Having regular bowel movements. His last temperature spike of 11.4 was from yesterday evening. No other significant events overnight. He is quite sedated on Diprivan at 50 mics. He was given a sedation holiday yesterday and he arouse and he was slightly agitated but cannot orotracheal tube and based on that he was placed back on sedation. On 02/12/2018 patient is postop day #12. The patient is doing well. The patient is sedated with Diprivan this morning however I'm in the process of taking him off the sedation and switching him to Precedex for sedation. The patient is still on mechanical ventilator. This morning's an assist-control at the rate of 26 right-sided volume of 450 and an FiO2 of 40% and a PEEP of 10. I the peak and static air pressures were not elevated and there were steadily declining. The patient's blood gas from this morning showed a pH of 7.43 with a pCO2 of 37 and pO2 of 98. Based on that, I dropped the PEEP down to 8 and then down to 5 cm of water and the patient was able to tolerate drop in the PEEP that was done over 6 hours and the saturation remains above 90%. I am at this point weaning the patient off the Diprivan and using Precedex for sedation. The patient is gradually arousing. Around half an hour ago, is opening his eyes and is following simple commands. Chest x-ray from today shows adequate expansion of both lungs and some limited infiltration seen in the left lung base. No new cultures and the previous coronary strep infection. The patient remains on a combination of IV Merrem and vancomycin. He is afebrile. On IV Solu-Medrol. He is tolerating his tube feeds via Dobbhoff. White cell count is gradually improving is down to 25. Hemoglobin stable at 9.4. Renal function is stable. No other significant events overnight. The neck fluid balance is +250 mL over the past 24 hours. On 02/13/2018 the patient is postop day #13. There has been steady improvement in his overall vascular status. Yesterday without too point with dropped the patient's PEEP down to 5 and FiO2 was kept at 40% with a tidal volume of 450 and the respiratory rate of 22. The patient was able to tolerate his vent setting without any major difficulties. He was given a sedation holiday and he got to the point where he was wide awake and comfortable and following commands and answering questions. Nevertheless he was profoundly weak and had a weak cough. I was not comfortable and extubating this patient even though his weaning parameters were good. However, his blood gases while being on a pressure support of 5 and a PEEP of 5 showed a component of respiratory alkalosis with a pH of 7.52 and a pCO2 of 30 and pO2 of 60 and the patient was becoming more tachypneic. Based on this, he was kept on sedation overnight and we're the process of repeating the weaning trial again this morning. On today' s chest x-ray, the patient has developed some limited bilateral lower lobe pulmonary infiltrates/atelectasis. Nevertheless, he does not have any significant respiratory secretions. He is on a combination of Merrem and vancomycin. The patient is hemodynamically stable. The patient is afebrile. White cell count is at 29.8. Morning blood gases showed a pH of 7.44 with a pCO2 of 35 and pO2 of 89. He is tolerating his enteral feeding for nutritional support. Developed a bowel movements. Surgical wound sites are dry clean and intact chest tubes have been removed. Hemoglobin stable. No other significant events overnight. I'm in the process of weaning the prevent and keeping the patient on low-dose Precedex. We will recheck his weaning parameters and assess his readiness to wean. Patient seen today 02/14/2018 in follow-up in the intensive care unit. This is postoperative day #14. He is currently resting comfortably in bed. He is awake and alert in no acute distress. He has some ongoing hoarseness. He is currently maintaining O2 saturations in the 90s on 5 L/m per nasal cannula. He' s been afebrile. He is currently in sinus rhythm. His chest x-ray showing improved aeration in both lungs. Follow-up blood cultures reveal no growth after 72 hours. White count 41.2. Hemoglobin 11.9. Creatinine 0.71. He remains on DuoNeb inhalations, Pulmicort and Perforomist inhalations. He is currently on vancomycin and meropenem. We decreased his IV Solu-Medrol. He was given additional Lasix this morning. Remains in a negative balance. On 02/15/2018 I'm seeing this patient in intensive care unit for a follow-up. The patient is postop day #15. The patient is currently on room air. Sternum stable clean and intact. Overnight he had some delirium and for that reason he was given IV Haldol. Currently he is more oriented however on and off I feel it is still foggy. There is obvious motor weakness in all 4 extremities and he is gradually improving. Unable to move him up on a chair today. No fever. No chills. Chest x-ray still showing pulmonary vessel congestion and patient will be given another dose of Lasix and the patient has been negative fluid balance over the past 24-48 hours. The patient is also on IV Solu-Medrol 40 mg every 24 hours this was tapered today. He is receiving Levemir insulin 10 units daily at bedtime. The patient is also on a combination of vancomycin and meropenem. Repeat cultures were sent. Infectious diseases managing the patient 's antibiotic coverage. Overall his antibiotic coverage can be simplified for now. Despite his fogginess and cloudiness in his mentation, the patient is able to move all 4 extremities. He is able to say a few sentences however he speaks only short sentences. He is obviously hoarse related to prolonged intubation. Objective - Vital Signs Vital signs: Vital Signs Temp 98.6 F 02/15/18 12:00 Pulse 114 H 02/15/18 15:02 Resp 26 H 02/15/18 15:00 BP 120/65 02/15/18 15:00 Pulse Ox 97 02/15/18 15:00 Intake & Output 02/14/18 02/15/18 02/15/18 18:59 06:59 18:59 Intake Total 6411 626 6400 Output Total 2175 1110 2195 Balance -1156 -150 -855 Weight 92.2 kg Intake: IV 2523 103 1532 Dextrose 5%-0.45% NaCl 1, 200 240 160 000 ml @ 20 mls/hr IV . Q24H [facility] Rx#:[id number] Meropenem 1 gm In Sodium 200 100 100 Chloride 0.9% 100 ml @ 200 mls/hr IVPB Q8HR [facility] Rx#:[id number] NS 110 120 80 Pressure Bag 9 Vancomycin 1,750 mg In 500 1000 Sodium Chloride 0.9% 500 ml 500 ml @ 167 mls/hr IVPB Q12H [facility] Rx#: [id number] Intake, IV Titration 500 Amount Vancomycin 1,750 mg In 500 Sodium Chloride 0.9% 500 ml 500 ml @ 167 mls/hr IVPB Q12H [facility] Rx#: [id number] Output: Urine 2175 1110 2195 Other: Voiding Method Indwelling Catheter Indwelling Catheter Indwelling Catheter ABP, PAP, CO, CI - Last Documented Arterial Blood Pressure 100/64 Pulmonary Artery Pressure 36/26 Cardiac Output 6.4 Cardiac Index 2.9 - Exam The patient is awake and alert and sitting up on a chair. He is quite weak. Dobbhoff has been removed. Head exam was generally normal. There was no scleral icterus or corneal arcus. Mucous membranes were moist. Neck was supple and without jugular venous distension, thyromegaly, or carotid bruits. Carotids were easily palpable bilaterally. There was no adenopathy. Lungs sounds are diminished and there is improvement in the breast on the left lung base compared to yesterday's examination. No significant rhonchi or any wheezing on today's evaluation. Cardiac exam revealed the PMI to be normally situated and sized. The rhythm was regular and no extrasystoles were noted during several minutes of auscultation. The first and second heart sounds were normal and physiologic splitting of the second heart sound was noted. There were no murmurs, rubs, clicks, or gallops. The patient is in sinus tachycardia. Abdominal exam revealed normal bowel sounds. The abdomen was soft, non-tender, and without masses, organomegaly, or appreciable enlargement of the abdominal aorta. Examination of the extremities revealed easily palpable radial, femoral and pedal pulses. There was no cyanosis, clubbing or edema. Examination of the skin revealed no evidence of significant rashes, suspicious appearing nevi or other concerning lesions. Sternum stable clean and intact Neurologically the patient is awake and moving all 4 extremities with motor weakness in all 4 extremities approximately 3/5 severity. No Babinski. No clonus. Swallowing mechanism is been poor and the patient is still nothing by mouth for now and swallow evaluation will be done tomorrow. Pupils are equal and reactive to light. No seizure activity has been noted. Cough mechanism is also weak. - Labs CBC & Chem 7: 02/15/18 04:45 11/18/18 04:45 Labs: Abnormal Lab Results - Last 24 Hours (Table) 02/14/18 02/14/18 02/15/18 Range/Units 20:45 23:37 04:45 WBC (3.8-10.6) k/uL RBC (4.30-5.90) m/uL Hgb (13.0-17.5) gm/dL Hct (39.0-53.0) % Plt Count (150-450) k/uL Neutrophils # (Manual) (1.3-7.7) k/uL Lymphocytes # (Manual) (1.0-4.8) k/uL Monocytes # (Manual) (0-1.0) k/uL Metamyelocytes # (Man) (0) k/uL Myelocytes # (Manual) (0) k/uL Potassium 3.4 L (3.5-5.1) mmol/L Chloride 110 H (98-107) mmol/L BUN 31 H (9-20) mg/dL Creatinine 0.62 L (0.66-1.25) mg/dL Glucose 108 H (74-99) mg/dL POC Glucose (mg/dL) 103 H 102 H (75-99) mg/dL Ionized Calcium Maren 5.4 H (4.5-5.3) mg/dL ALT 96 H (21-72) U/L 02/15/18 02/15/18 02/15/18 Range/Units 04:45 05:39 12:37 WBC 30.2 H (3.8-10.6) k/uL RBC 3.81 L (4.30-5.90) m/uL Hgb 11.9 L (13.0-17.5) gm/dL Hct 35.9 L (39.0-53.0) % Plt Count 672 H (150-450) k/uL Neutrophils # (Manual) 22.00 H (1.3-7.7) k/uL Lymphocytes # (Manual) 6.64 H (1.0-4.8) k/uL Monocytes # (Manual) 1.81 H (0-1.0) k/uL Metamyelocytes # (Man) 0.30 H (0) k/uL Myelocytes # (Manual) 0.30 H (0) k/uL Potassium (3.5-5.1) mmol/L Chloride (98-107) mmol/L BUN (9-20) mg/dL Creatinine (0.66-1.25) mg/dL Glucose (74-99) mg/dL POC Glucose (mg/dL) 102 H 163 H (75-99) mg/dL Ionized Calcium Maren (4.5-5.3) mg/dL ALT (21-72) U/L Microbiology - Last 24 Hours (Table) 02/14/18 21:00 Gram Stain - Preliminary Sputum Sputum Culture - Preliminary 02/11/18 07:00 Blood Culture - Preliminary Blood No Growth after 96 hours 02/11/18 06:30 Blood Culture - Preliminary Blood No Growth after 96 hours 02/14/18 14:10 Urine Culture - Preliminary Urine,Catheterized Assessment and Plan Plan: Assessment 1 coronary artery bypass surgery and the patient is postop day #14, status post off-pump 2 vessel bypass surgery 2 postoperative ARDS, recovered 3 left lower lobe pneumonia, with secondary bacteremia, currently on a combination of Zosyn and vancomycin 4 low-grade fever, episodic, currently afebrile. 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 Aggressive physical therapy. Swallow evaluation in a.m. Recovery is slow yesterday. We'll continue to follow. Use Haldol for delirium.
[2018-02-15 17:49] LABS: Glucose,Whole Blood 115 mg/dL (75-99)
[2018-02-15] MEDS: SENNOSIDES-DOCUSATE SODIUM 1 EACH TAB PO SCH (21:57)
[2018-02-15] MEDS: INSULIN DETEMIR 100 UNIT/ML 10 ML VIAL SQ SCH (21:58)
--- NOTE | 2018-02-15 23:47 | P.PN ---
Subjective Progress Note Date: 02/14/18 Principal diagnosis: Non-ST elevated [place] status post coronary artery bypass graft. Mr. Castillo is a 42-year-old male with a past medical history of hypertension, hyperlipidemia, nicotine dependence, coronary artery disease with prior stenting performed in 2003 2004 in [place] coming into the hospital with a chief complaint of chest discomfort in the upper mid sternum. Patient describes it as severe tightness and heaviness and he was short of breath and diaphoretic. Patient pain was so severe that he was unable to speak at the time when he had the chest pain. In the ED patient had elevated troponins and started on IV heparin. Patient subsequently underwent cardiac cath which revealed a total occluded right coronary artery that appeared to be chronically occluded. There is also a complex lesion and in-stent restenosis of the proximal LAD. So he was recommended to get a coronary artery bypass graft that is scheduled for tomorrow morning. Patient has risk factors of smoking for the past 26 years almost 1 pack per day. 02/01/18 - patient is postop day 1. Patient is in the ICU currently on mechanical ventilation. He is sedated with propofol, Nimbex and fentanyl. Patient was hypoxemic on 100% FiO2 yesterday, which could be due to acute lung injury. So his ventilator settings have been adjusted by Dr. Gipson. He is still on Cardizem drip. On 02/02/2018 Patient is still on mechanical ventilator and sedated.. Currently on Cardizem drip. Also present on insulin drip. Dobbhoff tube was placed for nutrition. Chest x-ray showed left lower lobe atelectasis and infiltrate. Patient is with pleural chest tube. Mediastinal chest tube was removed. No fever noted. Pulmonary, CT surgery is following. 02/03/2018 Patient had postoperative hypoxemic respiratory failure due to suspected ARDS. Currently patient is on mechanical ventilator. Currently Cardizem drip is off. Feeding Dobbhoff tube. Currently patient is sedated. Review of systems could not be apparent from the patient Chest x-ray showed no acute cardiopulmonary process. 02/06/2018 Patient is currently intubated and sedated. Patient developed hypoxemic respiratory failure postoperatively likely due to ARDS. Patient has been afebrile. Otherwise still tachycardic. Metoprolol dose has been increased. Patient will be started on Lantus and insulin sliding scale. Will hold insulin drip Chest tube has been discontinued. Pulmonary and CT surgery is following. Urine culture is growing Klebsiella. 02/09/2018 remains paralyzed on Nimbex, sedated on diprovan. Remains vent dependent, FiO2 50%/+13 of PEEP. Hemoglobin 12.1. Chest x-ray reporting left lower lobe atelectasis versus pneumonia and associated effusion. Retrocardiac density. Underwent bronchoscopy yesterday, copious secretions, cultures currently reporting no microbial growth, suspected left lower lobe pneumonia. T -max 101.4. WBC 32.3. Sputum culture pending. Merrem initiated. Tolerating tube feeds with minimal to no residuals. 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 Currently maintained on mechanical ventilation with FiO2 decreased to 80%/+14 of PEEP . Chest x-ray reporting worsening left lower lobe consolidation .underwent bronchoscopy today, purulent mucous plugs suctioned from the left lower lobe. Maintained on IV antibiotics as per infectious disease. Nimbex off. T-max 101.3, WBC 34.4. Telemetry sinus rhythm. Potassium 5.9, redraw pending. 02/11/2018 remains vent dependent, FiO2 40%, PEEP decreased to +10. Chest x- ray reporting improvement of the left lower lobe. Preliminary bronch & blood cultures reporting gram-positive cocci. ABGs pending. Creamy cortes secretions suctioned from endotracheal tube. Telemetry sinus rhythm. WBC trending down, 30.7. T-max 101.4. Potassium down to 5.6. Remains off of Cleviprex. 02/12/2018 Patient is currently intubated. Weaning of sedation. FiO2 40% and PEEP of 10. Chest x-ray showed venous congestion without overt failure. Suspected mild left lower lobe atelectasis. Patient is being continued on meropenem and vancomycin. Patient has been afebrile. No other significant overnight changes. 02/13/2018 Patient was successfully extubated today. Currently on BiPAP machine. Patient is awake and able to follow verbal commands. No fever no chills. Patient will be continued on antibiotics and breathing treatments. Continue with oxygen therapy. Continue on nutrition with Dobbhoff tube. Chest x-ray showed stable mild cardiomegaly with worsening central vascular and new small bilateral pleural effusions, correlate for CHF exacerbation. Patient has been afebrile no other acute overnight issues.. 02/14/2018 Patient is currently lying in the bed comfortably. Mentation did improve compared to yesterday. Currently saturating well on nasal cannula. Patient has been afebrile. Chest x-ray showed improved aeration in both lungs. Patient is being continued on DuoNeb's and antibiotics in the form of vancomycin and meropenem. Decreased dose of Solu-Medrol. No nausea vomiting. Feels very weak otherwise. Current medications reviewed. Objective - Vital Signs Vital signs: Vital Signs Temp 98.6 F 02/14/18 16:00 Pulse 104 H 02/14/18 17:00 Resp 22 02/14/18 17:00 BP 150/97 02/14/18 17:00 Pulse Ox 96 02/14/18 17:00 Intake & Output 02/13/18 02/14/18 02/14/18 18:59 06:59 18:59 Intake Total 1460.429 929 859 Output Total 4975 2545 1925 Balance -3514.571 -1616 -1066 Weight 100.6 kg 93.6 kg Intake: IV 503 929 859 Dextrose 5%-0.45% NaCl 1, 160 260 160 000 ml @ 20 mls/hr IV . Q24H [facility] Rx#:[id number] Meropenem 1 gm In Sodium 200 100 Chloride 0.9% 100 ml @ 200 mls/hr IVPB Q8HR [facility] Rx#:[id number] NS 110 130 90 Pressure Bag 33 39 9 Vancomycin 1,750 mg In 500 500 Sodium Chloride 0.9% 500 ml 500 ml @ 167 mls/hr IVPB Q12H [facility] Rx#: [id number] Intake, IV Titration 563.429 Amount Dexmedetomidine/0.9% NaCl 5.944 (Pmx) 400 mcg In Empty Bag 1 bag @ Titrate IV . Q0M [facility] Rx#:[id number] Propofol 1,000 mg In 56.485 Empty Bag 1 bag @ Titrate IV .Q0M [facility] Rx#: [id number] Vancomycin 1,750 mg In 501 Sodium Chloride 0.9% 500 ml 500 ml @ 167 mls/hr IVPB Q12H [facility] Rx#: [id number] Tube Feeding 279 Other 115 Output: Urine 4975 2545 1925 Other: Voiding Method Indwelling Catheter Indwelling Catheter Indwelling Catheter ABP, PAP, CO, CI - Last Documented Arterial Blood Pressure 100/64 Pulmonary Artery Pressure 36/26 Cardiac Output 6.4 Cardiac Index 2.9 - Exam GENERAL: Patient is awake alert and oriented. No acute distress.. HEENT: Extraocular muscles intact. No pallor no icterus. CARDIOVASCULAR: S1 and S2 present. No murmurs, rubs, or gallops. PULMONARY: Diminished breath sounds at the lower lung bases. No crackles or wheezes. ABDOMEN: Soft, nontender, nondistended, normoactive bowel sounds. No palpable organomegaly. EXTREMITIES: No rash. Pulses palpable laterally 2+. No edema. NEUROLOGICAL: Awake alert and oriented 3. Hoarse voice and weak. Able to move all his extremities. SKIN: No rashes. No lesions Psychiatric. Cooperative. Could not assessed completely. - Labs CBC & Chem 7: 02/15/18 04:45 02/15/18 18:11 Labs: Abnormal Lab Results - Last 24 Hours (Table) 02/13/18 02/14/18 02/14/18 Range/Units 19:53 00:02 02:35 WBC (3.8-10.6) k/uL RBC (4.30-5.90) m/uL Hgb (13.0-17.5) gm/dL Hct (39.0-53.0) % Plt Count (150-450) k/uL Neutrophils # (1.3-7.7) k/uL Monocytes # (0-1.0) k/uL BUN 34 H (9-20) mg/dL POC Glucose (mg/dL) 118 H 103 H (75-99) mg/dL Ionized Calcium Maren 5.5 H (4.5-5.3) mg/dL ALT 115 H (21-72) U/L Albumin 3.4 L (3.5-5.0) g/dL 02/14/18 02/14/18 02/14/18 Range/Units 02:35 04:06 11:45 WBC 41.2 H (3.8-10.6) k/uL RBC 3.90 L (4.30-5.90) m/uL Hgb 11.9 L (13.0-17.5) gm/dL Hct 36.6 L (39.0-53.0) % Plt Count 577 H (150-450) k/uL Neutrophils # 34.1 H (1.3-7.7) k/uL Monocytes # 2.9 H (0-1.0) k/uL BUN (9-20) mg/dL POC Glucose (mg/dL) 111 H 116 H (75-99) mg/dL Ionized Calcium Maren (4.5-5.3) mg/dL ALT (21-72) U/L Albumin (3.5-5.0) g/dL Microbiology - Last 24 Hours (Table) 02/11/18 07:00 Blood Culture - Preliminary Blood No Growth after 72 hours 02/11/18 06:30 Blood Culture - Preliminary Blood No Growth after 72 hours Assessment and Plan Assessment: Status post two-vessel coronary artery bypass grafting - postop day 14 Postoperative Acute hypoxic respiratory failure- likely due to ARDS. Extubated on 02/13/2018 Left lower lobe pneumonia Acute coronary syndrome/non-ST elevated [place] Current smoker with a 26 pack years History of left lower lobe atelectasis/collapse post bronchoscopy and removal of mucous plugs Hypertension Obesity Generalized anxiety Chronic leukocytosis DVT prophylaxis Plan: Patient will be continued on oxygen therapy. Continue with antibiotics in the form of meropenem and vancomycin. Continue with breathing treatments and IV steroids. Patient is also on amiodarone drip. Continue with aspirin statins and metoprolol. Pulmonary and CT surgery is following. Further recommendations based on the clinical course. Time with Patient: Greater than 30
--- NOTE | 2018-02-15 23:51 | P.PN ---
Subjective Progress Note Date: 02/15/18 Principal diagnosis: Non-ST elevated [place] status post coronary artery bypass graft. Mr. Castillo is a 42-year-old male with a past medical history of hypertension, hyperlipidemia, nicotine dependence, coronary artery disease with prior stenting performed in 2003 2004 in [place] coming into the hospital with a chief complaint of chest discomfort in the upper mid sternum. Patient describes it as severe tightness and heaviness and he was short of breath and diaphoretic. Patient pain was so severe that he was unable to speak at the time when he had the chest pain. In the ED patient had elevated troponins and started on IV heparin. Patient subsequently underwent cardiac cath which revealed a total occluded right coronary artery that appeared to be chronically occluded. There is also a complex lesion and in-stent restenosis of the proximal LAD. So he was recommended to get a coronary artery bypass graft that is scheduled for tomorrow morning. Patient has risk factors of smoking for the past 26 years almost 1 pack per day. 02/01/18 - patient is postop day 1. Patient is in the ICU currently on mechanical ventilation. He is sedated with propofol, Nimbex and fentanyl. Patient was hypoxemic on 100% FiO2 yesterday, which could be due to acute lung injury. So his ventilator settings have been adjusted by Dr. Gipson. He is still on Cardizem drip. On 02/02/2018 Patient is still on mechanical ventilator and sedated.. Currently on Cardizem drip. Also present on insulin drip. Dobbhoff tube was placed for nutrition. Chest x-ray showed left lower lobe atelectasis and infiltrate. Patient is with pleural chest tube. Mediastinal chest tube was removed. No fever noted. Pulmonary, CT surgery is following. 02/03/2018 Patient had postoperative hypoxemic respiratory failure due to suspected ARDS. Currently patient is on mechanical ventilator. Currently Cardizem drip is off. Feeding Dobbhoff tube. Currently patient is sedated. Review of systems could not be apparent from the patient Chest x-ray showed no acute cardiopulmonary process. 02/06/2018 Patient is currently intubated and sedated. Patient developed hypoxemic respiratory failure postoperatively likely due to ARDS. Patient has been afebrile. Otherwise still tachycardic. Metoprolol dose has been increased. Patient will be started on Lantus and insulin sliding scale. Will hold insulin drip Chest tube has been discontinued. Pulmonary and CT surgery is following. Urine culture is growing Klebsiella. 02/09/2018 remains paralyzed on Nimbex, sedated on diprovan. Remains vent dependent, FiO2 50%/+13 of PEEP. Hemoglobin 12.1. Chest x-ray reporting left lower lobe atelectasis versus pneumonia and associated effusion. Retrocardiac density. Underwent bronchoscopy yesterday, copious secretions, cultures currently reporting no microbial growth, suspected left lower lobe pneumonia. T -max 101.4. WBC 32.3. Sputum culture pending. Merrem initiated. Tolerating tube feeds with minimal to no residuals. 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 Currently maintained on mechanical ventilation with FiO2 decreased to 80%/+14 of PEEP . Chest x-ray reporting worsening left lower lobe consolidation .underwent bronchoscopy today, purulent mucous plugs suctioned from the left lower lobe. Maintained on IV antibiotics as per infectious disease. Nimbex off. T-max 101.3, WBC 34.4. Telemetry sinus rhythm. Potassium 5.9, redraw pending. 02/11/2018 remains vent dependent, FiO2 40%, PEEP decreased to +10. Chest x- ray reporting improvement of the left lower lobe. Preliminary bronch & blood cultures reporting gram-positive cocci. ABGs pending. Creamy cortes secretions suctioned from endotracheal tube. Telemetry sinus rhythm. WBC trending down, 30.7. T-max 101.4. Potassium down to 5.6. Remains off of Cleviprex. 02/12/2018 Patient is currently intubated. Weaning of sedation. FiO2 40% and PEEP of 10. Chest x-ray showed venous congestion without overt failure. Suspected mild left lower lobe atelectasis. Patient is being continued on meropenem and vancomycin. Patient has been afebrile. No other significant overnight changes. 02/13/2018 Patient was successfully extubated today. Currently on BiPAP machine. Patient is awake and able to follow verbal commands. No fever no chills. Patient will be continued on antibiotics and breathing treatments. Continue with oxygen therapy. Continue on nutrition with Dobbhoff tube. Chest x-ray showed stable mild cardiomegaly with worsening central vascular and new small bilateral pleural effusions, correlate for CHF exacerbation. Patient has been afebrile no other acute overnight issues.. 02/14/2018 Patient is currently lying in the bed comfortably. Mentation did improve compared to yesterday. Currently saturating well on nasal cannula. Patient has been afebrile. Chest x-ray showed improved aeration in both lungs. Patient is being continued on DuoNeb's and antibiotics in the form of vancomycin and meropenem. Decreased dose of Solu-Medrol. No nausea vomiting. Feels very weak otherwise. 02/15/2018 Patient is currently sitting a chair comfortable. Saturating well on room air. Otherwise no complaints of chest pain or shortness of breath. No fever no chills. Chest x-ray showed continued bibasilar airspace disease. Bilateral pleural effusion. Patient is being continued on antibiotics and IV steroids. Along with breathing treatments. Patient does have some hoarse voice but able to communicate slowly. Pulmonary, ID and CT surgery is following. Current medications reviewed. Objective - Vital Signs Vital signs: Vital Signs Temp 98.7 F 02/15/18 16:00 Pulse 114 H 02/15/18 16:00 Resp 26 H 02/15/18 16:00 BP 120/77 02/15/18 16:00 Pulse Ox 93 L 02/15/18 16:00 Intake & Output 02/14/18 02/15/18 02/15/18 18:59 06:59 18:59 Intake Total 6991 143 0944 Output Total 2175 1110 2320 Balance -1156 -150 -920 Weight 92.2 kg Intake: IV 9254 705 3772 Dextrose 5%-0.45% NaCl 1, 200 240 200 000 ml @ 20 mls/hr IV . Q24H [facility] Rx#:[id number] Meropenem 1 gm In Sodium 200 100 100 Chloride 0.9% 100 ml @ 200 mls/hr IVPB Q8HR [facility] Rx#:[id number] NS 110 120 100 Pressure Bag 9 Vancomycin 1,750 mg In 500 1000 Sodium Chloride 0.9% 500 ml 500 ml @ 167 mls/hr IVPB Q12H [facility] Rx#: [id number] Intake, IV Titration 500 Amount Vancomycin 1,750 mg In 500 Sodium Chloride 0.9% 500 ml 500 ml @ 167 mls/hr IVPB Q12H [facility] Rx#: [id number] Output: Urine 2175 1110 2320 Other: Voiding Method Indwelling Catheter Indwelling Catheter Indwelling Catheter ABP, PAP, CO, CI - Last Documented Arterial Blood Pressure 100/64 Pulmonary Artery Pressure 36/26 Cardiac Output 6.4 Cardiac Index 2.9 - Exam GENERAL: Patient is awake alert and oriented. No acute distress.. HEENT: Extraocular muscles intact. No pallor no icterus. CARDIOVASCULAR: S1 and S2 present. No murmurs, rubs, or gallops. PULMONARY: Diminished breath sounds at the lower lung bases. No crackles or wheezes. ABDOMEN: Soft, nontender, nondistended, normoactive bowel sounds. No palpable organomegaly. EXTREMITIES: No rash. Pulses palpable laterally 2+. No edema. NEUROLOGICAL: Awake alert and oriented 3. Hoarse voice and weak. Able to move all his extremities. SKIN: No rashes. No lesions Psychiatric. Cooperative. Could not assessed completely. - Labs CBC & Chem 7: 02/15/18 04:45 02/15/18 18:11 Labs: Abnormal Lab Results - Last 24 Hours (Table) 02/14/18 02/14/18 02/15/18 Range/Units 20:45 23:37 04:45 WBC (3.8-10.6) k/uL RBC (4.30-5.90) m/uL Hgb (13.0-17.5) gm/dL Hct (39.0-53.0) % Plt Count (150-450) k/uL Neutrophils # (Manual) (1.3-7.7) k/uL Lymphocytes # (Manual) (1.0-4.8) k/uL Monocytes # (Manual) (0-1.0) k/uL Metamyelocytes # (Man) (0) k/uL Myelocytes # (Manual) (0) k/uL Potassium 3.4 L (3.5-5.1) mmol/L Chloride 110 H (98-107) mmol/L BUN 31 H (9-20) mg/dL Creatinine 0.62 L (0.66-1.25) mg/dL Glucose 108 H (74-99) mg/dL POC Glucose (mg/dL) 103 H 102 H (75-99) mg/dL Ionized Calcium Maren 5.4 H (4.5-5.3) mg/dL ALT 96 H (21-72) U/L 02/15/18 02/15/18 02/15/18 Range/Units 04:45 05:39 12:37 WBC 30.2 H (3.8-10.6) k/uL RBC 3.81 L (4.30-5.90) m/uL Hgb 11.9 L (13.0-17.5) gm/dL Hct 35.9 L (39.0-53.0) % Plt Count 672 H (150-450) k/uL Neutrophils # (Manual) 22.00 H (1.3-7.7) k/uL Lymphocytes # (Manual) 6.64 H (1.0-4.8) k/uL Monocytes # (Manual) 1.81 H (0-1.0) k/uL Metamyelocytes # (Man) 0.30 H (0) k/uL Myelocytes # (Manual) 0.30 H (0) k/uL Potassium (3.5-5.1) mmol/L Chloride (98-107) mmol/L BUN (9-20) mg/dL Creatinine (0.66-1.25) mg/dL Glucose (74-99) mg/dL POC Glucose (mg/dL) 102 H 163 H (75-99) mg/dL Ionized Calcium Maren (4.5-5.3) mg/dL ALT (21-72) U/L Microbiology - Last 24 Hours (Table) 02/14/18 21:00 Gram Stain - Preliminary Sputum Sputum Culture - Preliminary 02/11/18 07:00 Blood Culture - Preliminary Blood No Growth after 96 hours 02/11/18 06:30 Blood Culture - Preliminary Blood No Growth after 96 hours 02/14/18 14:10 Urine Culture - Preliminary Urine,Catheterized Assessment and Plan Assessment: Status post two-vessel coronary artery bypass grafting - postop day 15 Postoperative Acute hypoxic respiratory failure- likely due to ARDS. Extubated on 02/13/2018 Left lower lobe pneumonia Acute coronary syndrome/non-ST elevated [place] Current smoker with a 26 pack years History of left lower lobe atelectasis/collapse post bronchoscopy and removal of mucous plugs Hypertension Obesity Generalized anxiety Chronic leukocytosis DVT prophylaxis Plan: Patient will be continued on oxygen therapy. Continue with antibiotics in the form of meropenem and vancomycin. Continue with breathing treatments and IV steroids. Patient is also on amiodarone drip. Continue with aspirin statins and metoprolol. Pulmonary and CT surgery is following. Currently patient is nothing by mouth. Oral feeds may be started tomorrow. Further recommendations based on the clinical course. Time with Patient: Greater than 30
[2018-02-16] MEDS: INSULIN ASPART 100 UNIT/ML 1 ML 10 ML VIAL SQ SCH ×4 (01:00→18:52)
[2018-02-16 01:23] LABS: Glucose,Whole Blood 123 mg/dL (75-99)
[2018-02-16] MEDS: HEPARIN SODIUM,PORCINE 5,000 UNIT/ML 1 ML VIAL SQ SCH ×3 (01:30→15:59)
[2018-02-16] MEDS: MEROPENEM 1 GM in SODIUM CHLORIDE 0.9% 100 ML IVPB SCH ×3 (01:30→15:59)
[2018-02-16] MEDS: IPRATROPIUM-ALBUTEROL 3 ML NEB INHALATION SCH ×6 (03:17→23:31)
[2018-02-16 06:08] LABS: ALT 82 U/L (21-72); AST 28 U/L (17-59); Albumin 3.4 g/dL (3.5-5.0); Alkaline Phosphatase 53 U/L (38-126); Anion Gap 9 mmol/L; Blood Urea Nitrogen 34 mg/dL (9-20); Calcium 9.7 mg/dL (8.4-10.2); Carbon Dioxide 24 mmol/L (22-30); Chloride 112 mmol/L (98-107); Glucose 133 mg/dL (74-99); Potassium 4.5 mmol/L (3.5-5.1); Sodium 145 mmol/L (137-145); Total Bilirubin 1.2 mg/dL (0.2-1.3); Total Protein 6.7 g/dL (6.3-8.2)
[2018-02-16 06:28] LABS: Glucose,Whole Blood 133 mg/dL (75-99)
--- NOTE | 2018-02-16 07:24 | XR ---
EXAMINATION TYPE: XR chest 1V portable DATE OF EXAM: 02/16/2018 Comparison: 02/15/2018 Clinical History: 42-year-old male Post op CABG Findings: Median sternotomy wires are present with post-CABG clips in the mediastinum. Left PICC tip at the mid SVC level. Heart upper limits of normal in size. On diffuse interstitial changes and peribronchial c uffing remains with some patchy left mid and lower lung opacity. Some improved aeration at the right lung base. No appreciable pneumothorax. Impression: Similar residual pulmonary vascular congestion/interstitial edema. Some improved aeration at the lung bases with some residual patchy atelectasis at the left base.
[2018-02-16 08:04] LABS: Basophils # (A) 0.1 k/uL (0-0.2); Basophils % (A) 0 %; Eosinophils # (A) 0.3 k/uL (0-0.7); Eosinophils % (A) 1 %; HCT 37.5 % (39.0-53.0); Lymphocytes # (A) 4.9 k/uL (1.0-4.8); Lymphocytes % (A) 20 %; MCH 30.9 pg (25.0-35.0); MCV 96.6 fL (80.0-100.0); Monocytes # (A) 1.8 k/uL (0-1.0); Monocytes % (A) 8 %; Neutrophils # (A) 16.8 k/uL (1.3-7.7); Neutrophils % (A) 69 %; Platelet Count 727 k/uL (150-450); RBC 3.88 m/uL (4.30-5.90); RDW 14.2 % (11.5-15.5); WBC 24.2 k/uL (3.8-10.6)
[2018-02-16] MEDS: BUDESONIDE 1 MG/2 ML NEBU INHALATION SCH ×2 (08:11→19:15)
[2018-02-16] MEDS: FORMOTEROL FUMARATE 20 MCG/2 ML NEBU INHALATION SCH ×2 (08:11→19:15)
[2018-02-16] MEDS: CLOPIDOGREL 75 MG TAB PO SCH (08:41)
[2018-02-16] MEDS: METOPROLOL TARTRATE 50 MG TAB PO SCH ×2 (08:41→20:17)
[2018-02-16] MEDS: ATORVASTATIN 40 MG TAB PO SCH (08:41)
[2018-02-16] MEDS: PANTOPRAZOLE 40 MG TABLET PO SCH (08:41)
[2018-02-16] MEDS: ASPIRIN 325 MG TAB PO SCH (08:41)
[2018-02-16] MEDS: amLODIPine 5 MG TAB PO SCH ×2 (08:41→20:17)
[2018-02-16] MEDS: methylPREDNISolone SOD SUCCI 40 MG/ML 1 ML VIAL IV SCH (08:47)
[2018-02-16] MEDS: CHLORHEXIDINE GLUCONATE 15 ML CUP MUCOUS MEM SCH ×2 (08:47→20:17)
[2018-02-16] MEDS: VANCOMYCIN 1,750 MG in SODIUM CHLORIDE 0.9% 500 ML 500 ML IVPB SCH ×2 (10:24→22:20)
[2018-02-16 12:23] LABS: Glucose,Whole Blood 127 mg/dL (75-99)
--- NOTE | 2018-02-16 14:14 | P.PN ---
Subjective Progress Note Date: 02/16/18 Principal diagnosis: Status post CABG, postoperative day #16, status post off-pump 2 vessel bypass surgery This 42-year-old male patient is postop day #9 following his 2 vessel bypass surgery, off pump. Postop, the patient has been still intubated on mechanical ventilator due to complications of ARDS. On today's evaluation, I find this patient sedated with Diprivan and currently is on 50 mics of Diprivan for sedation. He is also paralyzed with Nimbex. He is calm and comfortable and synchronous with the mechanical ventilator. Earlier this morning he was an assist-control mode of ventilation with a tidal volume of 450, FiO2 of 50% with a PEEP of 13 and a respiratory rate of 34. He was on a I:E ratio of 1.2-1 and his inspiratory time was at 1.0 seconds. He had a blood gases earlier this morning that showed a pH of 7.42 with a pCO2 of 39 and pO2 of 77 and this was done earlier this morning and FiO2 of 50%. His chest x-ray showed a left lower lobe consolidation and ET tube was in a good location with diffuse groundglass changes throughout the lung hahn bilaterally consistent with ARDS. On examination, he had bilateral rhonchi and some limited expiratory wheeze. He underwent a bronchoscopy yesterday and the bronchioloalveolar lavage from left lower lobe is still pending for now and there is no microbial growth. However, there was copious amount of rest or secretions based on the operative report and the patient is running a low-grade fever with a T-max of 11.4. Based on all this, I left lower lobe pneumonia was suspected and I started this patient on IV meropenem. IV Zosyn on consult. Despite all this, he is hemodynamically stable. He is in a sinus rhythm. Sternum is stable clean and intact. No chest tubes are in place and all of the chest tubes have been removed. The neck fluid balance is 375 mL negative over the past 24 hours. He is on no pressors. He is tolerating his tube feedings which is in the form of vital at 30 mL an hour. Is producing adequate urine output. No other significant events overnight. His white cell count has been persistently elevated and remains elevated at 32.3. Hemoglobin stable at 12.1. On today's evaluation of 02/10/2018, the patient is postop day #10. The patient remains intubated on a mechanical ventilator. The patient is sedated and paralyzed. We are still having difficulties with oxygenation nontender the patient had developed post surgical ARDS and subsequently there is an indication of a left lower lobe pneumonia. The patient had a follow-up chest x- ray today that showed worsening in the consolidation of the left lower lobe. Earlier this morning, he was assist-control mode of ventilation at a PEEP of 14 , FiO2 of 80%, respiratory rate of 26 and tidal volume of 450. The morning. The peak air pressures around 33. His blood gases from today showed a pH of 7.31 with a pCO2 of 55 and pO2 of 86. Chest x-ray shows a dense consolidation and some volume loss in the left lower lobe. Based on this, I performed a bronchoscopy on this patient. Copious amount of purulent respiratory secretions was suctioned out from the left lower lobe and the amount was estimated to be around 30 mL of purulent material. I also performed segmental bronchial washings of the left lower lobe. The cultures will be sent. I started covering this patient with IV antibiotics and I put him on IV Merrem. This morning, he is afebrile however overnight he was spiking temperature of 100.0 with a T-max of 101.3. His white cell count is up to 34,000. Platelet counts are within normal limits. Hemodynamically stable on no pressors. Tolerating tube feeds. As mentioned, all of the chest tubes have been removed. On 02/11/2018 the patient is postop day #11. I performed a bronchoscopy on this patient yesterday and copious amount of purulent respiratory secretions were suctioned out from the patient's left lower lobe. Limited cultures indicating gram-positive cocci. There is also gram-positive cocci in the blood. We suspected the patient had a left lower lobe pneumonia with secondary septicemia. The patient is currently on Merrem and dose of vancomycin was given overnight. Overall oxidation improved following the bronchoscopy. This morning, the patient is on a tidal volume of 450, rate of 26, FiO2 of 40% to 14. Peak airway pressures around 31 with metastatic impression from 20. Blood gases from this morning showed a pH of 7.4 with a pCO2 of 42 and pO2 of 11. Chest x-ray shows improvement in the expression of the left lower lobe. Based on all this, I dropped down the PEEP to 12. Hemodynamically stable. He is in a normal sinus rhythm. Is producing adequate amount of urine output. White cell count remains elevated at 50.7 although somewhat improved compared to yesterday. Renal function is stable. The patient is currently afebrile. He is tolerating his tube feeds. Having regular bowel movements. His last temperature spike of 11.4 was from yesterday evening. No other significant events overnight. He is quite sedated on Diprivan at 50 mics. He was given a sedation holiday yesterday and he arouse and he was slightly agitated but cannot orotracheal tube and based on that he was placed back on sedation. On 02/12/2018 patient is postop day #12. The patient is doing well. The patient is sedated with Diprivan this morning however I'm in the process of taking him off the sedation and switching him to Precedex for sedation. The patient is still on mechanical ventilator. This morning's an assist-control at the rate of 26 right-sided volume of 450 and an FiO2 of 40% and a PEEP of 10. I the peak and static air pressures were not elevated and there were steadily declining. The patient's blood gas from this morning showed a pH of 7.43 with a pCO2 of 37 and pO2 of 98. Based on that, I dropped the PEEP down to 8 and then down to 5 cm of water and the patient was able to tolerate drop in the PEEP that was done over 6 hours and the saturation remains above 90%. I am at this point weaning the patient off the Diprivan and using Precedex for sedation. The patient is gradually arousing. Around half an hour ago, is opening his eyes and is following simple commands. Chest x-ray from today shows adequate expansion of both lungs and some limited infiltration seen in the left lung base. No new cultures and the previous coronary strep infection. The patient remains on a combination of IV Merrem and vancomycin. He is afebrile. On IV Solu-Medrol. He is tolerating his tube feeds via [place]. White cell count is gradually improving is down to 25. Hemoglobin stable at 9.4. Renal function is stable. No other significant events overnight. The neck fluid balance is +250 mL over the past 24 hours. On 02/13/2018 the patient is postop day #13. There has been steady improvement in his overall vascular status. Yesterday without too point with dropped the patient's PEEP down to 5 and FiO2 was kept at 40% with a tidal volume of 450 and the respiratory rate of 22. The patient was able to tolerate his vent setting without any major difficulties. He was given a sedation holiday and he got to the point where he was wide awake and comfortable and following commands and answering questions. Nevertheless he was profoundly weak and had a weak cough. I was not comfortable and extubating this patient even though his weaning parameters were good. However, his blood gases while being on a pressure support of 5 and a PEEP of 5 showed a component of respiratory alkalosis with a pH of 7.52 and a pCO2 of 30 and pO2 of 60 and the patient was becoming more tachypneic. Based on this, he was kept on sedation overnight and we're the process of repeating the weaning trial again this morning. On today' s chest x-ray, the patient has developed some limited bilateral lower lobe pulmonary infiltrates/atelectasis. Nevertheless, he does not have any significant respiratory secretions. He is on a combination of Merrem and vancomycin. The patient is hemodynamically stable. The patient is afebrile. White cell count is at 29.8. Morning blood gases showed a pH of 7.44 with a pCO2 of 35 and pO2 of 89. He is tolerating his enteral feeding for nutritional support. Developed a bowel movements. Surgical wound sites are dry clean and intact chest tubes have been removed. Hemoglobin stable. No other significant events overnight. I'm in the process of weaning the prevent and keeping the patient on low-dose Precedex. We will recheck his weaning parameters and assess his readiness to wean. Patient seen today 02/14/2018 in follow-up in the intensive care unit. This is postoperative day #14. He is currently resting comfortably in bed. He is awake and alert in no acute distress. He has some ongoing hoarseness. He is currently maintaining O2 saturations in the 90s on 5 L/m per nasal cannula. He' s been afebrile. He is currently in sinus rhythm. His chest x-ray showing improved aeration in both lungs. Follow-up blood cultures reveal no growth after 72 hours. White count 41.2. Hemoglobin 11.9. Creatinine 0.71. He remains on DuoNeb inhalations, Pulmicort and Perforomist inhalations. He is currently on vancomycin and meropenem. We decreased his IV Solu-Medrol. He was given additional Lasix this morning. Remains in a negative balance. On 02/15/2018 I'm seeing this patient in intensive care unit for a follow-up. The patient is postop day #15. The patient is currently on room air. Sternum stable clean and intact. Overnight he had some delirium and for that reason he was given IV Haldol. Currently he is more oriented however on and off I feel it is still foggy. There is obvious motor weakness in all 4 extremities and he is gradually improving. Unable to move him up on a chair today. No fever. No chills. Chest x-ray still showing pulmonary vessel congestion and patient will be given another dose of Lasix and the patient has been negative fluid balance over the past 24-48 hours. The patient is also on IV Solu-Medrol 40 mg every 24 hours this was tapered today. He is receiving Levemir insulin 10 units daily at bedtime. The patient is also on a combination of vancomycin and meropenem. Repeat cultures were sent. Infectious diseases managing the patient 's antibiotic coverage. Overall his antibiotic coverage can be simplified for now. Despite his fogginess and cloudiness in his mentation, the patient is able to move all 4 extremities. He is able to say a few sentences however he speaks only short sentences. He is obviously hoarse related to prolonged intubation. On 02/16/2018, patient remains in the intensive care unit, his postoperative day #16. Currently on room air, seems to be comfortable, in no form of respiratory distress, however he feels generally weak, and barely able to move his upper extremities against gravity. Patient remains on multiple medications including diuretics, antibiotics with vancomycin and Merrem, patient continues to have an infiltrate involving the left lower lobe. No active pulmonary symptoms at present. He denies any shortness of breath or chest pain. Continues to have leukocytosis with WBC count of 24.2 hemoglobin is 12 electrolytes and renal profile are normal. Chest x-ray this morning showed slight interstitial changes bilaterally, possibly interstitial edema, and there is significant improvement of aeration of lung bases especially at the left lung base. Objective - Vital Signs Vital signs: Vital Signs Temp 98.1 F 02/16/18 12:00 Pulse 88 02/16/18 12:06 Resp 26 H 02/16/18 12:00 BP 113/84 02/16/18 12:00 Pulse Ox 97 02/16/18 12:00 Intake & Output 02/15/18 02/16/18 02/16/18 18:59 06:59 18:59 Intake Total 1460 1060 780 Output Total 2435 870 450 Balance -975 190 330 Weight 94 kg 94 kg Intake: IV 1460 460 780 Dextrose 5%-0.45% NaCl 1, 240 240 120 000 ml @ 20 mls/hr IV . Q24H [facility]ICH[facility] Rx#:[id number] Meropenem 1 gm In Sodium 100 100 100 Chloride 0.9% 100 ml @ 200 mls/hr IVPB Q8HR [facility]ICH[facility] Rx#:[id number] NS 120 120 60 Vancomycin 1,750 mg In 1000 500 Sodium Chloride 0.9% 500 ml 500 ml @ 167 mls/hr IVPB Q12H [facility]ICH[facility] Rx#: [id number] Intake, IV Titration 600 Amount Meropenem 1 gm In Sodium 100 Chloride 0.9% 100 ml @ 200 mls/hr IVPB Q8HR [facility]ICH[facility] Rx#:[id number] Vancomycin 1,750 mg In 500 Sodium Chloride 0.9% 500 ml 500 ml @ 167 mls/hr IVPB Q12H [facility]ICH[facility] Rx#: [id number] Output: Urine 2435 870 450 Other: Voiding Method Indwelling Catheter Indwelling Catheter Indwelling Catheter ABP, PAP, CO, CI - Last Documented Arterial Blood Pressure 100/64 Pulmonary Artery Pressure 36/26 Cardiac Output 6.4 Cardiac Index 2.9 - Exam Physical Exam: Revealed a 42-year-old white male in no distress. On room air. Head: Atraumatic, normocephalic. HEENT:[Neck is supple.] [No neck masses.] [No thyromegaly.] [No JVD.] PERRLA, EOMI, no icterus. Chest: [Clear throughout, no crackles, no rhonchi, no wheezes.] Slightly diminished breath sounds at the left base, symmetrical chest wall expansion noted. Cardiac Exam: [Normal S1 and S2, no S3 gallop, no murmur.] Abdomen: [Soft, nontender, no megaly, no rebound, no guarding, normal bowel sounds.] Extremities: [No clubbing, no edema, no cyanosis.] Neurological Exam: [No focal neurologic deficit.] However the patient is noted to be generally weak, all 4 extremities are noted to be 3/5 in strength. Psychiatric: Normal mood, affect and mental status examination. Skin: No rashes. - Labs CBC & Chem 7: 02/16/18 05:35 02/16/18 05:35 Labs: Abnormal Lab Results - Last 24 Hours (Table) 02/15/18 02/16/18 02/16/18 Range/Units 17:21 01:20 05:35 WBC (3.8-10.6) k/uL RBC (4.30-5.90) m/uL Hgb (13.0-17.5) gm/dL Hct (39.0-53.0) % Plt Count (150-450) k/uL Neutrophils # (1.3-7.7) k/uL Lymphocytes # (1.0-4.8) k/uL Monocytes # (0-1.0) k/uL Chloride 112 H (98-107) mmol/L BUN 34 H (9-20) mg/dL Creatinine 0.65 L (0.66-1.25) mg/dL Glucose 133 H (74-99) mg/dL POC Glucose (mg/dL) 115 H 123 H (75-99) mg/dL ALT 82 H (21-72) U/L Albumin 3.4 L (3.5-5.0) g/dL 02/16/18 02/16/18 02/16/18 Range/Units 05:35 05:51 12:17 WBC 24.2 H (3.8-10.6) k/uL RBC 3.88 L (4.30-5.90) m/uL Hgb 12.0 L (13.0-17.5) gm/dL Hct 37.5 L (39.0-53.0) % Plt Count 727 H (150-450) k/uL Neutrophils # 16.8 H (1.3-7.7) k/uL Lymphocytes # 4.9 H (1.0-4.8) k/uL Monocytes # 1.8 H (0-1.0) k/uL Chloride (98-107) mmol/L BUN (9-20) mg/dL Creatinine (0.66-1.25) mg/dL Glucose (74-99) mg/dL POC Glucose (mg/dL) 133 H 127 H (75-99) mg/dL ALT (21-72) U/L Albumin (3.5-5.0) g/dL Microbiology - Last 24 Hours (Table) 02/11/18 07:00 Blood Culture - Preliminary Blood No Growth after 120 hours 02/11/18 06:30 Blood Culture - Preliminary Blood No Growth after 120 hours 02/14/18 19:25 Blood Culture - Preliminary Blood No Growth after 24 hours 02/14/18 14:10 Urine Culture - Final Urine,Catheterized 02/14/18 21:00 Gram Stain - Preliminary Sputum Sputum Culture - Preliminary Assessment and Plan Assessment: Impression: 1 status post CABG postoperative day #16. 2 postoperative respiratory failure/hypoxic in nature secondary to ARDS. 3 acute ventilator associated left lower lobe pneumonia, remains on Zosyn and vancomycin. 4 acute critical illness polyneuropathy and polymyopathy. 5 intermittent episodes of delirium and metabolic encephalopathy improving. 6 previous history of splenectomy, and underlying COPD. Recommendation: Continue present supportive care measures, patient will eventually require transfer to a rehab facility to be able to recover from his critical illness polymyopathy. We'll continue to follow. Patient remains in the ICU today. Time with Patient: Less than 30
--- NOTE | 2018-02-16 16:47 | FL ---
MODIFIED SWALLOW / DEGLUTITION STUDY DATE OF EXAM: 02/16/2018 CLINICAL HISTORY: 42-year-old male Dysphagia. Status post CABG with coughing at the bedside. Total fluoroscopy time: 2 minutes 53 seconds. Total images: None. Real-time fluoroscopy support was provided to speech pathology. TECHNIQUE: Deglutition study is performed utilizing thin liquid barium, honey and nectar thick liqui d barium, barium thick applesauce, and barium coated cracker. COMPARISON: None. FINDINGS: Swallow initiation was mildly delayed. There is deep penetration with thin liquids. The cough reflex is elicited so mild aspiration may have occurred. There is inconsistent moderate transient penetrati on with nectar liquid. Additional transient penetration with crushed solids. No other penetration or aspiration seen. IMPRESSION: 1. Delayed swallow. 2. Deep penetration with thin liquids with possible mild aspiration given activation of the cough ref tish. Transient penetration with both nectar liquids and crushed solids. No other aspiration seen. 3. Please refer to speech therapist notes for further details if necessary.
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
[2018-02-16 18:30] LABS: Glucose,Whole Blood 128 mg/dL (75-99)
[2018-02-16] MEDS: BISACODYL 10 MG SUPP RECTAL PRN (18:45)
[2018-02-16] MEDS: DEXTROSE 5%-0.45% NACL 1,000 ML IV SCH (18:51)
[2018-02-16] MEDS: INSULIN DETEMIR 100 UNIT/ML 10 ML VIAL SQ SCH (20:17)
[2018-02-16] MEDS: SENNOSIDES-DOCUSATE SODIUM 1 EACH TAB PO SCH (20:17)
[2018-02-16 21:32] LABS: Glucose,Whole Blood 157 mg/dL (75-99)
[2018-02-17] MEDS: INSULIN ASPART 100 UNIT/ML 1 ML 10 ML VIAL SQ SCH ×5 (00:12→23:46)
[2018-02-17] MEDS: HEPARIN SODIUM,PORCINE 5,000 UNIT/ML 1 ML VIAL SQ SCH ×3 (00:12→16:33)
[2018-02-17 00:13] LABS: Glucose,Whole Blood 112 mg/dL (75-99)
[2018-02-17] MEDS: MEROPENEM 1 GM in SODIUM CHLORIDE 0.9% 100 ML IVPB SCH ×3 (00:13→16:33)
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
[2018-02-17] MEDS: IPRATROPIUM-ALBUTEROL 3 ML NEB INHALATION SCH ×5 (03:47→20:52)
[2018-02-17 05:17] LABS: Glucose,Whole Blood 117 mg/dL (75-99)
[2018-02-17 05:36] LABS: Basophils # (A) 0.1 k/uL (0-0.2); Basophils % (A) 0 %; Eosinophils # (A) 0.3 k/uL (0-0.7); Eosinophils % (A) 1 %; HCT 33.1 % (39.0-53.0); HGB 10.9 gm/dL (13.0-17.5); Lymphocytes # (A) 5.6 k/uL (1.0-4.8); Lymphocytes % (A) 24 %; MCH 31.5 pg (25.0-35.0); MCHC 32.9 g/dL (31.0-37.0); MCV 95.8 fL (80.0-100.0); Mean Platelet Volume 7.5; Monocytes # (A) 1.4 k/uL (0-1.0); Monocytes % (A) 6 %; Neutrophils # (A) 15.5 k/uL (1.3-7.7); Neutrophils % (A) 67 %; Platelet Count 678 k/uL (150-450); RBC 3.46 m/uL (4.30-5.90); WBC 23.1 k/uL (3.8-10.6)
[2018-02-17 06:02] LABS: ALT 76 U/L (21-72); AST 25 U/L (17-59); Alkaline Phosphatase 50 U/L (38-126); Anion Gap 4 mmol/L; Blood Urea Nitrogen 31 mg/dL (9-20); Calcium 9.3 mg/dL (8.4-10.2); Carbon Dioxide 25 mmol/L (22-30); Chloride 115 mmol/L (98-107); Glucose 114 mg/dL (74-99); Potassium 3.8 mmol/L (3.5-5.1); Sodium 144 mmol/L (137-145); Total Bilirubin 0.7 mg/dL (0.2-1.3)
--- NOTE | 2018-02-17 07:39 | XR ---
EXAMINATION TYPE: XR chest 1V portable DATE OF EXAM: 02/17/2018 COMPARISON: 02/16/2018 HISTORY: Post CABG. Follow-up exam. TECHNIQUE: Single frontal view of the chest is obtained. FINDINGS: There are low lung volumes and right basilar airspace disease. There is improved aeration of the remainder of the lungs. Left-sided PICC terminates in the superior vena cava. Post CABG change s are seen of the heart. Cardiomediastinal silhouette is upper limits of normal. Radiopaque substance is noted within the left hemicolon. No pneumothorax or sizable pleural effusion. IMPRESSION: Low lung volumes with improved aeration of the lungs. Persistent right basilar subsegmen yvonne atelectasis.
[2018-02-17] MEDS: BUDESONIDE 1 MG/2 ML NEBU INHALATION SCH ×2 (07:49→20:53)
[2018-02-17] MEDS: FORMOTEROL FUMARATE 20 MCG/2 ML NEBU INHALATION SCH ×2 (07:51→20:53)
[2018-02-17 07:57] LABS: Polychromasia Present; Toxic Granulation Present
--- NOTE | 2018-02-17 08:31 | P.CONS ---
History of Present Illness - Chief Complaint Medical debility - History of Present Illness I had the opportunity to see patient for inpatient rehab consultation with regard to medical debility. [facility]. Seen and consultations by Drs. Desouza, Demetrio Martinez and cardiology. Chest x-rays followed for congestion. OT reports two-person total assistance for basic self-care tasks. Speech therapy assess swallow including MBS, nectar thickened and thin liquids. Previous functional history as this patient, limited by speech endurance: 42- year-old right-handed white male who is single lives in one floor home with friend or friends. Reports works. Review of Systems Review of systems: ENT: Denies sneezes or discharge. Eyes: Denies discharge or photophobia. Cardiac: Denies chest pain or palpitation. Pulmonary: Denies cough or shortness of breath. Gastrointestinal: Denies nausea, emesis, constipation, diarrhea. Genitourinary: Denies discharge or frequency. Musculoskeletal: Denies muscle or bone aches. Neurologic: Moderate to marked general weakness. Decreased voice volume. Endocrine: Denies shakes or sweats. Oncology: Denies cancers. Dermatologic: Denies rash, itching, pruritus. ALLERGY/immunology: Denies sneezes, rashes. Past Medical History Past Medical History: Coronary Artery Disease (CAD), Hypertension Additional Past Medical History / Comment(s): heart stent 2006, obesity Last Myocardial Infarction Date:: 2011 History of Any Multi-Drug Resistant Organisms: None Reported Past Surgical History: Appendectomy, Heart Catheterization With Stent Additional Past Surgical History / Comment(s): splenectomy. Past Anesthesia/Blood Transfusion Reactions: No Reported Reaction Date of Last Stent Placement:: 2006 Past Psychological History: Anxiety Smoking Status: Current every day smoker Past Alcohol Use History: Occasional Past Drug Use History: None Reported - Past Family History Father Family Medical History: Coronary Artery Disease (CAD), Diabetes Mellitus, Hypertension Mother Family Medical History: Diabetes Mellitus, Hypertension Medications and Allergies Home Medications Medication Instructions Recorded Confirmed Type ALPRAZolam [Xanax] 0.5 mg PO BID PRN 01/29/18 01/29/18 History Metoprolol Tartrate [Lopressor] 50 mg PO BID 01/29/18 01/29/18 History Allergies Allergy/AdvReac Type Severity Reaction Status Date / Time Penicillins Allergy Rash/Hives Verified 02/03/18 17:21 Physical Exam Vitals: Vital Signs Temp Pulse Resp BP Pulse Ox 02/17/18 08:09 96 02/17/18 08:03 92 02/17/18 08:02 93 02/17/18 07:54 97 02/17/18 07:52 96 02/17/18 07:00 81 23 137/91 93 L 02/17/18 06:00 87 16 137/86 92 L 02/17/18 05:00 89 16 123/81 92 L 02/17/18 04:00 99.0 F 95 16 136/81 93 L 02/17/18 03:58 95 02/17/18 03:48 96 02/17/18 03:00 94 18 100/75 94 L 02/17/18 02:00 82 16 119/78 91 L 02/17/18 01:00 89 29 H 132/87 91 L 02/17/18 00:00 100.3 F H 85 18 118/88 93 L 02/16/18 23:45 100 02/16/18 23:32 92 02/16/18 23:00 81 25 H 115/87 93 L 02/16/18 22:00 85 27 H 131/83 93 L 02/16/18 21:00 108 H 35 H 120/75 93 L 02/16/18 20:00 107 H 32 H 138/101 91 L 02/16/18 19:38 118 H 02/16/18 19:32 106 H 02/16/18 19:16 108 H 02/16/18 19:00 106 H 25 H 122/79 94 L 02/16/18 18:00 105 H 23 124/84 94 L 18 17:13 98 22 02/16/18 17:10 92 L 02/16/18 17:05 98 02/16/18 17:00 93 27 H 127/94 92 L 02/16/18 16:00 99.0 F 97 19 125/90 92 L 02/16/18 15:00 126/86 02/16/18 14:00 93 25 H 125/87 92 L 02/16/18 13:00 81 24 124/84 92 L 02/16/18 12:06 88 02/16/18 12:00 98.1 F 81 26 H 113/84 97 02/16/18 11:58 81 02/16/18 11:00 79 25 H 134/86 94 L 02/16/18 10:00 94 24 129/77 93 L 02/16/18 09:00 115 H 22 110/81 95 02/16/18 08:34 100 Intake and Output 02/16/18 02/17/18 02/17/18 22:59 06:59 14:59 Intake Total 891 930 50 Output Total 545 555 60 Balance 346 375 -10 Intake: IV 360 450 50 Dextrose 5%-0.45% NaCl 1, 80 000 ml @ 20 mls/hr IV . Q24H NICHOLAS Rx#:[id number] Dextrose 5%-0.45% NaCl 1, 200 280 40 000 ml @ 40 mls/hr IV . Q24H NICHOLAS Rx#:[id number] Meropenem 1 gm In Sodium 100 Chloride 0.9% 100 ml @ 200 mls/hr IVPB Q8HR NICHOLAS Rx#:[id number] NS 80 70 10 Intake, IV Titration 500 Amount Vancomycin 1,750 mg In 500 Sodium Chloride 0.9% 500 ml 500 ml @ 167 mls/hr IVPB Q12H NICHOLAS Rx#: [id number] Oral 480 Tube Feeding 31 Output: Urine 545 555 60 Other: Voiding Method Indwelling Catheter Indwelling Catheter Weight 98 kg ABP, PAP, CO, CI - Last 8 Hours Cardiac Output 6.4 Skin: Good color, texture, turgor. General: Medium build and comfortable appearance. Head: Normocephalic, atraumatic. Eyes: Symmetric. Pupils equal round. Ears: Symmetric. Hearing within normal limits. Mouth: Clear. Neck: Supple. Carotid without bruit. Cardiac: Regular rate and rhythm. Lungs: Clear anteriorly and posteriorly. Abdomen: Soft active nontender. Extremities: Normal tone. Neurological: Mental status: Alert, cooperative, pleasant. Fatigued and decreased voice volume. Cranial nerves: Symmetric facial tone and trapezius. Motor: Active movement throughout but less than antigravity. Sensation: Intact throughout. DTRs: Symmetric and equal throughout. Mobility: Would require maximal plus assistance for bed mobility. Results CBC & Chem 7: 02/17/18 05:00 02/17/18 05:00 Labs: Abnormal Lab Results - Last 24 Hours (Table) 02/16/18 02/16/18 02/16/18 Range/Units 12:17 18:04 21:28 WBC (3.8-10.6) k/uL RBC (4.30-5.90) m/uL Hgb (13.0-17.5) gm/dL Hct (39.0-53.0) % Plt Count (150-450) k/uL Neutrophils # (1.3-7.7) k/uL Lymphocytes # (1.0-4.8) k/uL Monocytes # (0-1.0) k/uL Chloride (98-107) mmol/L BUN (9-20) mg/dL Creatinine (0.66-1.25) mg/dL Glucose (74-99) mg/dL POC Glucose (mg/dL) 127 H 128 H 157 H (75-99) mg/dL ALT (21-72) U/L Total Protein (6.3-8.2) g/dL Albumin (3.5-5.0) g/dL 02/17/18 02/17/18 02/17/18 Range/Units 00:10 05:00 05:00 WBC 23.1 H (3.8-10.6) k/uL RBC 3.46 L (4.30-5.90) m/uL Hgb 10.9 L (13.0-17.5) gm/dL Hct 33.1 L (39.0-53.0) % Plt Count 678 H (150-450) k/uL Neutrophils # 15.5 H (1.3-7.7) k/uL Lymphocytes # 5.6 H (1.0-4.8) k/uL Monocytes # 1.4 H (0-1.0) k/uL Chloride 115 H (98-107) mmol/L BUN 31 H (9-20) mg/dL Creatinine 0.61 L (0.66-1.25) mg/dL Glucose 114 H (74-99) mg/dL POC Glucose (mg/dL) 112 H (75-99) mg/dL ALT 76 H (21-72) U/L Total Protein 6.0 L (6.3-8.2) g/dL Albumin 3.0 L (3.5-5.0) g/dL 02/17/18 Range/Units 05:14 WBC (3.8-10.6) k/uL RBC (4.30-5.90) m/uL Hgb (13.0-17.5) gm/dL Hct (39.0-53.0) % Plt Count (150-450) k/uL Neutrophils # (1.3-7.7) k/uL Lymphocytes # (1.0-4.8) k/uL Monocytes # (0-1.0) k/uL Chloride (98-107) mmol/L BUN (9-20) mg/dL Creatinine (0.66-1.25) mg/dL Glucose (74-99) mg/dL POC Glucose (mg/dL) 117 H (75-99) mg/dL ALT (21-72) U/L Total Protein (6.3-8.2) g/dL Albumin (3.5-5.0) g/dL Microbiology - Last 24 Hours (Table) 02/14/18 19:25 Blood Culture - Preliminary Blood No Growth after 48 hours 02/08/18 17:50 Blood Culture Gram Stain - Final Blood Blood Culture - Final Anaerobic Gram Positive Cocci 02/08/18 10:50 Fungal Culture - Preliminary Bronchial Washings - Left 02/11/18 07:00 Blood Culture - Preliminary Blood No Growth after 120 hours 02/11/18 06:30 Blood Culture - Preliminary Blood No Growth after 120 hours Assessment and Plan (1) Non-STEMI (non-ST elevated myocardial infarction) Current Visit: Yes Status: Acute Code(s): I21.4 - NON-ST ELEVATION (NSTEMI) MYOCARDIAL INFARCTION SNOMED Code(s): 430665910 Plan: Impression: 1. Cardiac debility. 2. Non-STEMI. 3. Hypertension. Comments and plan: At this time OT and speech ongoing in PT prescribed. Rehab prognosis however guarded due to poor endurance.
[2018-02-17] MEDS: ASPIRIN 325 MG TAB PO SCH (09:46)
[2018-02-17] MEDS: ATORVASTATIN 40 MG TAB PO SCH (09:47)
[2018-02-17] MEDS: CLOPIDOGREL 75 MG TAB PO SCH (09:47)
[2018-02-17] MEDS: CHLORHEXIDINE GLUCONATE 15 ML CUP MUCOUS MEM SCH ×2 (09:47→23:45)
[2018-02-17] MEDS: METOPROLOL TARTRATE 50 MG TAB PO SCH ×2 (09:48→22:24)
[2018-02-17] MEDS: methylPREDNISolone SOD SUCCI 40 MG/ML 1 ML VIAL IV SCH (09:49)
[2018-02-17] MEDS: amLODIPine 5 MG TAB PO SCH ×2 (09:49→22:25)
--- NOTE | 2018-02-17 11:41 | P.PN ---
Subjective Progress Note Date: 02/17/18 Principal diagnosis: Status post CABG, postoperative day #17, status post off-pump 2 vessel bypass surgery This 42-year-old male patient is postop day #9 following his 2 vessel bypass surgery, off pump. Postop, the patient has been still intubated on mechanical ventilator due to complications of ARDS. On today's evaluation, I find this patient sedated with Diprivan and currently is on 50 mics of Diprivan for sedation. He is also paralyzed with Nimbex. He is calm and comfortable and synchronous with the mechanical ventilator. Earlier this morning he was an assist-control mode of ventilation with a tidal volume of 450, FiO2 of 50% with a PEEP of 13 and a respiratory rate of 34. He was on a I:E ratio of 1.2-1 and his inspiratory time was at 1.0 seconds. He had a blood gases earlier this morning that showed a pH of 7.42 with a pCO2 of 39 and pO2 of 77 and this was done earlier this morning and FiO2 of 50%. His chest x-ray showed a left lower lobe consolidation and ET tube was in a good location with diffuse groundglass changes throughout the lung hahn bilaterally consistent with ARDS. On examination, he had bilateral rhonchi and some limited expiratory wheeze. He underwent a bronchoscopy yesterday and the bronchioloalveolar lavage from left lower lobe is still pending for now and there is no microbial growth. However, there was copious amount of rest or secretions based on the operative report and the patient is running a low-grade fever with a T-max of 11.4. Based on all this, I left lower lobe pneumonia was suspected and I started this patient on IV meropenem. IV Zosyn on consult. Despite all this, he is hemodynamically stable. He is in a sinus rhythm. Sternum is stable clean and intact. No chest tubes are in place and all of the chest tubes have been removed. The neck fluid balance is 375 mL negative over the past 24 hours. He is on no pressors. He is tolerating his tube feedings which is in the form of vital at 30 mL an hour. Is producing adequate urine output. No other significant events overnight. His white cell count has been persistently elevated and remains elevated at 32.3. Hemoglobin stable at 12.1. On today's evaluation of 02/10/2018, the patient is postop day #10. The patient remains intubated on a mechanical ventilator. The patient is sedated and paralyzed. We are still having difficulties with oxygenation nontender the patient had developed post surgical ARDS and subsequently there is an indication of a left lower lobe pneumonia. The patient had a follow-up chest x- ray today that showed worsening in the consolidation of the left lower lobe. Earlier this morning, he was assist-control mode of ventilation at a PEEP of 14 , FiO2 of 80%, respiratory rate of 26 and tidal volume of 450. The morning. The peak air pressures around 33. His blood gases from today showed a pH of 7.31 with a pCO2 of 55 and pO2 of 86. Chest x-ray shows a dense consolidation and some volume loss in the left lower lobe. Based on this, I performed a bronchoscopy on this patient. Copious amount of purulent respiratory secretions was suctioned out from the left lower lobe and the amount was estimated to be around 30 mL of purulent material. I also performed segmental bronchial washings of the left lower lobe. The cultures will be sent. I started covering this patient with IV antibiotics and I put him on IV Merrem. This morning, he is afebrile however overnight he was spiking temperature of 100.0 with a T-max of 101.3. His white cell count is up to 34,000. Platelet counts are within normal limits. Hemodynamically stable on no pressors. Tolerating tube feeds. As mentioned, all of the chest tubes have been removed. On 02/11/2018 the patient is postop day #11. I performed a bronchoscopy on this patient yesterday and copious amount of purulent respiratory secretions were suctioned out from the patient's left lower lobe. Limited cultures indicating gram-positive cocci. There is also gram-positive cocci in the blood. We suspected the patient had a left lower lobe pneumonia with secondary septicemia. The patient is currently on Merrem and dose of vancomycin was given overnight. Overall oxidation improved following the bronchoscopy. This morning, the patient is on a tidal volume of 450, rate of 26, FiO2 of 40% to 14. Peak airway pressures around 31 with metastatic impression from 20. Blood gases from this morning showed a pH of 7.4 with a pCO2 of 42 and pO2 of 11. Chest x-ray shows improvement in the expression of the left lower lobe. Based on all this, I dropped down the PEEP to 12. Hemodynamically stable. He is in a normal sinus rhythm. Is producing adequate amount of urine output. White cell count remains elevated at 50.7 although somewhat improved compared to yesterday. Renal function is stable. The patient is currently afebrile. He is tolerating his tube feeds. Having regular bowel movements. His last temperature spike of 11.4 was from yesterday evening. No other significant events overnight. He is quite sedated on Diprivan at 50 mics. He was given a sedation holiday yesterday and he arouse and he was slightly agitated but cannot orotracheal tube and based on that he was placed back on sedation. On 02/12/2018 patient is postop day #12. The patient is doing well. The patient is sedated with Diprivan this morning however I'm in the process of taking him off the sedation and switching him to Precedex for sedation. The patient is still on mechanical ventilator. This morning's an assist-control at the rate of 26 right-sided volume of 450 and an FiO2 of 40% and a PEEP of 10. I the peak and static air pressures were not elevated and there were steadily declining. The patient's blood gas from this morning showed a pH of 7.43 with a pCO2 of 37 and pO2 of 98. Based on that, I dropped the PEEP down to 8 and then down to 5 cm of water and the patient was able to tolerate drop in the PEEP that was done over 6 hours and the saturation remains above 90%. I am at this point weaning the patient off the Diprivan and using Precedex for sedation. The patient is gradually arousing. Around half an hour ago, is opening his eyes and is following simple commands. Chest x-ray from today shows adequate expansion of both lungs and some limited infiltration seen in the left lung base. No new cultures and the previous coronary strep infection. The patient remains on a combination of IV Merrem and vancomycin. He is afebrile. On IV Solu-Medrol. He is tolerating his tube feeds via Dobbhoff. White cell count is gradually improving is down to 25. Hemoglobin stable at 9.4. Renal function is stable. No other significant events overnight. The neck fluid balance is +250 mL over the past 24 hours. On 02/13/2018 the patient is postop day #13. There has been steady improvement in his overall vascular status. Yesterday without too point with dropped the patient's PEEP down to 5 and FiO2 was kept at 40% with a tidal volume of 450 and the respiratory rate of 22. The patient was able to tolerate his vent setting without any major difficulties. He was given a sedation holiday and he got to the point where he was wide awake and comfortable and following commands and answering questions. Nevertheless he was profoundly weak and had a weak cough. I was not comfortable and extubating this patient even though his weaning parameters were good. However, his blood gases while being on a pressure support of 5 and a PEEP of 5 showed a component of respiratory alkalosis with a pH of 7.52 and a pCO2 of 30 and pO2 of 60 and the patient was becoming more tachypneic. Based on this, he was kept on sedation overnight and we're the process of repeating the weaning trial again this morning. On today' s chest x-ray, the patient has developed some limited bilateral lower lobe pulmonary infiltrates/atelectasis. Nevertheless, he does not have any significant respiratory secretions. He is on a combination of Merrem and vancomycin. The patient is hemodynamically stable. The patient is afebrile. White cell count is at 29.8. Morning blood gases showed a pH of 7.44 with a pCO2 of 35 and pO2 of 89. He is tolerating his enteral feeding for nutritional support. Developed a bowel movements. Surgical wound sites are dry clean and intact chest tubes have been removed. Hemoglobin stable. No other significant events overnight. I'm in the process of weaning the prevent and keeping the patient on low-dose Precedex. We will recheck his weaning parameters and assess his readiness to wean. Patient seen today 02/14/2018 in follow-up in the intensive care unit. This is postoperative day #14. He is currently resting comfortably in bed. He is awake and alert in no acute distress. He has some ongoing hoarseness. He is currently maintaining O2 saturations in the 90s on 5 L/m per nasal cannula. He' s been afebrile. He is currently in sinus rhythm. His chest x-ray showing improved aeration in both lungs. Follow-up blood cultures reveal no growth after 72 hours. White count 41.2. Hemoglobin 11.9. Creatinine 0.71. He remains on DuoNeb inhalations, Pulmicort and Perforomist inhalations. He is currently on vancomycin and meropenem. We decreased his IV Solu-Medrol. He was given additional Lasix this morning. Remains in a negative balance. On 02/15/2018 I'm seeing this patient in intensive care unit for a follow-up. The patient is postop day #15. The patient is currently on room air. Sternum stable clean and intact. Overnight he had some delirium and for that reason he was given IV Haldol. Currently he is more oriented however on and off I feel it is still foggy. There is obvious motor weakness in all 4 extremities and he is gradually improving. Unable to move him up on a chair today. No fever. No chills. Chest x-ray still showing pulmonary vessel congestion and patient will be given another dose of Lasix and the patient has been negative fluid balance over the past 24-48 hours. The patient is also on IV Solu-Medrol 40 mg every 24 hours this was tapered today. He is receiving Levemir insulin 10 units daily at bedtime. The patient is also on a combination of vancomycin and meropenem. Repeat cultures were sent. Infectious diseases managing the patient 's antibiotic coverage. Overall his antibiotic coverage can be simplified for now. Despite his fogginess and cloudiness in his mentation, the patient is able to move all 4 extremities. He is able to say a few sentences however he speaks only short sentences. He is obviously hoarse related to prolonged intubation. On 02/16/2018, patient remains in the intensive care unit, his postoperative day #16. Currently on room air, seems to be comfortable, in no form of respiratory distress, however he feels generally weak, and barely able to move his upper extremities against gravity. Patient remains on multiple medications including diuretics, antibiotics with vancomycin and Merrem, patient continues to have an infiltrate involving the left lower lobe. No active pulmonary symptoms at present. He denies any shortness of breath or chest pain. Continues to have leukocytosis with WBC count of 24.2 hemoglobin is 12 electrolytes and renal profile are normal. Chest x-ray this morning showed slight interstitial changes bilaterally, possibly interstitial edema, and there is significant improvement of aeration of lung bases especially at the left lung base. On 02/17/2018, patient remains in the intensive care unit, his postoperative day #17. Patient remains on room air, doing well, a Dobbhoff tube was attempted to be placed yesterday by the cardiac surgeon, however multiple attempts failed. Patient is now on feedings orally as per the recommendation of the speech pathologist. He remains on multiple medications including antibiotics, diuretics, and his chest x-ray is showing significant improvement with minimal atelectasis at the bases. Patient was seen by Dr. Del Valle yesterday , and plans are in progress to send him to a rehab. Continues to have leukocytosis with WBC count of 23.2 but improving hemoglobin is 10.9 basic metabolic profile and renal profile are normal. Chest x-ray was reviewed and showing steady improvement. Objective - Vital Signs Vital signs: Vital Signs Temp 99.0 F 02/17/18 04:00 Pulse 96 02/17/18 08:09 Resp 23 02/17/18 07:00 BP 137/91 02/17/18 07:00 Pulse Ox 97 02/17/18 07:54 Intake & Output 02/16/18 02/17/18 02/17/18 18:59 06:59 18:59 Intake Total 1000 1661 50 Output Total 1005 745 60 Balance -5 916 -10 Weight 94 kg 98 kg Intake: IV 1000 650 50 Dextrose 5%-0.45% NaCl 1, 200 40 000 ml @ 20 mls/hr IV . Q24H [facility] Rx#:[id number] Dextrose 5%-0.45% NaCl 1, 80 400 40 000 ml @ 40 mls/hr IV . Q24H [facility] Rx#:[id number] Meropenem 1 gm In Sodium 100 100 Chloride 0.9% 100 ml @ 200 mls/hr IVPB Q8HR [facility] Rx#:[id number] NS 120 110 10 Vancomycin 1,750 mg In 500 Sodium Chloride 0.9% 500 ml 500 ml @ 167 mls/hr IVPB Q12H [facility] Rx#: [id number] Intake, IV Titration 500 Amount Vancomycin 1,750 mg In 500 Sodium Chloride 0.9% 500 ml 500 ml @ 167 mls/hr IVPB Q12H [facility] Rx#: [id number] Oral 480 Tube Feeding 31 Output: Urine 1005 745 60 Other: Voiding Method Indwelling Catheter Indwelling Catheter ABP, PAP, CO, CI - Last Documented Arterial Blood Pressure 100/64 Pulmonary Artery Pressure 36/26 Cardiac Output 6.4 Cardiac Index 2.9 - Exam Physical Exam: Revealed a 42-year-old white male in no distress. On room air. Head: Atraumatic, normocephalic. HEENT:[Neck is supple.] [No neck masses.] [No thyromegaly.] [No JVD.] PERRLA, EOMI, no icterus. Chest: [Clear throughout, no crackles, no rhonchi, no wheezes.] Cardiac Exam: [Normal S1 and S2, no S3 gallop, no murmur.] Abdomen: [Soft, nontender, no megaly, no rebound, no guarding, normal bowel sounds.] Extremities: [No clubbing, no edema, no cyanosis.] Neurological Exam: [No focal neurologic deficit.] However the patient is noted to be generally weak, all 4 extremities are noted to be 3/5 in strength. Possibly a bit stronger compared to yesterday, patient can keep his upper extremities high longer against gravity today. Psychiatric: Normal mood affect and mental status examination. Skin: No rashes. - Labs CBC & Chem 7: 02/17/18 05:00 02/17/18 05:00 Labs: Abnormal Lab Results - Last 24 Hours (Table) 02/16/18 02/16/18 02/16/18 Range/Units 12:17 18:04 21:28 WBC (3.8-10.6) k/uL RBC (4.30-5.90) m/uL Hgb (13.0-17.5) gm/dL Hct (39.0-53.0) % Plt Count (150-450) k/uL Neutrophils # (1.3-7.7) k/uL Lymphocytes # (1.0-4.8) k/uL Monocytes # (0-1.0) k/uL Chloride (98-107) mmol/L BUN (9-20) mg/dL Creatinine (0.66-1.25) mg/dL Glucose (74-99) mg/dL POC Glucose (mg/dL) 127 H 128 H 157 H (75-99) mg/dL ALT (21-72) U/L Total Protein (6.3-8.2) g/dL Albumin (3.5-5.0) g/dL 02/17/18 02/17/18 02/17/18 Range/Units 00:10 05:00 05:00 WBC 23.1 H (3.8-10.6) k/uL RBC 3.46 L (4.30-5.90) m/uL Hgb 10.9 L (13.0-17.5) gm/dL Hct 33.1 L (39.0-53.0) % Plt Count 678 H (150-450) k/uL Neutrophils # 15.5 H (1.3-7.7) k/uL Lymphocytes # 5.6 H (1.0-4.8) k/uL Monocytes # 1.4 H (0-1.0) k/uL Chloride 115 H (98-107) mmol/L BUN 31 H (9-20) mg/dL Creatinine 0.61 L (0.66-1.25) mg/dL Glucose 114 H (74-99) mg/dL POC Glucose (mg/dL) 112 H (75-99) mg/dL ALT 76 H (21-72) U/L Total Protein 6.0 L (6.3-8.2) g/dL Albumin 3.0 L (3.5-5.0) g/dL 02/17/18 Range/Units 05:14 WBC (3.8-10.6) k/uL RBC (4.30-5.90) m/uL Hgb (13.0-17.5) gm/dL Hct (39.0-53.0) % Plt Count (150-450) k/uL Neutrophils # (1.3-7.7) k/uL Lymphocytes # (1.0-4.8) k/uL Monocytes # (0-1.0) k/uL Chloride (98-107) mmol/L BUN (9-20) mg/dL Creatinine (0.66-1.25) mg/dL Glucose (74-99) mg/dL POC Glucose (mg/dL) 117 H (75-99) mg/dL ALT (21-72) U/L Total Protein (6.3-8.2) g/dL Albumin (3.5-5.0) g/dL Microbiology - Last 24 Hours (Table) 02/14/18 21:00 Gram Stain - Final Sputum Sputum Culture - Final 02/11/18 07:00 Blood Culture - Final Blood No Growth after 144 hours 02/11/18 06:30 Blood Culture - Final Blood No Growth after 144 hours 02/14/18 19:25 Blood Culture - Preliminary Blood No Growth after 48 hours 02/08/18 17:50 Blood Culture Gram Stain - Final Blood Blood Culture - Final Anaerobic Gram Positive Cocci 02/08/18 10:50 Fungal Culture - Preliminary Bronchial Washings - Left Assessment and Plan Assessment: Impression: 1 status post CABG postoperative day #17 2 postoperative respiratory failure/hypoxic in nature secondary to ARDS. 3 acute ventilator associated left lower lobe pneumonia, remains on Zosyn and vancomycin. 4 acute critical illness polyneuropathy and polymyopathy. 5 intermittent episodes of delirium and metabolic encephalopathy improving. 6 previous history of splenectomy, and underlying COPD. Recommendation: Continue present supportive care measures, patient was seen by the rehab physician yesterday, and plans are in progress to eventually transferred to rehab. In the meantime continue incentive spirometry, ambulation , and physical therapy. Overall the patient has made a significant improvement considering his initial presentation. Time with Patient: Less than 30
[2018-02-17] MEDS: VANCOMYCIN 1,750 MG in SODIUM CHLORIDE 0.9% 500 ML 500 ML IVPB SCH (12:11)
[2018-02-17] MEDS: PANTOPRAZOLE 40 MG TABLET PO SCH (12:14)
[2018-02-17 13:10] LABS: Glucose,Whole Blood 155 mg/dL (75-99)
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
[2018-02-17 17:55] LABS: Glucose,Whole Blood 119 mg/dL (75-99)
--- NOTE | 2018-02-17 19:20 | P.PN ---
Subjective Progress note being dictated for Dr. Potter. Interval history:Non-ST elevated ND status post coronary artery bypass graft. Mr. Castillo is a 42-year-old male with a past medical history of hypertension, hyperlipidemia, nicotine dependence, coronary artery disease with prior stenting performed in 2003 2004 in [place] coming into the hospital with a chief complaint of chest discomfort in the upper mid sternum. Patient describes it as severe tightness and heaviness and he was short of breath and diaphoretic. Patient pain was so severe that he was unable to speak at the time when he had the chest pain. In the ED patient had elevated troponins and started on IV heparin. Patient subsequently underwent cardiac cath which revealed a total occluded right coronary artery that appeared to be chronically occluded. There is also a complex lesion and in-stent restenosis of the proximal LAD. So he was recommended to get a coronary artery bypass graft that is scheduled for tomorrow morning. Patient has risk factors of smoking for the past 26 years almost 1 pack per day. 02/01/18 - patient is postop day 1. Patient is in the ICU currently on mechanical ventilation. He is sedated with propofol, Nimbex and fentanyl. Patient was hypoxemic on 100% FiO2 yesterday, which could be due to acute lung injury. So his ventilator settings have been adjusted by Dr. Gipson. He is still on Cardizem drip. On 02/02/2018 Patient is still on mechanical ventilator and sedated.. Currently on Cardizem drip. Also present on insulin drip. Dobbhoff tube was placed for nutrition. Chest x-ray showed left lower lobe atelectasis and infiltrate. Patient is with pleural chest tube. Mediastinal chest tube was removed. No fever noted. Pulmonary, CT surgery is following. 02/03/2018 Patient had postoperative hypoxemic respiratory failure due to suspected ARDS. Currently patient is on mechanical ventilator. Currently Cardizem drip is off. Feeding Dobbhoff tube. Currently patient is sedated. Review of systems could not be apparent from the patient Chest x-ray showed no acute cardiopulmonary process. 02/06/2018 Patient is currently intubated and sedated. Patient developed hypoxemic respiratory failure postoperatively likely due to ARDS. Patient has been afebrile. Otherwise still tachycardic. Metoprolol dose has been increased. Patient will be started on Lantus and insulin sliding scale. Will hold insulin drip Chest tube has been discontinued. Pulmonary and CT surgery is following. Urine culture is growing Klebsiella. 02/09/2018 remains paralyzed on Nimbex, sedated on diprovan. Remains vent dependent, FiO2 50%/+13 of PEEP. Hemoglobin 12.1. Chest x-ray reporting left lower lobe atelectasis versus pneumonia and associated effusion. Retrocardiac density. Underwent bronchoscopy yesterday, copious secretions, cultures currently reporting no microbial growth, suspected left lower lobe pneumonia. T -max 101.4. WBC 32.3. Sputum culture pending. Merrem initiated. Tolerating tube feeds with minimal to no residuals. 02/10/2018 last night/voice over announcer hours difficulties with oxygenation, FiO2 increased up to 100% . Currently maintained on mechanical ventilation with FiO2 decreased to 80%/+14 of PEEP . Chest x-ray reporting worsening left lower lobe consolidation .underwent bronchoscopy today, purulent mucous plugs suctioned from the left lower lobe. Maintained on IV antibiotics as per infectious disease. Nimbex off. T-max 101.3, WBC 34.4. Telemetry sinus rhythm. Potassium 5.9, redraw pending. 02/11/2018 remains vent dependent, FiO2 40%, PEEP decreased to +10. Chest x- ray reporting improvement of the left lower lobe. Preliminary bronch & blood cultures reporting gram-positive cocci. ABGs pending. Creamy cortes secretions suctioned from endotracheal tube. Telemetry sinus rhythm. WBC trending down, 30.7. T-max 101.4. Potassium down to 5.6. Remains off of Cleviprex. 02/16/18 sitting up in chair. Swallow evaluation pending. T-max 100, WBC 24.2 .Maintained on antibiotics of vancomycin, Merrem. Continues being diuresed with 24-hour I&O reflecting a negative fluid balance. Maintaining O2 sats in the mid 90s on room air. Chest x-ray reporting improvement bilateral bases aeration, left bibasilar patchy atelectasis, possible interstitial edema. Incentive spirometer [id number] .Generalized weakness persists. Active Medications Acetaminophen (Tylenol Tab) 1,000 mg PO Q6HR PRN PRN Reason: Fever and/ or Pain Last Admin: 02/10/18 20:32 Dose: 1,000 mg Albuterol/Ipratropium (Duoneb 0.5 Mg-3 Mg/3 Ml Soln) 3 ml INHALATION RT-Q2H PRN PRN Reason: Shortness Of Breath Or Wheezing Albuterol/Ipratropium (Duoneb 0.5 Mg-3 Mg/3 Ml Soln) 3 ml INHALATION RT-Q4H [facility] Last Admin: 02/16/18 17:02 Dose: 3 ml Amlodipine Besylate (Norvasc) 5 mg PO BID [facility] Last Admin: 02/16/18 08:41 Dose: 5 mg Aspirin (Aspirin) 325 mg PO DAILY [facility] Last Admin: 02/16/18 08:41 Dose: 325 mg Atorvastatin Calcium (Lipitor) 40 mg PO DAILY [facility] Last Admin: 02/16/18 08:41 Dose: 40 mg Bisacodyl (Dulcolax) 10 mg RECTAL DAILY PRN PRN Reason: Constipation Last Admin: 02/03/18 08:45 Dose: 10 mg Budesonide (Pulmicort) 1 mg INHALATION RT-BID [facility] Last Admin: 02/16/18 08:11 Dose: 1 mg Chlorhexidine Gluconate (Peridex) 15 ml MUCOUS MEM BID [facility] Last Admin: 02/16/18 08:47 Dose: 15 ml Clopidogrel Bisulfate (Plavix) 75 mg PO DAILY [facility] Last Admin: 02/16/18 08:41 Dose: 75 mg Formoterol Fumarate (Perforomist) 20 mcg INHALATION RT-BID [facility] Last Admin: 02/16/18 08:11 Dose: 20 mcg Haloperidol Lactate (Haldol) 1 mg IVP Q1H PRN PRN Reason: Agitation or Acute Psychosis Last Admin: 02/14/18 21:32 Dose: 1 mg Heparin Sodium (Porcine) (Heparin) 5,000 unit SQ Q8HR [facility] Last Admin: 02/16/18 15:59 Dose: 5,000 unit Hydralazine HCl (Apresoline) 20 mg IVP Q4HR PRN PRN Reason: Blood Pressure - High Last Admin: 02/15/18 02:17 Dose: 20 mg Amiodarone HCl 150 mg/ (Dextrose/Water) 103 mls @ 618 mls/hr IV .Q10M PRN; Protocol PRN Reason: Per protocol Amiodarone HCl 450 mg/ (Dextrose/Water) 259 mls @ 34.53 mls/hr IV .Q7H31M PRN; Protocol PRN Reason: Per Protocol Meropenem 1 gm/ Sodium (Chloride) 100 mls @ 200 mls/hr IVPB Q8HR [facility]; Protocol Last Admin: 02/16/18 15:59 Dose: 200 mls/hr Vancomycin HCl 1,750 mg/ (Sodium Chloride) 500 mls @ 167 mls/hr IVPB Q12H [facility] Last Admin: 02/16/18 10:24 Dose: 167 mls/hr Dextrose/Sodium Chloride (Dextrose 5%-1/2ns Iv Soln) 1,000 mls @ 40 mls/hr IV .Q24H [facility] Insulin Aspart (Novolog) 0 unit SQ Q6HR [facility]; Protocol Last Admin: 02/16/18 15:59 Dose: Not Given Insulin Detemir (Levemir) 10 unit SQ HS [facility] Last Admin: 02/15/18 21:58 Dose: 10 unit Magnesium Hydroxide (Milk Of Magnesia) 2,400 mg PO BID PRN PRN Reason: Constipation Last Admin: 02/12/18 08:10 Dose: 2,400 mg Methylprednisolone Sodium Succinate (Solu-Medrol) 40 mg IV DAILY [facility] Last Admin: 02/16/18 08:47 Dose: 40 mg Metoprolol Tartrate (Lopressor) 100 mg PO BID [facility] Last Admin: 02/16/18 08:41 Dose: 100 mg Miscellaneous Information (Magnesium Per Protocol) 1 each MISCELLANE DAILY PRN ; Protocol PRN Reason: Per Protocol Miscellaneous Information (Phosphorus Per Protocol) 1 each MISCELLANE DAILY PRN ; Protocol PRN Reason: Per Protocol Miscellaneous Information (Potassium Per Protocol) 1 each MISCELLANE DAILY PRN ; Protocol PRN Reason: Per Protocol Ondansetron HCl (Zofran) 4 mg IVP Q6HR PRN PRN Reason: Nausea And Vomiting Pantoprazole Sodium (Protonix) 40 mg PO AC-BRKFST [facility] Last Admin: 02/16/18 08:41 Dose: 40 mg Senna/Docusate Sodium (Senokot-S) 2 each PO HS [facility] Last Admin: 02/15/18 21:57 Dose: 2 each Sodium Chloride (Saline Flush) 10 ml IV BID [facility] Last Admin: 02/16/18 08:47 Dose: 10 ml Objective - Vital Signs Vital signs: Vital Signs Temp 99.0 F 02/16/18 16:00 Pulse 105 H 02/16/18 18:00 Resp 23 02/16/18 18:00 BP 124/84 02/16/18 18:00 Pulse Ox 94 L 02/16/18 18:00 Intake & Output 02/15/18 02/16/18 02/16/18 18:59 06:59 18:59 Intake Total 1460 1060 900 Output Total 2435 870 850 Balance -975 190 50 Weight 94 kg 94 kg Intake: IV 1460 460 900 Dextrose 5%-0.45% NaCl 1, 240 240 200 000 ml @ 20 mls/hr IV . Q24H [facility] Rx#:[id number] Meropenem 1 gm In Sodium 100 100 100 Chloride 0.9% 100 ml @ 200 mls/hr IVPB Q8HR [facility] Rx#:[id number] NS 120 120 100 Vancomycin 1,750 mg In 1000 500 Sodium Chloride 0.9% 500 ml 500 ml @ 167 mls/hr IVPB Q12H [facility] Rx#: [id number] Intake, IV Titration 600 Amount Meropenem 1 gm In Sodium 100 Chloride 0.9% 100 ml @ 200 mls/hr IVPB Q8HR [facility] Rx#:[id number] Vancomycin 1,750 mg In 500 Sodium Chloride 0.9% 500 ml 500 ml @ 167 mls/hr IVPB Q12H [facility] Rx#: [id number] Output: Urine 2435 870 850 Other: Voiding Method Indwelling Catheter Indwelling Catheter Indwelling Catheter ABP, PAP, CO, CI - Last Documented Arterial Blood Pressure 100/64 Pulmonary Artery Pressure 36/26 Cardiac Output 6.4 Cardiac Index 2.9 - Exam GENERAL: Patient is sitting up in chair, awake alert and oriented 2. No acute distress. HEENT: Extraocular muscles intact. No pallor no icterus. CARDIOVASCULAR: S1 and S2 present. No murmurs, rubs, or gallops. PULMONARY: Diminished bilateral bases. No crackles or wheezes. No rhonchi ABDOMEN: Soft, nontender, nondistended, normoactive bowel sounds. No palpable organomegaly. EXTREMITIES: No rash. Pulses palpable laterally 2+. +1 generalized edema. NEUROLOGICAL: Awake alert and oriented 2. Hoarse voice ,generalized weakness. Able to move all his extremities. SKIN: No rashes. No lesions Microbiology - Last 24 Hours (Table) 02/11/18 07:00 Blood Culture - Preliminary Blood No Growth after 120 hours 02/11/18 06:30 Blood Culture - Preliminary Blood No Growth after 120 hours 02/14/18 19:25 Blood Culture - Preliminary Blood No Growth after 24 hours 02/14/18 14:10 Urine Culture - Final Urine,Catheterized 02/14/18 21:00 Gram Stain - Preliminary Sputum Sputum Culture - Preliminary - Labs CBC & Chem 7: 02/17/18 05:00 02/17/18 05:00 Labs: Abnormal Lab Results - Last 24 Hours (Table) 02/16/18 02/16/18 02/16/18 Range/Units 01:20 05:35 05:35 WBC 24.2 H (3.8-10.6) k/uL RBC 3.88 L (4.30-5.90) m/uL Hgb 12.0 L (13.0-17.5) gm/dL Hct 37.5 L (39.0-53.0) % Plt Count 727 H (150-450) k/uL Neutrophils # 16.8 H (1.3-7.7) k/uL Lymphocytes # 4.9 H (1.0-4.8) k/uL Monocytes # 1.8 H (0-1.0) k/uL Chloride 112 H (98-107) mmol/L BUN 34 H (9-20) mg/dL Creatinine 0.65 L (0.66-1.25) mg/dL Glucose 133 H (74-99) mg/dL POC Glucose (mg/dL) 123 H (75-99) mg/dL ALT 82 H (21-72) U/L Albumin 3.4 L (3.5-5.0) g/dL 02/16/18 02/16/18 Range/Units 05:51 12:17 WBC (3.8-10.6) k/uL RBC (4.30-5.90) m/uL Hgb (13.0-17.5) gm/dL Hct (39.0-53.0) % Plt Count (150-450) k/uL Neutrophils # (1.3-7.7) k/uL Lymphocytes # (1.0-4.8) k/uL Monocytes # (0-1.0) k/uL Chloride (98-107) mmol/L BUN (9-20) mg/dL Creatinine (0.66-1.25) mg/dL Glucose (74-99) mg/dL POC Glucose (mg/dL) 133 H 127 H (75-99) mg/dL ALT (21-72) U/L Albumin (3.5-5.0) g/dL Microbiology - Last 24 Hours (Table) 02/08/18 17:50 Blood Culture Gram Stain - Final Blood Blood Culture - Final Anaerobic Gram Positive Cocci 02/08/18 10:50 Fungal Culture - Preliminary Bronchial Washings - Left 02/11/18 07:00 Blood Culture - Preliminary Blood No Growth after 120 hours 02/11/18 06:30 Blood Culture - Preliminary Blood No Growth after 120 hours 02/14/18 19:25 Blood Culture - Preliminary Blood No Growth after 24 hours 02/14/18 14:10 Urine Culture - Final Urine,Catheterized 02/14/18 21:00 Gram Stain - Preliminary Sputum Sputum Culture - Preliminary Assessment and Plan Assessment: CAD ,Status post two-vessel coronary artery bypass grafting Acute hypoxic respiratory, status post mechanical ventilation dependent- likely due to ARDS Acute coronary syndrome/non-ST elevated ND Status post bronchoscopy, mucus plugging left lower lobe pneumonia, ventilator associated Acute critical polyneuropathy and polymyopathy Current smoker with a 26 pack years Hypertension Obesity, BMI 32.4 Generalized anxiety Acute metabolic encephalopathy, delirium improving, multifactorial. Plan: Continue on current medication regime , GI prophylaxis -Protonix , DVT prophylaxis subcu heparin ,monitoring and symptomatic treatment. Maintain nebulized bronchodilators, steroids. Continue on Merrem and vancomycin as per ID. Aggressive pulmonary toileting with incentive spirometer reinforced. Antibiotics as per infectious disease. Smoking cessation readdressed. PT/OT, significant generalized weakness, anticipate subacute rehab at discharge. Prognosis guarded. The impression and plan of care has been dictated as directed. : I performed a history and examination of this patient, discussed the same with the dictator. I agree with the dictator's note ,documented as a scribe. Any additional findings or plans will be noted.
--- NOTE | 2018-02-17 19:30 | P.PN ---
Subjective Progress Note Date: 02/17/18 Progress note being dictated for Dr. Potter. Interval history:Non-ST elevated [place] status post coronary artery bypass graft. Mr. Castillo is a 42-year-old male with a past medical history of hypertension, hyperlipidemia, nicotine dependence, coronary artery disease with prior stenting performed in 2003 2004 in [place] coming into the hospital with a chief complaint of chest discomfort in the upper mid sternum. Patient describes it as severe tightness and heaviness and he was short of breath and diaphoretic. Patient pain was so severe that he was unable to speak at the time when he had the chest pain. In the ED patient had elevated troponins and started on IV heparin. Patient subsequently underwent cardiac cath which revealed a total occluded right coronary artery that appeared to be chronically occluded. There is also a complex lesion and in-stent restenosis of the proximal LAD. So he was recommended to get a coronary artery bypass graft that is scheduled for tomorrow morning. Patient has risk factors of smoking for the past 26 years almost 1 pack per day. 02/01/18 - patient is postop day 1. Patient is in the ICU currently on mechanical ventilation. He is sedated with propofol, Nimbex and fentanyl. Patient was hypoxemic on 100% FiO2 yesterday, which could be due to acute lung injury. So his ventilator settings have been adjusted by Dr. Gipson. He is still on Cardizem drip. On 02/02/2018 Patient is still on mechanical ventilator and sedated.. Currently on Cardizem drip. Also present on insulin drip. Dobbhoff tube was placed for nutrition. Chest x-ray showed left lower lobe atelectasis and infiltrate. Patient is with pleural chest tube. Mediastinal chest tube was removed. No fever noted. Pulmonary, CT surgery is following. 02/03/2018 Patient had postoperative hypoxemic respiratory failure due to suspected ARDS. Currently patient is on mechanical ventilator. Currently Cardizem drip is off. Feeding Dobbhoff tube. Currently patient is sedated. Review of systems could not be apparent from the patient Chest x-ray showed no acute cardiopulmonary process. 02/06/2018 Patient is currently intubated and sedated. Patient developed hypoxemic respiratory failure postoperatively likely due to ARDS. Patient has been afebrile. Otherwise still tachycardic. Metoprolol dose has been increased. Patient will be started on Lantus and insulin sliding scale. Will hold insulin drip Chest tube has been discontinued. Pulmonary and CT surgery is following. Urine culture is growing Klebsiella. 02/09/2018 remains paralyzed on Nimbex, sedated on diprovan. Remains vent dependent, FiO2 50%/+13 of PEEP. Hemoglobin 12.1. Chest x-ray reporting left lower lobe atelectasis versus pneumonia and associated effusion. Retrocardiac density. Underwent bronchoscopy yesterday, copious secretions, cultures currently reporting no microbial growth, suspected left lower lobe pneumonia. T -max 101.4. WBC 32.3. Sputum culture pending. Merrem initiated. Tolerating tube feeds with minimal to no residuals. 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 Currently maintained on mechanical ventilation with FiO2 decreased to 80%/+14 of PEEP . Chest x-ray reporting worsening left lower lobe consolidation .underwent bronchoscopy today, purulent mucous plugs suctioned from the left lower lobe. Maintained on IV antibiotics as per infectious disease. Nimbex off. T-max 101.3, WBC 34.4. Telemetry sinus rhythm. Potassium 5.9, redraw pending. 02/11/2018 remains vent dependent, FiO2 40%, PEEP decreased to +10. Chest x- ray reporting improvement of the left lower lobe. Preliminary bronch & blood cultures reporting gram-positive cocci. ABGs pending. Creamy cortes secretions suctioned from endotracheal tube. Telemetry sinus rhythm. WBC trending down, 30.7. T-max 101.4. Potassium down to 5.6. Remains off of Cleviprex. 02/16/18 sitting up in chair. Swallow evaluation pending. T-max 100, WBC 24.2 .Maintained on antibiotics of vancomycin, Merrem. Continues being diuresed with 24-hour I&O reflecting a negative fluid balance. Maintaining O2 sats in the mid 90s on room air. Chest x-ray reporting improvement bilateral bases aeration, left bibasilar patchy atelectasis, possible interstitial edema. Incentive spirometer [id number] .Generalized weakness persists. Active Medications Acetaminophen (Tylenol Tab) 1,000 mg PO Q6HR PRN PRN Reason: Fever and/ or Pain Last Admin: 02/10/18 20:32 Dose: 1,000 mg Albuterol/Ipratropium (Duoneb 0.5 Mg-3 Mg/3 Ml Soln) 3 ml INHALATION RT-Q2H PRN PRN Reason: Shortness Of Breath Or Wheezing Albuterol/Ipratropium (Duoneb 0.5 Mg-3 Mg/3 Ml Soln) 3 ml INHALATION RT-Q4H [facility] Last Admin: 02/16/18 17:02 Dose: 3 ml Amlodipine Besylate (Norvasc) 5 mg PO BID [facility] Last Admin: 02/16/18 08:41 Dose: 5 mg Aspirin (Aspirin) 325 mg PO DAILY [facility] Last Admin: 02/16/18 08:41 Dose: 325 mg Atorvastatin Calcium (Lipitor) 40 mg PO DAILY [facility] Last Admin: 02/16/18 08:41 Dose: 40 mg Bisacodyl (Dulcolax) 10 mg RECTAL DAILY PRN PRN Reason: Constipation Last Admin: 02/03/18 08:45 Dose: 10 mg Budesonide (Pulmicort) 1 mg INHALATION RT-BID [facility] Last Admin: 02/16/18 08:11 Dose: 1 mg Chlorhexidine Gluconate (Peridex) 15 ml MUCOUS MEM BID [facility] Last Admin: 02/16/18 08:47 Dose: 15 ml Clopidogrel Bisulfate (Plavix) 75 mg PO DAILY [facility] Last Admin: 02/16/18 08:41 Dose: 75 mg Formoterol Fumarate (Perforomist) 20 mcg INHALATION RT-BID [facility] Last Admin: 02/16/18 08:11 Dose: 20 mcg Haloperidol Lactate (Haldol) 1 mg IVP Q1H PRN PRN Reason: Agitation or Acute Psychosis Last Admin: 02/14/18 21:32 Dose: 1 mg Heparin Sodium (Porcine) (Heparin) 5,000 unit SQ Q8HR [facility] Last Admin: 02/16/18 15:59 Dose: 5,000 unit Hydralazine HCl (Apresoline) 20 mg IVP Q4HR PRN PRN Reason: Blood Pressure - High Last Admin: 02/15/18 02:17 Dose: 20 mg Amiodarone HCl 150 mg/ (Dextrose/Water) 103 mls @ 618 mls/hr IV .Q10M PRN; Protocol PRN Reason: Per protocol Amiodarone HCl 450 mg/ (Dextrose/Water) 259 mls @ 34.53 mls/hr IV .Q7H31M PRN; Protocol PRN Reason: Per Protocol Meropenem 1 gm/ Sodium (Chloride) 100 mls @ 200 mls/hr IVPB Q8HR [facility]; Protocol Last Admin: 02/16/18 15:59 Dose: 200 mls/hr Vancomycin HCl 1,750 mg/ (Sodium Chloride) 500 mls @ 167 mls/hr IVPB Q12H [facility] Last Admin: 02/16/18 10:24 Dose: 167 mls/hr Dextrose/Sodium Chloride (Dextrose 5%-1/2ns Iv Soln) 1,000 mls @ 40 mls/hr IV .Q24H [facility] Insulin Aspart (Novolog) 0 unit SQ Q6HR [facility]; Protocol Last Admin: 02/16/18 15:59 Dose: Not Given Insulin Detemir (Levemir) 10 unit SQ HS [facility] Last Admin: 02/15/18 21:58 Dose: 10 unit Magnesium Hydroxide (Milk Of Magnesia) 2,400 mg PO BID PRN PRN Reason: Constipation Last Admin: 02/12/18 08:10 Dose: 2,400 mg Methylprednisolone Sodium Succinate (Solu-Medrol) 40 mg IV DAILY [facility] Last Admin: 02/16/18 08:47 Dose: 40 mg Metoprolol Tartrate (Lopressor) 100 mg PO BID [facility] Last Admin: 02/16/18 08:41 Dose: 100 mg Miscellaneous Information (Magnesium Per Protocol) 1 each MISCELLANE DAILY PRN ; Protocol PRN Reason: Per Protocol Miscellaneous Information (Phosphorus Per Protocol) 1 each MISCELLANE DAILY PRN ; Protocol PRN Reason: Per Protocol Miscellaneous Information (Potassium Per Protocol) 1 each MISCELLANE DAILY PRN ; Protocol PRN Reason: Per Protocol Ondansetron HCl (Zofran) 4 mg IVP Q6HR PRN PRN Reason: Nausea And Vomiting Pantoprazole Sodium (Protonix) 40 mg PO AC-BRKFST [facility] Last Admin: 02/16/18 08:41 Dose: 40 mg Senna/Docusate Sodium (Senokot-S) 2 each PO HS [facility] Last Admin: 02/15/18 21:57 Dose: 2 each Sodium Chloride (Saline Flush) 10 ml IV BID [facility] Last Admin: 02/16/18 08:47 Dose: 10 ml 02/17/2018 unsuccessful attempts at Dobbhoff tube placement yesterday. Evaluated by speech therapy, recommendations noted including dysphagia 2 diet. Blood sugars controlled. Chest x-ray continues to report improvement. IS 1500 T -max 100.3. Review of systems: CONSTITUTIONAL: fatigue. HEENT: No recent visual problems or hearing problems. Denied any sore throat. CARDIOVASCULAR: No chest pain, no palpitations, no syncope. PULMONARY: No shortness of breath, no cough, no hemoptysis. GASTROINTESTINAL: no nausea, no vomiting, no abdominal pain. Normoactive bowel sounds. NEUROLOGICAL: No headaches, generalized weakness HEMATOLOGICAL: Denies any bleeding or petechiae. GENITOURINARY: Denies any burning micturition, frequency, or urgency. ENDOCRINE: Denies any polyuria or polydipsia. PSYCHIATRIC: Anxiety The rest of the 14 point review of systems is negative Active Medications Acetaminophen (Tylenol Tab) 1,000 mg PO Q6HR PRN PRN Reason: Fever and/ or Pain Last Admin: 02/10/18 20:32 Dose: 1,000 mg Albuterol/Ipratropium (Duoneb 0.5 Mg-3 Mg/3 Ml Soln) 3 ml INHALATION RT-Q2H PRN PRN Reason: Shortness Of Breath Or Wheezing Albuterol/Ipratropium (Duoneb 0.5 Mg-3 Mg/3 Ml Soln) 3 ml INHALATION RT-Q4H [facility] Last Admin: 02/17/18 16:06 Dose: 3 ml Amlodipine Besylate (Norvasc) 5 mg PO BID [facility] Last Admin: 02/17/18 09:49 Dose: 5 mg Aspirin (Aspirin) 325 mg PO DAILY [facility] Last Admin: 02/17/18 09:46 Dose: 325 mg Atorvastatin Calcium (Lipitor) 40 mg PO DAILY [facility] Last Admin: 02/17/18 09:47 Dose: 40 mg Bisacodyl (Dulcolax) 10 mg RECTAL DAILY PRN PRN Reason: Constipation Last Admin: 02/16/18 18:45 Dose: 10 mg Budesonide (Pulmicort) 1 mg INHALATION RT-BID [facility] Last Admin: 02/17/18 07:49 Dose: 1 mg Chlorhexidine Gluconate (Peridex) 15 ml MUCOUS MEM BID [facility] Last Admin: 02/17/18 09:47 Dose: 15 ml Clopidogrel Bisulfate (Plavix) 75 mg PO DAILY [facility] Last Admin: 02/17/18 09:47 Dose: 75 mg Formoterol Fumarate (Perforomist) 20 mcg INHALATION RT-BID [facility] Last Admin: 02/17/18 07:51 Dose: 20 mcg Haloperidol Lactate (Haldol) 1 mg IVP Q1H PRN PRN Reason: Agitation or Acute Psychosis Last Admin: 02/14/18 21:32 Dose: 1 mg Heparin Sodium (Porcine) (Heparin) 5,000 unit SQ Q8HR [facility] Last Admin: 02/17/18 16:33 Dose: 5,000 unit Hydralazine HCl (Apresoline) 20 mg IVP Q4HR PRN PRN Reason: Blood Pressure - High Last Admin: 02/15/18 02:17 Dose: 20 mg Amiodarone HCl 150 mg/ (Dextrose/Water) 103 mls @ 618 mls/hr IV .Q10M PRN; Protocol PRN Reason: Per protocol Amiodarone HCl 450 mg/ (Dextrose/Water) 259 mls @ 34.53 mls/hr IV .Q7H31M PRN; Protocol PRN Reason: Per Protocol Meropenem 1 gm/ Sodium (Chloride) 100 mls @ 200 mls/hr IVPB Q8HR [facility]; Protocol Last Admin: 02/17/18 16:33 Dose: 200 mls/hr Dextrose/Sodium Chloride (Dextrose 5%-1/2ns Iv Soln) 1,000 mls @ 40 mls/hr IV .Q24H [facility] Last Admin: 02/16/18 18:51 Dose: 40 mls/hr Insulin Aspart (Novolog) 0 unit SQ Q6HR [facility]; Protocol Last Admin: 02/17/18 13:32 Dose: 2 unit Insulin Detemir (Levemir) 10 unit SQ HS [facility] Last Admin: 02/16/18 20:17 Dose: 10 unit Magnesium Hydroxide (Milk Of Magnesia) 2,400 mg PO BID PRN PRN Reason: Constipation Last Admin: 02/12/18 08:10 Dose: 2,400 mg Methylprednisolone Sodium Succinate (Solu-Medrol) 40 mg IV DAILY [facility] Last Admin: 02/17/18 09:49 Dose: 40 mg Metoprolol Tartrate (Lopressor) 100 mg PO BID [facility] Last Admin: 02/17/18 09:48 Dose: 100 mg Miscellaneous Information (Magnesium Per Protocol) 1 each MISCELLANE DAILY PRN ; Protocol PRN Reason: Per Protocol Miscellaneous Information (Phosphorus Per Protocol) 1 each MISCELLANE DAILY PRN ; Protocol PRN Reason: Per Protocol Miscellaneous Information (Potassium Per Protocol) 1 each MISCELLANE DAILY PRN ; Protocol PRN Reason: Per Protocol Ondansetron HCl (Zofran) 4 mg IVP Q6HR PRN PRN Reason: Nausea And Vomiting Pantoprazole Sodium (Protonix) 40 mg IVP DAILY [facility] Senna/Docusate Sodium (Senokot-S) 2 each PO HS [facility] Last Admin: 02/16/18 20:17 Dose: 2 each Sodium Chloride (Saline Flush) 10 ml IV BID [facility] Last Admin: 02/17/18 09:52 Dose: 10 ml Objective - Vital Signs Vital signs: Vital Signs Temp 97.6 F 02/17/18 16:00 Pulse 78 02/17/18 16:17 Resp 15 02/17/18 16:00 BP 127/83 02/17/18 16:00 Pulse Ox 98 02/17/18 16:11 Intake & Output 02/17/18 02/17/18 02/18/18 06:59 18:59 06:59 Intake Total 1661 50 Output Total 745 60 Balance 916 -10 Weight 98 kg Intake: IV 650 50 Dextrose 5%-0.45% NaCl 1, 40 000 ml @ 20 mls/hr IV . Q24H [facility] Rx#:[id number] Dextrose 5%-0.45% NaCl 1, 400 40 000 ml @ 40 mls/hr IV . Q24H [facility] Rx#:[id number] Meropenem 1 gm In Sodium 100 Chloride 0.9% 100 ml @ 200 mls/hr IVPB Q8HR [facility] Rx#:[id number] NS 110 10 Intake, IV Titration 500 Amount Vancomycin 1,750 mg In 500 Sodium Chloride 0.9% 500 ml 500 ml @ 167 mls/hr IVPB Q12H [facility] Rx#: [id number] Oral 480 Tube Feeding 31 Output: Urine 745 60 Other: Voiding Method Indwelling Catheter Indwelling Catheter ABP, PAP, CO, CI - Last Documented Arterial Blood Pressure 100/64 Pulmonary Artery Pressure 36/26 Cardiac Output 6.4 Cardiac Index 2.9 - Exam GENERAL: Patient is sitting up in chair, awake alert and oriented 2. No acute distress. HEENT: Extraocular muscles intact. No pallor no icterus. CARDIOVASCULAR: S1 and S2 present. No murmurs, rubs, or gallops. PULMONARY: Diminished bilateral bases. No rhonchi, No crackles or wheezes. ABDOMEN: Soft, nontender, nondistended, normoactive bowel sounds. No palpable organomegaly. EXTREMITIES: No rash. Pulses palpable laterally 2+. +1 generalized edema. NEUROLOGICAL: Awake alert and oriented 2. Hoarse voice ,generalized weakness. Able to move all his extremities. Microbiology 02/14/18 21:00 Sputum Gram Stain - Final 02/14/18 21:00 Sputum Sputum Culture - Final 02/11/18 07:00 Blood Blood Culture - Final No Growth after 144 hours 02/11/18 06:30 Blood Blood Culture - Final No Growth after 144 hours 02/14/18 19:25 Blood Blood Culture - Preliminary No Growth after 48 hours 02/08/18 17:50 Blood Blood Culture Gram Stain - Final 02/08/18 17:50 Blood Blood Culture - Final Anaerobic Gram Positive Cocci 02/08/18 10:50 Bronchial Washings - Left Fungal Culture - Preliminary 02/14/18 14:10 Urine,Catheterized Urine Culture - Final 02/10/18 09:50 Bronchial Washings - Left Gram Stain - Final 02/10/18 09:50 Bronchial Washings - Left Bronchial Washings Culture - Final 02/06/18 12:00 Blood Blood Culture - Final No Growth after 144 hours 02/10/18 09:50 Bronchial Washings - Left Acid Fast Bacilli Smear - Final 02/10/18 09:50 Bronchial Washings - Left Acid Fast Bacilli Culture - Preliminary 02/08/18 10:50 Bronchial Washings - Left Gram Stain - Final 02/08/18 10:50 Bronchial Washings - Left Bronchial Washings Culture - Final 02/10/18 09:50 Bronchial Washings - Left Fungal Culture - Preliminary 02/08/18 17:50 Blood Blood Culture - Final 02/08/18 22:45 Urine,Catheterized Urine Culture - Final 02/06/18 22:05 Sputum Gram Stain - Final 02/06/18 22:05 Sputum Sputum Culture - Final Beta Hemolytic Strep Group C 02/08/18 10:50 Bronchial Washings - Left Acid Fast Bacilli Smear - Final 02/08/18 10:50 Bronchial Washings - Left Acid Fast Bacilli Culture - Preliminary 02/07/18 19:20 Urine,Catheterized Urine Culture - Final 02/06/18 12:00 Urine,Catheterized Urine Culture - Final 02/03/18 01:25 Sputum Gram Stain - Final 02/03/18 01:25 Sputum Sputum Culture - Final 01/29/18 23:00 Urine,Clean Catch Urine Culture - Final Klebsiella pneumoniae 01/29/18 19:41 Nasal Swab Nasal Screen MRSA/MSSA - Final - Labs CBC & Chem 7: 02/17/18 05:00 02/17/18 05:00 Labs: Abnormal Lab Results - Last 24 Hours (Table) 02/16/18 02/17/18 02/17/18 Range/Units 21:28 00:10 05:00 WBC 23.1 H (3.8-10.6) k/uL RBC 3.46 L (4.30-5.90) m/uL Hgb 10.9 L (13.0-17.5) gm/dL Hct 33.1 L (39.0-53.0) % Plt Count 678 H (150-450) k/uL Neutrophils # 15.5 H (1.3-7.7) k/uL Lymphocytes # 5.6 H (1.0-4.8) k/uL Monocytes # 1.4 H (0-1.0) k/uL Chloride (98-107) mmol/L BUN (9-20) mg/dL Creatinine (0.66-1.25) mg/dL Glucose (74-99) mg/dL POC Glucose (mg/dL) 157 H 112 H (75-99) mg/dL ALT (21-72) U/L Total Protein (6.3-8.2) g/dL Albumin (3.5-5.0) g/dL 02/17/18 02/17/18 02/17/18 Range/Units 05:00 05:14 12:57 WBC (3.8-10.6) k/uL RBC (4.30-5.90) m/uL Hgb (13.0-17.5) gm/dL Hct (39.0-53.0) % Plt Count (150-450) k/uL Neutrophils # (1.3-7.7) k/uL Lymphocytes # (1.0-4.8) k/uL Monocytes # (0-1.0) k/uL Chloride 115 H (98-107) mmol/L BUN 31 H (9-20) mg/dL Creatinine 0.61 L (0.66-1.25) mg/dL Glucose 114 H (74-99) mg/dL POC Glucose (mg/dL) 117 H 155 H (75-99) mg/dL ALT 76 H (21-72) U/L Total Protein 6.0 L (6.3-8.2) g/dL Albumin 3.0 L (3.5-5.0) g/dL 02/17/18 Range/Units 17:28 WBC (3.8-10.6) k/uL RBC (4.30-5.90) m/uL Hgb (13.0-17.5) gm/dL Hct (39.0-53.0) % Plt Count (150-450) k/uL Neutrophils # (1.3-7.7) k/uL Lymphocytes # (1.0-4.8) k/uL Monocytes # (0-1.0) k/uL Chloride (98-107) mmol/L BUN (9-20) mg/dL Creatinine (0.66-1.25) mg/dL Glucose (74-99) mg/dL POC Glucose (mg/dL) 119 H (75-99) mg/dL ALT (21-72) U/L Total Protein (6.3-8.2) g/dL Albumin (3.5-5.0) g/dL Microbiology - Last 24 Hours (Table) 02/14/18 21:00 Gram Stain - Final Sputum Sputum Culture - Final 02/11/18 07:00 Blood Culture - Final Blood No Growth after 144 hours 02/11/18 06:30 Blood Culture - Final Blood No Growth after 144 hours 02/14/18 19:25 Blood Culture - Preliminary Blood No Growth after 48 hours 02/08/18 17:50 Blood Culture Gram Stain - Final Blood Blood Culture - Final Anaerobic Gram Positive Cocci 02/08/18 10:50 Fungal Culture - Preliminary Bronchial Washings - Left Assessment and Plan Assessment: CAD ,Status post two-vessel coronary artery bypass grafting Acute hypoxic respiratory, status post mechanical ventilation dependent- likely due to ARDS Acute coronary syndrome/non-ST elevated [place] Status post bronchoscopy, mucus plugging left lower lobe pneumonia, ventilator associated Acute critical polyneuropathy and polymyopathy Current smoker with a 26 pack years Hypertension Obesity, BMI 32.4 Generalized anxiety Acute metabolic encephalopathy, delirium improving, multifactorial. Plan: Continue on current medication regime , Protonix ,subcu heparin , monitoring and symptomatic treatment. Strict aspiration precautions .Maintain nebulized bronchodilators, steroids. Antibiotics as per ID. Aggressive pulmonary toileting with incentive spirometer reinforced. Antibiotics as per infectious disease. PT/OT, significant generalized weakness, subacute rehab at discharge. Prognosis guarded. The impression and plan of care has been dictated as directed. : I performed a history and examination of this patient, discussed the same with the dictator. I agree with the dictator's note ,documented as a scribe. Any additional findings or plans will be noted.
[2018-02-17] MEDS: SENNOSIDES-DOCUSATE SODIUM 1 EACH TAB PO SCH (22:24)
[2018-02-17] MEDS: INSULIN DETEMIR 100 UNIT/ML 10 ML VIAL SQ SCH (22:24)
[2018-02-17] MEDS ORDERED: CHLORHEXIDINE GLUCONATE 15 ML CUP MUCOUS MEM ONE (23:30)
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
[2018-02-18] MEDS: IPRATROPIUM-ALBUTEROL 3 ML NEB INHALATION SCH ×6 (00:17→20:37)
[2018-02-18] MEDS: MEROPENEM 1 GM in SODIUM CHLORIDE 0.9% 100 ML IVPB SCH ×3 (00:36→16:07)
[2018-02-18] MEDS: HEPARIN SODIUM,PORCINE 5,000 UNIT/ML 1 ML VIAL SQ SCH ×3 (00:37→16:07)
[2018-02-18 01:03] LABS: Glucose,Whole Blood 128 mg/dL (75-99)
[2018-02-18] MEDS: DEXTROSE 5%-0.45% NACL 1,000 ML IV SCH ×2 (02:04→16:14)
[2018-02-18] MEDS: INSULIN ASPART 100 UNIT/ML 1 ML 10 ML VIAL SQ SCH ×5 (02:04→21:49)
[2018-02-18 05:46] LABS: Basophils # (A) 0.1 k/uL (0-0.2); Basophils % (A) 0 %; Eosinophils # (A) 0.4 k/uL (0-0.7); Eosinophils % (A) 2 %; HCT 33.5 % (39.0-53.0); HGB 10.9 gm/dL (13.0-17.5); Lymphocytes # (A) 6.2 k/uL (1.0-4.8); Lymphocytes % (A) 30 %; MCH 31.4 pg (25.0-35.0); MCHC 32.5 g/dL (31.0-37.0); MCV 96.6 fL (80.0-100.0); Mean Platelet Volume 7.5; Monocytes % (A) 5 %; Neutrophils # (A) 12.7 k/uL (1.3-7.7); Neutrophils % (A) 62 %; Platelet Count 659 k/uL (150-450); RBC 3.46 m/uL (4.30-5.90); RDW 14.2 % (11.5-15.5); WBC 20.6 k/uL (3.8-10.6)
[2018-02-18 06:08] LABS: Glucose,Whole Blood 87 mg/dL (75-99)
[2018-02-18 06:15] LABS: ALT 84 U/L (21-72); AST 28 U/L (17-59); Albumin 3.1 g/dL (3.5-5.0); Alkaline Phosphatase 49 U/L (38-126); Anion Gap 7 mmol/L; Blood Urea Nitrogen 22 mg/dL (9-20); Calcium 9.4 mg/dL (8.4-10.2); Carbon Dioxide 24 mmol/L (22-30); Chloride 111 mmol/L (98-107); Glucose 88 mg/dL (74-99); Potassium 3.7 mmol/L (3.5-5.1); Sodium 142 mmol/L (137-145); Total Bilirubin 0.7 mg/dL (0.2-1.3)
[2018-02-18 06:39] LABS: Howell-Jolly Bodies Present
--- NOTE | 2018-02-18 07:25 | XR ---
EXAMINATION TYPE: XR chest 1V portable DATE OF EXAM: 02/18/2018 Comparison: 02/17/2018 Clinical History: 42-year-old male post op CABG Findings: Median sternotomy wires are present with post-CABG clips in mediastinum. Left PICC tip at the lower S VC level. Heart remains borderline to mildly enlarged. Mild diffuse interstitial prominence is simila r. Similar patchy right basilar opacity with slightly increasing patchy left basilar opacity is now a trace left pleural effusion. Impression: Continued patchy bibasilar atelectasis, increased now on the left with possible trace left effusion n ow.
[2018-02-18] MEDS: FORMOTEROL FUMARATE 20 MCG/2 ML NEBU INHALATION SCH ×2 (08:21→20:37)
[2018-02-18] MEDS: BUDESONIDE 1 MG/2 ML NEBU INHALATION SCH ×2 (08:22→20:37)
[2018-02-18] MEDS: PANTOPRAZOLE 40 MG/10 ML VIAL IVP SCH (08:24)
[2018-02-18] MEDS: CLOPIDOGREL 75 MG TAB PO SCH (08:25)
[2018-02-18] MEDS: ATORVASTATIN 40 MG TAB PO SCH (08:25)
[2018-02-18] MEDS: ASPIRIN 325 MG TAB PO SCH (08:25)
[2018-02-18] MEDS: amLODIPine 5 MG TAB PO SCH ×2 (08:25→20:34)
[2018-02-18] MEDS: methylPREDNISolone SOD SUCCI 40 MG/ML 1 ML VIAL IV SCH (08:25)
[2018-02-18] MEDS: METOPROLOL TARTRATE 50 MG TAB PO SCH ×2 (08:25→20:34)
--- NOTE | 2018-02-18 09:50 | P.PN ---
Subjective Progress Note Date: 02/18/18 Principal diagnosis: Status post CABG, postoperative day # 18, status post off-pump 2 vessel bypass surgery This 42-year-old male patient is postop day #9 following his 2 vessel bypass surgery, off pump. Postop, the patient has been still intubated on mechanical ventilator due to complications of ARDS. On today's evaluation, I find this patient sedated with Diprivan and currently is on 50 mics of Diprivan for sedation. He is also paralyzed with Nimbex. He is calm and comfortable and synchronous with the mechanical ventilator. Earlier this morning he was an assist-control mode of ventilation with a tidal volume of 450, FiO2 of 50% with a PEEP of 13 and a respiratory rate of 34. He was on a I:E ratio of 1.2-1 and his inspiratory time was at 1.0 seconds. He had a blood gases earlier this morning that showed a pH of 7.42 with a pCO2 of 39 and pO2 of 77 and this was done earlier this morning and FiO2 of 50%. His chest x-ray showed a left lower lobe consolidation and ET tube was in a good location with diffuse groundglass changes throughout the lung hahn bilaterally consistent with ARDS. On examination, he had bilateral rhonchi and some limited expiratory wheeze. He underwent a bronchoscopy yesterday and the bronchioloalveolar lavage from left lower lobe is still pending for now and there is no microbial growth. However, there was copious amount of rest or secretions based on the operative report and the patient is running a low-grade fever with a T-max of 11.4. Based on all this, I left lower lobe pneumonia was suspected and I started this patient on IV meropenem. IV Zosyn on consult. Despite all this, he is hemodynamically stable. He is in a sinus rhythm. Sternum is stable clean and intact. No chest tubes are in place and all of the chest tubes have been removed. The neck fluid balance is 375 mL negative over the past 24 hours. He is on no pressors. He is tolerating his tube feedings which is in the form of vital at 30 mL an hour. Is producing adequate urine output. No other significant events overnight. His white cell count has been persistently elevated and remains elevated at 32.3. Hemoglobin stable at 12.1. On today's evaluation of 02/10/2018, the patient is postop day #10. The patient remains intubated on a mechanical ventilator. The patient is sedated and paralyzed. We are still having difficulties with oxygenation nontender the patient had developed post surgical ARDS and subsequently there is an indication of a left lower lobe pneumonia. The patient had a follow-up chest x- ray today that showed worsening in the consolidation of the left lower lobe. Earlier this morning, he was assist-control mode of ventilation at a PEEP of 14 , FiO2 of 80%, respiratory rate of 26 and tidal volume of 450. The morning. The peak air pressures around 33. His blood gases from today showed a pH of 7.31 with a pCO2 of 55 and pO2 of 86. Chest x-ray shows a dense consolidation and some volume loss in the left lower lobe. Based on this, I performed a bronchoscopy on this patient. Copious amount of purulent respiratory secretions was suctioned out from the left lower lobe and the amount was estimated to be around 30 mL of purulent material. I also performed segmental bronchial washings of the left lower lobe. The cultures will be sent. I started covering this patient with IV antibiotics and I put him on IV Merrem. This morning, he is afebrile however overnight he was spiking temperature of 100.0 with a T-max of 101.3. His white cell count is up to 34,000. Platelet counts are within normal limits. Hemodynamically stable on no pressors. Tolerating tube feeds. As mentioned, all of the chest tubes have been removed. On 02/11/2018 the patient is postop day #11. I performed a bronchoscopy on this patient yesterday and copious amount of purulent respiratory secretions were suctioned out from the patient's left lower lobe. Limited cultures indicating gram-positive cocci. There is also gram-positive cocci in the blood. We suspected the patient had a left lower lobe pneumonia with secondary septicemia. The patient is currently on Merrem and dose of vancomycin was given overnight. Overall oxidation improved following the bronchoscopy. This morning, the patient is on a tidal volume of 450, rate of 26, FiO2 of 40% to 14. Peak airway pressures around 31 with metastatic impression from 20. Blood gases from this morning showed a pH of 7.4 with a pCO2 of 42 and pO2 of 11. Chest x-ray shows improvement in the expression of the left lower lobe. Based on all this, I dropped down the PEEP to 12. Hemodynamically stable. He is in a normal sinus rhythm. Is producing adequate amount of urine output. White cell count remains elevated at 50.7 although somewhat improved compared to yesterday. Renal function is stable. The patient is currently afebrile. He is tolerating his tube feeds. Having regular bowel movements. His last temperature spike of 11.4 was from yesterday evening. No other significant events overnight. He is quite sedated on Diprivan at 50 mics. He was given a sedation holiday yesterday and he arouse and he was slightly agitated but cannot orotracheal tube and based on that he was placed back on sedation. On 02/12/2018 patient is postop day #12. The patient is doing well. The patient is sedated with Diprivan this morning however I'm in the process of taking him off the sedation and switching him to Precedex for sedation. The patient is still on mechanical ventilator. This morning's an assist-control at the rate of 26 right-sided volume of 450 and an FiO2 of 40% and a PEEP of 10. I the peak and static air pressures were not elevated and there were steadily declining. The patient's blood gas from this morning showed a pH of 7.43 with a pCO2 of 37 and pO2 of 98. Based on that, I dropped the PEEP down to 8 and then down to 5 cm of water and the patient was able to tolerate drop in the PEEP that was done over 6 hours and the saturation remains above 90%. I am at this point weaning the patient off the Diprivan and using Precedex for sedation. The patient is gradually arousing. Around half an hour ago, is opening his eyes and is following simple commands. Chest x-ray from today shows adequate expansion of both lungs and some limited infiltration seen in the left lung base. No new cultures and the previous coronary strep infection. The patient remains on a combination of IV Merrem and vancomycin. He is afebrile. On IV Solu-Medrol. He is tolerating his tube feeds via Dobbhoff. White cell count is gradually improving is down to 25. Hemoglobin stable at 9.4. Renal function is stable. No other significant events overnight. The neck fluid balance is +250 mL over the past 24 hours. On 02/13/2018 the patient is postop day #13. There has been steady improvement in his overall vascular status. Yesterday without too point with dropped the patient's PEEP down to 5 and FiO2 was kept at 40% with a tidal volume of 450 and the respiratory rate of 22. The patient was able to tolerate his vent setting without any major difficulties. He was given a sedation holiday and he got to the point where he was wide awake and comfortable and following commands and answering questions. Nevertheless he was profoundly weak and had a weak cough. I was not comfortable and extubating this patient even though his weaning parameters were good. However, his blood gases while being on a pressure support of 5 and a PEEP of 5 showed a component of respiratory alkalosis with a pH of 7.52 and a pCO2 of 30 and pO2 of 60 and the patient was becoming more tachypneic. Based on this, he was kept on sedation overnight and we're the process of repeating the weaning trial again this morning. On today' s chest x-ray, the patient has developed some limited bilateral lower lobe pulmonary infiltrates/atelectasis. Nevertheless, he does not have any significant respiratory secretions. He is on a combination of Merrem and vancomycin. The patient is hemodynamically stable. The patient is afebrile. White cell count is at 29.8. Morning blood gases showed a pH of 7.44 with a pCO2 of 35 and pO2 of 89. He is tolerating his enteral feeding for nutritional support. Developed a bowel movements. Surgical wound sites are dry clean and intact chest tubes have been removed. Hemoglobin stable. No other significant events overnight. I'm in the process of weaning the prevent and keeping the patient on low-dose Precedex. We will recheck his weaning parameters and assess his readiness to wean. Patient seen today 02/14/2018 in follow-up in the intensive care unit. This is postoperative day #14. He is currently resting comfortably in bed. He is awake and alert in no acute distress. He has some ongoing hoarseness. He is currently maintaining O2 saturations in the 90s on 5 L/m per nasal cannula. He' s been afebrile. He is currently in sinus rhythm. His chest x-ray showing improved aeration in both lungs. Follow-up blood cultures reveal no growth after 72 hours. White count 41.2. Hemoglobin 11.9. Creatinine 0.71. He remains on DuoNeb inhalations, Pulmicort and Perforomist inhalations. He is currently on vancomycin and meropenem. We decreased his IV Solu-Medrol. He was given additional Lasix this morning. Remains in a negative balance. On 02/15/2018 I'm seeing this patient in intensive care unit for a follow-up. The patient is postop day #15. The patient is currently on room air. Sternum stable clean and intact. Overnight he had some delirium and for that reason he was given IV Haldol. Currently he is more oriented however on and off I feel it is still foggy. There is obvious motor weakness in all 4 extremities and he is gradually improving. Unable to move him up on a chair today. No fever. No chills. Chest x-ray still showing pulmonary vessel congestion and patient will be given another dose of Lasix and the patient has been negative fluid balance over the past 24-48 hours. The patient is also on IV Solu-Medrol 40 mg every 24 hours this was tapered today. He is receiving Levemir insulin 10 units daily at bedtime. The patient is also on a combination of vancomycin and meropenem. Repeat cultures were sent. Infectious diseases managing the patient 's antibiotic coverage. Overall his antibiotic coverage can be simplified for now. Despite his fogginess and cloudiness in his mentation, the patient is able to move all 4 extremities. He is able to say a few sentences however he speaks only short sentences. He is obviously hoarse related to prolonged intubation. On 02/16/2018, patient remains in the intensive care unit, his postoperative day #16. Currently on room air, seems to be comfortable, in no form of respiratory distress, however he feels generally weak, and barely able to move his upper extremities against gravity. Patient remains on multiple medications including diuretics, antibiotics with vancomycin and Merrem, patient continues to have an infiltrate involving the left lower lobe. No active pulmonary symptoms at present. He denies any shortness of breath or chest pain. Continues to have leukocytosis with WBC count of 24.2 hemoglobin is 12 electrolytes and renal profile are normal. Chest x-ray this morning showed slight interstitial changes bilaterally, possibly interstitial edema, and there is significant improvement of aeration of lung bases especially at the left lung base. On 02/17/2018, patient remains in the intensive care unit, his postoperative day #17. Patient remains on room air, doing well, a Dobbhoff tube was attempted to be placed yesterday by the cardiac surgeon, however multiple attempts failed. Patient is now on feedings orally as per the recommendation of the speech pathologist. He remains on multiple medications including antibiotics, diuretics, and his chest x-ray is showing significant improvement with minimal atelectasis at the bases. Patient was seen by Dr. Del Valle yesterday , and plans are in progress to send him to a rehab. Continues to have leukocytosis with WBC count of 23.2 but improving hemoglobin is 10.9 basic metabolic profile and renal profile are normal. Chest x-ray was reviewed and showing steady improvement. Reevaluated today on 02/18/2018, patient remains in the ICU, he is postoperative day #18. Remains on room air, basically asymptomatic, no cough no wheezing no shortness of breath. His initial swallowing remains a bit of an issue, and he is being followed by speech therapy. Recommendations are being followed. Patient remains on antibiotics, diuretics, chest x-ray this morning showed hazy opacity in the left lower lobe with a small tiny left pleural effusion. However the patient is asymptomatic. Continues to have leukocytosis WBC count of 20.6, hemoglobin is 10.9. Basic metabolic profile is normal, renal profile is normal. Objective - Vital Signs Vital signs: Vital Signs Temp 98.2 F 02/18/18 05:00 Pulse 88 02/18/18 08:39 Resp 18 02/18/18 07:00 BP 133/86 02/18/18 07:00 Pulse Ox 92 L 02/18/18 07:00 Intake & Output 02/17/18 02/18/18 02/18/18 18:59 06:59 18:59 Intake Total 784 860 50 Output Total 980 855 80 Balance -196 5 -30 Weight 91 kg Intake: IV 350 620 50 Dextrose 5%-0.45% NaCl 1, 280 440 40 000 ml @ 40 mls/hr IV . Q24H [facility] Rx#:[id number] Meropenem 1 gm In Sodium 100 Chloride 0.9% 100 ml @ 200 mls/hr IVPB Q8HR [facility] Rx#:[id number] NS 70 80 10 Intake, IV Titration 434 Amount Meropenem 1 gm In Sodium 100 Chloride 0.9% 100 ml @ 200 mls/hr IVPB Q8HR [facility] Rx#:[id number] Vancomycin 1,750 mg In 334 Sodium Chloride 0.9% 500 ml 500 ml @ 167 mls/hr IVPB Q12H [facility] Rx#: [id number] Oral 240 Output: Urine 980 855 80 Other: Voiding Method Indwelling Catheter Indwelling Catheter ABP, PAP, CO, CI - Last Documented Arterial Blood Pressure 100/64 Pulmonary Artery Pressure 36/26 Cardiac Output 6.4 Cardiac Index 2.9 - Exam Physical Exam: Revealed a 42-year-old white male in no distress. On room air. Head: Atraumatic, normocephalic. HEENT:[Neck is supple.] [No neck masses.] [No thyromegaly.] [No JVD.] PERRLA, EOMI, no icterus. Chest: [Clear throughout, no crackles, no rhonchi, no wheezes.] Cardiac Exam: [Normal S1 and S2, no S3 gallop, no murmur.] Abdomen: [Soft, nontender, no megaly, no rebound, no guarding, normal bowel sounds.] Extremities: [No clubbing, no edema, no cyanosis.] Neurological Exam: [No focal neurologic deficit.] However the patient is noted to be generally weak, all 4 extremities are noted to be 3/5 in strength. Possibly a bit stronger compared to yesterday, patient can keep his upper extremities high longer against gravity today. Psychiatric: Normal mood affect and mental status examination. Skin: No rashes. - Labs CBC & Chem 7: 02/18/18 05:10 02/18/18 05:10 Labs: Abnormal Lab Results - Last 24 Hours (Table) 02/17/18 02/17/18 02/18/18 Range/Units 12:57 17:28 00:43 WBC (3.8-10.6) k/uL RBC (4.30-5.90) m/uL Hgb (13.0-17.5) gm/dL Hct (39.0-53.0) % Plt Count (150-450) k/uL Neutrophils # (1.3-7.7) k/uL Lymphocytes # (1.0-4.8) k/uL Chloride (98-107) mmol/L BUN (9-20) mg/dL Creatinine (0.66-1.25) mg/dL POC Glucose (mg/dL) 155 H 119 H 128 H (75-99) mg/dL ALT (21-72) U/L Total Protein (6.3-8.2) g/dL Albumin (3.5-5.0) g/dL 02/18/18 02/18/18 Range/Units 05:10 05:10 WBC 20.6 H (3.8-10.6) k/uL RBC 3.46 L (4.30-5.90) m/uL Hgb 10.9 L (13.0-17.5) gm/dL Hct 33.5 L (39.0-53.0) % Plt Count 659 H (150-450) k/uL Neutrophils # 12.7 H (1.3-7.7) k/uL Lymphocytes # 6.2 H (1.0-4.8) k/uL Chloride 111 H (98-107) mmol/L BUN 22 H (9-20) mg/dL Creatinine 0.56 L (0.66-1.25) mg/dL POC Glucose (mg/dL) (75-99) mg/dL ALT 84 H (21-72) U/L Total Protein 6.0 L (6.3-8.2) g/dL Albumin 3.1 L (3.5-5.0) g/dL Microbiology - Last 24 Hours (Table) 02/14/18 19:25 Blood Culture - Preliminary Blood No Growth after 72 hours 02/14/18 21:00 Gram Stain - Final Sputum Sputum Culture - Final 02/11/18 07:00 Blood Culture - Final Blood No Growth after 144 hours 02/11/18 06:30 Blood Culture - Final Blood No Growth after 144 hours Assessment and Plan Assessment: Impression: 1 status post CABG postoperative day # 18 2 postoperative respiratory failure/hypoxic in nature secondary to ARDS. 3 acute ventilator associated left lower lobe pneumonia, remains on Zosyn and vancomycin. 4 acute critical illness polyneuropathy and polymyopathy. 5 intermittent episodes of delirium and metabolic encephalopathy improving. 6 previous history of splenectomy, and underlying COPD. Recommendation: Continue present supportive care measures, continue antibiotics , incentive spirometry, bronchodilators, physical therapy, patient is being evaluated for possible rehab referral. Continues to have issue with swallowing , and that being addressed by speech pathology. We'll continue to follow. Time with Patient: Less than 30
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
[2018-02-18 11:51] LABS: Glucose,Whole Blood 170 mg/dL (75-99)
[2018-02-18 16:30] LABS: Glucose,Whole Blood 138 mg/dL (75-99)
--- NOTE | 2018-02-18 20:17 | PN ---
PROGRESS NOTE DATE OF SERVICE: 02/18/2018 This 42-year-old gentleman who was admitted after CAD, CABG is being closely monitored. No chest pain. No palpitations, the patient has pneumonia and multiple other medical issues also. The patient is able to sit up and tolerate the PT/OT at this time. No chest pain. No palpitations. No fever. EXAM: Alert and oriented times three. Pulse 99, blood pressure 124/80, respiration 20, temperature is 98.4, pulse ox 98% on room air. HEENT: Conjunctivae normal. Neck: No jugular venous distention. Cardiovascular: S1, S2. Respirations: Breath sounds diminished in the bases. A few scattered rhonchi and crackles. Abdomen is soft , nontender. Legs: No edema. No swelling. Central nervous system: No focal deficits. LABORATORY DATA: WBC 20.7, hemoglobin 10.9, sodium 142, potassium 3.7. ASSESSMENT: 1. Coronary artery disease status post coronary artery bypass grafting. 2. Acute hypoxic respiratory failure status post mechanical ventilation and ARDS. 3. Acute non-ST segment elevation myocardial infarction. 4. Status post bronchoscopy and mucous plugging. 5. Left lower pneumonia possibly gram-negative associated. 6. Acute critical polyneuropathy and polymyopathy. 7. Nicotine dependence. 8. Hypertension. 9. Obesity with body mass index 30.4. 10.Generalized anxiety. 11.Change in mental status, acute metabolic encephalopathy and delirium, multifactorial. RECOMMENDATIONS AND DISCUSSION: Recommend to continue current medications, management and symptomatic treatment. Otherwise, at this time, we will monitor the patient closely. I would recommend PT/OT evaluation. Patient with a tapering dose of steroids and continue with the rest of the IV antibiotics and continue to monitor. Further recommendations to follow. MMODL / IJN: [id number] / MITALI
[2018-02-18] MEDS: SENNOSIDES-DOCUSATE SODIUM 1 EACH TAB PO SCH (20:34)
[2018-02-18 20:38] LABS: Glucose,Whole Blood 149 mg/dL (75-99)
[2018-02-18] MEDS: INSULIN DETEMIR 100 UNIT/ML 10 ML VIAL SQ SCH (21:49)
[2018-02-19] MEDS: MEROPENEM 1 GM in SODIUM CHLORIDE 0.9% 100 ML IVPB SCH ×4 (00:40→23:26)
[2018-02-19] MEDS: HEPARIN SODIUM,PORCINE 5,000 UNIT/ML 1 ML VIAL SQ SCH ×4 (00:40→23:27)
[2018-02-19] MEDS: IPRATROPIUM-ALBUTEROL 3 ML NEB INHALATION SCH ×6 (03:06→19:54)
[2018-02-19] MEDS: INSULIN ASPART 100 UNIT/ML 1 ML 10 ML VIAL SQ SCH ×5 (03:52→21:19)
[2018-02-19 06:39] LABS: Glucose,Whole Blood 90 mg/dL (75-99)
[2018-02-19 06:53] LABS: Basophils # (A) 0.1 k/uL (0-0.2); Basophils % (A) 1 %; Eosinophils # (A) 0.5 k/uL (0-0.7); Eosinophils % (A) 2 %; HCT 35.7 % (39.0-53.0); HGB 11.3 gm/dL (13.0-17.5); Hypochromasia Slight; Lymphocytes # (A) 7.7 k/uL (1.0-4.8); Lymphocytes % (A) 35 %; MCH 31.2 pg (25.0-35.0); MCHC 31.7 g/dL (31.0-37.0); MCV 98.6 fL (80.0-100.0); Mean Platelet Volume 7.4; Monocytes # (A) 0.9 k/uL (0-1.0); Monocytes % (A) 4 %; Neutrophils # (A) 12.2 k/uL (1.3-7.7); Neutrophils % (A) 56 %; Platelet Count 745 k/uL (150-450); RBC 3.61 m/uL (4.30-5.90); RDW 13.9 % (11.5-15.5); WBC 21.7 k/uL (3.8-10.6)
[2018-02-19] MEDS: FORMOTEROL FUMARATE 20 MCG/2 ML NEBU INHALATION SCH ×2 (06:56→19:55)
[2018-02-19] MEDS: BUDESONIDE 1 MG/2 ML NEBU INHALATION SCH ×2 (06:56→19:54)
[2018-02-19 07:03] LABS: ALT 73 U/L (21-72); AST 23 U/L (17-59); Albumin 3.3 g/dL (3.5-5.0); Alkaline Phosphatase 49 U/L (38-126); Anion Gap 10 mmol/L; Blood Urea Nitrogen 22 mg/dL (9-20); Calcium 9.6 mg/dL (8.4-10.2); Carbon Dioxide 22 mmol/L (22-30); Chloride 108 mmol/L (98-107); Glucose 81 mg/dL (74-99); Potassium 4.3 mmol/L (3.5-5.1); Sodium 140 mmol/L (137-145); Total Bilirubin 0.9 mg/dL (0.2-1.3); Total Protein 6.3 g/dL (6.3-8.2)
--- NOTE | 2018-02-19 07:27 | XR ---
EXAMINATION TYPE: XR chest 1V portable DATE OF EXAM: 02/19/2018 COMPARISON: 02/18/2018 HISTORY: Chest pain TECHNIQUE: Single frontal view of the chest is obtained. FINDINGS: Resolution of previously noted basilar infiltrates and small left-sided effusion. The cardiac silhouette size is within normal limits. The osseous structures are intact. IMPRESSION: 1. Resolution of previously noted basilar infiltrates and small left-sided effusion.
[2018-02-19] MEDS: PANTOPRAZOLE 40 MG/10 ML VIAL IVP SCH (08:37)
[2018-02-19] MEDS: methylPREDNISolone SOD SUCCI 40 MG/ML 1 ML VIAL IV SCH (08:37)
[2018-02-19] MEDS: METOPROLOL TARTRATE 50 MG TAB PO SCH ×2 (08:38→21:22)
[2018-02-19] MEDS: amLODIPine 5 MG TAB PO SCH ×2 (08:38→21:22)
[2018-02-19] MEDS: ASPIRIN 325 MG TAB PO SCH (08:38)
[2018-02-19] MEDS: CLOPIDOGREL 75 MG TAB PO SCH (08:38)
[2018-02-19] MEDS: ATORVASTATIN 40 MG TAB PO SCH (08:38)
[2018-02-19] MEDS: TAMSULOSIN 0.4 MG CAP.ER.24H PO SCH (08:45)
[2018-02-19 09:23] LABS: Poikilocytosis (M) Present
[2018-02-19 11:17] VITALS: BMI 29.4
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
[2018-02-19 12:08] LABS: Glucose,Whole Blood 128 mg/dL (75-99)
--- NOTE | 2018-02-19 13:02 | P.PN ---
Subjective Progress Note Date: 02/19/18 Principal diagnosis: This 42-year-old male patient is postop day #9 following his 2 vessel bypass surgery, off pump. Postop, the patient has been still intubated on mechanical ventilator due to complications of ARDS. On today's evaluation, I find this patient sedated with Diprivan and currently is on 50 mics of Diprivan for sedation. He is also paralyzed with Nimbex. He is calm and comfortable and synchronous with the mechanical ventilator. Earlier this morning he was an assist-control mode of ventilation with a tidal volume of 450, FiO2 of 50% with a PEEP of 13 and a respiratory rate of 34. He was on a I:E ratio of 1.2-1 and his inspiratory time was at 1.0 seconds. He had a blood gases earlier this morning that showed a pH of 7.42 with a pCO2 of 39 and pO2 of 77 and this was done earlier this morning and FiO2 of 50%. His chest x-ray showed a left lower lobe consolidation and ET tube was in a good location with diffuse groundglass changes throughout the lung hahn bilaterally consistent with ARDS. On examination, he had bilateral rhonchi and some limited expiratory wheeze. He underwent a bronchoscopy yesterday and the bronchioloalveolar lavage from left lower lobe is still pending for now and there is no microbial growth. However, there was copious amount of rest or secretions based on the operative report and the patient is running a low-grade fever with a T-max of 11.4. Based on all this, I left lower lobe pneumonia was suspected and I started this patient on IV meropenem. IV Zosyn on consult. Despite all this, he is hemodynamically stable. He is in a sinus rhythm. Sternum is stable clean and intact. No chest tubes are in place and all of the chest tubes have been removed. The neck fluid balance is 375 mL negative over the past 24 hours. He is on no pressors. He is tolerating his tube feedings which is in the form of vital at 30 mL an hour. Is producing adequate urine output. No other significant events overnight. His white cell count has been persistently elevated and remains elevated at 32.3. Hemoglobin stable at 12.1. On today's evaluation of 02/10/2018, the patient is postop day #10. The patient remains intubated on a mechanical ventilator. The patient is sedated and paralyzed. We are still having difficulties with oxygenation nontender the patient had developed post surgical ARDS and subsequently there is an indication of a left lower lobe pneumonia. The patient had a follow-up chest x- ray today that showed worsening in the consolidation of the left lower lobe. Earlier this morning, he was assist-control mode of ventilation at a PEEP of 14 , FiO2 of 80%, respiratory rate of 26 and tidal volume of 450. The morning. The peak air pressures around 33. His blood gases from today showed a pH of 7.31 with a pCO2 of 55 and pO2 of 86. Chest x-ray shows a dense consolidation and some volume loss in the left lower lobe. Based on this, I performed a bronchoscopy on this patient. Copious amount of purulent respiratory secretions was suctioned out from the left lower lobe and the amount was estimated to be around 30 mL of purulent material. I also performed segmental bronchial washings of the left lower lobe. The cultures will be sent. I started covering this patient with IV antibiotics and I put him on IV Merrem. This morning, he is afebrile however overnight he was spiking temperature of 100.0 with a T-max of 101.3. His white cell count is up to 34,000. Platelet counts are within normal limits. Hemodynamically stable on no pressors. Tolerating tube feeds. As mentioned, all of the chest tubes have been removed. On 02/11/2018 the patient is postop day #11. I performed a bronchoscopy on this patient yesterday and copious amount of purulent respiratory secretions were suctioned out from the patient's left lower lobe. Limited cultures indicating gram-positive cocci. There is also gram-positive cocci in the blood. We suspected the patient had a left lower lobe pneumonia with secondary septicemia. The patient is currently on Merrem and dose of vancomycin was given overnight. Overall oxidation improved following the bronchoscopy. This morning, the patient is on a tidal volume of 450, rate of 26, FiO2 of 40% to 14. Peak airway pressures around 31 with metastatic impression from 20. Blood gases from this morning showed a pH of 7.4 with a pCO2 of 42 and pO2 of 11. Chest x-ray shows improvement in the expression of the left lower lobe. Based on all this, I dropped down the PEEP to 12. Hemodynamically stable. He is in a normal sinus rhythm. Is producing adequate amount of urine output. White cell count remains elevated at 50.7 although somewhat improved compared to yesterday. Renal function is stable. The patient is currently afebrile. He is tolerating his tube feeds. Having regular bowel movements. His last temperature spike of 11.4 was from yesterday evening. No other significant events overnight. He is quite sedated on Diprivan at 50 mics. He was given a sedation holiday yesterday and he arouse and he was slightly agitated but cannot orotracheal tube and based on that he was placed back on sedation. On 02/12/2018 patient is postop day #12. The patient is doing well. The patient is sedated with Diprivan this morning however I'm in the process of taking him off the sedation and switching him to Precedex for sedation. The patient is still on mechanical ventilator. This morning's an assist-control at the rate of 26 right-sided volume of 450 and an FiO2 of 40% and a PEEP of 10. I the peak and static air pressures were not elevated and there were steadily declining. The patient's blood gas from this morning showed a pH of 7.43 with a pCO2 of 37 and pO2 of 98. Based on that, I dropped the PEEP down to 8 and then down to 5 cm of water and the patient was able to tolerate drop in the PEEP that was done over 6 hours and the saturation remains above 90%. I am at this point weaning the patient off the Diprivan and using Precedex for sedation. The patient is gradually arousing. Around half an hour ago, is opening his eyes and is following simple commands. Chest x-ray from today shows adequate expansion of both lungs and some limited infiltration seen in the left lung base. No new cultures and the previous coronary strep infection. The patient remains on a combination of IV Merrem and vancomycin. He is afebrile. On IV Solu-Medrol. He is tolerating his tube feeds via Dobbhoff. White cell count is gradually improving is down to 25. Hemoglobin stable at 9.4. Renal function is stable. No other significant events overnight. The neck fluid balance is +250 mL over the past 24 hours. On 02/13/2018 the patient is postop day #13. There has been steady improvement in his overall vascular status. Yesterday without too point with dropped the patient's PEEP down to 5 and FiO2 was kept at 40% with a tidal volume of 450 and the respiratory rate of 22. The patient was able to tolerate his vent setting without any major difficulties. He was given a sedation holiday and he got to the point where he was wide awake and comfortable and following commands and answering questions. Nevertheless he was profoundly weak and had a weak cough. I was not comfortable and extubating this patient even though his weaning parameters were good. However, his blood gases while being on a pressure support of 5 and a PEEP of 5 showed a component of respiratory alkalosis with a pH of 7.52 and a pCO2 of 30 and pO2 of 60 and the patient was becoming more tachypneic. Based on this, he was kept on sedation overnight and we're the process of repeating the weaning trial again this morning. On today' s chest x-ray, the patient has developed some limited bilateral lower lobe pulmonary infiltrates/atelectasis. Nevertheless, he does not have any significant respiratory secretions. He is on a combination of Merrem and vancomycin. The patient is hemodynamically stable. The patient is afebrile. White cell count is at 29.8. Morning blood gases showed a pH of 7.44 with a pCO2 of 35 and pO2 of 89. He is tolerating his enteral feeding for nutritional support. Developed a bowel movements. Surgical wound sites are dry clean and intact chest tubes have been removed. Hemoglobin stable. No other significant events overnight. I'm in the process of weaning the prevent and keeping the patient on low-dose Precedex. We will recheck his weaning parameters and assess his readiness to wean. Patient seen today 02/14/2018 in follow-up in the intensive care unit. This is postoperative day #14. He is currently resting comfortably in bed. He is awake and alert in no acute distress. He has some ongoing hoarseness. He is currently maintaining O2 saturations in the 90s on 5 L/m per nasal cannula. He' s been afebrile. He is currently in sinus rhythm. His chest x-ray showing improved aeration in both lungs. Follow-up blood cultures reveal no growth after 72 hours. White count 41.2. Hemoglobin 11.9. Creatinine 0.71. He remains on DuoNeb inhalations, Pulmicort and Perforomist inhalations. He is currently on vancomycin and meropenem. We decreased his IV Solu-Medrol. He was given additional Lasix this morning. Remains in a negative balance. On 02/15/2018 I'm seeing this patient in intensive care unit for a follow-up. The patient is postop day #15. The patient is currently on room air. Sternum stable clean and intact. Overnight he had some delirium and for that reason he was given IV Haldol. Currently he is more oriented however on and off I feel it is still foggy. There is obvious motor weakness in all 4 extremities and he is gradually improving. Unable to move him up on a chair today. No fever. No chills. Chest x-ray still showing pulmonary vessel congestion and patient will be given another dose of Lasix and the patient has been negative fluid balance over the past 24-48 hours. The patient is also on IV Solu-Medrol 40 mg every 24 hours this was tapered today. He is receiving Levemir insulin 10 units daily at bedtime. The patient is also on a combination of vancomycin and meropenem. Repeat cultures were sent. Infectious diseases managing the patient 's antibiotic coverage. Overall his antibiotic coverage can be simplified for now. Despite his fogginess and cloudiness in his mentation, the patient is able to move all 4 extremities. He is able to say a few sentences however he speaks only short sentences. He is obviously hoarse related to prolonged intubation. On 02/16/2018, patient remains in the intensive care unit, his postoperative day #16. Currently on room air, seems to be comfortable, in no form of respiratory distress, however he feels generally weak, and barely able to move his upper extremities against gravity. Patient remains on multiple medications including diuretics, antibiotics with vancomycin and Merrem, patient continues to have an infiltrate involving the left lower lobe. No active pulmonary symptoms at present. He denies any shortness of breath or chest pain. Continues to have leukocytosis with WBC count of 24.2 hemoglobin is 12 electrolytes and renal profile are normal. Chest x-ray this morning showed slight interstitial changes bilaterally, possibly interstitial edema, and there is significant improvement of aeration of lung bases especially at the left lung base. On 02/17/2018, patient remains in the intensive care unit, his postoperative day #17. Patient remains on room air, doing well, a Dobbhoff tube was attempted to be placed yesterday by the cardiac surgeon, however multiple attempts failed. Patient is now on feedings orally as per the recommendation of the speech pathologist. He remains on multiple medications including antibiotics, diuretics, and his chest x-ray is showing significant improvement with minimal atelectasis at the bases. Patient was seen by Dr. Del Valle yesterday , and plans are in progress to send him to a rehab. Continues to have leukocytosis with WBC count of 23.2 but improving hemoglobin is 10.9 basic metabolic profile and renal profile are normal. Chest x-ray was reviewed and showing steady improvement. Reevaluated today on 02/18/2018, patient remains in the ICU, he is postoperative day #18. Remains on room air, basically asymptomatic, no cough no wheezing no shortness of breath. His initial swallowing remains a bit of an issue, and he is being followed by speech therapy. Recommendations are being followed. Patient remains on antibiotics, diuretics, chest x-ray this morning showed hazy opacity in the left lower lobe with a small tiny left pleural effusion. However the patient is asymptomatic. Continues to have leukocytosis WBC count of 20.6, hemoglobin is 10.9. Basic metabolic profile is normal, renal profile is normal. The patient is seen again today 02/19/2018 on the selective care unit. Postoperative day #19. He is currently sitting up in a chair at the bedside. He is awake and alert in no acute distress. He denies any worsening shortness of breath, cough or congestion. He remains hoarse. Today's chest x-ray shows resolution of previously noted by a sellar infiltrates and small left-sided pleural effusion. He is maintaining good O2 saturations in the mid 90s on room air. White count 21.7. Hemoglobin 11.3. Creatinine 0.63. Objective - Vital Signs Vital signs: Vital Signs Temp 96.0 F L 02/19/18 12:00 Pulse 80 02/19/18 12:00 Resp 16 02/19/18 12:00 BP 120/73 02/19/18 12:00 Pulse Ox 95 02/19/18 12:00 Intake & Output 02/18/18 02/19/18 02/19/18 18:59 06:59 18:59 Intake Total 1250 470 430 Output Total 80 600 1000 Balance 1170 -130 -570 Weight 91 kg 93 kg 93 kg Intake: IV 1070 110 330 Dextrose 5%-0.45% NaCl 1, 280 320 000 ml @ 40 mls/hr IV . Q24H NICHOLAS Rx#:[id number] Invasive Line 9 10 10 Meropenem 1 gm In Sodium 720 100 Chloride 0.9% 100 ml @ 200 mls/hr IVPB Q8HR NICHOLAS Rx#:[id number] NS 70 Intake, IV Titration 360 Amount Dextrose 5%-0.45% NaCl 1, 360 000 ml @ 40 mls/hr IV . Q24H NICHOLAS Rx#:[id number] Oral 180 100 Output: Urine 80 600 1000 Other: Voiding Method Indwelling Catheter Indwelling Catheter Indwelling Catheter ABP, PAP, CO, CI - Last Documented Arterial Blood Pressure 100/64 Pulmonary Artery Pressure 36/26 Cardiac Output 6.4 Cardiac Index 2.9 - Exam Awake and alert in no acute distress. Maintaining good O2 saturations in the 90s on room air. Head exam was generally normal. There was no scleral icterus or corneal arcus. Mucous membranes were moist. Neck was supple and without jugular venous distension, thyromegaly, or carotid bruits. Carotids were easily palpable bilaterally. There was no adenopathy. Lungs sounds are clear. Cardiac exam revealed the PMI to be normally situated and sized. The rhythm was regular and no extrasystoles were noted during several minutes of auscultation. The first and second heart sounds were normal and physiologic splitting of the second heart sound was noted. There were no murmurs, rubs, clicks, or gallops. The patient is in sinus tachycardia. Abdominal exam revealed normal bowel sounds. The abdomen was soft, non-tender, and without masses, organomegaly, or appreciable enlargement of the abdominal aorta. Examination of the extremities revealed easily palpable radial, femoral and pedal pulses. There was no cyanosis, clubbing or edema. Examination of the skin revealed no evidence of significant rashes, suspicious appearing nevi or other concerning lesions. Sternum stable clean and intact Neurologically alert and oriented. - Labs CBC & Chem 7: 02/19/18 05:53 02/19/18 05:53 Labs: Abnormal Lab Results - Last 24 Hours (Table) 02/18/18 02/18/18 02/19/18 Range/Units 16:27 20:35 05:53 WBC 21.7 H (3.8-10.6) k/uL RBC 3.61 L (4.30-5.90) m/uL Hgb 11.3 L (13.0-17.5) gm/dL Hct 35.7 L (39.0-53.0) % Plt Count 745 H (150-450) k/uL Neutrophils # 12.2 H (1.3-7.7) k/uL Lymphocytes # 7.7 H (1.0-4.8) k/uL Chloride (98-107) mmol/L BUN (9-20) mg/dL Creatinine (0.66-1.25) mg/dL POC Glucose (mg/dL) 138 H 149 H (75-99) mg/dL ALT (21-72) U/L Albumin (3.5-5.0) g/dL 02/19/18 02/19/18 Range/Units 05:53 12:06 WBC (3.8-10.6) k/uL RBC (4.30-5.90) m/uL Hgb (13.0-17.5) gm/dL Hct (39.0-53.0) % Plt Count (150-450) k/uL Neutrophils # (1.3-7.7) k/uL Lymphocytes # (1.0-4.8) k/uL Chloride 108 H (98-107) mmol/L BUN 22 H (9-20) mg/dL Creatinine 0.63 L (0.66-1.25) mg/dL POC Glucose (mg/dL) 128 H (75-99) mg/dL ALT 73 H (21-72) U/L Albumin 3.3 L (3.5-5.0) g/dL Microbiology - Last 24 Hours (Table) 02/14/18 19:25 Blood Culture - Preliminary Blood No Growth after 96 hours Assessment and Plan Assessment: Impression: #1 Acute non-ST segment elevation myocardial infarction. #2 Coronary artery disease with 100% occluded right coronary artery possibly chronic. There is also in-stent restenosis of the LAD with 95% occlusion. Status post coronary artery bypass grafting, postoperative day #19. #3 postoperative ARDS, an expected outcome, improving and the patient remains intubated on mechanical ventilator. Noted the patient also developed a left lower lobe pneumonia, thought to be related to beta hemolytic strep with a component of bacteremia. The patient had his ARDS complicated by left lower lobe pneumonia which obviously delayed the weaning process. Successfully extubated and currently on room air. #4 left lower lobe pneumonia. Near complete resolution on today's chest x-ray. The patient is afebrile. The patient is hemodynamically stable. The patient is on Merrem. #5 Previous history of coronary artery disease with stent placement to the LAD. #6 Hypertension. #7 Chronic and ongoing tobacco dependence with a component of chronic obstructive pulmonary disease. FEV1 value 50% of predicted. #8 Obesity. #9 Anxiety. Plan: The patient was seen and evaluated by Dr. Jean. Chest x-ray, labs reviewed. He is currently maintaining good O2 saturations in the 90s on room air. Chest x -ray shows improvement. Continue antibiotics. We will continue to follow and make further recommendations based on his clinical status. I, the cosigning physician, performed a history & physical examination of the patient. Lungs sounds with faint crackles in the bilateral posterior bases. Maintaining good O2 saturations in the 90s on room air. I discussed the assessment and plan of care with my nurse practitioner, Faviola Luna. I attest to the above consultation as dictated by her.
[2018-02-19 17:22] LABS: Glucose,Whole Blood 123 mg/dL (75-99)
[2018-02-19] MEDS: DEXTROSE 5%-0.45% NACL 1,000 ML IV SCH (17:36)
[2018-02-19 21:19] LABS: Glucose,Whole Blood 119 mg/dL (75-99)
[2018-02-19] MEDS: SENNOSIDES-DOCUSATE SODIUM 1 EACH TAB PO SCH (21:22)
[2018-02-19] MEDS: INSULIN DETEMIR 100 UNIT/ML 10 ML VIAL SQ SCH (21:22)
--- NOTE | 2018-02-20 00:24 | PN ---
PROGRESS NOTE DATE OF SERVICE: 02/19/2018 This is a 42-year-old gentleman admitted with CAD status post CABG. Also, multiple complex medical issues. The patient has improved significantly. No chest pain. No palpitations. No fever. Most recent chest x-ray done yesterday showed some significant . EXAM: Alert and oriented x3. Pulse is 79, blood pressure 124/74, respiration 18, temperature 98 degrees, pulse ox 98% on room air. HEENT: Conjunctivae normal. Oral mucosa. NECK: No jugular venous distention. No lymph node enlargement. CARDIOVASCULAR: S1, S2. RESPIRATORY: Diminished breath sounds at the bases. Bilateral scattered rhonchi , no crackles. ABDOMEN: Soft, nontender. LEGS: No swelling. NERVOUS SYSTEM: No focal deficits. LABS: At this time shows WBC 21.7, hemoglobin 11.3. ASSESSMENT: 1. CAD status post CABG. 2. Acute hypoxic respiratory failure status post mechanical ventilation, ARDS. 3. Acute non ST-segment elevation myocardial infarction, present on admission. 4. Status post bronchoscopy and mucus plugging. 5. Left lower lobe pneumonia possibly gram-negative or healthcare associated. 6. Acute critical care polyneuropathy and polymyopathy. 7. History of nicotine dependence. 8. Hypertension. 9. Obesity with body mass of . 10.Generalized anxiety. 11.Change in mental status, acute metabolic encephalopathy. 12.Delirium, multifactorial. RECOMMENDATIONS: Continue current management and continue symptomatic treatment. Continue with bronchodilators and antibiotics. Continue the rest of medications. Guarded prognosis. Further recommendations to follow. MMODL / IJN: [id number] / MTDD
[2018-02-20] MEDS: IPRATROPIUM-ALBUTEROL 3 ML NEB INHALATION SCH ×6 (00:42→20:04)
[2018-02-20 03:01] LABS: Glucose,Whole Blood 78 mg/dL (75-99)
[2018-02-20 06:13] LABS: Glucose,Whole Blood 87 mg/dL (75-99)
[2018-02-20] MEDS: INSULIN ASPART 100 UNIT/ML 1 ML 10 ML VIAL SQ SCH ×5 (06:49→21:30)
--- NOTE | 2018-02-20 07:17 | P.PN ---
Progress Note - Text I had the opportunity to review patient's progress note. PT reports minimal assistance for transfers and standing. Fatigues quickly. OT reports maximal assistance for upper dressing and total assistance for lower dressing and bathing. 2 person maximal assistance for toileting. At this time continue to follow patient for possible inpatient rehab. Would consider for next week.
[2018-02-20] MEDS: BUDESONIDE 1 MG/2 ML NEBU INHALATION SCH (07:38)
[2018-02-20] MEDS: FORMOTEROL FUMARATE 20 MCG/2 ML NEBU INHALATION SCH (07:38)
[2018-02-20] MEDS: HEPARIN SODIUM,PORCINE 5,000 UNIT/ML 1 ML VIAL SQ SCH ×2 (08:22→17:41)
[2018-02-20] MEDS: MEROPENEM 1 GM in SODIUM CHLORIDE 0.9% 100 ML IVPB SCH ×2 (08:22→16:35)
[2018-02-20] MEDS: METOPROLOL TARTRATE 50 MG TAB PO SCH ×2 (08:23→21:38)
[2018-02-20] MEDS: ATORVASTATIN 40 MG TAB PO SCH (08:23)
[2018-02-20] MEDS: ASPIRIN 325 MG TAB PO SCH (08:23)
[2018-02-20] MEDS: CLOPIDOGREL 75 MG TAB PO SCH (08:23)
[2018-02-20] MEDS: TAMSULOSIN 0.4 MG CAP.ER.24H PO SCH (08:23)
[2018-02-20] MEDS: amLODIPine 5 MG TAB PO SCH (08:23)
[2018-02-20] MEDS: methylPREDNISolone SOD SUCCI 40 MG/ML 1 ML VIAL IV SCH (08:23)
--- NOTE | 2018-02-20 08:53 | XR ---
EXAMINATION TYPE: XR chest 1V portable DATE OF EXAM: 02/20/2018 COMPARISON: 02/19/2018 INDICATION: Postop CABG TECHNIQUE: Single frontal view of the chest is obtained. FINDINGS: The heart size is normal. The pulmonary vasculature is normal. The lungs are clear. IMPRESSION: 1. No acute pulmonary process.
[2018-02-20 09:44] LABS: Basophils % (A) 0 %; Eosinophils # (A) 0.4 k/uL (0-0.7); Eosinophils % (A) 2 %; HCT 33.6 % (39.0-53.0); HGB 11.4 gm/dL (13.0-17.5); Lymphocytes # (A) 4.1 k/uL (1.0-4.8); Lymphocytes % (A) 20 %; MCH 32.3 pg (25.0-35.0); MCHC 33.8 g/dL (31.0-37.0); MCV 95.4 fL (80.0-100.0); Monocytes # (A) 0.8 k/uL (0-1.0); Monocytes % (A) 4 %; Neutrophils # (A) 14.6 k/uL (1.3-7.7); Neutrophils % (A) 72 %; Platelet Count 687 k/uL (150-450); RBC 3.52 m/uL (4.30-5.90); WBC 20.3 k/uL (3.8-10.6)
[2018-02-20] MEDS: SERTRALINE 50 MG TAB PO SCH (10:00)
[2018-02-20 10:05] LABS: ALT 61 U/L (21-72); AST 21 U/L (17-59); Albumin 3.3 g/dL (3.5-5.0); Alkaline Phosphatase 53 U/L (38-126); Anion Gap 9 mmol/L; Blood Urea Nitrogen 16 mg/dL (9-20); Calcium 9.6 mg/dL (8.4-10.2); Carbon Dioxide 25 mmol/L (22-30); Chloride 105 mmol/L (98-107); Glucose 114 mg/dL (74-99); Potassium 4.1 mmol/L (3.5-5.1); Sodium 139 mmol/L (137-145); Total Bilirubin 0.9 mg/dL (0.2-1.3); Total Protein 6.3 g/dL (6.3-8.2)
[2018-02-20] MEDS ORDERED: ALPRAZolam 0.25 MG TAB PO PRN (11:13)
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
[2018-02-20 11:19] LABS: Glucose,Whole Blood 124 mg/dL (75-99)
[2018-02-20] MEDS: LOSARTAN 25 MG TAB PO SCH (12:47)
--- NOTE | 2018-02-20 15:25 | P.PN ---
Subjective Progress Note Date: 02/20/18 Principal diagnosis: Acute non-ST segment elevated SD, CAD, status post coronary artery bypass grafting postop day 20 This 42-year-old male patient is postop day #9 following his 2 vessel bypass surgery, off pump. Postop, the patient has been still intubated on mechanical ventilator due to complications of ARDS. On today's evaluation, I find this patient sedated with Diprivan and currently is on 50 mics of Diprivan for sedation. He is also paralyzed with Nimbex. He is calm and comfortable and synchronous with the mechanical ventilator. Earlier this morning he was an assist-control mode of ventilation with a tidal volume of 450, FiO2 of 50% with a PEEP of 13 and a respiratory rate of 34. He was on a I:E ratio of 1.2-1 and his inspiratory time was at 1.0 seconds. He had a blood gases earlier this morning that showed a pH of 7.42 with a pCO2 of 39 and pO2 of 77 and this was done earlier this morning and FiO2 of 50%. His chest x-ray showed a left lower lobe consolidation and ET tube was in a good location with diffuse groundglass changes throughout the lung hahn bilaterally consistent with ARDS. On examination, he had bilateral rhonchi and some limited expiratory wheeze. He underwent a bronchoscopy yesterday and the bronchioloalveolar lavage from left lower lobe is still pending for now and there is no microbial growth. However, there was copious amount of rest or secretions based on the operative report and the patient is running a low-grade fever with a T-max of 11.4. Based on all this, I left lower lobe pneumonia was suspected and I started this patient on IV meropenem. IV Zosyn on consult. Despite all this, he is hemodynamically stable. He is in a sinus rhythm. Sternum is stable clean and intact. No chest tubes are in place and all of the chest tubes have been removed. The neck fluid balance is 375 mL negative over the past 24 hours. He is on no pressors. He is tolerating his tube feedings which is in the form of vital at 30 mL an hour. Is producing adequate urine output. No other significant events overnight. His white cell count has been persistently elevated and remains elevated at 32.3. Hemoglobin stable at 12.1. On today's evaluation of 02/10/2018, the patient is postop day #10. The patient remains intubated on a mechanical ventilator. The patient is sedated and paralyzed. We are still having difficulties with oxygenation nontender the patient had developed post surgical ARDS and subsequently there is an indication of a left lower lobe pneumonia. The patient had a follow-up chest x- ray today that showed worsening in the consolidation of the left lower lobe. Earlier this morning, he was assist-control mode of ventilation at a PEEP of 14 , FiO2 of 80%, respiratory rate of 26 and tidal volume of 450. The morning. The peak air pressures around 33. His blood gases from today showed a pH of 7.31 with a pCO2 of 55 and pO2 of 86. Chest x-ray shows a dense consolidation and some volume loss in the left lower lobe. Based on this, I performed a bronchoscopy on this patient. Copious amount of purulent respiratory secretions was suctioned out from the left lower lobe and the amount was estimated to be around 30 mL of purulent material. I also performed segmental bronchial washings of the left lower lobe. The cultures will be sent. I started covering this patient with IV antibiotics and I put him on IV Merrem. This morning, he is afebrile however overnight he was spiking temperature of 100.0 with a T-max of 101.3. His white cell count is up to 34,000. Platelet counts are within normal limits. Hemodynamically stable on no pressors. Tolerating tube feeds. As mentioned, all of the chest tubes have been removed. On 02/11/2018 the patient is postop day #11. I performed a bronchoscopy on this patient yesterday and copious amount of purulent respiratory secretions were suctioned out from the patient's left lower lobe. Limited cultures indicating gram-positive cocci. There is also gram-positive cocci in the blood. We suspected the patient had a left lower lobe pneumonia with secondary septicemia. The patient is currently on Merrem and dose of vancomycin was given overnight. Overall oxidation improved following the bronchoscopy. This morning, the patient is on a tidal volume of 450, rate of 26, FiO2 of 40% to 14. Peak airway pressures around 31 with metastatic impression from 20. Blood gases from this morning showed a pH of 7.4 with a pCO2 of 42 and pO2 of 11. Chest x-ray shows improvement in the expression of the left lower lobe. Based on all this, I dropped down the PEEP to 12. Hemodynamically stable. He is in a normal sinus rhythm. Is producing adequate amount of urine output. White cell count remains elevated at 50.7 although somewhat improved compared to yesterday. Renal function is stable. The patient is currently afebrile. He is tolerating his tube feeds. Having regular bowel movements. His last temperature spike of 11.4 was from yesterday evening. No other significant events overnight. He is quite sedated on Diprivan at 50 mics. He was given a sedation holiday yesterday and he arouse and he was slightly agitated but cannot orotracheal tube and based on that he was placed back on sedation. On 02/12/2018 patient is postop day #12. The patient is doing well. The patient is sedated with Diprivan this morning however I'm in the process of taking him off the sedation and switching him to Precedex for sedation. The patient is still on mechanical ventilator. This morning's an assist-control at the rate of 26 right-sided volume of 450 and an FiO2 of 40% and a PEEP of 10. I the peak and static air pressures were not elevated and there were steadily declining. The patient's blood gas from this morning showed a pH of 7.43 with a pCO2 of 37 and pO2 of 98. Based on that, I dropped the PEEP down to 8 and then down to 5 cm of water and the patient was able to tolerate drop in the PEEP that was done over 6 hours and the saturation remains above 90%. I am at this point weaning the patient off the Diprivan and using Precedex for sedation. The patient is gradually arousing. Around half an hour ago, is opening his eyes and is following simple commands. Chest x-ray from today shows adequate expansion of both lungs and some limited infiltration seen in the left lung base. No new cultures and the previous coronary strep infection. The patient remains on a combination of IV Merrem and vancomycin. He is afebrile. On IV Solu-Medrol. He is tolerating his tube feeds via Dobbhoff. White cell count is gradually improving is down to 25. Hemoglobin stable at 9.4. Renal function is stable. No other significant events overnight. The neck fluid balance is +250 mL over the past 24 hours. On 02/13/2018 the patient is postop day #13. There has been steady improvement in his overall vascular status. Yesterday without too point with dropped the patient's PEEP down to 5 and FiO2 was kept at 40% with a tidal volume of 450 and the respiratory rate of 22. The patient was able to tolerate his vent setting without any major difficulties. He was given a sedation holiday and he got to the point where he was wide awake and comfortable and following commands and answering questions. Nevertheless he was profoundly weak and had a weak cough. I was not comfortable and extubating this patient even though his weaning parameters were good. However, his blood gases while being on a pressure support of 5 and a PEEP of 5 showed a component of respiratory alkalosis with a pH of 7.52 and a pCO2 of 30 and pO2 of 60 and the patient was becoming more tachypneic. Based on this, he was kept on sedation overnight and we're the process of repeating the weaning trial again this morning. On today' s chest x-ray, the patient has developed some limited bilateral lower lobe pulmonary infiltrates/atelectasis. Nevertheless, he does not have any significant respiratory secretions. He is on a combination of Merrem and vancomycin. The patient is hemodynamically stable. The patient is afebrile. White cell count is at 29.8. Morning blood gases showed a pH of 7.44 with a pCO2 of 35 and pO2 of 89. He is tolerating his enteral feeding for nutritional support. Developed a bowel movements. Surgical wound sites are dry clean and intact chest tubes have been removed. Hemoglobin stable. No other significant events overnight. I'm in the process of weaning the prevent and keeping the patient on low-dose Precedex. We will recheck his weaning parameters and assess his readiness to wean. Patient seen today 02/14/2018 in follow-up in the intensive care unit. This is postoperative day #14. He is currently resting comfortably in bed. He is awake and alert in no acute distress. He has some ongoing hoarseness. He is currently maintaining O2 saturations in the 90s on 5 L/m per nasal cannula. He' s been afebrile. He is currently in sinus rhythm. His chest x-ray showing improved aeration in both lungs. Follow-up blood cultures reveal no growth after 72 hours. White count 41.2. Hemoglobin 11.9. Creatinine 0.71. He remains on DuoNeb inhalations, Pulmicort and Perforomist inhalations. He is currently on vancomycin and meropenem. We decreased his IV Solu-Medrol. He was given additional Lasix this morning. Remains in a negative balance. On 02/15/2018 I'm seeing this patient in intensive care unit for a follow-up. The patient is postop day #15. The patient is currently on room air. Sternum stable clean and intact. Overnight he had some delirium and for that reason he was given IV Haldol. Currently he is more oriented however on and off I feel it is still foggy. There is obvious motor weakness in all 4 extremities and he is gradually improving. Unable to move him up on a chair today. No fever. No chills. Chest x-ray still showing pulmonary vessel congestion and patient will be given another dose of Lasix and the patient has been negative fluid balance over the past 24-48 hours. The patient is also on IV Solu-Medrol 40 mg every 24 hours this was tapered today. He is receiving Levemir insulin 10 units daily at bedtime. The patient is also on a combination of vancomycin and meropenem. Repeat cultures were sent. Infectious diseases managing the patient 's antibiotic coverage. Overall his antibiotic coverage can be simplified for now. Despite his fogginess and cloudiness in his mentation, the patient is able to move all 4 extremities. He is able to say a few sentences however he speaks only short sentences. He is obviously hoarse related to prolonged intubation. On 02/16/2018, patient remains in the intensive care unit, his postoperative day #16. Currently on room air, seems to be comfortable, in no form of respiratory distress, however he feels generally weak, and barely able to move his upper extremities against gravity. Patient remains on multiple medications including diuretics, antibiotics with vancomycin and Merrem, patient continues to have an infiltrate involving the left lower lobe. No active pulmonary symptoms at present. He denies any shortness of breath or chest pain. Continues to have leukocytosis with WBC count of 24.2 hemoglobin is 12 electrolytes and renal profile are normal. Chest x-ray this morning showed slight interstitial changes bilaterally, possibly interstitial edema, and there is significant improvement of aeration of lung bases especially at the left lung base. On 02/17/2018, patient remains in the intensive care unit, his postoperative day #17. Patient remains on room air, doing well, a Dobbhoff tube was attempted to be placed yesterday by the cardiac surgeon, however multiple attempts failed. Patient is now on feedings orally as per the recommendation of the speech pathologist. He remains on multiple medications including antibiotics, diuretics, and his chest x-ray is showing significant improvement with minimal atelectasis at the bases. Patient was seen by Dr. Del Valle yesterday , and plans are in progress to send him to a rehab. Continues to have leukocytosis with WBC count of 23.2 but improving hemoglobin is 10.9 basic metabolic profile and renal profile are normal. Chest x-ray was reviewed and showing steady improvement. Reevaluated today on 02/18/2018, patient remains in the ICU, he is postoperative day #18. Remains on room air, basically asymptomatic, no cough no wheezing no shortness of breath. His initial swallowing remains a bit of an issue, and he is being followed by speech therapy. Recommendations are being followed. Patient remains on antibiotics, diuretics, chest x-ray this morning showed hazy opacity in the left lower lobe with a small tiny left pleural effusion. However the patient is asymptomatic. Continues to have leukocytosis WBC count of 20.6, hemoglobin is 10.9. Basic metabolic profile is normal, renal profile is normal. The patient is seen again today 02/19/2018 on the selective care unit. Postoperative day #19. He is currently sitting up in a chair at the bedside. He is awake and alert in no acute distress. He denies any worsening shortness of breath, cough or congestion. He remains hoarse. Today's chest x-ray shows resolution of previously noted by a sellar infiltrates and small left-sided pleural effusion. He is maintaining good O2 saturations in the mid 90s on room air. White count 21.7. Hemoglobin 11.3. Creatinine 0.63. On 02/20/2018 patient seen in follow-up on selective care unit. He is awake and alert, in no acute distress. Room air pulse ox is 95%, afebrile. Today's chest x-ray has been reviewed and showed no acute pulmonary process. Patient has been ambulating, tolerating ablation very well, vital signs have been stable , no fever no chills, this is postop day 20. No cough, no chest congestion. Midsternal incision is clean dry and intact, well approximated, stable. He is working on his incentive spirometer. Remains on meropenem, for the left lower lobe pneumonia, which has completely cleared on the chest x-ray. Lab work has been reviewed, WBC is trending down, 20.3, hemoglobin is 11.4, electrolytes and renal profile are within normal limits. Objective - Vital Signs Vital signs: Vital Signs Temp 97.9 F 02/20/18 12:00 Pulse 94 02/20/18 12:00 Resp 20 02/20/18 12:00 BP 125/86 02/20/18 12:00 Pulse Ox 95 02/20/18 12:00 Intake & Output 02/19/18 02/20/18 02/20/18 18:59 06:59 18:59 Intake Total 882 590 Output Total 1450 1450 800 Balance -568 -1450 -210 Weight 93 kg 92.4 kg Intake: IV 330 Dextrose 5%-0.45% NaCl 1, 320 000 ml @ 40 mls/hr IV . Q24H NICHOLAS Rx#:[id number] Invasive Line 9 10 Oral 552 590 Output: Urine 1450 1450 800 Other: Voiding Method Indwelling Catheter Indwelling Catheter Indwelling Catheter # Bowel Movements 1 ABP, PAP, CO, CI - Last Documented Arterial Blood Pressure 100/64 Pulmonary Artery Pressure 36/26 Cardiac Output 6.4 Cardiac Index 2.9 - Exam Awake and alert in no acute distress. Maintaining good O2 saturations in the 90s on room air. Head exam was generally normal. There was no scleral icterus or corneal arcus. Mucous membranes were moist. Neck was supple and without jugular venous distension, thyromegaly, or carotid bruits. Carotids were easily palpable bilaterally. There was no adenopathy. Lungs sounds are clear. Cardiac exam revealed the PMI to be normally situated and sized. The rhythm was regular and no extrasystoles were noted during several minutes of auscultation. The first and second heart sounds were normal and physiologic splitting of the second heart sound was noted. There were no murmurs, rubs, clicks, or gallops. The patient is in sinus tachycardia. Abdominal exam revealed normal bowel sounds. The abdomen was soft, non-tender, and without masses, organomegaly, or appreciable enlargement of the abdominal aorta. Examination of the extremities revealed easily palpable radial, femoral and pedal pulses. There was no cyanosis, clubbing or edema. Examination of the skin revealed no evidence of significant rashes, suspicious appearing nevi or other concerning lesions. Sternum stable clean and intact Neurologically alert and oriented. - Labs CBC & Chem 7: 02/20/18 09:25 02/20/18 09:25 Labs: Abnormal Lab Results - Last 24 Hours (Table) 02/19/18 02/19/18 02/20/18 Range/Units 17:15 21:18 09:25 WBC (3.8-10.6) k/uL RBC (4.30-5.90) m/uL Hgb (13.0-17.5) gm/dL Hct (39.0-53.0) % Plt Count (150-450) k/uL Neutrophils # (1.3-7.7) k/uL Creatinine 0.65 L (0.66-1.25) mg/dL Glucose 114 H (74-99) mg/dL POC Glucose (mg/dL) 123 H 119 H (75-99) mg/dL Albumin 3.3 L (3.5-5.0) g/dL 02/20/18 02/20/18 Range/Units 09:25 11:16 WBC 20.3 H (3.8-10.6) k/uL RBC 3.52 L (4.30-5.90) m/uL Hgb 11.4 L (13.0-17.5) gm/dL Hct 33.6 L (39.0-53.0) % Plt Count 687 H (150-450) k/uL Neutrophils # 14.6 H (1.3-7.7) k/uL Creatinine (0.66-1.25) mg/dL Glucose (74-99) mg/dL POC Glucose (mg/dL) 124 H (75-99) mg/dL Albumin (3.5-5.0) g/dL Microbiology - Last 24 Hours (Table) 02/10/18 09:50 Acid Fast Bacilli Smear - Final Bronchial Washings - Left Acid Fast Bacilli Culture - Preliminary 02/08/18 10:50 Acid Fast Bacilli Smear - Final Bronchial Washings - Left Acid Fast Bacilli Culture - Preliminary 02/14/18 19:25 Blood Culture - Preliminary Blood No Growth after 120 hours Assessment and Plan Plan: #1 Acute non-ST segment elevation myocardial infarction. #2 Coronary artery disease with 100% occluded right coronary artery possibly chronic. There is also in-stent restenosis of the LAD with 95% occlusion. Status post coronary artery bypass grafting, postoperative day #19. #3 postoperative ARDS, an expected outcome, improving and the patient remains intubated on mechanical ventilator. Noted the patient also developed a left lower lobe pneumonia, thought to be related to beta hemolytic strep with a component of bacteremia. The patient had his ARDS complicated by left lower lobe pneumonia which obviously delayed the weaning process. Successfully extubated and currently on room air. #4 left lower lobe pneumonia. Near complete resolution on today's chest x-ray. The patient is afebrile. The patient is hemodynamically stable. The patient is on Merrem. #5 Previous history of coronary artery disease with stent placement to the LAD. #6 Hypertension. #7 Chronic and ongoing tobacco dependence with a component of chronic obstructive pulmonary disease. FEV1 value 50% of predicted. #8 Obesity. #9 Anxiety. Plan: Continue encouraging deep breathing and coughing, we'll switch the Pulmicort and Perforomist to Symbicort. Vital signs remain stable, no fever or chills, no dyspnea, no cough or congestion. Chest x-ray showed complete resolution of the left lower lobe pneumonia. Continue antibiotics per ID service recommendations. Anticipate discharge to rehab soon. We'll continue to follow I performed a history & physical examination of the patient and discussed their management with my nurse practitioner, Dionne Leroy. I reviewed the nurse practitioner's note and agree with the documented findings and plan of care. Lung sounds are clear. The findings and the impression was discussed with the patient. I attest to the documentation by the nurse practitioner. Time with Patient: Less than 30
[2018-02-20 16:42] LABS: Glucose,Whole Blood 147 mg/dL (75-99)
--- NOTE | 2018-02-20 18:19 | PN ---
PROGRESS NOTE DATE OF SERVICE: 02/20/2018 This 42-year-old gentleman who was admitted after CAD, CABG also had acute hypoxic respiratory failure. The patient underwent mechanical ventilation also. Patient is improving significantly. PT/OT is following the patient for possible rehab. No chest pain. No palpitations. No fever. On exam, alert and oriented x3. Pulse 94, blood pressure 155/86, respiration 20, temperature 97.9, pulse ox 94% on room air. HEENT: Conjunctivae normal. Oral mucosa moist. NECK: No jugular venous distention. No carotid bruit. No lymph node enlargement. CARDIOVASCULAR SYSTEM: S1, S2 muffled. RESPIRATORY SYSTEM: Breath sounds diminished at the bases. A few scattered rhonchi and crackles. ABDOMEN: Soft, non-tender. LEGS: No edema. No swelling. NERVOUS SYSTEM: Mild diffuse weakness. LABS: WBC 20.3, hemoglobin 11.4. ASSESSMENT: 1. Coronary artery disease, status post coronary artery bypass grafting. 2. Acute hypoxic respiratory failure, status post mechanical ventilation, with acute respiratory distress syndrome. 3. Acute dgi-WE-eujqcjj-elevation myocardial infarction, present on admission. 4. Status post bronchoscopy and mucus plugging. 5. Left lower pneumonia, possibly gram-negative, healthcare-associated. 6. Beta hemolytic streptococcus group C from the sputum and anaerobic gram-positive cocci from the blood culture. 7. Acute critical care polyneuropathy and polymyopathy. 8. History of nicotine dependence. 9. Hypertension. 10.Obesity. 11.Generalized anxiety. 12.Change in mental status, acute metabolic encephalopathy. 13.Delirium, multifactorial. RECOMMENDATIONS AND DISCUSSION: I recommend to continue current medication, continue with the monitoring, symptomatic treatment. Continue with the antibiotics and bronchodilators. PT/OT evaluation, possible ECF rehab. Guarded prognosis. Further recommendations to follow. MMODL / IJN: [id number] /
[2018-02-20] MEDS: SYMBICORT 160-4.5 MCG INHALER INHALATION SCH (20:05)
[2018-02-20 20:59] LABS: Glucose,Whole Blood 101 mg/dL (75-99)
[2018-02-20] MEDS: INSULIN DETEMIR 100 UNIT/ML 10 ML VIAL SQ SCH (21:38)
[2018-02-20] MEDS: SENNOSIDES-DOCUSATE SODIUM 1 EACH TAB PO SCH ×2 (21:38→21:41)
[2018-02-20] MEDS: ACETAMINOPHEN TAB 500 MG TAB PO PRN (21:52)
[2018-02-21] MEDS: HEPARIN SODIUM,PORCINE 5,000 UNIT/ML 1 ML VIAL SQ SCH ×4 (00:48→23:20)
[2018-02-21] MEDS: MEROPENEM 1 GM in SODIUM CHLORIDE 0.9% 100 ML IVPB SCH ×4 (00:48→23:20)
[2018-02-21] MEDS: IPRATROPIUM-ALBUTEROL 3 ML NEB INHALATION SCH ×7 (00:56→23:12)
[2018-02-21 01:53] LABS: Glucose,Whole Blood 110 mg/dL (75-99)
[2018-02-21] MEDS: INSULIN ASPART 100 UNIT/ML 1 ML 10 ML VIAL SQ SCH ×5 (04:34→21:09)
[2018-02-21 06:07] LABS: Glucose,Whole Blood 93 mg/dL (75-99)
[2018-02-21] MEDS: PANTOPRAZOLE 40 MG TABLET PO SCH (07:06)
--- NOTE | 2018-02-21 07:55 | XR ---
EXAMINATION TYPE: XR chest 2V DATE OF EXAM: 02/21/2018 COMPARISON: Chest x-ray from yesterday. HISTORY: Post CABG. TECHNIQUE: Frontal and lateral views of the chest are obtained. FINDINGS: Post CABG changes with mediastinal clips and sternal wires is redemonstrated. There is new patchy bibasilar opacity. Tiny bilateral pleural effusions are seen best on lateral view. New mild central vascular congestion is felt present. No pneumothorax is seen bilaterally. The cardiac silhoue tte size is stable and upper limits of normal. The osseous structures are intact. IMPRESSION: There is new mild central vascular congestion and tiny bilateral pleural effusions, fela elate for fluid overload state. There is developing patchy bibasilar atelectasis and/or infiltrate no mary. Progress study advised.
[2018-02-21] MEDS: SYMBICORT 160-4.5 MCG INHALER INHALATION SCH ×2 (08:08→19:49)
[2018-02-21] MEDS: METOPROLOL TARTRATE 50 MG TAB PO SCH ×2 (08:37→20:08)
[2018-02-21] MEDS: ATORVASTATIN 40 MG TAB PO SCH (08:37)
[2018-02-21] MEDS: LOSARTAN 25 MG TAB PO SCH (08:37)
[2018-02-21] MEDS: CLOPIDOGREL 75 MG TAB PO SCH (08:37)
[2018-02-21] MEDS: ASPIRIN 325 MG TAB PO SCH (08:37)
[2018-02-21] MEDS: amLODIPine 10 MG TAB PO SCH (08:37)
[2018-02-21] MEDS: TAMSULOSIN 0.4 MG CAP.ER.24H PO SCH (08:37)
[2018-02-21] MEDS: predniSONE 10 MG TAB PO SCH (08:37)
[2018-02-21] MEDS: SERTRALINE 50 MG TAB PO SCH (08:37)
--- NOTE | 2018-02-21 09:50 | PCN ---
PROCEDURE NOTE PROCEDURE NOTE: PREOP DIAGNOSIS: Hoarseness. POSTOP DIAGNOSIS: Hoarseness. consult note. DESCRIPTION OF THE PROCEDURE: The patient was in the hospital bed and flexible laryngoscopy was performed through the left nasal cavity. oropharynx, hypopharynx and larynx with the above findings noted. The patient tolerated procedure well with no complications. No blood loss. Findings reviewed with the patient today. Between consultation and counseling as well as procedure and physical examination, . MMODL / IJN: [id number] /
--- NOTE | 2018-02-21 09:50 | CONS ---
CONSULTATION REASON FOR CONSULTATION: Hoarseness post intubation. HISTORY OF PRESENT ILLNESS: This is a 42-year-old white male who had a myocardial infarction and underwent coronary artery bypass surgery in late December and had support had to be intubated for right around 2 weeks. He was extubated approximately 1 week ago and had some persistent hoarseness. He is having no sore throat or dysphagia. He is eating well. Overall, he is still quite weak and is going to rehab facility on Friday, 2 days from now. He feels that his voice is improving, although slowly. Again, he denies sore throat. He is having no aspiration symptoms. PAST MEDICAL HISTORY: Is positive for as above, tobacco abuse and hypertension, heart catheterization with stent. PAST SURGICAL HISTORY: Splenectomy. SOCIAL HISTORY: Does have a history of smoking and does drink alcohol occasionally. MEDICATIONS: At home are: Lopressor and Xanax. Current medications will not be renumerated as they are in the chart already. ALLERGIES: PENICILLIN REVIEW OF SYSTEMS: Noncontributory other than as above. Denies any respiratory difficulty or stridor. PHYSICAL EXAM: VITAL SIGNS: Vital signs overall stable. GENERAL: Well-developed adult white male in no acute distress. He is conversant. He is awake and alert. Oriented x3. Voice is mildly hoarse. Also mildly weak. He does have intelligible speech, however. HEENT/HEAD: Normocephalic, atraumatic. Ears bilaterally canals clear. Tympanic membranes unremarkable. Mobile. Nose shows mildly clear mucous drainage bilaterally with septal deviation to the left. The nasopharynx is unremarkable. Oropharynx shows no abnormal masses or lesions. No erythema. The hypopharynx and larynx including the flexible laryngoscopy shows mild diffuse edema of the true vocal cords. There is also some minimal healing exudate in the left vocal cord. Vocal cords however are mobile bilaterally. Good overall airway at this level. NECK: Supple without adenopathy or tenderness. ASSESSMENT: 1. Hoarseness. 2. Acute laryngitis secondary to recent intubation with potential ongoing hoarseness secondary to inhalers. PLAN: No particular recommendations at this point other than the fact that the patient will likely continue to improve spontaneously. He is already on steroids which should help with any inflammation. He will continue generalized voice rest but can speak. No dietary restrictions necessary at this point as he is swallowing without difficulties and without aspiration symptoms. It appears that he will likely still need to be on his inhalers. The Symbicort may cause some endpoint hoarseness but this appears necessary at this point. If once he is out of rehabilitation he has any continued difficulties that he can follow up in our office expectantly. If you have any questions or concerns please feel free to contact me. ISAAC / IJN: [id number] /
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
[2018-02-21 11:26] LABS: Glucose,Whole Blood 136 mg/dL (75-99)
--- NOTE | 2018-02-21 12:30 | P.PN ---
Subjective Progress Note Date: 02/21/18 Principal diagnosis: Acute non-ST segment elevation myocardial infarction, coronary artery disease, status post coronary bypass grafting. Postoperative day #21. This 42-year-old male patient is postop day #9 following his 2 vessel bypass surgery, off pump. Postop, the patient has been still intubated on mechanical ventilator due to complications of ARDS. On today's evaluation, I find this patient sedated with Diprivan and currently is on 50 mics of Diprivan for sedation. He is also paralyzed with Nimbex. He is calm and comfortable and synchronous with the mechanical ventilator. Earlier this morning he was an assist-control mode of ventilation with a tidal volume of 450, FiO2 of 50% with a PEEP of 13 and a respiratory rate of 34. He was on a I:E ratio of 1.2-1 and his inspiratory time was at 1.0 seconds. He had a blood gases earlier this morning that showed a pH of 7.42 with a pCO2 of 39 and pO2 of 77 and this was done earlier this morning and FiO2 of 50%. His chest x-ray showed a left lower lobe consolidation and ET tube was in a good location with diffuse groundglass changes throughout the lung hahn bilaterally consistent with ARDS. On examination, he had bilateral rhonchi and some limited expiratory wheeze. He underwent a bronchoscopy yesterday and the bronchioloalveolar lavage from left lower lobe is still pending for now and there is no microbial growth. However, there was copious amount of rest or secretions based on the operative report and the patient is running a low-grade fever with a T-max of 11.4. Based on all this, I left lower lobe pneumonia was suspected and I started this patient on IV meropenem. IV Zosyn on consult. Despite all this, he is hemodynamically stable. He is in a sinus rhythm. Sternum is stable clean and intact. No chest tubes are in place and all of the chest tubes have been removed. The neck fluid balance is 375 mL negative over the past 24 hours. He is on no pressors. He is tolerating his tube feedings which is in the form of vital at 30 mL an hour. Is producing adequate urine output. No other significant events overnight. His white cell count has been persistently elevated and remains elevated at 32.3. Hemoglobin stable at 12.1. On today's evaluation of 02/10/2018, the patient is postop day #10. The patient remains intubated on a mechanical ventilator. The patient is sedated and paralyzed. We are still having difficulties with oxygenation nontender the patient had developed post surgical ARDS and subsequently there is an indication of a left lower lobe pneumonia. The patient had a follow-up chest x- ray today that showed worsening in the consolidation of the left lower lobe. Earlier this morning, he was assist-control mode of ventilation at a PEEP of 14 , FiO2 of 80%, respiratory rate of 26 and tidal volume of 450. The morning. The peak air pressures around 33. His blood gases from today showed a pH of 7.31 with a pCO2 of 55 and pO2 of 86. Chest x-ray shows a dense consolidation and some volume loss in the left lower lobe. Based on this, I performed a bronchoscopy on this patient. Copious amount of purulent respiratory secretions was suctioned out from the left lower lobe and the amount was estimated to be around 30 mL of purulent material. I also performed segmental bronchial washings of the left lower lobe. The cultures will be sent. I started covering this patient with IV antibiotics and I put him on IV Merrem. This morning, he is afebrile however overnight he was spiking temperature of 100.0 with a T-max of 101.3. His white cell count is up to 34,000. Platelet counts are within normal limits. Hemodynamically stable on no pressors. Tolerating tube feeds. As mentioned, all of the chest tubes have been removed. On 02/11/2018 the patient is postop day #11. I performed a bronchoscopy on this patient yesterday and copious amount of purulent respiratory secretions were suctioned out from the patient's left lower lobe. Limited cultures indicating gram-positive cocci. There is also gram-positive cocci in the blood. We suspected the patient had a left lower lobe pneumonia with secondary septicemia. The patient is currently on Merrem and dose of vancomycin was given overnight. Overall oxidation improved following the bronchoscopy. This morning, the patient is on a tidal volume of 450, rate of 26, FiO2 of 40% to 14. Peak airway pressures around 31 with metastatic impression from 20. Blood gases from this morning showed a pH of 7.4 with a pCO2 of 42 and pO2 of 11. Chest x-ray shows improvement in the expression of the left lower lobe. Based on all this, I dropped down the PEEP to 12. Hemodynamically stable. He is in a normal sinus rhythm. Is producing adequate amount of urine output. White cell count remains elevated at 50.7 although somewhat improved compared to yesterday. Renal function is stable. The patient is currently afebrile. He is tolerating his tube feeds. Having regular bowel movements. His last temperature spike of 11.4 was from yesterday evening. No other significant events overnight. He is quite sedated on Diprivan at 50 mics. He was given a sedation holiday yesterday and he arouse and he was slightly agitated but cannot orotracheal tube and based on that he was placed back on sedation. On 02/12/2018 patient is postop day #12. The patient is doing well. The patient is sedated with Diprivan this morning however I'm in the process of taking him off the sedation and switching him to Precedex for sedation. The patient is still on mechanical ventilator. This morning's an assist-control at the rate of 26 right-sided volume of 450 and an FiO2 of 40% and a PEEP of 10. I the peak and static air pressures were not elevated and there were steadily declining. The patient's blood gas from this morning showed a pH of 7.43 with a pCO2 of 37 and pO2 of 98. Based on that, I dropped the PEEP down to 8 and then down to 5 cm of water and the patient was able to tolerate drop in the PEEP that was done over 6 hours and the saturation remains above 90%. I am at this point weaning the patient off the Diprivan and using Precedex for sedation. The patient is gradually arousing. Around half an hour ago, is opening his eyes and is following simple commands. Chest x-ray from today shows adequate expansion of both lungs and some limited infiltration seen in the left lung base. No new cultures and the previous coronary strep infection. The patient remains on a combination of IV Merrem and vancomycin. He is afebrile. On IV Solu-Medrol. He is tolerating his tube feeds via Dobbhoff. White cell count is gradually improving is down to 25. Hemoglobin stable at 9.4. Renal function is stable. No other significant events overnight. The neck fluid balance is +250 mL over the past 24 hours. On 02/13/2018 the patient is postop day #13. There has been steady improvement in his overall vascular status. Yesterday without too point with dropped the patient's PEEP down to 5 and FiO2 was kept at 40% with a tidal volume of 450 and the respiratory rate of 22. The patient was able to tolerate his vent setting without any major difficulties. He was given a sedation holiday and he got to the point where he was wide awake and comfortable and following commands and answering questions. Nevertheless he was profoundly weak and had a weak cough. I was not comfortable and extubating this patient even though his weaning parameters were good. However, his blood gases while being on a pressure support of 5 and a PEEP of 5 showed a component of respiratory alkalosis with a pH of 7.52 and a pCO2 of 30 and pO2 of 60 and the patient was becoming more tachypneic. Based on this, he was kept on sedation overnight and we're the process of repeating the weaning trial again this morning. On today' s chest x-ray, the patient has developed some limited bilateral lower lobe pulmonary infiltrates/atelectasis. Nevertheless, he does not have any significant respiratory secretions. He is on a combination of Merrem and vancomycin. The patient is hemodynamically stable. The patient is afebrile. White cell count is at 29.8. Morning blood gases showed a pH of 7.44 with a pCO2 of 35 and pO2 of 89. He is tolerating his enteral feeding for nutritional support. Developed a bowel movements. Surgical wound sites are dry clean and intact chest tubes have been removed. Hemoglobin stable. No other significant events overnight. I'm in the process of weaning the prevent and keeping the patient on low-dose Precedex. We will recheck his weaning parameters and assess his readiness to wean. Patient seen today 02/14/2018 in follow-up in the intensive care unit. This is postoperative day #14. He is currently resting comfortably in bed. He is awake and alert in no acute distress. He has some ongoing hoarseness. He is currently maintaining O2 saturations in the 90s on 5 L/m per nasal cannula. He' s been afebrile. He is currently in sinus rhythm. His chest x-ray showing improved aeration in both lungs. Follow-up blood cultures reveal no growth after 72 hours. White count 41.2. Hemoglobin 11.9. Creatinine 0.71. He remains on DuoNeb inhalations, Pulmicort and Perforomist inhalations. He is currently on vancomycin and meropenem. We decreased his IV Solu-Medrol. He was given additional Lasix this morning. Remains in a negative balance. On 02/15/2018 I'm seeing this patient in intensive care unit for a follow-up. The patient is postop day #15. The patient is currently on room air. Sternum stable clean and intact. Overnight he had some delirium and for that reason he was given IV Haldol. Currently he is more oriented however on and off I feel it is still foggy. There is obvious motor weakness in all 4 extremities and he is gradually improving. Unable to move him up on a chair today. No fever. No chills. Chest x-ray still showing pulmonary vessel congestion and patient will be given another dose of Lasix and the patient has been negative fluid balance over the past 24-48 hours. The patient is also on IV Solu-Medrol 40 mg every 24 hours this was tapered today. He is receiving Levemir insulin 10 units daily at bedtime. The patient is also on a combination of vancomycin and meropenem. Repeat cultures were sent. Infectious diseases managing the patient 's antibiotic coverage. Overall his antibiotic coverage can be simplified for now. Despite his fogginess and cloudiness in his mentation, the patient is able to move all 4 extremities. He is able to say a few sentences however he speaks only short sentences. He is obviously hoarse related to prolonged intubation. On 02/16/2018, patient remains in the intensive care unit, his postoperative day #16. Currently on room air, seems to be comfortable, in no form of respiratory distress, however he feels generally weak, and barely able to move his upper extremities against gravity. Patient remains on multiple medications including diuretics, antibiotics with vancomycin and Merrem, patient continues to have an infiltrate involving the left lower lobe. No active pulmonary symptoms at present. He denies any shortness of breath or chest pain. Continues to have leukocytosis with WBC count of 24.2 hemoglobin is 12 electrolytes and renal profile are normal. Chest x-ray this morning showed slight interstitial changes bilaterally, possibly interstitial edema, and there is significant improvement of aeration of lung bases especially at the left lung base. On 02/17/2018, patient remains in the intensive care unit, his postoperative day #17. Patient remains on room air, doing well, a Dobbhoff tube was attempted to be placed yesterday by the cardiac surgeon, however multiple attempts failed. Patient is now on feedings orally as per the recommendation of the speech pathologist. He remains on multiple medications including antibiotics, diuretics, and his chest x-ray is showing significant improvement with minimal atelectasis at the bases. Patient was seen by Dr. Del Valle yesterday , and plans are in progress to send him to a rehab. Continues to have leukocytosis with WBC count of 23.2 but improving hemoglobin is 10.9 basic metabolic profile and renal profile are normal. Chest x-ray was reviewed and showing steady improvement. Reevaluated today on 02/18/2018, patient remains in the ICU, he is postoperative day #18. Remains on room air, basically asymptomatic, no cough no wheezing no shortness of breath. His initial swallowing remains a bit of an issue, and he is being followed by speech therapy. Recommendations are being followed. Patient remains on antibiotics, diuretics, chest x-ray this morning showed hazy opacity in the left lower lobe with a small tiny left pleural effusion. However the patient is asymptomatic. Continues to have leukocytosis WBC count of 20.6, hemoglobin is 10.9. Basic metabolic profile is normal, renal profile is normal. The patient is seen again today 02/19/2018 on the selective care unit. Postoperative day #19. He is currently sitting up in a chair at the bedside. He is awake and alert in no acute distress. He denies any worsening shortness of breath, cough or congestion. He remains hoarse. Today's chest x-ray shows resolution of previously noted by a sellar infiltrates and small left-sided pleural effusion. He is maintaining good O2 saturations in the mid 90s on room air. White count 21.7. Hemoglobin 11.3. Creatinine 0.63. On 02/20/2018 patient seen in follow-up on selective care unit. He is awake and alert, in no acute distress. Room air pulse ox is 95%, afebrile. Today's chest x-ray has been reviewed and showed no acute pulmonary process. Patient has been ambulating, tolerating ablation very well, vital signs have been stable , no fever no chills, this is postop day 20. No cough, no chest congestion. Midsternal incision is clean dry and intact, well approximated, stable. He is working on his incentive spirometer. Remains on meropenem, for the left lower lobe pneumonia, which has completely cleared on the chest x-ray. Lab work has been reviewed, WBC is trending down, 20.3, hemoglobin is 11.4, electrolytes and renal profile are within normal limits. The patient is seen again today 02/21/2018 in follow-up on the selective care unit. He is currently awake and alert in no acute distress. He is doing better each day getting stronger. He is maintaining good O2 saturations in the mid 90s on room air. He is working well with the incentive spirometer pulling approximately 2 L. He remains afebrile. Hemodynamically stable. Chest x-ray reveals some mild central vascular congestion and tiny bilateral pleural effusions. There is a patchy bibasilar atelectasis noted. He remains on meropenem, DuoNeb inhalations and Symbicort. ENT visualized his vocal cords and found acute laryngitis secondary to recent intubation with potential ongoing hoarseness secondary to inhalers. Objective - Vital Signs Vital signs: Vital Signs Temp 97.8 F 02/21/18 08:44 Pulse 82 02/21/18 11:59 Resp 19 02/21/18 08:44 BP 106/68 02/21/18 08:44 Pulse Ox 97 02/21/18 08:44 Intake & Output 02/20/18 02/21/18 02/21/18 18:59 06:59 18:59 Intake Total 1070 240 Output Total 1800 600 800 Balance -730 -600 -560 Weight 92.4 kg 92.9 kg Intake: Oral 1070 240 Output: Urine 1800 600 800 Other: Voiding Method Indwelling Catheter Indwelling Catheter Indwelling Catheter ABP, PAP, CO, CI - Last Documented Arterial Blood Pressure 100/64 Pulmonary Artery Pressure 36/26 Cardiac Output 6.4 Cardiac Index 2.9 - Exam General appearance: Awake and alert in no acute distress. Remains hoarse. Maintaining good O2 saturations in the 90s on room air. Head exam was generally normal. There was no scleral icterus or corneal arcus. Mucous membranes were moist. Neck was supple and without jugular venous distension, thyromegaly, or carotid bruits. Carotids were easily palpable bilaterally. There was no adenopathy. Lungs sounds with faint crackles in the bilateral posterior bases. Cardiac exam revealed the PMI to be normally situated and sized. The rhythm was regular and no extrasystoles were noted during several minutes of auscultation. The first and second heart sounds were normal and physiologic splitting of the second heart sound was noted. There were no murmurs, rubs, clicks, or gallops. The patient is in sinus tachycardia. Abdominal exam revealed normal bowel sounds. The abdomen was soft, non-tender, and without masses, organomegaly, or appreciable enlargement of the abdominal aorta. Examination of the extremities revealed easily palpable radial, femoral and pedal pulses. There was no cyanosis, clubbing or edema. Examination of the skin revealed no evidence of significant rashes, suspicious appearing nevi or other concerning lesions. Sternum stable clean and intact Neurologically alert and oriented. - Labs CBC & Chem 7: 02/20/18 09:25 02/20/18 09:25 Labs: Abnormal Lab Results - Last 24 Hours (Table) 02/20/18 02/20/18 02/21/18 Range/Units 16:33 20:55 01:51 POC Glucose (mg/dL) 147 H 101 H 110 H (75-99) mg/dL 02/21/18 Range/Units 11:13 POC Glucose (mg/dL) 136 H (75-99) mg/dL Microbiology - Last 24 Hours (Table) 02/14/18 19:25 Blood Culture - Final Blood No Growth after 144 hours 02/10/18 09:50 Acid Fast Bacilli Smear - Final Bronchial Washings - Left Acid Fast Bacilli Culture - Preliminary 02/08/18 10:50 Acid Fast Bacilli Smear - Final Bronchial Washings - Left Acid Fast Bacilli Culture - Preliminary Assessment and Plan Assessment: Impression: #1 Acute non-ST segment elevation myocardial infarction. #2 Coronary artery disease with 100% occluded right coronary artery possibly chronic. There is also in-stent restenosis of the LAD with 95% occlusion. Status post coronary artery bypass grafting, postoperative day #21. #3 postoperative ARDS, an expected outcome, improving and the patient remains intubated on mechanical ventilator. Noted the patient also developed a left lower lobe pneumonia, thought to be related to beta hemolytic strep with a component of bacteremia. The patient had his ARDS complicated by left lower lobe pneumonia which obviously delayed the weaning process. Successfully extubated and currently on room air. #4 left lower lobe pneumonia. The patient is afebrile. The patient is hemodynamically stable. The patient is on Merrem. #5 Previous history of coronary artery disease with stent placement to the LAD. #6 Hypertension. #7 Chronic and ongoing tobacco dependence with a component of chronic obstructive pulmonary disease. FEV1 value 50% of predicted. #8 Obesity. #9 Anxiety. #10 Ongoing hoarseness, vocal cords visualized by ENT and suspected to have laryngitis secondary to intubation and ongoing inhalers. Plan: The patient was seen and evaluated by Dr. Jean. Chest x-ray, labs reviewed. He is currently maintaining good O2 saturations in the 90s on room air. Continue antibiotics. We will discontinue the Symbicort due to the possible cause of ongoing hoarseness/laryngitis. We will continue to follow and make further recommendations based on his clinical status. I, the cosigning physician, performed a history & physical examination of the patient. Lungs sounds with faint crackles in the bilateral posterior bases. Maintaining good O2 saturations in the 90s on room air. I discussed the assessment and plan of care with my nurse practitioner, Faviola Luna. I attest to the above consultation as dictated by her.
[2018-02-21 16:28] LABS: Glucose,Whole Blood 136 mg/dL (75-99)
--- NOTE | 2018-02-21 17:11 | PN ---
PROGRESS NOTE DATE OF SERVICE: 02/21/2018 This 42-year-old gentleman who was admitted after CAD, CABG, is improving significantly. No chest pain or palpitation. No fever. PHYSICAL EXAMINATION: On exam, alert and oriented x3. Pulse 81, blood pressure 108/65, respirations 16, temperature 97.4, pulse ox 94% on room air. HEENT: Conjunctivae normal. NECK: No jugular venous distention. CARDIOVASCULAR: S1 and S2 muffled. RESPIRATORY: Breath sounds diminished at the bases. A few scattered rhonchi and crackles. ABDOMEN: Soft, nontender. LEGS: No edema, no swelling. NERVOUS SYSTEM: No focal deficits. LABS: WBC 20.3, [id number]. ASSESSMENT: 1. Coronary artery disease, status post coronary artery bypass grafting. 2. Acute hypoxic respiratory failure, status post mechanical ventilation with acute respiratory distress syndrome. 3. Acute [id number] myocardial infarction, present on admission. 4. Status post bronchoscopy and mucus plugging. 5. Left lower lobe pneumonia possibly gram-negative healthcare associated. 6. Beta hemolytic Streptococcus group C from sputum with anaerobic gram-positive cocci from blood culture. 7. Acute critical care polyneuropathy and polymyopathy. 8. History of nicotine dependence. 9. Hypertension. 10.Obesity. 11.Generalized anxiety. 12.Change in mental status, metabolic encephalopathy. 13.Delirium, multifactorial. RECOMMENDATIONS AND DISCUSSION: Recommend to continue current medications, continue with monitoring and symptomatic treatment. At this time I would recommend continue with incentive spirometry, DVT prophylaxis, rest of the medications. Monitor blood sugars closely. Further recommendations to follow. MMODL / IJN: [id number] /
[2018-02-21 21:03] LABS: Glucose,Whole Blood 128 mg/dL (75-99)
[2018-02-21] MEDS: SENNOSIDES-DOCUSATE SODIUM 1 EACH TAB PO SCH (21:10)
[2018-02-21] MEDS: INSULIN DETEMIR 100 UNIT/ML 10 ML VIAL SQ SCH (21:11)
[2018-02-21] MEDS: DEXTROSE 5%-0.45% NACL 1,000 ML IV SCH ×3 (22:58→23:01)
[2018-02-22] MEDS: INSULIN ASPART 100 UNIT/ML 1 ML 10 ML VIAL SQ SCH ×5 (02:01→19:58)
[2018-02-22 02:13] LABS: Glucose,Whole Blood 74 mg/dL (75-99)
[2018-02-22] MEDS: IPRATROPIUM-ALBUTEROL 3 ML NEB INHALATION SCH ×6 (03:25→23:49)
[2018-02-22 06:21] LABS: Glucose,Whole Blood 83 mg/dL (75-99)
[2018-02-22] MEDS: PANTOPRAZOLE 40 MG TABLET PO SCH (06:43)
[2018-02-22] MEDS: METOPROLOL TARTRATE 50 MG TAB PO SCH ×2 (07:40→20:03)
[2018-02-22] MEDS: MEROPENEM 1 GM in SODIUM CHLORIDE 0.9% 100 ML IVPB SCH ×3 (07:40→23:59)
[2018-02-22] MEDS: amLODIPine 10 MG TAB PO SCH (07:40)
[2018-02-22] MEDS: predniSONE 10 MG TAB PO SCH (07:41)
[2018-02-22] MEDS: CLOPIDOGREL 75 MG TAB PO SCH (07:41)
[2018-02-22] MEDS: LOSARTAN 25 MG TAB PO SCH (07:41)
[2018-02-22] MEDS: TAMSULOSIN 0.4 MG CAP.ER.24H PO SCH (07:41)
[2018-02-22] MEDS: SERTRALINE 50 MG TAB PO SCH (07:41)
[2018-02-22] MEDS: ATORVASTATIN 40 MG TAB PO SCH (07:41)
[2018-02-22] MEDS: ASPIRIN 325 MG TAB PO SCH (07:41)
[2018-02-22] MEDS: HEPARIN SODIUM,PORCINE 5,000 UNIT/ML 1 ML VIAL SQ SCH ×3 (07:42→23:59)
[2018-02-22] MEDS: SYMBICORT 160-4.5 MCG INHALER INHALATION SCH ×2 (07:56→21:36)
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
[2018-02-22 12:02] LABS: Glucose,Whole Blood 106 mg/dL (75-99)
[2018-02-22 16:52] LABS: Glucose,Whole Blood 108 mg/dL (75-99)
--- NOTE | 2018-02-22 19:18 | PN ---
PROGRESS NOTE DATE OF SERVICE: 02/22/2018 This 42-year-old gentleman was admitted CAD, CABG also with features of recent pneumonia. The patient is on broad-spectrum IV antibiotics. The patient has is slated for inpatient rehab with Dr. Arguelles. Insurance clearance is pending at this time. Patient is on meropenem since 02/09 at this time. The cultures are showing gram - positive anaerobic cocci from 02/08 and beta hemolytic streptococci on 01/06 and urine culture earlier showed Klebsiella pneumoniae. Most recent urine culture is negative. PAST MEDICAL HISTORY: Reviewed. REVIEW OF SYSTEM: CARDIOVASCULAR: No angina. RESPIRATORY: As mentioned earlier. GI: As mentioned earlier. : No dysuria. NERVOUS SYSTEM: No numbness or weakness. CURRENT MEDICATIONS: Reviewed and include: 1. Tylenol 1000 mg q.6 p.r.n. 2. DuoNeb q.i.d. 3. Xanax 0.5 t.i.d. 4. Norvasc 10 mg. 5. Aspirin 325 mg. 6. Lipitor 40 mg. 7. Dulcolax 10 mg daily. 8. Symbicort 160/4.5, 2 puffs p.o. daily. 9. Plavix 75 mg daily. 10.Heparin 5 subcu q.8. 11.NovoLog scale. 12.Levemir. 13.Cozaar. 14.Milk of magnesia. 15.p.r.n. medications prednisone, Zoloft, Flomax. PHYSICAL EXAM: Patient is alert, oriented x3. Pulse 77, blood pressure 150/60, respirations 16, temperature is normal. Pulse ox 93% on room air. HEENT: Conjunctivae normal. Oral mucosa moist. Neck is no jugular venous distention. No carotid bruit. No lymph node enlargement. CARDIOVASCULAR: S1, S2. RESPIRATORY: Breath sounds diminished in the bases. Bilateral scattered rhonchi and crackles and expiratory wheezing also present. ABDOMEN: Soft, nontender. No mass. LEGS: No edema. NERVOUS SYSTEM: No focal deficits. LYMPHATICS: No lymphadenopathy in the neck, axillae, groin. SKIN: No ulcer, rash. diffusely weak. LABS: WBC 20.3, hemoglobin 11.4. ASSESSMENT: 1. Coronary artery disease, status post coronary artery bypass grafting. 2. Acute hypoxic respiratory failure, status post mechanical ventilation with ARDS. 3. Acute non ST elevation myocardial infarction, present on admission. 4. Status post bronchoscopy and mucus plugging. 5. Left lower lobe pneumonia possibly gram-negative healthcare associated. 6 groups from sputum with anaerobic gram-positive cocci in the blood culture. Final cultures are pending at this time. 7. Acute polyneuropathy and polymyopathy. 8. History of nicotine dependence. 9. Hypertension. 10.Obesity. 11.Generalized anxiety. 12.Change in mental status, acute metabolic encephalopathy. 13.Delirium, multifactorial. RECOMMENDATIONS AND DISCUSSION: In this 42-year-old gentleman who was admitted with multiple complex medical issues, will monitor the patient closely. Continue the current management and symptomatic treatment. Continue with bronchodilators, continue with antibiotics. DVT prophylaxis. Incentive spirometry. PT, OT evaluation. I would also follow the final culture reports to ensure stability. Otherwise repeat labs will be ordered. The most recent chest x- ray done on was reviewed personally by me and reviewed, which showed significant improvement. Minimal blunting of the left costophrenic angle suspected. We will continue to monitor. Further recommendations to follow. See orders for details. MMODL / IJN: [id number] / MTDD
[2018-02-22 19:41] LABS: ALT 65 U/L (21-72); AST 17 U/L (17-59); Albumin 3.3 g/dL (3.5-5.0); Alkaline Phosphatase 57 U/L (38-126); Anion Gap 7 mmol/L; Blood Urea Nitrogen 14 mg/dL (9-20); Calcium 9.6 mg/dL (8.4-10.2); Carbon Dioxide 26 mmol/L (22-30); Chloride 105 mmol/L (98-107); Glucose 111 mg/dL (74-99); Potassium 4.2 mmol/L (3.5-5.1); Sodium 138 mmol/L (137-145); Total Bilirubin 0.6 mg/dL (0.2-1.3); Total Protein 6.1 g/dL (6.3-8.2)
[2018-02-22 19:58] LABS: Glucose,Whole Blood 100 mg/dL (75-99)
[2018-02-22] MEDS: SENNOSIDES-DOCUSATE SODIUM 1 EACH TAB PO SCH ×2 (20:03→20:10)
[2018-02-22] MEDS: INSULIN DETEMIR 100 UNIT/ML 10 ML VIAL SQ SCH (20:46)
[2018-02-23 02:07] LABS: Glucose,Whole Blood 92 mg/dL (75-99)
[2018-02-23] MEDS: INSULIN ASPART 100 UNIT/ML 1 ML 10 ML VIAL SQ SCH ×5 (02:15→22:13)
[2018-02-23] MEDS: IPRATROPIUM-ALBUTEROL 3 ML NEB INHALATION SCH ×5 (03:17→18:58)
[2018-02-23 05:48] LABS: Glucose,Whole Blood 89 mg/dL (75-99)
[2018-02-23 06:39] LABS: HCT 34.2 % (39.0-53.0); HGB 10.6 gm/dL (13.0-17.5); MCH 29.8 pg (25.0-35.0); Mean Platelet Volume 6.8; Platelet Count 702 k/uL (150-450); RBC 3.56 m/uL (4.30-5.90); RDW 14.4 % (11.5-15.5); WBC 18.2 k/uL (3.8-10.6)
[2018-02-23] MEDS: PANTOPRAZOLE 40 MG TABLET PO SCH (06:44)
[2018-02-23 07:04] LABS: Lymphocytes # (M) 7.83 k/uL (1.0-4.8); Monocytes # (M) 1.82 k/uL (0-1.0); Neutrophils # (M) 8.55 k/uL (1.3-7.7); Neutrophils % (M) 47 %; Nucleated Red Blood Cells 0 /100 WBC (0-0); Total Cells Counted 100
[2018-02-23] MEDS: TAMSULOSIN 0.4 MG CAP.ER.24H PO SCH (09:16)
[2018-02-23] MEDS: SERTRALINE 50 MG TAB PO SCH (09:16)
[2018-02-23] MEDS: predniSONE 10 MG TAB PO SCH (09:16)
[2018-02-23] MEDS: ASPIRIN 325 MG TAB PO SCH (09:16)
[2018-02-23] MEDS: MEROPENEM 1 GM in SODIUM CHLORIDE 0.9% 100 ML IVPB SCH ×3 (09:16→23:44)
[2018-02-23] MEDS: ATORVASTATIN 40 MG TAB PO SCH (09:17)
[2018-02-23] MEDS: amLODIPine 10 MG TAB PO SCH (09:17)
[2018-02-23] MEDS: CLOPIDOGREL 75 MG TAB PO SCH (09:17)
[2018-02-23] MEDS: METOPROLOL TARTRATE 50 MG TAB PO SCH ×2 (09:17→22:14)
[2018-02-23] MEDS: HEPARIN SODIUM,PORCINE 5,000 UNIT/ML 1 ML VIAL SQ SCH ×3 (09:17→23:43)
[2018-02-23] MEDS: LOSARTAN 25 MG TAB PO SCH (09:17)
[2018-02-23 11:19] LABS: Glucose,Whole Blood 106 mg/dL (75-99)
[2018-02-23 16:13] LABS: Glucose,Whole Blood 114 mg/dL (75-99)
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
--- NOTE | 2018-02-23 16:44 | P.PN ---
Subjective Progress Note Date: 02/23/18 Progress note being dictated for Dr. Melara Interval history:Non-ST elevated [place] status post coronary artery bypass graft. Mr. Castillo is a 42-year-old male with a past medical history of hypertension, hyperlipidemia, nicotine dependence, coronary artery disease with prior stenting performed in 2003 2004 in [place] coming into the hospital with a chief complaint of chest discomfort in the upper mid sternum. Patient describes it as severe tightness and heaviness and he was short of breath and diaphoretic. Patient pain was so severe that he was unable to speak at the time when he had the chest pain. In the ED patient had elevated troponins and started on IV heparin. Patient subsequently underwent cardiac cath which revealed a total occluded right coronary artery that appeared to be chronically occluded. There is also a complex lesion and in-stent restenosis of the proximal LAD. So he was recommended to get a coronary artery bypass graft that is scheduled for tomorrow morning. Patient has risk factors of smoking for the past 26 years almost 1 pack per day. 02/01/18 - patient is postop day 1. Patient is in the ICU currently on mechanical ventilation. He is sedated with propofol, Nimbex and fentanyl. Patient was hypoxemic on 100% FiO2 yesterday, which could be due to acute lung injury. So his ventilator settings have been adjusted by Dr. Gipson. He is still on Cardizem drip. On 02/02/2018 Patient is still on mechanical ventilator and sedated.. Currently on Cardizem drip. Also present on insulin drip. Dobbhoff tube was placed for nutrition. Chest x-ray showed left lower lobe atelectasis and infiltrate. Patient is with pleural chest tube. Mediastinal chest tube was removed. No fever noted. Pulmonary, CT surgery is following. 02/03/2018 Patient had postoperative hypoxemic respiratory failure due to suspected ARDS. Currently patient is on mechanical ventilator. Currently Cardizem drip is off. Feeding Dobbhoff tube. Currently patient is sedated. Review of systems could not be apparent from the patient Chest x-ray showed no acute cardiopulmonary process. 02/06/2018 Patient is currently intubated and sedated. Patient developed hypoxemic respiratory failure postoperatively likely due to ARDS. Patient has been afebrile. Otherwise still tachycardic. Metoprolol dose has been increased. Patient will be started on Lantus and insulin sliding scale. Will hold insulin drip Chest tube has been discontinued. Pulmonary and CT surgery is following. Urine culture is growing Klebsiella. 02/09/2018 remains paralyzed on Nimbex, sedated on diprovan. Remains vent dependent, FiO2 50%/+13 of PEEP. Hemoglobin 12.1. Chest x-ray reporting left lower lobe atelectasis versus pneumonia and associated effusion. Retrocardiac density. Underwent bronchoscopy yesterday, copious secretions, cultures currently reporting no microbial growth, suspected left lower lobe pneumonia. T -max 101.4. WBC 32.3. Sputum culture pending. Merrem initiated. Tolerating tube feeds with minimal to no residuals. 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 Currently maintained on mechanical ventilation with FiO2 decreased to 80%/+14 of PEEP . Chest x-ray reporting worsening left lower lobe consolidation .underwent bronchoscopy today, purulent mucous plugs suctioned from the left lower lobe. Maintained on IV antibiotics as per infectious disease. Nimbex off. T-max 101.3, WBC 34.4. Telemetry sinus rhythm. Potassium 5.9, redraw pending. 02/11/2018 remains vent dependent, FiO2 40%, PEEP decreased to +10. Chest x- ray reporting improvement of the left lower lobe. Preliminary bronch & blood cultures reporting gram-positive cocci. ABGs pending. Creamy cortes secretions suctioned from endotracheal tube. Telemetry sinus rhythm. WBC trending down, 30.7. T-max 101.4. Potassium down to 5.6. Remains off of Cleviprex. 02/16/18 sitting up in chair. Swallow evaluation pending. T-max 100, WBC 24.2 .Maintained on antibiotics of vancomycin, Merrem. Continues being diuresed with 24-hour I&O reflecting a negative fluid balance. Maintaining O2 sats in the mid 90s on room air. Chest x-ray reporting improvement bilateral bases aeration, left bibasilar patchy atelectasis, possible interstitial edema. Incentive spirometer [id number] .Generalized weakness persists. Active Medications Acetaminophen (Tylenol Tab) 1,000 mg PO Q6HR PRN PRN Reason: Fever and/ or Pain Last Admin: 02/10/18 20:32 Dose: 1,000 mg Albuterol/Ipratropium (Duoneb 0.5 Mg-3 Mg/3 Ml Soln) 3 ml INHALATION RT-Q2H PRN PRN Reason: Shortness Of Breath Or Wheezing Albuterol/Ipratropium (Duoneb 0.5 Mg-3 Mg/3 Ml Soln) 3 ml INHALATION RT-Q4H [facility] Last Admin: 02/16/18 17:02 Dose: 3 ml Amlodipine Besylate (Norvasc) 5 mg PO BID [facility] Last Admin: 02/16/18 08:41 Dose: 5 mg Aspirin (Aspirin) 325 mg PO DAILY [facility] Last Admin: 02/16/18 08:41 Dose: 325 mg Atorvastatin Calcium (Lipitor) 40 mg PO DAILY [facility] Last Admin: 02/16/18 08:41 Dose: 40 mg Bisacodyl (Dulcolax) 10 mg RECTAL DAILY PRN PRN Reason: Constipation Last Admin: 02/03/18 08:45 Dose: 10 mg Budesonide (Pulmicort) 1 mg INHALATION RT-BID [facility] Last Admin: 02/16/18 08:11 Dose: 1 mg Chlorhexidine Gluconate (Peridex) 15 ml MUCOUS MEM BID [facility] Last Admin: 02/16/18 08:47 Dose: 15 ml Clopidogrel Bisulfate (Plavix) 75 mg PO DAILY [facility] Last Admin: 02/16/18 08:41 Dose: 75 mg Formoterol Fumarate (Perforomist) 20 mcg INHALATION RT-BID [facility] Last Admin: 02/16/18 08:11 Dose: 20 mcg Haloperidol Lactate (Haldol) 1 mg IVP Q1H PRN PRN Reason: Agitation or Acute Psychosis Last Admin: 02/14/18 21:32 Dose: 1 mg Heparin Sodium (Porcine) (Heparin) 5,000 unit SQ Q8HR [facility] Last Admin: 02/16/18 15:59 Dose: 5,000 unit Hydralazine HCl (Apresoline) 20 mg IVP Q4HR PRN PRN Reason: Blood Pressure - High Last Admin: 02/15/18 02:17 Dose: 20 mg Amiodarone HCl 150 mg/ (Dextrose/Water) 103 mls @ 618 mls/hr IV .Q10M PRN; Protocol PRN Reason: Per protocol Amiodarone HCl 450 mg/ (Dextrose/Water) 259 mls @ 34.53 mls/hr IV .Q7H31M PRN; Protocol PRN Reason: Per Protocol Meropenem 1 gm/ Sodium (Chloride) 100 mls @ 200 mls/hr IVPB Q8HR [facility]; Protocol Last Admin: 02/16/18 15:59 Dose: 200 mls/hr Vancomycin HCl 1,750 mg/ (Sodium Chloride) 500 mls @ 167 mls/hr IVPB Q12H [facility] Last Admin: 02/16/18 10:24 Dose: 167 mls/hr Dextrose/Sodium Chloride (Dextrose 5%-1/2ns Iv Soln) 1,000 mls @ 40 mls/hr IV .Q24H [facility] Insulin Aspart (Novolog) 0 unit SQ Q6HR [facility]; Protocol Last Admin: 02/16/18 15:59 Dose: Not Given Insulin Detemir (Levemir) 10 unit SQ HS [facility] Last Admin: 02/15/18 21:58 Dose: 10 unit Magnesium Hydroxide (Milk Of Magnesia) 2,400 mg PO BID PRN PRN Reason: Constipation Last Admin: 02/12/18 08:10 Dose: 2,400 mg Methylprednisolone Sodium Succinate (Solu-Medrol) 40 mg IV DAILY [facility] Last Admin: 02/16/18 08:47 Dose: 40 mg Metoprolol Tartrate (Lopressor) 100 mg PO BID [facility] Last Admin: 02/16/18 08:41 Dose: 100 mg Miscellaneous Information (Magnesium Per Protocol) 1 each MISCELLANE DAILY PRN ; Protocol PRN Reason: Per Protocol Miscellaneous Information (Phosphorus Per Protocol) 1 each MISCELLANE DAILY PRN ; Protocol PRN Reason: Per Protocol Miscellaneous Information (Potassium Per Protocol) 1 each MISCELLANE DAILY PRN ; Protocol PRN Reason: Per Protocol Ondansetron HCl (Zofran) 4 mg IVP Q6HR PRN PRN Reason: Nausea And Vomiting Pantoprazole Sodium (Protonix) 40 mg PO AC-BRKFST [facility] Last Admin: 02/16/18 08:41 Dose: 40 mg Senna/Docusate Sodium (Senokot-S) 2 each PO HS [facility] Last Admin: 02/15/18 21:57 Dose: 2 each Sodium Chloride (Saline Flush) 10 ml IV BID [facility] Last Admin: 02/16/18 08:47 Dose: 10 ml 02/17/2018 unsuccessful attempts at Dobbhoff tube placement yesterday. Evaluated by speech therapy, recommendations noted including dysphagia 2 diet. Blood sugars controlled. Chest x-ray continues to report improvement. IS 1500 T -max 100.3. Review of systems: CONSTITUTIONAL: fatigue. HEENT: No recent visual problems or hearing problems. Denied any sore throat. CARDIOVASCULAR: No chest pain, no palpitations, no syncope. PULMONARY: No shortness of breath, no cough, no hemoptysis. GASTROINTESTINAL: no nausea, no vomiting, no abdominal pain. Normoactive bowel sounds. NEUROLOGICAL: No headaches, generalized weakness HEMATOLOGICAL: Denies any bleeding or petechiae. GENITOURINARY: Denies any burning micturition, frequency, or urgency. ENDOCRINE: Denies any polyuria or polydipsia. PSYCHIATRIC: Anxiety The rest of the 14 point review of systems is negative Active Medications Acetaminophen (Tylenol Tab) 1,000 mg PO Q6HR PRN PRN Reason: Fever and/ or Pain Last Admin: 02/10/18 20:32 Dose: 1,000 mg Albuterol/Ipratropium (Duoneb 0.5 Mg-3 Mg/3 Ml Soln) 3 ml INHALATION RT-Q2H PRN PRN Reason: Shortness Of Breath Or Wheezing Albuterol/Ipratropium (Duoneb 0.5 Mg-3 Mg/3 Ml Soln) 3 ml INHALATION RT-Q4H [facility] Last Admin: 02/17/18 16:06 Dose: 3 ml Amlodipine Besylate (Norvasc) 5 mg PO BID [facility] Last Admin: 02/17/18 09:49 Dose: 5 mg Aspirin (Aspirin) 325 mg PO DAILY [facility] Last Admin: 02/17/18 09:46 Dose: 325 mg Atorvastatin Calcium (Lipitor) 40 mg PO DAILY [facility] Last Admin: 02/17/18 09:47 Dose: 40 mg Bisacodyl (Dulcolax) 10 mg RECTAL DAILY PRN PRN Reason: Constipation Last Admin: 02/16/18 18:45 Dose: 10 mg Budesonide (Pulmicort) 1 mg INHALATION RT-BID [facility] Last Admin: 02/17/18 07:49 Dose: 1 mg Chlorhexidine Gluconate (Peridex) 15 ml MUCOUS MEM BID [facility] Last Admin: 02/17/18 09:47 Dose: 15 ml Clopidogrel Bisulfate (Plavix) 75 mg PO DAILY [facility] Last Admin: 02/17/18 09:47 Dose: 75 mg Formoterol Fumarate (Perforomist) 20 mcg INHALATION RT-BID [facility] Last Admin: 02/17/18 07:51 Dose: 20 mcg Haloperidol Lactate (Haldol) 1 mg IVP Q1H PRN PRN Reason: Agitation or Acute Psychosis Last Admin: 02/14/18 21:32 Dose: 1 mg Heparin Sodium (Porcine) (Heparin) 5,000 unit SQ Q8HR [facility] Last Admin: 02/17/18 16:33 Dose: 5,000 unit Hydralazine HCl (Apresoline) 20 mg IVP Q4HR PRN PRN Reason: Blood Pressure - High Last Admin: 02/15/18 02:17 Dose: 20 mg Amiodarone HCl 150 mg/ (Dextrose/Water) 103 mls @ 618 mls/hr IV .Q10M PRN; Protocol PRN Reason: Per protocol Amiodarone HCl 450 mg/ (Dextrose/Water) 259 mls @ 34.53 mls/hr IV .Q7H31M PRN; Protocol PRN Reason: Per Protocol Meropenem 1 gm/ Sodium (Chloride) 100 mls @ 200 mls/hr IVPB Q8HR [facility]; Protocol Last Admin: 02/17/18 16:33 Dose: 200 mls/hr Dextrose/Sodium Chloride (Dextrose 5%-1/2ns Iv Soln) 1,000 mls @ 40 mls/hr IV .Q24H [facility] Last Admin: 02/16/18 18:51 Dose: 40 mls/hr Insulin Aspart (Novolog) 0 unit SQ Q6HR [facility]; Protocol Last Admin: 02/17/18 13:32 Dose: 2 unit Insulin Detemir (Levemir) 10 unit SQ HS [facility] Last Admin: 02/16/18 20:17 Dose: 10 unit Magnesium Hydroxide (Milk Of Magnesia) 2,400 mg PO BID PRN PRN Reason: Constipation Last Admin: 02/12/18 08:10 Dose: 2,400 mg Methylprednisolone Sodium Succinate (Solu-Medrol) 40 mg IV DAILY [facility] Last Admin: 02/17/18 09:49 Dose: 40 mg Metoprolol Tartrate (Lopressor) 100 mg PO BID [facility] Last Admin: 02/17/18 09:48 Dose: 100 mg Miscellaneous Information (Magnesium Per Protocol) 1 each MISCELLANE DAILY PRN ; Protocol PRN Reason: Per Protocol Miscellaneous Information (Phosphorus Per Protocol) 1 each MISCELLANE DAILY PRN ; Protocol PRN Reason: Per Protocol Miscellaneous Information (Potassium Per Protocol) 1 each MISCELLANE DAILY PRN ; Protocol PRN Reason: Per Protocol Ondansetron HCl (Zofran) 4 mg IVP Q6HR PRN PRN Reason: Nausea And Vomiting Pantoprazole Sodium (Protonix) 40 mg IVP DAILY [facility] Senna/Docusate Sodium (Senokot-S) 2 each PO HS [facility] Last Admin: 02/16/18 20:17 Dose: 2 each Sodium Chloride (Saline Flush) 10 ml IV BID [facility] Last Admin: 02/17/18 09:52 Dose: 10 ml 02/23/2018 maintained on broad-spectrum IV antibiotics, cultures reporting gram -positive anaerobic cocci and beta-hemolytic streptococci. Preliminary urine culture reported Klebsiella pneumoniae with repeat culture negative. Afebrile, WBC 18.2. Incentive spirometer 2500. Awaiting insurance authorization for inpatient rehab placement. Denies chest pain, palpitations or increasing shortness of breath. Telemetry sinus rhythm. Objective - Vital Signs Vital signs: Vital Signs Temp 97.1 F L 02/23/18 15:30 Pulse 76 02/23/18 16:25 Resp 16 02/23/18 16:13 BP 108/71 02/23/18 15:30 Pulse Ox 95 02/23/18 16:13 Intake & Output 02/22/18 02/23/18 02/23/18 18:59 06:59 18:59 Intake Total 280 110 580 Output Total 450 1350 Balance -170 110 -770 Weight 88.6 kg Intake: IV 30 110 100 Invasive Line 10 30 10 Meropenem 1 gm In Sodium 100 100 Chloride 0.9% 100 ml @ 200 mls/hr IVPB Q8HR [facility] Rx#:[id number] Oral 250 480 Output: Urine 450 1350 Other: Voiding Method Toilet Toilet Urinal Urinal ABP, PAP, CO, CI - Last Documented Arterial Blood Pressure 100/64 Pulmonary Artery Pressure 36/26 Cardiac Output 6.4 Cardiac Index 2.9 - Exam GENERAL: Patient is sitting up in chair, awake alert and oriented 3. No acute distress. HEENT: Extraocular muscles intact. No pallor no icterus. CARDIOVASCULAR: S1 and S2 present. No murmurs, rubs, or gallops. PULMONARY: Diminished bilateral bases. Occasional scattered rhonchi ABDOMEN: Soft, nontender, nondistended, normoactive bowel sounds. No palpable organomegaly. EXTREMITIES: No rash. Pulses palpable laterally 2+. Knee high teds in place NEUROLOGICAL: Awake alert and oriented 3. Generalized weakness. Able to move all his extremities. Microbiology 02/08/18 10:50 Bronchial Washings - Left Fungal Culture - Preliminary 02/10/18 09:50 Bronchial Washings - Left Fungal Culture - Preliminary 02/14/18 19:25 Blood Blood Culture - Final No Growth after 144 hours 02/10/18 09:50 Bronchial Washings - Left Acid Fast Bacilli Smear - Final 02/10/18 09:50 Bronchial Washings - Left Acid Fast Bacilli Culture - Preliminary 02/08/18 10:50 Bronchial Washings - Left Acid Fast Bacilli Smear - Final 02/08/18 10:50 Bronchial Washings - Left Acid Fast Bacilli Culture - Preliminary 02/14/18 21:00 Sputum Gram Stain - Final 02/14/18 21:00 Sputum Sputum Culture - Final 02/11/18 07:00 Blood Blood Culture - Final No Growth after 144 hours 02/11/18 06:30 Blood Blood Culture - Final No Growth after 144 hours 02/08/18 17:50 Blood Blood Culture Gram Stain - Final 02/08/18 17:50 Blood Blood Culture - Final Anaerobic Gram Positive Cocci 02/14/18 14:10 Urine,Catheterized Urine Culture - Final 02/10/18 09:50 Bronchial Washings - Left Gram Stain - Final 02/10/18 09:50 Bronchial Washings - Left Bronchial Washings Culture - Final 02/06/18 12:00 Blood Blood Culture - Final No Growth after 144 hours 02/08/18 10:50 Bronchial Washings - Left Gram Stain - Final 02/08/18 10:50 Bronchial Washings - Left Bronchial Washings Culture - Final 02/08/18 17:50 Blood Blood Culture - Final 02/08/18 22:45 Urine,Catheterized Urine Culture - Final 02/06/18 22:05 Sputum Gram Stain - Final 02/06/18 22:05 Sputum Sputum Culture - Final Beta Hemolytic Strep Group C 02/07/18 19:20 Urine,Catheterized Urine Culture - Final 02/06/18 12:00 Urine,Catheterized Urine Culture - Final 02/03/18 01:25 Sputum Gram Stain - Final 02/03/18 01:25 Sputum Sputum Culture - Final 01/29/18 23:00 Urine,Clean Catch Urine Culture - Final Klebsiella pneumoniae 01/29/18 19:41 Nasal Swab Nasal Screen MRSA/MSSA - Final - Labs CBC & Chem 7: 02/23/18 05:47 02/22/18 19:06 Labs: Abnormal Lab Results - Last 24 Hours (Table) 02/22/18 02/22/18 02/22/18 Range/Units 16:41 19:06 19:57 WBC (3.8-10.6) k/uL RBC (4.30-5.90) m/uL Hgb (13.0-17.5) gm/dL Hct (39.0-53.0) % Plt Count (150-450) k/uL Neutrophils # (Manual) (1.3-7.7) k/uL Lymphocytes # (Manual) (1.0-4.8) k/uL Monocytes # (Manual) (0-1.0) k/uL Glucose 111 H (74-99) mg/dL POC Glucose (mg/dL) 108 H 100 H (75-99) mg/dL Total Protein 6.1 L (6.3-8.2) g/dL Albumin 3.3 L (3.5-5.0) g/dL 02/23/18 02/23/18 02/23/18 Range/Units 05:47 11:17 16:12 WBC 18.2 H (3.8-10.6) k/uL RBC 3.56 L (4.30-5.90) m/uL Hgb 10.6 L (13.0-17.5) gm/dL Hct 34.2 L (39.0-53.0) % Plt Count 702 H (150-450) k/uL Neutrophils # (Manual) 8.55 H (1.3-7.7) k/uL Lymphocytes # (Manual) 7.83 H (1.0-4.8) k/uL Monocytes # (Manual) 1.82 H (0-1.0) k/uL Glucose (74-99) mg/dL POC Glucose (mg/dL) 106 H 114 H (75-99) mg/dL Total Protein (6.3-8.2) g/dL Albumin (3.5-5.0) g/dL Microbiology - Last 24 Hours (Table) 02/08/18 10:50 Fungal Culture - Preliminary Bronchial Washings - Left 02/10/18 09:50 Fungal Culture - Preliminary Bronchial Washings - Left Assessment and Plan Assessment: CAD ,Status post two-vessel coronary artery bypass grafting Acute hypoxic respiratory, status post mechanical ventilation dependent- likely due to ARDS Acute non-ST elevated [place] Status post bronchoscopy, mucus plugging left lower lobe pneumonia, ventilator associated, possibly gram-negative healthcare associated Acute critical polyneuropathy and polymyopathy Current smoker with a 26 pack years Hypertension Obesity, BMI 32.4 Generalized anxiety Acute metabolic encephalopathy, delirium improving, multifactorial. Plan: Continue on current medication regime , Protonix ,subcu heparin , Flomax, monitoring and symptomatic treatment. PT/OT.maintain nebulized bronchodilators , antibiotics. Strict aspiration precautions . Aggressive pulmonary toileting with incentive spirometer reinforced. Authorization pending for discharge to Subacute rehab. The impression and plan of care has been dictated as directed. : I performed a history and examination of this patient, discussed the same with the dictator. I agree with the dictator's note ,documented as a scribe. Any additional findings or plans will be noted.
[2018-02-23] MEDS: ACETAMINOPHEN TAB 500 MG TAB PO PRN (19:52)
[2018-02-23 20:42] LABS: Glucose,Whole Blood 158 mg/dL (75-99)
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
[2018-02-23] MEDS ORDERED: MD COMMUNICATION TO PHARMACY 1 EACH MISC PO PRN (22:04)
[2018-02-23] MEDS: INSULIN DETEMIR 100 UNIT/ML 10 ML VIAL SQ SCH (22:13)
[2018-02-23] MEDS: SENNOSIDES-DOCUSATE SODIUM 1 EACH TAB PO SCH (22:15)
[2018-02-24] MEDS: IPRATROPIUM-ALBUTEROL 3 ML NEB INHALATION SCH ×5 (00:31→11:36)
[2018-02-24 05:38] LABS: Glucose,Whole Blood 91 mg/dL (75-99)
[2018-02-24] MEDS: INSULIN ASPART 100 UNIT/ML 1 ML 10 ML VIAL SQ SCH ×3 (06:50→11:59)
[2018-02-24] MEDS: PANTOPRAZOLE 40 MG TABLET PO SCH (06:54)
[2018-02-24] MEDS ORDERED: ACETAMINOPHEN TAB 325 MG TAB PO PRN (07:21)
[2018-02-24 08:06] VITALS: RESP 17; TEMP 98.4
[2018-02-24] MEDS: CLOPIDOGREL 75 MG TAB PO SCH (08:06)
[2018-02-24] MEDS: ATORVASTATIN 40 MG TAB PO SCH (08:06)
[2018-02-24] MEDS: METOPROLOL TARTRATE 50 MG TAB PO SCH (08:06)
[2018-02-24] MEDS: ASPIRIN 325 MG TAB PO SCH (08:06)
[2018-02-24] MEDS: TAMSULOSIN 0.4 MG CAP.ER.24H PO SCH (08:06)
[2018-02-24] MEDS: LOSARTAN 25 MG TAB PO SCH (08:07)
[2018-02-24] MEDS: amLODIPine 10 MG TAB PO SCH (08:07)
[2018-02-24] MEDS: HEPARIN SODIUM,PORCINE 5,000 UNIT/ML 1 ML VIAL SQ SCH (08:07)
[2018-02-24] MEDS: SERTRALINE 50 MG TAB PO SCH (08:07)
[2018-02-24] MEDS ORDERED: predniSONE 10 MG TAB PO SCH (09:00)
[2018-02-24] MEDS: MEROPENEM 1 GM in SODIUM CHLORIDE 0.9% 100 ML IVPB SCH (09:13)
[2018-02-24 10:55] VITALS: BP 117/76
[2018-02-24 11:47] LABS: Glucose,Whole Blood 102 mg/dL (75-99)
[2018-02-24 11:50] VITALS: PULSE 85
[2018-02-24] MEDS ORDERED: PNEUMOCOCCAL VACC-PNEUMOVAX 23 25 MCG/0.5 ML VIAL IM ONE (14:18)
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
--- NOTE | 2018-02-24 16:05 | PN ---
PROGRESS NOTE DATE OF SERVICE: 02/24/2018 This 42-year-old gentleman who was admitted with a CAD/CABG had multiple medical issues including bacteremia. The patient also had anaerobic gram-positive cocci and grown from the culture. The patient treated with antibiotics. The patient being closely monitored. Patient much improved. Currently the patient is slated to be sent home. The white count is 18.2, hemoglobin is 10.6. Patient had history of splenectomy also. PAST MEDICAL HISTORY: Reviewed. REVIEW OF SYSTEMS: Cardiac: No angina or palpitations. RESPIRATORY: As mentioned earlier. GI: As mentioned earlier. no dysuria. Nervous system: No numbness or weakness. CURRENT MEDICATIONS: Reviewed and include: 1. Tylenol 650 q.6h p.r.n. 2. DuoNeb q.i.d. and p.r.n. 3. Norvasc 10 mg daily. 4. Aspirin 320. 5. Lipitor 40 mg. 6. Plavix 75 mg. 7. Heparin 5000 subcu q8h. 8. Humalog. 9. Levemir 10 units subcu q.h.s. 10.Lopressor. 11.Potassium supplements. 12.Protonix. 13.Zoloft. 14.Flomax. PHYSICAL EXAM: Patient is alert, oriented x three. Pulse is 88, blood pressure 170/76, respiratory rate 17, temperature normal, pulse ox 98% on room air. HEENT: Conjunctivae normal. Oral mucosa moist. Neck is no jugular venous distention. No carotid bruit. No lymph node enlargement. Cardiovascular: S1, S2 muffled. Respiratory: Breath sounds diminished in the bases. A few scattered rhonchi and crackles. ABDOMEN: Soft, nontender. Legs are no edema. No swelling. Central nervous system: No focal deficits. LABS: WBC 18.2, Hemoglobin 10.6. Other labs are noted. ASSESSMENT: 1. Coronary artery disease status post coronary artery bypass grafting. 2. Acute hypoxic respiratory failure status post mechanical ventilation with ARDS. 3. Acute non ST-segment elevation myocardial infarction, present on admission. 4. Status post bronchoscopy and mucus plugging. 5. Left lower pneumonia possibly gram-negative healthcare associated. 6. Beta hemolytic strep group C and as well as anaerobic gram-positive cocci from the blood cultures. 7. Acute polyneuropathy and polymyopathy. 8. Critical care. 9. History of nicotine dependence. 10.Hypertension. 11.Obesity. 12.History of anxiety. 13.Change in mental status, acute metabolic encephalopathy. 14.Delirium multifactorial. RECOMMENDATIONS AND DISCUSSION: Recommend to continue current medications, management, symptomatic treatment. Medication reconciliation was done. I would recommend continue with Lantus 10 units at bedtime and monitor Accu-Cheks a.c. and q.h.s. closely. Once the blood sugar is controlled, oral antidiabetic medications altogether the insulin could be discontinued depending upon the blood sugar glucose levels. Otherwise, also recommend antibiotics per ID recommendations. Bronchodilators. Incentive spirometry. Continue rest of medications. Antiplatelet agents and beta blockers and I would also recommend to complete the post splenectomy vaccination per Infectious Disease also. Overall, prognosis . Currently the patient is stable and I would recommend close followup with multiple consultants and also with primary physician, Dr. Bansal in the outpatient setting. MMODL / IJN: [id number] / MTDD
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
== END 2018-02-24 15:57 | disposition home health service (06) | DRG 233 ==
LOC: EC 00:15 → OBSVTOIN 01:13 → 1SOBS 01:13 → 3SCARD 01:54 → 2SICU 01-31 09:58 → 3SCARD 02-18 14:00
PROVIDERS: ADMIT Surgery; ATTEND Surgery
PROC: B2151ZZ Fluoroscopy of Left Heart using Low Osmolar Contrast (ICD-10-PCS; 2018-01-29)
PROC: B2111ZZ Fluoroscopy of Multiple Coronary Arteries using Low Osmolar Contrast (ICD-10-PCS; 2018-01-29)
PROC: 4A023N7 Measurement of Cardiac Sampling and Pressure, Left Heart, Percutaneous Approach (ICD-10-PCS; 2018-01-29)
PROC: 02HV33Z Insertion of Infusion Device into Superior Vena Cava, Percutaneous Approach (ICD-10-PCS; principal; 2018-01-29 14:14)
PROC: 02100Z9 Bypass Coronary Artery, One Artery from Left Internal Mammary, Open Approach (ICD-10-PCS; 2018-01-31)
PROC: 4A0335C Measurement of Arterial Flow, Coronary, Percutaneous Approach (ICD-10-PCS; 2018-01-31)
PROC: 5A1945Z Respiratory Ventilation, 24-96 Consecutive Hours (ICD-10-PCS; 2018-01-31)
PROC: 03BC4ZZ Excision of Left Radial Artery, Percutaneous Endoscopic Approach (ICD-10-PCS; 2018-01-31)
PROC: 02100A9 Bypass Coronary Artery, One Artery from Left Internal Mammary with Autologous Arterial Tissue, Open Approach (ICD-10-PCS; 2018-01-31)
PROC: B246ZZ4 Ultrasonography of Right and Left Heart, Transesophageal (ICD-10-PCS; 2018-01-31)
PROC: 4A133J1 Monitoring of Arterial Pulse, Peripheral, Percutaneous Approach (ICD-10-PCS; 2018-02-01)
PROC: 03HY32Z Insertion of Monitoring Device into Upper Artery, Percutaneous Approach (ICD-10-PCS; 2018-02-01)
PROC: 4A133B1 Monitoring of Arterial Pressure, Peripheral, Percutaneous Approach (ICD-10-PCS; 2018-02-01)
PROC: 0B9G8ZZ Drainage of Left Upper Lung Lobe, Via Natural or Artificial Opening Endoscopic (ICD-10-PCS; 2018-02-07)
PROC: 0B9J8ZZ Drainage of Left Lower Lung Lobe, Via Natural or Artificial Opening Endoscopic (ICD-10-PCS; 2018-02-07)
PROC: 0B9J8ZX Drainage of Left Lower Lung Lobe, Via Natural or Artificial Opening Endoscopic, Diagnostic (ICD-10-PCS; 2018-02-08)
PROC: 0B9G8ZX Drainage of Left Upper Lung Lobe, Via Natural or Artificial Opening Endoscopic, Diagnostic (ICD-10-PCS; 2018-02-08)
PROC: 0B9J8ZX Drainage of Left Lower Lung Lobe, Via Natural or Artificial Opening Endoscopic, Diagnostic (ICD-10-PCS; 2018-02-10)
PROC: 0B9G8ZX Drainage of Left Upper Lung Lobe, Via Natural or Artificial Opening Endoscopic, Diagnostic (ICD-10-PCS; 2018-02-10)
PROC: 0CJS8ZZ Inspection of Larynx, Via Natural or Artificial Opening Endoscopic (ICD-10-PCS; 2018-02-21)
DX: I21.4 Non-ST elevation (NSTEMI) myocardial infarction (principal); G93.41 Metabolic encephalopathy; J80 Acute respiratory distress syndrome; A41.9 Sepsis, unspecified organism; D62 Acute posthemorrhagic anemia; E87.4 Mixed disorder of acid-base balance; F05 Delirium due to known physiological condition; F23 Brief psychotic disorder; G62.81 Critical illness polyneuropathy; J44.0 Chronic obstructive pulmonary disease with (acute) lower respiratory infection; J90 Pleural effusion, not elsewhere classified; J95.851 Ventilator associated pneumonia; J98.11 Atelectasis; N39.0 Urinary tract infection, site not specified; T17.890A Other foreign object in other parts of respiratory tract causing asphyxiation, initial encounter; T82.855A Stenosis of coronary artery stent, initial encounter; I25.110 Atherosclerotic heart disease of native coronary artery with unstable angina pectoris; B96.1 Klebsiella pneumoniae [K. pneumoniae] as the cause of diseases classified elsewhere; E66.9 Obesity, unspecified; E78.5 Hyperlipidemia, unspecified; E87.5 Hyperkalemia; F17.210 Nicotine dependence, cigarettes, uncomplicated; F41.1 Generalized anxiety disorder; I11.9 Hypertensive heart disease without heart failure; J04.0 Acute laryngitis; K59.00 Constipation, unspecified; R73.03 Prediabetes; Y83.1 Surgical operation with implant of artificial internal device as the cause of abnormal reaction of the patient, or of later complication, without mention of misadventure at the time of the procedure; Y84.8 Other medical procedures as the cause of abnormal reaction of the patient, or of later complication, without mention of misadventure at the time of the procedure; Z68.32 Body mass index [BMI] 32.0-32.9, adult; Z79.02 Long term (current) use of antithrombotics/antiplatelets; Z79.2 Long term (current) use of antibiotics; Z79.4 Long term (current) use of insulin; Z79.82 Long term (current) use of aspirin; Z79.899 Other long term (current) drug therapy; Z82.49 Family history of ischemic heart disease and other diseases of the circulatory system; Z83.3 Family history of diabetes mellitus; Z87.01 Personal history of pneumonia (recurrent); Z90.81 Acquired absence of spleen; Z91.14 Patient's other noncompliance with medication regimen; Z91.19 Patient's noncompliance with other medical treatment and regimen; Z88.0 Allergy status to penicillin
CPT/HCPCS: 31624; 36415; 36569; 36600; 71045; 71046; 71275; 74230; 76937; 80048; 80053; 80061; 80074; 80202; 81003; 82330; 82550; 82553; 82728; 82746; 82805; 83036; 83540; 83550; 83735; 83880; 83921; 84100; 84132; 84439; 84443; 84484; 85025; 85027; 85520; 85610; 85652; 85730; 86140; 86850; 86891; 86900; 86901; 86920; 87040; 87070; 87077; 87086; 87102; 87116; 87186; 87205; 87206; 87252; 87496; 87498; 87502; 87529; 87634; 87798; 88108; 88305; 89050; 90686; 90732; 93306; 93308; 93458; 93880; 93922; 93970; 94002; 94003; 94150; 94640; 94660; 94760; 96365; 96366; 96376; 99285

== ENCOUNTER 2019-02-16 09:57 | Day surgery (SDC) | payer BC ==
[2019-02-15 08:40] VITALS: BMI 29.9
[~2019-02-16 09:57] MED LIST: LACTATED RINGERS 1,000 ML IV SCH
[2019-02-16 10:26] VITALS: TEMP 97.6
[2019-02-16] MEDS ORDERED: LIDOCAINE 1% 20 ML VIAL (10MG/ML) FOR IV START INTRADERMA ONE (10:39)
[2019-02-16] MEDS ORDERED: LIDOCAINE 1% INJ 10MG/ML (20 ML MDV) ONE (11:07)
[2019-02-16] MEDS ORDERED: PROPOFOL 10 MG/ML 20 ML VIAL IV ONE (11:07)
[2019-02-16 11:32] VITALS: RESP 16
--- NOTE | 2019-02-16 11:37 | P.PCN ---
Date of Procedure: 02/16/19 Description of Procedure: BRIEF HISTORY: Patient is a 43-year-old, pleasant, male patient presenting for evaluation of epigastric abdominal pain. He reports epigastric and periumbilical which persists. Patient currently on Protonix therapy will continue to have symptoms. PROCEDURE PERFORMED: Esophagogastroduodenoscopy with biopsy. PREOPERATIVE DIAGNOSIS: Epigastric abdominal pain. ESTIMATED BLOOD LOSS: Minimal. IV sedation per anesthesia. PROCEDURE: After informed consent was obtained, the patient was brought into the endoscopy unit. IV sedation was administered by Anesthesia under continuous monitoring. Initially the Olympus GIF-190 video endoscope was inserted into the mouth. Esophagus intubated without any difficulty. It was gradually advanced into the stomach and duodenum and carefully examined. The bulb and the second part of the duodenum appeared normal with biopsies taken. The scope at this time was withdrawn to the stomach, adequately insufflated with air, and upon careful examination, mucosa of the antrum, body, cardia and the fundus appeared normal with mild scattered erythema suggestive of mild gastritis with biopsies of the antrum and body taken. The scope was then withdrawn into the esophagus. The GE junction was located at 40 cm from the incisors, with a small 1 cm hiatal hernia noted and biopsies of the GE junction taken. The esophagus appeared normal. There were no erosions or ulcerations seen and the patient tolerated the procedure well. IMPRESSION: 1. Mild gastritis of the antrum and body biopsied. 2. Biopsies of the GE junction and duodenum. 3. Small hiatal hernia. RECOMMENDATIONS: The findings of this examination were discussed with the patient and his brother. Okay to continue medications and Protonix therapy. We'll give the patient a trial of dicyclomine 20 mg as needed every 8 hours for abdominal pain. Can consider further evaluation with imaging, colonoscopy or other modalities of pain persists.
[2019-02-16 11:47] VITALS: BP 148/93; PULSE 72
== END 2019-02-16 12:08 | disposition home or self-care (01) ==
LOC: ORWHC2ENDO 09:57
PROVIDERS: ATTEND Internal Medicine
DX: K29.50 Unspecified chronic gastritis without bleeding (principal); K44.9 Diaphragmatic hernia without obstruction or gangrene; K20.9 Esophagitis, unspecified; I25.10 Atherosclerotic heart disease of native coronary artery without angina pectoris; E11.9 Type 2 diabetes mellitus without complications; I10 Essential (primary) hypertension; Z87.891 Personal history of nicotine dependence; Z88.0 Allergy status to penicillin; Z79.02 Long term (current) use of antithrombotics/antiplatelets; Z79.899 Other long term (current) drug therapy; Z98.890 Other specified postprocedural states; Z90.89 Acquired absence of other organs; I25.2 Old myocardial infarction; Z95.5 Presence of coronary angioplasty implant and graft; F41.9 Anxiety disorder, unspecified
CPT/HCPCS: 88305; 43239; J2001; J2704

== ENCOUNTER → 2019-09-23 | Outpatient (CLI) | payer BC ==
--- NOTE | 2019-09-23 13:20 | CT ---
EXAMINATION TYPE: CT abdomen pelvis w con DATE OF EXAM: 09/23/2019 COMPARISON: None. HISTORY: lower abdominal pain CT DLP: 1412.9 mGycm, Automated Exposure Control for Dose Reduction was Utilized. CONTRAST: CT scan of the abdomen and pelvis is performed with oral and with IV Contrast, patient injected with 100 mL of Isovue 300. FINDINGS: LUNG BASES: Slightly elevated left hemidiaphragm. Partial visualization of post-CABG changes. LIVER/GB: Liver is diffusely low dense consistent with fatty infiltration. Cholecystectomy clips are seen. PANCREAS: No significant abnormality is seen. SPLEEN: No significant abnormality is seen. ADRENALS: No significant abnormality is seen. KIDNEYS: There are 2 simple appearing roughly 1 cm thin-walled cyst laterally upper to mid pole level left kidney. Symmetric cortical medullary uptake and excretion from both kidneys without hydronephro sis seen bilaterally. BOWEL: Oral contrast reaches level of the proximal transverse colon. No suspicious small or large bow el dilatation. Mildly distended debris-filled stomach. No significant diverticulosis or CT evidence f or acute diverticulitis. PROSTATE/SEMINAL VESICLES: Normal-sized prostate. Occasional left-sided pelvic phlebolith LYMPH NODES: No greater than 1cm abdominal or pelvic lymph nodes are appreciated. OSSEOUS STRUCTURES: Moderate anterior lateral spurring L3 and L4 levels. Slight scoliotic curvature. No large disc herniation. OTHER: Mild calcified plaque of the aorta extends into branch vessels. Incidental accessory right krystian al artery coronal image 50. In the lower pole IMPRESSION: No significant diverticulosis or CT evidence for acute diverticulitis. No acute findings are evident.
== END | disposition home or self-care (01) ==
LOC: RADCTMAIN 10:55
PROVIDERS: ATTEND Surgery Plastic and Reconstructive Surgery
DX: K57.32 Diverticulitis of large intestine without perforation or abscess without bleeding (principal); Z88.0 Allergy status to penicillin
CPT/HCPCS: 74177; Q9967